=== PATIENT | female | born 1945 | race Caucasian/White ===

== ENCOUNTER 2016-10-26 16:50 | Emergency (ER) | payer OTHER, BC ==
--- NOTE | 2016-10-26 17:19 | PDOC ---
History of Present Illness - General History Source: Patient Exam Limitations: No Limitations - History of Present Illness Initial Comments: The patient is a 71 year old female with a significant past medical history of Alzheimer's dementia, chronic vasculitis, chronic rheumatoid arthritis, on steroids, DMARDs, pain medicine, and hypertension, who presents to the ED with intermittent abdominal pain, nausea, vomiting for the past 5 days. Patient has not been eating much for 5 days due to a loss of appetite. Patient states she has lost 40 pounds in the past year. Denies SOB, chest pain, fever, chills, headache, diarrhea, hematochezia. Patient denies dysuria, frequency, urinary Patient denies sick contacts, recent travels. Patient is a current smoker. PCP: Dr. Fajardo Restaurant Mgr: Dr. Vicente <Primo Blackwell - Last Filed: 10/26/16 20:10> - General History Source: Patient Exam Limitations: No Limitations <Cory Cabral - Last Filed: 10/27/16 07:28> - General Chief Complaint: Chronic pain Stated Complaint: CHRONIC ABDOMINAL PAIN Time Seen by Provider: 10/26/16 17:01 Past History <Primo Blackwell - Last Filed: 10/26/16 20:10> - Past Medical History Cardiac Disorders: Yes (ATRIAL FIBRILLATION) COPD: Yes Dementia: Yes (Memory loss) HTN: Yes Hypercholesterolemia: Yes Seizures: Yes - Surgical History Orthopedic Surgery: Yes (Left Toal Hip Replacement) - Immunization History Td Vaccination: Yes (6 YEARS AGO) Immunization Up to Date: Yes - Psycho/Social/Smoking Cessation Hx Anxiety: No Suicidal Ideation: No Smoking Status: Yes Smoking History: Current every day smoker Have you smoked in the past 12 months: No Number of Cigarettes Smoked Daily: 20 Hx Alcohol Use: No Drug/Substance Use Hx: No Substance Use Type: None <Cory Cabral - Last Filed: 10/27/16 07:28> - Past Medical History Allergies/Adverse Reactions: Allergies Allergy/AdvReac Type Severity Reaction Status Date / Time Sulfa (Sulfonamide Allergy Hives Verified 02/12/15 07:16 Antibiotics) dipyridamole AdvReac Mild headache Verified 02/12/15 07:17 [From Persantine] indomethacin [From Indocin] AdvReac Mild headache Verified 02/12/15 07:17 Home Medications: Ambulatory Orders Amlodipine Besylate [Norvasc -] 5 mg PO HS 10/26/16 Ascorbate Calcium [Vitamin C] 500 mg PO DAILY 10/26/16 Bupropion HCl [Bupropion HCl Sr] 150 mg PO DAILY 10/26/16 Cholecalciferol (Vitamin D3) [Vitamin D3 -] 2,000 unit PO DAILY 10/26/16 Clonidine HCl [Catapres] 0.3 mg PO DAILY 10/26/16 Donepezil HCl [Aricept -] 5 mg PO DAILY 10/26/16 Enalapril Maleate [Vasotec] 20 mg PO HS 10/26/16 Esomeprazole Magnesium [Nexium 24Hr] 40 mg PO DAILY 10/26/16 Folic Acid - 1 mg PO DAILY 10/26/16 Furosemide [Lasix -] 20 mg PO MOWEFR 10/26/16 Gabapentin [Neurontin] 600 mg PO DAILY 10/26/16 Hydralazine HCl [Apresoline -] 25 mg PO DAILY 10/26/16 Hydralazine HCl [Apresoline -] 50 mg PO HS 10/26/16 Immun Glob G(IgG)/Gly/Iga Ov50 [Gammagard Liquid 10% Vial] 40 ml IJ ASDIR Levothyroxine [Synthroid -] 25 mcg PO DAILY 10/26/16 Lutein 40 mg PO DAILY 10/26/16 Methotrexate [Mexate -] 20 mg PO Q7D 10/26/16 Metoprolol Tartrate [Lopressor -] 50 mg PO DAILY 10/26/16 Metoprolol Tartrate [Lopressor -] 75 mg PO HS 10/26/16 Mirtazapine 15 mg PO DAILY 10/26/16 Morphine *Sr* [Ms Contin -] 12 mg PO DAILY 10/26/16 Morphine *Sr* [Ms Contin -] 30 mg PO HS 10/26/16 Potassium Chloride [Klor-Con 10] 10 meq PO BID 10/26/16 Prednisone [Deltasone -] 5 mg PO DAILY 10/26/16 Simvastatin 40 mg PO DAILY 10/26/16 Vitamin E 800 unit PO DAILY 10/26/16 Review of Systems - Review of Systems Able to Perform ROS?: Yes Comments:: 10/26/16 17:55 GENERAL/CONSTITUTIONAL: No fever or chills. No weakness. Loss in appetite. HEAD, EYES, EARS, NOSE AND THROAT: No change in vision. No ear pain or discharge. No sore throat. CARDIOVASCULAR: No chest pain or shortness of breath. RESPIRATORY: No cough, wheezing, or hemoptysis. GASTROINTESTINAL: + nausea, vomiting, abdominal pain. No diarrhea or constipation. GENITOURINARY: No dysuria, frequency, or change in urination. MUSCULOSKELETAL: No joint or muscle swelling or pain. No neck or back pain. SKIN: No rash NEUROLOGIC: No headache, vertigo, loss of consciousness, or change in strength/ sensation. ENDOCRINE: No increased thirst. No abnormal weight change. HEMATOLOGIC/LYMPHATIC: No anemia, easy bleeding, or history of blood clots. ALLERGIC/IMMUNOLOGIC: No hives or skin allergy. <Primo Blackwell - Last Filed: 10/26/16 20:10> *Physical Exam - Vital Signs Last Vital Signs Temp Pulse Resp BP Pulse Ox 99.2 F 62 18 142/70 94 L 10/26/16 17:00 10/26/16 17:00 10/26/16 17:00 10/26/16 17:00 10/26/16 17:00 - Physical Exam Comments: 10/26/16 17:55 GENERAL: Awake, alert, and fully oriented, in no acute distress HEAD: No signs of trauma EYES: PERRLA, EOMI, sclera anicteric, conjunctiva clear ENT: Auricles normal inspection, hearing grossly normal, nares patent, oropharynx clear without exudates. Moist mucosa NECK: Normal ROM, supple, no lymphadenopathy, JVD, or masses LUNGS: Breath sounds equal, clear to auscultation bilaterally. No wheezes, and no crackles HEART: Regular rate and rhythm, normal S1 and S2, no murmurs, rubs or gallops ABDOMEN: Soft, nontender, normoactive bowel sounds. No guarding, no rebound. No masses EXTREMITIES: Normal range of motion, no edema. No clubbing or cyanosis. No cords, erythema, or tenderness NEUROLOGICAL: Cranial nerves II through XII grossly intact. Normal speech, normal gait SKIN: Warm, Dry, normal turgor, no rashes or lesions noted. <Primo Blackwell - Last Filed: 10/26/16 20:10> ED Treatment Course - LABORATORY CBC & Chemistry Diagram: 10/26/16 17:37 10/26/16 17:37 <Primo Blackwell - Last Filed: 10/26/16 20:10> - LABORATORY CBC & Chemistry Diagram: 10/26/16 17:37 10/26/16 17:37 - RADIOLOGY Radiology Studies Ordered: Category Date Time Status ABDOMEN & PELVIS CT WITH CONTR [CT] Stat CT Scan 10/26/16 17:[address] WITHOUT CONTRAST [CT] Stat CT Scan 10/26/16 17:12 Ordered CHEST X-RAY PORTABLE* [RAD] Stat Radiology 10/26/16 17:11 Ordered <MariannaCory - Last Filed: 10/27/16 07:28> Medical Decision Making - Medical Decision Making 10/26/16 20:[address] Wayne ( on-call for PCP Dr. Fajardo) at 20:10. <Primo Blackwell - Last Filed: 10/26/16 20:10> - Medical Decision Making 10/26/16 17:19 A portion of this note was documented by scribe services under my direction. I have reviewed the details of the note, within reason, and agree with the documentation with the following case summary and management plan written by me. Patient treated in the ED. Nursing notes are reviewed and incorporated into the medical decision-making. Vital signs reviewed. Peripheral IV access obtained by the nurse, laboratory studies are drawn and sent, reviewed and interpreted by myself. 71 year old female with past medical history of arthritis, dementia, high blood pressure, CHF, pulmonary embolism, hyperlipidemia, asthma/COPD, current smoker presents with failure to thrive. The patient over the course of the year has been having intermittent chronic abdominal pain. She has been may be having poor appetite and more recently since last 5 days. Patient reports every time she eats she feels nauseous. Denies any abdominal pain at this moment. Denies fevers or chills or sick contact. Denies diarrhea. The daughter had noted that the patient has lost 40 pounds over the course of the year but the patient maintains no appetite. Patient called her doctor who advised patient to come to the ER. The patient appears to be having failure to thrive. This may be secondary to poor appetite. However, we'll need to investigate for other causes such as occult infection, cardiac abnormalities, metabolic disarray, intra-abdominal or intracranial disarray, malignancy. However, the patient overall is non-toxic appearing. We'll obtain labs, CAT scan and reassess and touch base with the PMD. 10/26/16 19:12 CBC, BMP 10/26/16 17:37 10/26/16 17:37 CMP Sodium 131 mmol/L (136-145) L 10/26/16 17:37 Potassium 3.9 mmol/L (3.5-5.1) 10/26/16 17:37 Chloride 94 mmol/L (98-107) L 10/26/16 17:37 Carbon Dioxide 30 mmol/L (22-28) H 10/26/16 17:37 Anion Gap 7 (8-16) L 10/26/16 17:37 BUN 10 mg/dl (7-18) D 10/26/16 17:37 Creatinine 0.5 mg/dl (0.6-1.3) L D 10/26/16 17:37 Creat Clearance w eGFR > 60 (>60) 10/26/16 17:37 Random Glucose 101 mg/dl (74-106) 10/26/16 17:37 Calcium 9.0 mg/dl (8.4-10.2) 10/26/16 17:37 Phosphorus 3.4 mg/dl (2.5-4.6) 10/26/16 17:37 Magnesium 1.6 mg/dL (1.8-2.4) L 10/26/16 17:37 Total Bilirubin 0.5 mg/dl (0.2-1.0) 10/26/16 17:37 AST 27 U/L (10-42) 10/26/16 17:37 ALT < 9 U/L (10-40) L 10/26/16 17:37 Alkaline Phosphatase 72 U/L (32-92) 10/26/16 17:37 Creatine Kinase 18 IU/L (26-140) L 10/26/16 17:37 Troponin I < 0.03 ng/ml (0.03-0.50) L 10/26/16 17:37 Total Protein 6.9 g/dl (6.4-8.3) 10/26/16 17:37 Albumin 2.9 g/dl (3.5-5.0) L 10/26/16 17:37 Urine Test Results Urine Color Yellow 10/26/16 18:15 Urine Appearance Clear 10/26/16 18:15 Urine pH 7.0 (4.5-8) 10/26/16 18:15 [address] [place] 1.015 (1.005-1.025) 10/26/16 18:15 Urine Protein Trace (NEGATIVE) 10/26/16 18:15 Urine Glucose (UA) Negative (NEGATIVE) 10/26/16 18:15 Urine Ketones Trace (NEGATIVE) 10/26/16 18:15 Urine Blood 1+ (NEGATIVE) H 10/26/16 18:15 Urine Nitrite Negative (NEGATIVE) 10/26/16 18:15 Urine Bilirubin Negative (NEGATIVE) 10/26/16 18:15 Ur Leukocyte Esterase Trace (NEGATIVE) 10/26/16 18:15 CT head reviewed. No acute findings. Chest xray reviewed. [facility] Ruiz for further management and disposition. <Cory Cabral - Last Filed: 10/27/16 07:28> *DC/Admit/Observation/Transfer - Attestations Scribe Attestion: 10/26/16 17:56 Documentation prepared by Primo Blackwell, acting as biomedical engineering director for Cory Cabral MD, . <Primo Blackwell - Last Filed: 10/26/16 20:10> <Cory Cabral - Last Filed: 10/27/16 07:28> Diagnosis at time of Disposition: Failure to thrive, Abdominal pain - Discharge Dispostion Disposition: HOME Condition at time of disposition: Good - Referrals Referrals: Devin Fajardo MD [Primary Care Provider] - - Patient Instructions Additional Instructions: Is very call important that you call Dr. Fajardo in the morning and follow-up with Tana. Make sure you take copies of the blood work and CAT scan report to Dr. Fajardo when you follow-up with him. Return to the emergency department immediately with ANY new, persistent or worsening symptoms. Continue any medications as previously prescribed by your physician. You should follow up with your primary doctor as soon as possible regarding today's emergency department visit. . Please make sure your doctor reviews the results of your emergency evaluation. Thank you for coming to the Emergency Department today for your care. It was a pleasure to see you today. Please note that your evaluation is INCOMPLETE until you follow-up with your doctor.
[2016-10-26 17:45] LABS: BASOPHIL 1.1 % (0-2.0); EOSINOPHIL 1.6 % (0-4.5); MCH 30.5 pg (25.7-33.7); MCHC 33.3 g/dl (32.0-36.0); MEAN CELL VOLUME 91.8 fl (80-96); PLATELET COUNT 317 K/MM3 (134-434); WHITE BLOOD COUNT 6.7 K/mm3 (4.0-10.0)
[2016-10-26 17:46] VITALS: BP 142/70; PULSE 62; TEMP 99.2; BMI 22.3
[2016-10-26 18:02] LABS: ALBUMIN 2.9 g/dl (3.5-5.0); ALK PHOS 72 U/L (32-92); ANION GAP 7 (8-16); BILIRUBIN,TOTAL 0.5 mg/dl (0.2-1.0); CO2 30 mmol/L (22-28); CPK(DFH) 18 IU/L (26-140); CREATININE 0.5 mg/dl (0.6-1.3); GLUCOSE,RANDOM 101 mg/dl (74-106); MAGNESIUM 1.6 mg/dL (1.8-2.4); PHOSPHOROUS 3.4 mg/dl (2.5-4.6); SGOT/AST 27 U/L (10-42); TOT PROT 6.9 g/dl (6.4-8.3)
[2016-10-26] MEDS ORDERED: MAGNESIUM SULF 50% (8.12 MEQ/2 ML-1 GM VIAL) IVPB ONE (18:06)
[2016-10-26 18:13] LABS: INR 1.11 (0.82-1.09); PROTHROMBIN TIME (PATIENT) 12.4 SEC (10.2-13.0)
[2016-10-26 18:27] LABS: SGPT/ALT < 9 U/L (10-40)
[2016-10-26 18:42] LABS: TROPONIN I (DFP) < 0.03 ng/ml (0.03-0.50)
[2016-10-26 18:52] LABS: URINE APPEARANCE Clear; URINE BILIRUBIN Negative (NEGATIVE); URINE GLUCOSE (UA) Negative (NEGATIVE); URINE KETONE Trace (NEGATIVE); URINE LEUK ESTERASE Trace (NEGATIVE); URINE NITRITE Negative (NEGATIVE); URINE PROTEIN Trace (NEGATIVE); URINE UROBILINOGEN 4.0 E.U/dl (0.2-1.0)
[2016-10-26 18:58] LABS: URINE COLOR YELLOW
[2016-10-26] MEDS ORDERED: MAGNESIUM SULF 50% (8.12 MEQ/2 ML-1 GM VIAL) ONE (19:01)
[2016-10-26 19:21] LABS: URINE BLOOD 1+ (NEGATIVE)
[2016-10-26 20:31] LABS: THYROID STIMULATING HORMONE 0.75 uIU/ml (0.358-3.74)
--- NOTE | 2016-10-26 21:11 | PDOC ---
[id number] 94 L 10/26/16 17:00 10/26/16 17:00 10/26/16 17:00 10/26/16 17:00 10/26/16 17:00 ED Treatment Course - LABORATORY CBC & Chemistry Diagram: 10/26/16 17:37 10/26/16 17:37 - ADDITIONAL ORDERS Additional order review: Laboratory Results 10/26/16 10/26/16 10/26/16 18:15 17:37 17:37 INR PTT (Actin FS) Sodium 131 L Potassium 3.9 Chloride 94 L Carbon Dioxide 30 H Anion Gap 7 L BUN 10 D Creatinine 0.5 L D Creat Clearance w eGFR > 60 Random Glucose 101 Calcium 9.0 Phosphorus 3.4 Magnesium 1.6 L Total Bilirubin 0.5 AST 27 ALT < 9 L Alkaline Phosphatase 72 Creatine Kinase 18 L Troponin I < 0.03 L Total Protein 6.9 Albumin 2.9 L TSH 0.75 D Urine Color Yellow Urine Appearance Clear Urine pH 7.0 Ur Specific [place] 1.015 Urine Protein Trace Urine Glucose (UA) Negative Urine Ketones Trace Urine Blood 1+ H Urine Nitrite Negative Urine Bilirubin Negative Urine Urobilinogen 4.0 e.u/dl H Ur Leukocyte Esterase Trace 10/26/16 17:37 INR 1.11 PTT (Actin FS) 28.0 Sodium Potassium Chloride Carbon Dioxide Anion Gap BUN Creatinine Creat Clearance w eGFR Random Glucose Calcium Phosphorus Magnesium Total Bilirubin AST ALT Alkaline Phosphatase Creatine Kinase Troponin I Total Protein Albumin TSH Urine Color Urine Appearance Urine pH Ur Specific [place] Urine Protein Urine Glucose (UA) Urine Ketones Urine Blood Urine Nitrite Urine Bilirubin Urine Urobilinogen Ur Leukocyte Esterase 10/26/16 17:37 RBC 4.59 MCV 91.8 MCHC 33.3 RDW 16.0 H MPV 7.0 L Neutrophils % 69.0 Lymphocytes % 21.8 Monocytes % 6.5 Eosinophils % 1.6 Basophils % 1.1 - Medications Given in the ED: ED Medications Discontinued Medications Generic Name Dose Route Start Last Admin Trade Name Freq PRN Reason Stop Dose Admin Magnesium Sulfate 2 gm 10/26/16 18:06 10/26/16 19:00 Magnesium Sulfate IVPB 10/26/16 18:07 2 gm ONCE ONE Administration Progress Note - Progress Note Progress Note: Care of this patient was transferred to [place] from Dr. Cabral at 1900 hrs. Patient has a workup pending for weight loss and failure to thrive. Plan is that if patient's CAT scan is negative that I will talk with her primary care physician and make a decision as to whether or not she should be admitted or go home Patient's CAT scan was unremarkable for any new or acute pathology and essentially unchanged from prior CAT scans. Discussed results with patient's daughter who wanted patient to be admitted. Dr. Fajardo he was not information engineer the doctor covering for him was on-call and felt that patient did not need an inpatient workup but should be discharged and get her workup as an outpatient as it had been chronic ongoing for over a year. Patient discharged home with her daughter and will follow-up with her primary care doctor Dr. Fajardo *DC/Admit/Observation/Transfer Diagnosis at time of Disposition: Failure to thrive Qualifiers: Failure to thrive age range: in adult Qualified Code(s): R62.7 - Adult failure to thrive Abdominal pain Qualifiers: Abdominal location: generalized Qualified Code(s): R10.84 - Generalized abdominal pain - Discharge Dispostion Disposition: HOME Condition at time of disposition: Good Admit: No - Referrals Referrals: Devin Fajardo MD [Primary Care Provider] - - Patient Instructions Additional Instructions: Is very call important that you call Dr. Fajardo in the morning and follow-up with Tana. Make sure you take copies of the blood work and CAT scan report to Dr. Fajardo when you follow-up with him. Return to the emergency department immediately with ANY new, persistent or worsening symptoms. Continue any medications as previously prescribed by your physician. You should follow up with your primary doctor as soon as possible regarding today's emergency department visit. . Please make sure your doctor reviews the results of your emergency evaluation. Thank you for coming to the Emergency Department today for your care. It was a pleasure to see you today. Please note that your evaluation is INCOMPLETE until you follow-up with your doctor. - Post Discharge Activity
--- NOTE | 2016-10-27 13:41 | EKG ---
Test Reason : Blood Pressure : / mmHG Vent. Rate : 058 BPM Atrial Rate : 058 BPM P-R Int : 182 ms QRS Dur : 080 ms QT Int : 434 ms P-R-T Axes : 000 029 075 degrees QTc Int : 426 ms SINUS BRADYCARDIA OTHERWISE NORMAL ECG WHEN COMPARED WITH ECG OF 01-AUG-2014 17:59, NO SIGNIFICANT CHANGE WAS FOUND Confirmed by GLORIA CALVILLO MD ([id number]) on 10/27/2016 1:41:13 PM Referred By: BRANDIE Confirmed By:GLORIA CALVILLO MD
== END 2016-10-26 21:14 | disposition home or self-care (01) ==
LOC: FER 16:50
PROC: 3E033GC Introduction of Other Therapeutic Substance into Peripheral Vein, Percutaneous Approach (ICD-10-PCS; principal; 2016-10-26)
DX: R10.9 Unspecified abdominal pain (principal); R62.51 Failure to thrive (child); I48.91 Unspecified atrial fibrillation; F17.210 Nicotine dependence, cigarettes, uncomplicated; I10 Essential (primary) hypertension; E78.00 Pure hypercholesterolemia, unspecified; F03.90 Unspecified dementia, unspecified severity, without behavioral disturbance, psychotic disturbance, mood disturbance, and anxiety; J44.9 Chronic obstructive pulmonary disease, unspecified
CPT/HCPCS: 36415; 70450-TC; 71010-TC; 74177-TC; 80053; 81003; 82550; 83735; 84100; 84443; 84484; 85025; 85610; 85730; 87086; 93005; 96374; 99283-25

== ENCOUNTER 2017-04-13 09:52 | Inpatient (IN) | payer OTHER, BC ==
[2017-04-13] MEDS ORDERED: PANTOPRAZOLE SODIUM 40 MG in SODIUM CHLORIDE 100 ML IVPB ONE (10:42)
[2017-04-13] MEDS ORDERED: SODIUM CHLORIDE 1,000 ML IV STA (10:42)
[2017-04-13] MEDS ORDERED: ONDANSETRON 4 MG/2 ML VIAL IVPUSH ONE (10:42)
[2017-04-13] MEDS ORDERED: ONDANSETRON 4 MG/2 ML VIAL ONE (10:55)
[2017-04-13] MEDS ORDERED: PANTOPRAZOLE SODIUM 100 ML IVPB ONE (10:55)
--- NOTE | 2017-04-13 11:07 | PDOC ---
History of Present Illness - General Chief Complaint: Pain, Acute Stated Complaint: PAIN Time Seen by Provider: 04/13/17 10:14 History Source: Patient Exam Limitations: No Limitations - History of Present Illness Travel History: No Initial Comments: 04/13/17 10:54 71-year-old female presents to the emergency room with complaints of intermittent nausea for the past week associated with difficulty taking her medications and eating due to the nausea. Patient also describing cramping burning sensation to epigastric region that does not radiate to her chest or lower abdomen. Patient denies history of GI disorders but states history of rheumatoid arthritis, dementia, and hypertension. Timing/Duration: reports: intermittent Quality: reports: moderate, burning, cramping, sharpness Pain Radiation: reports: no radiation Activities at Onset: reports: none Aggravating Factors: improves with: None Alleviating Factors: improves with: None Past History - Travel Traveled outside of the country in the last 30 days: No Close contact w/someone who was outside of country & ill: No - Past Medical History Allergies/Adverse Reactions: Allergies Allergy/AdvReac Type Severity Reaction Status Date / Time Sulfa (Sulfonamide Allergy Hives Verified 04/13/17 09:56 Antibiotics) dipyridamole AdvReac Mild headache Verified 04/13/17 09:56 [From Persantine] indomethacin [From Indocin] AdvReac Mild headache Verified 04/13/17 09:56 Home Medications: Ambulatory Orders Amlodipine Besylate [Norvasc -] 5 mg PO HS 10/26/16 Ascorbate Calcium [Vitamin C] 500 mg PO DAILY 10/26/16 Bupropion HCl [Bupropion HCl Sr] 150 mg PO DAILY 10/26/16 Cholecalciferol (Vitamin D3) [Vitamin D3 -] 2,000 unit PO DAILY 10/26/16 Enalapril Maleate [Vasotec] 20 mg PO HS 10/26/16 Folic Acid - 1 mg PO DAILY 10/26/16 Furosemide [Lasix -] 20 mg PO MOWEFR 10/26/16 Gabapentin [Neurontin] 600 mg PO DAILY 10/26/16 Hydralazine HCl [Apresoline -] 25 mg PO DAILY 10/26/16 Hydralazine HCl [Apresoline -] 50 mg PO HS 10/26/16 Immun Glob G(IgG)/Gly/Iga Ov50 [Gammagard Liquid 10% Vial] 40 ml IJ ASDIR Levothyroxine [Synthroid -] 25 mcg PO DAILY 10/26/16 Lutein 40 mg PO DAILY 10/26/16 Methotrexate [Mexate -] 20 mg PO Q7D 10/26/16 Metoprolol Tartrate [Lopressor -] 50 mg PO DAILY 10/26/16 Metoprolol Tartrate [Lopressor -] 75 mg PO HS 10/26/16 Mirtazapine 15 mg PO DAILY 10/26/16 Potassium Chloride [Klor-Con 10] 10 meq PO BID 10/26/16 Prednisone [Deltasone -] 5 mg PO DAILY 10/26/16 Simvastatin 40 mg PO DAILY 10/26/16 Gemfibrozil 600 mg PO BID 04/13/17 Morphine *Sr* [Ms Contin -] 15 mg PO Q12H 04/13/17 Ranitidine [Zantac -] 300 mg PO DAILY 04/13/17 Cardiac Disorders: Yes (ATRIAL FIBRILLATION) COPD: Yes Dementia: Yes (Memory loss) GI Disorders: Yes (CHRONIC ABDOMINAL PAIN) HTN: Yes Hypercholesterolemia: Yes Seizures: No - Surgical History Orthopedic Surgery: Yes (Left Toal Hip Replacement) - Immunization History Td Vaccination: Yes (6 YEARS AGO) Immunization Up to Date: Yes - Suicide/Smoking/Psychosocial Hx Smoking Status: Yes Smoking History: Current every day smoker Have you smoked in the past 12 months: No Number of Cigarettes Smoked Daily: 20 Information on smoking cessation initiated: No 'Breaking Loose' booklet given: 10/26/16 Hx Alcohol Use: No Drug/Substance Use Hx: No Substance Use Type: None Patient Lives Alone: No Lives with/in: spouse/SO Review of Systems - Review of Systems Able to Perform ROS?: Yes Constitutional: Yes: Loss of Appetite. No: Fever HEENTM: No: Symptoms Reported Respiratory: No: Symptoms reported Cardiac (ROS): No: Symptoms Reported ABD/GI: Yes: Nausea, Poor Appetite, Poor Fluid Intake, Abdominal cramping. No: Constipated, Diarrhea : No: Symptoms Reported Musculoskeletal: No: Symptoms Reported Integumentary: No: Symptoms Reported Neurological: No: Symptoms reported Endocrine: No: Symptoms Reported Hematologic/Lymphatic: No: Symptoms Reported *Physical Exam - Vital Signs Last Vital Signs Temp Pulse Resp BP Pulse Ox 98.9 F 66 14 143/64 95 04/13/17 09:57 04/13/17 09:57 04/13/17 09:57 04/13/17 09:57 04/13/17 09:57 - Physical Exam General Appearance: Yes: Nourished, Appropriately Dressed. No: Apparent Distress HEENT: positive: EOMI, CANELO, Pharynx Normal. negative: Pale Conjunctivae Neck: positive: Supple Respiratory/Chest: positive: Lungs Clear, Normal Breath Sounds. negative: Respiratory Distress, Accessory Muscle Use Cardiovascular: positive: Regular Rhythm, Regular Rate. negative: Murmur Gastrointestinal/Abdominal: positive: Normal Bowel Sounds, Soft, Tenderness ( epigastric and right epigastric border). negative: Distended, Guarding, Rebound , Hernia, Mass Musculoskeletal: negative: Normal Inspection Extremity: positive: Normal Capillary Refill Integumentary: positive: Normal Color, Warm, Moist Neurologic: positive: Motor Strength 5/5 (ambulatory) Heart Score/ECG Review - ECG Intrepretation Rhythm: Regular Rhythm (sinus bradycardia at 58) ED Treatment Course - LABORATORY CBC & Chemistry Diagram: 04/13/17 11:08 04/13/17 11:08 - RADIOLOGY Radiology Studies Ordered: Category Date Time Status CHEST X-RAY PORTABLE* [RAD] Stat Radiology 04/13/17 10:42 Ordered Medical Decision Making - Medical Decision Making 04/13/17 11:09 Patient here with complaints of intermittent nausea along with epigastric pain for the past week unable to take her meds and properly secondary to the above. Patient has no other complaints at this time. Patient exam did have epigastric pain with no right upper quadrant tenderness. Patient concerning for gastritis versus GERD versus cholecystitis versus pancreatitis , UTI, and ACS. Patient ordered for chest x-ray, EKG, cardiac profile, CBC, comp, lipase, urinalysis IV fluids, Protonix and Zofran. D 04/13/17 12:57 Laboratory Tests 04/13/17 04/13/17 04/13/17 11:08 11:08 11:20 WBC 4.9 D Hgb 13.8 Hct 40.9 RDW 16.7 H Plt Count 244 D MPV 6.9 L Monocytes % 10.5 H Sodium 130 L Potassium 3.8 Chloride 95 L Carbon Dioxide 30 Anion Gap 5 L Creatinine 0.5 L Random Glucose 101 Magnesium 1.9 AST 38 H D ALT 15 D Total Protein 8.3 H Albumin 2.9 L Lipase 104 Urine Blood 2+ H Urine Nitrite Negative Urine Urobilinogen Negative Urine RBC 1 Urine WBC 1 We will reevaluate and contact Dr. Fajardo. 04/13/17 13:27 Case discussed with nurse practitioner Constantin for Dr. Fajardo and recommended to send patient home with PPI along with GI follow-up. Patient will be given a by mouth challenge along with an abdominal ultrasound. If normal then we'll continue with plan. 04/13/17 13:47 Received a phone call again from the nurse practitioner who spoke with Dr. Fajardo and wants patient to be admitted for observation for a scheduled inpatient endoscopy. I will contact Dr. Fajardo once ultrasound has resulted. 04/13/17 15:43 Ultrasound shows no acute findings except for cholelithiasis. Will discuss case again with Dr. Fajardo or PENSION ADMINISTRATOR. Plan to admit to observation. *DC/Admit/Observation/Transfer Diagnosis at time of Disposition: Generalized weakness, Epigastric pain, Decrease in appetite - Discharge Dispostion Admit: Yes
[2017-04-13 11:26] LABS: BASOPHIL 1.1 % (0-2.0); EOSINOPHIL 3.1 % (0-4.5); MCH 31.7 pg (25.7-33.7); MCHC 33.7 g/dl (32.0-36.0); MEAN CELL VOLUME 93.9 fl (80-96); MEAN PLT VOLUME 6.9 fl (7.5-11.1); NEUTROPHILS 60.1 % (42.8-82.8); PLATELET COUNT 244 K/MM3 (134-434); RDW 16.7 % (11.6-15.6); WHITE BLOOD COUNT 4.9 K/mm3 (4.0-10.0)
[2017-04-13 11:48] LABS: URINE APPEARANCE CLEAR; URINE BILIRUBIN NEGATIVE (NEGATIVE); URINE BLOOD 2+ (NEGATIVE); URINE COLOR YELLOW; URINE GLUCOSE (UA) NEGATIVE (NEGATIVE); URINE KETONE NEGATIVE (NEGATIVE); URINE LEUK ESTERASE TRACE (NEGATIVE); URINE NITRITE NEGATIVE (NEGATIVE); URINE PROTEIN NEGATIVE (NEGATIVE); URINE UROBILINOGEN NEGATIVE mg/dL (0.2-1.0)
[2017-04-13 12:08] LABS: URINE MUCUS RARE; URINE RBC 1 /hpf (0-3); URINE WBC 1 /hpf (3-5)
[2017-04-13 12:36] LABS: ALBUMIN 2.9 g/dl (3.4-5.0); ANION GAP 5 (8-16); CALCIUM 8.8 mg/dL (8.5-10.1); CO2 30 mmol/L (21-32); CREATININE 0.5 mg/dL (0.55-1.02); GLUCOSE,RANDOM 101 mg/dL (74-106); SGPT/ALT 15 U/L (12-78)
[2017-04-13 12:40] LABS: ALK PHOS 91 U/L (45-117); BILIRUBIN,TOTAL 0.4 mg/dL (0.2-1.0); CPK 91 IU/L (26-192); TOT PROT 8.3 g/dl (6.4-8.2); TROPONIN I 0.02 ng/ml (0.00-0.05)
--- NOTE | 2017-04-13 12:44 | EKG ---
Test Reason : Blood Pressure : / mmHG Vent. Rate : 058 BPM Atrial Rate : 058 BPM P-R Int : 208 ms QRS Dur : 086 ms QT Int : 436 ms P-R-T Axes : -01 008 063 degrees QTc Int : 428 ms SINUS BRADYCARDIA BASELINE ARTIFACTS OTHERWISE NORMAL ECG WHEN COMPARED WITH ECG OF 26-OCT-2016 18:36, NO SIGNIFICANT CHANGE WAS FOUND REPEAT EKG IF CLINICALLY INDICATED Confirmed by VAHID KIRBY MD ([id number]) on 04/13/2017 12:43:47 PM Referred By: Confirmed By:VAHID KIRBY MD
[2017-04-13 12:51] LABS: MAGNESIUM 1.9 mg/dL (1.8-2.4); SGOT/AST 38 U/L (15-37)
[2017-04-13 17:17] VITALS: BMI 21.9
[2017-04-13] MEDS ORDERED: SODIUM CHLORIDE 1,000 ML IV SCH (17:30)
[2017-04-13] MEDS: METHOTREXATE 2.5 MG TABLET PO SCH (20:29)
[2017-04-13] MEDS ORDERED: ENALAPRIL MALEATE 10 MG TABLET (FP) PO SCH (22:00)
[2017-04-13] MEDS ORDERED: METOPROLOL TARTRATE 25 MG TABLET (FP) PO SCH (22:00)
[2017-04-13] MEDS: morphine SO4 SUSTAINED ACTING 15 MG TABLET.SA PO SCH (22:57)
[2017-04-13] MEDS: POTASSIUM CHLORIDE TABS 10 MEQ TABLET.ER (FP) PO SCH (22:57)
[2017-04-13] MEDS: GEMFIBROZIL 600 MG TABLET (FP) PO SCH (23:37)
[2017-04-13] MEDS: hydrALAZINE HCL 50 MG TABLET (FP) PO SCH (23:38)
[2017-04-13] MEDS: amLODIPine BESYLATE 5 MG TABLET (FP) PO SCH (23:38)
[2017-04-13] MEDS: oxyCODONE HCL 5 MG TABLET PO PRN (23:40)
[2017-04-14] MEDS: ONDANSETRON 4 MG/2 ML VIAL IVPB PRN ×2 (05:18→20:40)
[2017-04-14] MEDS: oxyCODONE HCL 5 MG TABLET PO PRN ×3 (06:31→20:26)
[2017-04-14] MEDS: LEVOTHYROXINE NA 25 MCG TABLET (FP) PO SCH (06:31)
--- NOTE | 2017-04-14 08:39 | HP ---
Admitting History and Physical - Admission History of Present Illness: 71-year-old female presents to the emergency room with complaints of intermittent nausea for the past week associated with difficulty taking her medications and eating due to the nausea. Patient also describing cramping burning sensation to epigastric region that does not radiate to her chest or lower abdomen. 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 FEEDER: Yes: Dementia, Peripheral Neuropathy Cardiovascular: Yes: HTN (controlled w/ hydralazine) Pulmonary: Yes: COPD Musculoskeletal: Yes: Other (neuropathy LE) Rheumatology: Yes: Rheumatoid Arthritis, Vasculitis - Smoking History Smoking history: Current every day smoker Have you smoked in the past 12 months: No Aproximately how many cigarettes per day: 20 - Alcohol/Substance Use Hx Alcohol Use: No - Social History ADL: Family Assistance History of Recent Travel: No Home Medications - Allergies Allergies/Adverse Reactions: Allergies Allergy/AdvReac Type Severity Reaction Status Date / Time Sulfa (Sulfonamide Allergy Hives Verified 04/13/17 09:56 Antibiotics) dipyridamole AdvReac Mild headache Verified 04/13/17 09:56 [From Persantine] indomethacin [From Indocin] AdvReac Mild headache Verified 04/13/17 09:56 - Home Medications Home Medications: Ambulatory Orders Amlodipine Besylate [Norvasc -] 5 mg PO HS 10/26/16 Ascorbate Calcium [Vitamin C] 500 mg PO DAILY 10/26/16 Bupropion HCl [Bupropion HCl Sr] 150 mg PO DAILY 10/26/16 Cholecalciferol (Vitamin D3) [Vitamin D3 -] 2,000 unit PO DAILY 10/26/16 Enalapril Maleate [Vasotec] 20 mg PO HS 10/26/16 Folic Acid - 1 mg PO DAILY 10/26/16 Furosemide [Lasix -] 20 mg PO MOWEFR 10/26/16 Gabapentin [Neurontin] 600 mg PO DAILY 10/26/16 Hydralazine HCl [Apresoline -] 25 mg PO DAILY 10/26/16 Hydralazine HCl [Apresoline -] 50 mg PO HS 10/26/16 Immun Glob G(IgG)/Gly/Iga Ov50 [Gammagard Liquid 10% Vial] 40 ml IJ ASDIR Levothyroxine [Synthroid -] 25 mcg PO DAILY 04/10/17 Lutein 40 mg PO DAILY 10/26/16 Methotrexate [Mexate -] 20 mg PO Q7D 10/26/16 Metoprolol Tartrate [Lopressor -] 50 mg PO DAILY 10/26/16 Metoprolol Tartrate [Lopressor -] 75 mg PO HS 10/26/16 Mirtazapine 15 mg PO DAILY 10/26/16 Potassium Chloride [Klor-Con 10] 10 meq PO BID 10/26/16 Prednisone [Deltasone -] 5 mg PO DAILY 10/26/16 Simvastatin 40 mg PO DAILY 10/26/16 Gemfibrozil 600 mg PO BID 04/13/17 Morphine *Sr* [Ms Contin -] 15 mg PO Q12H 04/13/17 Ranitidine [Zantac -] 300 mg PO DAILY 04/13/17 Review of Systems - Review of Systems Cardiovascular: denies: Chest Pain, Palpitations Respiratory: reports: SOB on Exertion Gastrointestinal: reports: Abdominal Pain, Indigestion, Vomiting Genitourinary: reports: No Symptoms Physical Examination Vital Signs: Vital Signs Temperature 98 F 04/14/17 08:25 Pulse Rate 60 04/14/17 08:25 Respiratory Rate 18 04/14/17 08:25 Blood Pressure 110/46 04/14/17 08:25 O2 Sat by Pulse Oximetry (%) 95 04/14/17 01:16 Cardiovascular: Yes: Regular Rate and Rhythm Respiratory: Yes: Regular, CTA Bilaterally Gastrointestinal: Yes: Normal Bowel Sounds, Soft, Tenderness, Epigastrium Edema: No Problem List - Problems (1) Epigastric abdominal pain Assessment/Plan: Laboratory Tests 04/13/17 04/13/17 11:08 11:08 WBC 4.9 D Hgb 13.8 AST 38 H D ALT 15 D Lipase [address] SCAN Code(s): R10.13 - EPIGASTRIC PAIN (2) CAD (coronary artery disease) Assessment/Plan: SAME MEDS CARDIO Code(s): I25.10 - ATHSCL HEART DISEASE OF [place] CORONARY ARTERY W/O ANG PCTRS (3) Cholelithiases Assessment/Plan: CT SCAN Code(s): K80.20 - CALCULUS OF GALLBLADDER W/O CHOLECYSTITIS W/O OBSTRUCTION (4) Hyponatremia Assessment/Plan: MAYBE FROM VOMITING SERUM AND URINE OSMO FOLLOW LABS Code(s): E87.1 - HYPO-OSMOLALITY AND HYPONATREMIA
[2017-04-14 08:42] LABS: MCH 31.5 pg (25.7-33.7); MCHC 33.5 g/dl (32.0-36.0); MEAN CELL VOLUME 94.1 fl (80-96); MEAN PLT VOLUME 6.5 fl (7.5-11.1); PLATELET COUNT 210 K/MM3 (134-434); WHITE BLOOD COUNT 3.6 K/mm3 (4.0-10.0)
[2017-04-14 09:15] LABS: ALBUMIN 2.7 g/dl (3.4-5.0); ANION GAP 7 (8-16); CALCIUM 8.8 mg/dL (8.5-10.1); CO2 30 mmol/L (21-32); GLUCOSE,RANDOM 74 mg/dL (74-106)
[2017-04-14 09:21] LABS: ALK PHOS 81 U/L (45-117); BILIRUBIN,TOTAL 0.6 mg/dL (0.2-1.0); CREATININE 0.4 mg/dL (0.55-1.02); SGOT/AST 28 U/L (15-37); SGPT/ALT 13 U/L (12-78); TOT PROT 7.2 g/dl (6.4-8.2)
[2017-04-14] MEDS ORDERED: PANTOPRAZOLE SODIUM 40 MG in SODIUM CHLORIDE 100 ML IVPB SCH (10:00)
[2017-04-14] MEDS ORDERED: RANITIDINE HCL 150 MG TABLET (FP) PO SCH (10:00)
[2017-04-14] MEDS ORDERED: LUTEIN 40 MG PO SCH (10:00)
--- NOTE | 2017-04-14 10:45 | CON.CARD ---
Cardiology Consult (text) - Consultation Consultation Note: cc: epigastric pain, nausea hpi: 71 f hx copd, htn, hld, dementia, possible cad (+mibi) here with epigastric pain/nausea for 1 week. No cp, sob, palps, dizzy, loc, pnd, orthopnea, le edema, anginal sxs. US shows gallstones but no signs cholecystitis. pmh: per hpi psh: nc social: no tob fam: no premature cad/scd ros: per hpi; no fever, muscle pain, cough, nasal congestion, vision changes, troncoso , wt loss, gib, hematuria meds: Home Medications Medication Instructions Recorded Amlodipine Besylate [Norvasc -] 5 mg PO HS 10/26/16 Ascorbate Calcium [Vitamin C] 500 mg PO DAILY 10/26/16 Bupropion HCl [Bupropion HCl Sr] 150 mg PO DAILY 10/26/16 Cholecalciferol (Vitamin D3) 2,000 unit PO DAILY 10/26/16 [Vitamin D3 -] Enalapril Maleate [Vasotec] 20 mg PO HS 10/26/16 Folic Acid - 1 mg PO DAILY 10/26/16 Furosemide [Lasix -] 20 mg PO MOWEFR 10/26/16 Gabapentin [Neurontin] 600 mg PO DAILY 10/26/16 Hydralazine HCl [Apresoline -] 25 mg PO DAILY 10/26/16 Hydralazine HCl [Apresoline -] 50 mg PO HS 10/26/16 Immun Glob G(IgG)/Gly/Iga Ov50 40 ml IJ ASDIR 10/26/16 [Gammagard Liquid 10% Vial] Levothyroxine [Synthroid -] 25 mcg PO DAILY 10/26/16 Lutein 40 mg PO DAILY 10/26/16 Methotrexate [Mexate -] 20 mg PO Q7D 10/26/16 Metoprolol Tartrate [Lopressor -] 50 mg PO DAILY 10/26/16 Metoprolol Tartrate [Lopressor -] 75 mg PO HS 10/26/16 Mirtazapine 15 mg PO DAILY 10/26/16 Potassium Chloride [Klor-Con 10] 10 meq PO BID 10/26/16 Prednisone [Deltasone -] 5 mg PO DAILY 10/26/16 Simvastatin 40 mg PO DAILY 10/26/16 Gemfibrozil 600 mg PO BID 04/13/17 Morphine *Sr* [Ms Contin -] 15 mg PO Q12H 04/13/17 Ranitidine [Zantac -] 300 mg PO DAILY 04/13/17 pe: Vital Signs Period Temp Pulse Resp BP Sys/[place] Pulse Ox Last 24 Hr 98 F-98.5 F 58-66 16-20 110-159/46-68 93-96 nad no jvd rrr s1s2 no mrg cta bl nl eff aaox3 no le e/c/c abd mild epigastric tenderness, nd, pos bs no jaundice diaphoresis +dp pt, no carotid bruits Laboratory Last Values WBC 3.6 K/mm3 (4.0-10.0) L 04/14/17 07:10 RBC 4.03 M/mm3 (3.60-5.2) 04/14/17 07:10 Hgb 12.7 GM/dL (10.7-15.3) 04/14/17 07:10 Hct 37.9 % (32.4-45.2) 04/14/17 07:10 MCV 94.1 fl (80-96) 04/14/17 07:10 MCH 31.5 pg (25.7-33.7) 04/14/17 07:10 MCHC 33.5 g/dl (32.0-36.0) 04/14/17 07:10 RDW 17.0 % (11.6-15.6) H 04/14/17 07:10 Plt Count 210 K/MM3 (134-434) 04/14/17 07:10 MPV 6.5 fl (7.5-11.1) L 04/14/17 07:10 Neutrophils % 60.1 % (42.8-82.8) 04/13/17 11:08 Lymphocytes % 25.2 % (8-40) D 04/13/17 11:08 Monocytes % 10.5 % (3.8-10.2) H 04/13/17 11:08 Eosinophils % 3.1 % (0-4.5) D 04/13/17 11:08 Basophils % 1.1 % (0-2.0) 04/13/17 11:08 Sodium 133 mmol/L (136-145) L 04/14/17 07:10 Potassium 3.8 mmol/L (3.5-5.1) 04/14/17 07:10 Chloride 96 mmol/L (98-107) L 04/14/17 07:10 Carbon Dioxide 30 mmol/L (21-32) 04/14/17 07:10 Anion Gap 7 (8-16) L 04/14/17 07:10 BUN 8 mg/dL (7-18) D 04/14/17 07:10 Creatinine 0.4 mg/dL (0.55-1.02) L 04/14/17 07:10 Creat Clearance w eGFR > 60 (>60) 04/14/17 07:10 Random Glucose 74 mg/dL (74-106) D 04/14/17 07:10 Serum Osmolality Cancelled 04/14/17 07:10 Calcium 8.8 mg/dL (8.5-10.1) 04/14/17 07:10 Magnesium 1.9 mg/dL (1.8-2.4) 04/13/17 11:08 Total Bilirubin 0.6 mg/dL (0.2-1.0) D 04/14/17 07:10 AST 28 U/L (15-37) D 04/14/17 07:10 ALT 13 U/L (12-78) 04/14/17 07:10 Alkaline Phosphatase 81 U/L (45-117) 04/14/17 07:10 Creatine Kinase 91 IU/L (26-192) 04/13/17 11:08 Troponin I 0.02 ng/ml (0.00-0.05) 04/13/17 11:08 Total Protein 7.2 g/dl (6.4-8.2) 04/14/17 07:10 Albumin 2.7 g/dl (3.4-5.0) L 04/14/17 07:10 Lipase 104 U/L (73-393) 04/13/17 11:08 Urine Color Yellow 04/13/17 11:20 Urine Appearance Clear 04/13/17 11:20 Urine pH 6.0 (5.0-8.0) 04/13/17 11:20 Ur Specific [place] 1.010 (1.005-1.025) 04/13/17 11:20 Urine Protein Negative (NEGATIVE) 04/13/17 11:20 Urine Glucose (UA) Negative (NEGATIVE) 04/13/17 11:20 Urine Ketones Negative (NEGATIVE) 04/13/17 11:20 Urine Blood 2+ (NEGATIVE) H 04/13/17 11:20 Urine Nitrite Negative (NEGATIVE) 04/13/17 11:20 Urine Bilirubin Negative (NEGATIVE) 04/13/17 11:20 Urine Urobilinogen Negative mg/dL (0.2-1.0) 04/13/17 11:20 Urine RBC 1 /hpf (0-3) 04/13/17 11:20 Urine WBC 1 /hpf (3-5) 04/13/17 11:20 Ur Epithelial Cells Rare /hpf (FEW) 04/13/17 11:20 Urine Mucus Rare 04/13/17 11:20 ecg 04/13/17: sr, nl intervals, no ischemic changes cxr: clear lungs echo 04/2013: nl lv/rv, no sig valve path mibi 04/2013: mod septal ischemia per report a/p: 71 f hx copd, htn, hld, dementia, possible cad (+mibi) here with epigastric pain/nausea for 1 week. epigastric pain: -no suggestion of cardiac etiology -no signs acs -GI eval pending htn: -cont home meds hld: -cont statin possible cad: -prior mibi 2012 reported ischemia and has been managed medically -normal lvef, no anginal sxs -cont statin, bb, randall. consider asa 81.
[2017-04-14] MEDS: morphine SO4 SUSTAINED ACTING 15 MG TABLET.SA PO SCH ×2 (10:49→21:41)
[2017-04-14] MEDS: POTASSIUM CHLORIDE TABS 10 MEQ TABLET.ER (FP) PO SCH ×2 (10:49→21:41)
[2017-04-14] MEDS: FOLIC ACID 1 MG TABLET (FP) PO SCH (10:49)
[2017-04-14] MEDS: ASCORBIC ACID 500 MG TABLET (FP) PO SCH (10:49)
[2017-04-14] MEDS: predniSONE 5 MG TABLET (UD) PO SCH (10:49)
[2017-04-14] MEDS: GABAPENTIN 300 MG CAPSULE (FP) PO SCH (10:50)
[2017-04-14] MEDS: FUROSEMIDE 20 MG TABLET (FP) PO SCH (10:50)
[2017-04-14] MEDS: CHOLECALCIFEROL (VITAMIN D3) 1,000 UNIT TABLET (FP) PO SCH (10:50)
[2017-04-14] MEDS ORDERED: PT OWN MED DRAWER 7, Y5N ONE (11:23)
[2017-04-14 12:12] LABS: OSMOLALITY,SERUM 273 mosm/kg (278-305)
[2017-04-14 12:47] LABS: CPK 58 IU/L (26-192); TROPONIN I 0.02 ng/ml (0.00-0.05)
[2017-04-14] MEDS: hydrALAZINE HCL 25 MG TABLET (FP) PO SCH (13:04)
[2017-04-14] MEDS: GEMFIBROZIL 600 MG TABLET (FP) PO SCH ×2 (13:13→21:41)
[2017-04-14] MEDS: METOPROLOL TARTRATE 50 MG TABLET (FP) PO SCH (13:14)
--- NOTE | 2017-04-14 14:28 | CON.GI ---
Consult Consult Specialty:: GI For [facility] Referred by:: Dr. Fajardo Reason for Consultation:: Abdominal pain - History of Present Illness Chief Complaint: I had pain in my stomach and I was very nauseaous History of Present Illness: 71F admitted through [facility] ER for evaluation of abdominal pain and nausea. She states being in her usual state of health up until about a week ago when her symptoms began. She describes the pain as mid abdomen, occurring constantly throughout the day, not worsened by meals, non radiating and not associated with change in bowel habits including diarrhea or constipation. There has been no vomiting with the associated nausea and she denies dysphagia. Positional changes seem to worsen her abdominal pain. She has had 2 upper endoscopies in the past with Dr. Sage, the last being in [address] Sage's notes, that revealed a hiatal hernia. She also underwent colonoscopy with Dr. Sage in 2010 that revealed severe diverticulosis and led to the removal of hyperplastic polyps. She had an upper GI series 12/02 revealing a small hiatal hernia and CT scan of the abdomen 11/02 revealing diverticulosis, infrarenal AAA and cystic lesions in the spleen. Of note she had a cystic splenic lesions in the spleen from CT scan in 2009. Labs reveal her to be hyponatremic. She is on an extensive medication regimen. She denies any OTC meds and takes PO opiate analgesia regularly. 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 THR w/ revision) Additional Surgical History: d&c, laser surgery b/l eyes, - Alcohol/Substance Use Hx Alcohol Use: No - Smoking History Smoking history: Current every day smoker Have you smoked in the past 12 months: No Aproximately how many cigarettes per day: 20 - Social History ADL: Family Assistance Place of : [facility] History of Recent Travel: No Home Medications - Allergies Allergies/Adverse Reactions: Allergies Allergy/AdvReac Type Severity Reaction Status Date / Time Sulfa (Sulfonamide Allergy Hives Verified 04/13/17 09:56 Antibiotics) dipyridamole AdvReac Mild headache Verified 04/13/17 09:56 [From Persantine] indomethacin [From Indocin] AdvReac Mild headache Verified 04/13/17 09:56 - Home Medications Home Medications: Ambulatory Orders Amlodipine Besylate [Norvasc -] 5 mg PO HS 10/26/16 Ascorbate Calcium [Vitamin C] 500 mg PO DAILY 10/26/16 Bupropion HCl [Bupropion HCl Sr] 150 mg PO DAILY 10/26/16 Cholecalciferol (Vitamin D3) [Vitamin D3 -] 2,000 unit PO DAILY 10/26/16 Enalapril Maleate [Vasotec] 20 mg PO HS 10/26/16 Folic Acid - 1 mg PO DAILY 10/26/16 Furosemide [Lasix -] 20 mg PO MOWEFR 10/26/16 Gabapentin [Neurontin] 600 mg PO DAILY 10/26/16 Hydralazine HCl [Apresoline -] 25 mg PO DAILY 10/26/16 Hydralazine HCl [Apresoline -] 50 mg PO HS 10/26/16 Immun Glob G(IgG)/Gly/Iga Ov50 [Gammagard Liquid 10% Vial] 40 ml IJ ASDIR Levothyroxine [Synthroid -] 25 mcg PO DAILY 10/26/16 Lutein 40 mg PO DAILY 10/26/16 Methotrexate [Mexate -] 20 mg PO Q7D 10/26/16 Metoprolol Tartrate [Lopressor -] 50 mg PO DAILY 10/26/16 Metoprolol Tartrate [Lopressor -] 75 mg PO HS 10/26/16 Mirtazapine 15 mg PO DAILY 10/26/16 Potassium Chloride [Klor-Con 10] 10 meq PO BID 10/26/16 Prednisone [Deltasone -] 5 mg PO DAILY 10/26/16 Simvastatin 40 mg PO DAILY 10/26/16 Gemfibrozil 600 mg PO BID 04/13/17 Morphine *Sr* [Ms Contin -] 15 mg PO Q12H 04/13/17 Ranitidine [Zantac -] 300 mg PO DAILY 09/26/17 Family Disease History - Family Disease History Family Disease History: Other: Father (: lung cancer), Mother (: pna/dm) Other Family History: 3 siblings, 1 bro with gallstones, 1 lung ca, 1 nephew w/ colon ca, 3 children 1 w/ DM I, 1 w/ sle Review of Systems - Review of Systems Constitutional: reports: Loss of Appetite, Weakness. denies: Chills, Unintentional Wgt. Loss Cardiovascular: reports: Edema (b/l feet). denies: Chest Pain Respiratory: denies: Cough, SOB Gastrointestinal: reports: Abdominal Pain, Nausea. denies: Constipation, Diarrhea, Dysphagia, Rectal Bleeding, Vomiting, Vomiting Blood Genitourinary: denies: Dysuria Physical Exam-GI Vital Signs: Vital Signs Temperature 98 F 04/14/17 08:25 Pulse Rate 60 04/14/17 08:25 Respiratory Rate 18 04/14/17 08:25 Blood Pressure 110/46 04/14/17 08:25 O2 Sat by Pulse Oximetry (%) 93 L 04/14/17 09:00 Constitutional: Yes: Calm Eyes: No: Sclera Icterus Cardiovascular: Yes: Regular Rate and Rhythm. No: Murmur Respiratory: Yes: CTA Bilaterally Gastrointestinal Inspection: Yes: Scars (pelvic) ...Auscultate: Yes: Normoactive Bowel Sounds ...Palpate: Yes: Tenderness (Mild TTP mid abdomen just cephalad to umbilicus). No: Guarding, Hepatomegaly, Splenomegaly, Tenderness, Rebound ...Percussion: No: Tympanitic ...Rectal Exam: Yes: Guaiac Negative (No masses, no external lesions) Edema: Yes (trace pedal b/l) Neurological: Yes: Alert, Oriented Labs: CBC, BMP 04/14/17 07:10 04/14/17 07:10 Hepatic Panel Total Bilirubin 0.6 mg/dL (0.2-1.0) D 04/14/17 07:10 AST 28 U/L (15-37) D 04/14/17 07:10 ALT 13 U/L (12-78) 04/14/17 07:10 Alkaline Phosphatase 81 U/L (45-117) 04/14/17 07:10 Albumin 2.7 g/dl (3.4-5.0) L 04/14/17 07:10 Imaging - Results Cat Scan: Report Reviewed Ultrasound: Report Reviewed Problem List - Problems (1) Abdominal pain Assessment/Plan: Pain atypical of PUD / symptomatic gallstone disease given its constant nature, positional component and lack of pre-post prandial symptomatology For initial further evaluation advised the following: UGIS MRI/MRCP af abdomen to assess CT scan findings of prominent biliary tract Consider streamlining home medication regimen as feasible to see if any medications are contributing Evaluation / correction of hyponatremia per primary team PPI for now Will need continued GI outpatient evaluation with Dr. Sage Code(s): R10.9 - UNSPECIFIED ABDOMINAL PAIN Qualifiers: Abdominal location: upper abdomen, unspecified Qualified Code(s): R10.10 - Upper abdominal pain, unspecified
[2017-04-14] MEDS: hydrALAZINE HCL 50 MG TABLET (FP) PO SCH (21:41)
[2017-04-14] MEDS: amLODIPine BESYLATE 5 MG TABLET (FP) PO SCH (21:41)
[2017-04-14] MEDS: MIRTAZAPINE 15 MG TABLET (FP) PO SCH (21:41)
[2017-04-14] MEDS: ATORVASTATIN CA 20 MG TABLET (FP) PO SCH (21:41)
[2017-04-15] MEDS: LEVOTHYROXINE NA 25 MCG TABLET (FP) PO SCH (06:20)
[2017-04-15] MEDS: PANTOPRAZOLE 20 MG TABLET (FP) PO SCH (10:03)
[2017-04-15] MEDS: hydrALAZINE HCL 25 MG TABLET (FP) PO SCH (10:03)
[2017-04-15] MEDS: ASCORBIC ACID 500 MG TABLET (FP) PO SCH (10:03)
[2017-04-15] MEDS: GABAPENTIN 300 MG CAPSULE (FP) PO SCH (10:03)
[2017-04-15] MEDS: METOPROLOL TARTRATE 50 MG TABLET (FP) PO SCH (10:04)
[2017-04-15] MEDS: POTASSIUM CHLORIDE TABS 10 MEQ TABLET.ER (FP) PO SCH ×2 (10:04→22:29)
[2017-04-15] MEDS: FOLIC ACID 1 MG TABLET (FP) PO SCH (10:04)
[2017-04-15] MEDS: predniSONE 5 MG TABLET (UD) PO SCH (10:04)
[2017-04-15] MEDS: CHOLECALCIFEROL (VITAMIN D3) 1,000 UNIT TABLET (FP) PO SCH (10:04)
[2017-04-15] MEDS: morphine SO4 SUSTAINED ACTING 15 MG TABLET.SA PO SCH ×2 (10:09→22:31)
[2017-04-15] MEDS: GEMFIBROZIL 600 MG TABLET (FP) PO SCH ×2 (10:12→22:32)
--- NOTE | 2017-04-15 10:38 | PN ---
Progress Note, Physician Chief Complaint: in chair comfortable - Current Medication List Current Medications: Active Medications Amlodipine Besylate (Norvasc -) 5 mg PO HS [facility] Last Admin: 04/14/17 21:41 Dose: 5 mg Ascorbic Acid (Vitamin C -) 500 mg PO DAILY [facility] Last Admin: 04/15/17 10:03 Dose: 500 mg Atorvastatin Calcium (Lipitor -) 20 mg PO HS [facility] Last Admin: 04/14/17 21:41 Dose: 20 mg Bupropion HCl (Wellbutrin Xl -) 150 mg PO DAILY [facility] Last Admin: 04/15/17 10:03 Dose: 150 mg Cholecalciferol (Vitamin D3 -) 2,000 unit PO DAILY [facility] Last Admin: 04/15/17 10:04 Dose: 2,000 unit Diphenhydramine HCl (Benadryl Injection -) 25 mg IVPB Q6H PRN PRN Reason: FOR ITCHING Last Admin: 04/14/17 07:02 Dose: 25 mg Enalapril Maleate (Vasotec -) 20 mg PO [facility] Last Admin: 04/13/17 23:38 Dose: Not Given Folic Acid (Folic Acid -) 1 mg PO DAILY [facility] Last Admin: 04/15/17 10:04 Dose: 1 mg Furosemide (Lasix -) 20 mg PO MoWeFr@1000 [facility] Last Admin: 04/14/17 10:50 Dose: 20 mg Gabapentin (Neurontin -) 600 mg PO DAILY [facility] Last Admin: 04/15/17 10:03 Dose: 600 mg Gemfibrozil (Lopid -) 600 mg PO BID [facility] Last Admin: 04/15/17 10:12 Dose: 600 mg Hydralazine HCl (Apresoline -) 50 mg PO [facility] Last Admin: 04/14/17 21:41 Dose: 50 mg Hydralazine HCl (Apresoline -) 25 mg PO DAILY [facility] Last Admin: 04/15/17 10:03 Dose: 25 mg Levothyroxine Sodium (Synthroid -) 25 mcg PO ACBK [facility] Last Admin: 04/15/17 06:20 Dose: Not Given Lorazepam (Ativan -) 1 mg PO ONCE ONE Stop: 04/15/17 07:16 Methotrexate (Mexate -) 20 mg PO Tu@1000 [facility] Last Admin: 04/13/17 20:29 Dose: Not Given Metoprolol Tartrate (Lopressor -) 75 mg PO HS [facility] Last Admin: 04/13/17 23:38 Dose: Not Given Metoprolol Tartrate (Lopressor -) 50 mg PO DAILY [facility] Last Admin: 04/15/17 10:04 Dose: 50 mg Mirtazapine (Remeron -) 15 mg PO HS [facility] Last Admin: 04/14/17 21:41 Dose: 15 mg Morphine Sulfate (Ms Contin -) 15 mg PO BID [facility] Last Admin: 04/15/17 10:09 Dose: 15 mg Ondansetron HCl (Zofran Injection) 4 mg IVPB Q8H PRN PRN Reason: NAUSEA Last Admin: 04/14/17 20:40 Dose: 4 mg Oxycodone HCl (Roxicodone -) 5 mg PO Q6H PRN PRN Reason: PAIN Last Admin: 04/14/17 20:26 Dose: 5 mg Pantoprazole Sodium (Protonix -) 20 mg PO DAILY [facility] Last Admin: 04/15/17 10:03 Dose: 20 mg Potassium Chloride (K-Dur -) 10 meq PO BID [facility] Last Admin: 04/15/17 10:04 Dose: 10 meq Prednisone (Deltasone -) 5 mg PO DAILY [facility] Last Admin: 04/15/17 10:04 Dose: 5 mg - Objective Vital Signs: Vital Signs Temperature 97.3 F L 04/15/17 09:57 Pulse Rate 71 04/15/17 09:57 Respiratory Rate 18 04/15/17 09:57 Blood Pressure 134/95 04/15/17 09:57 O2 Sat by Pulse Oximetry (%) 94 L 04/14/17 21:00 Constitutional: Yes: Calm Neck: Yes: Trachea Midline Cardiovascular: Yes: Regular Rate and Rhythm, S1, S2 Respiratory: Yes: CTA Bilaterally Gastrointestinal: Yes: Normal Bowel Sounds, Soft Edema: No Neurological: Yes: Alert, Oriented Labs: CBC, BMP 04/14/17 07:10 04/14/17 07:10 Problem List - Problems (1) Epigastric abdominal pain Assessment/Plan: going down for UGIS and MRCP Code(s): R10.13 - EPIGASTRIC PAIN (2) CAD (coronary artery disease) Assessment/Plan: BB,asa, ACEI, hydralazine Code(s): I25.10 - ATHSCL HEART DISEASE OF [place] CORONARY ARTERY W/O ANG PCTRS (3) Hyperlipidemia Assessment/Plan: check lipid profile and continue statin and gemfibrozil for now Code(s): E78.5 - HYPERLIPIDEMIA, UNSPECIFIED (4) Decreased appetite Assessment/Plan: remeron, ensure Code(s): R63.0 - ANOREXIA (5) Hyponatremia Assessment/Plan: na is better today 133 Code(s): E87.1 - HYPO-OSMOLALITY AND HYPONATREMIA (6) Rheumatoid arthritis Assessment/Plan: mtx and prednisone Code(s): M06.9 - RHEUMATOID ARTHRITIS, UNSPECIFIED (7) Depression Assessment/Plan: wellbutrin Code(s): F32.9 - MAJOR DEPRESSIVE DISORDER, SINGLE EPISODE, UNSPECIFIED
--- NOTE | 2017-04-15 14:08 | PN ---
Progress Note (short form) - Note Progress Note: spoke to daughter in detail about patient [phone] patient went down for MRCP but was too claustrophobic despite sedative can only do open MRI based on daughter her mother the patient has been nausesous for last few months and family wants EGD to be done in hospital during this admission especially since she smokes placed a call to dr root awaiting call back to explain situation hyponatremia: renal eval Problem List - Problems (1) Epigastric abdominal pain Code(s): R10.13 - EPIGASTRIC PAIN (2) CAD (coronary artery disease) Code(s): I25.10 - ATHSCL HEART DISEASE OF [place] CORONARY ARTERY W/O ANG PCTRS (3) Hyperlipidemia Code(s): E78.5 - HYPERLIPIDEMIA, UNSPECIFIED (4) Decreased appetite Code(s): R63.0 - ANOREXIA (5) Hyponatremia Code(s): E87.1 - HYPO-OSMOLALITY AND HYPONATREMIA (6) Rheumatoid arthritis Code(s): M06.9 - RHEUMATOID ARTHRITIS, UNSPECIFIED (7) Depression Code(s): F32.9 - MAJOR DEPRESSIVE DISORDER, SINGLE EPISODE, UNSPECIFIED
[2017-04-15] MEDS: oxyCODONE HCL 5 MG TABLET PO PRN (14:18)
--- NOTE | 2017-04-15 15:18 | PN ---
GI Progress Note Subjective: Ms. Mccain states abdominal alex improved as is nausea She believes that she "ate about 1/3 of her food, mainly because it didn't taste very good" No vomiting reported and nausea is "a little better". She denies associated headache or change in vision She was unable to have MRCP performed due to severe claustrophobia despite Ms. Mccain being medicated UGIS was peformed but not yet read - Objective Vital Signs: Vital Signs Temperature 97.3 F L 04/15/17 09:57 Pulse Rate 71 04/15/17 09:57 Respiratory Rate 18 04/15/17 09:57 Blood Pressure 134/95 04/15/17 09:57 O2 Sat by Pulse Oximetry (%) 94 L 04/14/17 21:00 Constitutional: Calm Eyes: No: Sclera Icterus Cardiovascular: Yes: Regular Rate and Rhythm Respiratory: Yes: CTA Bilaterally ...Auscultate: Yes: Normoactive Bowel Sounds ...Palpate: Yes: Soft. No: Hepatomegaly, Splenomegaly, Tenderness Neurological: Yes: Alert Labs: CBC, BMP 04/14/17 07:10 04/14/17 07:10 Problem List - Problems (1) Abdominal pain Assessment/Plan: Seems improved as the nausea MRCP could not be performed given Ms. Mccain's severe claustrophobia. This was to evaluate the dilated common hepatic duct (seen on CT scan and not US) the need to be followed up when she sees Dr. Sage as an outpatient. Her liver chemistries are not reflective of an obstructive process. Await UGIS. Pending results possible EGD tomorrow Evaluation of hyponatremia per primary team. May be impacting her nausea as well Medication elimination as feasible by PMD to see if polypharmacy including opiate analgesia contributing to nausea. Code(s): R10.9 - UNSPECIFIED ABDOMINAL PAIN Qualifiers: Abdominal location: upper abdomen, unspecified Qualified Code(s): R10.10 - Upper abdominal pain, unspecified
[2017-04-15] MEDS ORDERED: PT OWN MED DRAWER 7, Y5N ONE ×2 (19:43→22:22)
[2017-04-15 21:18] LABS: ANION GAP 8 (8-16); CALCIUM 8.7 mg/dL (8.5-10.1); CO2 31 mmol/L (21-32); CREATININE 0.9 mg/dL (0.55-1.02); GLUCOSE,RANDOM 88 mg/dL (74-106)
[2017-04-15 21:27] LABS: URIC ACID 3.8 mg/dL (2.6-7.2)
[2017-04-15] MEDS: ATORVASTATIN CA 20 MG TABLET (FP) PO SCH (22:29)
[2017-04-15] MEDS: amLODIPine BESYLATE 5 MG TABLET (FP) PO SCH (22:30)
[2017-04-15] MEDS: hydrALAZINE HCL 50 MG TABLET (FP) PO SCH (22:30)
[2017-04-15] MEDS: MIRTAZAPINE 15 MG TABLET (FP) PO SCH (22:31)
[2017-04-15] MEDS: SODIUM CHLORIDE 1 GM TABLET PO SCH (22:32)
[2017-04-16] MEDS: LEVOTHYROXINE NA 25 MCG TABLET (FP) PO SCH (06:50)
[2017-04-16 08:16] LABS: BASOPHIL 1.3 % (0-2.0); EOSINOPHIL 3.3 % (0-4.5); MCH 31.5 pg (25.7-33.7); MCHC 33.4 g/dl (32.0-36.0); MEAN CELL VOLUME 94.2 fl (80-96); MEAN PLT VOLUME 7.2 fl (7.5-11.1); NEUTROPHILS 24.5 % (42.8-82.8); PLATELET COUNT 186 K/MM3 (134-434); RDW 17.2 % (11.6-15.6); WHITE BLOOD COUNT 3.6 K/mm3 (4.0-10.0)
[2017-04-16 08:52] LABS: ALBUMIN 2.6 g/dl (3.4-5.0); ANION GAP 5 (8-16); BILIRUBIN,TOTAL 0.4 mg/dL (0.2-1.0); CALCIUM 8.8 mg/dL (8.5-10.1); CHOLESTEROL 99 mg/dL (50-200); CO2 32 mmol/L (21-32); CREATININE 0.7 mg/dL (0.55-1.02); GLUCOSE,RANDOM 83 mg/dL (74-106); SGOT/AST 26 U/L (15-37); SGPT/ALT 10 U/L (12-78); TOT PROT 7.1 g/dl (6.4-8.2)
[2017-04-16 09:01] LABS: ALK PHOS 87 U/L (45-117); THYROID STIMULATING HORMONE 1.36 uIU/ml (0.358-3.74)
[2017-04-16] MEDS ORDERED: PT OWN MED DRAWER 7, Y5N ONE (09:47)
[2017-04-16] MEDS: ASCORBIC ACID 500 MG TABLET (FP) PO SCH (09:50)
[2017-04-16] MEDS: FOLIC ACID 1 MG TABLET (FP) PO SCH (09:50)
[2017-04-16] MEDS: predniSONE 5 MG TABLET (UD) PO SCH (09:50)
[2017-04-16] MEDS: METOPROLOL TARTRATE 50 MG TABLET (FP) PO SCH (09:50)
[2017-04-16] MEDS: GABAPENTIN 300 MG CAPSULE (FP) PO SCH (09:50)
[2017-04-16] MEDS: POTASSIUM CHLORIDE TABS 10 MEQ TABLET.ER (FP) PO SCH ×2 (09:50→21:14)
[2017-04-16] MEDS: PANTOPRAZOLE 20 MG TABLET (FP) PO SCH (09:50)
[2017-04-16] MEDS: FUROSEMIDE 20 MG TABLET (FP) PO SCH (09:50)
[2017-04-16] MEDS: CHOLECALCIFEROL (VITAMIN D3) 1,000 UNIT TABLET (FP) PO SCH (09:50)
[2017-04-16] MEDS: GEMFIBROZIL 600 MG TABLET (FP) PO SCH ×2 (09:51→21:14)
[2017-04-16] MEDS: hydrALAZINE HCL 25 MG TABLET (FP) PO SCH (09:51)
[2017-04-16] MEDS: morphine SO4 SUSTAINED ACTING 15 MG TABLET.SA PO SCH (09:51)
[2017-04-16] MEDS: SODIUM CHLORIDE 1 GM TABLET PO SCH ×2 (09:52→21:15)
--- NOTE | 2017-04-16 10:16 | PN ---
Progress Note, Physician Chief Complaint: currently NPO for possible EGD UGS report pending patient cannot do MRI/MRCP given severe claustrophobia History of Present Illness: says her nausaa better today still has mild abdominal pain - Current Medication List Current Medications: Active Medications Amlodipine Besylate (Norvasc -) 5 mg PO HS [facility] [place] Last Admin: 04/15/17 22:30 Dose: 5 mg Ascorbic Acid (Vitamin C -) 500 mg PO DAILY [facility] [place] Last Admin: 04/16/17 09:50 Dose: 500 mg Atorvastatin Calcium (Lipitor -) 20 mg PO HS [facility] [place] Last Admin: 04/15/17 22:29 Dose: 20 mg Bupropion HCl (Wellbutrin Xl -) 150 mg PO DAILY [facility] [place] Last Admin: 04/16/17 09:50 Dose: 150 mg Cholecalciferol (Vitamin D3 -) 2,000 unit PO DAILY [facility] [place] Last Admin: 04/16/17 09:50 Dose: 2,000 unit Diphenhydramine HCl (Benadryl Injection -) 25 mg IVPB Q6H PRN PRN Reason: FOR ITCHING Last Admin: 04/14/17 07:02 Dose: 25 mg Enalapril Maleate (Vasotec -) 20 mg PO HS [facility] [place] Last Admin: 04/13/17 23:38 Dose: Not Given Folic Acid (Folic Acid -) 1 mg PO DAILY [facility] [place] Last Admin: 04/16/17 09:50 Dose: 1 mg Furosemide (Lasix -) 20 mg PO MoWeFr@1000 [facility] [place] Last Admin: 04/16/17 09:50 Dose: 20 mg Gabapentin (Neurontin -) 600 mg PO DAILY [facility] [place] Last Admin: 04/16/17 09:50 Dose: 600 mg Gemfibrozil (Lopid -) 600 mg PO BID [facility] [place] Last Admin: 04/16/17 09:51 Dose: 600 mg Hydralazine HCl (Apresoline -) 50 mg PO HS [facility] [place] Last Admin: 04/15/17 22:30 Dose: 50 mg Hydralazine HCl (Apresoline -) 25 mg PO DAILY [facility] [place] Last Admin: 04/16/17 09:51 Dose: 25 mg Levothyroxine Sodium (Synthroid -) 25 mcg PO ACBK [facility] [place] Last Admin: 04/16/17 06:50 Dose: 25 mcg Lorazepam (Ativan -) 1 mg PO ONCE ONE Stop: 04/15/17 07:16 Methotrexate (Mexate -) 20 mg PO Tu@1000 [facility] [place] Last Admin: 04/13/17 20:29 Dose: Not Given Metoprolol Tartrate (Lopressor -) 75 mg PO HS [facility] [place] Last Admin: 04/13/17 23:38 Dose: Not Given Metoprolol Tartrate (Lopressor -) 50 mg PO DAILY [facility] [place] Last Admin: 04/16/17 09:50 Dose: 50 mg Mirtazapine (Remeron -) 15 mg PO [facility] Last Admin: 04/15/17 22:31 Dose: 15 mg Ondansetron HCl (Zofran Injection) 4 mg IVPB Q8H PRN PRN Reason: NAUSEA Last Admin: 04/14/17 20:40 Dose: 4 mg Oxycodone HCl (Roxicodone -) 5 mg PO Q6H PRN PRN Reason: PAIN Last Admin: 04/15/17 14:18 Dose: 5 mg Pantoprazole Sodium (Protonix -) 20 mg PO DAILY [facility] [place] Last Admin: 04/16/17 09:50 Dose: 20 mg Potassium Chloride (K-Dur -) 10 meq PO BID [facility] [place] Last Admin: 04/16/17 09:50 Dose: 10 meq Prednisone (Deltasone -) 5 mg PO DAILY [facility] [place] Last Admin: 04/16/17 09:50 Dose: 5 mg Sodium Chloride (Sodium Chloride Tablet -) 1 gm PO BID [facility] [place] Last Admin: 04/16/17 09:52 Dose: 1 gm - Objective Vital Signs: Vital Signs Temperature 98.2 F 04/16/17 06:00 Pulse Rate 68 04/16/17 06:00 Respiratory Rate 18 04/16/17 06:00 Blood Pressure 145/69 04/16/17 06:00 O2 Sat by Pulse Oximetry (%) 97 04/15/17 21:00 Constitutional: Yes: Calm Cardiovascular: Yes: Regular Rate and Rhythm, S1, S2 Respiratory: Yes: CTA Bilaterally Gastrointestinal: Yes: Normal Bowel Sounds, Soft Edema: No Neurological: Yes: Alert Labs: CBC, BMP 04/16/17 07:00 04/16/17 07:00 Problem List - Problems (1) Epigastric abdominal pain Assessment/Plan: NPO for EGD today patient has been on morphine for quite sometime at home Code(s): R10.13 - EPIGASTRIC PAIN (2) CAD (coronary artery disease) Assessment/Plan: BB,asa, ACEI, hydralazine Code(s): I25.10 - ATHSCL HEART DISEASE OF [place] CORONARY ARTERY W/O ANG PCTRS (3) Hyperlipidemia Assessment/Plan: lipid profile noted and continue statin and gemfibrozil for now Code(s): E78.5 - HYPERLIPIDEMIA, UNSPECIFIED (4) Decreased appetite Assessment/Plan: remeron, ensure Code(s): R63.0 - ANOREXIA (5) Hyponatremia Assessment/Plan: na is better today 133 now 134 Code(s): E87.1 - HYPO-OSMOLALITY AND HYPONATREMIA (6) Rheumatoid arthritis Assessment/Plan: mtx and prednisone Code(s): M06.9 - RHEUMATOID ARTHRITIS, UNSPECIFIED (7) Depression Assessment/Plan: wellbutrin Code(s): F32.9 - MAJOR DEPRESSIVE DISORDER, SINGLE EPISODE, UNSPECIFIED Assessment/Plan need outpatient MRCP and FU with dr akanksha goodrich results of UGI series possible EGD today currently NPO
--- NOTE | 2017-04-16 12:17 | CON.NEP ---
Consult Consult Specialty:: Nephrology Referred by:: Dr. Fajardo Reason for Consultation:: Hyponatremia - History of Present Illness Chief Complaint: Epigastric Pain History of Present Illness: This is a 71 year old woman with PMhx of Hypertension, Asthma, COPD, Peripheral Neuropathy, TIA, RA, Cutaneous Vasculitis who presented from home with complaints of epigastric pain and N/V and found to have hyponatremia. Pt denies any history of hyponatremia. Her symptoms have been on going for 2 weeks. Denies excessive water/fluid intake. No diuretics being used at home. No diarrhea. Reports being able to tolerate oral diet. No confusion, lethargy, weakness, seizures. 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 THR w/ revision) Additional Surgical History: d&c, laser surgery b/l eyes, - Alcohol/Substance Use Hx Alcohol Use: No - Smoking History Smoking history: Current every day smoker Have you smoked in the past 12 months: No Aproximately how many cigarettes per day: 20 - Social History ADL: Family Assistance History of Recent Travel: No Home Medications - Allergies Allergies/Adverse Reactions: Allergies Allergy/AdvReac Type Severity Reaction Status Date / Time Sulfa (Sulfonamide Allergy Hives Verified 04/13/17 09:56 Antibiotics) dipyridamole AdvReac Mild headache Verified 04/13/17 09:56 [From Persantine] indomethacin [From Indocin] AdvReac Mild headache Verified 04/13/17 09:56 - Home Medications Home Medications: Ambulatory Orders Amlodipine Besylate [Norvasc -] 5 mg PO HS 10/26/16 Ascorbate Calcium [Vitamin C] 500 mg PO DAILY 10/26/16 Bupropion HCl [Bupropion HCl Sr] 150 mg PO DAILY 10/26/16 Cholecalciferol (Vitamin D3) [Vitamin D3 -] 2,000 unit PO DAILY 10/26/16 Enalapril Maleate [Vasotec] 20 mg PO HS 10/26/16 Folic Acid - 1 mg PO DAILY 10/26/16 Furosemide [Lasix -] 20 mg PO MOWEFR 10/26/16 Gabapentin [Neurontin] 600 mg PO DAILY 10/26/16 Hydralazine HCl [Apresoline -] 25 mg PO DAILY 10/26/16 Hydralazine HCl [Apresoline -] 50 mg PO HS 10/26/16 Immun Glob G(IgG)/Gly/Iga Ov50 [Gammagard Liquid 10% Vial] 40 ml IJ ASDIR Levothyroxine [Synthroid -] 25 mcg PO DAILY 10/26/16 Lutein 40 mg PO DAILY 10/26/16 Methotrexate [Mexate -] 20 mg PO Q7D 10/26/16 Metoprolol Tartrate [Lopressor -] 50 mg PO DAILY 10/26/16 Metoprolol Tartrate [Lopressor -] 75 mg PO HS 10/26/16 Mirtazapine 15 mg PO DAILY 10/26/16 Potassium Chloride [Klor-Con 10] 10 meq PO BID 10/26/16 Prednisone [Deltasone -] 5 mg PO DAILY 10/26/16 Simvastatin 40 mg PO DAILY 10/26/16 Gemfibrozil 600 mg PO BID 04/13/17 Morphine *Sr* [Ms Contin -] 15 mg PO Q12H 04/13/17 Ranitidine [Zantac -] 300 mg PO DAILY 04/13/17 Family Disease History - Family Disease History Family Disease History: Other: Father (: lung cancer), Mother (: pna/dm) Other Family History: 3 siblings, 1 bro with gallstones, 1 lung ca, 1 nephew w/ colon ca, 3 children 1 w/ DM I, 1 w/ sle Review of Systems - Review of Systems Constitutional: reports: No Symptoms Neck: reports: No Symptoms Cardiovascular: reports: No Symptoms Respiratory: reports: No Symptoms Gastrointestinal: reports: Abdominal Pain, Nausea, Vomiting. denies: Diarrhea, Vomiting Blood Genitourinary: reports: No Symptoms Integumentary: reports: No Symptoms Neurological: reports: No Symptoms Nephrology Consult - Height Height: 5 ft 6 in - Weight Weight: 136 lb - BMI Body Mass Index (BMI): 21.9 - Lab Results CBC,BMP: CBC, BMP 04/16/17 07:00 04/16/17 07:00 Anion Gap: Anion Gap Anion Gap 5 (8-16) L 04/16/17 07:00 - Imaging Chest X-ray: Report Reviewed - Physical Examination Vital Signs: Vital Signs Temperature 98.2 F 04/16/17 06:00 Pulse Rate 68 04/16/17 06:00 Respiratory Rate 18 04/16/17 06:00 Blood Pressure 145/69 04/16/17 06:00 O2 Sat by Pulse Oximetry (%) 97 04/15/17 21:00 Constitutional: Yes: No Distress, Calm Eyes: Yes: Conjunctiva Clear HENT: Yes: Atraumatic, Normocephalic Neck: Yes: Supple Cardiovascular: Yes: Regular Rate and Rhythm Respiratory: Yes: Regular, CTA Bilaterally Gastrointestinal: Yes: Normal Bowel Sounds, Soft Edema: No Neurological: Yes: Alert, Oriented Problem List - Problems (1) Epigastric abdominal pain Code(s): R10.13 - EPIGASTRIC PAIN (2) Hyponatremia Code(s): E87.1 - HYPO-OSMOLALITY AND HYPONATREMIA (3) Hypertension Code(s): I10 - ESSENTIAL (PRIMARY) HYPERTENSION Assessment/Plan 71 year old woman with PMhx of Hypertension, Asthma, COPD, Peripheral Neuropathy, TIA, RA, Cutaneous Vasculitis who presented from home with complaints of epigastric pain and N/V and found to have hyponatremia. #Hyponatremia with evidence of excessive ADH Urine studies show a high urine Na, High Urine OSM, Normal serum uric acid, low serum osmolarity Studies are indicative of excessive ADH release in the setting of hypoosmolar hyponatremia likely related to N/V triggering ADH release but cannot r/o SAIDH Serum na improved with salt tabs continue NaCl 1g BID for now free water restriction of 1L daily if Na continues to be low despite resolution of N/V will need to r/o lung pathology as cause of SIADH with a CT b/c of smoking history Trend Na daily #Epigastric Pain wit N/V GI following possible EGD #Hypertension Bp is at [facility] presently continue Norvasc and Metoprolol D/c Lasix Thank you Will follow Kye Church Do
[2017-04-16] MEDS ORDERED: PROPOFOL 20 ML ONE ×2 (15:12)
--- NOTE | 2017-04-16 16:05 | CONSULT ---
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 THR w/ revision) Additional Surgical History: d&c, laser surgery b/l eyes, - Alcohol/Substance Use Hx Alcohol Use: No - Smoking History Smoking history: Current every day smoker Have you smoked in the past 12 months: No Aproximately how many cigarettes per day: 20 - Social History ADL: Family Assistance History of Recent Travel: No Home Medications - Allergies Allergies/Adverse Reactions: Allergies Allergy/AdvReac Type Severity Reaction Status Date / Time Sulfa (Sulfonamide Allergy Hives Verified 04/13/17 09:56 Antibiotics) dipyridamole AdvReac Mild headache Verified 04/13/17 09:56 [From Persantine] indomethacin [From Indocin] AdvReac Mild headache Verified 04/13/17 09:56 - Home Medications Home Medications: Ambulatory Orders Amlodipine Besylate [Norvasc -] 5 mg PO HS 10/26/16 Ascorbate Calcium [Vitamin C] 500 mg PO DAILY 10/26/16 Bupropion HCl [Bupropion HCl Sr] 150 mg PO DAILY 10/26/16 Cholecalciferol (Vitamin D3) [Vitamin D3 -] 2,000 unit PO DAILY 10/26/16 Enalapril Maleate [Vasotec] 20 mg PO HS 10/26/16 Folic Acid - 1 mg PO DAILY 10/26/16 Furosemide [Lasix -] 20 mg PO MOWEFR 10/26/16 Gabapentin [Neurontin] 600 mg PO DAILY 10/26/16 Hydralazine HCl [Apresoline -] 25 mg PO DAILY 10/26/16 Hydralazine HCl [Apresoline -] 50 mg PO HS 10/26/16 Immun Glob G(IgG)/Gly/Iga Ov50 [Gammagard Liquid 10% Vial] 40 ml IJ ASDIR Levothyroxine [Synthroid -] 25 mcg PO DAILY 10/26/16 Lutein 40 mg PO DAILY 10/26/16 Methotrexate [Mexate -] 20 mg PO Q7D 10/26/16 Metoprolol Tartrate [Lopressor -] 50 mg PO DAILY 10/26/16 Metoprolol Tartrate [Lopressor -] 75 mg PO HS 10/26/16 Mirtazapine 15 mg PO DAILY 10/26/16 Potassium Chloride [Klor-Con 10] 10 meq PO BID 10/26/16 Prednisone [Deltasone -] 5 mg PO DAILY 10/26/16 Simvastatin 40 mg PO DAILY 10/26/16 Gemfibrozil 600 mg PO BID 04/13/17 Morphine *Sr* [Ms Contin -] 15 mg PO Q12H 04/13/17 Ranitidine [Zantac -] 300 mg PO DAILY 04/13/17 Family Disease History - Family Disease History Family Disease History: Other: Father (: lung cancer), Mother (: pna/dm) Other Family History: 3 siblings, 1 bro with gallstones, 1 lung ca, 1 nephew w/ colon ca, 3 children 1 w/ DM I, 1 w/ sle Review of Systems - Review of Systems Constitutional: denies: Chills, Fever Neck: reports: No Symptoms Cardiovascular: denies: Chest Pain Respiratory: denies: Cough Gastrointestinal: reports: Abdominal Pain, Nausea Neurological: denies: Change in LOC Pain Intensity: 3 Physical Exam Vital Signs: Vital Signs Temperature 98.0 F 04/16/17 15:33 Pulse Rate 57 L 04/16/17 15:43 Respiratory Rate 17 04/16/17 15:43 Blood Pressure 95/51 04/16/17 15:43 O2 Sat by Pulse Oximetry (%) 96 04/16/17 15:43 Constitutional: Yes: Calm HENT: Yes: WNL Cardiovascular: Yes: WNL Respiratory: Yes: Regular Gastrointestinal: Yes: Soft, Tenderness (Mild epigastric tenderness). No: Distention, Tenderness, Rebound Neurological: Yes: Alert, Oriented Labs: CBC, BMP 04/16/17 07:00 04/16/17 07:00 Imaging - Results Cat Scan: Report Reviewed, Image Reviewed Ultrasound: Report Reviewed, Image Reviewed Problem List - Problems (1) Cholelithiases Code(s): K80.20 - CALCULUS OF GALLBLADDER W/O CHOLECYSTITIS W/O OBSTRUCTION Qualifiers: Cholelithiasis location: gallbladder Cholecystitis presence: without cholecystitis Biliary obstruction: without biliary obstruction Qualified Code(s): K80.20 - Calculus of gallbladder without cholecystitis without obstruction (2) Epigastric abdominal pain Code(s): R10.13 - EPIGASTRIC PAIN Assessment/Plan 71 female with epigastric abdominal pain GI performing EGD HIDA to further evaluate gallbladder
[2017-04-16] MEDS ORDERED: MAG HYDROX/AL HYDROX/SIMETH 30 ML UNIT-DOSE CUP PO PRN (16:08)
--- NOTE | 2017-04-16 16:08 | PN ---
Progress Note (short form) - Note Progress Note: GI Procedure NOte: Please see EGD report. Gastric body and antrum erosions found likely related to NSAIDs.Will give pantoprazole and antacid. Discussed situation with the patient and Dr Lim.
--- NOTE | 2017-04-16 16:27 | PN ---
Progress Note (short form) - Note Progress Note: d/w dr vale start ppi and pepsid and then dc home in am Problem List - Problems (1) Epigastric abdominal pain Code(s): R10.13 - EPIGASTRIC PAIN (2) CAD (coronary artery disease) Code(s): I25.10 - ATHSCL HEART DISEASE OF [place] CORONARY ARTERY W/O ANG PCTRS (3) Hyperlipidemia Code(s): E78.5 - HYPERLIPIDEMIA, UNSPECIFIED (4) Decreased appetite Code(s): R63.0 - ANOREXIA (5) Hyponatremia Code(s): E87.1 - HYPO-OSMOLALITY AND HYPONATREMIA (6) Rheumatoid arthritis Code(s): M06.9 - RHEUMATOID ARTHRITIS, UNSPECIFIED (7) Depression Code(s): F32.9 - MAJOR DEPRESSIVE DISORDER, SINGLE EPISODE, UNSPECIFIED
--- NOTE | 2017-04-16 16:42 | DS ---
Physical Examination Vital Signs: Vital Signs Temperature 98.0 F 04/16/17 15:33 Pulse Rate 53 L 04/16/17 16:15 Respiratory Rate 20 04/16/17 16:15 Blood Pressure 129/46 04/16/17 16:15 O2 Sat by Pulse Oximetry (%) 97 04/16/17 16:15 Constitutional: Yes: Calm Neck: Yes: Trachea Midline Cardiovascular: Yes: Regular Rate and Rhythm, S1, S2 Respiratory: Yes: CTA Bilaterally Gastrointestinal: Yes: Normal Bowel Sounds, Soft Edema: No Neurological: Yes: Alert, Oriented Labs: CBC, BMP 04/16/17 07:00 04/16/17 07:00 Discharge Summary Reason For Visit: EPIGASTRIC PAIN,DECREASE IN APPETITE Current Active Problems CAD (coronary artery disease) (Acute) Cholelithiases (Acute) Decreased appetite (Acute) Depression (Acute) Epigastric abdominal pain (Acute) Generalized weakness (Acute) Hyperlipidemia (Acute) Hypertension (Acute) Hyponatremia (Acute) Rheumatoid arthritis (Acute) Hospital Course: History of Present Illness: 71-year-old female presents to the emergency room with complaints of intermittent nausea for the past week associated with difficulty taking her medications and eating due to the nausea. Patient also describing cramping burning sensation to epigastric region that does not radiate to her chest or lower abdomen. 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, Peripheral Neuropathy Cardiovascular: Yes: HTN (controlled w/ hydralazine) Pulmonary: Yes: COPD Musculoskeletal: Yes: Other (neuropathy LE) Rheumatology: Yes: Rheumatoid Arthritis, Vasculitis - Smoking History Smoking history: Current every day smoker Have you smoked in the past 12 months: No Aproximately how many cigarettes per day: [address] scan showed cholelithasis splenic cysts and AAA 3.2cm had egd show antral and gastric erosions start pantoprazole and pepcid RA prednisone continue PPI hyponatremia started nacl 1gm bid Condition: Improved - Instructions Referrals: Julian Sage MD [Staff Physician] - Devin Fajardo MD [Primary Care Provider] - 1 Week (to check bmp) Disposition: HOME - Home Medications Comprehensive Discharge Medication List: Ambulatory Orders Amlodipine Besylate [Norvasc -] 5 mg PO HS 10/26/16 Ascorbate Calcium [Vitamin C] 500 mg PO DAILY 10/26/16 Bupropion HCl [Bupropion HCl Sr] 150 mg PO DAILY 10/26/16 Cholecalciferol (Vitamin D3) [Vitamin D3 -] 2,000 unit PO DAILY 10/26/16 Enalapril Maleate [Vasotec] 20 mg PO HS 10/26/16 Folic Acid - 1 mg PO DAILY 10/26/16 Furosemide [Lasix -] 20 mg PO MOWEFR 10/26/16 Gabapentin [Neurontin] 600 mg PO DAILY 10/26/16 Hydralazine HCl [Apresoline -] 25 mg PO DAILY 10/26/16 Hydralazine HCl [Apresoline -] 50 mg PO HS 10/26/16 Immun Glob G(IgG)/Gly/Iga Ov50 [Gammagard Liquid 10% Vial] 40 ml IJ ASDIR Levothyroxine [Synthroid -] 25 mcg PO DAILY 10/26/16 Lutein 40 mg PO DAILY 10/26/16 Methotrexate [Mexate -] 20 mg PO Q7D 10/26/16 Metoprolol Tartrate [Lopressor -] 50 mg PO DAILY 10/26/16 Metoprolol Tartrate [Lopressor -] 75 mg PO HS 10/26/16 Mirtazapine 15 mg PO DAILY 10/26/16 Potassium Chloride [Klor-Con 10] 10 meq PO BID 10/26/16 Prednisone [Deltasone -] 5 mg PO DAILY 10/26/16 Simvastatin 40 mg PO DAILY 10/26/16 Gemfibrozil 600 mg PO BID 04/13/17 Morphine *Sr* [Ms Contin -] 15 mg PO Q12H 04/13/17 Ranitidine [Zantac -] 300 mg PO DAILY 04/13/17
[2017-04-16] MEDS ORDERED: LORazepam 1 MG TABLET PO ONE (18:45)
[2017-04-16] MEDS: oxyCODONE HCL 5 MG TABLET PO PRN (20:26)
[2017-04-16] MEDS: MIRTAZAPINE 15 MG TABLET (FP) PO SCH (21:14)
[2017-04-16] MEDS: hydrALAZINE HCL 50 MG TABLET (FP) PO SCH (21:14)
[2017-04-16] MEDS: amLODIPine BESYLATE 5 MG TABLET (FP) PO SCH (21:15)
[2017-04-16] MEDS: ATORVASTATIN CA 20 MG TABLET (FP) PO SCH (21:15)
[2017-04-17] MEDS: LEVOTHYROXINE NA 25 MCG TABLET (FP) PO SCH ×2 (06:11→08:15)
--- NOTE | 2017-04-17 07:16 | PN ---
Progress Note (short form) - Note Progress Note: Renal follow up for hyponatremia Pt seen and examined at the bedside awake and alert no overnight events s/p EGD yesterday Vital Signs Temperature 98.3 F 04/17/17 04:00 Pulse Rate 69 04/17/17 04:00 Respiratory Rate 18 04/17/17 04:00 Blood Pressure 153/70 04/17/17 04:00 O2 Sat by Pulse Oximetry (%) 94 L 04/16/17 21:00 Intake & Output 04/14/17 04/15/17 04/16/17 04/17/17 23:59 23:59 23:59 23:59 Intake Total 1350 450 540 Balance 1350 450 540 Weight 136 lb NAD, awake and alert RRR CTA soft NT/ND no edema CBC, BMP 04/16/17 07:00 04/16/17 07:00 Current Medications Al Hydroxide/Mg Hydroxide (Mylanta Oral Suspension -) 30 ml PO Q6H PRN PRN Reason: DYSPEPSIA Last Admin: 04/16/17 22:23 Dose: 30 ml Amlodipine Besylate (Norvasc -) 5 mg PO HS [facility] Last Admin: 04/16/17 21:15 Dose: 5 mg Ascorbic Acid (Vitamin C -) 500 mg PO DAILY [facility] Last Admin: 04/16/17 09:50 Dose: 500 mg Atorvastatin Calcium (Lipitor -) 20 mg PO HS [facility] Last Admin: 04/16/17 21:15 Dose: 20 mg Bupropion HCl (Wellbutrin Xl -) 150 mg PO DAILY [facility] Last Admin: 04/16/17 09:50 Dose: 150 mg Cholecalciferol (Vitamin D3 -) 2,000 unit PO DAILY [facility] Last Admin: 04/16/17 09:50 Dose: 2,000 unit Diphenhydramine HCl (Benadryl Injection -) 25 mg IVPB Q6H PRN PRN Reason: FOR ITCHING Last Admin: 04/14/17 07:02 Dose: 25 mg Enalapril Maleate (Vasotec -) 20 mg PO HS [facility] Last Admin: 04/13/17 23:38 Dose: Not Given Folic Acid (Folic Acid -) 1 mg PO DAILY [facility] Last Admin: 04/16/17 09:50 Dose: 1 mg Gabapentin (Neurontin -) 600 mg PO DAILY [facility] Last Admin: 04/16/17 09:50 Dose: 600 mg Gemfibrozil (Lopid -) 600 mg PO BID [facility] Last Admin: 04/16/17 21:14 Dose: 600 mg Hydralazine HCl (Apresoline -) 50 mg PO HS [facility] Last Admin: 04/16/17 21:14 Dose: 50 mg Hydralazine HCl (Apresoline -) 25 mg PO DAILY [facility] Last Admin: 04/16/17 09:51 Dose: 25 mg Levothyroxine Sodium (Synthroid -) 25 mcg PO ACBK [facility] Last Admin: 04/17/17 06:11 Dose: Not Given Methotrexate (Mexate -) 20 mg PO Tu@1000 [facility] Last Admin: 04/13/17 20:29 Dose: Not Given Metoprolol Tartrate (Lopressor -) 75 mg PO HS [facility] Last Admin: 04/13/17 23:38 Dose: Not Given Metoprolol Tartrate (Lopressor -) 50 mg PO DAILY [facility] Last Admin: 04/16/17 09:50 Dose: 50 mg Mirtazapine (Remeron -) 15 mg PO HS [facility] Last Admin: 04/16/17 21:14 Dose: 15 mg Ondansetron HCl (Zofran Injection) 4 mg IVPB Q8H PRN PRN Reason: NAUSEA Last Admin: 04/14/17 20:40 Dose: 4 mg Oxycodone HCl (Roxicodone -) 5 mg PO Q6H PRN PRN Reason: PAIN Last Admin: 04/16/17 20:26 Dose: 5 mg Pantoprazole Sodium (Protonix -) 20 mg PO DAILY [facility] Last Admin: 04/16/17 09:50 Dose: 20 mg Potassium Chloride (K-Dur -) 10 meq PO BID [facility] Last Admin: 04/16/17 21:14 Dose: 10 meq Prednisone (Deltasone -) 5 mg PO DAILY [facility] Last Admin: 04/16/17 09:50 Dose: 5 mg Sodium Chloride (Sodium Chloride Tablet -) 1 gm PO BID [facility] Last Admin: 04/16/17 21:15 Dose: 1 gm 71 year old woman with PMhx of Hypertension, Asthma, COPD, Peripheral Neuropathy, TIA, RA, Cutaneous Vasculitis who presented from home with complaints of epigastric pain and N/V and found to have hyponatremia. #Hyponatremia with evidence of excessive ADH Urine studies show a high urine Na, High Urine OSM, Normal serum uric acid, low serum osmolarity Studies are indicative of excessive ADH release in the setting of hypoosmolar hyponatremia Todays labs pending continue Na salts for now if Na > 140 can d/c salt tabs continue fluid restriction for now if discharged will need outpatient follow up for hyponatremia (if persists will need Head and lung imaging) #Epigastric Pain wit N/V EGD showed erosions likely due to nsaids #Hypertension Bp is at [facility] presently continue Norvasc and Metoprolol D/c Lasix Thank you Will follow Kye Church Do Problem List - Problems (1) Epigastric abdominal pain Code(s): R10.13 - EPIGASTRIC PAIN (2) Hyponatremia Code(s): E87.1 - HYPO-OSMOLALITY AND HYPONATREMIA (3) Hypertension Code(s): I10 - ESSENTIAL (PRIMARY) HYPERTENSION
[2017-04-17 09:00] LABS: ANION GAP 9 (8-16); CALCIUM 8.6 mg/dL (8.5-10.1); CO2 31 mmol/L (21-32); CREATININE 0.5 mg/dL (0.55-1.02); GLUCOSE,RANDOM 82 mg/dL (74-106); MAGNESIUM 1.8 mg/dL (1.8-2.4); PHOSPHOROUS 2.5 mg/dL (2.5-4.9)
[2017-04-17] MEDS ORDERED: PT OWN MED DRAWER 7, Y5N ONE ×2 (09:09→21:05)
[2017-04-17] MEDS: METOPROLOL TARTRATE 50 MG TABLET (FP) PO SCH (09:10)
[2017-04-17] MEDS: GABAPENTIN 300 MG CAPSULE (FP) PO SCH (09:10)
[2017-04-17] MEDS: GEMFIBROZIL 600 MG TABLET (FP) PO SCH ×2 (09:11→22:13)
[2017-04-17] MEDS: SODIUM CHLORIDE 1 GM TABLET PO SCH ×2 (09:11→22:12)
[2017-04-17] MEDS: FOLIC ACID 1 MG TABLET (FP) PO SCH (09:11)
[2017-04-17] MEDS: ASCORBIC ACID 500 MG TABLET (FP) PO SCH (09:11)
[2017-04-17] MEDS: CHOLECALCIFEROL (VITAMIN D3) 1,000 UNIT TABLET (FP) PO SCH (09:11)
[2017-04-17] MEDS: PANTOPRAZOLE 20 MG TABLET (FP) PO SCH (09:11)
[2017-04-17] MEDS: POTASSIUM CHLORIDE TABS 10 MEQ TABLET.ER (FP) PO SCH ×2 (09:11→22:13)
[2017-04-17] MEDS: predniSONE 5 MG TABLET (UD) PO SCH (09:11)
[2017-04-17] MEDS: hydrALAZINE HCL 25 MG TABLET (FP) PO SCH (09:11)
[2017-04-17] MEDS: oxyCODONE HCL 5 MG TABLET PO PRN (12:38)
--- NOTE | 2017-04-17 17:21 | PN ---
Progress Note, Physician Chief Complaint: abdominal pain, nausea had EGD yesterday- showed erosions secondary to NSAIDs - Current Medication List Current Medications: Active Medications Al Hydroxide/Mg Hydroxide (Mylanta Oral Suspension -) 30 ml PO Q6H PRN PRN Reason: DYSPEPSIA Last Admin: 04/16/17 22:23 Dose: 30 ml Amlodipine Besylate (Norvasc -) 5 mg PO HS [facility] Last Admin: 04/16/17 21:15 Dose: 5 mg Ascorbic Acid (Vitamin C -) 500 mg PO DAILY [facility] Last Admin: 04/17/17 09:11 Dose: 500 mg Atorvastatin Calcium (Lipitor -) 20 mg PO HS [facility] Last Admin: 04/16/17 21:15 Dose: 20 mg Bupropion HCl (Wellbutrin Xl -) 150 mg PO DAILY [facility] Last Admin: 04/17/17 09:10 Dose: 150 mg Cholecalciferol (Vitamin D3 -) 2,000 unit PO DAILY [facility] Last Admin: 04/17/17 09:11 Dose: 2,000 unit Diphenhydramine HCl (Benadryl Injection -) 25 mg IVPB Q6H PRN PRN Reason: FOR ITCHING Last Admin: 04/14/17 07:02 Dose: 25 mg Enalapril Maleate (Vasotec -) 20 mg PO HS [facility] Last Admin: 04/13/17 23:38 Dose: Not Given Folic Acid (Folic Acid -) 1 mg PO DAILY [facility] Last Admin: 04/17/17 09:11 Dose: 1 mg Gabapentin (Neurontin -) 600 mg PO DAILY [facility] Last Admin: 04/17/17 09:10 Dose: 600 mg Gemfibrozil (Lopid -) 600 mg PO BID [facility] Last Admin: 04/17/17 09:11 Dose: 600 mg Hydralazine HCl (Apresoline -) 50 mg PO HS [facility] Last Admin: 04/16/17 21:14 Dose: 50 mg Hydralazine HCl (Apresoline -) 25 mg PO DAILY [facility] Last Admin: 04/17/17 09:11 Dose: 25 mg Levothyroxine Sodium (Synthroid -) 25 mcg PO ACBK [facility] Last Admin: 04/17/17 08:15 Dose: 25 mcg Methotrexate (Mexate -) 20 mg PO Tu@1000 [facility] Last Admin: 04/13/17 20:29 Dose: Not Given Metoprolol Tartrate (Lopressor -) 75 mg PO HS [facility] Last Admin: 04/13/17 23:38 Dose: Not Given Metoprolol Tartrate (Lopressor -) 50 mg PO DAILY [facility] Last Admin: 04/17/17 09:10 Dose: 50 mg Mirtazapine (Remeron -) 15 mg PO HS [facility] Last Admin: 04/16/17 21:14 Dose: 15 mg Ondansetron HCl (Zofran Injection) 4 mg IVPB Q8H PRN PRN Reason: NAUSEA Last Admin: 04/14/17 20:40 Dose: 4 mg Oxycodone HCl (Roxicodone -) 5 mg PO Q6H PRN PRN Reason: PAIN Last Admin: 04/17/17 12:38 Dose: 5 mg Pantoprazole Sodium (Protonix -) 20 mg PO DAILY [facility] Last Admin: 04/17/17 09:11 Dose: 20 mg Potassium Chloride (K-Dur -) 10 meq PO BID [facility] Last Admin: 04/17/17 09:11 Dose: 10 meq Prednisone (Deltasone -) 5 mg PO DAILY [facility] Last Admin: 04/17/17 09:11 Dose: 5 mg Sodium Chloride (Sodium Chloride Tablet -) 1 gm PO BID [facility] Last Admin: 04/17/17 09:11 Dose: 1 gm - Objective Vital Signs: Vital Signs Temperature 98.6 F 04/17/17 14:29 Pulse Rate 60 04/17/17 14:29 Respiratory Rate 22 04/17/17 14:29 Blood Pressure 128/60 04/17/17 14:29 O2 Sat by Pulse Oximetry (%) 93 L 04/17/17 09:00 Constitutional: Yes: Well Nourished, No Distress, Calm Cardiovascular: Yes: Regular Rate and Rhythm Respiratory: Yes: Regular Gastrointestinal: Yes: Normal Bowel Sounds Edema: No Peripheral Pulses WNL: Yes Labs: CBC, BMP 04/16/17 07:00 04/17/17 07:00 Problem List - Problems (1) CAD (coronary artery disease) Code(s): I25.10 - ATHSCL HEART DISEASE OF [place] CORONARY ARTERY W/O ANG PCTRS (2) Epigastric abdominal pain Assessment/Plan: -secondary to gastric erosion vs cholelithiasis -HYDA scan on wednesday, not done on the weekends -Although improved, still has epigastric pain -PPI Code(s): R10.13 - EPIGASTRIC PAIN (3) Cholelithiases Assessment/Plan: -HYDA scan on Wednesday -seen by GI surgery Code(s): K80.20 - CALCULUS OF GALLBLADDER W/O CHOLECYSTITIS W/O OBSTRUCTION Qualifiers: Cholelithiasis location: gallbladder Cholecystitis presence: without cholecystitis Biliary obstruction: without biliary obstruction Qualified Code(s): K80.20 - Calculus of gallbladder without cholecystitis without obstruction (4) Decreased appetite Assessment/Plan: -improved Code(s): R63.0 - ANOREXIA (5) Nausea Assessment/Plan: intermittent, but better Code(s): R11.0 - NAUSEA (6) Gastric erosion determined by endoscopy Assessment/Plan: -Has RA, has been taking anti-inflammatory for years for pain management -recommend tramadol, said she has tried her husbands Tramadol which helped. Code(s): K25.9 - GASTRIC ULCER, UNSP ACUTE OR CHRONIC, W/O HEMOR OR PERF (7) Hyponatremia Assessment/Plan: -improved -on NACL tabs -nephrology on board Code(s): E87.1 - HYPO-OSMOLALITY AND HYPONATREMIA (8) Leukocytopenia Assessment/Plan: -repeat labs in AM Code(s): D72.819 - DECREASED WHITE BLOOD CELL COUNT, UNSPECIFIED Assessment/Plan see problem list
[2017-04-17] MEDS ORDERED: DOCUSATE SODIUM 100 MG CAPSULE (FP) PO PRN (17:46)
[2017-04-17] MEDS: ATORVASTATIN CA 20 MG TABLET (FP) PO SCH (22:12)
[2017-04-17] MEDS: hydrALAZINE HCL 50 MG TABLET (FP) PO SCH (22:13)
[2017-04-17] MEDS: MIRTAZAPINE 15 MG TABLET (FP) PO SCH (22:13)
[2017-04-17] MEDS: amLODIPine BESYLATE 5 MG TABLET (FP) PO SCH (22:13)
[2017-04-18] MEDS: LEVOTHYROXINE NA 25 MCG TABLET (FP) PO SCH (06:07)
[2017-04-18 08:08] LABS: BASOPHIL 1.2 % (0-2.0); EOSINOPHIL 2.3 % (0-4.5); MCH 31.7 pg (25.7-33.7); MCHC 33.6 g/dl (32.0-36.0); MEAN CELL VOLUME 94.2 fl (80-96); MEAN PLT VOLUME 7.3 fl (7.5-11.1); PLATELET COUNT 198 K/MM3 (134-434); RDW 17.5 % (11.6-15.6); WHITE BLOOD COUNT 4.1 K/mm3 (4.0-10.0)
[2017-04-18] MEDS: traMADol HCL 50 MG TABLET PO PRN ×2 (08:25→20:16)
[2017-04-18 08:45] LABS: ALBUMIN 2.8 g/dl (3.4-5.0); ANION GAP 7 (8-16); CO2 33 mmol/L (21-32); GLUCOSE,RANDOM 81 mg/dL (74-106)
[2017-04-18 08:49] LABS: ALK PHOS 88 U/L (45-117); BILIRUBIN,TOTAL 0.5 mg/dL (0.2-1.0); CREATININE 0.5 mg/dL (0.55-1.02); SGOT/AST 21 U/L (15-37); SGPT/ALT 9 U/L (12-78); TOT PROT 7.1 g/dl (6.4-8.2)
[2017-04-18] MEDS ORDERED: PT OWN MED DRAWER 7, Y5N ONE (10:20)
[2017-04-18] MEDS: POTASSIUM CHLORIDE TABS 10 MEQ TABLET.ER (FP) PO SCH ×2 (10:22→21:33)
[2017-04-18] MEDS: METOPROLOL TARTRATE 50 MG TABLET (FP) PO SCH (10:22)
[2017-04-18] MEDS: GABAPENTIN 300 MG CAPSULE (FP) PO SCH (10:22)
[2017-04-18] MEDS: CHOLECALCIFEROL (VITAMIN D3) 1,000 UNIT TABLET (FP) PO SCH (10:22)
[2017-04-18] MEDS: PANTOPRAZOLE 20 MG TABLET (FP) PO SCH (10:23)
[2017-04-18] MEDS: predniSONE 5 MG TABLET (UD) PO SCH (10:23)
[2017-04-18] MEDS: FOLIC ACID 1 MG TABLET (FP) PO SCH (10:23)
[2017-04-18] MEDS: ASCORBIC ACID 500 MG TABLET (FP) PO SCH (10:23)
[2017-04-18] MEDS: hydrALAZINE HCL 25 MG TABLET (FP) PO SCH (10:23)
[2017-04-18] MEDS: GEMFIBROZIL 600 MG TABLET (FP) PO SCH ×2 (10:24→21:37)
[2017-04-18] MEDS: SODIUM CHLORIDE 1 GM TABLET PO SCH ×2 (10:24→21:34)
--- NOTE | 2017-04-18 12:43 | PN ---
Progress Note, Physician Chief Complaint: abdominal pain, nausea had EGD yesterday- showed erosions secondary to NSAIDs History of Present Illness: NAD, in bed, self ambulatory - Current Medication List Current Medications: Active Medications Al Hydroxide/Mg Hydroxide (Mylanta Oral Suspension -) 30 ml PO Q6H PRN PRN Reason: DYSPEPSIA Last Admin: 04/16/17 22:23 Dose: 30 ml Amlodipine Besylate (Norvasc -) 5 mg PO HS [facility] Last Admin: 04/17/17 22:13 Dose: 5 mg Ascorbic Acid (Vitamin C -) 500 mg PO DAILY [facility] Last Admin: 04/18/17 10:23 Dose: 500 mg Atorvastatin Calcium (Lipitor -) 20 mg PO HS [facility] Last Admin: 04/17/17 22:12 Dose: 20 mg Bupropion HCl (Wellbutrin Xl -) 150 mg PO DAILY [facility] Last Admin: 04/18/17 10:22 Dose: 150 mg Cholecalciferol (Vitamin D3 -) 2,000 unit PO DAILY [facility] Last Admin: 04/18/17 10:22 Dose: 2,000 unit Diphenhydramine HCl (Benadryl Injection -) 25 mg IVPB Q6H PRN PRN Reason: FOR ITCHING Last Admin: 04/14/17 07:02 Dose: 25 mg Docusate Sodium (Colace -) 100 mg PO BID PRN PRN Reason: CONSTIPATION Enalapril Maleate (Vasotec -) 20 mg PO HS [facility] Last Admin: 04/13/17 23:38 Dose: Not Given Folic Acid (Folic Acid -) 1 mg PO DAILY [facility] Last Admin: 04/18/17 10:23 Dose: 1 mg Gabapentin (Neurontin -) 600 mg PO DAILY [facility] Last Admin: 04/18/17 10:22 Dose: 600 mg Gemfibrozil (Lopid -) 600 mg PO BID [facility] Last Admin: 04/18/17 10:24 Dose: 600 mg Hydralazine HCl (Apresoline -) 50 mg PO HS [facility] Last Admin: 04/17/17 22:13 Dose: 50 mg Hydralazine HCl (Apresoline -) 25 mg PO DAILY [facility] Last Admin: 04/18/17 10:23 Dose: 25 mg Levothyroxine Sodium (Synthroid -) 25 mcg PO ACBK [facility] Last Admin: 04/18/17 06:07 Dose: 25 mcg Methotrexate (Mexate -) 20 mg PO Tu@1000 [facility] Last Admin: 04/13/17 20:29 Dose: Not Given Metoprolol Tartrate (Lopressor -) 75 mg PO HS [facility] Last Admin: 04/13/17 23:38 Dose: Not Given Metoprolol Tartrate (Lopressor -) 50 mg PO DAILY [facility] Last Admin: 04/18/17 10:22 Dose: 50 mg Mirtazapine (Remeron -) 15 mg PO HS [facility] Last Admin: 04/17/17 22:13 Dose: 15 mg Ondansetron HCl (Zofran Injection) 4 mg IVPB Q8H PRN PRN Reason: NAUSEA Last Admin: 04/14/17 20:40 Dose: 4 mg Pantoprazole Sodium (Protonix -) 20 mg PO DAILY [facility] Last Admin: 04/18/17 10:23 Dose: 20 mg Potassium Chloride (K-Dur -) 10 meq PO BID [facility] Last Admin: 04/18/17 10:22 Dose: 10 meq Prednisone (Deltasone -) 5 mg PO DAILY [facility] Last Admin: 04/18/17 10:23 Dose: 5 mg Sodium Chloride (Sodium Chloride Tablet -) 1 gm PO BID [facility] Last Admin: 04/18/17 10:24 Dose: 1 gm Tramadol HCl (Ultram -) 50 mg PO Q8H PRN PRN Reason: PAIN Last Admin: 04/18/17 08:25 Dose: 50 mg - Objective Vital Signs: Vital Signs Temperature 97.7 F 04/18/17 08:53 Pulse Rate 78 04/18/17 08:53 Respiratory Rate 16 04/18/17 08:53 Blood Pressure 153/68 04/18/17 08:53 O2 Sat by Pulse Oximetry (%) 95 04/17/17 21:00 Constitutional: Yes: Well Nourished, No Distress, Calm Cardiovascular: Yes: Regular Rate and Rhythm Respiratory: Yes: Regular Musculoskeletal: Yes: WNL Edema: Yes Edema: LLE: 1+, RLE: 1+ Neurological: Yes: Alert, Oriented Psychiatric: Yes: Alert, Oriented Labs: CBC, BMP 04/18/17 07:30 04/18/17 07:30 Problem List - Problems (1) CAD (coronary artery disease) Code(s): I25.10 - ATHSCL HEART DISEASE OF [place] CORONARY ARTERY W/O ANG PCTRS (2) Epigastric abdominal pain Assessment/Plan: -secondary to gastric erosion vs cholelithiasis -HYDA scan on wednesday, not done on the weekends -Although improved, still has epigastric pain -PPI Code(s): R10.13 - EPIGASTRIC PAIN (3) Cholelithiases Assessment/Plan: -HYDA scan on Wednesday -seen by GI surgery Code(s): K80.20 - CALCULUS OF GALLBLADDER W/O CHOLECYSTITIS W/O OBSTRUCTION Qualifiers: Cholelithiasis location: gallbladder Cholecystitis presence: without cholecystitis Biliary obstruction: without biliary obstruction Qualified Code(s): K80.20 - Calculus of gallbladder without cholecystitis without obstruction; K80.20 - Calculus of gallbladder without cholecystitis without obstruction (4) Decreased appetite Assessment/Plan: -improved Code(s): R63.0 - ANOREXIA (5) Nausea Assessment/Plan: intermittent, but better Code(s): R11.0 - NAUSEA (6) Gastric erosion determined by endoscopy Assessment/Plan: -Has RA, has been taking anti-inflammatory for years for pain management -recommend tramadol, said she has tried her husbands Tramadol which helped. Code(s): K25.9 - GASTRIC ULCER, UNSP ACUTE OR CHRONIC, W/O HEMOR OR PERF (7) Hyponatremia Assessment/Plan: -improved -on NACL tabs -nephrology on board Code(s): E87.1 - HYPO-OSMOLALITY AND HYPONATREMIA (8) Leukocytopenia Assessment/Plan: -repeat labs in AM Code(s): D72.819 - DECREASED WHITE BLOOD CELL COUNT, UNSPECIFIED Assessment/Plan see problem list
[2017-04-18] MEDS: hydrALAZINE HCL 50 MG TABLET (FP) PO SCH (21:33)
[2017-04-18] MEDS: amLODIPine BESYLATE 5 MG TABLET (FP) PO SCH (21:33)
[2017-04-18] MEDS: ATORVASTATIN CA 20 MG TABLET (FP) PO SCH (21:33)
[2017-04-18] MEDS: MIRTAZAPINE 15 MG TABLET (FP) PO SCH (21:34)
[2017-04-19] MEDS: LEVOTHYROXINE NA 25 MCG TABLET (FP) PO SCH (06:07)
[2017-04-19] MEDS: traMADol HCL 50 MG TABLET PO PRN ×2 (06:07→22:40)
[2017-04-19] MEDS ORDERED: PT OWN MED DRAWER 7, Y5N ONE (10:08)
--- NOTE | 2017-04-19 11:58 | PN ---
Progress Note, Physician Chief Complaint: abd pain History of Present Illness: still has abd pain, not sure if better or not denies cp, sob, palpitations - Current Medication List Current Medications: Active Medications Al Hydroxide/Mg Hydroxide (Mylanta Oral Suspension -) 30 ml PO Q6H PRN PRN Reason: DYSPEPSIA Last Admin: 04/16/17 22:23 Dose: 30 ml Amlodipine Besylate (Norvasc -) 5 mg PO HS [facility] Last Admin: 04/18/17 21:33 Dose: 5 mg Ascorbic Acid (Vitamin C -) 500 mg PO DAILY [facility] Last Admin: 04/18/17 10:23 Dose: 500 mg Atorvastatin Calcium (Lipitor -) 20 mg PO HS [facility] Last Admin: 04/18/17 21:33 Dose: 20 mg Bupropion HCl (Wellbutrin Xl -) 150 mg PO DAILY [facility] Last Admin: 04/18/17 10:22 Dose: 150 mg Cholecalciferol (Vitamin D3 -) 2,000 unit PO DAILY [facility] Last Admin: 04/18/17 10:22 Dose: 2,000 unit Diphenhydramine HCl (Benadryl Injection -) 25 mg IVPB Q6H PRN PRN Reason: FOR ITCHING Last Admin: 04/14/17 07:02 Dose: 25 mg Docusate Sodium (Colace -) 100 mg PO BID PRN PRN Reason: CONSTIPATION Enalapril Maleate (Vasotec -) 20 mg PO HS [facility] Last Admin: 04/13/17 23:38 Dose: Not Given Folic Acid (Folic Acid -) 1 mg PO DAILY [facility] Last Admin: 04/18/17 10:23 Dose: 1 mg Gabapentin (Neurontin -) 600 mg PO DAILY [facility] Last Admin: 04/18/17 10:22 Dose: 600 mg Gemfibrozil (Lopid -) 600 mg PO BID [facility] Last Admin: 04/18/17 21:37 Dose: 600 mg Hydralazine HCl (Apresoline -) 50 mg PO HS [facility] Last Admin: 04/18/17 21:33 Dose: 50 mg Hydralazine HCl (Apresoline -) 25 mg PO DAILY [facility] Last Admin: 04/18/17 10:23 Dose: 25 mg Levothyroxine Sodium (Synthroid -) 25 mcg PO ACBK [facility] Last Admin: 04/19/17 06:07 Dose: 25 mcg Methotrexate (Mexate -) 20 mg PO Tu@1000 [facility] Last Admin: 04/13/17 20:29 Dose: Not Given Metoprolol Tartrate (Lopressor -) 75 mg PO HS [facility] Last Admin: 04/13/17 23:38 Dose: Not Given Metoprolol Tartrate (Lopressor -) 50 mg PO DAILY [facility] Last Admin: 04/18/17 10:22 Dose: 50 mg Mirtazapine (Remeron -) 15 mg PO HS [facility] Last Admin: 04/18/17 21:34 Dose: 15 mg Ondansetron HCl (Zofran Injection) 4 mg IVPB Q8H PRN PRN Reason: NAUSEA Last Admin: 04/14/17 20:40 Dose: 4 mg Pantoprazole Sodium (Protonix -) 20 mg PO DAILY [facility] Last Admin: 04/18/17 10:23 Dose: 20 mg Potassium Chloride (K-Dur -) 10 meq PO BID [facility] Last Admin: 04/18/17 21:33 Dose: 10 meq Prednisone (Deltasone -) 5 mg PO DAILY [facility] Last Admin: 04/18/17 10:23 Dose: 5 mg Sodium Chloride (Sodium Chloride Tablet -) 1 gm PO BID [facility] Last Admin: 04/18/17 21:34 Dose: 1 gm Tramadol HCl (Ultram -) 50 mg PO Q8H PRN PRN Reason: PAIN Last Admin: 04/19/17 06:07 Dose: 50 mg - Objective Vital Signs: Vital Signs Temperature 98.3 F 04/19/17 10:00 Pulse Rate 79 04/19/17 10:00 Respiratory Rate 18 04/19/17 10:00 Blood Pressure 139/69 04/19/17 10:00 O2 Sat by Pulse Oximetry (%) 98 04/19/17 08:27 Constitutional: Yes: Well Nourished, No Distress, Calm Cardiovascular: Yes: Regular Rate and Rhythm, S1, S2. No: Gallop, Murmur Respiratory: Yes: Regular, CTA Bilaterally (decr sounds diffusely). No: Accessory Muscle Use, Rales, Wheezes Extremities: No: Cold Edema: No Neurological: Yes: Alert. No: Seizure Psychiatric: No: Agitated Labs: CBC, BMP 04/18/17 07:30 04/18/17 07:30 Assessment/Plan echo 04/2013: nl lv/rv, no sig valve path mibi 04/2013: mod septal ischemia per report a/p: 71 f hx copd, htn, hld, dementia, possible cad (+mibi) here with epigastric pain/nausea for 1 week. epigastric pain: -gastric erosions noted on egd, likely sec to nsaids--cont GI meds per their recs -for hida scan htn: -bp control complicated by h/o labile bp's, med non-adherence/confusion at times , and h/o marked orthosatic hypotension with syncope in past -has had no syncope/positional LH sx's in long time, off fludrocortisone since 2016 due to spikes in BPs at that time -cont home meds, observe BP trend and dizzy sx's hld: -cont statin possible cad: -prior mibi 2012 reported low-risk area of (septal) ischemia and has been managed medically with no angina sx's -pt with extensive atherosclerotic aorta vascular disease -normal lvef -no angina suspected here -cont statin, bb, randall. -defer ASA for now given NSAID-related PUD on EGD, consider adding back later once supplemental NSAID analgesics are curtailed at home, and abd sx's resolve on PPI copd with hypoxia, pulm HTN: -recently with marked PA dilation noted on CTA chest -she has known copd -6 minute walk test with + desaturation to 80s% -pt and family declined home O2 due to concerns about risks of canister explosion with her ongoing cig smoking thoracic and abdominal aorta aneurysms: -known ascending aorta aneurysm 4.8cm, and descending aorta aneurysm 4.0cm, both unchanged on 01/02 study -small infrarenal AAA 3.2cm, increased vs 2.7 cm in 2016--to be reimaged at 6 mo (07/04), via office f/u with dr newsome -bp control as doing, complicated as described + cigs: -repeatedly counselled cessation benefits and available modalities as outpt--pt has declined autoimmune peripheral neuropathy: -on IVIG per dr leslie
[2017-04-19] MEDS: POTASSIUM CHLORIDE TABS 10 MEQ TABLET.ER (FP) PO SCH ×2 (12:08→22:38)
[2017-04-19] MEDS: ASCORBIC ACID 500 MG TABLET (FP) PO SCH (12:09)
[2017-04-19] MEDS: FOLIC ACID 1 MG TABLET (FP) PO SCH (12:09)
[2017-04-19] MEDS: METOPROLOL TARTRATE 50 MG TABLET (FP) PO SCH (12:10)
[2017-04-19] MEDS: GABAPENTIN 300 MG CAPSULE (FP) PO SCH (12:10)
[2017-04-19] MEDS: PANTOPRAZOLE 20 MG TABLET (FP) PO SCH (12:11)
[2017-04-19] MEDS: hydrALAZINE HCL 25 MG TABLET (FP) PO SCH (12:11)
[2017-04-19] MEDS: CHOLECALCIFEROL (VITAMIN D3) 1,000 UNIT TABLET (FP) PO SCH (12:12)
[2017-04-19] MEDS: SODIUM CHLORIDE 1 GM TABLET PO SCH ×2 (12:13→23:03)
[2017-04-19] MEDS: GEMFIBROZIL 600 MG TABLET (FP) PO SCH ×2 (12:14→23:02)
[2017-04-19] MEDS: predniSONE 5 MG TABLET (UD) PO SCH (12:20)
[2017-04-19 13:50] LABS: ANION GAP 10 (8-16); CALCIUM 9.3 mg/dL (8.5-10.1); CO2 28 mmol/L (21-32); CREATININE 0.6 mg/dL (0.55-1.02); GLUCOSE,RANDOM 165 mg/dL (74-106)
[2017-04-19] MEDS ORDERED: FLU VACCINE QUAD 60 MCG/0.5 ML (MDV 17-18) IM ONE (14:30)
--- NOTE | 2017-04-19 14:52 | PN ---
Progress Note, Physician Chief Complaint: came back from hida scan has abdominal pain - Current Medication List Current Medications: Active Medications Al Hydroxide/Mg Hydroxide (Mylanta Oral Suspension -) 30 ml PO Q6H PRN PRN Reason: DYSPEPSIA Last Admin: 04/16/17 22:23 Dose: 30 ml Amlodipine Besylate (Norvasc -) 5 mg PO HS [facility] Last Admin: 04/18/17 21:33 Dose: 5 mg Ascorbic Acid (Vitamin C -) 500 mg PO DAILY [facility] Last Admin: 04/19/17 12:09 Dose: 500 mg Atorvastatin Calcium (Lipitor -) 20 mg PO HS [facility] Last Admin: 04/18/17 21:33 Dose: 20 mg Bupropion HCl (Wellbutrin Xl -) 150 mg PO DAILY [facility] Last Admin: 04/19/17 12:12 Dose: 150 mg Cholecalciferol (Vitamin D3 -) 2,000 unit PO DAILY [facility] Last Admin: 04/19/17 12:12 Dose: 2,000 unit Diphenhydramine HCl (Benadryl Injection -) 25 mg IVPB Q6H PRN PRN Reason: FOR ITCHING Last Admin: 04/14/17 07:02 Dose: 25 mg Docusate Sodium (Colace -) 100 mg PO BID PRN PRN Reason: CONSTIPATION Enalapril Maleate (Vasotec -) 20 mg PO HS [facility] Last Admin: 04/13/17 23:38 Dose: Not Given Folic Acid (Folic Acid -) 1 mg PO DAILY [facility] Last Admin: 04/19/17 12:09 Dose: 1 mg Gabapentin (Neurontin -) 600 mg PO DAILY [facility] Last Admin: 04/19/17 12:10 Dose: 600 mg Gemfibrozil (Lopid -) 600 mg PO BID [facility] Last Admin: 04/19/17 12:14 Dose: 600 mg Hydralazine HCl (Apresoline -) 50 mg PO HS [facility] Last Admin: 04/18/17 21:33 Dose: 50 mg Hydralazine HCl (Apresoline -) 25 mg PO DAILY [facility] Last Admin: 04/19/17 12:11 Dose: 25 mg Levothyroxine Sodium (Synthroid -) 25 mcg PO ACBK [facility] Last Admin: 04/19/17 06:07 Dose: 25 mcg Methotrexate (Mexate -) 20 mg PO Tu@1000 [facility] Last Admin: 04/13/17 20:29 Dose: Not Given Metoprolol Tartrate (Lopressor -) 75 mg PO HS [facility] Last Admin: 04/13/17 23:38 Dose: Not Given Metoprolol Tartrate (Lopressor -) 50 mg PO DAILY [facility] Last Admin: 04/19/17 12:10 Dose: 50 mg Mirtazapine (Remeron -) 15 mg PO HS [facility] Last Admin: 04/18/17 21:34 Dose: 15 mg Ondansetron HCl (Zofran Injection) 4 mg IVPB Q8H PRN PRN Reason: NAUSEA Last Admin: 04/14/17 20:40 Dose: 4 mg Pantoprazole Sodium (Protonix -) 20 mg PO DAILY [facility] Last Admin: 04/19/17 12:11 Dose: 20 mg Potassium Chloride (K-Dur -) 10 meq PO BID [facility] Last Admin: 04/19/17 12:08 Dose: 10 meq Prednisone (Deltasone -) 5 mg PO DAILY [facility] Last Admin: 04/19/17 12:20 Dose: 5 mg Sodium Chloride (Sodium Chloride Tablet -) 1 gm PO BID [facility] Last Admin: 04/19/17 12:13 Dose: 1 gm Tramadol HCl (Ultram -) 50 mg PO Q8H PRN PRN Reason: PAIN Last Admin: 04/19/17 06:07 Dose: 50 mg - Objective Vital Signs: Vital Signs Temperature 98.5 F 04/19/17 13:51 Pulse Rate 61 04/19/17 13:51 Respiratory Rate 18 04/19/17 10:00 Blood Pressure 124/50 04/19/17 13:51 O2 Sat by Pulse Oximetry (%) 98 04/19/17 08:27 Constitutional: Yes: Calm Cardiovascular: Yes: Regular Rate and Rhythm, S1, S2 Respiratory: Yes: CTA Bilaterally Gastrointestinal: Yes: Normal Bowel Sounds, Soft, Tenderness, Epigastrium Edema: No Neurological: Yes: Alert, Oriented (to name) Labs: CBC, BMP 04/18/17 07:30 04/19/17 13:15 Problem List - Problems (1) Epigastric abdominal pain Assessment/Plan: s/p EGD shows gastric erosion secondary to NSAId HIDA scan done awaiting report surgery FU as well Code(s): R10.13 - EPIGASTRIC PAIN (2) CAD (coronary artery disease) Assessment/Plan: BB, ACEI, hydralazine no aspirin til gastric erosion are healed patient is on ppi Code(s): I25.10 - ATHSCL HEART DISEASE OF [place] CORONARY ARTERY W/O ANG PCTRS (3) Hyperlipidemia Assessment/Plan: lipid profile noted and continue statin and gemfibrozil for now Code(s): E78.5 - HYPERLIPIDEMIA, UNSPECIFIED (4) Decreased appetite Assessment/Plan: remeron, ensure Code(s): R63.0 - ANOREXIA (5) Hyponatremia Assessment/Plan: na is better today 133 Code(s): E87.1 - HYPO-OSMOLALITY AND HYPONATREMIA (6) Rheumatoid arthritis Assessment/Plan: mtx and prednisone no nsaid and asa bc of gastric erosions Code(s): M06.9 - RHEUMATOID ARTHRITIS, UNSPECIFIED (7) Depression Code(s): F32.9 - MAJOR DEPRESSIVE DISORDER, SINGLE EPISODE, UNSPECIFIED
--- NOTE | 2017-04-19 19:37 | PN ---
Progress Note (short form) - Note Progress Note: No new events reported Had HIDA done Vital Signs Period Temp Pulse Resp BP Sys/[place] Pulse Ox Last 24 Hr 97.9 F-98.7 F 61-79 16-20 122-153/50-74 98-98 CBC,CMP WBC 4.1 K/mm3 (4.0-10.0) 04/18/17 07:30 RBC 4.21 M/mm3 (3.60-5.2) 04/18/17 07:30 Hgb 13.3 GM/dL (10.7-15.3) 04/18/17 07:30 Hct 39.6 % (32.4-45.2) 04/18/17 07:30 MCV 94.2 fl (80-96) 04/18/17 07:30 MCH 31.7 pg (25.7-33.7) 04/18/17 07:30 MCHC 33.6 g/dl (32.0-36.0) 04/18/17 07:30 RDW 17.5 % (11.6-15.6) H 04/18/17 07:30 Plt Count 198 K/MM3 (134-434) 04/18/17 07:30 MPV 7.3 fl (7.5-11.1) L 04/18/17 07:30 Neutrophils % 32.0 % (42.8-82.8) L D 04/18/17 07:30 Lymphocytes % 52.2 % (8-40) H 04/18/17 07:30 Monocytes % 12.3 % (3.8-10.2) H 04/18/17 07:30 Eosinophils % 2.3 % (0-4.5) 04/18/17 07:30 Basophils % 1.2 % (0-2.0) 04/18/17 07:30 Sodium 133 mmol/L (136-145) L 04/19/17 13:15 Potassium 3.8 mmol/L (3.5-5.1) 04/19/17 13:15 Chloride 95 mmol/L (98-107) L 04/19/17 13:15 Carbon Dioxide 28 mmol/L (21-32) 04/19/17 13:15 Anion Gap 10 (8-16) 04/19/17 13:15 BUN 9 mg/dL (7-18) 04/19/17 13:15 Creatinine 0.6 mg/dL (0.55-1.02) 04/19/17 13:15 Creat Clearance w eGFR > 60 (>60) 04/18/17 07:30 Random Glucose 165 mg/dL (74-106) H D 04/19/17 13:15 Serum Osmolality 275 mosm/kg (278-305) L 04/15/17 20:00 Uric Acid 3.8 mg/dL (2.6-7.2) 04/15/17 20:00 Calcium 9.3 mg/dL (8.5-10.1) 04/19/17 13:15 Phosphorus 2.5 mg/dL (2.5-4.9) 04/17/17 07:00 Magnesium 1.8 mg/dL (1.8-2.4) 04/17/17 07:00 Total Bilirubin 0.5 mg/dL (0.2-1.0) D 04/18/17 07:30 AST 21 U/L (15-37) 04/18/17 07:30 ALT 9 U/L (12-78) L 04/18/17 07:30 Alkaline Phosphatase 88 U/L (45-117) 04/18/17 07:30 Creatine Kinase 58 IU/L (26-192) 04/14/17 07:10 Troponin I 0.02 ng/ml (0.00-0.05) 04/14/17 07:10 Total Protein 7.1 g/dl (6.4-8.2) 04/18/17 07:30 Albumin 2.8 g/dl (3.4-5.0) L 04/18/17 07:30 Triglycerides 54 mg/dL (35-160) D 04/16/17 07:00 Cholesterol 99 mg/dL (50-200) 04/16/17 07:00 Total LDL Cholesterol 43 mg/dL (5-100) 04/16/17 07:00 HDL Cholesterol 52 mg/dL (40-60) D 04/16/17 07:00 Lipase 104 U/L (73-393) 04/13/17 11:08 TSH 1.36 uIU/ml (0.358-3.74) D 04/16/17 07:00 Cortisol AM Sample 1.8 ug/dL (.) 04/16/17 07:00 Awaiting HIDA scan report Problem List - Problems (1) Cholelithiases Code(s): K80.20 - CALCULUS OF GALLBLADDER W/O CHOLECYSTITIS W/O OBSTRUCTION Qualifiers: Cholelithiasis location: gallbladder Cholecystitis presence: without cholecystitis Biliary obstruction: without biliary obstruction Qualified Code(s): K80.20 - Calculus of gallbladder without cholecystitis without obstruction; K80.20 - Calculus of gallbladder without cholecystitis without obstruction (2) Epigastric abdominal pain Code(s): R10.13 - EPIGASTRIC PAIN
[2017-04-19] MEDS: hydrALAZINE HCL 50 MG TABLET (FP) PO SCH (22:38)
[2017-04-19] MEDS: ATORVASTATIN CA 20 MG TABLET (FP) PO SCH (22:38)
[2017-04-19] MEDS: amLODIPine BESYLATE 5 MG TABLET (FP) PO SCH (22:39)
[2017-04-19] MEDS: MIRTAZAPINE 15 MG TABLET (FP) PO SCH (22:39)
[2017-04-20] MEDS: LEVOTHYROXINE NA 25 MCG TABLET (FP) PO SCH (06:38)
[2017-04-20] MEDS: traMADol HCL 50 MG TABLET PO PRN ×3 (08:01→21:53)
--- NOTE | 2017-04-20 09:37 | PN ---
Progress Note, Physician Chief Complaint: patient awake alert no distress - Current Medication List Current Medications: Active Medications Al Hydroxide/Mg Hydroxide (Mylanta Oral Suspension -) 30 ml PO Q6H PRN PRN Reason: DYSPEPSIA Last Admin: 04/16/17 22:23 Dose: 30 ml Amlodipine Besylate (Norvasc -) 5 mg PO HS [facility] Last Admin: 04/19/17 22:39 Dose: 5 mg Ascorbic Acid (Vitamin C -) 500 mg PO DAILY [facility] Last Admin: 04/19/17 12:09 Dose: 500 mg Atorvastatin Calcium (Lipitor -) 20 mg PO HS [facility] Last Admin: 04/19/17 22:38 Dose: 20 mg Bupropion HCl (Wellbutrin Xl -) 150 mg PO DAILY [facility] Last Admin: 04/19/17 12:12 Dose: 150 mg Cholecalciferol (Vitamin D3 -) 2,000 unit PO DAILY [facility] Last Admin: 04/19/17 12:12 Dose: 2,000 unit Diphenhydramine HCl (Benadryl Injection -) 25 mg IVPB Q6H PRN PRN Reason: FOR ITCHING Last Admin: 04/14/17 07:02 Dose: 25 mg Docusate Sodium (Colace -) 100 mg PO BID PRN PRN Reason: CONSTIPATION Enalapril Maleate (Vasotec -) 20 mg PO [facility] Last Admin: 04/13/17 23:38 Dose: Not Given Folic Acid (Folic Acid -) 1 mg PO DAILY [facility] Last Admin: 04/19/17 12:09 Dose: 1 mg Gabapentin (Neurontin -) 600 mg PO DAILY [facility] Last Admin: 04/19/17 12:10 Dose: 600 mg Gemfibrozil (Lopid -) 600 mg PO BID [facility] Last Admin: 04/19/17 23:02 Dose: 600 mg Hydralazine HCl (Apresoline -) 50 mg PO HS [facility] Last Admin: 04/19/17 22:38 Dose: 50 mg Hydralazine HCl (Apresoline -) 25 mg PO DAILY [facility] Last Admin: 04/19/17 12:11 Dose: 25 mg Levothyroxine Sodium (Synthroid -) 25 mcg PO ACBK [facility] Last Admin: 04/20/17 06:38 Dose: 25 mcg Methotrexate (Mexate -) 20 mg PO Tu@1000 [facility] Last Admin: 04/13/17 20:29 Dose: Not Given Metoprolol Tartrate (Lopressor -) 75 mg PO HS [facility] Last Admin: 04/13/17 23:38 Dose: Not Given Metoprolol Tartrate (Lopressor -) 50 mg PO DAILY [facility] Last Admin: 04/19/17 12:10 Dose: 50 mg Mirtazapine (Remeron -) 15 mg PO HS [facility] Last Admin: 04/19/17 22:39 Dose: 15 mg Ondansetron HCl (Zofran Injection) 4 mg IVPB Q8H PRN PRN Reason: NAUSEA Last Admin: 04/14/17 20:40 Dose: 4 mg Pantoprazole Sodium (Protonix -) 20 mg PO DAILY [facility] Last Admin: 04/19/17 12:11 Dose: 20 mg Potassium Chloride (K-Dur -) 10 meq PO BID [facility] Last Admin: 04/19/17 22:38 Dose: 10 meq Prednisone (Deltasone -) 5 mg PO DAILY [facility] Last Admin: 04/19/17 12:20 Dose: 5 mg Sodium Chloride (Sodium Chloride Tablet -) 1 gm PO BID [facility] Last Admin: 04/19/17 23:03 Dose: 1 gm Tramadol HCl (Ultram -) 50 mg PO Q8H PRN PRN Reason: PAIN Last Admin: 04/20/17 08:01 Dose: 50 mg - Objective Vital Signs: Vital Signs Temperature 97.8 F 04/20/17 06:00 Pulse Rate 69 04/20/17 06:00 Respiratory Rate 18 04/20/17 06:00 Blood Pressure 124/72 04/20/17 06:00 O2 Sat by Pulse Oximetry (%) 94 L 04/19/17 21:00 Constitutional: Yes: Calm Cardiovascular: Yes: Regular Rate and Rhythm, S1, S2 Respiratory: Yes: CTA Bilaterally Gastrointestinal: Yes: Normal Bowel Sounds, Tenderness, Epigastrium Edema: No Neurological: Yes: Alert Labs: CBC, BMP 04/18/17 07:30 04/19/17 13:15 Problem List - Problems (1) Epigastric abdominal pain Assessment/Plan: s/p EGD shows gastric erosion secondary to NSAId HIDA scan done awaiting report- surgery FU noted awaiting report to decide Code(s): R10.13 - EPIGASTRIC PAIN (2) CAD (coronary artery disease) Assessment/Plan: BB, ACEI, hydralazine no aspirin til gastric erosion are healed patient is on ppi Code(s): I25.10 - ATHSCL HEART DISEASE OF [place] CORONARY ARTERY W/O ANG PCTRS (3) Hyperlipidemia Assessment/Plan: lipid profile noted and continue statin and gemfibrozil for now Code(s): E78.5 - HYPERLIPIDEMIA, UNSPECIFIED (4) Decreased appetite Assessment/Plan: remeron, ensure Code(s): R63.0 - ANOREXIA (5) Hyponatremia Assessment/Plan: na is better today 133 Code(s): E87.1 - HYPO-OSMOLALITY AND HYPONATREMIA (6) Rheumatoid arthritis Assessment/Plan: mtx and prednisone no nsaid and asa bc of gastric erosions Code(s): M06.9 - RHEUMATOID ARTHRITIS, UNSPECIFIED (7) Depression Assessment/Plan: wellbutrin Code(s): F32.9 - MAJOR DEPRESSIVE DISORDER, SINGLE EPISODE, UNSPECIFIED
[2017-04-20] MEDS ORDERED: PT OWN MED DRAWER 7, Y5N ONE ×3 (10:28→21:36)
[2017-04-20] MEDS: GABAPENTIN 300 MG CAPSULE (FP) PO SCH (10:32)
[2017-04-20] MEDS: POTASSIUM CHLORIDE TABS 10 MEQ TABLET.ER (FP) PO SCH ×2 (10:32→21:51)
[2017-04-20] MEDS: predniSONE 5 MG TABLET (UD) PO SCH (10:32)
[2017-04-20] MEDS: ASCORBIC ACID 500 MG TABLET (FP) PO SCH (10:32)
[2017-04-20] MEDS: FOLIC ACID 1 MG TABLET (FP) PO SCH (10:32)
[2017-04-20] MEDS: PANTOPRAZOLE 20 MG TABLET (FP) PO SCH (10:32)
[2017-04-20] MEDS: METOPROLOL TARTRATE 50 MG TABLET (FP) PO SCH (10:32)
[2017-04-20] MEDS: hydrALAZINE HCL 25 MG TABLET (FP) PO SCH (10:32)
[2017-04-20] MEDS: SODIUM CHLORIDE 1 GM TABLET PO SCH (10:33)
[2017-04-20] MEDS: CHOLECALCIFEROL (VITAMIN D3) 1,000 UNIT TABLET (FP) PO SCH (10:33)
[2017-04-20] MEDS: METHOTREXATE 2.5 MG TABLET PO SCH (10:34)
[2017-04-20] MEDS: GEMFIBROZIL 600 MG TABLET (FP) PO SCH ×2 (10:35→21:52)
--- NOTE | 2017-04-20 12:19 | PN ---
Progress Note (short form) - Note Progress Note: Renal follow up for hyponatremia Pt seen and examined at the bedside awake and alert no acute complaints s/p HIDA scan no N/V, confusion, lethargy, weakness Vital Signs Temperature 98.2 F 04/20/17 09:38 Pulse Rate 79 04/20/17 09:38 Respiratory Rate 16 04/20/17 09:38 Blood Pressure 141/70 04/20/17 09:38 O2 Sat by Pulse Oximetry (%) 94 L 04/19/17 21:00 Intake & Output 04/17/17 04/18/17 04/19/17 04/20/17 23:59 23:59 23:59 23:59 Intake Total 900 1070 695 520 Output Total 2 Balance 900 1070 695 518 NAD, awake and alert RRR CTA soft NT/ND no edema CBC, BMP 04/18/17 07:30 04/19/17 13:15 Current Medications Al Hydroxide/Mg Hydroxide (Mylanta Oral Suspension -) 30 ml PO Q6H PRN PRN Reason: DYSPEPSIA Last Admin: 04/16/17 22:23 Dose: 30 ml Amlodipine Besylate (Norvasc -) 5 mg PO HS [facility] Last Admin: 04/19/17 22:39 Dose: 5 mg Ascorbic Acid (Vitamin C -) 500 mg PO DAILY [facility] Last Admin: 04/20/17 10:32 Dose: 500 mg Atorvastatin Calcium (Lipitor -) 20 mg PO HS [facility] Last Admin: 04/19/17 22:38 Dose: 20 mg Bupropion HCl (Wellbutrin Xl -) 150 mg PO DAILY [facility] Last Admin: 04/20/17 10:32 Dose: 150 mg Cholecalciferol (Vitamin D3 -) 2,000 unit PO DAILY [facility] Last Admin: 04/20/17 10:33 Dose: 2,000 unit Diphenhydramine HCl (Benadryl Injection -) 25 mg IVPB Q6H PRN PRN Reason: FOR ITCHING Last Admin: 04/14/17 07:02 Dose: 25 mg Docusate Sodium (Colace -) 100 mg PO BID PRN PRN Reason: CONSTIPATION Enalapril Maleate (Vasotec -) 20 mg PO HS [facility] Last Admin: 04/13/17 23:38 Dose: Not Given Folic Acid (Folic Acid -) 1 mg PO DAILY [facility] Last Admin: 04/20/17 10:32 Dose: 1 mg Gabapentin (Neurontin -) 600 mg PO DAILY [facility] Last Admin: 04/20/17 10:32 Dose: 600 mg Gemfibrozil (Lopid -) 600 mg PO BID [facility] Last Admin: 04/20/17 10:35 Dose: 600 mg Hydralazine HCl (Apresoline -) 50 mg PO HS [facility] Last Admin: 04/19/17 22:38 Dose: 50 mg Hydralazine HCl (Apresoline -) 25 mg PO DAILY [facility] Last Admin: 04/20/17 10:32 Dose: 25 mg Levothyroxine Sodium (Synthroid -) 25 mcg PO ACBK [facility] Last Admin: 04/20/17 06:38 Dose: 25 mcg Methotrexate (Mexate -) 20 mg PO Tu@1000 [facility] Last Admin: 04/20/17 10:34 Dose: 20 mg Metoprolol Tartrate (Lopressor -) 75 mg PO HS [facility] Last Admin: 04/13/17 23:38 Dose: Not Given Metoprolol Tartrate (Lopressor -) 50 mg PO DAILY [facility] Last Admin: 04/20/17 10:32 Dose: 50 mg Mirtazapine (Remeron -) 15 mg PO HS [facility] Last Admin: 04/19/17 22:39 Dose: 15 mg Ondansetron HCl (Zofran Injection) 4 mg IVPB Q8H PRN PRN Reason: NAUSEA Last Admin: 04/14/17 20:40 Dose: 4 mg Pantoprazole Sodium (Protonix -) 20 mg PO DAILY [facility] Last Admin: 04/20/17 10:32 Dose: 20 mg Potassium Chloride (K-Dur -) 10 meq PO BID [facility] Last Admin: 04/20/17 10:32 Dose: 10 meq Prednisone (Deltasone -) 5 mg PO DAILY [facility] Last Admin: 04/20/17 10:32 Dose: 5 mg Sodium Chloride (Sodium Chloride Tablet -) 1 gm PO BID [facility] Last Admin: 04/20/17 10:33 Dose: 1 gm Tramadol HCl (Ultram -) 50 mg PO Q8H PRN PRN Reason: PAIN Last Admin: 04/20/17 08:01 Dose: 50 mg 71 year old woman with PMhx of Hypertension, Asthma, COPD, Peripheral Neuropathy, TIA, RA, Cutaneous Vasculitis who presented from home with complaints of epigastric pain and N/V and found to have hyponatremia. #Hyponatremia with evidence of excessive ADH Urine studies show a high urine Na, High Urine OSM, Normal serum uric acid, low serum osmolarity Studies are indicative of excessive ADH release in the setting of hypoosmolar hyponatremia Serum Na improved to 137 and now 133 (drop related to NPO status?) hold salt tabs and trend serum na levels #Epigastric Pain wit N/V HIDA showed chronic cholecystitis #Hypertension Bp is at [place] presently continue Norvasc and Metoprolol D/c Lasix Thank you Will follow [facility] Problem List - Problems (1) Epigastric abdominal pain Code(s): R10.13 - EPIGASTRIC PAIN (2) Hyponatremia Code(s): E87.1 - HYPO-OSMOLALITY AND HYPONATREMIA (3) Hypertension Code(s): I10 - ESSENTIAL (PRIMARY) HYPERTENSION
--- NOTE | 2017-04-20 14:48 | PN ---
Progress Note (short form) - Note Progress Note: spoke to dr fernandez to do surgery to remove gall bladder on wednesday midnight NPO cardio clearance ordered spoke to daughter ifrah in detail Problem List - Problems (1) Epigastric abdominal pain Code(s): R10.13 - EPIGASTRIC PAIN (2) CAD (coronary artery disease) Code(s): I25.10 - ATHSCL HEART DISEASE OF [place] CORONARY ARTERY W/O ANG PCTRS (3) Hyperlipidemia Code(s): E78.5 - HYPERLIPIDEMIA, UNSPECIFIED (4) Decreased appetite Code(s): R63.0 - ANOREXIA (5) Hyponatremia Code(s): E87.1 - HYPO-OSMOLALITY AND HYPONATREMIA (6) Rheumatoid arthritis Code(s): M06.9 - RHEUMATOID ARTHRITIS, UNSPECIFIED (7) Depression Code(s): F32.9 - MAJOR DEPRESSIVE DISORDER, SINGLE EPISODE, UNSPECIFIED
--- NOTE | 2017-04-20 15:09 | PN ---
Progress Note (short form) - Note Progress Note: patient is still with abdominal pain will change the pantoprazole to iv protonix plan is for surgery and cardio to reassess patient Problem List - Problems (1) Epigastric abdominal pain Code(s): R10.13 - EPIGASTRIC PAIN (2) CAD (coronary artery disease) Code(s): I25.10 - ATHSCL HEART DISEASE OF [place] CORONARY ARTERY W/O ANG PCTRS (3) Hyperlipidemia Code(s): E78.5 - HYPERLIPIDEMIA, UNSPECIFIED (4) Decreased appetite Code(s): R63.0 - ANOREXIA (5) Hyponatremia Code(s): E87.1 - HYPO-OSMOLALITY AND HYPONATREMIA (6) Rheumatoid arthritis Code(s): M06.9 - RHEUMATOID ARTHRITIS, UNSPECIFIED (7) Depression Code(s): F32.9 - MAJOR DEPRESSIVE DISORDER, SINGLE EPISODE, UNSPECIFIED
--- NOTE | 2017-04-20 16:27 | PN ---
Progress Note (short form) - Note Progress Note: No new events HIDA- chronic cholecystitis Family concerned about having surgery at a later date Would like surgery on this admission if possible Vital Signs Period Temp Pulse Resp BP Sys/[place] Pulse Ox Last 24 Hr 97.8 F-98.7 F 61-79 16-20 116-143/55-72 94 CBC,CMP WBC 4.1 K/mm3 (4.0-10.0) 04/18/17 07:30 RBC 4.21 M/mm3 (3.60-5.2) 04/18/17 07:30 Hgb 13.3 GM/dL (10.7-15.3) 04/18/17 07:30 Hct 39.6 % (32.4-45.2) 04/18/17 07:30 MCV 94.2 fl (80-96) 04/18/17 07:30 MCH 31.7 pg (25.7-33.7) 04/18/17 07:30 MCHC 33.6 g/dl (32.0-36.0) 04/18/17 07:30 RDW 17.5 % (11.6-15.6) H 04/18/17 07:30 Plt Count 198 K/MM3 (134-434) 04/18/17 07:30 MPV 7.3 fl (7.5-11.1) L 04/18/17 07:30 Neutrophils % 32.0 % (42.8-82.8) L D 04/18/17 07:30 Lymphocytes % 52.2 % (8-40) H 04/18/17 07:30 Monocytes % 12.3 % (3.8-10.2) H 04/18/17 07:30 Eosinophils % 2.3 % (0-4.5) 04/18/17 07:30 Basophils % 1.2 % (0-2.0) 04/18/17 07:30 Sodium 133 mmol/L (136-145) L 04/19/17 13:15 Potassium 3.8 mmol/L (3.5-5.1) 04/19/17 13:15 Chloride 95 mmol/L (98-107) L 04/19/17 13:15 Carbon Dioxide 28 mmol/L (21-32) 04/19/17 13:15 Anion Gap 10 (8-16) 04/19/17 13:15 BUN 9 mg/dL (7-18) 04/19/17 13:15 Creatinine 0.6 mg/dL (0.55-1.02) 04/19/17 13:15 Creat Clearance w eGFR > 60 (>60) 04/18/17 07:30 Random Glucose 165 mg/dL (74-106) H D 04/19/17 13:15 Serum Osmolality 275 mosm/kg (278-305) L 04/15/17 20:00 Uric Acid 3.8 mg/dL (2.6-7.2) 04/15/17 20:00 Calcium 9.3 mg/dL (8.5-10.1) 04/19/17 13:15 Phosphorus 2.5 mg/dL (2.5-4.9) 04/17/17 07:00 Magnesium 1.8 mg/dL (1.8-2.4) 04/17/17 07:00 Total Bilirubin 0.5 mg/dL (0.2-1.0) D 04/18/17 07:30 AST 21 U/L (15-37) 04/18/17 07:30 ALT 9 U/L (12-78) L 04/18/17 07:30 Alkaline Phosphatase 88 U/L (45-117) 04/18/17 07:30 Creatine Kinase 58 IU/L (26-192) 04/14/17 07:10 Troponin I 0.02 ng/ml (0.00-0.05) 04/14/17 07:10 Total Protein 7.1 g/dl (6.4-8.2) 04/18/17 07:30 Albumin 2.8 g/dl (3.4-5.0) L 04/18/17 07:30 Triglycerides 54 mg/dL (35-160) D 04/16/17 07:00 Cholesterol 99 mg/dL (50-200) 04/16/17 07:00 Total LDL Cholesterol 43 mg/dL (5-100) 04/16/17 07:00 HDL Cholesterol 52 mg/dL (40-60) D 04/16/17 07:00 Lipase 104 U/L (73-393) 04/13/17 11:08 TSH 1.36 uIU/ml (0.358-3.74) D 04/16/17 07:00 Cortisol AM Sample 1.8 ug/dL (.) 04/16/17 07:00 Cardiac/medical clearance Cholecystectomy once cleared if desired by family Problem List - Problems (1) Cholelithiases Code(s): K80.20 - CALCULUS OF GALLBLADDER W/O CHOLECYSTITIS W/O OBSTRUCTION Qualifiers: Cholelithiasis location: gallbladder Cholecystitis presence: without cholecystitis Biliary obstruction: without biliary obstruction Qualified Code(s): K80.20 - Calculus of gallbladder without cholecystitis without obstruction; K80.20 - Calculus of gallbladder without cholecystitis without obstruction (2) Epigastric abdominal pain Code(s): R10.13 - EPIGASTRIC PAIN
--- NOTE | 2017-04-20 16:50 | PN ---
Progress Note (short form) - Note Progress Note: Chief Complaint: abd pain History of Present Illness: S: minimal abdominal discomfort. Feels well. Is unaware of plan for surgery. no cp, palps, sob, dizziness. States she is active at home and can walk up flight of stairs without sx's or limitations. Current Medications Al Hydroxide/Mg Hydroxide (Mylanta Oral Suspension -) 30 ml PO Q6H PRN PRN Reason: DYSPEPSIA Last Admin: 04/16/17 22:23 Dose: 30 ml Amlodipine Besylate (Norvasc -) 5 mg PO HS [facility] Last Admin: 04/19/17 22:39 Dose: 5 mg Ascorbic Acid (Vitamin C -) 500 mg PO DAILY [facility] Last Admin: 04/20/17 10:32 Dose: 500 mg Atorvastatin Calcium (Lipitor -) 20 mg PO HS [facility] Last Admin: 04/19/17 22:38 Dose: 20 mg Bupropion HCl (Wellbutrin Xl -) 150 mg PO DAILY [facility] Last Admin: 04/20/17 10:32 Dose: 150 mg Cholecalciferol (Vitamin D3 -) 2,000 unit PO DAILY [facility] Last Admin: 04/20/17 10:33 Dose: 2,000 unit Diphenhydramine HCl (Benadryl Injection -) 25 mg IVPB Q6H PRN PRN Reason: FOR ITCHING Last Admin: 04/14/17 07:02 Dose: 25 mg Docusate Sodium (Colace -) 100 mg PO BID PRN PRN Reason: CONSTIPATION Enalapril Maleate (Vasotec -) 20 mg PO HS [facility] Last Admin: 04/13/17 23:38 Dose: Not Given Folic Acid (Folic Acid -) 1 mg PO DAILY [facility] Last Admin: 04/20/17 10:32 Dose: 1 mg Gabapentin (Neurontin -) 600 mg PO DAILY [facility] Last Admin: 04/20/17 10:32 Dose: 600 mg Gemfibrozil (Lopid -) 600 mg PO BID [facility] Last Admin: 04/20/17 10:35 Dose: 600 mg Hydralazine HCl (Apresoline -) 50 mg PO HS [facility] Last Admin: 04/19/17 22:38 Dose: 50 mg Hydralazine HCl (Apresoline -) 25 mg PO DAILY [facility] Last Admin: 04/20/17 10:32 Dose: 25 mg Pantoprazole Sodium 40 mg/ (Sodium Chloride) 100 mls @ 200 mls/hr IVPB DAILY [facility] Levothyroxine Sodium (Synthroid -) 25 mcg PO ACBK [facility] Last Admin: 04/20/17 06:38 Dose: 25 mcg Methotrexate (Mexate -) 20 mg PO Tu@1000 [facility] Last Admin: 04/20/17 10:34 Dose: 20 mg Metoprolol Tartrate (Lopressor -) 75 mg PO HS [facility] Last Admin: 04/13/17 23:38 Dose: Not Given Metoprolol Tartrate (Lopressor -) 50 mg PO DAILY [facility] Last Admin: 04/20/17 10:32 Dose: 50 mg Mirtazapine (Remeron -) 15 mg PO HS [facility] Last Admin: 04/19/17 22:39 Dose: 15 mg Ondansetron HCl (Zofran Injection) 4 mg IVPB Q8H PRN PRN Reason: NAUSEA Last Admin: 04/14/17 20:40 Dose: 4 mg Pantoprazole Sodium (Protonix -) 20 mg PO DAILY [facility] Last Admin: 04/20/17 10:32 Dose: 20 mg Potassium Chloride (K-Dur -) 10 meq PO BID [facility] Last Admin: 04/20/17 10:32 Dose: 10 meq Prednisone (Deltasone -) 5 mg PO DAILY [facility] Last Admin: 04/20/17 10:32 Dose: 5 mg Tramadol HCl (Ultram -) 50 mg PO Q6H PRN PRN Reason: PAIN Last Admin: 04/20/17 15:05 Dose: 50 mg Vital Signs - 24 hr 04/19/17 04/19/17 04/19/17 17:00 18:10 21:00 Temperature 98.7 F 98.6 F Pulse Rate 72 61 Respiratory 20 18 18 Rate Blood Pressure 133/56 143/61 O2 Sat by Pulse 94 L Oximetry (%) 04/19/17 04/20/17 04/20/17 22:00 06:00 09:38 Temperature 98.3 F 97.8 F 98.2 F Pulse Rate 70 69 79 Respiratory 18 18 16 Rate Blood Pressure 135/70 124/72 141/70 O2 Sat by Pulse Oximetry (%) 04/20/17 14:31 Temperature 98.7 F Pulse Rate 62 Respiratory Rate Blood Pressure 116/55 O2 Sat by Pulse Oximetry (%) Intake & Output 04/18/17 04/19/17 04/20/17 04/21/17 07:59 07:59 07:59 07:59 Intake Total 950 1220 615 825 Output Total 2 Balance 950 1220 613 825 Constitutional: Yes: Well Nourished, No Distress, Calm Cardiovascular: Yes: Regular Rate and Rhythm, S1, S2. No: Gallop, Murmur Respiratory: Yes: Regular, CTA Bilaterally (decr sounds diffusely). No: Accessory Muscle Use, Rales, Wheezes Extremities: No: Cold Edema: No Neurological: Yes: Alert. No: Seizure Psychiatric: No: Agitated Labs: CBC, BMP 04/18/17 07:30 04/19/17 13:15 04/20 EKG reviewed: no sig change from admit. ecg 04/13/17: sr, nl intervals, no ischemic changes Assessment/Plan echo 04/2013: nl lv/rv, no sig valve path mibi 04/2013: mod septal ischemia per report a/p: 71 f hx copd, htn, hld, dementia, possible cad (+mibi) here with epigastric pain/nausea for 1 week. pre-op clearance - has possible plan for cholecystectomy. Currently patient states she does not want intervention, would clarify. - Stable from CV perspective, no further testing needed prior to intervention. - RCRI 1-2 depending on type of surgery. Estimated CV risk is low- intermediate. Pt counseled on risk. - will reduce hydralazine dosing to avoid hypotension. will change am metoprolol dose to bid dosing. - + tobacco with desaturation on 6 min walk test. pulm consult at discretion of surgery/anesthesia/pmd. epigastric pain: -gastric erosions noted on egd, likely sec to nsaids--cont GI meds per their recs -+ gallstones, possible surgical plan as above. htn: -bp control complicated by h/o labile bp's, med non-adherence/confusion at times , and h/o marked orthosatic hypotension with syncope in past -has had no syncope/positional LH sx's in long time, off fludrocortisone since 2015 due to spikes in BPs at that time -currently enalapril and evening metoprolol on hold. 04/20 decreasing hydralazine dose to avoid daytime decreases in bp. con't to monitor. hld: -cont statin possible cad: -prior mibi 2012 reported low-risk area of (septal) ischemia and has been managed medically with no angina sx's -pt with extensive atherosclerotic aorta vascular disease -normal lvef -no angina suspected here -cont statin, bb. randall on hold as above. -defer ASA for now given NSAID-related PUD on EGD, consider adding back later once supplemental NSAID analgesics are curtailed at home, and abd sx's resolve on PPI copd with hypoxia, pulm HTN: -recently with marked PA dilation noted on CTA chest -she has known copd -6 minute walk test with + desaturation to 80s% -pt and family declined home O2 due to concerns about risks of canister explosion with her ongoing cig smoking thoracic and abdominal aorta aneurysms: -known ascending aorta aneurysm 4.8cm, and descending aorta aneurysm 4.0cm, both unchanged on 01/02 study -small infrarenal AAA 3.2cm, increased vs 2.7 cm in 2016--to be reimaged at 6 mo (07/04), via office f/u with dr newsome -bp control as doing, complicated as described + cigs: -repeatedly counselled cessation benefits and available modalities as outpt--pt has declined autoimmune peripheral neuropathy: -on IVIG per dr leslie
--- NOTE | 2017-04-20 19:38 | EKG ---
Test Reason : Blood Pressure : / mmHG Vent. Rate : 062 BPM Atrial Rate : 062 BPM P-R Int : 206 ms QRS Dur : 090 ms QT Int : 404 ms P-R-T Axes : -09 003 070 degrees QTc Int : 410 ms NORMAL SINUS RHYTHM ATRIAL ABNORMALITY NONSPECIFIC ST-T ABNORMALITIES ABNORMAL ECG WHEN COMPARED WITH ECG OF 13-APR-2017 11:27, NONSPECIFIC ST AND T WAVE ABNORMALITY IN aVL Confirmed by SHEIKH FREEDOM, VAHID ([id number] on 04/20/2017 7:38:18 PM Referred By: [facility] Confirmed By:VAHID KIRBY MD
[2017-04-20] MEDS: hydrALAZINE HCL 50 MG TABLET (FP) PO SCH (21:51)
[2017-04-20] MEDS: ATORVASTATIN CA 20 MG TABLET (FP) PO SCH (21:52)
[2017-04-20] MEDS: amLODIPine BESYLATE 5 MG TABLET (FP) PO SCH (21:52)
[2017-04-20] MEDS: MIRTAZAPINE 15 MG TABLET (FP) PO SCH (21:53)
[2017-04-21] MEDS: traMADol HCL 50 MG TABLET PO PRN ×4 (04:22→22:30)
[2017-04-21] MEDS: LEVOTHYROXINE NA 25 MCG TABLET (FP) PO SCH (06:46)
[2017-04-21 08:09] LABS: BASOPHIL 1.2 % (0-2.0); EOSINOPHIL 2.4 % (0-4.5); MCH 31.6 pg (25.7-33.7); MCHC 33.1 g/dl (32.0-36.0); MEAN CELL VOLUME 95.4 fl (80-96); MEAN PLT VOLUME 7.2 fl (7.5-11.1); NEUTROPHILS 36.3 % (42.8-82.8); PLATELET COUNT 253 K/MM3 (134-434)
[2017-04-21 08:44] LABS: ANION GAP 6 (8-16); CALCIUM 9.1 mg/dL (8.5-10.1); CO2 30 mmol/L (21-32); CREATININE 0.7 mg/dL (0.55-1.02); GLUCOSE,RANDOM 90 mg/dL (74-106); INR 1.03 (0.82-1.09); PROTHROMBIN TIME (PATIENT) 11.3 SEC (9.98-11.88)
[2017-04-21] MEDS: FOLIC ACID 1 MG TABLET (FP) PO SCH (09:30)
[2017-04-21] MEDS: POTASSIUM CHLORIDE TABS 10 MEQ TABLET.ER (FP) PO SCH ×2 (09:31→20:59)
[2017-04-21] MEDS: ASCORBIC ACID 500 MG TABLET (FP) PO SCH (09:31)
[2017-04-21] MEDS: predniSONE 5 MG TABLET (UD) PO SCH (09:32)
[2017-04-21] MEDS: hydrALAZINE HCL 10 MG TABLET PO SCH ×3 (09:32→20:59)
[2017-04-21] MEDS: GABAPENTIN 300 MG CAPSULE (FP) PO SCH (09:32)
[2017-04-21] MEDS: CHOLECALCIFEROL (VITAMIN D3) 1,000 UNIT TABLET (FP) PO SCH (09:32)
[2017-04-21] MEDS: METOPROLOL TARTRATE 25 MG TABLET (FP) PO SCH ×3 (09:33→21:00)
--- NOTE | 2017-04-21 11:51 | SPA.PREOP ---
- PRE-OP NOTE Dx: Chronic Cholecystitis Planned Procedure: Laprascopic cholecystectomy Surgeon: Manisha Consent: To be obtained by surgeon at bedside Last Vital Signs Temp Pulse Resp BP Pulse Ox 97.9 F 84 20 108/69 95 04/21/17 09:29 04/21/17 09:29 04/21/17 09:29 04/21/17 09:29 04/20/17 21:00 Lab Results WBC 5.0 K/mm3 (4.0-10.0) 04/21/17 06:45 RBC 4.33 M/mm3 (3.60-5.2) 04/21/17 06:45 Hgb 13.7 GM/dL (10.7-15.3) 04/21/17 06:45 Hct 41.3 % (32.4-45.2) 04/21/17 06:45 MCV 95.4 fl (80-96) 04/21/17 06:45 MCHC 33.1 g/dl (32.0-36.0) 04/21/17 06:45 RDW 18.0 % (11.6-15.6) H 04/21/17 06:45 Plt Count 253 K/MM3 (134-434) D 04/21/17 06:45 Sodium 133 mmol/L (136-145) L 04/21/17 06:45 Potassium 4.1 mmol/L (3.5-5.1) 04/21/17 06:45 Chloride 97 mmol/L (98-107) L 04/21/17 06:45 Carbon Dioxide 30 mmol/L (21-32) 04/21/17 06:45 Anion Gap 6 (8-16) L 04/21/17 06:45 BUN 10 mg/dL (7-18) 04/21/17 06:45 Creatinine 0.7 mg/dL (0.55-1.02) 04/21/17 06:45 Random Glucose 90 mg/dL (74-106) D 04/21/17 06:45 Calcium 9.1 mg/dL (8.5-10.1) 04/21/17 06:45 Blood Type O POSITIVE 04/21/17 08:27 Antibody Screen Negative 04/21/17 07:50 INR 1.03 (0.82-1.09) 04/21/17 06:45 Laboratory Tests 04/21/17 08:27 Blood Type O POSITIVE - IMAGING EKG: Report Reviewed (NSR at 62 BBM) Other: Report Reviewed (Hida scan showed delayed filling of small bowel.) - ASSESSMENT/PLAN 1. Make NPO after midnight except po meds 2. GI/DVT PPX 3. Cardiac clearance in chart see cardiology note on 04/20/17 Visit type - Case Type Case Type: ED Admission - Emergency Emergency Visit: Yes ED Registration Date: 04/20/17 Care time: The patient presented to the Emergency Department on the above date and was hospitalized for further evaluation of their emergent condition. - New patient This patient is new to me today: Yes Date on this admission: 04/21/17
[2017-04-21] MEDS ORDERED: PT OWN MED DRAWER 7, Y5N ONE ×2 (12:30→20:46)
[2017-04-21] MEDS: GEMFIBROZIL 600 MG TABLET (FP) PO SCH ×2 (12:33→20:59)
--- NOTE | 2017-04-21 13:14 | PN ---
Progress Note (short form) - Note Progress Note: Renal follow up for hyponatremia Pt seen and examined at the bedside awake and alert no acute complaints Vital Signs Temperature 97.9 F 04/21/17 09:29 Pulse Rate 84 04/21/17 09:29 Respiratory Rate 20 04/21/17 09:29 Blood Pressure 108/69 04/21/17 09:29 O2 Sat by Pulse Oximetry (%) 95 04/20/17 21:00 Intake & Output 04/18/17 04/19/17 04/20/17 04/21/17 23:59 23:59 23:59 23:59 Intake Total 3555 204 3464 520 Output Total 2 Balance 6377 208 8136 520 NAD, awake and alert RRR CTA soft NT/ND no edema CBC, BMP 04/21/17 06:45 04/21/17 06:45 Current Medications Al Hydroxide/Mg Hydroxide (Mylanta Oral Suspension -) 30 ml PO Q6H PRN PRN Reason: DYSPEPSIA Last Admin: 04/16/17 22:23 Dose: 30 ml Amlodipine Besylate (Norvasc -) 5 mg PO HS [facility] Last Admin: 04/20/17 21:52 Dose: 5 mg Ascorbic Acid (Vitamin C -) 500 mg PO DAILY [facility] Last Admin: 04/21/17 09:31 Dose: 500 mg Atorvastatin Calcium (Lipitor -) 20 mg PO HS [facility] Last Admin: 04/20/17 21:52 Dose: 20 mg Bupropion HCl (Wellbutrin Xl -) 150 mg PO DAILY [facility] Last Admin: 04/21/17 09:31 Dose: 150 mg Cholecalciferol (Vitamin D3 -) 2,000 unit PO DAILY [facility] Last Admin: 04/21/17 09:32 Dose: 2,000 unit Diphenhydramine HCl (Benadryl Injection -) 25 mg IVPB Q6H PRN PRN Reason: FOR ITCHING Last Admin: 04/14/17 07:02 Dose: 25 mg Docusate Sodium (Colace -) 100 mg PO BID PRN PRN Reason: CONSTIPATION Enalapril Maleate (Vasotec -) 20 mg PO HS [facility] Last Admin: 04/13/17 23:38 Dose: Not Given Folic Acid (Folic Acid -) 1 mg PO DAILY [facility] Last Admin: 04/21/17 09:30 Dose: 1 mg Gabapentin (Neurontin -) 600 mg PO DAILY [facility] Last Admin: 04/21/17 09:32 Dose: 600 mg Gemfibrozil (Lopid -) 600 mg PO BID [facility] Last Admin: 04/21/17 12:33 Dose: 600 mg Hydralazine HCl (Apresoline -) 20 mg PO BID [facility] Last Admin: 04/21/17 09:32 Dose: Not Given Pantoprazole Sodium 40 mg/ (Sodium Chloride) 100 mls @ 200 mls/hr IVPB DAILY [facility] Levothyroxine Sodium (Synthroid -) 25 mcg PO ACBK [facility] Last Admin: 04/21/17 06:46 Dose: 25 mcg Methotrexate (Mexate -) 20 mg PO Tu@1000 [facility] Last Admin: 04/20/17 10:34 Dose: 20 mg Metoprolol Tartrate (Lopressor -) 25 mg PO BID [facility] Last Admin: 04/21/17 09:33 Dose: Not Given Mirtazapine (Remeron -) 15 mg PO HS [facility] Last Admin: 04/20/17 21:53 Dose: 15 mg Ondansetron HCl (Zofran Injection) 4 mg IVPB Q8H PRN PRN Reason: NAUSEA Last Admin: 04/14/17 20:40 Dose: 4 mg Potassium Chloride (K-Dur -) 10 meq PO BID [facility] Last Admin: 04/21/17 09:31 Dose: 10 meq Prednisone (Deltasone -) 5 mg PO DAILY [facility] Last Admin: 04/21/17 09:32 Dose: 5 mg Tramadol HCl (Ultram -) 50 mg PO Q6H PRN PRN Reason: PAIN Last Admin: 04/21/17 09:30 Dose: 50 mg 71 year old woman with PMhx of Hypertension, Asthma, COPD, Peripheral Neuropathy, TIA, RA, Cutaneous Vasculitis who presented from home with complaints of epigastric pain and N/V and found to have hyponatremia. #Hyponatremia with evidence of excessive ADH Urine studies show a high urine Na, High Urine OSM, Normal serum uric acid, low serum osmolarity Studies are indicative of excessive ADH release in the setting of hypoosmolar hyponatremia Serum Na is stable at 133 continue to trend off Na tabs if pt gets IVF it should be normal saline and Na levels should be monitored closely #Epigastric Pain wit N/V HIDA showed chronic cholecystitis for OR tomorrow #Hypertension Bp is at [facility] presently continue Norvasc and Metoprolol D/c Lasix Thank you Will follow [facility] Problem List - Problems (1) Epigastric abdominal pain Code(s): R10.13 - EPIGASTRIC PAIN (2) Hyponatremia Code(s): E87.1 - HYPO-OSMOLALITY AND HYPONATREMIA (3) Hypertension Code(s): I10 - ESSENTIAL (PRIMARY) HYPERTENSION
[2017-04-21] MEDS: PANTOPRAZOLE SODIUM 40 MG in SODIUM CHLORIDE 100 ML IVPB SCH (13:17)
--- NOTE | 2017-04-21 17:37 | PN ---
Progress Note, Physician Chief Complaint: abdominal pain, nausea had EGD yesterday- showed erosions secondary to NSAIDs History of Present Illness: NAD, in bed, self ambulatory, fall risk, forgetfull knows month, day, and that she is going for gallbladder surgery in AM - Current Medication List Current Medications: Active Medications Al Hydroxide/Mg Hydroxide (Mylanta Oral Suspension -) 30 ml PO Q6H PRN PRN Reason: DYSPEPSIA Last Admin: 04/16/17 22:23 Dose: 30 ml Amlodipine Besylate (Norvasc -) 5 mg PO HS [facility] Last Admin: 04/20/17 21:52 Dose: 5 mg Ascorbic Acid (Vitamin C -) 500 mg PO DAILY [facility] Last Admin: 04/21/17 09:31 Dose: 500 mg Atorvastatin Calcium (Lipitor -) 20 mg PO HS [facility] Last Admin: 04/20/17 21:52 Dose: 20 mg Bupropion HCl (Wellbutrin Xl -) 150 mg PO DAILY [facility] Last Admin: 04/21/17 09:31 Dose: 150 mg Cholecalciferol (Vitamin D3 -) 2,000 unit PO DAILY [facility] Last Admin: 04/21/17 09:32 Dose: 2,000 unit Diphenhydramine HCl (Benadryl Injection -) 25 mg IVPB Q6H PRN PRN Reason: FOR ITCHING Last Admin: 04/14/17 07:02 Dose: 25 mg Docusate Sodium (Colace -) 100 mg PO BID PRN PRN Reason: CONSTIPATION Enalapril Maleate (Vasotec -) 20 mg PO [facility] Last Admin: 04/13/17 23:38 Dose: Not Given Folic Acid (Folic Acid -) 1 mg PO DAILY [facility] Last Admin: 04/21/17 09:30 Dose: 1 mg Gabapentin (Neurontin -) 600 mg PO DAILY [facility] Last Admin: 04/21/17 09:32 Dose: 600 mg Gemfibrozil (Lopid -) 600 mg PO BID [facility] Last Admin: 04/21/17 12:33 Dose: 600 mg Hydralazine HCl (Apresoline -) 20 mg PO BID [facility] Last Admin: 04/21/17 13:19 Dose: 20 mg Pantoprazole Sodium 40 mg/ (Sodium Chloride) 100 mls @ 200 mls/hr IVPB DAILY [facility] Last Admin: 04/21/17 13:17 Dose: 200 mls/hr Levothyroxine Sodium (Synthroid -) 25 mcg PO ACBK [facility] Last Admin: 04/21/17 06:46 Dose: 25 mcg Methotrexate (Mexate -) 20 mg PO Tu@1000 [facility] Last Admin: 04/20/17 10:34 Dose: 20 mg Metoprolol Tartrate (Lopressor -) 25 mg PO BID [facility] Last Admin: 04/21/17 13:17 Dose: 25 mg Mirtazapine (Remeron -) 15 mg PO HS [facility] Last Admin: 04/20/17 21:53 Dose: 15 mg Ondansetron HCl (Zofran Injection) 4 mg IVPB Q8H PRN PRN Reason: NAUSEA Last Admin: 04/14/17 20:40 Dose: 4 mg Potassium Chloride (K-Dur -) 10 meq PO BID [facility] Last Admin: 04/21/17 09:31 Dose: 10 meq Prednisone (Deltasone -) 5 mg PO DAILY [facility] Last Admin: 04/21/17 09:32 Dose: 5 mg Tramadol HCl (Ultram -) 50 mg PO Q6H PRN PRN Reason: PAIN Last Admin: 04/21/17 17:03 Dose: 50 mg - Objective Vital Signs: Vital Signs Temperature 98.1 F 04/21/17 13:12 Pulse Rate 99 H 04/21/17 13:12 Respiratory Rate 20 04/21/17 13:12 Blood Pressure 141/72 04/21/17 13:12 O2 Sat by Pulse Oximetry (%) 95 04/21/17 11:00 Constitutional: Yes: Well Nourished, No Distress, Calm Cardiovascular: Yes: Regular Rate and Rhythm Respiratory: Yes: Regular Gastrointestinal: Yes: Normal Bowel Sounds Edema: Yes Edema: LLE: Trace, RLE: Trace Peripheral Pulses WNL: Yes Neurological: Yes: Alert Psychiatric: Yes: Alert Labs: CBC, BMP 04/21/17 06:45 04/21/17 06:45 INR, PTT INR 1.03 (0.82-1.09) 04/21/17 06:45 Problem List - Problems (1) CAD (coronary artery disease) Assessment/Plan: BB, ACEI, hydralazine no aspirin til gastric erosion are healed patient is on ppi Code(s): I25.10 - ATHSCL HEART DISEASE OF [place] CORONARY ARTERY W/O ANG PCTRS (2) Epigastric abdominal pain Assessment/Plan: -secondary to gastric erosion vs cholelithiasis -seen by GI -PPI Code(s): R10.13 - EPIGASTRIC PAIN (3) Cholelithiases Assessment/Plan: -seen by GI surgery -scheduled for cholecystectomy in AM -NPO past midnight -patient able to give consent -Cleared from Cardiology perspective Code(s): K80.20 - CALCULUS OF GALLBLADDER W/O CHOLECYSTITIS W/O OBSTRUCTION Qualifiers: Cholelithiasis location: gallbladder Cholecystitis presence: without cholecystitis Biliary obstruction: without biliary obstruction Qualified Code(s): K80.20 - Calculus of gallbladder without cholecystitis without obstruction; K80.20 - Calculus of gallbladder without cholecystitis without obstruction (4) Decreased appetite Assessment/Plan: -improved Code(s): R63.0 - ANOREXIA (5) Nausea Assessment/Plan: resolved Code(s): R11.0 - NAUSEA (6) Gastric erosion determined by endoscopy Assessment/Plan: -Has RA, has been taking anti-inflammatory for years for pain management -recommend tramadol, said she has tried her husbands Tramadol which helped. Code(s): K25.9 - GASTRIC ULCER, UNSP ACUTE OR CHRONIC, W/O HEMOR OR PERF (7) Hyponatremia Assessment/Plan: -improved -on NACL tabs -nephrology on board Code(s): E87.1 - HYPO-OSMOLALITY AND HYPONATREMIA (8) Leukocytopenia Assessment/Plan: resolved Code(s): D72.819 - DECREASED WHITE BLOOD CELL COUNT, UNSPECIFIED Assessment/Plan see problem list
[2017-04-21] MEDS: MIRTAZAPINE 15 MG TABLET (FP) PO SCH (20:59)
[2017-04-21] MEDS: amLODIPine BESYLATE 5 MG TABLET (FP) PO SCH (20:59)
[2017-04-21] MEDS: ATORVASTATIN CA 20 MG TABLET (FP) PO SCH (20:59)
[2017-04-22] MEDS: LEVOTHYROXINE NA 25 MCG TABLET (FP) PO SCH (06:43)
[2017-04-22 07:34] LABS: EOSINOPHIL 1.6 % (0-4.5); MCH 31.4 pg (25.7-33.7); MCHC 33.2 g/dl (32.0-36.0); MEAN CELL VOLUME 94.7 fl (80-96); MEAN PLT VOLUME 7.4 fl (7.5-11.1); NEUTROPHILS 56.4 % (42.8-82.8); PLATELET COUNT 261 K/MM3 (134-434); RDW 17.2 % (11.6-15.6); WHITE BLOOD COUNT 6.1 K/mm3 (4.0-10.0)
[2017-04-22 08:00] LABS: ANION GAP 11 (8-16); CALCIUM 9.6 mg/dL (8.5-10.1); CO2 28 mmol/L (21-32); GLUCOSE,RANDOM 83 mg/dL (74-106)
[2017-04-22 08:02] LABS: CREATININE 0.6 mg/dL (0.55-1.02); PHOSPHOROUS 3.6 mg/dL (2.5-4.9)
[2017-04-22] MEDS ORDERED: PT OWN MED DRAWER 7, Y5N ONE (09:52)
[2017-04-22] MEDS: POTASSIUM CHLORIDE TABS 10 MEQ TABLET.ER (FP) PO SCH ×2 (10:00→21:27)
[2017-04-22] MEDS: ASCORBIC ACID 500 MG TABLET (FP) PO SCH (10:00)
[2017-04-22] MEDS: CHOLECALCIFEROL (VITAMIN D3) 1,000 UNIT TABLET (FP) PO SCH (10:00)
[2017-04-22] MEDS: FOLIC ACID 1 MG TABLET (FP) PO SCH (10:00)
[2017-04-22] MEDS: predniSONE 5 MG TABLET (UD) PO SCH (10:00)
[2017-04-22] MEDS: GABAPENTIN 300 MG CAPSULE (FP) PO SCH (10:00)
[2017-04-22] MEDS: GEMFIBROZIL 600 MG TABLET (FP) PO SCH (10:00)
[2017-04-22] MEDS: PANTOPRAZOLE SODIUM 40 MG in SODIUM CHLORIDE 100 ML IVPB SCH (10:01)
--- NOTE | 2017-04-22 10:38 | PN ---
Progress Note, Physician Chief Complaint: abdominal pain, nausea had EGD yesterday- showed erosions secondary to NSAIDs History of Present Illness: NAD, in bed, self ambulatory, fall risk, forgetfull knows month, day, and that she is going for gallbladder surgery - Current Medication List Current Medications: Active Medications Al Hydroxide/Mg Hydroxide (Mylanta Oral Suspension -) 30 ml PO Q6H PRN PRN Reason: DYSPEPSIA Last Admin: 04/16/17 22:23 Dose: 30 ml Amlodipine Besylate (Norvasc -) 5 mg PO HS [facility] Last Admin: 04/21/17 20:59 Dose: 5 mg Ascorbic Acid (Vitamin C -) 500 mg PO DAILY [facility] Last Admin: 04/22/17 10:00 Dose: Not Given Atorvastatin Calcium (Lipitor -) 20 mg PO [facility] Last Admin: 04/21/17 20:59 Dose: 20 mg Bupropion HCl (Wellbutrin Xl -) 150 mg PO DAILY [facility] Last Admin: 04/22/17 10:01 Dose: Not Given Cholecalciferol (Vitamin D3 -) 2,000 unit PO DAILY [facility] Last Admin: 04/22/17 10:00 Dose: Not Given Diphenhydramine HCl (Benadryl Injection -) 25 mg IVPB Q6H PRN PRN Reason: FOR ITCHING Last Admin: 04/14/17 07:02 Dose: 25 mg Docusate Sodium (Colace -) 100 mg PO BID PRN PRN Reason: CONSTIPATION Enalapril Maleate (Vasotec -) 20 mg PO [facility] Last Admin: 04/13/17 23:38 Dose: Not Given Folic Acid (Folic Acid -) 1 mg PO DAILY [facility] Last Admin: 04/22/17 10:00 Dose: Not Given Gabapentin (Neurontin -) 600 mg PO DAILY [facility] Last Admin: 04/22/17 10:00 Dose: Not Given Gemfibrozil (Lopid -) 600 mg PO BID [facility] Last Admin: 04/22/17 10:00 Dose: Not Given Hydralazine HCl (Apresoline -) 20 mg PO BID [facility] Last Admin: 04/21/17 20:59 Dose: 20 mg Pantoprazole Sodium 40 mg/ (Sodium Chloride) 100 mls @ 200 mls/hr IVPB DAILY [facility] Last Admin: 04/22/17 10:01 Dose: 200 mls/hr Levothyroxine Sodium (Synthroid -) 25 mcg PO ACBK [facility] Last Admin: 04/22/17 06:43 Dose: 25 mcg Methotrexate (Mexate -) 20 mg PO Tu@1000 [facility] Last Admin: 04/20/17 10:34 Dose: 20 mg Metoprolol Tartrate (Lopressor -) 25 mg PO BID [facility] Last Admin: 04/21/17 21:00 Dose: 25 mg Mirtazapine (Remeron -) 15 mg PO HS [facility] Last Admin: 04/21/17 20:59 Dose: 15 mg Ondansetron HCl (Zofran Injection) 4 mg IVPB Q8H PRN PRN Reason: NAUSEA Last Admin: 04/14/17 20:40 Dose: 4 mg Potassium Chloride (K-Dur -) 10 meq PO BID [facility] Last Admin: 04/22/17 10:00 Dose: Not Given Prednisone (Deltasone -) 5 mg PO DAILY [facility] Last Admin: 04/22/17 10:00 Dose: Not Given Tramadol HCl (Ultram -) 50 mg PO Q6H PRN PRN Reason: PAIN Last Admin: 04/21/17 22:30 Dose: 50 mg - Objective Vital Signs: Vital Signs Temperature 98.5 F 04/22/17 06:00 Pulse Rate 68 04/22/17 06:00 Respiratory Rate 18 04/22/17 06:00 Blood Pressure 122/55 04/22/17 06:00 O2 Sat by Pulse Oximetry (%) 95 04/21/17 21:00 Constitutional: Yes: Well Nourished, No Distress, Calm Cardiovascular: Yes: Regular Rate and Rhythm Respiratory: Yes: Regular Edema: Yes Edema: LLE: Trace, RLE: Trace Peripheral Pulses WNL: Yes Neurological: Yes: Alert, Pre-Existing Deficit Psychiatric: Yes: Alert Labs: CBC, BMP 04/22/17 06:05 04/22/17 06:05 INR, PTT INR 1.03 (0.82-1.09) 04/21/17 06:45 Problem List - Problems (1) CAD (coronary artery disease) Assessment/Plan: BB, ACEI, hydralazine no aspirin til gastric erosion are healed patient is on ppi Code(s): I25.10 - ATHSCL HEART DISEASE OF [place] CORONARY ARTERY W/O ANG PCTRS (2) Epigastric abdominal pain Assessment/Plan: -secondary to gastric erosion vs cholelithiasis -seen by GI -PPI Code(s): R10.13 - EPIGASTRIC PAIN (3) Cholelithiases Assessment/Plan: -seen by GI surgery -scheduled for cholecystectomy in AM -NPO past midnight -patient able to give consent -Cleared from Cardiology perspective Code(s): K80.20 - CALCULUS OF GALLBLADDER W/O CHOLECYSTITIS W/O OBSTRUCTION Qualifiers: Cholelithiasis location: gallbladder Cholecystitis presence: without cholecystitis Biliary obstruction: without biliary obstruction Qualified Code(s): K80.20 - Calculus of gallbladder without cholecystitis without obstruction; K80.20 - Calculus of gallbladder without cholecystitis without obstruction (4) Decreased appetite Assessment/Plan: -improved Code(s): R63.0 - ANOREXIA (5) Nausea Assessment/Plan: resolved Code(s): R11.0 - NAUSEA (6) Gastric erosion determined by endoscopy Assessment/Plan: -Has RA, has been taking anti-inflammatory for years for pain management -recommend tramadol, said she has tried her husbands Tramadol which helped. Code(s): K25.9 - GASTRIC ULCER, UNSP ACUTE OR CHRONIC, W/O HEMOR OR PERF (7) Hyponatremia Assessment/Plan: -improved -on NACL tabs -nephrology on board Code(s): E87.1 - HYPO-OSMOLALITY AND HYPONATREMIA (8) Leukocytopenia Assessment/Plan: resolved Code(s): D72.819 - DECREASED WHITE BLOOD CELL COUNT, UNSPECIFIED
[2017-04-22] MEDS: METOPROLOL TARTRATE 25 MG TABLET (FP) PO SCH ×2 (11:35→21:27)
[2017-04-22] MEDS: hydrALAZINE HCL 10 MG TABLET PO SCH ×2 (11:35→21:28)
--- NOTE | 2017-04-22 15:09 | PN ---
Progress Note (short form) - Note Progress Note: Renal follow up for hyponatremia Pt seen and examined at the bedside no acute complaints for OR today no lethargy, weakness, N/V Vital Signs Temperature 97.4 F L 04/22/17 14:38 Pulse Rate 68 04/22/17 14:38 Respiratory Rate 18 04/22/17 10:00 Blood Pressure 132/65 04/22/17 14:38 O2 Sat by Pulse Oximetry (%) 95 04/21/17 21:00 Intake & Output 04/19/17 04/20/17 04/21/17 04/22/17 23:59 23:59 23:59 23:59 Intake Total 695 1745 1760 0 Output Total 2 Balance 695 1743 1760 0 NAD, awake and alert RRR CTA soft NT/ND no edema CBC, BMP 04/22/17 06:05 04/22/17 06:05 Current Medications Al Hydroxide/Mg Hydroxide (Mylanta Oral Suspension -) 30 ml PO Q6H PRN PRN Reason: DYSPEPSIA Last Admin: 04/16/17 22:23 Dose: 30 ml Amlodipine Besylate (Norvasc -) 5 mg PO [facility] Last Admin: 04/21/17 20:59 Dose: 5 mg Ascorbic Acid (Vitamin C -) 500 mg PO DAILY [facility] Last Admin: 04/22/17 10:00 Dose: Not Given Atorvastatin Calcium (Lipitor -) 20 mg PO HS [facility] Last Admin: 04/21/17 20:59 Dose: 20 mg Bupropion HCl (Wellbutrin Xl -) 150 mg PO DAILY [facility] Last Admin: 04/22/17 10:01 Dose: Not Given Cholecalciferol (Vitamin D3 -) 2,000 unit PO DAILY [facility] Last Admin: 04/22/17 10:00 Dose: Not Given Diphenhydramine HCl (Benadryl Injection -) 25 mg IVPB Q6H PRN PRN Reason: FOR ITCHING Last Admin: 04/14/17 07:02 Dose: 25 mg Docusate Sodium (Colace -) 100 mg PO BID PRN PRN Reason: CONSTIPATION Enalapril Maleate (Vasotec -) 20 mg PO HS [facility] Last Admin: 04/13/17 23:38 Dose: Not Given Folic Acid (Folic Acid -) 1 mg PO DAILY [facility] Last Admin: 04/22/17 10:00 Dose: Not Given Gabapentin (Neurontin -) 600 mg PO DAILY [facility] Last Admin: 04/22/17 10:00 Dose: Not Given Gemfibrozil (Lopid -) 600 mg PO BID [facility] Last Admin: 04/22/17 10:00 Dose: Not Given Hydralazine HCl (Apresoline -) 20 mg PO BID [facility] Last Admin: 04/22/17 11:35 Dose: 20 mg Pantoprazole Sodium 40 mg/ (Sodium Chloride) 100 mls @ 200 mls/hr IVPB DAILY [facility] Last Admin: 04/22/17 10:01 Dose: 200 mls/hr Levothyroxine Sodium (Synthroid -) 25 mcg PO ACBK [facility] Last Admin: 04/22/17 06:43 Dose: 25 mcg Methotrexate (Mexate -) 20 mg PO Tu@1000 [facility] Last Admin: 04/20/17 10:34 Dose: 20 mg Metoprolol Tartrate (Lopressor -) 25 mg PO BID [facility] Last Admin: 04/22/17 11:35 Dose: 25 mg Mirtazapine (Remeron -) 15 mg PO HS [facility] Last Admin: 04/21/17 20:59 Dose: 15 mg Ondansetron HCl (Zofran Injection) 4 mg IVPB Q8H PRN PRN Reason: NAUSEA Last Admin: 04/14/17 20:40 Dose: 4 mg Potassium Chloride (K-Dur -) 10 meq PO BID [facility] Last Admin: 04/22/17 10:00 Dose: Not Given Prednisone (Deltasone -) 5 mg PO DAILY [facility] Last Admin: 04/22/17 10:00 Dose: Not Given Tramadol HCl (Ultram -) 50 mg PO Q6H PRN PRN Reason: PAIN Last Admin: 04/21/17 22:30 Dose: 50 mg 71 year old woman with PMhx of Hypertension, Asthma, COPD, Peripheral Neuropathy, TIA, RA, Cutaneous Vasculitis who presented from home with complaints of epigastric pain and N/V and found to have hyponatremia. #Hyponatremia with evidence of excessive ADH Urine studies show a high urine Na, High Urine OSM, Normal serum uric acid, low serum osmolarity Studies are indicative of excessive ADH release in the setting of hypoosmolar hyponatremia sodium stable at this time continue fluid restriction trend na daily if IVF needed please use NS #Epigastric Pain wit N/V HIDA showed chronic cholecystitis for OR today #Hypertension Bp is at [facility] presently continue Norvasc and Metoprolol D/c Lasix Thank you Will follow [facility] Problem List - Problems (1) Epigastric abdominal pain Code(s): R10.13 - EPIGASTRIC PAIN (2) Hyponatremia Code(s): E87.1 - HYPO-OSMOLALITY AND HYPONATREMIA (3) Hypertension Code(s): I10 - ESSENTIAL (PRIMARY) HYPERTENSION
[2017-04-22] MEDS ORDERED: BUPIVACAINE HCL/PF 0.5% (5MG/ML) 10 ML VIAL ONE (16:12)
--- NOTE | 2017-04-22 16:22 | PN ---
Progress Note (short form) - Note Progress Note: No acute events Pain controlled Vital Signs Period Temp Pulse Resp BP Sys/[place]illas Pulse Ox Last 24 Hr 97.4 F-98.9 F 60-79 18-18 115-143/55-72 95 Abd soft, ND CBC, BMP 04/22/17 06:05 04/22/17 06:05 For laparoscopic cholecystectomy possible open Risks and benefits discussed with patient and Understand and agree and would like to proceed with surgery Problem List - Problems (1) Cholelithiases Code(s): K80.20 - CALCULUS OF GALLBLADDER W/O CHOLECYSTITIS W/O OBSTRUCTION Qualifiers: Cholelithiasis location: gallbladder Cholecystitis presence: without cholecystitis Biliary obstruction: without biliary obstruction Qualified Code(s): K80.20 - Calculus of gallbladder without cholecystitis without obstruction; K80.20 - Calculus of gallbladder without cholecystitis without obstruction (2) Epigastric abdominal pain Code(s): R10.13 - EPIGASTRIC PAIN
[2017-04-22] MEDS ORDERED: LIDOCAINE HCL/PF 2% SDV 5ML VIAL ONE (16:38)
[2017-04-22] MEDS ORDERED: ROCURONIUM BROMIDE 50 MG/5 ML VIAL ONE (16:39)
[2017-04-22] MEDS ORDERED: MIDAZOLAM HCL 2 MG/2 ML SINGLE DOSE VIAL ONE (16:39)
[2017-04-22] MEDS ORDERED: ceFAZolin SODIUM 1 GM VIAL IVPB ONE (16:59)
[2017-04-22] MEDS ORDERED: DEXAMETHASONE SOD PHOSPHATE 4 MG/1 ML VIAL ONE (17:01)
[2017-04-22] MEDS ORDERED: ceFAZolin SODIUM 1 GM VIAL ONE (17:01)
[2017-04-22] MEDS ORDERED: ONDANSETRON 4 MG/2 ML VIAL ONE ×3 (17:01→18:26)
[2017-04-22] MEDS ORDERED: NEOSTIGMINE METHYLSULFATE 0.5 MG/ML - 10 ML MDV ONE (17:57)
[2017-04-22] MEDS ORDERED: BUPIVACAINE HCL/PF 0.5% (5MG/ML) 10 ML VIAL IJ ONE ×2 (17:58)
--- NOTE | 2017-04-22 18:02 | OP ---
Operative Note - Note: Operative Date: 04/22/17 Pre-Operative Diagnosis: Acute on chronic cholecystitis Operation: Laparoscopic cholecystectomy. Umbilical hernia repair Post-Operative Diagnosis: Other (Acute on chronic cholecystitis, umbilical hernia) Surgeon: Issa Dyer Crop Quantitative Geneticist: Adan Geronimo Anesthesia: General Specimens Removed: Gallbladder Estimated Blood Loss (mls): 30 Operative Report Dictated: Yes
[2017-04-22] MEDS ORDERED: ESMOLOL HCL 10 ML ONE (18:04)
[2017-04-22] MEDS ORDERED: ONDANSETRON 4 MG/2 ML VIAL IVPUSH PRN (18:27)
[2017-04-22] MEDS ORDERED: LACTATED RINGERS SOLUTION 1,000 ML IV SCH (18:30)
[2017-04-22] MEDS ORDERED: DOCUSATE SODIUM 100 MG CAPSULE (FP) PO PRN (18:47)
[2017-04-22] MEDS ORDERED: ONDANSETRON 4 MG/2 ML VIAL IVPB PRN (18:47)
[2017-04-22] MEDS ORDERED: MAG HYDROX/AL HYDROX/SIMETH 30 ML UNIT-DOSE CUP PO PRN (18:47)
--- NOTE | 2017-04-22 19:05 | SPEC ---
DATE OF OPERATION: 04/22/2017 SURGEON: Issa Dyer M.D. DIRECTOR OF ENTERPRISE ARCHITECTURE: Adan Geronimo M.D. PREOPERATIVE DIAGNOSIS: Acute and chronic cholecystitis. POSTOPERATIVE DIAGNOSIS: Acute and chronic cholecystitis and umbilical hernia. PROCEDURE: Laparoscopic cholecystectomy and umbilical hernia repair. ESTIMATED BLOOD LOSS: 30 mL. DRAINS: None. ANESTHESIA: GT. REASON FOR THE PROCEDURE: This is a 71-year-old female who presents to the hospital for abdominal pain. She had workup including endoscopy, ultrasound, and HIDA scan. HIDA scan demonstrated chronic cholecystitis which was deemed the likely cause of part of her abdominal pain. The family decided they would like the gallbladder removed because of the chronic cholecystitis. She was then consented for a laparoscopic, possible open cholecystectomy. RISKS AND BENEFITS: The risks and benefits of a laparoscopic, possible open cholecystectomy were explained. These included bleeding, infection, hernia, IL, DVT, PE, injury to surrounding structures including the liver, colon, bowel, bile ducts, vessel injury, nerve injury, bile leak, and retained stones as some of the possible complications. The patient understood and signed informed consents. DESCRIPTION OF PROCEDURE: The patient was placed supine on the operating room table. The patient underwent general endotracheal intubation. The abdomen was prepped and draped in the usual sterile fashion. A timeout was performed. A periumbilical incision was made, and a 5-mm optical trocar was inserted under direct visualization with the laparoscope. Pneumoperitoneum was then established. Subsequently, a 5-mm trocar was placed in the subxiphoid area and two 5-mm trocars were placed in the right upper quadrant. The 5-mm trocar at the periumbilical region was removed and a 10-mm trocar was inserted. The patient was placed in reverse Trendelenburg, right side up position. The gallbladder was noted and was retracted cephalad and laterally. Any overlying omental adhesions were carefully dissected. The peritoneum was dissected using electrocautery. The cystic duct followed by the cystic artery were circumferentially dissected, clipped and transected. The gallbladder was removed off the liver bed using electrocautery. Hemostasis of the liver bed and surrounding area was attained using electrocautery. The gallbladder was placed in an EndoCatch bag. Copious irrigation and suction were performed until clear. The gallbladder was removed from the abdominal cavity. The fascia at the 10-mm trocar site was closed using a 0-Vicryl suture. All incision sites were irrigated and Marcaine was injected. Hemostasis of all incision sites was noted. All incision sites were closed using 4-0 Biosyn. Sterile dressings were applied. The patient tolerated the procedure well and was transferred to the recovery room in stable condition. Please note, at the beginning of the case, it was noted the patient had an umbilical hernia. This was used to gain access for the initial trocar. At the end of the case, the umbilical hernia was repaired with a Sidney Katie device laparoscopically with a 0 Vicryl suture. The umbilical hernia was noted to be fully repaired at the end of the case and the fascia fully secured. The patient tolerated the procedure well and was transferred to recovery room in stable condition. Jensen KENNEY/[id number]
[2017-04-22] MEDS: HYDROmorphone HCL CARPU-JECT 1 MG/1 ML DISP.SYRIN IVPB PRN (20:51)
[2017-04-22] MEDS ORDERED: ATORVASTATIN CA 20 MG TABLET (FP) PO SCH (22:00)
[2017-04-22] MEDS ORDERED: MIRTAZAPINE 15 MG TABLET (FP) PO SCH (22:00)
[2017-04-22] MEDS: traMADol HCL 50 MG TABLET PO PRN (22:53)
[2017-04-23] MEDS: HYDROmorphone HCL CARPU-JECT 1 MG/1 ML DISP.SYRIN IVPB PRN (04:22)
[2017-04-23] MEDS ORDERED: GEMFIBROZIL 600 MG TABLET (FP) PO SCH (07:00)
[2017-04-23] MEDS ORDERED: LEVOTHYROXINE NA 25 MCG TABLET (FP) PO SCH (07:00)
[2017-04-23 07:31] LABS: BASOPHIL 0.7 % (0-2.0); EOSINOPHIL 0.1 % (0-4.5); MCH 31.4 pg (25.7-33.7); MCHC 33.1 g/dl (32.0-36.0); MEAN CELL VOLUME 94.9 fl (80-96); MEAN PLT VOLUME 7.4 fl (7.5-11.1); NEUTROPHILS 81.5 % (42.8-82.8); PLATELET COUNT 251 K/MM3 (134-434); RDW 17.5 % (11.6-15.6); WHITE BLOOD COUNT 9.5 K/mm3 (4.0-10.0)
[2017-04-23 08:01] LABS: ANION GAP 12 (8-16); CALCIUM 8.9 mg/dL (8.5-10.1); CO2 25 mmol/L (21-32); CREATININE 0.5 mg/dL (0.55-1.02); GLUCOSE,RANDOM 86 mg/dL (74-106); MAGNESIUM 1.8 mg/dL (1.8-2.4); PHOSPHOROUS 2.9 mg/dL (2.5-4.9)
--- NOTE | 2017-04-23 08:21 | PN ---
Progress Note (short form) - Note Progress Note: Post op day#1.S/P Laproscopic cholecystectomy under [place] uneventful.Patient stable.No any anesthesia related problem.Patient DC from the anesthesia care.
[2017-04-23] MEDS ORDERED: PANTOPRAZOLE SODIUM 40 MG in SODIUM CHLORIDE 100 ML IVPB SCH (10:00)
[2017-04-23] MEDS ORDERED: CHOLECALCIFEROL (VITAMIN D3) 1,000 UNIT TABLET (FP) PO SCH (10:00)
[2017-04-23] MEDS ORDERED: predniSONE 5 MG TABLET (UD) PO SCH (10:00)
[2017-04-23] MEDS ORDERED: FOLIC ACID 1 MG TABLET (FP) PO SCH (10:00)
[2017-04-23] MEDS ORDERED: GABAPENTIN 300 MG CAPSULE (FP) PO SCH (10:00)
[2017-04-23] MEDS ORDERED: ENALAPRIL MALEATE 10 MG TABLET (FP) PO SCH (10:00)
[2017-04-23] MEDS ORDERED: amLODIPine BESYLATE 5 MG TABLET (FP) PO SCH (10:00)
[2017-04-23] MEDS ORDERED: ASCORBIC ACID 500 MG TABLET (FP) PO SCH (10:00)
[2017-04-23] MEDS: hydrALAZINE HCL 10 MG TABLET PO SCH (10:12)
[2017-04-23] MEDS: METOPROLOL TARTRATE 25 MG TABLET (FP) PO SCH (10:12)
[2017-04-23] MEDS: POTASSIUM CHLORIDE TABS 10 MEQ TABLET.ER (FP) PO SCH (10:12)
[2017-04-23] MEDS: traMADol HCL 50 MG TABLET PO PRN (10:14)
--- NOTE | 2017-04-23 10:45 | PN ---
Progress Note (short form) - Note Progress Note: POD 1 Pain controlled On diet Vital Signs Period Temp Pulse Resp BP Sys/Barillas Pulse Ox Last 24 Hr 97.4 F-99.8 F 68-102 16-24 123-183/65-90 95-98 Abd soft, dressing dry, intact CBC,CMP WBC 9.5 K/mm3 (4.0-10.0) D 04/23/17 06:20 RBC 4.41 M/mm3 (3.60-5.2) 04/23/17 06:20 Hgb 13.8 GM/dL (10.7-15.3) 04/23/17 06:20 Hct 41.8 % (32.4-45.2) 04/23/17 06:20 MCV 94.9 fl (80-96) 04/23/17 06:20 MCH 31.4 pg (25.7-33.7) 04/23/17 06:20 MCHC 33.1 g/dl (32.0-36.0) 04/23/17 06:20 RDW 17.5 % (11.6-15.6) H 04/23/17 06:20 Plt Count 251 K/MM3 (134-434) 04/23/17 06:20 MPV 7.4 fl (7.5-11.1) L 04/23/17 06:20 Neutrophils % 81.5 % (42.8-82.8) D 04/23/17 06:20 Lymphocytes % 12.8 % (8-40) D 04/23/17 06:20 Monocytes % 4.9 % (3.8-10.2) 04/23/17 06:20 Eosinophils % 0.1 % (0-4.5) D 04/23/17 06:20 Basophils % 0.7 % (0-2.0) 04/23/17 06:20 Sodium 131 mmol/L (136-145) L 04/23/17 06:20 Potassium 4.3 mmol/L (3.5-5.1) 04/23/17 06:20 Chloride 94 mmol/L (98-107) L 04/23/17 06:20 Carbon Dioxide 25 mmol/L (21-32) 04/23/17 06:20 Anion Gap 12 (8-16) 04/23/17 06:20 BUN 11 mg/dL (7-18) 04/23/17 06:20 Creatinine 0.5 mg/dL (0.55-1.02) L 04/23/17 06:20 Creat Clearance w eGFR > 60 (>60) 04/18/17 07:30 Random Glucose 86 mg/dL (74-106) 04/23/17 06:20 Serum Osmolality 275 mosm/kg (278-305) L 04/15/17 20:00 Uric Acid 3.8 mg/dL (2.6-7.2) 04/15/17 20:00 Calcium 8.9 mg/dL (8.5-10.1) 04/23/17 06:20 Phosphorus 2.9 mg/dL (2.5-4.9) 04/23/17 06:20 Magnesium 1.8 mg/dL (1.8-2.4) 04/23/17 06:20 Total Bilirubin 0.5 mg/dL (0.2-1.0) D 04/18/17 07:30 AST 21 U/L (15-37) 04/18/17 07:30 ALT 9 U/L (12-78) L 04/18/17 07:30 Alkaline Phosphatase 88 U/L (45-117) 04/18/17 07:30 Creatine Kinase 58 IU/L (26-192) 04/14/17 07:10 Troponin I 0.02 ng/ml (0.00-0.05) 04/14/17 07:10 Total Protein 7.1 g/dl (6.4-8.2) 04/18/17 07:30 Albumin 2.8 g/dl (3.4-5.0) L 04/18/17 07:30 Triglycerides 54 mg/dL (35-160) D 04/16/17 07:00 Cholesterol 99 mg/dL (50-200) 04/16/17 07:00 Total LDL Cholesterol 43 mg/dL (5-100) 04/16/17 07:00 HDL Cholesterol 52 mg/dL (40-60) D 04/16/17 07:00 Lipase 104 U/L (73-393) 04/13/17 11:08 TSH 1.36 uIU/ml (0.358-3.74) D 04/16/17 07:00 Cortisol AM Sample 1.8 ug/dL (.) 04/16/17 07:00 Low fat diet OOB Can discharge home from surgical standpoint Problem List - Problems (1) Cholelithiases Code(s): K80.20 - CALCULUS OF GALLBLADDER W/O CHOLECYSTITIS W/O OBSTRUCTION Qualifiers: Cholelithiasis location: gallbladder Cholecystitis presence: without cholecystitis Biliary obstruction: without biliary obstruction Qualified Code(s): K80.20 - Calculus of gallbladder without cholecystitis without obstruction; K80.20 - Calculus of gallbladder without cholecystitis without obstruction (2) Epigastric abdominal pain Code(s): R10.13 - EPIGASTRIC PAIN
--- NOTE | 2017-04-23 13:13 | PN ---
Progress Note, Physician Chief Complaint: abdominal pain, nausea had EGD yesterday- showed erosions secondary to NSAIDs History of Present Illness: NAD, in bed, self ambulatory, fall risk, forgetful at times -tolerating solid foods well. Cleared by Surgery to be d/c'd home - Current Medication List Current Medications: Active Medications Al Hydroxide/Mg Hydroxide (Mylanta Oral Suspension -) 30 ml PO Q6H PRN PRN Reason: DYSPEPSIA Amlodipine Besylate (Norvasc -) 5 mg PO DAILY [facility] Last Admin: 04/23/17 10:12 Dose: 5 mg Ascorbic Acid (Vitamin C -) 500 mg PO DAILY [facility] Last Admin: 04/23/17 10:13 Dose: 500 mg Atorvastatin Calcium (Lipitor -) 20 mg PO HS [facility] Last Admin: 04/22/17 21:28 Dose: 20 mg Bupropion HCl (Wellbutrin Xl -) 150 mg PO DAILY [facility] Last Admin: 04/23/17 10:14 Dose: 150 mg Cholecalciferol (Vitamin D3 -) 2,000 unit PO DAILY [facility] Last Admin: 04/23/17 10:09 Dose: 2,000 unit Diphenhydramine HCl (Benadryl Injection -) 25 mg IVPB Q6H PRN PRN Reason: FOR ITCHING Last Admin: 04/22/17 19:00 Dose: 25 mg Docusate Sodium (Colace -) 100 mg PO BID PRN PRN Reason: CONSTIPATION Enalapril Maleate (Vasotec -) 20 mg PO DAILY [facility] Last Admin: 04/23/17 10:12 Dose: 20 mg Fentanyl (Sublimaze Injection -) 50 mcg IVPUSH [id number] PRN PRN Reason: PAIN Stop: 04/25/17 18:28 Last Admin: 04/22/17 19:55 Dose: 50 mcg Folic Acid (Folic Acid -) 1 mg PO DAILY [facility] Last Admin: 04/23/17 10:13 Dose: 1 mg Gabapentin (Neurontin -) 600 mg PO DAILY [facility] Last Admin: 04/23/17 10:11 Dose: 600 mg Gemfibrozil (Lopid -) 600 mg PO BID@0700,1630 [facility] Last Admin: 04/23/17 06:08 Dose: 600 mg Hydralazine HCl (Apresoline -) 20 mg PO BID [facility] Last Admin: 04/23/17 10:12 Dose: 20 mg Hydromorphone HCl (Dilaudid Injection -) 1 mg IVPB Q4H PRN PRN Reason: PAIN Last Admin: 04/23/17 04:22 Dose: 1 mg Lactated Ringer's (Lactated Ringers Solution) 1,000 mls @ 125 mls/hr IV ASDIR [facility] Last Admin: 04/22/17 20:56 Dose: 0 mls Pantoprazole Sodium 40 mg/ (Sodium Chloride) 100 mls @ 200 mls/hr IVPB DAILY [facility] Last Admin: 04/23/17 10:14 Dose: Not Given Levothyroxine Sodium (Synthroid -) 25 mcg PO ACBK [facility] Last Admin: 04/23/17 06:08 Dose: 25 mcg Methotrexate (Mexate -) 20 mg PO Tu@1000 MAUREEN Metoprolol Tartrate (Lopressor -) 25 mg PO BID [facility] Last Admin: 04/23/17 10:12 Dose: 25 mg Mirtazapine (Remeron -) 15 mg PO HS [facility] Last Admin: 04/22/17 21:28 Dose: 15 mg Ondansetron HCl (Zofran Injection) 4 mg IVPB Q8H PRN PRN Reason: NAUSEA Potassium Chloride (K-Dur -) 10 meq PO BID [facility] Last Admin: 04/23/17 10:12 Dose: 10 meq Prednisone (Deltasone -) 5 mg PO DAILY [facility] Last Admin: 04/23/17 10:14 Dose: 5 mg Tramadol HCl (Ultram -) 50 mg PO Q6H PRN PRN Reason: PAIN Last Admin: 04/23/17 10:14 Dose: 50 mg - Objective Vital Signs: Vital Signs Temperature 98.5 F 04/23/17 10:00 Pulse Rate 82 04/23/17 10:00 Respiratory Rate 18 04/23/17 10:00 Blood Pressure 137/59 04/23/17 10:00 O2 Sat by Pulse Oximetry (%) 96 04/22/17 21:00 Constitutional: Yes: Well Nourished, No Distress, Calm Cardiovascular: Yes: Regular Rate and Rhythm Respiratory: Yes: Regular Gastrointestinal: Yes: Normal Bowel Sounds Extremities: Yes: WNL Edema: Yes Edema: LLE: Trace, RLE: Trace Peripheral Pulses WNL: Yes Neurological: Yes: Alert, Pre-Existing Deficit Psychiatric: Yes: Alert Labs: CBC, BMP 04/23/17 06:20 04/23/17 06:20 INR, PTT INR 1.03 (0.82-1.09) 04/21/17 06:45 Problem List - Problems (1) CAD (coronary artery disease) Assessment/Plan: BB, ACEI, hydralazine no aspirin til gastric erosion are healed patient is on ppi Code(s): I25.10 - ATHSCL HEART DISEASE OF [place] CORONARY ARTERY W/O ANG PCTRS (2) Epigastric abdominal pain Assessment/Plan: -resolved -PPI Code(s): R10.13 - EPIGASTRIC PAIN (3) Cholelithiases Assessment/Plan: -seen by GI surgery -S/P cholecystectomy -tolerating solid foods Code(s): K80.20 - CALCULUS OF GALLBLADDER W/O CHOLECYSTITIS W/O OBSTRUCTION Qualifiers: Cholelithiasis location: gallbladder Cholecystitis presence: without cholecystitis Biliary obstruction: without biliary obstruction Qualified Code(s): K80.20 - Calculus of gallbladder without cholecystitis without obstruction; K80.20 - Calculus of gallbladder without cholecystitis without obstruction (4) Gastric erosion determined by endoscopy Assessment/Plan: -Has RA, has been taking anti-inflammatory for years for pain management -recommend tramadol, said she has tried her husbands Tramadol which helped. Code(s): K25.9 - GASTRIC ULCER, UNSP ACUTE OR CHRONIC, W/O HEMOR OR PERF (5) Hyponatremia Assessment/Plan: -improved -nephrology on board Code(s): E87.1 - HYPO-OSMOLALITY AND HYPONATREMIA (6) Leukocytopenia Assessment/Plan: resolved Code(s): D72.819 - DECREASED WHITE BLOOD CELL COUNT, UNSPECIFIED Assessment/Plan see problem list
[2017-04-23] MEDS ORDERED: SODIUM CHLORIDE 1 GM TABLET PO SCH (14:00)
--- NOTE | 2017-04-23 14:14 | PN ---
Progress Note (short form) - Note Progress Note: Renal follow up for hyponatremia Pt seen and examined at the bedside awake and alert s/p Laparoscopic cholecystectomy yesterday has mild abd pain was on IVF overnight no N/V, confusion or lethargy Vital Signs Temperature 98.5 F 04/23/17 10:00 Pulse Rate 82 04/23/17 10:00 Respiratory Rate 18 04/23/17 10:00 Blood Pressure 137/59 04/23/17 10:00 O2 Sat by Pulse Oximetry (%) 96 04/22/17 21:00 Intake & Output 04/20/17 04/21/17 04/22/17 04/23/17 23:59 23:59 23:59 23:59 Intake Total 1745 1760 1800 1725 Output Total 2 520 Balance 1743 1760 1280 1725 NAD, awake and alert RRR CTA soft NT/ND no edema CBC, BMP 04/23/17 06:20 04/23/17 06:20 Current Medications Al Hydroxide/Mg Hydroxide (Mylanta Oral Suspension -) 30 ml PO Q6H PRN PRN Reason: DYSPEPSIA Amlodipine Besylate (Norvasc -) 5 mg PO DAILY [facility] Last Admin: 04/23/17 10:12 Dose: 5 mg Ascorbic Acid (Vitamin C -) 500 mg PO DAILY [facility] Last Admin: 04/23/17 10:13 Dose: 500 mg Atorvastatin Calcium (Lipitor -) 20 mg PO HS [facility] Last Admin: 04/22/17 21:28 Dose: 20 mg Bupropion HCl (Wellbutrin Xl -) 150 mg PO DAILY [facility] Last Admin: 04/23/17 10:14 Dose: 150 mg Cholecalciferol (Vitamin D3 -) 2,000 unit PO DAILY [facility] Last Admin: 04/23/17 10:09 Dose: 2,000 unit Diphenhydramine HCl (Benadryl Injection -) 25 mg IVPB Q6H PRN PRN Reason: FOR ITCHING Last Admin: 04/22/17 19:00 Dose: 25 mg Docusate Sodium (Colace -) 100 mg PO BID PRN PRN Reason: CONSTIPATION Enalapril Maleate (Vasotec -) 20 mg PO DAILY [facility] Last Admin: 04/23/17 10:12 Dose: 20 mg Fentanyl (Sublimaze Injection -) 50 mcg IVPUSH [id number] PRN PRN Reason: PAIN Stop: 04/25/17 18:28 Last Admin: 04/22/17 19:55 Dose: 50 mcg Folic Acid (Folic Acid -) 1 mg PO DAILY [facility] Last Admin: 04/23/17 10:13 Dose: 1 mg Gabapentin (Neurontin -) 600 mg PO DAILY [facility] Last Admin: 04/23/17 10:11 Dose: 600 mg Gemfibrozil (Lopid -) 600 mg PO BID@0700,1630 [facility] Last Admin: 04/23/17 06:08 Dose: 600 mg Hydralazine HCl (Apresoline -) 20 mg PO BID [facility] Last Admin: 04/23/17 10:12 Dose: 20 mg Hydromorphone HCl (Dilaudid Injection -) 1 mg IVPB Q4H PRN PRN Reason: PAIN Last Admin: 04/23/17 04:22 Dose: 1 mg Lactated Ringer's (Lactated Ringers Solution) 1,000 mls @ 125 mls/hr IV ASDIR [facility] Last Admin: 04/22/17 20:56 Dose: 0 mls Pantoprazole Sodium 40 mg/ (Sodium Chloride) 100 mls @ 200 mls/hr IVPB DAILY [facility] Last Admin: 04/23/17 10:14 Dose: Not Given Levothyroxine Sodium (Synthroid -) 25 mcg PO ACBK [facility] Last Admin: 04/23/17 06:08 Dose: 25 mcg Methotrexate (Mexate -) 20 mg PO Tu@1000 [facility] Metoprolol Tartrate (Lopressor -) 25 mg PO BID [facility] Last Admin: 04/23/17 10:12 Dose: 25 mg Mirtazapine (Remeron -) 15 mg PO HS [facility] Last Admin: 04/22/17 21:28 Dose: 15 mg Ondansetron HCl (Zofran Injection) 4 mg IVPB Q8H PRN PRN Reason: NAUSEA Potassium Chloride (K-Dur -) 10 meq PO BID [facility] Last Admin: 04/23/17 10:12 Dose: 10 meq Prednisone (Deltasone -) 5 mg PO DAILY [facility] Last Admin: 04/23/17 10:14 Dose: 5 mg Sodium Chloride (Sodium Chloride Tablet -) 1 gm PO DAILY [facility] Tramadol HCl (Ultram -) 50 mg PO Q6H PRN PRN Reason: PAIN Last Admin: 04/23/17 10:14 Dose: 50 mg 71 year old woman with PMhx of Hypertension, Asthma, COPD, Peripheral Neuropathy, TIA, RA, Cutaneous Vasculitis who presented from home with complaints of epigastric pain and N/V and found to have hyponatremia. #Hyponatremia with evidence of excessive ADH Urine studies show a high urine Na, High Urine OSM, Normal serum uric acid, low serum osmolarity Studies are indicative of excessive ADH release in the setting of hypoosmolar hyponatremia Na downtrende today, likely as a result of the IVF she recieved will start Salt tabs 1g Daily fluid restriction of 1L daily both salt tabs and restriction to be continued as a outpatient, to follow up in the office on discharge for further management #Epigastric Pain wit N/V s/p Laparoscopic cholecystectomy #Hypertension Bp is at [facility] presently continue Norvasc and Metoprolol Thank you Will follow [facility] Problem List - Problems (1) Epigastric abdominal pain Code(s): R10.13 - EPIGASTRIC PAIN (2) Hyponatremia Code(s): E87.1 - HYPO-OSMOLALITY AND HYPONATREMIA (3) Hypertension Code(s): I10 - ESSENTIAL (PRIMARY) HYPERTENSION
[2017-04-23 14:32] VITALS: BP 124/59; PULSE 70; TEMP 99.6
--- NOTE | 2017-04-26 09:56 | PATH ---
Surgical Pathology Report Patient Name: ZAYRA CORTEZ [facility]. Rec. #: [id number] /Age/Gender: 1945 (Age: 71) / F Account: [id number] Location: [address] [place] [address]/[facility] Taken: 04/22/2017 Received: 04/23/2017 Reported: 04/26/2017 Physicians: Jensen Calle M.D. Specimen(s) Received GALLBLADDER Clinical History Chronic cholecystitis Final Diagnosis GALLBLADDER, CHOLECYSTECTOMY: CHRONIC CHOLECYSTITIS AND CHOLELITHIASIS. BENIGN PERICYSTIC LYMPH NODE PRESENT. Electronically Signed Reynaldo Escalante M.D. Gross Description Received in formalin, labeled "gallbladder," is a 7.0 x 2.5 x 2.3 cm. gallbladder with a 0.2 cm. in length portion of cystic duct attached. There is a 0.7 cm greatest dimension nguyen periductal lymph node present. The outer surface is nguyen-tracy and varies from smooth to shaggy. The lumen contains green, tenacious bile as well as abundant black, irregular to fragmented choleliths ranging from 0.1-1.2 cm in greatest dimension. The gallbladder fundus displays a thickened wall with submucosal cystic spaces. The mucosa is nguyen-green with focal erosions. The wall of the gallbladder averages 0.1 cm. in thickness. Dye Machine Tender sections are submitted in 2 cassettes as follows: 1-cystic duct margin, periductal lymph node and asset protection representative gallbladder; 2-fundus. /04/23/2017 saudi/04/23/2017
[2017-04-27] MEDS ORDERED: METHOTREXATE 2.5 MG TABLET PO SCH (10:00)
== END 2017-04-23 15:28 | disposition home or self-care (01) | DRG 418 ==
LOC: JER 09:52 → JERBED 15:48 → J5S 18:40 → OBSVTOIN 04-20 16:00
PROVIDERS: ADMIT Family Medicine; ATTEND Family Medicine
PROC: 0DD98ZX Extraction of Duodenum, Via Natural or Artificial Opening Endoscopic, Diagnostic (ICD-10-PCS; 2017-04-20)
PROC: 0DD68ZX Extraction of Stomach, Via Natural or Artificial Opening Endoscopic, Diagnostic (ICD-10-PCS; 2017-04-20)
PROC: 0WQF0ZZ Repair Abdominal Wall, Open Approach (ICD-10-PCS; 2017-04-22)
PROC: 0FT44ZZ Resection of Gallbladder, Percutaneous Endoscopic Approach (ICD-10-PCS; principal; 2017-04-22 14:00)
DX: K80.80 Other cholelithiasis without obstruction (principal); E87.1 Hypo-osmolality and hyponatremia; K80.12 Calculus of gallbladder with acute and chronic cholecystitis without obstruction; K29.00 Acute gastritis without bleeding; K31.89 Other diseases of stomach and duodenum; I71.4 Abdominal aortic aneurysm, without rupture; D73.4 Cyst of spleen; K42.9 Umbilical hernia without obstruction or gangrene; R10.13 Epigastric pain; I48.91 Unspecified atrial fibrillation; J44.9 Chronic obstructive pulmonary disease, unspecified; E78.00 Pure hypercholesterolemia, unspecified; F17.210 Nicotine dependence, cigarettes, uncomplicated; R63.0 Anorexia; Z68.22 Body mass index [BMI] 22.0-22.9, adult; G62.9 Polyneuropathy, unspecified; M06.9 Rheumatoid arthritis, unspecified; I10 Essential (primary) hypertension; F03.90 Unspecified dementia, unspecified severity, without behavioral disturbance, psychotic disturbance, mood disturbance, and anxiety; K57.30 Diverticulosis of large intestine without perforation or abscess without bleeding; Z90.710 Acquired absence of both cervix and uterus; F40.240 Claustrophobia; I25.10 Atherosclerotic heart disease of native coronary artery without angina pectoris
CPT/HCPCS: 36415; 71010-TC; 74160-TC; 74240-TC; 76705-TC; 78226-TC; 80048; 80053; 80061; 81003; 81015; 82533; 83690; 83721; 83735; 83930; 83935; 84100; 84300; 84443; 84484; 84550; 85025; 85027; 85610; 86850; 86900; 86901; 88304-TC; 90688; 93005; 93010; 94760; 99283-25; A9537; G0378; J8610

== ENCOUNTER 2017-12-05 11:27 | Observation (INO) | payer OTHER, BC ==
--- NOTE | 2017-12-05 12:39 | PDOC ---
History of Present Illness - General Chief Complaint: Diarrhea Stated Complaint: DIARRHEA, LOSS OF APPETITE Time Seen by Provider: 12/05/17 12:02 History Source: Patient Exam Limitations: No Limitations - History of Present Illness Initial Comments: CHIEF COMPLAINT: 72 y/o afebrile female with PMH Dementia, HTN, HLD, hypothyroidism, RA, chronic pain BIB and daughter for nausea, vomiting, diarrhea and abdominal pain x 4 days. HISTORY OF PRESENT ILLNESS: The patient's states symptoms started 4 days ago and all she's kept down was a piece of an egg 2 days ago. The diarrhea has stopped because he gave her immodium. She states her whole body hurts. They deny fever, cough, CP, SOB, back pain, hematuria, dysuria. PCP is Dr. Fajardo Vital signs on arrival are notable for pulse of 144. REVIEW OF SYSTEMS: GENERAL/CONSTITUTIONAL: No fever/chills. No weakness. No weight change. HEAD, EYES, EARS, NOSE AND THROAT: No change in vision. No ear pain or discharge. No sore throat. CARDIOVASCULAR: No chest pain or shortness of breath. RESPIRATORY: No cough, wheezing, or hemoptysis. GASTROINTESTINAL: +abd pain, nausea, vomiting, diarrhea. GENITOURINARY: No dysuria, frequency, or change in urination. MUSCULOSKELETAL: No joint or muscle swelling or pain. No neck or back pain. SKIN: No rash or easy bruising. NEUROLOGIC: No headache, vertigo, loss of consciousness, or loss of sensation. PHYSICAL EXAM: GENERAL: The patient is awake, alert, and fully oriented, in no acute distress. HEAD: Normal with no signs of trauma. ENT: Pupils equal, round and reactive to light, extraocular movements intact, sclera anicteric, conjunctiva clear. Neck supple. LUNGS: Clear to auscultation bilaterally. Normal excursion. No respiratory distress or use of accessory muscles. CV: Rapid rate/regular rhythm, S1/S2, no MRG. Cap refill < 2 sec. ABDOMEN: Soft, non-distended, diffusely tender without focal abnormalities, no hepatomegaly or splenomegaly, no masses. Negative lofton's sign. No rebound, guarding or rigidity. Normal BS x 4. EXTREMITIES: Normal range of motion, no edema. NEUROLOGICAL: Normal speech, normal gait. CN II-XII grossly intact. SKIN: Decreased skin turgor \ Past History - Past Medical History Allergies/Adverse Reactions: Allergies Allergy/AdvReac Type Severity Reaction Status Date / Time Sulfa (Sulfonamide Allergy Hives Verified 12/05/17 11:37 Antibiotics) dipyridamole AdvReac Mild headache Verified 12/05/17 11:37 [From Persantine] indomethacin [From Indocin] AdvReac Mild headache Verified 12/05/17 11:37 Home Medications: Ambulatory Orders Amlodipine Besylate [Norvasc -] 5 mg PO HS 10/26/16 Ascorbate Calcium [Vitamin C] 500 mg PO DAILY 10/26/16 Enalapril Maleate [Vasotec] 20 mg PO HS 10/26/16 Gabapentin [Neurontin] 600 mg PO DAILY 10/26/16 Immun Glob G(IgG)/Gly/Iga Ov50 [Gammagard Liquid 10% Vial] 40 ml IJ ASDIR Levothyroxine [Synthroid -] 25 mcg PO DAILY 10/26/16 Methotrexate [Mexate -] 20 mg PO Q7D 10/26/16 Metoprolol Tartrate [Lopressor -] 50 mg PO DAILY 10/26/16 Metoprolol Tartrate [Lopressor -] 75 mg PO HS 10/26/16 Mirtazapine 15 mg PO DAILY 10/26/16 Potassium Chloride [Klor-Con 10] 10 meq PO BID 10/26/16 hydrALAZINE HCL [Apresoline -] 25 mg PO DAILY PRN 10/26/16 predniSONE [Deltasone -] 5 mg PO DAILY 10/26/16 Atorvastatin Ca [Lipitor] 40 mg PO HS 12/06/17 B12/Levomefolate Calcium/B-6 [Folbic Rf Tablet] 2 each PO BID 12/06/17 Ferrous Sulfate 325 mg PO DAILY 12/06/17 Furosemide 20 mg PO DAILY PRN 12/06/17 Morphine *Immediate Release* [Msir -] 15 mg PO BID 12/06/17 Pantoprazole Sodium [Protonix -] 40 mg PO BID tablet.ec 12/08/17 Cardiac Disorders: Yes (ATRIAL FIBRILLATION) COPD: Yes Dementia: Yes (Memory loss) GI Disorders: Yes (CHRONIC ABDOMINAL PAIN) HTN: Yes Hypercholesterolemia: Yes Seizures: No - Surgical History Orthopedic Surgery: Yes (Left Toal Hip Replacement) - Immunization History Td Vaccination: Yes (6 YEARS AGO) Immunization Up to Date: Yes - Suicide/Smoking/Psychosocial Hx Smoking Status: Yes Smoking History: Current every day smoker Have you smoked in the past 12 months: No Number of Cigarettes Smoked Daily: 20 Information on smoking cessation initiated: No 'Breaking Loose' booklet given: 04/13/17 Hx Alcohol Use: No Drug/Substance Use Hx: No Substance Use Type: None *Physical Exam - Vital Signs Last Vital Signs Temp Pulse Resp BP Pulse Ox 98 F 144 H 20 140/88 100 12/05/17 11:34 12/05/17 11:34 12/05/17 11:34 12/05/17 11:34 12/05/17 11:34 Heart Score/ECG Review - ECG Intrepretation Comment:: Twelve-lead EKG was performed and reviewed by Dr. Muhammad. There is sinus tachycardia with PACs. The axis is normal. The intervals are normal. Non specific T wave abnormality. Impression: Abnormal twelve-lead EKG ED Treatment Course - LABORATORY CBC & Chemistry Diagram: 12/07/17 11:45 12/08/17 06:30 Medical Decision Making - Medical Decision Making A/P: 72 y/o afebrile female c/o nausea, vomiting, diarrhea and abdominal pain x 4 days. Plan is as follows: 1. Labs 2. UA/culture 3. IV fluids x 2 4. IV zofran 5. EKG Patient will be admitted as she still feels nauseous and is vomiting. Admitted to Dr. Fajardo *DC/Admit/Observation/Transfer Diagnosis at time of Disposition: Abdominal pain, Decreased appetite, Nausea, UTI (urinary tract infection) - Discharge Dispostion Disposition: HOME Condition at time of disposition: Stable - Referrals - Patient Instructions - Post Discharge Activity
[2017-12-05] MEDS ORDERED: ONDANSETRON 4 MG/2 ML VIAL IVPUSH ONE ×3 (12:40→20:39)
[2017-12-05] MEDS ORDERED: SODIUM CHLORIDE 2,000 ML IV STA (12:40)
[2017-12-05] MEDS ORDERED: ONDANSETRON 4 MG/2 ML VIAL ONE ×3 (12:49→20:50)
[2017-12-05 13:12] LABS: BASO % 1.3 % (0-2.0); EOS % 0.7 % (0-4.5); HEMATOCRIT 37.9 % (32.4-45.2); HEMOGLOBIN 12.9 GM/dL (10.7-15.3); LYMPH % 18.2 % (8-40); MEAN CELL VOLUME 85.1 fl (80-96); MEAN PLT VOLUME 6.6 fl (7.5-11.1); MONO % 8.5 % (3.8-10.2); NEUT % 71.3 % (42.8-82.8); PLATELET COUNT 267 K/MM3 (134-434); RBC 4.46 M/mm3 (3.60-5.2); RDW 21.1 % (11.6-15.6); WHITE BLOOD COUNT 7.1 K/mm3 (4.0-10.0)
[2017-12-05 13:34] LABS: ALBUMIN 2.5 g/dl (3.4-5.0); ALK PHOS 93 U/L (45-117); ANION GAP 8 (8-16); BILIRUBIN,TOTAL 0.7 mg/dL (0.2-1.0); BLOOD UREA NITROGEN 19 mg/dL (7-18); CALCIUM 8.8 mg/dL (8.5-10.1); CHLORIDE 91 mmol/L (98-107); CO2 30 mmol/L (21-32); CREATININE 0.5 mg/dL (0.55-1.02); GLUCOSE,RANDOM 127 mg/dL (74-106); POTASSIUM 3.2 mmol/L (3.5-5.1); SGOT/AST 31 U/L (15-37); SGPT/ALT 13 U/L (12-78); SODIUM 129 mmol/L (136-145)
[2017-12-05] MEDS ORDERED: METOCLOPRAMIDE HCL INJECTION 10 MG/2 ML VIAL IVPUSH ONE ×2 (13:43→23:13)
[2017-12-05] MEDS ORDERED: METOCLOPRAMIDE HCL INJECTION 10 MG/2 ML VIAL ONE (13:46)
[2017-12-05] MEDS ORDERED: KCL 10 MEQ IVPB 10 MEQ/100 ML INFUS.BAG IVPB ONE (14:38)
[2017-12-05] MEDS ORDERED: KCL 10 MEQ IVPB 10 MEQ/100 ML INFUS.BAG IVPB SCH (14:45)
[2017-12-05 14:52] LABS: URINE APPEARANCE SLCLOUDY; URINE BILIRUBIN NEGATIVE (<2.0 mg/dL); URINE BLOOD 2+ (NEGATIVE); URINE COLOR AMBER; URINE GLUCOSE (UA) NEGATIVE (NEGATIVE); URINE KETONE TRACE (NEGATIVE); URINE NITRITE NEGATIVE (NEGATIVE); URINE UROBILINOGEN 4.0 E.U/dl mg/dL (0.2-1.0)
[2017-12-05 14:57] LABS: URINE LEUK ESTERASE 2+ (NEGATIVE); URINE PROTEIN 2+ (NEGATIVE)
[2017-12-05 15:10] LABS: EPI CELLS RARE /HPF (FEW); URINE HYALINE CAST 11 /lpf; URINE MUCUS MANY
[2017-12-05] MEDS ORDERED: POTASSIUM CHLORIDE TABS 20 MEQ TABLET.ER (FP) PO ONE ×2 (19:39→19:51)
[2017-12-05] MEDS ORDERED: NITROFURANTOIN MACROCRYSTAL 50 MG CAPSULE (FP) PO SCH (19:45)
[2017-12-05] MEDS ORDERED: SODIUM CHLORIDE 1,000 ML IV SCH (19:45)
[2017-12-05] MEDS ORDERED: NITROFURANTOIN MACROCRYSTAL 50 MG CAPSULE (FP) PO ONE (19:45)
[2017-12-05] MEDS ORDERED: NITROFURANTOIN MACROCRYSTAL 50 MG CAPSULE (FP) ONE (19:51)
[2017-12-05] MEDS ORDERED: MORPHINE SULFATE 10 MG/5 ML CUP PO ONE (21:02)
--- NOTE | 2017-12-05 21:04 | PDOC ---
*Physical Exam - Vital Signs Last Vital Signs Temp Pulse Resp BP Pulse Ox 98.1 F 103 H 20 143/70 94 L 12/05/17 19:46 12/05/17 19:46 12/05/17 19:46 12/05/17 19:46 12/05/17 19:46 - Physical Exam General Appearance: Yes: Nourished Gastrointestinal/Abdominal: positive: Normal Bowel Sounds, Soft. negative: Tender ED Treatment Course - LABORATORY CBC & Chemistry Diagram: 12/05/17 13:00 12/05/17 20:50 - ADDITIONAL ORDERS Additional order review: Laboratory Results 12/05/17 12/05/17 12/05/17 14:41 13:00 13:00 Sodium 129 L Potassium 3.2 L Chloride 91 L Carbon Dioxide 30 Anion Gap 8 BUN 19 H Creatinine 0.5 L Creat Clearance w eGFR > 60 Random Glucose 127 H Lactic Acid 1.6 Calcium 8.8 Total Bilirubin 0.7 D AST 31 ALT 13 Alkaline Phosphatase 93 Total Protein 8.0 Albumin 2.5 L Urine Color Nidhi Urine Appearance Slcloudy Urine pH 5.0 Ur Specific Amanda 1.024 Urine Protein 2+ H Urine Glucose (UA) Negative Urine Ketones Trace H Urine Blood 2+ H Urine Nitrite Negative Urine Bilirubin Negative Urine Urobilinogen 4.0 e.u/dl H Ur Leukocyte Esterase 2+ H Urine WBC (Auto) 48 Urine RBC (Auto) 56 Ur Epithelial Cells Rare Hyaline Casts 11 Urine Mucus Many 12/05/17 13:00 RBC 4.46 MCV 85.1 MCHC 34.0 RDW 21.1 H D MPV 6.6 L D Neutrophils % 71.3 Lymphocytes % 18.2 D Monocytes % 8.5 Eosinophils % 0.7 D Basophils % 1.3 - Medications Given in the ED: ED Medications Discontinued Medications Generic Name Dose Route Start Last Admin Trade Name Freq PRN Reason Stop Dose Admin Diphenhydramine HCl 25 mg 12/05/17 13:43 12/05/17 13:45 Benadryl Injection - IVPUSH 12/05/17 13:44 25 mg ONCE ONE Administration Sodium Chloride 2,000 mls @ 1,000 mls/hr 12/05/17 12:40 12/05/17 13:10 Normal Saline - IV 12/05/17 14:39 1,000 mls/hr ASDIR STA Administration Potassium Chloride 10 meq in 100 mls @ 100 mls/hr 12/05/17 14:45 12/05/17 14: 41 Potassium Chloride 10 Meq Premix Ivpb - IVPB 12/05/17 15:44 100 mls/hr Q60M MAUREEN Administration Metoclopramide HCl 10 mg 12/05/17 13:43 12/05/17 13:46 Reglan Injection - IVPUSH 12/05/17 13:44 10 mg ONCE ONE Administration Ondansetron HCl 4 mg 12/05/17 12:40 12/05/17 13:10 Zofran Injection IVPUSH 12/05/17 12:41 4 mg ONCE ONE Administration Ondansetron HCl 4 mg 12/05/17 19:37 12/05/17 19:38 Zofran Injection IVPUSH 12/05/17 19:38 4 mg ONCE ONE Administration Ondansetron HCl 4 mg 12/05/17 20:39 12/05/17 20:48 Zofran Injection IVPUSH 12/05/17 20:40 4 mg ONCE ONE Administration Potassium Chloride 40 meq 12/05/17 19:39 12/05/17 19:48 K-Dur - PO 12/05/17 19:40 40 meq ONCE ONE Administration Medical Decision Making - Medical Decision Making lipase added, hyponatremina noted and 0.9% NS givem 200ml/hr. Home morphone dose checked on iStop. 15 mg's given PO. Awaiting Lipase and CMP. 12/05/17 21:03 l 12/05/17 21:47 hospitalist called for admission *DC/Admit/Observation/Transfer Diagnosis at time of Disposition: Abdominal pain, Decreased appetite, Nausea, UTI (urinary tract infection) - Discharge Dispostion Condition at time of disposition: Stable Decision to Admit order: Yes - Referrals Referrals: Devin Fajardo MD [Primary Care Provider] - - Patient Instructions - Post Discharge Activity
[2017-12-05 21:33] LABS: ALBUMIN 1.8 g/dl (3.4-5.0); ANION GAP 9 (8-16); BILIRUBIN,TOTAL 0.6 mg/dL (0.2-1.0); BLOOD UREA NITROGEN 12 mg/dL (7-18); CHLORIDE 104 mmol/L (98-107); CO2 23 mmol/L (21-32); CREATININE 0.3 mg/dL (0.55-1.02); GLUCOSE,RANDOM 73 mg/dL (74-106); SGOT/AST 21 U/L (15-37); SGPT/ALT 8 U/L (12-78); SODIUM 136 mmol/L (136-145); TOT PROT 5.8 g/dl (6.4-8.2)
[2017-12-05 21:34] LABS: ALK PHOS 68 U/L (45-117)
[2017-12-05] MEDS ORDERED: morphine SO4 SUSTAINED ACTING 15 MG TABLET.SA ONE (21:34)
[2017-12-05 21:35] LABS: CALCIUM 6.9 mg/dL (8.5-10.1); POTASSIUM 2.8 mmol/L (3.5-5.1)
[2017-12-05] MEDS ORDERED: POTASSIUM CHLORIDE 20 MEQ PREMIX IVPB 100 ML IVPB ONE (21:38)
[2017-12-05] MEDS ORDERED: KCL 10 MEQ IVPB 20 MEQ/200 ML INFUS.BAG IVPB ONE (21:56)
[2017-12-05] MEDS ORDERED: MAGNESIUM SULF 50% (8.12 MEQ/2 ML-1 GM VIAL) IVPB ONE (22:44)
[2017-12-05] MEDS ORDERED: MAGNESIUM SULF 50% (8.12 MEQ/2 ML-1 GM VIAL) ONE (23:05)
--- NOTE | 2017-12-05 23:28 | HP ---
CHIEF COMPLAINT: N/V/D abdominal pain PCP: Tana HISTORY OF PRESENT ILLNESS: This is a 72 year old female with a past medical history of dementia, HTN, chronic pain who presented to the ED with a 4 day history of N/V/D and abdominal pain. No further vomiting or diarrhea since arrival to ED. Pt is a poor historian. ER course was notable for: (1) sodium 129, 136 (2) Potassium 3.2, 2.8 Recent Travel: pt denies PAST MEDICAL HISTORY: dementia, HTN, HLD, afib, hypothyroid, chronic abd pain PAST SURGICAL HISTORY: L THR Social History: Smokin ppd Alcohol: pt denies Drugs: pt denies Family History: unclear Allergies Sulfa (Sulfonamide Antibiotics) Allergy (Verified 12/05/17 11:37) Hives dipyridamole [From Persantine] Adverse Reaction (Mild, Verified 12/05/17 11:37) headache indomethacin [From Indocin] Adverse Reaction (Mild, Verified 12/05/17 11:37) headache HOME MEDICATIONS: 3 Medication Instructions Recorded Amlodipine Besylate [Norvasc -] 5 mg PO HS 10/26/16 Ascorbate Calcium [Vitamin C] 500 mg PO DAILY 10/26/16 Enalapril Maleate [Vasotec] 20 mg PO HS 10/26/16 Gabapentin [Neurontin] 600 mg PO DAILY 10/26/16 Immun Glob G(IgG)/Gly/Iga Ov50 40 ml IJ ASDIR 10/26/16 [Gammagard Liquid 10% Vial] Levothyroxine [Synthroid -] 25 mcg PO DAILY 10/26/16 Methotrexate [Mexate -] 20 mg PO Q7D 10/26/16 Metoprolol Tartrate [Lopressor -] 50 mg PO DAILY 10/26/16 Metoprolol Tartrate [Lopressor -] 75 mg PO HS 10/26/16 Mirtazapine 15 mg PO DAILY 10/26/16 Potassium Chloride [Klor-Con 10] 10 meq PO BID 10/26/16 hydrALAZINE HCL [Apresoline -] 25 mg PO DAILY PRN 10/26/16 predniSONE [Deltasone -] 5 mg PO DAILY 10/26/16 Pantoprazole Sodium [Protonix] 40 mg PO DAILY #30 tablet.dr 04/23/17 Atorvastatin Ca [Lipitor] 40 mg PO HS 12/06/17 B12/Levomefolate Calcium/B-6 2 each PO BID 12/06/17 [Folbic Rf Tablet] Ferrous Sulfate 325 mg PO DAILY 12/06/17 Furosemide 20 mg PO DAILY PRN 12/06/17 Morphine *Immediate Release* [Msir 15 mg PO BID 12/06/17 -] REVIEW OF SYSTEMS CONSTITUTIONAL: Absent: fever, chills, diaphoresis, generalized weakness, malaise, loss of appetite, weight change HEENT: Absent: rhinorrhea, nasal congestion, throat pain, throat swelling, difficulty swallowing, mouth swelling, ear pain, eye pain, visual changes CARDIOVASCULAR: Absent: chest pain, syncope, palpitations, irregular heart rate, lightheadedness , peripheral edema RESPIRATORY: Absent: cough, shortness of breath, dyspnea with exertion, orthopnea, wheezing, stridor, hemoptysis GASTROINTESTINAL: Present: abdominal pain, nausea, vomiting, diarrhea Absent: abdominal distension, constipation, melena, hematochezia GENITOURINARY: Absent: dysuria, frequency, urgency, hesitancy, hematuria, flank pain, genital pain MUSCULOSKELETAL: Absent: myalgia, arthralgia, joint swelling, back pain, neck pain SKIN: Absent: rash, itching, pallor HEMATOLOGIC/IMMUNOLOGIC: Absent: easy bleeding, easy bruising, lymphadenopathy, frequent infections ENDOCRINE: Absent: unexplained weight gain, unexplained weight loss, heat intolerance, cold intolerance NEUROLOGIC: Absent: headache, focal weakness or paresthesias, dizziness, unsteady gait, seizure, mental status changes, bladder or bowel incontinence PSYCHIATRIC: Absent: anxiety, depression, suicidal or homicidal ideation, hallucinations. PHYSICAL EXAMINATION Vital Signs - 24 hr 3 12/05/17 12/05/17 12/05/17 11:34 15:15 19:46 Temperature 98 F 98.1 F Pulse Rate 144 H Pulse Rate [ 124 H 103 H Apical] Respiratory 20 20 20 Rate Blood Pressure 140/88 Blood Pressure 137/74 143/70 [Right Arm] O2 Sat by Pulse 100 95 94 L Oximetry (%) GENERAL: Awake, alert, and oriented to person only, in no acute distress. HEAD: Normal with no signs of trauma. EYES: Pupils equal, round and reactive to light, extraocular movements intact, sclera anicteric, conjunctiva clear. No lid lag. EARS, NOSE, THROAT: Ears normal, nares patent, oropharynx clear without exudates. Moist mucous membranes. NECK: Normal range of motion, supple without lymphadenopathy, JVD, or masses. LUNGS: Breath sounds equal, clear to auscultation bilaterally. No wheezes, and no crackles. No accessory muscle use. HEART: Regular rate and rhythm, normal S1 and S2 without murmur, rub or gallop. ABDOMEN: Soft, tender LUQ, not distended, normoactive bowel sounds, no guarding , no rebound, no masses. No hepatomegaly or splenomegaly. MUSCULOSKELETAL: Normal range of motion at all joints. No bony deformities or tenderness. No CVA tenderness. UPPER EXTREMITIES: 2+ pulses, warm, well-perfused. No cyanosis. No clubbing. No peripheral edema. LOWER EXTREMITIES: 2+ pulses, warm, well-perfused. No calf tenderness. No peripheral edema. NEUROLOGICAL: Cranial nerves II-XII intact. Normal speech. PSYCHIATRIC: Cooperative. Good eye contact. Appropriate mood and affect. SKIN: Warm, dry, normal turgor, no rashes or lesions noted, normal capillary refill. Laboratory Results - last 24 hr 3 12/05/17 12/05/17 12/05/17 13:00 13:00 13:00 WBC 7.1 RBC 4.46 Hgb 12.9 Hct 37.9 MCV 85.1 MCH 29.0 MCHC 34.0 RDW 21.1 H D Plt Count 267 MPV 6.6 L D Neutrophils % 71.3 Lymphocytes % 18.2 D Monocytes % 8.5 Eosinophils % 0.7 D Basophils % 1.3 Sodium 129 L Potassium 3.2 L Chloride 91 L Carbon Dioxide 30 Anion Gap 8 BUN 19 H Creatinine 0.5 L Creat Clearance w eGFR > 60 Random Glucose 127 H Lactic Acid 1.6 Calcium 8.8 Magnesium Total Bilirubin 0.7 D AST 31 ALT 13 Alkaline Phosphatase 93 Total Protein 8.0 Albumin 2.5 L Lipase Urine Color Urine Appearance Urine pH Ur Specific [place] Urine Protein Urine Glucose (UA) Urine Ketones Urine Blood Urine Nitrite Urine Bilirubin Urine Urobilinogen Ur Leukocyte Esterase Urine WBC (Auto) Urine RBC (Auto) Ur Epithelial Cells Hyaline Casts Urine Mucus 3 12/05/17 12/05/17 12/05/17 12/05/17 14:41 20:50 20:50 22:01 WBC RBC Hgb Hct MCV MCH MCHC RDW Plt Count MPV Neutrophils % Lymphocytes % Monocytes % Eosinophils % Basophils % Sodium 136 Potassium 2.8 L* Chloride 104 Carbon Dioxide 23 Anion Gap 9 BUN 12 Creatinine 0.3 L Creat Clearance w eGFR > 60 Random Glucose 73 L Lactic Acid Calcium 6.9 L* Magnesium 1.3 L Total Bilirubin 0.6 AST 21 ALT 8 L Alkaline Phosphatase 68 Total Protein 5.8 L Albumin 1.8 L Lipase 118 Urine Color N[place]hi Urine Appearance Slcloudy Urine pH 5.0 Ur Specific [place] 1.024 Urine Protein 2+ H Urine Glucose (UA) Negative Urine Ketones Trace H Urine Blood 2+ H Urine Nitrite Negative Urine Bilirubin Negative Urine Urobilinogen 4.0 e.u/dl H Ur Leukocyte Esterase 2+ H Urine WBC (Auto) 48 Urine RBC (Auto) 56 Ur Epithelial Cells Rare Hyaline Casts 11 Urine Mucus Many ECG sinus tachycardia Vent rate 106, QTC 464 flattened T waves Radiology Reports CT abd / pelvis without contrast THIS IS A PRELIMINARY REPORT FROM [facility] Findings: Atelectasis and scarring in lung bases. 4 mm indeterminate left lower lobe nodule. No pleural effusions. Splenic cysts. Cholecystectomy. Hepatic granulomas. Pancreas and adrenal glands are unremarkable. 3.9 cm x 3.6 cm fusiform infrarenal abdominal aortic aneurysm. Small renal cysts. No renal or urinary calculi. Much of the colon is decompressed. No evidence for diverticulitis, appendicitis , small bowel obstruction, free pelvic fluid, or free air. Hysterectomy. THIS DOCUMENT HAS BEEN ELECTRONICALLY SIGNED Monty Mariscal MD 12/05/2017 19:16 EST ASSESSMENT/PLAN: 72yF with PMH dementia, HTN, HLD, afib, hypothyroid, chronic abd pain presented to the ED with a 4 day history of poor po intake, N/V/D, abd pain. hyponatremia - improved s/p IVF - urine lytes/osmo, serum osmo ordered Hypokalemia/hypomagnesia - repleted, repeat in am abdominal discomfort, nausea - chronic h/o same - CT without acute findings on prelim read - consider GI consult - reglan PRN HTN/HLD/afib - cont home meds: enalapril, norvasc, metoprolol, atorvastatin - was on hydralazine at home PRN SBP >180, will hold for now RA - cont home meds: prednisone daily, methotrexate on keith - IGG hold til DC hypothyroid - tsh ordered DVT PPX - deferred, expected LOS less than 48h, reassess if stay exceeds 48h FEN - received 2L NS in ed, will hold on further IVF until am labs - bmp in am - low sodium diet as tolerated Dispo: Pt currently requires further observation for management of her emergent condition. Visit type - Emergency Visit Emergency Visit: Yes ED Registration Date: 12/05/17 Care time: The patient presented to the Emergency Department on the above date and was hospitalized for further evaluation of their emergent condition. - New Patient This patient is new to me today: Yes Date on this admission: 12/05/17 - Critical Care Critical Care patient: No Hospitalist Screening - Colonoscopy Questionnaire Colonoscopy Questionnaire: Colonoscopy Questionnaire - Patient: 50 - 75 years old and never had a screening colonoscopy: Unknown History of colon or rectal polyps, or CA: Unknown History of IBD, Crohn's disease or UC: Unknown History of abdominal radiation therapy as a child: Unknown - Relative: 1 with colon or rectal CA, or polyps at age 60 or younger: Unknown Colon or rectal CA diagnosed at age 45 or younger: Unknown Multiple relatives with colon or rectal CA: Unknown - Outcome: Screening Result: Negative Screen
[2017-12-06] MEDS ORDERED: METOCLOPRAMIDE HCL INJECTION 10 MG/2 ML VIAL ONE (00:04)
[2017-12-06] MEDS ORDERED: METOCLOPRAMIDE HCL INJECTION 10 MG/2 ML VIAL IVPUSH PRN (00:56)
[2017-12-06] MEDS ORDERED: NITROFURANTOIN MACROCRYSTAL 50 MG CAPSULE (FP) ONE (01:12)
[2017-12-06 02:11] LABS: ANION GAP 6 (8-16); BLOOD UREA NITROGEN 10 mg/dL (7-18); CHLORIDE 99 mmol/L (98-107); CO2 28 mmol/L (21-32); CREATININE 0.5 mg/dL (0.55-1.02); GLUCOSE,RANDOM 83 mg/dL (74-106); POTASSIUM 3.8 mmol/L (3.5-5.1); SODIUM 133 mmol/L (136-145)
[2017-12-06 06:35] LABS: BASO % 1.1 % (0-2.0); EOS % 1.9 % (0-4.5); HEMATOCRIT 34.2 % (32.4-45.2); HEMOGLOBIN 11.5 GM/dL (10.7-15.3); LYMPH % 18.1 % (8-40); MCH 29.1 pg (25.7-33.7); MCHC 33.6 g/dl (32.0-36.0); MEAN CELL VOLUME 86.6 fl (80-96); MEAN PLT VOLUME 6.6 fl (7.5-11.1); MONO % 9.3 % (3.8-10.2); NEUT % 69.6 % (42.8-82.8); PLATELET COUNT 229 K/MM3 (134-434); RBC 3.95 M/mm3 (3.60-5.2); WHITE BLOOD COUNT 5.6 K/mm3 (4.0-10.0)
[2017-12-06 06:58] LABS: ANION GAP 6 (8-16); BLOOD UREA NITROGEN 9 mg/dL (7-18); CALCIUM 8.2 mg/dL (8.5-10.1); CHLORIDE 100 mmol/L (98-107); CO2 28 mmol/L (21-32); GLUCOSE,RANDOM 77 mg/dL (74-106); MAGNESIUM 2.2 mg/dL (1.8-2.4); PHOSPHOROUS 2.6 mg/dL (2.5-4.9); POTASSIUM 4.2 mmol/L (3.5-5.1); SODIUM 134 mmol/L (136-145)
[2017-12-06 07:09] LABS: CREATININE 0.4 mg/dL (0.55-1.02)
[2017-12-06] MEDS: LEVOTHYROXINE NA 25 MCG TABLET (FP) PO SCH (09:17)
[2017-12-06] MEDS: POTASSIUM CHLORIDE TABS 10 MEQ TABLET.ER (FP) PO SCH ×2 (09:18→21:13)
[2017-12-06] MEDS: predniSONE 5 MG TABLET (UD) PO SCH (09:18)
[2017-12-06] MEDS: METOPROLOL TARTRATE 50 MG TABLET (FP) PO SCH (09:18)
[2017-12-06] MEDS: GABAPENTIN 300 MG CAPSULE (FP) PO SCH (09:18)
[2017-12-06] MEDS ORDERED: morphine SULFATE IMMEDIATE RELEASE 30 MG TAB PO SCH (10:00)
[2017-12-06] MEDS ORDERED: FERROUS SO4 325 MG TABLET (FP) PO SCH (10:00)
[2017-12-06] MEDS ORDERED: ASCORBIC ACID 500 MG TABLET (FP) PO SCH (10:00)
[2017-12-06] MEDS ORDERED: PANTOPRAZOLE 40 MG TABLET (FP) PO SCH (10:00)
[2017-12-06] MEDS ORDERED: METHOTREXATE 2.5 MG TABLET PO SCH (10:00)
[2017-12-06] MEDS ORDERED: MORPHINE SULFATE 10 MG/5 ML CUP PO PRN (10:01)
--- NOTE | 2017-12-06 10:11 | PN ---
Progress Note, Physician History of Present Illness: 72yF with PMH dementia, HTN, HLD, afib, hypothyroid, chronic abd pain presented to the ED with a 4 day history of poor po intake, N/V/D, abd pain. - Current Medication List Current Medications: Active Medications Amlodipine Besylate (Norvasc -) 5 mg PO HS [facility] Atorvastatin Calcium (Lipitor -) 40 mg PO HS [facility] Enalapril Maleate (Vasotec -) 20 mg PO HS [facility] Gabapentin (Neurontin -) 600 mg PO DAILY [facility] Last Admin: 12/06/17 09:18 Dose: 600 mg Levothyroxine Sodium (Synthroid -) 25 mcg PO DAILY@0700 [facility] Last Admin: 12/06/17 09:17 Dose: 25 mcg Methotrexate (Mexate -) 20 mg PO Mo@1000 [facility] Last Admin: 12/06/17 09:18 Dose: 20 mg Metoclopramide HCl (Reglan Injection -) 10 mg IVPUSH Q6H PRN PRN Reason: NAUSEA AND/OR VOMITING Metoprolol Tartrate (Lopressor -) 50 mg PO DAILY [facility] Last Admin: 12/06/17 09:18 Dose: 50 mg Metoprolol Tartrate (Lopressor -) 75 mg PO HS [facility] Mirtazapine (Remeron -) 15 mg PO HS [facility] Morphine Sulfate (Morphine Sulfate Oral Cups) 5 mg PO Q6H PRN PRN Reason: PAIN LEVEL 6-10 Pantoprazole Sodium (Protonix Iv) 40 mg IVPUSH BID [facility] Potassium Chloride (K-Dur -) 10 meq PO BID [facility] Last Admin: 12/06/17 09:18 Dose: 10 meq Prednisone (Deltasone -) 5 mg PO DAILY [facility] Last Admin: 12/06/17 09:18 Dose: 5 mg - Objective Vital Signs: Vital Signs Temperature 98.2 F 12/06/17 07:21 Pulse Rate 103 H 12/06/17 07:21 Respiratory Rate 18 12/06/17 07:21 Blood Pressure 110/53 12/06/17 07:21 O2 Sat by Pulse Oximetry (%) 97 12/06/17 07:21 Cardiovascular: Yes: Regular Rate and Rhythm Respiratory: Yes: Regular, CTA Bilaterally Gastrointestinal: Yes: Normal Bowel Sounds, Soft, Tenderness, Epigastrium Edema: No Labs: CBC, BMP 12/06/17 06:08 12/06/17 06:08 Problem List - Problems (1) Abdominal pain Assessment/Plan: 12/05/2017 19:16 EST abdominal discomfort, nausea - chronic h/o same - GI consult - reglan PRN - received 2L NS in ed, will hold on further IVF until am labs - low sodium diet as tolerated - CT without acute findings on prelim read Findings: Atelectasis and scarring in lung bases. 4 mm indeterminate left lower lobe nodule. No pleural effusions. Splenic cysts. Cholecystectomy. Hepatic granulomas. Pancreas and adrenal glands are unremarkable. 3.9 cm x 3.6 cm fusiform infrarenal abdominal aortic aneurysm. Small renal cysts. No renal or urinary calculi. Much of the colon is decompressed. No evidence for diverticulitis, appendicitis , small bowel obstruction, free pelvic fluid, or free air. Hysterectomy. THIS DOCUMENT HAS BEEN ELECTRONICALLY SIGNED Monty Mariscal MD Code(s): R10.9 - UNSPECIFIED ABDOMINAL PAIN Qualifiers: (2) Decreased appetite Assessment/Plan: as above Code(s): R63.0 - ANOREXIA (3) Nausea Assessment/Plan: -as above Code(s): R11.0 - NAUSEA (4) CAD (coronary artery disease) Assessment/Plan: - and HTN/HLD/afib - cont home meds: enalapril, norvasc, metoprolol, atorvastatin - was on hydralazine at home PRN SBP >180, will hold for now -cardio Code(s): I25.10 - ATHSCL HEART DISEASE OF [place] CORONARY ARTERY W/O ANG PCTRS (5) Rheumatoid arthritis Assessment/Plan: - cont home meds: prednisone daily, methotrexate on wednesday - IGG hold til DC Code(s): M06.9 - RHEUMATOID ARTHRITIS, UNSPECIFIED (6) Electrolyte abnormality Assessment/Plan: -hyponatremia,Hypokalemia/hypomagnesia - improved s/p IVF - urine lytes/osmo, serum osmo ordered - repleted, repeat Code(s): E87.8 - OTH DISORDERS OF ELECTROLYTE AND FLUID BALANCE, NEC
[2017-12-06] MEDS: PANTOPRAZOLE SODIUM 40 MG VIAL IVPUSH SCH ×2 (10:37→21:13)
--- NOTE | 2017-12-06 11:35 | CON.GI ---
Consult Consult Specialty:: Gastroenterology Referred by:: Dr. Fajardo Reason for Consultation:: N/V/ abdominal pain and diarrhea - History of Present Illness Chief Complaint: nausea and abdominal pain History of Present Illness: 72F with dementia was brought to ER by and daughter for 4 days h/o N/V, abdominal pain, diarrhea and poor oral intake. Diarrhea resolved with imodium. Eri has minimal pain at present and has nausea but no vomiting. No diarrhea has been noted. She has had a colonoscopy with ks on 01/09/11 when hyperplastic polyps were removed from the sigmoid colon. She has a tortuous colon with extensive diverticulosis. Similar colon findings are described by Dr. Shipman who did an EGD and colonoscopy in 2004. EGD revealed a small hiatal hernia. 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: Dementia, Peripheral Neuropathy, TIA Cardio/Vascular: Yes: Aneurysm (3.8cm AAA), HTN (controlled w/ hydralazine), Hyperlipdemia Pulmonary: Yes: Asthma, COPD Gastrointestinal: Yes: Diverticulosis, Hiatal Hernia, Other (hyperplastic sigmoid polyps removed 12/27) Hepatobiliary: Yes: Cholelithiasis, Other (fatty liver) Musculoskeletal: Yes: Other (neuropathy LE) Rheumatology: Yes: Rheumatoid Arthritis, Vasculitis (of the skin) - Past Surgical History Past Surgical History: Yes: Breast Biopsy (b/l, negative), Cholecystectomy (lap choly 05/04), Colonoscopy, Hernia Repair (umbilical hernia repair 05/04), Hysterectomy (noel/bso), Joint Replacement (Lt. THR w/ revision), Upper Endoscopy - Alcohol/Substance Use Hx Alcohol Use: No - Smoking History Smoking history: Current every day smoker Have you smoked in the past 12 months: No Aproximately how many cigarettes per day: 20 - Social History Usual Living Arrangement: With Spouse ADL: Family Assistance Place of : [facility] History of Recent Travel: No Home Medications - Allergies Allergies/Adverse Reactions: Allergies Allergy/AdvReac Type Severity Reaction Status Date / Time Sulfa (Sulfonamide Allergy Hives Verified 12/05/17 11:37 Antibiotics) dipyridamole AdvReac Mild headache Verified 12/05/17 11:37 [From Persantine] indomethacin [From Indocin] AdvReac Mild headache Verified 12/05/17 11:37 - Home Medications Home Medications: Ambulatory Orders Amlodipine Besylate [Norvasc -] 5 mg PO HS 10/26/16 Ascorbate Calcium [Vitamin C] 500 mg PO DAILY 10/26/16 Enalapril Maleate [Vasotec] 20 mg PO HS 10/26/16 Gabapentin [Neurontin] 600 mg PO DAILY 10/26/16 Immun Glob G(IgG)/Gly/Iga Ov50 [Gammagard Liquid 10% Vial] 40 ml IJ ASDIR Levothyroxine [Synthroid -] 25 mcg PO DAILY 10/26/16 Methotrexate [Mexate -] 20 mg PO Q7D 10/26/16 Metoprolol Tartrate [Lopressor -] 50 mg PO DAILY 10/26/16 Metoprolol Tartrate [Lopressor -] 75 mg PO HS 10/26/16 Mirtazapine 15 mg PO DAILY 10/26/16 Potassium Chloride [Klor-Con 10] 10 meq PO BID 10/26/16 hydrALAZINE HCL [Apresoline -] 25 mg PO DAILY PRN 10/26/16 predniSONE [Deltasone -] 5 mg PO DAILY 10/26/16 Pantoprazole Sodium [Protonix] 40 mg PO DAILY #30 tablet. 04/23/17 Atorvastatin Ca [Lipitor] 40 mg PO HS 12/06/17 B12/Levomefolate Calcium/B-6 [Folbic Rf Tablet] 2 each PO BID 12/06/17 Ferrous Sulfate 325 mg PO DAILY 12/06/17 Furosemide 20 mg PO DAILY PRN 12/06/17 Morphine *Immediate Release* [Msir -] 15 mg PO BID 12/06/17 Family Disease History - Family Disease History Family Disease History: Diabetes: Mother (: pna/dm), Son, Other: Father ( : lung cancer), Mother, Brother (lung cancer), Daughter (SLE) Other Family History: nephew had colon cancer Review of Systems - Review of Systems Constitutional: reports: Loss of Appetite, Weakness HENT: reports: No Symptoms Neck: reports: No Symptoms Cardiovascular: reports: No Symptoms Respiratory: reports: Exercise Intolerance, Wheezing Gastrointestinal: reports: Abdominal Pain, Diarrhea, Nausea, Vomiting Genitourinary: reports: No Symptoms Musculoskeletal: reports: No Symptoms Physical Exam-GI Vital Signs: Vital Signs Temperature 98.2 F 12/06/17 07:21 Pulse Rate 103 H 12/06/17 07:21 Respiratory Rate 18 12/06/17 07:21 Blood Pressure 110/53 12/06/17 07:21 O2 Sat by Pulse Oximetry (%) 97 12/06/17 07:21 CBC,CMP WBC 5.6 K/mm3 (4.0-10.0) 12/06/17 06:08 RBC 3.95 M/mm3 (3.60-5.2) 12/06/17 06:08 Hgb 11.5 GM/dL (10.7-15.3) D 12/06/17 06:08 Hct 34.2 % (32.4-45.2) 12/06/17 06:08 MCV 86.6 fl (80-96) 12/06/17 06:08 MCH 29.1 pg (25.7-33.7) 12/06/17 06:08 MCHC 33.6 g/dl (32.0-36.0) 12/06/17 06:08 RDW 21.0 % (11.6-15.6) H 12/06/17 06:08 Plt Count 229 K/MM3 (134-434) 12/06/17 06:08 MPV 6.6 fl (7.5-11.1) L 12/06/17 06:08 Neutrophils % 69.6 % (42.8-82.8) 12/06/17 06:08 Lymphocytes % 18.1 % (8-40) 12/06/17 06:08 Monocytes % 9.3 % (3.8-10.2) 12/06/17 06:08 Eosinophils % 1.9 % (0-4.5) D 12/06/17 06:08 Basophils % 1.1 % (0-2.0) 12/06/17 06:08 Sodium 134 mmol/L (136-145) L 12/06/17 06:08 Potassium 4.2 mmol/L (3.5-5.1) 12/06/17 06:08 Chloride 100 mmol/L (98-107) 12/06/17 06:08 Carbon Dioxide 28 mmol/L (21-32) 12/06/17 06:08 Anion Gap 6 (8-16) L 12/06/17 06:08 BUN 9 mg/dL (7-18) 12/06/17 06:08 Creatinine 0.4 mg/dL (0.55-1.02) L 12/06/17 06:08 Creat Clearance w eGFR > 60 (>60) 12/05/17 20:50 Random Glucose 77 mg/dL (74-106) 12/06/17 06:08 Lactic Acid 1.6 mmol/L (0.0-2.0) 12/05/17 13:00 Calcium 8.2 mg/dL (8.5-10.1) L 12/06/17 06:08 Phosphorus 2.6 mg/dL (2.5-4.9) 12/06/17 06:08 Magnesium 2.2 mg/dL (1.8-2.4) 12/06/17 06:08 Total Bilirubin 0.6 mg/dL (0.2-1.0) 12/05/17 20:50 AST 21 U/L (15-37) 12/05/17 20:50 ALT 8 U/L (12-78) L 12/05/17 20:50 Alkaline Phosphatase 68 U/L (45-117) 12/05/17 20:50 Total Protein 5.8 g/dl (6.4-8.2) L 12/05/17 20:50 Albumin 1.8 g/dl (3.4-5.0) L 12/05/17 20:50 Lipase 118 U/L (73-393) 12/05/17 20:50 TSH 0.52 uIU/ml (0.358-3.74) 12/06/17 06:08 Current Medications Generic Name Dose Route Start Last Admin Trade Name Freq PRN Reason Stop Dose Admin Amlodipine Besylate 5 mg 12/06/17 22:00 Norvasc - PO HS [facility] Atorvastatin Calcium 40 mg 12/06/17 22:00 Lipitor - PO HS [facility] Enalapril Maleate 20 mg 12/06/17 22:00 Vasotec - PO HS [facility] Gabapentin 600 mg 12/06/17 10:00 12/06/17 09:18 Neurontin - PO 600 mg DAILY [facility] Administration Levothyroxine Sodium 25 mcg 12/06/17 07:00 12/06/17 09:17 Synthroid - PO 25 mcg DAILY@0700 [facility] Administration Methotrexate 20 mg 12/06/17 10:00 12/06/17 09:18 Mexate - PO 20 mg Mo@1000 [facility] Administration Metoclopramide HCl 10 mg 12/06/17 00:56 Reglan Injection - IVPUSH Q6H PRN NAUSEA AND/OR VOMITING Metoprolol Tartrate 50 mg 12/06/17 10:00 12/06/17 09:18 Lopressor - PO 50 mg DAILY [facility] Administration Metoprolol Tartrate 75 mg 12/06/17 22:00 Lopressor - PO HS [facility] Mirtazapine 15 mg 12/06/17 22:00 Remeron - PO HS [facility] Morphine Sulfate 5 mg 12/06/17 10:01 Morphine Sulfate Oral Cups PO Q6H PRN PAIN LEVEL 6-10 Pantoprazole Sodium 40 mg 12/06/17 10:15 12/06/17 10:37 Protonix Iv IVPUSH Not Given BID [facility] Potassium Chloride 10 meq 12/06/17 10:00 12/06/17 09:18 K-Dur - PO 10 meq BID [facility] Administration Prednisone 5 mg 12/06/17 10:00 12/06/17 09:18 Deltasone - PO 5 mg DAILY [facility] Administration Constitutional: Yes: No Distress Eyes: Yes: Conjunctiva Clear HENT: Yes: Normocephalic, Other (dry tongue) Neck: Yes: Supple Cardiovascular: Yes: Regular Rate and Rhythm Respiratory: Yes: CTA Bilaterally Gastrointestinal Inspection: Yes: Scars (healed laparoscopic incisions) ...Auscultate: Yes: Normoactive Bowel Sounds ...Palpate: Yes: Soft, Other (nontender) ...Percussion: Yes: Tympanitic ...Rectal Exam: Yes: Guaiac Negative, Sphincter Tone Normal (no rectal masses, brown guaiac negative stool) Edema: No Neurological: Yes: Alert, Confusion (mild) Labs: CBC, BMP 12/06/17 06:08 12/06/17 06:08 Laboratory Tests 12/05/17 12/05/17 12/06/17 20:50 20:50 06:08 WBC 5.6 Hgb 11.5 D Sodium 136 Potassium 2.8 L* Albumin 1.8 L Lipase 118 Imaging - Results Cat Scan: Image Reviewed (fatty liver, splenic cyst, no obstruction) Problem List - Problems (1) Abdominal pain Assessment/Plan: Given the seemingly rapid resolution and lack of WBC elevation I suspect that Eri has a viral gastroenteritis. Would advance diet as tolerated. Given only hyperplastic polyps and no first degree relatives with colon cancer and with no occult bleeding Eri does not meet Medicare criteria for a repeat colonoscopy at his point. If pain persists an EGD will need to be considered to exclude an ulcer or UGI neoplasm. Code(s): R10.9 - UNSPECIFIED ABDOMINAL PAIN Qualifiers: (2) Diverticula of colon Code(s): K57.30 - DVRTCLOS OF LG INT W/O PERFORATION OR ABSCESS W/O BLEEDING (3) Hyperplastic colonic polyp Code(s): K63.5 - POLYP OF COLON (4) Fatty (change of) liver, not elsewhere classified Code(s): K76.0 - FATTY (CHANGE OF) LIVER, NOT ELSEWHERE CLASSIFIED (5) S/P cholecystectomy Code(s): Z90.49 - ACQUIRED ABSENCE OF OTHER SPECIFIED PARTS OF DIGESTIVE TRACT (6) Nausea Code(s): R11.0 - NAUSEA
--- NOTE | 2017-12-06 13:57 | CON.CARD ---
Cardiology Consult (text) - Consultation Consultation Note: CC: n/v 72 yo with htn, hld, possible cad (+mibi), Aneurysm (3.8cm AAA), copd, autoimmune peripheral neuropathy, mild dementia, tia, Diverticulosis, Hiatal Hernia, fatty liver, cholelithiasis, RA, who p/w nausea. sx's x 2 weeks. + diarrhea. + poor po intake. No cp, sob, palps, dizzy, loc, pnd, orthopnea, le edema, anginal sxs. pmh: per hpi psh: Breast Biopsy (b/l, negative), Cholecystectomy (lap choly 05/04), Colonoscopy, Hernia Repair (umbilical hernia repair 05/04), Hysterectomy (noel/ bso), Joint Replacement (Lt. THR w/ revision), Upper Endoscopy social: + tobacco fam: no premature cad/scd ros: per hpi; no f/c/s, vomiting, cough, nasal congestion, vision changes, troncoso, rash. Ambulatory Orders Amlodipine Besylate [Norvasc -] 5 mg PO HS 10/26/16 Ascorbate Calcium [Vitamin C] 500 mg PO DAILY 10/26/16 Enalapril Maleate [Vasotec] 20 mg PO HS 10/26/16 Gabapentin [Neurontin] 600 mg PO DAILY 10/26/16 Immun Glob G(IgG)/Gly/Iga Ov50 [Gammagard Liquid 10% Vial] 40 ml IJ ASDIR Levothyroxine [Synthroid -] 25 mcg PO DAILY 10/26/16 Methotrexate [Mexate -] 20 mg PO Q7D 10/26/16 Metoprolol Tartrate [Lopressor -] 50 mg PO DAILY 10/26/16 Metoprolol Tartrate [Lopressor -] 75 mg PO HS 10/26/16 Mirtazapine 15 mg PO DAILY 10/26/16 Potassium Chloride [Klor-Con 10] 10 meq PO BID 10/26/16 hydrALAZINE HCL [Apresoline -] 25 mg PO DAILY PRN 10/26/16 predniSONE [Deltasone -] 5 mg PO DAILY 10/26/16 Pantoprazole Sodium [Protonix] 40 mg PO DAILY #30 tablet. 04/23/17 Atorvastatin Ca [Lipitor] 40 mg PO HS 12/06/17 B12/Levomefolate Calcium/B-6 [Folbic Rf Tablet] 2 each PO BID 12/06/17 Ferrous Sulfate 325 mg PO DAILY 12/06/17 Furosemide 20 mg PO DAILY PRN 12/06/17 Morphine *Immediate Release* [Msir -] 15 mg PO BID 12/06/17 Current Medications Amlodipine Besylate (Norvasc -) 5 mg PO HS [facility] Atorvastatin Calcium (Lipitor -) 40 mg PO HS [facility] Enalapril Maleate (Vasotec -) 20 mg PO HS [facility] Gabapentin (Neurontin -) 600 mg PO DAILY [facility] Last Admin: 12/06/17 09:18 Dose: 600 mg Levothyroxine Sodium (Synthroid -) 25 mcg PO DAILY@0700 [facility] Last Admin: 12/06/17 09:17 Dose: 25 mcg Methotrexate (Mexate -) 20 mg PO Mo@1000 [facility] Last Admin: 12/06/17 09:18 Dose: 20 mg Metoclopramide HCl (Reglan Injection -) 10 mg IVPUSH Q6H PRN PRN Reason: NAUSEA AND/OR VOMITING Last Admin: 12/06/17 12:41 Dose: 10 mg Metoprolol Tartrate (Lopressor -) 50 mg PO DAILY [facility] Last Admin: 12/06/17 09:18 Dose: 50 mg Metoprolol Tartrate (Lopressor -) 75 mg PO HS [facility] Mirtazapine (Remeron -) 15 mg PO HS [facility] Morphine Sulfate (Morphine Sulfate Oral Cups) 5 mg PO Q6H PRN PRN Reason: PAIN LEVEL 6-10 Last Admin: 12/06/17 12:41 Dose: 5 mg Pantoprazole Sodium (Protonix Iv) 40 mg IVPUSH BID [facility] Last Admin: 12/06/17 10:37 Dose: Not Given Potassium Chloride (K-Dur -) 10 meq PO BID [facility] Last Admin: 12/06/17 09:18 Dose: 10 meq Prednisone (Deltasone -) 5 mg PO DAILY [facility] Last Admin: 12/06/17 09:18 Dose: 5 mg Vital Signs - 24 hr 12/05/17 12/05/17 12/06/17 15:15 19:46 01:29 Temperature 98.1 F Pulse Rate Pulse Rate [ 124 H 103 H 94 H Apical] Respiratory 20 20 18 Rate Blood Pressure Blood Pressure 137/74 143/70 128/68 [Right Arm] O2 Sat by Pulse 95 94 L 95 Oximetry (%) 12/06/17 12/06/17 07:21 11:00 Temperature 98.2 F 98.1 F Pulse Rate 98 H Pulse Rate [ 103 H Apical] Respiratory 18 20 Rate Blood Pressure 132/67 Blood Pressure 110/53 [Right Arm] O2 Sat by Pulse 97 Oximetry (%) Intake & Output 12/04/17 12/05/17 12/06/17 12/07/17 07:59 07:59 07:59 07:59 Intake Total 2100 Balance 2100 Weight 125 lb nad no jvd rrr s1s2 no mrg cta bl nl eff aaox3 no le e/c/c abd mild epigastric tenderness, nd, pos bs no jaundice diaphoresis +dp pt, no carotid bruits CBC, BMP 12/06/17 06:08 12/06/17 06:08 Laboratory Tests 12/05/17 12/05/17 12/06/17 20:50 22:01 06:08 Magnesium 1.3 L 2.2 Albumin 1.8 L ekg: sr with pac's no acute ischemic changes. abd ct: images and report reviewed. 72 yo with htn, hld, possible cad (+mibi), Aneurysm (3.8cm AAA), copd, autoimmune peripheral neuropathy, mild dementia, tia, Diverticulosis, Hiatal Hernia, fatty liver, cholelithiasis, RA, who p/w nausea. htn: -bp control complicated by h/o labile bp's, med non-adherence/confusion at times , and h/o marked orthosatic hypotension with syncope in past. has had no syncope/positional LH sx's in long time, off fludrocortisone since 2015 due to spikes in BPs at that time - controlled on current regimen, con't. hld: -cont statin possible cad: -prior mibi 2012 reported low-risk area of (septal) ischemia and has been managed medically with no angina sx's. pt with extensive atherosclerotic aorta vascular disease. normal lvef -no angina suspected here -cont home statin, bb, acei. Has been off ASA due to GI conditions. copd with hypoxia, pulm HTN: - stable sx's. mgm't per pmd. thoracic and abdominal aorta aneurysms: -known ascending, descending aorta aneurysm and AAA. ongoing outpatient surveillance with outpatient cardiology. -bp control as doing, + tob - cessation counseling.
[2017-12-06 14:46] LABS: OSMOLALITY,SERUM 270 mosm/kg (278-305)
[2017-12-06] MEDS ORDERED: PT OWN MED DRAWER 7, Y5N ONE (18:55)
[2017-12-06] MEDS: METOPROLOL TARTRATE 25 MG TABLET (FP) PO SCH (21:13)
[2017-12-06] MEDS: ATORVASTATIN CA 40 MG TABLET (FP) PO SCH (21:13)
[2017-12-06] MEDS: ENALAPRIL MALEATE 10 MG TABLET (FP) PO SCH (21:14)
[2017-12-06] MEDS: MIRTAZAPINE 15 MG TABLET (FP) PO SCH (21:14)
[2017-12-06] MEDS: amLODIPine BESYLATE 5 MG TABLET (FP) PO SCH (21:14)
--- NOTE | 2017-12-06 23:44 | EKG ---
Test Reason : Blood Pressure : / mmHG Vent. Rate : 093 BPM Atrial Rate : 093 BPM P-R Int : 182 ms QRS Dur : 076 ms QT Int : 368 ms P-R-T Axes : 042 019 045 degrees QTc Int : 457 ms SINUS RHYTHM WITH MARKED SINUS ARRHYTHMIA OTHERWISE NORMAL ECG WHEN COMPARED WITH ECG OF 05-DEC-2017 13:59, T WAVE VARIATION Confirmed by JERILYN JONES MD ([id number]) on 12/06/2017 11:43:54 PM Referred By: Confirmed By:JERILYN JONES MD
--- NOTE | 2017-12-06 23:57 | EKG ---
Test Reason : Blood Pressure : / mmHG Vent. Rate : 106 BPM Atrial Rate : 106 BPM P-R Int : 180 ms QRS Dur : 076 ms QT Int : 350 ms P-R-T Axes : 024 -05 027 degrees QTc Int : 464 ms SINUS TACHYCARDIA WITH PREMATURE ATRIAL COMPLEXES NONSPECIFIC T WAVE ABNORMALITY ABNORMAL ECG WHEN COMPARED WITH ECG OF 20-APR-2017 15:15, PREMATURE ATRIAL COMPLEXES ARE NOW PRESENT VENT. RATE HAS INCREASED BY 44 BPM T WAVE VARIATION Confirmed by JERILYN JONES MD ([id number]) on 12/06/2017 11:56:59 PM Referred By: Confirmed By:JERILYN JONES MD
[2017-12-07] MEDS: LEVOTHYROXINE NA 25 MCG TABLET (FP) PO SCH (06:18)
--- NOTE | 2017-12-07 08:20 | PN ---
Progress Note, Physician History of Present Illness: 72yF with PMH dementia, HTN, HLD, afib, hypothyroid, chronic abd pain presented to the ED with a 4 day history of poor po intake, N/V/D, abd pain. - Current Medication List Current Medications: Active Medications Amlodipine Besylate (Norvasc -) 5 mg PO HS [facility] Last Admin: 12/06/17 21:14 Dose: Not Given Atorvastatin Calcium (Lipitor -) 40 mg PO [facility] Last Admin: 12/06/17 21:13 Dose: 40 mg Enalapril Maleate (Vasotec -) 20 mg PO HS [facility] Last Admin: 12/06/17 21:14 Dose: 20 mg Gabapentin (Neurontin -) 600 mg PO DAILY [facility] Last Admin: 12/06/17 09:18 Dose: 600 mg Levothyroxine Sodium (Synthroid -) 25 mcg PO DAILY@0700 [facility] Last Admin: 12/07/17 06:18 Dose: 25 mcg Methotrexate (Mexate -) 20 mg PO Mo@1000 [facility] Last Admin: 12/06/17 09:18 Dose: 20 mg Metoclopramide HCl (Reglan Injection -) 10 mg IVPUSH Q6H PRN PRN Reason: NAUSEA AND/OR VOMITING Last Admin: 12/06/17 12:41 Dose: 10 mg Metoprolol Tartrate (Lopressor -) 50 mg PO DAILY [facility] Last Admin: 12/06/17 09:18 Dose: 50 mg Metoprolol Tartrate (Lopressor -) 75 mg PO [facility] Last Admin: 12/06/17 21:13 Dose: 75 mg Mirtazapine (Remeron -) 15 mg PO [facility] Last Admin: 12/06/17 21:14 Dose: 15 mg Morphine Sulfate (Morphine 10 Mg/5 Ml Liquid) 5 mg PO Q6H PRN PRN Reason: PAIN LEVEL 6-10 Pantoprazole Sodium (Protonix Iv) 40 mg IVPUSH BID [facility] Last Admin: 12/06/17 21:13 Dose: 40 mg Potassium Chloride (K-Dur -) 10 meq PO BID [facility] Last Admin: 12/06/17 21:13 Dose: 10 meq Prednisone (Deltasone -) 5 mg PO DAILY [facility] Last Admin: 12/06/17 09:18 Dose: 5 mg - Objective Vital Signs: Vital Signs Temperature 98.5 F 12/07/17 07:00 Pulse Rate 88 12/07/17 07:00 Respiratory Rate 20 12/07/17 07:00 Blood Pressure 138/70 12/07/17 07:00 O2 Sat by Pulse Oximetry (%) 98 12/06/17 21:00 Cardiovascular: Yes: S1, S2 Respiratory: Yes: Regular, CTA Bilaterally Gastrointestinal: Yes: Normal Bowel Sounds, Soft. No: Tenderness Labs: CBC, BMP 12/06/17 06:08 12/06/17 06:08 Problem List - Problems (1) Abdominal pain Assessment/Plan: 12/05/2017 19:16 EST abdominal discomfort, nausea - chronic h/o same - GI consult - reglan PRN - received 2L NS in ed, will hold on further IVF until am labs - low sodium diet as tolerated - CT without acute findings on prelim read Findings: Atelectasis and scarring in lung bases. 4 mm indeterminate left lower lobe nodule. No pleural effusions. Splenic cysts. Cholecystectomy. Hepatic granulomas. Pancreas and adrenal glands are unremarkable. 3.9 cm x 3.6 cm fusiform infrarenal abdominal aortic aneurysm. Small renal cysts. No renal or urinary calculi. Much of the colon is decompressed. No evidence for diverticulitis, appendicitis , small bowel obstruction, free pelvic fluid, or free air. Hysterectomy. THIS DOCUMENT HAS BEEN ELECTRONICALLY SIGNED Monty Mariscal MD ugi series Code(s): R10.9 - UNSPECIFIED ABDOMINAL PAIN Qualifiers: (2) Decreased appetite Assessment/Plan: as above Code(s): R63.0 - ANOREXIA (3) Nausea Assessment/Plan: -as above Code(s): R11.0 - NAUSEA (4) CAD (coronary artery disease) Assessment/Plan: - and HTN/HLD/afib - cont home meds: enalapril, norvasc, metoprolol, atorvastatin - was on hydralazine at home PRN SBP >180, will hold for now -cardio Code(s): I25.10 - ATHSCL HEART DISEASE OF [place] CORONARY ARTERY W/O ANG PCTRS (5) Rheumatoid arthritis Assessment/Plan: - cont home meds: prednisone daily, methotrexate on wednesday - IGG hold til DC Code(s): M06.9 - RHEUMATOID ARTHRITIS, UNSPECIFIED (6) Electrolyte abnormality Assessment/Plan: -hyponatremia,Hypokalemia/hypomagnesia - improved s/p IVF - urine lytes/osmo, serum osmo ordered - repleted, repeat Code(s): E87.8 - OTH DISORDERS OF ELECTROLYTE AND FLUID BALANCE, NEC
[2017-12-07] MEDS: METOPROLOL TARTRATE 50 MG TABLET (FP) PO SCH (09:39)
[2017-12-07] MEDS: GABAPENTIN 300 MG CAPSULE (FP) PO SCH (09:39)
[2017-12-07] MEDS: predniSONE 5 MG TABLET (UD) PO SCH (09:39)
[2017-12-07] MEDS: PANTOPRAZOLE SODIUM 40 MG VIAL IVPUSH SCH (09:40)
[2017-12-07] MEDS: POTASSIUM CHLORIDE TABS 10 MEQ TABLET.ER (FP) PO SCH ×2 (09:40→22:53)
[2017-12-07] MEDS: morphine SULFATE 10 MG/5 ML UNIT-DOSE CUP PO PRN (09:57)
[2017-12-07 11:58] LABS: BASO % 1.3 % (0-2.0); HEMATOCRIT 35.2 % (32.4-45.2); HEMOGLOBIN 11.8 GM/dL (10.7-15.3); MCH 28.9 pg (25.7-33.7); MCHC 33.5 g/dl (32.0-36.0); MEAN CELL VOLUME 86.2 fl (80-96); MEAN PLT VOLUME 6.4 fl (7.5-11.1); MONO % 7.2 % (3.8-10.2); NEUT % 75.5 % (42.8-82.8); PLATELET COUNT 225 K/MM3 (134-434); RBC 4.08 M/mm3 (3.60-5.2); RDW 20.4 % (11.6-15.6); WHITE BLOOD COUNT 5.9 K/mm3 (4.0-10.0)
[2017-12-07 12:46] LABS: ALBUMIN 2.1 g/dl (3.4-5.0); ANION GAP 7 (8-16); BLOOD UREA NITROGEN 4 mg/dL (7-18); CALCIUM 7.8 mg/dL (8.5-10.1); CHLORIDE 95 mmol/L (98-107); CO2 29 mmol/L (21-32); GLUCOSE,RANDOM 92 mg/dL (74-106); POTASSIUM 3.6 mmol/L (3.5-5.1); SODIUM 131 mmol/L (136-145)
[2017-12-07 12:50] LABS: ALK PHOS 76 U/L (45-117); BILIRUBIN,TOTAL 0.9 mg/dL (0.2-1.0); CREATININE 0.3 mg/dL (0.55-1.02); SGOT/AST 18 U/L (15-37); SGPT/ALT 9 U/L (12-78); TOT PROT 6.4 g/dl (6.4-8.2)
--- NOTE | 2017-12-07 14:45 | PN ---
Progress Note (short form) - Note Progress Note: CC: n/v S: n/v improving. no cp, palps, dizziness, sob. Current Medications Amlodipine Besylate (Norvasc -) 5 mg PO [facility] Last Admin: 12/06/17 21:14 Dose: Not Given Atorvastatin Calcium (Lipitor -) 40 mg PO [facility] Last Admin: 12/06/17 21:13 Dose: 40 mg Enalapril Maleate (Vasotec -) 20 mg PO [facility] Last Admin: 12/06/17 21:14 Dose: 20 mg Gabapentin (Neurontin -) 600 mg PO DAILY [facility] Last Admin: 12/07/17 09:39 Dose: 600 mg Levothyroxine Sodium (Synthroid -) 25 mcg PO DAILY@0700 [facility] Last Admin: 12/07/17 06:18 Dose: 25 mcg Methotrexate (Mexate -) 20 mg PO Mo@1000 [facility] Last Admin: 12/06/17 09:18 Dose: 20 mg Metoclopramide HCl (Reglan Injection -) 10 mg IVPUSH Q6H PRN PRN Reason: NAUSEA AND/OR VOMITING Last Admin: 12/06/17 12:41 Dose: 10 mg Metoprolol Tartrate (Lopressor -) 50 mg PO DAILY [facility] Last Admin: 12/07/17 09:39 Dose: 50 mg Metoprolol Tartrate (Lopressor -) 75 mg PO [facility] Last Admin: 12/06/17 21:13 Dose: 75 mg Mirtazapine (Remeron -) 15 mg PO [facility] Last Admin: 12/06/17 21:14 Dose: 15 mg Morphine Sulfate (Morphine 10 Mg/5 Ml Liquid) 5 mg PO Q6H PRN PRN Reason: PAIN LEVEL 6-10 Last Admin: 12/07/17 09:57 Dose: 5 mg Pantoprazole Sodium (Protonix Iv) 40 mg IVPUSH BID [facility] Last Admin: 12/07/17 09:40 Dose: 40 mg Potassium Chloride (K-Dur -) 10 meq PO BID [facility] Last Admin: 12/07/17 09:40 Dose: 10 meq Prednisone (Deltasone -) 5 mg PO DAILY [facility] Last Admin: 12/07/17 09:39 Dose: 5 mg Vital Signs - 24 hr 12/06/17 12/06/17 12/06/17 17:06 18:00 19:12 Temperature 97.6 F 98.2 F Pulse Rate 94 H 89 Respiratory 20 20 Rate Blood Pressure 141/76 129/76 O2 Sat by Pulse 95 Oximetry (%) 12/06/17 12/07/17 12/07/17 21:00 02:00 02:31 Temperature 97.4 F L 98.8 F Pulse Rate 98 H 81 Respiratory 20 20 20 Rate Blood Pressure 145/78 136/55 O2 Sat by Pulse 98 Oximetry (%) 12/07/17 12/07/17 07:00 09:20 Temperature 98.5 F 98 F Pulse Rate 88 89 Respiratory 20 20 Rate Blood Pressure 138/70 133/60 O2 Sat by Pulse Oximetry (%) Intake & Output 12/05/17 12/06/17 12/07/17 12/08/17 07:59 07:59 07:59 07:59 Intake Total 2100 600 Balance 2100 600 Weight 125 lb 124 lb 2 oz nad no jvd rrr s1s2 no mrg cta bl nl eff aaox3 no le e/c/c abd mild epigastric tenderness, nd, pos bs no jaundice diaphoresis +dp pt, no carotid bruits CBC, BMP 12/07/17 11:45 12/07/17 11:45 ekg: sr with pac's no acute ischemic changes. abd ct: images and report reviewed. 72 yo with htn, hld, possible cad (+mibi), Aneurysm (3.8cm AAA), copd, autoimmune peripheral neuropathy, mild dementia, tia, Diverticulosis, Hiatal Hernia, fatty liver, cholelithiasis, RA, who p/w nausea. htn: -bp control complicated by h/o labile bp's, med non-adherence/confusion at times , and h/o marked orthosatic hypotension with syncope in past. has had no syncope/positional LH sx's in long time, off fludrocortisone since 2016 due to spikes in BPs at that time - controlled on current regimen, con't. hld: -cont statin possible cad: -prior mibi 2012 reported low-risk area of (septal) ischemia and has been managed medically with no angina sx's. pt with extensive atherosclerotic aorta vascular disease. normal lvef -no angina suspected here -cont home statin, bb, acei. Has been off ASA due to GI conditions. copd with hypoxia, pulm HTN: - stable sx's. mgm't per pmd. thoracic and abdominal aorta aneurysms: -known ascending, descending aorta aneurysm and AAA. ongoing outpatient surveillance with outpatient cardiology. -bp control as doing, + tob - cessation counseling.
--- NOTE | 2017-12-07 17:48 | PN ---
Progress Note (short form) - Note Progress Note: Vascular Surgery Pt seen and examined. Bl lower ext swelling. Good dopplerable pulses in both feet. Some redness in toes secondary to low flow state. Will order compression for swelling in legs. Leg elevation. No need for any intervention. medical management. Wilfredo Garcia DO
--- NOTE | 2017-12-07 17:50 | PN ---
GI Progress Note Subjective: GI Note: NO fever. WBC stable. Hypokalemia corrected. Complaining that she is hungry and wants more to eat. Denies abdominal pain, nause and diarrhea - Objective Vital Signs: Vital Signs Temperature 98.2 F 12/07/17 14:36 Pulse Rate 80 12/07/17 14:36 Respiratory Rate 20 12/07/17 14:36 Blood Pressure 129/60 12/07/17 14:36 O2 Sat by Pulse Oximetry (%) 95 12/07/17 10:55 Laboratory Tests 12/05/17 12/06/17 12/07/17 13:00 06:08 11:45 WBC 7.1 5.9 Hgb 11.5 D 11.8 Potassium 12/07/17 11:45 WBC Hgb Potassium 3.6 Constitutional: No Distress ...Auscultate: Yes: Normoactive Bowel Sounds ...Palpate: Yes: Soft, Other (nontender) Labs: CBC, BMP 12/07/17 11:45 12/07/17 11:45 Problem List - Problems (1) Abdominal pain Assessment/Plan: Resolved viral gastroenteritis. Will advance diet. If tolerated can discharge. Code(s): R10.9 - UNSPECIFIED ABDOMINAL PAIN Qualifiers: (2) Diverticula of colon Code(s): K57.30 - DVRTCLOS OF LG INT W/O PERFORATION OR ABSCESS W/O BLEEDING (3) Hyperplastic colonic polyp Code(s): K63.5 - POLYP OF COLON (4) Fatty (change of) liver, not elsewhere classified Code(s): K76.0 - FATTY (CHANGE OF) LIVER, NOT ELSEWHERE CLASSIFIED (5) S/P cholecystectomy Code(s): Z90.49 - ACQUIRED ABSENCE OF OTHER SPECIFIED PARTS OF DIGESTIVE TRACT (6) Nausea Code(s): R11.0 - NAUSEA
[2017-12-07 18:18] LABS: URINE APPEARANCE SLCLOUDY; URINE BILIRUBIN NEGATIVE (<2.0 mg/dL); URINE BLOOD 2+ (NEGATIVE); URINE COLOR LTYELLOW; URINE GLUCOSE (UA) NEGATIVE (NEGATIVE); URINE KETONE NEGATIVE (NEGATIVE); URINE NITRITE NEGATIVE (NEGATIVE); URINE PROTEIN NEGATIVE (NEGATIVE)
[2017-12-07 18:32] LABS: URINE LEUK ESTERASE 2+ (NEGATIVE)
[2017-12-07 18:39] LABS: EPI CELLS MODERATE /HPF (FEW); URINE BACTERIA MODERATE /hpf (NONE SEEN)
[2017-12-07] MEDS: ENALAPRIL MALEATE 10 MG TABLET (FP) PO SCH (22:52)
[2017-12-07] MEDS: MIRTAZAPINE 15 MG TABLET (FP) PO SCH (22:52)
[2017-12-07] MEDS: amLODIPine BESYLATE 5 MG TABLET (FP) PO SCH (22:53)
[2017-12-07] MEDS: ATORVASTATIN CA 40 MG TABLET (FP) PO SCH (22:53)
[2017-12-07] MEDS: METOPROLOL TARTRATE 25 MG TABLET (FP) PO SCH (22:53)
[2017-12-07] MEDS: PANTOPRAZOLE 40 MG TABLET (FP) PO SCH (22:53)
[2017-12-08 08:03] LABS: ANION GAP 5 (8-16); BLOOD UREA NITROGEN 4 mg/dL (7-18); CALCIUM 8.2 mg/dL (8.5-10.1); CHLORIDE 96 mmol/L (98-107); CO2 33 mmol/L (21-32); CREATININE 0.3 mg/dL (0.55-1.02); GLUCOSE,RANDOM 77 mg/dL (74-106); MAGNESIUM 1.7 mg/dL (1.8-2.4); POTASSIUM 3.4 mmol/L (3.5-5.1); SODIUM 134 mmol/L (136-145)
[2017-12-08] MEDS: LEVOTHYROXINE NA 25 MCG TABLET (FP) PO SCH ×2 (08:09→09:59)
[2017-12-08] MEDS: PANTOPRAZOLE 40 MG TABLET (FP) PO SCH (09:59)
[2017-12-08] MEDS: GABAPENTIN 300 MG CAPSULE (FP) PO SCH (09:59)
[2017-12-08] MEDS: POTASSIUM CHLORIDE TABS 10 MEQ TABLET.ER (FP) PO SCH (09:59)
[2017-12-08] MEDS: predniSONE 5 MG TABLET (UD) PO SCH (09:59)
[2017-12-08] MEDS: METOPROLOL TARTRATE 50 MG TABLET (FP) PO SCH (09:59)
[2017-12-08] MEDS: morphine SULFATE 10 MG/5 ML UNIT-DOSE CUP PO PRN (10:15)
--- NOTE | 2017-12-08 10:37 | DS ---
Physical Examination Vital Signs: Vital Signs Temperature 98.4 F 12/08/17 06:00 Pulse Rate 99 H 12/08/17 06:00 Respiratory Rate 20 12/08/17 06:00 Blood Pressure 154/75 12/08/17 06:00 O2 Sat by Pulse Oximetry (%) 95 12/08/17 02:00 Findings/Remarks: NOTES REVIEWED NO DISTRESS DENIES PAIN EATING WELL Constitutional: Yes: No Distress Eyes: Yes: WNL HENT: Yes: WNL Neck: Yes: WNL Cardiovascular: Yes: WNL Respiratory: Yes: WNL Gastrointestinal: Yes: WNL Musculoskeletal: Yes: WNL Extremities: Yes: WNL Edema: Yes Edema: LLE: 1+, RLE: 1+ Peripheral Pulses WNL: Yes Integumentary: Yes: WNL Wound/Incision: Yes: Clean/Dry Neurological: Yes: WNL, Pre-Existing Deficit ...Motor Strength: WNL Psychiatric: Yes: WNL Labs: CBC, BMP 12/07/17 11:45 12/08/17 06:30 Discharge Summary Reason For Visit: URINARY TRACT INFECTION Current Active Problems Abdominal pain (Acute) Decreased appetite (Acute) Diverticula of colon (Acute) Electrolyte abnormality (Acute) Fatty (change of) liver, not elsewhere classified (Acute) Hyperplastic colonic polyp (Acute) Nausea (Acute) S/P cholecystectomy (Acute) UTI (urinary tract infection) (Acute) Procedures: Principal: BARIUM GI STUDY Hospital Course: OBSERVATION STATUS FOR ABD CHRISTOFER, GASTROENTERITIS, TREEATED WITH PAIN MEDS AND IV FLUIDS GI WORKUP CONTINUE OUTPATIENT Condition: Stable - Instructions Diet, Activity, Other Instructions: LOW SODIUM SEE DR CAMPOS AND EMILY IN 1 2-DAYS Referrals: Devin Fajardo MD [Primary Care Provider] - Disposition: VNS/HOME HEALTH CARE - Home Medications Comprehensive Discharge Medication List: Ambulatory Orders Amlodipine Besylate [Norvasc -] 5 mg PO HS 10/26/16 Ascorbate Calcium [Vitamin C] 500 mg PO DAILY 10/26/16 Enalapril Maleate [Vasotec] 20 mg PO HS 10/26/16 Gabapentin [Neurontin] 600 mg PO DAILY 10/26/16 Immun Glob G(IgG)/Gly/Iga Ov50 [Gammagard Liquid 10% Vial] 40 ml IJ ASDIR Levothyroxine [Synthroid -] 25 mcg PO DAILY 10/26/16 Methotrexate [Mexate -] 20 mg PO Q7D 10/26/16 Metoprolol Tartrate [Lopressor -] 50 mg PO DAILY 10/26/16 Metoprolol Tartrate [Lopressor -] 75 mg PO HS 10/26/16 Mirtazapine 15 mg PO DAILY 10/26/16 Potassium Chloride [Klor-Con 10] 10 meq PO BID 10/26/16 hydrALAZINE HCL [Apresoline -] 25 mg PO DAILY PRN 10/26/16 predniSONE [Deltasone -] 5 mg PO DAILY 10/26/16 Atorvastatin Ca [Lipitor] 40 mg PO HS 12/06/17 B12/Levomefolate Calcium/B-6 [Folbic Rf Tablet] 2 each PO BID 12/06/17 Ferrous Sulfate 325 mg PO DAILY 12/06/17 Furosemide 20 mg PO DAILY PRN 12/06/17 Morphine *Immediate Release* [Msir -] 15 mg PO BID 12/06/17 Pantoprazole Sodium [Protonix -] 40 mg PO BID tablet.ec 12/08/17
--- NOTE | 2017-12-08 11:40 | PN ---
Progress Note (short form) - Note Progress Note: CC: n/v S: n/v resolved; no cp, palps, dizziness, sob. Current Medications Generic Name Dose Route Start Last Admin Trade Name Freq PRN Reason Stop Dose Admin Amlodipine Besylate 5 mg 12/06/17 22:00 12/07/17 22:53 Norvasc - PO 5 mg HS MAUREEN Administration Atorvastatin Calcium 40 mg 12/06/17 22:00 12/07/17 22:53 Lipitor - PO 40 mg HS [facility] Administration Enalapril Maleate 20 mg 12/06/17 22:00 12/07/17 22:52 Vasotec - PO 20 mg HS [facility] Administration Gabapentin 600 mg 12/06/17 10:00 12/08/17 09:59 Neurontin - PO 600 mg DAILY [facility] Administration Levothyroxine Sodium 25 mcg 12/06/17 07:00 12/08/17 09:59 Synthroid - PO 25 mcg DAILY@0700 [facility] Administration Methotrexate 20 mg 12/06/17 10:00 12/06/17 09:18 Mexate - PO 20 mg Mo@1000 [facility]UREEN Administration Metoprolol Tartrate 50 mg 12/06/17 10:00 12/08/17 09:59 Lopressor - PO 50 mg DAILY [facility] Administration Metoprolol Tartrate 75 mg 12/06/17 22:00 12/07/17 22:53 Lopressor - PO 75 mg HS [facility] Administration Mirtazapine 15 mg 12/06/17 22:00 12/07/17 22:52 Remeron - PO 15 mg HS [facility] Administration Morphine Sulfate 5 mg 12/07/17 04:15 12/08/17 10:15 Morphine 10 Mg/5 Ml Liquid PO 5 mg Q6H PRN Administration PAIN LEVEL 6-10 Pantoprazole Sodium 40 mg 12/07/17 22:00 12/08/17 09:59 Protonix - PO 40 mg BID [facility] Administration Potassium Chloride 10 meq 12/06/17 10:00 12/08/17 09:59 K-Dur - PO 10 meq BID [facility]EN Administration Prednisone 5 mg 12/06/17 10:00 12/08/17 09:59 Deltasone - PO 5 mg DAILY [facility] Administration Vital Signs Period Temp Pulse Resp BP Sys/[place] Pulse Ox Last 24 Hr 98.2 F-98.6 F 80-99 17-20 129-154/54-75 95 nad no jvd rrr s1s2 no mrg cta bl nl eff aaox3 no le e/c/c abd nt, nd, pos bs no jaundice diaphoresis CBC, BMP 12/07/17 11:45 12/08/17 06:30 ekg: sr with pac's no acute ischemic changes. abd ct: images and report reviewed. a/p: 72 yo with htn, hld, possible cad (+mibi), Aneurysm (3.8cm AAA), copd, autoimmune peripheral neuropathy, mild dementia, tia, Diverticulosis, Hiatal Hernia, fatty liver, cholelithiasis, RA, who p/w nausea. htn: -bp control complicated by h/o labile bp's, med non-adherence/confusion at times , and h/o marked orthosatic hypotension with syncope in past. has had no syncope/positional LH sx's in long time, off fludrocortisone since 2015 due to spikes in BPs at that time - controlled on current regimen, con't. hld: -cont statin possible cad: -prior mibi 2012 reported low-risk area of (septal) ischemia and has been managed medically with no angina sx's. pt with extensive atherosclerotic aorta vascular disease. normal lvef -no angina suspected here -cont home statin, bb, acei. Has been off ASA due to GI conditions. copd with hypoxia, pulm HTN: - stable sx's. mgm't per pmd. thoracic and abdominal aorta aneurysms: -known ascending, descending aorta aneurysm and AAA. ongoing outpatient surveillance with outpatient cardiology. -bp control as doing, + tob - cessation counseling. cardiac soria stable for dc
[2017-12-08 13:22] VITALS: BP 145/83; PULSE 88; TEMP 99
== END 2017-12-08 14:47 | disposition home health service (06) ==
LOC: JER 11:27 → JERBED 22:46 → J5S 12-06 17:45
PROVIDERS: ADMIT Internal Medicine; ATTEND Family Medicine
PROC: 3E033GC Introduction of Other Therapeutic Substance into Peripheral Vein, Percutaneous Approach (ICD-10-PCS; principal; 2017-12-05)
PROC: 3E033GC Introduction of Other Therapeutic Substance into Peripheral Vein, Percutaneous Approach (ICD-10-PCS; 2017-12-05)
DX: N39.0 Urinary tract infection, site not specified (principal); R10.9 Unspecified abdominal pain; R63.0 Anorexia; R11.0 Nausea; E87.1 Hypo-osmolality and hyponatremia; E87.6 Hypokalemia; E83.42 Hypomagnesemia; I10 Essential (primary) hypertension; E78.5 Hyperlipidemia, unspecified; I48.91 Unspecified atrial fibrillation; M06.9 Rheumatoid arthritis, unspecified; E03.9 Hypothyroidism, unspecified; G89.29 Other chronic pain; Z88.2 Allergy status to sulfonamides; Z88.8 Allergy status to other drugs, medicaments and biological substances; Z96.642 Presence of left artificial hip joint; K57.30 Diverticulosis of large intestine without perforation or abscess without bleeding; F17.200 Nicotine dependence, unspecified, uncomplicated; K63.5 Polyp of colon; K76.0 Fatty (change of) liver, not elsewhere classified; Z90.49 Acquired absence of other specified parts of digestive tract; E85.89 Other amyloidosis; F03.90 Unspecified dementia, unspecified severity, without behavioral disturbance, psychotic disturbance, mood disturbance, and anxiety; J44.9 Chronic obstructive pulmonary disease, unspecified; Z86.73 Personal history of transient ischemic attack (TIA), and cerebral infarction without residual deficits; K44.9 Diaphragmatic hernia without obstruction or gangrene; I71.2 Thoracic aortic aneurysm, without rupture; E87.8 Other disorders of electrolyte and fluid balance, not elsewhere classified; R22.43 Localized swelling, mass and lump, lower limb, bilateral
CPT/HCPCS: 36415; 74177-TC; 74220-TC-FY; 74240-TC-FY; 80048; 80053; 81003; 81015; 82436; 83605; 83690; 83735; 83930; 83935; 84100; 84133; 84300; 84443; 85025; 87086; 93005; 93010; 96374; 96375; 96376; 97116-GP; 97161-GP; 99284-25; G0378; J7030; J8610

== ENCOUNTER 2018-03-09 17:37 | Inpatient (IN) | payer OTHER, BC ==
--- NOTE | 2018-03-09 18:04 | PDOC ---
History of Present Illness - General History Source: Patient, Spouse Exam Limitations: Dementia - History of Present Illness Initial Comments: 03/09/18 18:11 The patient is a 72 year old female, febrile, with a significant past medical history for Dementia, COPD (not on home O2, everyday tobacco smoker), HTN, HLD, hypothyroidism, RA, chronic pain BIB for 5 days of productive cough and increased confusion yesterday. The at bedside reports the patient's cough is productive of clear sputum. The also states the patient has been complaining of lower extremity pain and was "unable to get her out of bed" yesterday. He also reports yesterday the patient was more confused than usual yesterday. 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 PCP is Dr. Fajardo Allergies: Sulfa, dipyridamole, indomethacin <Stefani Chowdhury - Last Filed: 03/09/18 18:11> <Lorraine Adan - Last Filed: 03/09/18 21:07> - General Chief Complaint: Weakness Stated Complaint: FAILURE TO THRIVE Time Seen by Provider: 03/09/18 18:03 Past History <Stefani Chowdhury - Last Filed: 03/09/18 18:11> - Past Medical History Cardiac Disorders: Yes (ATRIAL FIBRILLATION) COPD: Yes Dementia: Yes (Memory loss) GI Disorders: Yes (CHRONIC ABDOMINAL PAIN) HTN: Yes Hypercholesterolemia: Yes Seizures: No - Surgical History Orthopedic Surgery: Yes (Left Toal Hip Replacement) - Immunization History Td Vaccination: Yes (6 YEARS AGO) Immunization Up to Date: Yes - Suicide/Smoking/Psychosocial Hx Smoking Status: Yes Smoking History: Unknown if ever smoked Have you smoked in the past 12 months: No Number of Cigarettes Smoked Daily: 20 Information on smoking cessation initiated: No 'Breaking Loose' booklet given: 04/13/17 Hx Alcohol Use: No Drug/Substance Use Hx: No Substance Use Type: None <Lorraine Adan - Last Filed: 03/09/18 21:07> - Past Medical History Allergies/Adverse Reactions: Allergies Allergy/AdvReac Type Severity Reaction Status Date / Time Sulfa (Sulfonamide Allergy Hives Verified 03/09/18 18:06 Antibiotics) dipyridamole AdvReac Mild headache Verified 03/09/18 18:06 [From Persantine] indomethacin [From Indocin] AdvReac Mild headache Verified 03/09/18 18:06 Home Medications: Ambulatory Orders Amlodipine Besylate [Norvasc -] 5 mg PO HS 10/26/16 Enalapril Maleate [Vasotec] 20 mg PO HS 10/26/16 Gabapentin [Neurontin] 600 mg PO DAILY 10/26/16 Levothyroxine [Synthroid -] 25 mcg PO DAILY 10/26/16 Methotrexate [Mexate -] 20 mg PO Q7D 10/26/16 Metoprolol Tartrate [Lopressor -] 50 mg PO DAILY 10/26/16 hydrALAZINE HCL [Apresoline -] 25 mg PO DAILY PRN 10/26/16 predniSONE [Deltasone -] 5 mg PO DAILY 10/26/16 Furosemide 20 mg PO DAILY PRN 12/06/17 Morphine *Immediate Release* [Msir -] 15 mg PO BID 12/06/17 Pantoprazole Sodium [Protonix -] 40 mg PO BID tablet.ec 12/08/17 Ascorbic Acid [Vitamin C] 500 mg PO DAILY 03/09/18 Atorvastatin Ca [Lipitor] 40 mg PO HS 03/09/18 Metoprolol Tartrate 75 mg PO HS 03/09/18 Mirtazapine 15 mg PO HS 03/09/18 Multivitamins [Tab-A-Vit -] 1 tab PO DAILY 03/09/18 Potassium 99 mg PO DAILY 03/09/18 Review of Systems - Review of Systems Able to Perform ROS?: No (dementia) <Stefani Chowdhury - Last Filed: 03/09/18 18:11> *Physical Exam - Vital Signs Last Vital Signs Temp Pulse Resp BP Pulse Ox 101.9 F H 118 H 24 135/65 90 L 03/09/18 17:44 03/09/18 17:44 03/09/18 17:44 03/09/18 17:44 03/09/18 17:44 - Physical Exam Comments: 03/09/18 18:16 Constitutional: (+) Awake, alert, and confused. Febrile 101.4F. No acute distress. Head: Normocephalic. Atraumatic Eyes: PERRL. EOMI. Conjunctivae are not pale. ENT: (+) dry cracked Mucous membranes. Posterior pharynx without exudates or erythema. Uvula midline. Neck: Supple. Full ROM. No lymphadenopathy. Cardiovascular: (+) tachycardic. Regular rhythm. S1, S2 regular. Distal pulses are 2+ and symmetric. Pulmonary/Chest: (+) Coarse rhonchorous BS. No wheezing. Abdominal: (+) mildly diffusely tender. Soft and non-distended. No rebound, guarding or rigidity. No organomegaly. No palpable masses. Good bowel sounds. Back: No CVA tenderness. Musculoskeletal: No edema. No cyanosis. No clubbing. Full range of motion in all extremities. Nocalf tenderness. Radial/pedal pulses are intact and 2+ bilaterally Skin: (+) skin tenting. Skin is hot to touch with dried stool on LE. No petechiae. No purpura. Neurological: (+) Alert and Confused. Cranial nerves II-XII are grossly intact. Normal speech. Strength is grossly symmetric. No sensory deficits. Psychiatric: Good eye contact. Normal interaction, affect and behavior. <Stefani Chowdhury - Last Filed: 03/09/18 18:11> - Vital Signs Last Vital Signs Temp Pulse Resp BP Pulse Ox 101.9 F H 118 H 24 135/65 90 L 03/09/18 17:44 03/09/18 17:44 03/09/18 17:44 03/09/18 17:44 03/09/18 17:44 <Lorraine Adan - Last Filed: 03/09/18 21:07> Heart Score/ECG Review - ECG Intrepretation Comment:: 03/09/18 18:36 sinus tach 141, nl axis, q waves septally that are age indeterminate, no acute st/t wave findings <Lorraine Adan - Last Filed: 03/09/18 21:07> ED Treatment Course - LABORATORY CBC & Chemistry Diagram: 03/09/18 18:45 03/09/18 18:12 <Lorraine Adan - Last Filed: 03/09/18 21:07> Medical Decision Making - Critical Care Time Total Critical Care Time (minutes): 60 Critical Care Statement: The care of this patient involved high complexity decision making to prevent further life threatening deterioration of the patient 's condition and/or to evaluate & treat vital organ system(s) failure or risk of failure. - Medical Decision Making 03/09/18 18:36 a/p: 72yo female with 3 days of cough/fevers/today with altered MS -concern for sepsis and PNA vs UTI -pt is demented, hx of copd and still smokes -will send labs, cultures, ekg, cxr, straight cath for urine -will start broad spectrum abx along with ivf hydration -pt with diffuse wheezing and coarse bs b/l -hypoxic upon arrival -pt tachy, tachypnic, altered, hot to touch -will need admission for SIRS -discussed plan with the patient and her 03/09/18 19:21 pt agitated, ripping off nebs, trying to remove IV will medicate with ativan to calm the patient. 03/09/18 20:24 pt with fever hyponatremia no acute findings on cxr pending ua will need admission for hyponatremia, altered ms and further eval of SIRS 03/09/18 20:25 call placed to [facility] for admission 03/09/18 21:05 case discussed with Lilly from [facility] who accepts pt to service <Lorraine Adan - Last Filed: 03/09/18 21:07> *DC/Admit/Observation/Transfer - Attestations Scribe Attestion: 03/09/18 18:20 Documentation prepared by Stefani Chowdhury, acting as biomedical engineer for Lorraine Adan DO <Stefani Chowdhury - Last Filed: 03/09/18 18:11> - Discharge Dispostion Decision to Admit order: Yes - Attestations Physician Attestion: 03/09/18 21:06 I, Dr. Lorraine Adan DO, attest that this document has been prepared under my direction and personally reviewed by me in its entirety. I further attest, that it accurately reflects all work, treatment, procedures and medical decision -making performed by me. <Lorraine Adan - Last Filed: 03/09/18 21:07> Diagnosis at time of Disposition: Hyponatremia, Electrolyte abnormality, Cough, COPD exacerbation, SIRS ( systemic inflammatory response syndrome) - Discharge Dispostion Condition at time of disposition: Guarded - Referrals Referrals: Devin Fajardo MD [Primary Care Provider] - - Patient Instructions - Post Discharge Activity
[2018-03-09] MEDS ORDERED: ACETAMINOPHEN 1000 MG/100 ML VIAL (NON FORMULARY) IVPB ONE (18:10)
[2018-03-09] MEDS ORDERED: methylPREDNISolone NA SUCC 125 MG/2 ML VIAL IVPB ONE (18:10)
[2018-03-09] MEDS ORDERED: SODIUM CHLORIDE 0.9% 1000 ML INFUS.BAG IV ONE ×2 (18:10→18:11)
[2018-03-09] MEDS ORDERED: ALBUTEROL SO4 2.5/IPRATROPIUM 0.5 INH SOL 3 ML VIAL.NEB. NEB ONE ×4 (18:10→18:38)
[2018-03-09] MEDS ORDERED: PIPERACILLIN/TAZOB 4.5 GM 4.5 GM in DEXTROSE 5%-WATER 100 ML IVPB ONE (18:12)
[2018-03-09] MEDS ORDERED: VANCOMYCIN 1,000 MG in DEXTROSE 5%-WATER - 250 ML IVPB ONE (18:12)
[2018-03-09] MEDS ORDERED: ACETAMINOPHEN INJECTION 100 ML IVPB ONE (18:38)
[2018-03-09] MEDS ORDERED: methylPREDNISolone NA SUCC 125 MG/2 ML VIAL ONE (18:39)
[2018-03-09 18:54] LABS: BASO % 0.6 % (0-2.0); EOS % 0.2 % (0-4.5); HEMATOCRIT 39.2 % (32.4-45.2); HEMOGLOBIN 13.4 GM/dL (10.7-15.3); LYMPH % 8.2 % (8-40); MCH 29.7 pg (25.7-33.7); MCHC 34.1 g/dl (32.0-36.0); MEAN PLT VOLUME 7.4 fl (7.5-11.1); MONO % 4.9 % (3.8-10.2); NEUT % 86.1 % (42.8-82.8); PLATELET COUNT 257 K/MM3 (134-434); RDW 19.7 % (11.6-15.6); WHITE BLOOD COUNT 6.6 K/mm3 (4.0-10.0)
[2018-03-09 18:57] LABS: VENOUS PC02 39.6 mmHg (38-52); VENOUS PH 7.49 (7.32-7.42); VENOUS PO2 79.4 mmHg (28-48)
[2018-03-09] MEDS ORDERED: VANCOMYCIN 1 GRAM (PRE-DOCKED) 1,000 MG/250 ML BAG IVPB ONE ×2 (19:01)
[2018-03-09] MEDS ORDERED: PIPERACILLIN/TAZOB 4.5 GM 4.5 GM/100 ML BAG IVPB ONE (19:01)
[2018-03-09 19:08] LABS: INR 1.11 (0.83-1.09); PROTHROMBIN TIME (PATIENT) 12.5 SEC (9.7-13.0)
[2018-03-09] MEDS ORDERED: LORazepam 2 MG/ML SDV VIAL ONE (19:26)
[2018-03-09 19:42] LABS: ALBUMIN 2.5 g/dl (3.4-5.0); ANION GAP 12 MMOL/L (8-16); BLOOD UREA NITROGEN 8 mg/dL (7-18); CALCIUM 8.5 mg/dL (8.5-10.1); CHLORIDE 83 mmol/L (98-107); CO2 28 mmol/L (21-32); GLUCOSE,RANDOM 89 mg/dL (74-106); LIPASE 47 U/L (73-393); MAGNESIUM 1.3 mg/dL (1.8-2.4); POTASSIUM 3.4 mmol/L (3.5-5.1)
[2018-03-09 19:48] LABS: ALK PHOS 85 U/L (45-117); BILIRUBIN,TOTAL 0.7 mg/dL (0.2-1.0); CREATININE 0.3 mg/dL (0.55-1.02); SGOT/AST 62 U/L (15-37); SGPT/ALT 15 U/L (12-78); TOT PROT 7.1 g/dl (6.4-8.2)
[2018-03-09 19:53] LABS: SODIUM 123 mmol/L (136-145)
--- NOTE | 2018-03-09 22:07 | HP ---
Admitting History and Physical - Primary Care Physician PCP: Devin Fajardo - Admission Chief Complaint: AMS, Cough History of Present Illness: This is a 72 y/o woman with a PMH of: Dementia, COPD, Current Smoker, CHF, HTN, HLD, Hypothyroid, RA, Chronic Pain. Who presented to the ED with family who reports increased AMS and a cough x 5 days. Patient has Dementia and is unable to provide HPI. 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: Dementia, Peripheral Neuropathy, TIA Cardiovascular: Yes: Aneurysm (3.8cm AAA), HTN (controlled w/ hydralazine), Hyperlipdemia Pulmonary: Yes: Asthma, COPD Gastrointestinal: Yes: Diverticulosis, Hiatal Hernia, Other (hyperplastic sigmoid polyps removed 12/27) Hepatobiliary: Yes: Cholelithiasis, Other (fatty liver) Musculoskeletal: Yes: Other (neuropathy LE) Rheumatology: Yes: Rheumatoid Arthritis, Vasculitis (of the skin) - Past Surgical History Past Surgical History: Yes: Breast Biopsy (b/l, negative), Cholecystectomy (lap choly 05/04), Colonoscopy, Hernia Repair (umbilical hernia repair 05/04), Hysterectomy (noel/bso), Joint Replacement (Lt. THR w/ revision), Upper Endoscopy - Smoking History Smoking history: Unknown if ever smoked Have you smoked in the past 12 months: No Aproximately how many cigarettes per day: 20 - Alcohol/Substance Use Hx Alcohol Use: No - Social History ADL: Family Assistance History of Recent Travel: No Home Medications - Allergies Allergies/Adverse Reactions: Allergies Allergy/AdvReac Type Severity Reaction Status Date / Time Sulfa (Sulfonamide Allergy Hives Verified 03/09/18 18:06 Antibiotics) dipyridamole AdvReac Mild headache Verified 03/09/18 18:06 [From Persantine] indomethacin [From Indocin] AdvReac Mild headache Verified 03/09/18 18:06 - Home Medications Home Medications: Ambulatory Orders Amlodipine Besylate [Norvasc -] 5 mg PO HS 10/26/16 Enalapril Maleate [Vasotec] 20 mg PO HS 10/26/16 Gabapentin [Neurontin] 600 mg PO DAILY 10/26/16 Levothyroxine [Synthroid -] 25 mcg PO DAILY 04/10/17 Methotrexate [Mexate -] 20 mg PO Q7D 10/26/16 Metoprolol Tartrate [Lopressor -] 50 mg PO DAILY 10/26/16 hydrALAZINE HCL [Apresoline -] 25 mg PO DAILY PRN 10/26/16 predniSONE [Deltasone -] 5 mg PO DAILY 10/26/16 Furosemide 20 mg PO DAILY PRN 12/06/17 Morphine *Immediate Release* [Msir -] 15 mg PO BID 12/06/17 Pantoprazole Sodium [Protonix -] 40 mg PO BID tablet.ec 12/08/17 Ascorbic Acid [Vitamin C] 500 mg PO DAILY 03/09/18 Atorvastatin Ca [Lipitor] 40 mg PO HS 03/09/18 Metoprolol Tartrate 75 mg PO HS 03/09/18 Mirtazapine 15 mg PO HS 03/09/18 Multivitamins [Tab-A-Vit -] 1 tab PO DAILY 03/09/18 Potassium 99 mg PO DAILY 03/09/18 Family Disease History - Family Disease History Family Disease History: Diabetes: Mother (: pna/dm), Son, Other: Father ( : lung cancer), Mother, Brother (lung cancer), Daughter (SLE) Review of Systems Unable to obtain ROS, reason: Dementia Physical Examination Vital Signs: Vital Signs Temperature 101.9 F H 03/09/18 17:44 Pulse Rate 118 H 03/09/18 17:44 Respiratory Rate 24 03/09/18 17:44 Blood Pressure 135/65 03/09/18 17:44 O2 Sat by Pulse Oximetry (%) 90 L 03/09/18 17:44 Constitutional: Yes: No Distress, Calm Eyes: Yes: Conjunctiva Clear, EOM Intact HENT: Yes: WNL, Atraumatic, Normocephalic Neck: Yes: WNL, Supple, Trachea Midline Cardiovascular: Yes: Pulse Irregular, S1, S2 Respiratory: Yes: Rhonchi Gastrointestinal: Yes: WNL, Normal Bowel Sounds, Soft, Abdomen, Obese Renal/: Yes: Incontinence Breast(s): Yes: WNL Musculoskeletal: Yes: WNL Extremities: Yes: WNL Edema: No Peripheral Pulses WNL: Yes Neurological: Yes: Lethargy Labs: CBC, BMP 03/09/18 18:45 03/09/18 18:12 Imaging - Results Chest X-ray: Report Reviewed, Image Reviewed Cat Scan: Report Reviewed, Image Reviewed Problem List - Problems (1) Hyponatremia Code(s): E87.1 - HYPO-OSMOLALITY AND HYPONATREMIA (2) SIRS (systemic inflammatory response syndrome) Code(s): R65.10 - SIRS OF NON-INFECTIOUS ORIGIN W/O ACUTE ORGAN DYSFUNCTION (3) COPD exacerbation Code(s): J44.1 - CHRONIC OBSTRUCTIVE PULMONARY DISEASE W (ACUTE) EXACERBATION (4) Hypokalemia Code(s): E87.6 - HYPOKALEMIA (5) CAD (coronary artery disease) Assessment/Plan: - stable - Continue home meds Code(s): I25.10 - ATHSCL HEART DISEASE OF [place] CORONARY ARTERY W/O ANG PCTRS Assessment/Plan 72 y/o woman admitted for Acute Hyponatremia, AMS, SIRS for further evaluation of their emergent condition. Plan: 1. Hyponatremia Likely secondary to Dehydration Admit to Telemetry Continue cardiac monitoring NS given in ED Na correction goal 6-8meq/24hr 2. Metabolic Encephalopathy, AMS likely secondary to electrolyte imbalance vs UTI CT Head- neg ICH Replete lytes and continue to monitor fall precautions 3. SIRS likely secondary to COPD exacerbation Criteria MET Blood cultures pending urine culture pending Vancomycin and Zosyn given in ED Appreciate ID consult 4. Hypertension Monitor BP Continue home meds, when patient is arousable Monitor renal function 5. Acute on Chronic COPD Exacerbation Chest xray-reviewed pt was hypoxia on arrival slight improvement with O2, Duonebs Continue home meds Monitor vitals Appreciate Pulm consult FEN- gentle IVF, replete lytes prn, NPO DVT ppx, SCDs, Heparin SQ dispo: Requires Inpatient Care Visit type - Emergency Visit Emergency Visit: Yes ED Registration Date: 03/09/18 Care time: The patient presented to the Emergency Department on the above date and was hospitalized for further evaluation of their emergent condition. - New Patient This patient is new to me today: Yes Date on this admission: 03/09/18 - Critical Care Critical Care patient: No Hospitalist Screening - Colonoscopy Questionnaire Colonoscopy Questionnaire: Colonoscopy Questionnaire - Patient: 50 - 75 years old and never had a screening colonoscopy: Unknown History of colon or rectal polyps, or CA: Unknown History of IBD, Crohn's disease or UC: Unknown History of abdominal radiation therapy as a child: Unknown - Relative: 1 with colon or rectal CA, or polyps at age 60 or younger: Unknown Colon or rectal CA diagnosed at age 45 or younger: Unknown Multiple relatives with colon or rectal CA: Unknown - Outcome: Screening Result: Negative Screen
[2018-03-09] MEDS ORDERED: ACETAMINOPHEN 1000 MG/100 ML VIAL (NON FORMULARY) IVPB PRN (22:21)
[2018-03-09 22:22] LABS: URINE APPEARANCE CLEAR; URINE BILIRUBIN NEGATIVE (<2.0 mg/dL); URINE COLOR COLORLESS; URINE GLUCOSE (UA) NEGATIVE (NEGATIVE); URINE KETONE NEGATIVE (NEGATIVE); URINE LEUK ESTERASE NEGATIVE (NEGATIVE); URINE NITRITE NEGATIVE (NEGATIVE); URINE PROTEIN NEGATIVE (NEGATIVE); URINE UROBILINOGEN NEGATIVE mg/dL (0.2-1.0)
[2018-03-09] MEDS ORDERED: ALBUTEROL SO4 2.5/IPRATROPIUM 0.5 INH SOL 3 ML VIAL.NEB. NEB PRN (22:26)
[2018-03-10] MEDS: methylPREDNISolone NA SUCC 40 MG/1 ML VIAL IVPUSH SCH ×3 (01:58→17:58)
[2018-03-10 02:32] LABS: ANION GAP 8 MMOL/L (8-16); BLOOD UREA NITROGEN 5 mg/dL (7-18); CHLORIDE 93 mmol/L (98-107); CO2 29 mmol/L (21-32); CREATININE 0.4 mg/dL (0.55-1.02); GLUCOSE,RANDOM 170 mg/dL (74-106); SODIUM 130 mmol/L (136-145)
[2018-03-10 02:39] LABS: POTASSIUM 2.9 mmol/L (3.5-5.1)
[2018-03-10] MEDS: KCL 10 MEQ IVPB 10 MEQ/100 ML INFUS.BAG IVPB SCH ×3 (03:53→05:47)
[2018-03-10 07:16] LABS: BASO % 0.2 % (0-2.0); HEMATOCRIT 39.6 % (32.4-45.2); HEMOGLOBIN 13.3 GM/dL (10.7-15.3); MCH 29.7 pg (25.7-33.7); MCHC 33.7 g/dl (32.0-36.0); MEAN CELL VOLUME 88.1 fl (80-96); MEAN PLT VOLUME 7.2 fl (7.5-11.1); MONO % 2.8 % (3.8-10.2); PLATELET COUNT 220 K/MM3 (134-434); RBC 4.49 M/mm3 (3.60-5.2); RDW 19.8 % (11.6-15.6)
[2018-03-10 07:38] LABS: ANION GAP 8 MMOL/L (8-16); BLOOD UREA NITROGEN 5 mg/dL (7-18); CALCIUM 8.5 mg/dL (8.5-10.1); CHLORIDE 91 mmol/L (98-107); CO2 31 mmol/L (21-32); CREATININE 0.6 mg/dL (0.55-1.02); GLUCOSE,RANDOM 150 mg/dL (74-106); MAGNESIUM 1.5 mg/dL (1.8-2.4); PHOSPHOROUS 2.5 mg/dL (2.5-4.9); POTASSIUM 3.6 mmol/L (3.5-5.1); SODIUM 130 mmol/L (136-145)
--- NOTE | 2018-03-10 08:12 | PN ---
Progress Note, Physician - Current Medication List Current Medications: Active Medications Acetaminophen (Ofirmev Injection -) 1,000 mg IVPB Q6H PRN PRN Reason: FEVER Albuterol/Ipratropium (Duoneb -) 1 amp NEB Q6H PRN PRN Reason: SHORTNESS OF BREATH Methylprednisolone Sodium Succinate (Solu-Medrol -) 40 mg IVPUSH Q8H-IV MAUREEN Last Admin: 03/10/18 01:58 Dose: 40 mg - Objective Vital Signs: Vital Signs Temperature 98.7 F 03/10/18 06:00 Pulse Rate 106 H 03/10/18 06:00 Respiratory Rate 18 03/10/18 06:00 Blood Pressure 124/74 03/10/18 06:00 O2 Sat by Pulse Oximetry (%) 95 03/10/18 01:20 Labs: CBC, BMP 03/10/18 06:45 03/10/18 06:45 INR, PTT INR 1.11 (0.83-1.09) H 03/09/18 18:12 Problem List - Problems (1) Hyponatremia Assessment/Plan: Likely secondary to Dehydration Admit to Telemetry Continue cardiac monitoring NS given in ED Na correction goal 6-8meq/24hr renal Consult Code(s): E87.1 - HYPO-OSMOLALITY AND HYPONATREMIA (2) SIRS (systemic inflammatory response syndrome) Assessment/Plan: Blood cultures pending urine culture pending Vancomycin and Zosyn given in ED Appreciate ID consult Code(s): R65.10 - SIRS OF NON-INFECTIOUS ORIGIN W/O ACUTE ORGAN DYSFUNCTION (3) Decreased appetite Assessment/Plan: -Gi consult -monitor Code(s): R63.0 - ANOREXIA (4) Metabolic encephalopathy Assessment/Plan: 2. Metabolic Encephalopathy, AMS likely secondary to electrolyte imbalance vs UTI CT Head- neg ICH Replete lytes and continue to monitor fall precautions Code(s): G93.41 - METABOLIC ENCEPHALOPATHY (5) COPD exacerbation Assessment/Plan: Chest xray-reviewed pt was hypoxia on arrival slight improvement with O2, Duonebs Continue home meds Monitor vitals Appreciate Pulm consult Code(s): J44.1 - CHRONIC OBSTRUCTIVE PULMONARY DISEASE W (ACUTE) EXACERBATION
[2018-03-10 09:26] LABS: ANISOCYTOSIS 1+; PLATELET ESTIMATE NORMAL
[2018-03-10 09:40] LABS: OVALOCYTE 1+
--- NOTE | 2018-03-10 10:56 | PN ---
Progress Note (short form) - Note Progress Note: PULMONARY CONSULTATION DICTATED 03/10/18 IMP COPD EXACERBATION LIKELY URI SIRS AMS HYPONATREMIA HTN HLD DEMENTIA RA HYPOTHYROID PLAN IV STEROIDS ABX INHALED BRONCHODILATORS SUPPLEMENTAL O2 RATE CONTROL CULTURES IVF MONITOR LYTES,NA URINE LYTES CHEST CT DR LOVELACE Problem List - Problems (1) Tachycardia Code(s): R00.0 - TACHYCARDIA, UNSPECIFIED (2) COPD exacerbation Code(s): J44.1 - CHRONIC OBSTRUCTIVE PULMONARY DISEASE W (ACUTE) EXACERBATION (3) Cough Code(s): R05 - COUGH (4) Electrolyte abnormality Code(s): E87.8 - OTH DISORDERS OF ELECTROLYTE AND FLUID BALANCE, NEC (5) Hyponatremia Code(s): E87.1 - HYPO-OSMOLALITY AND HYPONATREMIA (6) Metabolic encephalopathy Code(s): G93.41 - METABOLIC ENCEPHALOPATHY (7) SIRS (systemic inflammatory response syndrome) Code(s): R65.10 - SIRS OF NON-INFECTIOUS ORIGIN W/O ACUTE ORGAN DYSFUNCTION (8) Generalized weakness Code(s): R53.1 - WEAKNESS (9) Hyperlipidemia Code(s): E78.5 - HYPERLIPIDEMIA, UNSPECIFIED (10) Rheumatoid arthritis Code(s): M06.9 - RHEUMATOID ARTHRITIS, UNSPECIFIED
[2018-03-10] MEDS ORDERED: METOPROLOL TARTRATE 25 MG TABLET (FP) PO SCH (11:15)
--- NOTE | 2018-03-10 12:12 | CONS ---
DATE OF CONSULTATION: 03/10/2018 REFERRING PHYSICIAN: Devin Fajardo MD HISTORY OF PRESENT ILLNESS: The patient is a 72-year-old white female with a past medical history of dementia, COPD, longstanding history of tobacco use (currently still smoking a pack a day), congestive heart failure, hypertension, hyperlipidemia, hypothyroidism, rheumatoid, chronic pain, history of peripheral neuropathy, TIA, history of aortic aneurysm 3.8 cm, admitted to [facility] with complaint of altered mental status and cough for 5 days duration. Patient noted on admission to be markedly hyponatremic with serum sodium of 123. She started on IV fluids with some improvement. She was also felt to be very warm. She was also noted to have a temperature of 101.9. She was placed on broad spectrum antibiotics and transferred to the medical telemetry unit for further monitoring. Of note, on the telemetry unit, she has been very tachycardic with a heart rate of 138. Patient denies any chest pain. She states she does not feel well, but she is unsure what is bothering her. She denies any hemoptysis, denies any chest pain, nausea, vomiting, or diaphoresis. PAST MEDICAL HISTORY: Again includes dementia, COPD, hypertension, hyperlipidemia, hypothyroidism, congestive heart failure, rheumatoid, chronic pain. REVIEW OF SYSTEMS: Unobtainable from patient. MEDICATIONS PRIOR TO ADMISSION: Include Norvasc, Vasotec, Neurontin, Synthroid, methotrexate, Lopressor, Apresoline, prednisone, Lasix, Protonix, vitamin C, Lipitor, metoprolol, multivitamin, and potassium. CURRENT MEDICATIONS: Include Duo-Neb, Tylenol, , acetaminophen, Solu-Medrol. PHYSICAL EXAMINATION: General: The patient is an elderly white female, thin, well-developed, awake, alert, mildly confused, but in no acute distress. Vital signs: She is afebrile. Blood pressure is 128/62, respiratory rate is 20, O2 saturation is 96% on 3 L, heart rate is 138. HEENT: Head is normocephalic atraumatic. Neck: Supple. Heart: Tachycardic, S1, S2. Chest: A few scattered bilateral rales and rhonchi. Abdomen: Soft. Bowel sounds positive. Extremities: No cyanosis or edema. LABORATORIES: Initial serum sodium is 123, currently it is 130, BUN 5, creatinine 0.6, magnesium is 1.5. WBC is 8.6, hemoglobin 13.3, hematocrit 39.6, platelet count of 220,000. INR is 1.11. Venous blood gas with pH of 7.49, pCO2 of 39, pO2 of 79, and a bicarbonate of 29, that was on unknown quantity oxygen. Chest x-ray reveals no acute infiltrates and/or effusions. Head CT no interval change, no acute intracranial pathology IMPRESSION: 1. Altered mental status, likely infectious process, possible pulmonary, possible viral versus possible pneumonia, although not present or evident on chest x-ray. 2. Chronic obstructive pulmonary disease with exacerbation. 3. Severe hyponatremia. Tachycardia. 4. History of congestive heart failure. 5. History of hypertension. 6. History of rheumatoid arthritis. PLAN: IV inhaled bronchodilators, rate control, steroids, antibiotics, CT scan of the chest, monitor serum sodium, IV fluids, urine electrolytes, supplemental O2, obtain cultures. Jensen [id number]
--- NOTE | 2018-03-10 13:00 | CON.CARD ---
Consult Consult Specialty:: cardio - History of Present Illness Chief Complaint: altered MS History of Present Illness: 72 F here with cough x several days, altered MS on DOA has dementia (moderately severe) at baseline. known copd. being treated for a.e. copd here by dr levine noted to be low Na in ER. on tele floor, was having frequent tachycardia (SVTs) to 120s-140s earlier, without any sx's per staff forester currently: denies sob/wheezing denies palpitations, cp, leg swelling PMH: aorta aneurysm labile HTN dementia periph neuropathy HPL copd with hypoxia-->pulm HTN - Past Medical History LOOM CHANGER: Yes: Dementia, Peripheral Neuropathy, TIA Cardio/Vascular: Yes: Aneurysm (3.8cm AAA), HTN (controlled w/ hydralazine), Hyperlipdemia Pulmonary: Yes: Asthma, COPD Gastrointestinal: Yes: Diverticulosis, Hiatal Hernia, Other (hyperplastic sigmoid polyps removed 12/27) Hepatobiliary: Yes: Cholelithiasis, Other (fatty liver) ...: No Musculoskeletal: Yes: Other (neuropathy LE) Rheumatology: Yes: Rheumatoid Arthritis, Vasculitis (of the skin) - Past Surgical History Past Surgical History: Yes: Breast Biopsy (b/l, negative), Cholecystectomy (lap choly 05/04), Colonoscopy, Hernia Repair (umbilical hernia repair 05/04), Hysterectomy (noel/bso), Joint Replacement (Lt. THR w/ revision), Upper Endoscopy - Alcohol/Substance Use Hx Alcohol Use: No - Smoking History Smoking history: Unknown if ever smoked Have you smoked in the past 12 months: No Aproximately how many cigarettes per day: 20 - Social History Usual Living Arrangement: With Spouse ADL: Family Assistance History of Recent Travel: No Home Medications - Allergies Allergies/Adverse Reactions: Allergies Allergy/AdvReac Type Severity Reaction Status Date / Time Sulfa (Sulfonamide Allergy Hives Verified 03/09/18 18:06 Antibiotics) dipyridamole AdvReac Mild headache Verified 03/09/18 18:06 [From Persantine] indomethacin [From Indocin] AdvReac Mild headache Verified 03/09/18 18:06 - Home Medications Home Medications: Ambulatory Orders Amlodipine Besylate [Norvasc -] 5 mg PO HS 10/26/16 Enalapril Maleate [Vasotec] 20 mg PO HS 10/26/16 Gabapentin [Neurontin] 600 mg PO DAILY 10/26/16 Levothyroxine [Synthroid -] 25 mcg PO DAILY 10/26/16 Methotrexate [Mexate -] 20 mg PO Q7D 10/26/16 Metoprolol Tartrate [Lopressor -] 50 mg PO DAILY 10/26/16 hydrALAZINE HCL [Apresoline -] 25 mg PO DAILY PRN 10/26/16 predniSONE [Deltasone -] 5 mg PO DAILY 10/26/16 Furosemide 20 mg PO DAILY PRN 12/06/17 Morphine *Immediate Release* [Msir -] 15 mg PO BID 12/06/17 Pantoprazole Sodium [Protonix -] 40 mg PO BID tablet.ec 12/08/17 Ascorbic Acid [Vitamin C] 500 mg PO DAILY 03/09/18 Atorvastatin Ca [Lipitor] 40 mg PO HS 03/09/18 Metoprolol Tartrate 75 mg PO HS 03/09/18 Mirtazapine 15 mg PO HS 03/09/18 Multivitamins [Tab-A-Vit -] 1 tab PO DAILY 03/09/18 Potassium 99 mg PO DAILY 03/09/18 Family Disease History - Family Disease History Family Disease History: Diabetes: Mother (: pna/dm), Son, Other: Father ( : lung cancer), Mother, Brother (lung cancer), Daughter (SLE) Review of Systems - Review of Systems Constitutional: denies: Chills, Fever Eyes: denies: Eye Pain HENT: denies: Nasal Congestion Neck: denies: Stiffness Cardiovascular: denies: Palpitations Respiratory: denies: Orthopnea, PND Gastrointestinal: denies: Diarrhea, Rectal Bleeding Genitourinary: denies: Burning, Hematuria Musculoskeletal: denies: Muscle Pain Integumentary: denies: Rash Neurological: denies: Numbness, Seizure, Syncope Endocrine: denies: Excessive Sweating Hematology/Lymphatic: denies: Excessive Bleeding Vital Signs: Vital Signs Temperature 98.2 F 03/10/18 09:00 Pulse Rate 138 H 03/10/18 09:00 Respiratory Rate 20 03/10/18 09:00 Blood Pressure 128/62 03/10/18 09:00 O2 Sat by Pulse Oximetry (%) 96 03/10/18 09:00 Constitutional: Yes: Well Nourished, No Distress Eyes: No: Sclera Icterus HENT: No: Nasal Congestion Neck: No: Decreased ROM Respiratory: Yes: CTA Bilaterally. No: Accessory Muscle Use, Rales, Tachypnea, Wheezes Gastrointestinal: Yes: Normal Bowel Sounds. No: Distention, Hepatomegaly, Palpable Mass, Tenderness Cardiovascular: Yes: Regular Rate and Rhythm JVD: No Carotid Bruit: No PMI: Non-Displaced Heart Sounds: Yes: S1, S2. No: Gallop Murmur: No: Systolic Murmur, Diastolic Murmur Musculoskeletal: Yes: Other (No kyphosis) Extremities: No: Cold Edema: No Peripheral Pulses: 2+ Left Carotid, 2+ Right Carotid, 2+ Left Doralis Pedis, 2+ Right Dorsalis Pedis Integumentary: No: Jaundice Neurological: Yes: Alert. No: Seizure Psychiatric: No: Agitated - Other Data Labs, Other Data: CBC, BMP 03/10/18 06:45 03/10/18 06:45 INR, PTT INR 1.11 (0.83-1.09) H 03/09/18 18:12 Troponin, BNP 03/09/18 18:12 Troponin I 0.03 Troponin, BNP 03/09/18 18:12 Troponin I 0.03 Laboratory Tests 03/09/18 03/09/18 03/09/18 18:12 18:16 18:45 WBC Hgb Plt Count Sodium Potassium Carbon Dioxide BUN Creatinine Lactic Acid 1.3 AST 62 H ALT 15 Troponin I 0.03 TSH 0.76 03/10/18 03/10/18 06:45 06:45 WBC 8.0 Hgb 13.3 Plt Count 220 Sodium 130 L Potassium 3.6 Carbon Dioxide 31 BUN 5 L Creatinine 0.6 Lactic Acid AST ALT Troponin I TSH Assessment/Plan echo 09/04: nl LV/EF, no RWMA. nl RV. nl LA. mild AI. no RVSP. 4 cm ao root, 4.1 cm ascending. mibi 04/2013: mod septal ischemia per report tele: NSR with frequent runs of MAT with HRs 120s-140s altered MS: -acute on chronic (baseline dementia) -? due to Na 123 -Na improving--cont care per dr amie kerr COPD: -treatment per dr levine multifocal atrial tach (MAT): -sec to severe COPD -very rapid when occurs, without sx's--i.e. hi risk for recurrences at home with tachy-CMP -cont metoprolol high dose as she has tolerated this long time at home for bp control -add digoxin (tends to work best for this rhythm)--start 0.125mg qd dose, monitor level -defer diltiazem for now htn: -bp control complicated by h/o labile bp's, med non-adherence/confusion at times , and h/o marked orthosatic hypotension with syncope in past -has had no syncope/positional LH sx's in long time, off fludrocortisone since 2016 due to spikes in BPs at that time -bp control much better of late, since med adherence improved -stable readings here, cont home meds hld: -cont home statin possible cad: -prior mibi 2012 reported low-risk area of (septal) ischemia and has been managed medically with no angina sx's -pt with extensive atherosclerotic aorta vascular disease -normal lvef -cont home statin, bb, randall. -ASA held in recent past when developed NSAID-related PUD (dx'd on EGD) WHO 2 pulm HTN: -marked PA dilation noted on prior CTA chest -signif desats to 80s% on 6MWT--declined O2 due to refusal to stop smoking thoracic and abdominal aorta aneurysms: -known ascending aorta aneurysm 4.8 cm, and descending aorta aneurysm 4.0 cm, both unchanged on 01/02 study -small infrarenal AAA 3.2cm, increased vs 2.7 cm in 2016--pt has refused (any) f /u MD office visits or imaging since then--will repeat surveillance imaging while she is here -would be high risk (maybe not prohibitive) for open repair in any case ( ascending aorta not amenable to endovascular approach) + cigs: -repeatedly counselled cessation benefits and available modalities as outpt--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
--- NOTE | 2018-03-10 15:07 | CONSULT ---
Consult - text type - Consultation Consultation Note: Renal Consult for Hyponatremia This is a 72 year old woman with hx of hyponatremia, Dementia, COPD, Current smoker, CHF, Hypertension, Hypothyroidism, who presented with AMS and cough and found to have Na of 123. Pt seen at the bedside, has no acute complaints today. Cannot recall the events that brought her to the hospital. Reports drinking about 8 glasses of water daily. Denies any diuretic use (listed as being on Lasix at home). Denies any N/V, Abd pain, SOB or cough at the present time. No fevers or chills. PMHx: as above Allergies: NDKA Family Hx: NC Social Hx: no T/A/D ROS: as per HPI Home Medications Medication Instructions Recorded Amlodipine Besylate [Norvasc -] 5 mg PO HS 10/26/16 Enalapril Maleate [Vasotec] 20 mg PO HS 10/26/16 Gabapentin [Neurontin] 600 mg PO DAILY 10/26/16 Levothyroxine [Synthroid -] 25 mcg PO DAILY 10/26/16 Methotrexate [Mexate -] 20 mg PO Q7D 10/26/16 Metoprolol Tartrate [Lopressor -] 50 mg PO DAILY 10/26/16 hydrALAZINE HCL [Apresoline -] 25 mg PO DAILY PRN 10/26/16 predniSONE [Deltasone -] 5 mg PO DAILY 10/26/16 Furosemide 20 mg PO DAILY PRN 12/06/17 Morphine *Immediate Release* [Msir 15 mg PO BID 12/06/17 -] Pantoprazole Sodium [Protonix -] 40 mg PO BID tablet.ec 12/08/17 Ascorbic Acid [Vitamin C] 500 mg PO DAILY 03/09/18 Atorvastatin Ca [Lipitor] 40 mg PO HS 03/09/18 Metoprolol Tartrate 75 mg PO HS 03/09/18 Mirtazapine 15 mg PO HS 03/09/18 Multivitamins [Tab-A-Vit -] 1 tab PO DAILY 03/09/18 Potassium 99 mg PO DAILY 03/09/18 Vital Signs Temperature 98.2 F 03/10/18 09:00 Pulse Rate 138 H 03/10/18 09:00 Respiratory Rate 20 03/10/18 09:00 Blood Pressure 128/62 03/10/18 09:00 O2 Sat by Pulse Oximetry (%) 96 03/10/18 09:00 Intake & Output 03/07/18 03/08/18 03/09/18 03/10/18 23:59 23:59 23:59 23:59 Intake Total 450 Balance 450 Weight 72.575 kg 72.575 kg NAD awake and alert MMM, No JVD Neck supple RRR, No M/R CTA, no rales or wheeze soft NT/ND no LE edema, clubbing or cyanosis CBC, BMP 03/10/18 06:45 03/10/18 06:45 Current Medications Acetaminophen (Ofirmev Injection -) 1,000 mg IVPB Q6H PRN PRN Reason: FEVER Albuterol/Ipratropium (Duoneb -) 1 amp NEB Q6H PRN PRN Reason: SHORTNESS OF BREATH Amlodipine Besylate (Norvasc -) 5 mg PO HS [facility] Atorvastatin Calcium (Lipitor -) 40 mg PO HS [facility] Digoxin (Lanoxin -) 0.125 mg PO DAILY [facility] Levothyroxine Sodium (Synthroid -) 25 mcg PO 0700 [facility] Methylprednisolone Sodium Succinate (Solu-Medrol -) 40 mg IVPUSH Q8H-IV [facility] Last Admin: 03/10/18 09:17 Dose: 40 mg Metoprolol Tartrate (Lopressor -) 75 mg PO HS [facility] Metoprolol Tartrate (Lopressor -) 50 mg PO DAILY [facility] Last Admin: 03/10/18 11:12 Dose: 50 mg Mirtazapine (Remeron -) 15 mg PO HS [facility] Pantoprazole Sodium (Protonix -) 40 mg PO BID [facility] 72 year old woman with hx of hyponatremia, Dementia, COPD, Current smoker, CHF, Hypertension, Hypothyroidism, who presented with AMS and cough and found to have Na of 123. #Hypo-osmolar Hyponatremia #Hyokalemia #AMS #COPD Exacerbation Clinical picture consistent with diuretic induced hypovolemic hyponatremia ( Lasix use at home, improvement in serum Na with IVF) Urine na is elevated but that may be due to diuretic effect. Currently MS is improved and assumed to base at baseline and thus no indication for 3% saline would continue to hold diuretics at this time free water restriction of 1L daily Unsure exactly how much fluid she received in the ER will give NS for an additional 12 hours repeat serum Na this evening Continue steroids as per Pulmonary if serum Na does not continue to improve may warrant further imaging such as Chest CT r/o causative lesion for SIADH Thank you Will follow Kye Church DO
--- NOTE | 2018-03-10 15:31 | PN ---
Progress Note (short form) - Note Progress Note: ID consult dictated imp/reccd restiing comfortably admitted with fever hyponatremia history of cough at home she is unable to recall events at home or in ED na was 123 now 130 she is alert cause of fever unclear cxray is clear, ua negative ?bronchitis f/u cultures rocephin for now will f/u needs podiatry evaluation Problem List - Problems (1) Fever Code(s): R50.9 - FEVER, UNSPECIFIED (2) Bronchitis Code(s): J40 - BRONCHITIS, NOT SPECIFIED ACUTE OR CHRONIC (3) Hyponatremia Code(s): E87.1 - HYPO-OSMOLALITY AND HYPONATREMIA
--- NOTE | 2018-03-10 15:52 | EKG ---
Test Reason : Blood Pressure : / mmHG Vent. Rate : 141 BPM Atrial Rate : 141 BPM P-R Int : 122 ms QRS Dur : 074 ms QT Int : 296 ms P-R-T Axes : 000 044 057 degrees QTc Int : 453 ms POOR DATA QUALITY, INTERPRETATION MAY BE ADVERSELY AFFECTED SINUS TACHYCARDIA WITH PREMATURE SUPRAVENTRICULAR COMPLEXES SEPTAL INFARCT , AGE UNDETERMINED ABNORMAL ECG WHEN COMPARED WITH ECG OF 05-DEC-2017 22:59, PREMATURE SUPRAVENTRICULAR COMPLEXES ARE NOW PRESENT VENT. RATE HAS INCREASED BY 48 BPM NONSPECIFIC T WAVE ABNORMALITY NOW EVIDENT IN LATERAL LEADS Confirmed by Connie Coles ([id number]) on 03/10/2018 3:52:03 PM Referred By: Confirmed By:Connie Coles
[2018-03-10] MEDS: DIGOXIN 0.125 MG TABLET (FP) PO SCH (15:59)
[2018-03-10] MEDS ORDERED: SODIUM CHLORIDE 1,000 ML IV SCH (16:15)
[2018-03-10] MEDS ORDERED: cefTRIAXone SODIUM 1 GM VIAL ONE (17:08)
[2018-03-10] MEDS ORDERED: DEXTROSE 5%-WATER - 50 ML IVPB ONE (17:08)
[2018-03-10] MEDS: CEFTRIAXONE 1 GM in DEXTROSE 5%-WATER - 50 ML IVPB SCH (17:58)
--- NOTE | 2018-03-10 19:24 | CONS ---
DATE OF CONSULTATION: DATE OF DICTATION: 03/10/2018 REQUESTED BY: Devin Fajardo MD HISTORY OF PRESENT ILLNESS: The patient is a 72-year-old female who came to the emergency room on March 09. She was brought by her with confusion and a cough for 5 days. Her reports that she has been progressively weaker and more confused than usual. The patient is currently awake and alert in bed. She has no recollection of the events at home, being in the ER or what led to her to being in the hospital. In the emergency room, she was noted to have a fever of 101.9. She was also hyponatremic with a sodium of 123. Otherwise, she has no complaints whatsoever. She has a moist cough. She denies any chest pain, abdominal pain, nausea, vomiting, diarrhea or dysuria. ALLERGIES: SULFA, DIPYRIDAMOLE AND INDOMETHACIN. PAST MEDICAL HISTORY: Notable for atrial fibrillation, COPD, dementia, hypertension, hypercholesterolemia and a left total hip replacement. She reports that she does not use oxygen at home. HOME MEDICATIONS: Amlodipine, enalapril, gabapentin, levothyroxine, methotrexate, metoprolol, hydralazine, prednisone, furosemide, morphine, pantoprazole, vitamin C, atorvastatin, mirtazapine, multivitamins and potassium. REVIEW OF SYSTEMS: Negative. PHYSICAL EXAMINATION: General: She is awake and alert. She is able to recall her name, where she is now. She can give me details of her allergy history but she has no recollection of coming to the hospital. Vital Signs: Temperature 97.8, pulse is 89, blood pressure 141/70, respiratory rate 20, saturating 96% on 3 liters. HEENT: Normocephalic. Her eyes are anicteric. She has no teeth. She has no thrush. Neck: Supple. Lungs: She has scattered rhonchi. Heart: Regular rate and rhythm. Abdomen: Soft, nontender. Extremities: The bottoms of both feet are very dirty and her toes are mildly red. The toenails are unkempt. LABORATORY DATA: Her white count is 8000, hemoglobin is 13.3, platelets are 220, INR is 1. Her sodium has gone from 123 to 130. Her potassium was 3.4 on admission. Today, it is 3.6. Her liver function tests are notable for an AST of 62. and 0.9. Urinalysis shows 2+ blood. A chest x-ray shows no acute lung disease. A head CT shows acute intracranial pathology. In summary, this is a 72-year-old woman admitted with fever, confusion and hyponatremia who is now quite alert. The cause of her fever is unclear. The confusion may certainly have been related to her hyponatremia. Her chest x-ray is clear. A urinalysis was negative. She does have a cough but she is a chronic smoker. She may have bronchitis. We will follow up cultures and treat her with ceftriaxone for now. We will consider a podiatry evaluation as well while she is in the hospital. Further recommendations to follow. HUMBERTO DUPREE M.D. [id number]
--- NOTE | 2018-03-10 21:16 | CON.GI ---
Consult Consult Specialty:: Gastroenterology Referred by:: Dr Fajardo Reason for Consultation:: Abd pain, poor intake - History of Present Illness Chief Complaint: Can't recall History of Present Illness: 72F is admitted for altered mental status. She is conversant at present. She admits to decreased oral intake due to a diminished appetite. She denies dysphagia, early satiety, nausea or abdominal pain. She had an EGD on 04/16/19 which revealed a normal esophagus and erosive gastritis. She last had a colonoscopy with me in 2010 when hyperplastic sigmoid polyps were removed. A nephew had colon cancer. - History Source History Provided By: Patient, Medical Record Limitations to Obtaining History: Dementia - Past Medical History HOG COOLER: Yes: Dementia, Peripheral Neuropathy, TIA Cardio/Vascular: Yes: Aneurysm (3.8cm AAA), HTN (controlled w/ hydralazine), Hyperlipdemia Pulmonary: Yes: Asthma, COPD Gastrointestinal: Yes: Diverticulosis, Gastritis, Hiatal Hernia, Other ( hyperplastic sigmoid polyps removed 12/27) Hepatobiliary: Yes: Cholelithiasis (s/p lap choly), Other (fatty liver) ...: No Musculoskeletal: Yes: Other (neuropathy LE) Rheumatology: Yes: Rheumatoid Arthritis, Vasculitis (of the skin) - Past Surgical History Past Surgical History: Yes: Breast Biopsy (b/l, negative), Cholecystectomy (lap choly 05/04), Colonoscopy, Hernia Repair (umbilical hernia repair 05/04), Hysterectomy (noel/bso), Joint Replacement (Lt. 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 Place of : [facility] History of Recent Travel: No Home Medications - Allergies Allergies/Adverse Reactions: Allergies Allergy/AdvReac Type Severity Reaction Status Date / Time Sulfa (Sulfonamide Allergy Hives Verified 03/09/18 18:06 Antibiotics) dipyridamole AdvReac Mild headache Verified 03/09/18 18:06 [From Persantine] indomethacin [From Indocin] AdvReac Mild headache Verified 03/09/18 18:06 - Home Medications Home Medications: Ambulatory Orders Amlodipine Besylate [Norvasc -] 5 mg PO HS 10/26/16 Enalapril Maleate [Vasotec] 20 mg PO HS 10/26/16 Gabapentin [Neurontin] 600 mg PO DAILY 10/26/16 Levothyroxine [Synthroid -] 25 mcg PO DAILY 10/26/16 Methotrexate [Mexate -] 20 mg PO Q7D 10/26/16 Metoprolol Tartrate [Lopressor -] 50 mg PO DAILY 10/26/16 hydrALAZINE HCL [Apresoline -] 25 mg PO DAILY PRN 10/26/16 predniSONE [Deltasone -] 5 mg PO DAILY 10/26/16 Furosemide 20 mg PO DAILY PRN 12/06/17 Morphine *Immediate Release* [Msir -] 15 mg PO BID 12/06/17 Pantoprazole Sodium [Protonix -] 40 mg PO BID tablet.ec 12/08/17 Ascorbic Acid [Vitamin C] 500 mg PO DAILY 03/09/18 Atorvastatin Ca [Lipitor] 40 mg PO HS 03/09/18 Metoprolol Tartrate 75 mg PO HS 03/09/18 Mirtazapine 15 mg PO HS 03/09/18 Multivitamins [Tab-A-Vit -] 1 tab PO DAILY 03/09/18 Potassium 99 mg PO DAILY 03/09/18 Family Disease History - Family Disease History Family History: Unable to Obtain (had colon cancer) Family Disease History: Diabetes: Mother (: pna/dm), Son, Other: Father ( : lung cancer), Mother, Brother (lung cancer), Daughter (SLE) Review of Systems Unable to obtain ROS, reason: not reliable Physical Exam-GI Vital Signs: Vital Signs Temperature 97.8 F 03/10/18 14:00 Pulse Rate 98 H 03/10/18 15:59 Respiratory Rate 20 03/10/18 09:00 Blood Pressure 141/70 03/10/18 14:00 O2 Sat by Pulse Oximetry (%) 96 03/10/18 09:00 CBC,CMP WBC 8.0 K/mm3 (4.0-10.0) 03/10/18 06:45 RBC 4.49 M/mm3 (3.60-5.2) 03/10/18 06:45 Hgb 13.3 GM/dL (10.7-15.3) 03/10/18 06:45 Hct 39.6 % (32.4-45.2) 03/10/18 06:45 MCV 88.1 fl (80-96) 03/10/18 06:45 MCH 29.7 pg (25.7-33.7) 03/10/18 06:45 MCHC 33.7 g/dl (32.0-36.0) 03/10/18 06:45 RDW 19.8 % (11.6-15.6) H 03/10/18 06:45 Plt Count 220 K/MM3 (134-434) 03/10/18 06:45 MPV 7.2 fl (7.5-11.1) L 03/10/18 06:45 Absolute Neuts (auto) 7.5 K/mm3 (1.5-8.0) 03/10/18 06:45 Neutrophils % 94.0 % (42.8-82.8) H 03/10/18 06:45 Neutrophils % (Manual) 92.1 % (42.8-82.8) H 03/10/18 06:45 Band Neutrophils % 0.0 % 03/10/18 06:45 Lymphocytes % 3.0 % (8-40) L D 03/10/18 06:45 Lymphocytes % (Manual) 3.9 % (8-40) L 03/10/18 06:45 Monocytes % 2.8 % (3.8-10.2) L 03/10/18 06:45 Monocytes % (Manual) 4 % (3.8-10.2) 03/10/18 06:45 Eosinophils % 0.0 % (0-4.5) D 03/10/18 06:45 Eosinophils % (Manual) 0.0 % (0-4.5) 03/10/18 06:45 Basophils % 0.2 % (0-2.0) 03/10/18 06:45 Basophils % (Manual) 0.0 % (0-2.0) 03/10/18 06:45 Myelocytes % (Man) 0 % (0-2) 03/10/18 06:45 Promyelocytes % (Man) 0 % (0-2) 03/10/18 06:45 Blast Cells % (Manual) 0 % (0-0) 03/10/18 06:45 Nucleated RBC % 0 % (0-0) 03/10/18 06:45 Metamyelocytes 0 % (0-2) 03/10/18 06:45 Platelet Estimate Normal 03/10/18 06:45 Anisocytosis 1+ 03/10/18 06:45 Ovalocytes 1+ 03/10/18 06:45 Sodium 130 mmol/L (136-145) L 03/10/18 06:45 Potassium 3.6 mmol/L (3.5-5.1) 03/10/18 06:45 Chloride 91 mmol/L (98-107) L 03/10/18 06:45 Carbon Dioxide 31 mmol/L (21-32) 03/10/18 06:45 Anion Gap 8 MMOL/L (8-16) 03/10/18 06:45 BUN 5 mg/dL (7-18) L 03/10/18 06:45 Creatinine 0.6 mg/dL (0.55-1.02) 03/10/18 06:45 Creat Clearance w eGFR > 60 (>60) 03/10/18 06:45 Random Glucose 150 mg/dL (74-106) H 03/10/18 06:45 Serum Osmolality 269 mosm/kg (278-305) L 03/10/18 12:38 Lactic Acid 1.3 mmol/L (0.0-2.0) 03/09/18 18:45 Calcium 8.5 mg/dL (8.5-10.1) 03/10/18 06:45 Phosphorus 2.5 mg/dL (2.5-4.9) 03/10/18 06:45 Magnesium 1.5 mg/dL (1.8-2.4) L 03/10/18 06:45 Total Bilirubin 0.7 mg/dL (0.2-1.0) 03/09/18 18:12 AST 62 U/L (15-37) H 03/09/18 18:12 ALT 15 U/L (12-78) 03/09/18 18:12 Alkaline Phosphatase 85 U/L (45-117) 03/09/18 18:12 Creatine Kinase 85 IU/L (26-192) 03/09/18 18:12 Troponin I 0.03 ng/ml (0.00-0.05) 03/09/18 18:12 Total Protein 7.1 g/dl (6.4-8.2) 03/09/18 18:12 Albumin 2.5 g/dl (3.4-5.0) L 03/09/18 18:12 Lipase 47 U/L (73-393) L 03/09/18 18:12 TSH 0.76 uIU/ml (0.358-3.74) 03/09/18 18:16 Current Medications Generic Name Dose Route Start Last Admin Trade Name Freq PRN Reason Stop Dose Admin Acetaminophen 650 mg 03/10/18 19:38 Tylenol - PO Q6H PRN FEVER Albuterol/Ipratropium 1 amp 03/09/18 22:26 Duoneb - NEB Q6H PRN SHORTNESS OF BREATH Amlodipine Besylate 5 mg 03/10/18 22:00 Norvasc - PO HS [facility]EN Atorvastatin Calcium 40 mg 03/10/18 22:00 Lipitor - PO HS [facility] Digoxin 0.125 mg 03/10/18 14:45 03/10/18 15:59 Lanoxin - PO 0.125 mg DAILY [facility]EN Administration Ceftriaxone Sodium 1 gm/ 50 mls @ 100 mls/hr 03/10/18 16:15 03/10/18 17:58 Dextrose IVPB 100 mls/hr DAILY [facility]EN Administration Protocol Sodium Chloride 1,000 mls @ 75 mls/hr 03/10/18 16:15 03/10/18 17:59 Normal Saline - IV 03/11/18 16:14 75 mls/hr ASDIR MAUREEN Administration Levothyroxine Sodium 25 mcg 03/11/18 07:00 Synthroid - PO 0700 [facility] Methylprednisolone Sodium Succinate 40 mg 03/10/18 02:00 03/10/18 17:58 Solu-Medrol - IVPUSH 40 mg Q8H-IV [facility] Administration Metoprolol Tartrate 75 mg 03/10/18 22:00 Lopressor - PO HS [facility] Metoprolol Tartrate 50 mg 03/10/18 11:15 03/10/18 11:12 Lopressor - PO 50 mg DAILY [facility] Administration Mirtazapine 15 mg 03/10/18 22:00 Remeron - PO HS [facility] Pantoprazole Sodium 40 mg 03/10/18 22:00 Protonix - PO BID [facility] Constitutional: Yes: Calm Eyes: Yes: Conjunctiva Clear HENT: Yes: Atraumatic Neck: Yes: Supple Cardiovascular: Yes: Regular Rate and Rhythm Respiratory: Yes: CTA Bilaterally Gastrointestinal Inspection: Yes: Scars (healed laparoscopic and pfannensteil incisions) ...Auscultate: Yes: Normoactive Bowel Sounds ...Palpate: Yes: Soft, Other (nontender) ...Rectal Exam: Yes: Guaiac Negative (brown soft and guaiac negative stool, no masses) Edema: No Neurological: Yes: Alert, Confusion Labs: CBC, BMP 03/10/18 06:45 03/10/18 06:45 INR, PTT INR 1.11 (0.83-1.09) H 03/09/18 18:12 Problem List - Problems (1) Decreased appetite Assessment/Plan: I suspect that Eri's decreased oral intake reflects progressive dementia. I will institute a calorie count. I await the CT to exclude mesenteric ischemia causing intestinal angina and exclude an occult neoplasm. Dr Campbell will be covering for the next week. She has no occult bleeding to mandate panendoscopy at this time but CT findings may give rise to such indications. Code(s): R63.0 - ANOREXIA (2) Hyponatremia Code(s): E87.1 - HYPO-OSMOLALITY AND HYPONATREMIA (3) Gastric erosion determined by endoscopy Code(s): K25.9 - GASTRIC ULCER, UNSP ACUTE OR CHRONIC, W/O HEMOR OR PERF (4) Hyperplastic colonic polyp Code(s): K63.5 - POLYP OF COLON
[2018-03-10] MEDS ORDERED: PATIENT'S OWN MEDICATION (NON-FORMULARY) (Enalapril Maleate [Vasotec] 20 MG) PO SCH (22:00)
[2018-03-10] MEDS: amLODIPine BESYLATE 5 MG TABLET (FP) PO SCH (22:40)
[2018-03-10] MEDS: METOPROLOL TARTRATE 50 MG TABLET (FP) PO SCH (22:40)
[2018-03-10] MEDS: ATORVASTATIN CA 40 MG TABLET (FP) PO SCH (22:40)
[2018-03-10] MEDS: MIRTAZAPINE 15 MG TABLET (FP) PO SCH (22:41)
[2018-03-10] MEDS: PANTOPRAZOLE 40 MG TABLET (FP) PO SCH (22:41)
[2018-03-11] MEDS: methylPREDNISolone NA SUCC 40 MG/1 ML VIAL IVPUSH SCH ×3 (03:00→21:55)
[2018-03-11] MEDS ORDERED: LEVOTHYROXINE NA 25 MCG TABLET (FP) PO SCH (07:00)
--- NOTE | 2018-03-11 09:30 | PN ---
Progress Note, Physician - Current Medication List Current Medications: Active Medications Acetaminophen (Tylenol -) 650 mg PO Q6H PRN PRN Reason: FEVER Amlodipine Besylate (Norvasc -) 5 mg PO [facility] Last Admin: 03/10/18 22:40 Dose: 5 mg Atorvastatin Calcium (Lipitor -) 40 mg PO HS [facility] Last Admin: 03/10/18 22:40 Dose: 40 mg Digoxin (Lanoxin -) 0.125 mg PO DAILY [facility] Last Admin: 03/10/18 15:59 Dose: 0.125 mg Ceftriaxone Sodium 1 gm/ (Dextrose) 50 mls @ 100 mls/hr IVPB DAILY [facility]; Protocol Last Admin: 03/10/18 17:58 Dose: 100 mls/hr Sodium Chloride (Normal Saline -) 1,000 mls @ 75 mls/hr IV [facility] Stop: 03/11/18 16:14 Last Admin: 03/10/18 17:59 Dose: 75 mls/hr Metoprolol Tartrate (Lopressor -) 75 mg PO [facility] Last Admin: 03/10/18 22:40 Dose: 75 mg Mirtazapine (Remeron -) 15 mg PO [facility] Last Admin: 03/10/18 22:41 Dose: 15 mg Pantoprazole Sodium (Protonix -) 40 mg PO BID [facility] Last Admin: 03/10/18 22:41 Dose: 40 mg - Objective Vital Signs: Vital Signs Temperature 97.6 F 03/11/18 01:40 Pulse Rate 80 03/11/18 06:00 Respiratory Rate 20 03/11/18 06:00 Blood Pressure 142/63 03/11/18 06:00 O2 Sat by Pulse Oximetry (%) 94 L 03/10/18 21:00 Cardiovascular: Yes: Tachycardia, S1, S2 Respiratory: Yes: Regular, CTA Bilaterally Gastrointestinal: Yes: Normal Bowel Sounds, Soft Labs: CBC, BMP 03/10/18 06:45 03/10/18 06:45 INR, PTT INR 1.11 (0.83-1.09) H 03/09/18 18:12 Problem List - Problems (1) Hyponatremia Assessment/Plan: Improved Likely secondary to Dehydration Admit to Telemetry Continue cardiac monitoring NS given in ED Na correction goal 6-8meq/24hr renal Consult Code(s): E87.1 - HYPO-OSMOLALITY AND HYPONATREMIA (2) SIRS (systemic inflammatory response syndrome) Assessment/Plan: Blood cultures pending urine culture pending Vancomycin and Zosyn given in ED Appreciate ID consult--Rocephin Code(s): R65.10 - SIRS OF NON-INFECTIOUS ORIGIN W/O ACUTE ORGAN DYSFUNCTION (3) Decreased appetite Assessment/Plan: -Gi consult noted--for ct scan -monitor Code(s): R63.0 - ANOREXIA (4) Metabolic encephalopathy Assessment/Plan: dementia and infection-hyponatremia likely secondary to electrolyte imbalance vs UTI CT Head- neg ICH Replete lytes and continue to monitor fall precautions Code(s): G93.41 - METABOLIC ENCEPHALOPATHY (5) COPD exacerbation Assessment/Plan: Chest xray-reviewed pt was hypoxia on arrival slight improvement with O2, Duonebs Continue home meds Monitor vitals Appreciate Pulm consult Code(s): J44.1 - CHRONIC OBSTRUCTIVE PULMONARY DISEASE W (ACUTE) EXACERBATION (6) Tachycardia Assessment/Plan: -cardio noted -follow rate Code(s): R00.0 - TACHYCARDIA, UNSPECIFIED
[2018-03-11] MEDS ORDERED: METOPROLOL TARTRATE 25 MG TABLET (FP) PO SCH (10:00)
[2018-03-11] MEDS ORDERED: predniSONE 2.5 MG TABLET PO SCH (10:00)
--- NOTE | 2018-03-11 10:02 | PN ---
Progress Note (short form) - Note Progress Note: cc: alt ms s: no sob, palps, edema, chest pain Current Medications Acetaminophen (Tylenol -) 650 mg PO Q6H PRN PRN Reason: FEVER Albuterol/Ipratropium (Duoneb -) 1 amp NEB RQID [facility] Amlodipine Besylate (Norvasc -) 5 mg PO [facility] Last Admin: 03/10/18 22:40 Dose: 5 mg Atorvastatin Calcium (Lipitor -) 40 mg PO HS [facility] Last Admin: 03/10/18 22:40 Dose: 40 mg Digoxin (Lanoxin -) 0.125 mg PO DAILY [facility] Last Admin: 03/10/18 15:59 Dose: 0.125 mg Ceftriaxone Sodium 1 gm/ (Dextrose) 50 mls @ 100 mls/hr IVPB DAILY [facility]; Protocol Last Admin: 03/10/18 17:58 Dose: 100 mls/hr Sodium Chloride (Normal Saline -) 1,000 mls @ 75 mls/hr IV [facility] Stop: 03/11/18 16:14 Last Admin: 03/10/18 17:59 Dose: 75 mls/hr Methylprednisolone Sodium Succinate (Solu-Medrol -) 40 mg IVPUSH BID [facility] Metoprolol Tartrate (Lopressor -) 75 mg PO HS [facility] Last Admin: 03/10/18 22:40 Dose: 75 mg Metoprolol Tartrate (Lopressor -) 75 mg PO DAILY [facility] Mirtazapine (Remeron -) 15 mg PO HS [facility] Last Admin: 03/10/18 22:41 Dose: 15 mg Pantoprazole Sodium (Protonix -) 40 mg PO BID [facility] Last Admin: 03/10/18 22:41 Dose: 40 mg Vital Signs Vital Signs Period Temp Pulse Resp BP Sys/Barillas Pulse Ox Last 24 Hr 97.6 F-98.1 F 79-105 20-22 141-156/63-79 94 Constitutional: Yes: Well Nourished, No Distress Eyes: No: Sclera Icterus HENT: No: Nasal Congestion Neck: No: Decreased ROM Respiratory: Yes: CTA Bilaterally. No: Accessory Muscle Use, Rales, Tachypnea, Wheezes Gastrointestinal: Yes: Normal Bowel Sounds. No: Distention, Hepatomegaly, Palpable Mass, Tenderness Cardiovascular: Yes: Regular Rate and Rhythm JVD: No Carotid Bruit: No PMI: Non-Displaced Heart Sounds: Yes: S1, S2. No: Gallop Murmur: No: Systolic Murmur, Diastolic Murmur Musculoskeletal: Yes: Other (No kyphosis) Extremities: No: Cold Edema: No Peripheral Pulses: 2+ Left Carotid, 2+ Right Carotid, 2+ Left Doralis Pedis, 2+ Right Dorsalis Pedis Integumentary: No: Jaundice Neurological: Yes: Alert. No: Seizure Psychiatric: No: Agitated Assessment/Plan echo 09/04: nl LV/EF, no RWMA. nl RV. nl LA. mild AI. no RVSP. 4 cm ao root, 4.1 cm ascending. mibi 04/2013: mod septal ischemia per report tele: NSR with PVCs, rate ok altered MS: -acute on chronic (baseline dementia) - may be in setting of hyponatremia, manage per primary team - improving COPD: -treatment per dr levine multifocal atrial tach (MAT): -sec to severe COPD, had several episodes - rates improved with adding digoxin - continue digoxin and metoprolol htn: -bp control complicated by h/o labile bp's, med non-adherence/confusion at times , and h/o marked orthosatic hypotension with syncope in past -has had no syncope/positional LH sx's in long time, off fludrocortisone since 2016 due to spikes in BPs at that time -bp control much better of late, since med adherence improved -stable readings here, cont home meds hld: -cont home statin possible cad: -prior mibi 2012 reported low-risk area of (septal) ischemia and has been managed medically with no angina sx's -pt with extensive atherosclerotic aorta vascular disease -normal lvef -cont home statin, bb, randall. -ASA held in recent past when developed NSAID-related PUD (dx'd on EGD) WHO 2 pulm HTN: -marked PA dilation noted on prior CTA chest -signif desats to 80s% on 6MWT--declined O2 due to refusal to stop smoking thoracic and abdominal aorta aneurysms: -known ascending aorta aneurysm 4.8 cm, and descending aorta aneurysm 4.0 cm, both unchanged on 01/02 study -small infrarenal AAA 3.2cm, increased vs 2.7 cm in 2016--pt has refused (any) f /u MD office visits or imaging since then--will repeat surveillance imaging while she is here -would be high risk (maybe not prohibitive) for open repair in any case ( ascending aorta not amenable to endovascular approach) + cigs: -repeatedly counselled cessation benefits and available modalities as outpt--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
[2018-03-11] MEDS ORDERED: DEXTROSE 5%-WATER - 50 ML IVPB ONE (10:12)
[2018-03-11] MEDS ORDERED: cefTRIAXone SODIUM 1 GM VIAL ONE (10:12)
[2018-03-11] MEDS: DIGOXIN 0.125 MG TABLET (FP) PO SCH (10:15)
[2018-03-11] MEDS: CEFTRIAXONE 1 GM in DEXTROSE 5%-WATER - 50 ML IVPB SCH (10:15)
[2018-03-11] MEDS: METOPROLOL TARTRATE 50 MG TABLET (FP) PO SCH ×2 (10:15→21:46)
[2018-03-11] MEDS: PANTOPRAZOLE 40 MG TABLET (FP) PO SCH ×2 (10:16→21:45)
--- NOTE | 2018-03-11 10:19 | CON.NEURO ---
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: Dementia, Peripheral Neuropathy, TIA Cardio/Vascular: Yes: Aneurysm (3.8cm AAA), HTN (controlled w/ hydralazine), Hyperlipdemia Pulmonary: Yes: Asthma, COPD Gastrointestinal: Yes: Diverticulosis, Gastritis, Hiatal Hernia, Other ( hyperplastic sigmoid polyps removed 12/27) Hepatobiliary: Yes: Cholelithiasis (s/p lap choly), Other (fatty liver) ...: No Musculoskeletal: Yes: Other (neuropathy LE) Rheumatology: Yes: Rheumatoid Arthritis, Vasculitis (of the skin) - Past Surgical History Past Surgical History: Yes: Breast Biopsy (b/l, negative), Cholecystectomy (lap choly 05/04), Colonoscopy, Hernia Repair (umbilical hernia repair 05/04), Hysterectomy (noel/bso), Joint Replacement (Lt. 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 History of Recent Travel: No Home Medications - Allergies Allergies/Adverse Reactions: Allergies Allergy/AdvReac Type Severity Reaction Status Date / Time Sulfa (Sulfonamide Allergy Hives Verified 03/09/18 18:06 Antibiotics) dipyridamole AdvReac Mild headache Verified 03/09/18 18:06 [From Persantine] indomethacin [From Indocin] AdvReac Mild headache Verified 03/09/18 18:06 - Home Medications Home Medications: Ambulatory Orders Amlodipine Besylate [Norvasc -] 5 mg PO HS 10/26/16 Enalapril Maleate [Vasotec] 20 mg PO HS 10/26/16 Gabapentin [Neurontin] 600 mg PO DAILY 10/26/16 Levothyroxine [Synthroid -] 25 mcg PO DAILY 10/26/16 Methotrexate [Mexate -] 20 mg PO Q7D 10/26/16 Metoprolol Tartrate [Lopressor -] 50 mg PO DAILY 10/26/16 hydrALAZINE HCL [Apresoline -] 25 mg PO DAILY PRN 10/26/16 predniSONE [Deltasone -] 5 mg PO DAILY 10/26/16 Furosemide 20 mg PO DAILY PRN 12/06/17 Morphine *Immediate Release* [Msir -] 15 mg PO BID 12/06/17 Pantoprazole Sodium [Protonix -] 40 mg PO BID tablet.ec 12/08/17 Ascorbic Acid [Vitamin C] 500 mg PO DAILY 03/09/18 Atorvastatin Ca [Lipitor] 40 mg PO HS 03/09/18 Metoprolol Tartrate 75 mg PO HS 03/09/18 Mirtazapine 15 mg PO HS 03/09/18 Multivitamins [Tab-A-Vit -] 1 tab PO DAILY 03/09/18 Potassium 99 mg PO DAILY 03/09/18 Family Disease History - Family Disease History Family Disease History: Diabetes: Mother (: pna/dm), Son, Other: Father ( : lung cancer), Mother, Brother (lung cancer), Daughter (SLE) Physical Exam-Neuro Vital Signs: Vital Signs Temperature 97.6 F 03/11/18 01:40 Pulse Rate 80 03/11/18 06:00 Respiratory Rate 20 03/11/18 06:00 Blood Pressure 142/63 03/11/18 06:00 O2 Sat by Pulse Oximetry (%) 94 L 03/10/18 21:00 Labs: CBC, BMP 03/10/18 06:45 03/10/18 06:45 INR, PTT INR 1.11 (0.83-1.09) H 03/09/18 18:12 Assessment/Plan Thank for consult , I am covering for Dr Blackwood. cc worsening of confusion HPI 72 year old female , she came with worsening of mental status. She has history of Dementia, COPD, HTN,HLD , Hypothyroidism, RA. She came with worsening of mental status. There no facial droopiness, headache, hemiparesis or seizure like activity. Patient was given abx and improving clinically. Spoke to nursing , she still remains confused and has improved . He is sitting comfortably in bed , and no acute distress. PMH as above. PSH- Left total hip replacement Allergies/Adverse Reactions: Allergies Allergy/AdvReac Type Severity Reaction Status Date / Time Sulfa (Sulfonamide Allergy Hives Verified 03/09/18 18:06 Antibiotics) dipyridamole AdvReac Mild headache Verified 03/09/18 18:06 [From Persantine] indomethacin [From Indocin] AdvReac Mild headache Verified 08/22/18 18:06 Home Medications: Amlodipine Besylate [Norvasc -] 5 mg PO HS 10/26/16 Enalapril Maleate [Vasotec] 20 mg PO HS 10/26/16 Gabapentin [Neurontin] 600 mg PO DAILY 10/26/16 Levothyroxine [Synthroid -] 25 mcg PO DAILY 10/26/16 Methotrexate [Mexate -] 20 mg PO Q7D 10/26/16 Metoprolol Tartrate [Lopressor -] 50 mg PO DAILY 10/26/16 hydrALAZINE HCL [Apresoline -] 25 mg PO DAILY PRN 10/26/16 predniSONE [Deltasone -] 5 mg PO DAILY 10/26/16 Furosemide 20 mg PO DAILY PRN 12/06/17 Morphine *Immediate Release* [Msir -] 15 mg PO BID 12/06/17 Pantoprazole Sodium [Protonix -] 40 mg PO BID tablet.ec 12/08/17 Ascorbic Acid [Vitamin C] 500 mg PO DAILY 03/09/18 Atorvastatin Ca [Lipitor] 40 mg PO HS 03/09/18 Metoprolol Tartrate 75 mg PO HS 03/09/18 Mirtazapine 15 mg PO HS 03/09/18 Multivitamins [Tab-A-Vit -] 1 tab PO DAILY 03/09/18 Potassium 99 mg PO DAILY 03/09/18 RYANNE,CRYSTAL reviewed in chart Neurological Examination Alert orietned x 2, not able to tell me date she knows that she is in [facility], [place] no neck stiffness eomi, pupils is reactive , no face asymmetry moving all extremity 5/5 all ext sensation is normal febrile and vital is noraml CT head unremarkable Assessment- Worsening of mental status seems to be metabolic encpehalopathy ( infection) in setting of Dementia, Clinically patient is improving and there is no evidence of status peilepticus, stroke or menignitis Plan- continue current supportive care and intercurrent illness - Follow up outpatient , consider aricept and namenda outpatient -Thanking you so much Ezra Shearer
--- NOTE | 2018-03-11 11:02 | PN ---
Progress Note, Physician History of Present Illness: PULMONARY ALERT,FEELING BETTER,-RESP DISTRESS - Current Medication List Current Medications: Active Medications Acetaminophen (Tylenol -) 650 mg PO Q6H PRN PRN Reason: FEVER Albuterol/Ipratropium (Duoneb -) 1 amp NEB RQID [facility] Amlodipine Besylate (Norvasc -) 5 mg PO [facility] Last Admin: 03/10/18 22:40 Dose: 5 mg Atorvastatin Calcium (Lipitor -) 40 mg PO [facility] Last Admin: 03/10/18 22:40 Dose: 40 mg Digoxin (Lanoxin -) 0.125 mg PO DAILY [facility] Last Admin: 03/11/18 10:15 Dose: 0.125 mg Ceftriaxone Sodium 1 gm/ (Dextrose) 50 mls @ 100 mls/hr IVPB DAILY [facility]; Protocol Last Admin: 03/11/18 10:15 Dose: 100 mls/hr Methylprednisolone Sodium Succinate (Solu-Medrol -) 40 mg IVPUSH BID [facility] Last Admin: 03/11/18 10:16 Dose: 40 mg Metoprolol Tartrate (Lopressor -) 75 mg PO [facility] Last Admin: 03/10/18 22:40 Dose: 75 mg Metoprolol Tartrate (Lopressor -) 75 mg PO DAILY [facility] Last Admin: 03/11/18 10:15 Dose: 75 mg Mirtazapine (Remeron -) 15 mg PO [facility] Last Admin: 03/10/18 22:41 Dose: 15 mg Pantoprazole Sodium (Protonix -) 40 mg PO BID [facility] Last Admin: 03/11/18 10:16 Dose: 40 mg - Objective Vital Signs: Vital Signs Temperature 97.6 F 03/11/18 01:40 Pulse Rate 78 03/11/18 10:15 Respiratory Rate 20 03/11/18 06:00 Blood Pressure 142/63 03/11/18 06:00 O2 Sat by Pulse Oximetry (%) 94 L 03/10/18 21:00 Constitutional: Yes: Well Nourished, Calm Eyes: Yes: WNL HENT: Yes: WNL Neck: Yes: WNL Cardiovascular: Yes: Regular Rate and Rhythm, S1, S2 Respiratory: Yes: Wheezes (FEW SCATTERED WHEEZES) Gastrointestinal: Yes: Normal Bowel Sounds, Soft Extremities: Yes: WNL Edema: No Labs: CBC, BMP 03/10/18 06:45 03/10/18 06:45 INR, PTT INR 1.11 (0.83-1.09) H 03/09/18 18:12 Problem List - Problems (1) Tachycardia Code(s): R00.0 - TACHYCARDIA, UNSPECIFIED (2) COPD exacerbation Code(s): J44.1 - CHRONIC OBSTRUCTIVE PULMONARY DISEASE W (ACUTE) EXACERBATION (3) Cough Code(s): R05 - COUGH (4) Electrolyte abnormality Code(s): E87.8 - OTH DISORDERS OF ELECTROLYTE AND FLUID BALANCE, NEC (5) Hyponatremia Code(s): E87.1 - HYPO-OSMOLALITY AND HYPONATREMIA (6) Metabolic encephalopathy Code(s): G93.41 - METABOLIC ENCEPHALOPATHY (7) SIRS (systemic inflammatory response syndrome) Code(s): R65.10 - SIRS OF NON-INFECTIOUS ORIGIN W/O ACUTE ORGAN DYSFUNCTION (8) Generalized weakness Code(s): R53.1 - WEAKNESS (9) Hyperlipidemia Code(s): E78.5 - HYPERLIPIDEMIA, UNSPECIFIED (10) Rheumatoid arthritis Code(s): M06.9 - RHEUMATOID ARTHRITIS, UNSPECIFIED Assessment/Plan IMP COPD EXACERBATION LIKELY URI SIRS AMS HYPONATREMIA IMPROVING HTN HLD DEMENTIA RA HYPOTHYROID PLAN STEROID TAPER ABX INHALED BRONCHODILATORS SUPPLEMENTAL O2 RATE CONTROL IVF MONITOR CITLALY DO DR Problem List - Problems (1) Tachycardia Code(s): R00.0 - TACHYCARDIA, UNSPECIFIED (2) COPD exacerbation Code(s): J44.1 - CHRONIC OBSTRUCTIVE PULMONARY DISEASE W (ACUTE) EXACERBATION (3) Cough Code(s): R05 - COUGH (4) Electrolyte abnormality Code(s): E87.8 - OTH DISORDERS OF ELECTROLYTE AND FLUID BALANCE, NEC (5) Hyponatremia Code(s): E87.1 - HYPO-OSMOLALITY AND HYPONATREMIA (6) Metabolic encephalopathy Code(s): G93.41 - METABOLIC ENCEPHALOPATHY (7) SIRS (systemic inflammatory response syndrome) Code(s): R65.10 - SIRS OF NON-INFECTIOUS ORIGIN W/O ACUTE ORGAN DYSFUNCTION (8) Generalized weakness Code(s): R53.1 - WEAKNESS (9) Hyperlipidemia Code(s): E78.5 - HYPERLIPIDEMIA, UNSPECIFIED (10) Rheumatoid arthritis Code(s): M06.9 - RHEUMATOID ARTHRITIS, UNSPECIFIED
[2018-03-11] MEDS: ALBUTEROL SO4 2.5/IPRATROPIUM 0.5 INH SOL 3 ML VIAL.NEB. NEB SCH ×3 (11:57→20:58)
[2018-03-11 12:15] LABS: ANION GAP 9 MMOL/L (8-16); BLOOD UREA NITROGEN 6 mg/dL (7-18); CALCIUM 8.7 mg/dL (8.5-10.1); CHLORIDE 99 mmol/L (98-107); CO2 28 mmol/L (21-32); CREATININE 0.2 mg/dL (0.55-1.02); GLUCOSE,RANDOM 116 mg/dL (74-106); POTASSIUM 3.4 mmol/L (3.5-5.1); SODIUM 136 mmol/L (136-145)
[2018-03-11] MEDS ORDERED: POTASSIUM CHLORIDE TABS 20 MEQ TABLET.ER (FP) PO ONE (14:30)
[2018-03-11 15:32] VITALS: BMI 18.8
--- NOTE | 2018-03-11 15:51 | PN ---
Progress Note (short form) - Note Progress Note: renal follow up for hyponatremia pt seen and examined at the bedside no acute complaints at the bedside, reports pt back to baseline tolerating oral diet Vital Signs Temperature 98 F 03/11/18 10:00 Pulse Rate 78 03/11/18 10:15 Respiratory Rate 18 03/11/18 10:00 Blood Pressure 142/60 03/11/18 10:00 O2 Sat by Pulse Oximetry (%) 94 L 03/11/18 09:00 Intake & Output 03/08/18 03/09/18 03/10/18 03/11/18 23:59 23:59 23:59 23:59 Intake Total 460 900 Balance 460 900 Weight 72.575 kg 72.575 kg 53.07 kg NAD awake and alert MMM RRR CTA no LE edema CBC, BMP 03/10/18 06:45 03/11/18 05:30 72 year old woman with hx of hyponatremia, Dementia, COPD, Current smoker, CHF, Hypertension, Hypothyroidism, who presented with AMS and cough and found to have Na of 123. #Hypo-osmolar Hyponatremia secondary to diuretic induced hypovolemic hyponatremia (Lasix use at home, improvement in serum Na with IVF) #Hyokalemia #AMS #COPD Exacerbation Serum Na is now improved to normal limits will D/c NS Trend serum na with oral diet alone continue 1L free water restriction Kye Church DO
[2018-03-11] MEDS: KCL 10 MEQ IVPB 10 MEQ/100 ML INFUS.BAG IVPB SCH ×2 (15:59→18:32)
--- NOTE | 2018-03-11 17:53 | PN ---
Progress Note (short form) - Note Progress Note: alert no complaints decreased cough Vital Signs Period Temp Pulse Resp BP Sys/Barillas Pulse Ox Last 24 Hr 97.6 F-98.1 F 78-105 18-22 142-156/60-79 94-94 cor-rrr lungs clear ab dosft, nt ext no edema CBC, BMP 03/10/18 06:45 03/11/18 05:30 Microbiology 03/09/18 22:10 Urine - Urine Clean Catch Urine Culture - Final NO GROWTH OBTAINED 03/09/18 18:18 Blood - Peripheral Venous Blood Culture - Preliminary NO GROWTH OBTAINED AFTER 24 HOURS, INCUBATION TO CONTINUE FOR 4 DAYS. 03/09/18 18:18 Blood - Peripheral Venous Blood Culture - Preliminary NO GROWTH OBTAINED AFTER 24 HOURS, INCUBATION TO CONTINUE FOR 4 DAYS. Current Medications Acetaminophen (Tylenol -) 650 mg PO Q6H PRN PRN Reason: FEVER Albuterol/Ipratropium (Duoneb -) 1 amp NEB RQID [facility] Last Admin: 03/11/18 16:46 Dose: 1 amp Amlodipine Besylate (Norvasc -) 5 mg PO [facility] Last Admin: 03/10/18 22:40 Dose: 5 mg Atorvastatin Calcium (Lipitor -) 40 mg PO HS [facility] Last Admin: 03/10/18 22:40 Dose: 40 mg Digoxin (Lanoxin -) 0.125 mg PO DAILY [facility] Last Admin: 03/11/18 10:15 Dose: 0.125 mg Ceftriaxone Sodium 1 gm/ (Dextrose) 50 mls @ 100 mls/hr IVPB DAILY [facility]; Protocol Last Admin: 03/11/18 10:15 Dose: 100 mls/hr Methylprednisolone Sodium Succinate (Solu-Medrol -) 40 mg IVPUSH BID [facility] Last Admin: 03/11/18 10:16 Dose: 40 mg Metoprolol Tartrate (Lopressor -) 75 mg PO HS [facility] Last Admin: 03/10/18 22:40 Dose: 75 mg Metoprolol Tartrate (Lopressor -) 75 mg PO DAILY [facility] Last Admin: 03/11/18 10:15 Dose: 75 mg Mirtazapine (Remeron -) 15 mg PO HS [facility] Last Admin: 03/10/18 22:41 Dose: 15 mg Pantoprazole Sodium (Protonix -) 40 mg PO BID [facility] Last Admin: 03/11/18 10:16 Dose: 40 mg a/p hyponatremia resolved fever bronchitis- improved- day #2 ceftriaxone, can switch to ceftin po in am copd exacerbation please call back if needed Problem List - Problems (1) Fever Code(s): R50.9 - FEVER, UNSPECIFIED (2) Bronchitis Code(s): J40 - BRONCHITIS, NOT SPECIFIED ACUTE OR CHRONIC (3) Hyponatremia Code(s): E87.1 - HYPO-OSMOLALITY AND HYPONATREMIA
[2018-03-11] MEDS: MIRTAZAPINE 15 MG TABLET (FP) PO SCH (21:45)
[2018-03-11] MEDS: ACETAMINOPHEN 325 MG TABLET (FP) PO PRN (21:45)
[2018-03-11] MEDS: amLODIPine BESYLATE 5 MG TABLET (FP) PO SCH (21:45)
[2018-03-11] MEDS: ATORVASTATIN CA 40 MG TABLET (FP) PO SCH (21:46)
[2018-03-12 06:51] LABS: BASO % 0.1 % (0-2.0); HEMATOCRIT 36.3 % (32.4-45.2); HEMOGLOBIN 12.1 GM/dL (10.7-15.3); LYMPH % 6.4 % (8-40); MCH 29.4 pg (25.7-33.7); MCHC 33.4 g/dl (32.0-36.0); MEAN CELL VOLUME 87.9 fl (80-96); MEAN PLT VOLUME 7.4 fl (7.5-11.1); MONO % 3.9 % (3.8-10.2); NEUT % 89.6 % (42.8-82.8); PLATELET COUNT 225 K/MM3 (134-434); RBC 4.13 M/mm3 (3.60-5.2); RDW 19.5 % (11.6-15.6); WHITE BLOOD COUNT 8.4 K/mm3 (4.0-10.0)
[2018-03-12 07:24] LABS: CHLORIDE 97 mmol/L (98-107); POTASSIUM 3.8 mmol/L (3.5-5.1); SODIUM 136 mmol/L (136-145)
[2018-03-12 07:42] LABS: ALBUMIN 2.1 g/dl (3.4-5.0); ALK PHOS 67 U/L (45-117); ANION GAP 9 MMOL/L (8-16); BILIRUBIN,TOTAL 0.3 mg/dL (0.2-1.0); BLOOD UREA NITROGEN 8 mg/dL (7-18); CALCIUM 8.7 mg/dL (8.5-10.1); CO2 30 mmol/L (21-32); CREATININE 0.3 mg/dL (0.55-1.02); GLUCOSE,RANDOM 120 mg/dL (74-106); SGOT/AST 21 U/L (15-37); SGPT/ALT 9 U/L (12-78); TOT PROT 5.9 g/dl (6.4-8.2)
--- NOTE | 2018-03-12 08:07 | PN ---
Progress Note (short form) - Note Progress Note: HPI 72 year old female , she came with worsening of mental status. She has history of Dementia, COPD, HTN,HLD , Hypothyroidism, RA. She came with worsening of mental status. There no facial droopiness, headache, hemiparesis or seizure like activity. Patient was given abx and improving clinically. Spoke to nursing , she still remains confused and has improved . He is sitting comfortably in bed , and no acute distress. she has been improving clinically. There is no headhace, or any new focal neurological symptoms. P Neurological Examination Alert orietned x 2, not able to tell me date she knows that she is in [facility] [place], [place] no neck stiffness eomi, pupils is reactive , no face asymmetry moving all extremity 5/5 all ext sensation is normal febrile and vital is noraml CT head unremarkable Assessment- Worsening of mental status seems to be metabolic encpehalopathy ( infection) in setting of Dementia, Clinically patient is improving and there is no evidence of status peilepticus, stroke or menignitis. Plan- continue current supportive care and intercurrent illness -ID note appreciated, - Follow up outpatient , consider aricept and namenda outpatient - I will see her as needed basis -Thanking you so much Ezra Shearer
[2018-03-12] MEDS: ALBUTEROL SO4 2.5/IPRATROPIUM 0.5 INH SOL 3 ML VIAL.NEB. NEB SCH ×4 (08:40→19:20)
--- NOTE | 2018-03-12 09:03 | PN ---
Progress Note, Physician History of Present Illness: PULMONARY ALERT,FEELING BETTER,LESS DYSPNEIC - Current Medication List Current Medications: Active Medications Acetaminophen (Tylenol -) 650 mg PO Q6H PRN PRN Reason: FEVER Last Admin: 03/11/18 21:45 Dose: 650 mg Albuterol/Ipratropium (Duoneb -) 1 amp NEB RQID [facility] Last Admin: 03/12/18 08:40 Dose: 1 amp Amlodipine Besylate (Norvasc -) 5 mg PO [facility] Last Admin: 03/11/18 21:45 Dose: 5 mg Atorvastatin Calcium (Lipitor -) 40 mg PO HS [facility] Last Admin: 03/11/18 21:46 Dose: 40 mg Digoxin (Lanoxin -) 0.125 mg PO DAILY [facility] Last Admin: 03/11/18 10:15 Dose: 0.125 mg Ceftriaxone Sodium 1 gm/ (Dextrose) 50 mls @ 100 mls/hr IVPB DAILY [facility]; Protocol Last Admin: 03/11/18 10:15 Dose: 100 mls/hr Methylprednisolone Sodium Succinate (Solu-Medrol -) 40 mg IVPUSH BID [facility] Last Admin: 03/11/18 21:55 Dose: 40 mg Metoprolol Tartrate (Lopressor -) 75 mg PO HS [facility] Last Admin: 03/11/18 21:46 Dose: 75 mg Metoprolol Tartrate (Lopressor -) 75 mg PO DAILY [facility] Last Admin: 03/11/18 10:15 Dose: 75 mg Mirtazapine (Remeron -) 15 mg PO HS [facility] Last Admin: 03/11/18 21:45 Dose: 15 mg Pantoprazole Sodium (Protonix -) 40 mg PO BID [facility] Last Admin: 03/11/18 21:45 Dose: 40 mg - Objective Vital Signs: Vital Signs Temperature 97.6 F 03/12/18 01:41 Pulse Rate 104 H 03/12/18 07:00 Respiratory Rate 20 03/12/18 07:00 Blood Pressure 136/66 03/12/18 07:00 O2 Sat by Pulse Oximetry (%) 98 03/11/18 20:23 Constitutional: Yes: Well Nourished, Calm Eyes: Yes: WNL HENT: Yes: WNL Neck: Yes: WNL Cardiovascular: Yes: Regular Rate and Rhythm, S1, S2 Respiratory: Yes: Wheezes (FEW WHEEZES) Gastrointestinal: Yes: Normal Bowel Sounds, Soft Extremities: Yes: WNL Edema: No Labs: CBC, BMP 03/12/18 05:30 03/12/18 05:30 INR, PTT INR 1.11 (0.83-1.09) H 03/09/18 18:12 Problem List - Problems (1) Tachycardia Code(s): R00.0 - TACHYCARDIA, UNSPECIFIED (2) COPD exacerbation Code(s): J44.1 - CHRONIC OBSTRUCTIVE PULMONARY DISEASE W (ACUTE) EXACERBATION (3) Cough Code(s): R05 - COUGH (4) Electrolyte abnormality Code(s): E87.8 - OTH DISORDERS OF ELECTROLYTE AND FLUID BALANCE, NEC (5) Hyponatremia Code(s): E87.1 - HYPO-OSMOLALITY AND HYPONATREMIA (6) Metabolic encephalopathy Code(s): G93.41 - METABOLIC ENCEPHALOPATHY (7) SIRS (systemic inflammatory response syndrome) Code(s): R65.10 - SIRS OF NON-INFECTIOUS ORIGIN W/O ACUTE ORGAN DYSFUNCTION (8) Generalized weakness Code(s): R53.1 - WEAKNESS (9) Hyperlipidemia Code(s): E78.5 - HYPERLIPIDEMIA, UNSPECIFIED (10) Rheumatoid arthritis Code(s): M06.9 - RHEUMATOID ARTHRITIS, UNSPECIFIED Assessment/Plan IMP COPD EXACERBATION IMPROVING SIRS AMS HYPONATREMIA IMPROVING HTN HLD DEMENTIA RA HYPOTHYROID PLAN STEROID TAPER ABX INHALED BRONCHODILATORS SUPPLEMENTAL O2 RATE CONTROL IVF MONITOR LYTES,NA DR LOVELACE Problem List - Problems (1) Tachycardia Code(s): R00.0 - TACHYCARDIA, UNSPECIFIED (2) COPD exacerbation Code(s): J44.1 - CHRONIC OBSTRUCTIVE PULMONARY DISEASE W (ACUTE) EXACERBATION (3) Cough Code(s): R05 - COUGH (4) Electrolyte abnormality Code(s): E87.8 - OTH DISORDERS OF ELECTROLYTE AND FLUID BALANCE, NEC (5) Hyponatremia Code(s): E87.1 - HYPO-OSMOLALITY AND HYPONATREMIA (6) Metabolic encephalopathy Code(s): G93.41 - METABOLIC ENCEPHALOPATHY (7) SIRS (systemic inflammatory response syndrome) Code(s): R65.10 - SIRS OF NON-INFECTIOUS ORIGIN W/O ACUTE ORGAN DYSFUNCTION (8) Generalized weakness Code(s): R53.1 - WEAKNESS (9) Hyperlipidemia Code(s): E78.5 - HYPERLIPIDEMIA, UNSPECIFIED (10) Rheumatoid arthritis Code(s): M06.9 - RHEUMATOID ARTHRITIS, UNSPECIFIED
[2018-03-12] MEDS ORDERED: cefTRIAXone SODIUM 1 GM VIAL ONE (10:09)
[2018-03-12] MEDS ORDERED: DEXTROSE 5%-WATER - 50 ML IVPB ONE (10:10)
[2018-03-12] MEDS: methylPREDNISolone NA SUCC 40 MG/1 ML VIAL IVPUSH SCH ×2 (10:21→22:56)
[2018-03-12] MEDS: ACETAMINOPHEN 325 MG TABLET (FP) PO PRN (10:26)
[2018-03-12] MEDS: PANTOPRAZOLE 40 MG TABLET (FP) PO SCH ×2 (10:28→22:56)
[2018-03-12] MEDS: CEFTRIAXONE 1 GM in DEXTROSE 5%-WATER - 50 ML IVPB SCH (10:28)
[2018-03-12] MEDS: DIGOXIN 0.125 MG TABLET (FP) PO SCH (10:28)
[2018-03-12] MEDS: METOPROLOL TARTRATE 50 MG TABLET (FP) PO SCH (10:46)
--- NOTE | 2018-03-12 11:08 | PN ---
Progress Note (short form) - Note Progress Note: cc: alt ms s: no sob, palps, edema, chest pain tele: sinus, PVCs Current Medications Acetaminophen (Tylenol -) 650 mg PO Q6H PRN PRN Reason: FEVER Last Admin: 03/12/18 10:26 Dose: 650 mg Albuterol/Ipratropium (Duoneb -) 1 amp NEB RQID [facility] Last Admin: 03/12/18 08:40 Dose: 1 amp Amlodipine Besylate (Norvasc -) 5 mg PO HS [facility] Last Admin: 03/11/18 21:45 Dose: 5 mg Atorvastatin Calcium (Lipitor -) 40 mg PO HS [facility] Last Admin: 03/11/18 21:46 Dose: 40 mg Digoxin (Lanoxin -) 0.125 mg PO DAILY [facility] Last Admin: 03/12/18 10:28 Dose: 0.125 mg Ceftriaxone Sodium 1 gm/ (Dextrose) 50 mls @ 100 mls/hr IVPB DAILY [facility]; Protocol Last Admin: 03/12/18 10:28 Dose: 100 mls/hr Methylprednisolone Sodium Succinate (Solu-Medrol -) 30 mg IVPUSH BID [facility] Last Admin: 03/12/18 10:21 Dose: 30 mg Metoprolol Tartrate (Lopressor -) 75 mg PO HS [facility] Last Admin: 03/11/18 21:46 Dose: 75 mg Metoprolol Tartrate (Lopressor -) 75 mg PO DAILY [facility] Last Admin: 03/12/18 10:46 Dose: 75 mg Mirtazapine (Remeron -) 15 mg PO HS [facility] Last Admin: 03/11/18 21:45 Dose: 15 mg Pantoprazole Sodium (Protonix -) 40 mg PO BID [facility] Last Admin: 03/12/18 10:28 Dose: 40 mg Vital Signs Vital Signs Period Temp Pulse Resp BP Sys/Barillas Pulse Ox Last 24 Hr 97.6 F-98.1 F 63-113 20-22 136-161/66-92 98 Constitutional: Yes: Well Nourished, No Distress Eyes: No: Sclera Icterus HENT: No: Nasal Congestion Neck: No: Decreased ROM Respiratory: Yes: CTA Bilaterally. No: Accessory Muscle Use, Rales, Tachypnea, Wheezes Gastrointestinal: Yes: Normal Bowel Sounds. No: Distention, Hepatomegaly, Palpable Mass, Tenderness Cardiovascular: Yes: Regular Rate and Rhythm JVD: No Carotid Bruit: No PMI: Non-Displaced Heart Sounds: Yes: S1, S2. No: Gallop Murmur: No: Systolic Murmur, Diastolic Murmur Musculoskeletal: Yes: Other (No kyphosis) Extremities: No: Cold Edema: No Peripheral Pulses: 2+ Left Carotid, 2+ Right Carotid, 2+ Left Doralis Pedis, 2+ Right Dorsalis Pedis Integumentary: No: Jaundice Neurological: Yes: Alert. No: Seizure Psychiatric: No: Agitated Assessment/Plan echo 09/04: nl LV/EF, no RWMA. nl RV. nl LA. mild AI. no RVSP. 4 cm ao root, 4.1 cm ascending. mibi 04/2013: mod septal ischemia per report altered MS: -acute on chronic (baseline dementia) - mental status improving COPD: -treatment per dr levine multifocal atrial tach (MAT): -sec to severe COPD, had several episodes initially, now resolved - continue digoxin and metoprolol, rate controlled htn: -bp control complicated by h/o labile bp's, med non-adherence/confusion at times , and h/o marked orthosatic hypotension with syncope in past -has had no syncope/positional LH sx's in long time, off fludrocortisone since 2016 due to spikes in BPs at that time -bp control much better of late, since med adherence improved -stable readings here, cont home meds hld: -cont home statin possible cad: -prior mibi 2012 reported low-risk area of (septal) ischemia and has been managed medically with no angina sx's -pt with extensive atherosclerotic aorta vascular disease -normal lvef -cont home statin, bb, randall. -ASA held in recent past when developed NSAID-related PUD (dx'd on EGD) WHO 2 pulm HTN: -marked PA dilation noted on prior CTA chest -signif desats to 80s% on 6MWT--declined O2 due to refusal to stop smoking thoracic and abdominal aorta aneurysms: -known ascending aorta aneurysm 4.8 cm, and descending aorta aneurysm 4.0 cm, both unchanged on 01/02 study -small infrarenal AAA 3.2cm, increased vs 2.7 cm in 2016--pt has refused (any) f /u MD office visits or imaging since then--will repeat surveillance imaging while she is here -would be high risk (maybe not prohibitive) for open repair in any case ( ascending aorta not amenable to endovascular approach) + cigs: -repeatedly counselled cessation benefits and available modalities as outpt--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
--- NOTE | 2018-03-12 12:32 | PN ---
Progress Note, Physician - Current Medication List Current Medications: Active Medications Acetaminophen (Tylenol -) 650 mg PO Q6H PRN PRN Reason: FEVER Last Admin: 03/12/18 10:26 Dose: 650 mg Albuterol/Ipratropium (Duoneb -) 1 amp NEB RQID [facility] Last Admin: 03/12/18 11:38 Dose: 1 amp Amlodipine Besylate (Norvasc -) 5 mg PO HS [facility] Last Admin: 03/11/18 21:45 Dose: 5 mg Atorvastatin Calcium (Lipitor -) 40 mg PO HS [facility] Last Admin: 03/11/18 21:46 Dose: 40 mg Digoxin (Lanoxin -) 0.125 mg PO DAILY [facility] Last Admin: 03/12/18 10:28 Dose: 0.125 mg Ceftriaxone Sodium 1 gm/ (Dextrose) 50 mls @ 100 mls/hr IVPB DAILY [facility]; Protocol Last Admin: 03/12/18 10:28 Dose: 100 mls/hr Methylprednisolone Sodium Succinate (Solu-Medrol -) 30 mg IVPUSH BID [facility] Last Admin: 03/12/18 10:21 Dose: 30 mg Metoprolol Tartrate (Lopressor -) 75 mg PO HS [facility] Last Admin: 03/11/18 21:46 Dose: 75 mg Metoprolol Tartrate (Lopressor -) 75 mg PO DAILY [facility] Last Admin: 03/12/18 10:46 Dose: 75 mg Mirtazapine (Remeron -) 15 mg PO HS [facility] Last Admin: 03/11/18 21:45 Dose: 15 mg Pantoprazole Sodium (Protonix -) 40 mg PO BID [facility] Last Admin: 03/12/18 10:28 Dose: 40 mg - Objective Vital Signs: Vital Signs Temperature 98.1 F 03/12/18 09:13 Pulse Rate 91 H 03/12/18 10:28 Respiratory Rate 20 03/12/18 09:13 Blood Pressure 144/84 03/12/18 09:13 O2 Sat by Pulse Oximetry (%) 98 03/11/18 20:23 Labs: CBC, BMP 03/12/18 05:30 03/12/18 05:30 INR, PTT INR 1.11 (0.83-1.09) H 03/09/18 18:12
--- NOTE | 2018-03-12 14:48 | PN ---
Progress Note (short form) - Note Progress Note: s/p hyponatremia na 136 stable may be diuretic induced Current Medications Acetaminophen (Tylenol -) 650 mg PO Q6H PRN PRN Reason: FEVER Last Admin: 03/12/18 10:26 Dose: 650 mg Albuterol/Ipratropium (Duoneb -) 1 amp NEB RQID [facility] Last Admin: 03/12/18 11:38 Dose: 1 amp Amlodipine Besylate (Norvasc -) 5 mg PO HS [facility] Last Admin: 03/11/18 21:45 Dose: 5 mg Atorvastatin Calcium (Lipitor -) 40 mg PO HS [facility] Last Admin: 03/11/18 21:46 Dose: 40 mg Digoxin (Lanoxin -) 0.125 mg PO DAILY [facility] Last Admin: 03/12/18 10:28 Dose: 0.125 mg Ceftriaxone Sodium 1 gm/ (Dextrose) 50 mls @ 100 mls/hr IVPB DAILY [facility]; Protocol Last Admin: 03/12/18 10:28 Dose: 100 mls/hr Methylprednisolone Sodium Succinate (Solu-Medrol -) 30 mg IVPUSH BID [facility] Last Admin: 03/12/18 10:21 Dose: 30 mg Metoprolol Tartrate (Lopressor -) 75 mg PO HS [facility] Last Admin: 03/11/18 21:46 Dose: 75 mg Metoprolol Tartrate (Lopressor -) 75 mg PO DAILY [facility] Last Admin: 03/12/18 10:46 Dose: 75 mg Mirtazapine (Remeron -) 15 mg PO HS [facility] Last Admin: 03/11/18 21:45 Dose: 15 mg Pantoprazole Sodium (Protonix -) 40 mg PO BID [facility] Last Admin: 03/12/18 10:28 Dose: 40 mg Last Vital Signs Temp Pulse Resp BP Pulse Ox 98.1 F 91 H 20 144/84 95 03/12/18 09:13 03/12/18 10:28 03/12/18 09:13 03/12/18 09:13 03/12/18 09:00 CBC, BMP 03/12/18 05:30 03/12/18 05:30
--- NOTE | 2018-03-12 18:00 | PN ---
Progress Note, Physician Chief Complaint: NOTES AND EVENTS REVIEWED PATIENT AWAKE BEDSIDE DENIES SOB ON 02NC - Current Medication List Current Medications: Active Medications Acetaminophen (Tylenol -) 650 mg PO Q6H PRN PRN Reason: FEVER Last Admin: 03/12/18 10:26 Dose: 650 mg Albuterol/Ipratropium (Duoneb -) 1 amp NEB RQID [facility] Last Admin: 03/12/18 16:06 Dose: 1 amp Amlodipine Besylate (Norvasc -) 5 mg PO [facility] Last Admin: 03/11/18 21:45 Dose: 5 mg Atorvastatin Calcium (Lipitor -) 40 mg PO HS [facility] Last Admin: 03/11/18 21:46 Dose: 40 mg Digoxin (Lanoxin -) 0.125 mg PO DAILY [facility] Last Admin: 03/12/18 10:28 Dose: 0.125 mg Ceftriaxone Sodium 1 gm/ (Dextrose) 50 mls @ 100 mls/hr IVPB DAILY [facility]; Protocol Last Admin: 03/12/18 10:28 Dose: 100 mls/hr Methylprednisolone Sodium Succinate (Solu-Medrol -) 30 mg IVPUSH BID [facility] Last Admin: 03/12/18 10:21 Dose: 30 mg Metoprolol Tartrate (Lopressor -) 75 mg PO DAILY [facility] Last Admin: 03/12/18 10:46 Dose: 75 mg Mirtazapine (Remeron -) 15 mg PO [facility] Last Admin: 03/11/18 21:45 Dose: 15 mg Pantoprazole Sodium (Protonix -) 40 mg PO BID [facility] Last Admin: 03/12/18 10:28 Dose: 40 mg - Objective Vital Signs: Vital Signs Temperature 99.0 F 03/12/18 14:56 Pulse Rate 89 03/12/18 14:56 Respiratory Rate 20 03/12/18 09:13 Blood Pressure 150/81 03/12/18 14:56 O2 Sat by Pulse Oximetry (%) 95 03/12/18 09:00 Constitutional: Yes: Mild Distress Eyes: Yes: WNL HENT: Yes: WNL Neck: Yes: WNL Cardiovascular: Yes: Pulse Irregular Respiratory: Yes: Diminished, On Nasal O2, SOB Gastrointestinal: Yes: WNL Genitourinary: Yes: WNL Musculoskeletal: Yes: Muscle Weakness Extremities: Yes: WNL Edema: No Integumentary: Yes: WNL Wound/Incision: Yes: Clean/Dry Neurological: Yes: Pre-Existing Deficit ...Motor Strength: LLE, RLE Psychiatric: Yes: Other Labs: CBC, BMP 03/12/18 05:30 03/12/18 05:30 INR, PTT INR 1.11 (0.83-1.09) H 03/09/18 18:12 Problem List - Problems (1) Bronchitis Code(s): J40 - BRONCHITIS, NOT SPECIFIED ACUTE OR CHRONIC (2) COPD exacerbation Code(s): J44.1 - CHRONIC OBSTRUCTIVE PULMONARY DISEASE W (ACUTE) EXACERBATION (3) Cough Code(s): R05 - COUGH (4) Hyponatremia Code(s): E87.1 - HYPO-OSMOLALITY AND HYPONATREMIA (5) Metabolic encephalopathy Code(s): G93.41 - METABOLIC ENCEPHALOPATHY (6) SIRS (systemic inflammatory response syndrome) Code(s): R65.10 - SIRS OF NON-INFECTIOUS ORIGIN W/O ACUTE ORGAN DYSFUNCTION Assessment/Plan 02 SUPPORT ON NC PT EVAL NEPHROLOGY FOLLOW UP APPRECIATED TACHYCARDIA CONTROLLED, CARDIOLOGY FOLLOW UP IV ABX/STEROIDS TAPER
[2018-03-12] MEDS: amLODIPine BESYLATE 5 MG TABLET (FP) PO SCH (22:56)
[2018-03-12] MEDS: MIRTAZAPINE 15 MG TABLET (FP) PO SCH (22:56)
[2018-03-12] MEDS: ATORVASTATIN CA 40 MG TABLET (FP) PO SCH (22:56)
[2018-03-13] MEDS: ACETAMINOPHEN 325 MG TABLET (FP) PO PRN (03:19)
[2018-03-13] MEDS: ALBUTEROL SO4 2.5/IPRATROPIUM 0.5 INH SOL 3 ML VIAL.NEB. NEB SCH ×4 (08:20→19:14)
--- NOTE | 2018-03-13 08:49 | PN ---
Progress Note, Physician History of Present Illness: pulmonary alert,sitting up in bed,no distress,-sob - Current Medication List Current Medications: Active Medications Acetaminophen (Tylenol -) 650 mg PO Q6H PRN PRN Reason: FEVER Last Admin: 03/13/18 03:19 Dose: 650 mg Albuterol/Ipratropium (Duoneb -) 1 amp NEB RQID [facility] Last Admin: 03/13/18 08:20 Dose: 1 amp Amlodipine Besylate (Norvasc -) [address] [facility] Last Admin: 03/12/18 22:56 Dose: 5 mg Atorvastatin Calcium (Lipitor -) 40 mg PO HS [facility] Last Admin: 03/12/18 22:56 Dose: 40 mg Digoxin (Lanoxin -) 0.125 mg PO DAILY [facility] Last Admin: 03/12/18 10:28 Dose: 0.125 mg Ceftriaxone Sodium 1 gm/ (Dextrose) 50 mls @ 100 mls/hr IVPB DAILY [facility] [place]; Protocol Last Admin: 03/12/18 10:28 Dose: 100 mls/hr Methylprednisolone Sodium Succinate (Solu-Medrol -) 30 mg IVPUSH BID [facility] [place] Last Admin: 03/12/18 22:56 Dose: 30 mg Metoprolol Tartrate (Lopressor -) 75 mg PO DAILY [facility] [place] Last Admin: 03/12/18 10:46 Dose: 75 mg Mirtazapine (Remeron -) [address] [facility] Last Admin: 03/12/18 22:56 Dose: 15 mg Pantoprazole Sodium (Protonix -) 40 mg PO BID [facility] [place] Last Admin: 03/12/18 22:56 Dose: 40 mg - Objective Vital Signs: Vital Signs Temperature 98.2 F 03/13/18 06:00 Pulse Rate 74 03/13/18 06:00 Respiratory Rate 18 03/13/18 06:00 Blood Pressure 132/57 03/13/18 06:00 O2 Sat by Pulse Oximetry (%) 97 03/12/18 21:00 Constitutional: Yes: Calm, Thin Eyes: Yes: WNL HENT: Yes: WNL Neck: Yes: WNL Cardiovascular: Yes: Regular Rate and Rhythm, S1, S2 Respiratory: Yes: Diminished, Wheezes (few wheezes) Gastrointestinal: Yes: Normal Bowel Sounds, Soft Extremities: Yes: WNL Edema: No Labs: CBC, BMP 03/12/18 05:30 Problem List - Problems (1) Tachycardia Code(s): R00.0 - TACHYCARDIA, UNSPECIFIED (2) COPD exacerbation Code(s): J44.1 - CHRONIC OBSTRUCTIVE PULMONARY DISEASE W (ACUTE) EXACERBATION (3) Cough Code(s): R05 - COUGH (4) Electrolyte abnormality Code(s): E87.8 - OTH DISORDERS OF ELECTROLYTE AND FLUID BALANCE, NEC (5) Hyponatremia Code(s): E87.1 - HYPO-OSMOLALITY AND HYPONATREMIA (6) Metabolic encephalopathy Code(s): G93.41 - METABOLIC ENCEPHALOPATHY (7) SIRS (systemic inflammatory response syndrome) Code(s): R65.10 - SIRS OF NON-INFECTIOUS ORIGIN W/O ACUTE ORGAN DYSFUNCTION (8) Generalized weakness Code(s): R53.1 - WEAKNESS (9) Hyperlipidemia Code(s): E78.5 - HYPERLIPIDEMIA, UNSPECIFIED (10) Rheumatoid arthritis Code(s): M06.9 - RHEUMATOID ARTHRITIS, UNSPECIFIED Assessment/Plan IMP COPD EXACERBATION IMPROVING SIRS improved AMS improved HYPONATREMIA IMPROVED HTN HLD DEMENTIA RA HYPOTHYROID PLAN CONTINUE STEROID TAPER ABX INHALED BRONCHODILATORS SUPPLEMENTAL O2 RATE CONTROL IVF MONITOR LYTES,NA DR LOVELACE Problem List - Problems (1) Tachycardia Code(s): R00.0 - TACHYCARDIA, UNSPECIFIED (2) COPD exacerbation Code(s): J44.1 - CHRONIC OBSTRUCTIVE PULMONARY DISEASE W (ACUTE) EXACERBATION (3) Cough Code(s): R05 - COUGH (4) Electrolyte abnormality Code(s): E87.8 - OTH DISORDERS OF ELECTROLYTE AND FLUID BALANCE, NEC (5) Hyponatremia Code(s): E87.1 - HYPO-OSMOLALITY AND HYPONATREMIA (6) Metabolic encephalopathy Code(s): G93.41 - METABOLIC ENCEPHALOPATHY (7) SIRS (systemic inflammatory response syndrome) Code(s): R65.10 - SIRS OF NON-INFECTIOUS ORIGIN W/O ACUTE ORGAN DYSFUNCTION (8) Generalized weakness Code(s): R53.1 - WEAKNESS (9) Hyperlipidemia Code(s): E78.5 - HYPERLIPIDEMIA, UNSPECIFIED (10) Rheumatoid arthritis Code(s): M06.9 - RHEUMATOID ARTHRITIS, UNSPECIFIED
[2018-03-13] MEDS ORDERED: cefTRIAXone SODIUM 1 GM VIAL ONE (08:55)
[2018-03-13] MEDS ORDERED: DEXTROSE 5%-WATER - 50 ML IVPB ONE (08:55)
[2018-03-13] MEDS: DIGOXIN 0.125 MG TABLET (FP) PO SCH (09:21)
[2018-03-13] MEDS: PANTOPRAZOLE 40 MG TABLET (FP) PO SCH ×2 (09:22→21:57)
[2018-03-13] MEDS: METOPROLOL TARTRATE 50 MG TABLET (FP) PO SCH (09:22)
[2018-03-13] MEDS: CEFTRIAXONE 1 GM in DEXTROSE 5%-WATER - 50 ML IVPB SCH (09:22)
[2018-03-13] MEDS: methylPREDNISolone NA SUCC 40 MG/1 ML VIAL IVPUSH SCH ×2 (09:23→21:57)
--- NOTE | 2018-03-13 10:55 | PN ---
Progress Note (short form) - Note Progress Note: cc: alt ms s: no sob, palps, edema, chest pain. tele: sinus, PVCs. had episode this morning 8:30 of HR 120s-150s while seated, otherwise 50s-70s after receiving digoxin and metoprolol Current Medications Acetaminophen (Tylenol -) 650 mg PO Q6H PRN PRN Reason: FEVER Last Admin: 03/13/18 03:19 Dose: 650 mg Albuterol/Ipratropium (Duoneb -) 1 amp NEB RQID [facility] Last Admin: 03/13/18 08:20 Dose: 1 amp Amlodipine Besylate (Norvasc -) 5 mg PO HS [facility] Last Admin: 03/12/18 22:56 Dose: 5 mg Atorvastatin Calcium (Lipitor -) 40 mg PO HS [facility] Last Admin: 03/12/18 22:56 Dose: 40 mg Digoxin (Lanoxin -) 0.125 mg PO DAILY [facility] Last Admin: 03/13/18 09:21 Dose: 0.125 mg Ceftriaxone Sodium 1 gm/ (Dextrose) 50 mls @ 100 mls/hr IVPB DAILY [facility]; Protocol Last Admin: 03/13/18 09:22 Dose: 100 mls/hr Methylprednisolone Sodium Succinate (Solu-Medrol -) 30 mg IVPUSH BID [facility] Last Admin: 03/13/18 09:23 Dose: 30 mg Metoprolol Tartrate (Lopressor -) 75 mg PO DAILY [facility] Last Admin: 03/13/18 09:22 Dose: 75 mg Mirtazapine (Remeron -) 15 mg PO HS [facility] Last Admin: 03/12/18 22:56 Dose: 15 mg Pantoprazole Sodium (Protonix -) 40 mg PO BID [facility] Last Admin: 03/13/18 09:22 Dose: 40 mg Vital Signs Vital Signs Period Temp Pulse Resp BP Sys/Barillas Pulse Ox Last 24 Hr 97.6 F-99.0 F 62-102 18-18 125-169/57-81 96-97 Constitutional: Yes: Well Nourished, No Distress Eyes: No: Sclera Icterus HENT: No: Nasal Congestion Neck: No: Decreased ROM Respiratory: Yes: CTA Bilaterally. No: Accessory Muscle Use, Rales, Tachypnea, Wheezes Gastrointestinal: Yes: Normal Bowel Sounds. No: Distention, Hepatomegaly, Palpable Mass, Tenderness Cardiovascular: Yes: Regular Rate and Rhythm JVD: No Carotid Bruit: No PMI: Non-Displaced Heart Sounds: Yes: S1, S2. No: Gallop Murmur: No: Systolic Murmur, Diastolic Murmur Musculoskeletal: Yes: Other (No kyphosis) Extremities: No: Cold Edema: No Peripheral Pulses: 2+ Left Carotid, 2+ Right Carotid, 2+ Left Doralis Pedis, 2+ Right Dorsalis Pedis Integumentary: No: Jaundice Neurological: Yes: Alert. No: Seizure Psychiatric: No: Agitated Assessment/Plan echo 09/04: nl LV/EF, no RWMA. nl RV. nl LA. mild AI. no RVSP. 4 cm ao root, 4.1 cm ascending. mibi 04/2013: mod septal ischemia per report altered MS: -acute on chronic (baseline dementia) - mental status improving COPD: -treatment per dr levine multifocal atrial tach (MAT): -sec to severe COPD, had several episodes initially - brief episode this morning prior to receiving meds noted, resolved, was asymptomatic - would continue current doses given occasional bradycardia, if continues to have high rate episodes will increase metoprolol - continue digoxin and metoprolol, rate controlled htn: -bp control complicated by h/o labile bp's, med non-adherence/confusion at times , and h/o marked orthosatic hypotension with syncope in past -has had no syncope/positional LH sx's in long time, off fludrocortisone since 2016 due to spikes in BPs at that time -bp control much better of late, since med adherence improved -stable readings here, cont home meds hld: -cont home statin possible cad: -prior mibi 2012 reported low-risk area of (septal) ischemia and has been managed medically with no angina sx's -pt with extensive atherosclerotic aorta vascular disease -normal lvef -cont home statin, bb, randall. -ASA held in recent past when developed NSAID-related PUD (dx'd on EGD) WHO 2 pulm HTN: -marked PA dilation noted on prior CTA chest -signif desats to 80s% on 6MWT--declined O2 due to refusal to stop smoking thoracic and abdominal aorta aneurysms: -known ascending aorta aneurysm 4.8 cm, and descending aorta aneurysm 4.0 cm, both unchanged on 6/17 study -small infrarenal AAA 3.2cm, increased vs 2.7 cm in 2016--pt has refused (any) f /u MD office visits or imaging since then--will repeat surveillance imaging while she is here -would be high risk (maybe not prohibitive) for open repair in any case ( ascending aorta not amenable to endovascular approach) + cigs: -repeatedly counselled cessation benefits and available modalities as outpt--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
--- NOTE | 2018-03-13 11:18 | PN ---
Progress Note, Physician Chief Complaint: AWAKE NAD TOLERATING MEALS - Current Medication List Current Medications: Active Medications Acetaminophen (Tylenol -) 650 mg PO Q6H PRN PRN Reason: FEVER Last Admin: 03/13/18 03:19 Dose: 650 mg Albuterol/Ipratropium (Duoneb -) 1 amp NEB RQID [facility], [facility] Last Admin: 03/13/18 08:20 Dose: 1 amp Amlodipine Besylate (Norvasc -) 5 mg PO [facility] Last Admin: 03/12/18 22:56 Dose: 5 mg Atorvastatin Calcium (Lipitor -) 40 mg PO HS [facility], [facility] Last Admin: 03/12/18 22:56 Dose: 40 mg Digoxin (Lanoxin -) 0.125 mg PO DAILY [facility] Last Admin: 03/13/18 09:21 Dose: 0.125 mg Ceftriaxone Sodium 1 gm/ (Dextrose) 50 mls @ 100 mls/hr IVPB DAILY [facility], [facility]; Protocol Last Admin: 03/13/18 09:22 Dose: 100 mls/hr Methylprednisolone Sodium Succinate (Solu-Medrol -) 30 mg IVPUSH BID [facility], [facility] Last Admin: 03/13/18 09:23 Dose: 30 mg Metoprolol Tartrate (Lopressor -) 75 mg PO DAILY [facility] Last Admin: 03/13/18 09:22 Dose: 75 mg Mirtazapine (Remeron -) 15 mg PO [facility] Last Admin: 03/12/18 22:56 Dose: 15 mg Pantoprazole Sodium (Protonix -) 40 mg PO BID [facility] Last Admin: 03/13/18 09:22 Dose: 40 mg - Objective Vital Signs: Vital Signs Temperature 98 F 03/13/18 10:00 Pulse Rate 85 03/13/18 10:00 Respiratory Rate 18 03/13/18 10:00 Blood Pressure 153/80 03/13/18 10:00 O2 Sat by Pulse Oximetry (%) 96 03/13/18 09:00 Constitutional: Yes: Mild Distress Eyes: Yes: WNL HENT: Yes: WNL Neck: Yes: WNL Cardiovascular: Yes: Pulse Irregular Respiratory: Yes: Diminished, On Nasal O2 Gastrointestinal: Yes: WNL Genitourinary: Yes: Incontinence Musculoskeletal: Yes: Muscle Weakness Extremities: Yes: WNL Edema: No Peripheral Pulses WNL: Yes Integumentary: Yes: Other Wound/Incision: Yes: Dressing Dry and Intact Neurological: Yes: Pre-Existing Deficit ...Motor Strength: LLE, RLE Psychiatric: Yes: Other Labs: CBC, BMP 03/12/18 05:30 03/12/18 05:30 INR, PTT INR 1.11 (0.83-1.09) H 03/09/18 18:12 Problem List - Problems (1) Bronchitis Code(s): J40 - BRONCHITIS, NOT SPECIFIED ACUTE OR CHRONIC (2) COPD exacerbation Code(s): J44.1 - CHRONIC OBSTRUCTIVE PULMONARY DISEASE W (ACUTE) EXACERBATION (3) Cough Code(s): R05 - COUGH (4) Hyponatremia Code(s): E87.1 - HYPO-OSMOLALITY AND HYPONATREMIA (5) Metabolic encephalopathy Code(s): G93.41 - METABOLIC ENCEPHALOPATHY (6) SIRS (systemic inflammatory response syndrome) Code(s): R65.10 - SIRS OF NON-INFECTIOUS ORIGIN W/O ACUTE ORGAN DYSFUNCTION Assessment/Plan 02 SUPPORT ON NC PT EVAL NEPHROLOGY FOLLOW UP APPRECIATED TACHYCARDIA CONTROLLED, CARDIOLOGY FOLLOW UP IV ABX/STEROIDS TAPER SNF PLACEMENT
[2018-03-13] MEDS ORDERED: ONDANSETRON *ODT* 4 MG TABLET SL PRN (12:23)
--- NOTE | 2018-03-13 20:16 | PN ---
Progress Note (short form) - Note Progress Note: problems s/p hyponatremia na 136 stable may be diuretic induced Current Medications Acetaminophen (Tylenol -) 650 mg PO Q6H PRN PRN Reason: FEVER Last Admin: 03/13/18 03:19 Dose: 650 mg Albuterol/Ipratropium (Duoneb -) 1 amp NEB RQID ON LICENSE OF [facility] Last Admin: 03/13/18 19:14 Dose: 1 amp Amlodipine Besylate (Norvasc -) 5 mg PO HS ON LICENSE OF [facility] Last Admin: 03/12/18 22:56 Dose: 5 mg Atorvastatin Calcium (Lipitor -) 40 mg PO HS ON LICENSE OF [facility] Last Admin: 03/12/18 22:56 Dose: 40 mg Digoxin (Lanoxin -) 0.125 mg PO DAILY ON LICENSE OF [facility] Last Admin: 03/13/18 09:21 Dose: 0.125 mg Ceftriaxone Sodium 1 gm/ (Dextrose) 50 mls @ 100 mls/hr IVPB DAILY ON LICENSE OF [facility]; Protocol Last Admin: 03/13/18 09:22 Dose: 100 mls/hr Methylprednisolone Sodium Succinate (Solu-Medrol -) 30 mg IVPUSH BID ON LICENSE OF [facility] Last Admin: 03/13/18 09:23 Dose: 30 mg Metoprolol Tartrate (Lopressor -) 75 mg PO DAILY ON LICENSE OF [facility] Last Admin: 03/13/18 09:22 Dose: 75 mg Mirtazapine (Remeron -) 15 mg PO [facility] Last Admin: 03/12/18 22:56 Dose: 15 mg Ondansetron HCl (Zofran Odt -) 4 mg SL Q6H PRN PRN Reason: NAUSEA AND/OR VOMITING Pantoprazole Sodium (Protonix -) 40 mg PO BID ON LICENSE OF [facility] Last Admin: 03/13/18 09:22 Dose: 40 mg Last Vital Signs Temp Pulse Resp BP Pulse Ox 98.2 F 76 18 135/74 96 03/13/18 17:00 03/13/18 17:00 03/13/18 17:00 03/13/18 17:00 03/13/18 09:00 lungs clear heart reg abd soft ext no edema CBC, BMP 03/12/18 05:30 03/12/18 05:30 IMP- s/p severe hyponatremia, diuretic induced Plan- monitor serum sodium while in hosp
[2018-03-13] MEDS: MIRTAZAPINE 15 MG TABLET (FP) PO SCH (21:57)
[2018-03-13] MEDS: ATORVASTATIN CA 40 MG TABLET (FP) PO SCH (21:57)
[2018-03-13] MEDS: amLODIPine BESYLATE 5 MG TABLET (FP) PO SCH (21:57)
[2018-03-14] MEDS: ALBUTEROL SO4 2.5/IPRATROPIUM 0.5 INH SOL 3 ML VIAL.NEB. NEB SCH ×2 (07:46→11:04)
[2018-03-14 08:09] LABS: ANION GAP 9 MMOL/L (8-16); BLOOD UREA NITROGEN 13 mg/dL (7-18); CALCIUM 8.5 mg/dL (8.5-10.1); CHLORIDE 93 mmol/L (98-107); CO2 34 mmol/L (21-32); CREATININE 0.3 mg/dL (0.55-1.02); GLUCOSE,RANDOM 112 mg/dL (74-106); POTASSIUM 3.5 mmol/L (3.5-5.1); SODIUM 136 mmol/L (136-145)
[2018-03-14] MEDS ORDERED: DEXTROSE 5%-WATER - 50 ML IVPB ONE (08:26)
[2018-03-14] MEDS ORDERED: cefTRIAXone SODIUM 1 GM VIAL ONE (08:26)
[2018-03-14] MEDS: CEFTRIAXONE 1 GM in DEXTROSE 5%-WATER - 50 ML IVPB SCH (09:01)
[2018-03-14] MEDS: DIGOXIN 0.125 MG TABLET (FP) PO SCH (09:01)
[2018-03-14] MEDS: PANTOPRAZOLE 40 MG TABLET (FP) PO SCH (09:01)
[2018-03-14] MEDS: METOPROLOL TARTRATE 50 MG TABLET (FP) PO SCH (09:01)
[2018-03-14] MEDS: methylPREDNISolone NA SUCC 40 MG/1 ML VIAL IVPUSH SCH (09:01)
[2018-03-14 09:02] VITALS: PULSE 80
--- NOTE | 2018-03-14 09:46 | PN ---
Progress Note, Physician History of Present Illness: PULMONARY ALERT,NO DISTRESS,-SOB,MIN COUGH - Current Medication List Current Medications: Active Medications Acetaminophen (Tylenol -) 650 mg PO Q6H PRN PRN Reason: FEVER Last Admin: 03/13/18 03:19 Dose: 650 mg Albuterol/Ipratropium (Duoneb -) 1 amp NEB RQID [facility] Last Admin: 03/14/18 07:46 Dose: Not Given Amlodipine Besylate (Norvasc -) 5 mg PO [facility] Last Admin: 03/13/18 21:57 Dose: 5 mg Atorvastatin Calcium (Lipitor -) 40 mg PO HS [facility] Last Admin: 03/13/18 21:57 Dose: 40 mg Digoxin (Lanoxin -) 0.125 mg PO DAILY [facility] Last Admin: 03/14/18 09:01 Dose: 0.125 mg Ceftriaxone Sodium 1 gm/ (Dextrose) 50 mls @ 100 mls/hr IVPB DAILY [facility]; Protocol Last Admin: 03/14/18 09:01 Dose: 100 mls/hr Methylprednisolone Sodium Succinate (Solu-Medrol -) 30 mg IVPUSH BID [facility] Last Admin: 03/14/18 09:01 Dose: 30 mg Metoprolol Tartrate (Lopressor -) 75 mg PO DAILY [facility] Last Admin: 03/14/18 09:01 Dose: 75 mg Mirtazapine (Remeron -) 15 mg PO [facility] Last Admin: 03/13/18 21:57 Dose: 15 mg Ondansetron HCl (Zofran Odt -) 4 mg SL Q6H PRN PRN Reason: NAUSEA AND/OR VOMITING Pantoprazole Sodium (Protonix -) 40 mg PO BID [facility] Last Admin: 03/14/18 09:01 Dose: 40 mg - Objective Vital Signs: Vital Signs Temperature 97.7 F 03/14/18 05:00 Pulse Rate 80 03/14/18 09:01 Respiratory Rate 18 03/14/18 05:00 Blood Pressure 119/69 03/14/18 05:00 O2 Sat by Pulse Oximetry (%) 96 03/13/18 21:00 Constitutional: Yes: Calm, Thin Eyes: Yes: WNL HENT: Yes: WNL Neck: Yes: WNL Cardiovascular: Yes: Regular Rate and Rhythm, S1, S2 Respiratory: Yes: Diminished, Rhonchi (FEW RHONCHI) Gastrointestinal: Yes: Normal Bowel Sounds, Soft Extremities: Yes: WNL Edema: No Labs: CBC, BMP 03/14/18 06:00 INR, PTT INR 1.11 (0.83-1.09) H 03/09/18 18:12 Problem List - Problems (1) Tachycardia Code(s): R00.0 - TACHYCARDIA, UNSPECIFIED (2) COPD exacerbation Code(s): J44.1 - CHRONIC OBSTRUCTIVE PULMONARY DISEASE W (ACUTE) EXACERBATION (3) Cough Code(s): R05 - COUGH (4) Electrolyte abnormality Code(s): E87.8 - OTH DISORDERS OF ELECTROLYTE AND FLUID BALANCE, NEC (5) Hyponatremia Code(s): E87.1 - HYPO-OSMOLALITY AND HYPONATREMIA (6) Metabolic encephalopathy Code(s): G93.41 - METABOLIC ENCEPHALOPATHY (7) SIRS (systemic inflammatory response syndrome) Code(s): R65.10 - SIRS OF NON-INFECTIOUS ORIGIN W/O ACUTE ORGAN DYSFUNCTION (8) Generalized weakness Code(s): R53.1 - WEAKNESS (9) Hyperlipidemia Code(s): E78.5 - HYPERLIPIDEMIA, UNSPECIFIED (10) Rheumatoid arthritis Code(s): M06.9 - RHEUMATOID ARTHRITIS, UNSPECIFIED Assessment/Plan IMP COPD EXACERBATION IMPROVED SIRS improved AMS improved HYPONATREMIA IMPROVED HTN HLD DEMENTIA RA HYPOTHYROID PLAN PREDNISONE ABX INHALED BRONCHODILATORS SUPPLEMENTAL O2 IVF MONITOR CITLALY DO DR Problem List - Problems (1) Tachycardia Code(s): R00.0 - TACHYCARDIA, UNSPECIFIED (2) COPD exacerbation Code(s): J44.1 - CHRONIC OBSTRUCTIVE PULMONARY DISEASE W (ACUTE) EXACERBATION (3) Cough Code(s): R05 - COUGH (4) Electrolyte abnormality Code(s): E87.8 - OTH DISORDERS OF ELECTROLYTE AND FLUID BALANCE, NEC (5) Hyponatremia Code(s): E87.1 - HYPO-OSMOLALITY AND HYPONATREMIA (6) Metabolic encephalopathy Code(s): G93.41 - METABOLIC ENCEPHALOPATHY (7) SIRS (systemic inflammatory response syndrome) Code(s): R65.10 - SIRS OF NON-INFECTIOUS ORIGIN W/O ACUTE ORGAN DYSFUNCTION (8) Generalized weakness Code(s): R53.1 - WEAKNESS (9) Hyperlipidemia Code(s): E78.5 - HYPERLIPIDEMIA, UNSPECIFIED (10) Rheumatoid arthritis Code(s): M06.9 - RHEUMATOID ARTHRITIS, UNSPECIFIED
--- NOTE | 2018-03-14 09:54 | DS ---
Physical Examination Vital Signs: Vital Signs Temperature 97.7 F 03/14/18 05:00 Pulse Rate 80 03/14/18 09:01 Respiratory Rate 18 03/14/18 05:00 Blood Pressure 119/69 03/14/18 05:00 O2 Sat by Pulse Oximetry (%) 96 03/13/18 21:00 Cardiovascular: Yes: Tachycardia, S1, S2 Respiratory: Yes: Regular, CTA Bilaterally Gastrointestinal: Yes: Normal Bowel Sounds, Soft Labs: CBC, BMP 03/12/18 05:30 03/14/18 06:00 Discharge Summary Reason For Visit: COUGH,HYPONATREMIA Current Active Problems Bronchitis (Acute) COPD exacerbation (Acute) Cough (Acute) Electrolyte abnormality (Acute) Fever (Acute) Hypokalemia (Acute) Hyponatremia (Acute) Hyponatremia (Acute) Metabolic encephalopathy (Acute) SIRS (systemic inflammatory response syndrome) (Acute) Tachycardia (Acute) Tachycardia (Acute) Hospital Course: - Problems (1) Hyponatremia Assessment/Plan: Improved Likely secondary to Dehydration Admit to Telemetry Continue cardiac monitoring NS given in ED Na correction goal 6-8meq/24hr renal Consult Code(s): E87.1 - HYPO-OSMOLALITY AND HYPONATREMIA (2) SIRS (systemic inflammatory response syndrome) Assessment/Plan: Blood cultures pending urine culture pending Vancomycin and Zosyn given in ED Appreciate ID consult--Rocephin Code(s): R65.10 - SIRS OF NON-INFECTIOUS ORIGIN W/O ACUTE ORGAN DYSFUNCTION (3) Decreased appetite Assessment/Plan: -Gi consult noted--for ct scan -monitor Code(s): R63.0 - ANOREXIA (4) Metabolic encephalopathy Assessment/Plan: dementia and infection-hyponatremia likely secondary to electrolyte imbalance vs UTI CT Head- neg ICH Replete lytes and continue to monitor fall precautions Code(s): G93.41 - METABOLIC ENCEPHALOPATHY (5) COPD exacerbation Assessment/Plan: Chest xray-reviewed pt was hypoxia on arrival slight improvement with O2, Duonebs Continue home meds Monitor vitals Appreciate Pulm consult Code(s): J44.1 - CHRONIC OBSTRUCTIVE PULMONARY DISEASE W (ACUTE) EXACERBATION (6) Tachycardia Assessment/Plan: -cardio noted -follow rate Code(s): R00.0 - TACHYCARDIA, UNSPECIFIED Condition: Guarded - Instructions Referrals: Devin Fajardo MD [Primary Care Provider] - - Home Medications Comprehensive Discharge Medication List: Ambulatory Orders Amlodipine Besylate [Norvasc -] 5 mg PO HS 10/26/16 Enalapril Maleate [Vasotec] 20 mg PO HS 10/26/16 Gabapentin [Neurontin] 600 mg PO DAILY 10/26/16 Levothyroxine [Synthroid -] 25 mcg PO DAILY 10/26/16 Methotrexate [Mexate -] 20 mg PO Q7D 10/26/16 Metoprolol Tartrate [Lopressor -] 50 mg PO DAILY 10/26/16 hydrALAZINE HCL [Apresoline -] 25 mg PO DAILY PRN 10/26/16 predniSONE [Deltasone -] 5 mg PO DAILY 10/26/16 Furosemide 20 mg PO DAILY PRN 12/06/17 Morphine *Immediate Release* [Msir -] 15 mg PO BID 12/06/17 Pantoprazole Sodium [Protonix -] 40 mg PO BID tablet.ec 12/08/17 Ascorbic Acid [Vitamin C] 500 mg PO DAILY 03/09/18 Atorvastatin Ca [Lipitor] 40 mg PO HS 03/09/18 Metoprolol Tartrate 75 mg PO HS 03/09/18 Mirtazapine 15 mg PO HS 03/09/18 Multivitamins [Tab-A-Vit -] 1 tab PO DAILY 03/09/18 Potassium 99 mg PO DAILY 03/09/18
[2018-03-14] MEDS ORDERED: predniSONE 20 MG TABLET (UD) PO SCH (10:00)
[2018-03-14 10:43] VITALS: BP 145/66; TEMP 98
--- NOTE | 2018-03-14 11:00 | PN ---
Progress Note (short form) - Note Progress Note: cc: alt ms s: no sob, palps, edema, chest pain. tele: sinus, brief MAT Current Medications Generic Name Dose Route Start Last Admin Trade Name Freq PRN Reason Stop Dose Admin Acetaminophen 650 mg 03/10/18 19:38 03/13/18 03:19 Tylenol - PO 650 mg Q6H PRN Administration FEVER Albuterol/Ipratropium 1 amp 03/11/18 12:00 03/14/18 07:46 Duoneb - NEB Not Given RQID MAUREEN Amlodipine Besylate 5 mg 03/10/18 22:00 03/13/18 21:57 Norvasc - PO 5 mg HS MAUREEN Administration Atorvastatin Calcium 40 mg 03/10/18 22:00 03/13/18 21:57 Lipitor - PO 40 mg HS MAUREEN Administration Digoxin 0.125 mg 03/10/18 14:45 03/14/18 09:01 Lanoxin - PO 0.125 mg DAILY MAUREEN Administration Ceftriaxone Sodium 1 gm/ 50 mls @ 100 mls/hr 03/10/18 16:15 03/14/18 09:01 Dextrose IVPB 100 mls/hr DAILY MAUREEN Administration Protocol Metoprolol Succinate 100 mg 03/14/18 10:00 03/14/18 10:49 Toprol Xl - PO Not Given BID MAUREEN Mirtazapine 15 mg 03/10/18 22:00 03/13/18 21:57 Remeron - PO 15 mg HS MAUREEN Administration Ondansetron HCl 4 mg 03/13/18 12:23 Zofran Odt - SL Q6H PRN NAUSEA AND/OR VOMITING Pantoprazole Sodium 40 mg 03/10/18 22:00 03/14/18 09:01 Protonix - PO 40 mg BID MAUREEN Administration Prednisone 40 mg 03/14/18 10:00 03/14/18 10:49 Deltasone - PO Not Given DAILY MAUREEN Vital Signs Period Temp Pulse Resp BP Sys/[place]illas Pulse Ox Last 24 Hr 97.7 F-98.5 F 72-99 18-18 119-149/54-74 96-97 Constitutional: Yes: Well Nourished, No Distress Eyes: No: Sclera Icterus Respiratory: Yes: CTA Bilaterally. No: Accessory Muscle Use, Rales, Tachypnea, Wheezes Gastrointestinal: Yes: Normal Bowel Sounds. No: Distention, Hepatomegaly, Palpable Mass, Tenderness Cardiovascular: Yes: Regular Rate and Rhythm JVD: No Heart Sounds: Yes: S1, S2. No: Gallop Murmur: No: Systolic Murmur, Diastolic Murmu Extremities: No: Cold Edema: No Integumentary: No: Jaundice Neurological: Yes: Alert. No: Seizure Psychiatric: No: Agitated CBC, BMP 03/12/18 05:30 03/14/18 06:00 Assessment/Plan echo 09/04: nl LV/EF, no RWMA. nl RV. nl LA. mild AI. no RVSP. 4 cm ao root, 4.1 cm ascending. mibi 04/2013: mod septal ischemia per report altered MS: -acute on chronic (baseline dementia) -mental status improving COPD: -treatment per pulm multifocal atrial tach (MAT): -sec to severe COPD, had several episodes initially, asymptomatic -would continue current doses given occasional bradycardia, if continues to have high rate episodes will increase metoprolol -continue digoxin and metoprolol htn: -bp control complicated by h/o labile bp's, med non-adherence/confusion at times , and h/o marked orthosatic hypotension with syncope in past -has had no syncope/positional LH sx's in long time, off fludrocortisone since 2016 due to spikes in BPs at that time -bp control much better of late, since med adherence improved -stable readings here, cont home meds hld: -cont home statin possible cad: -prior mibi 2012 reported low-risk area of (septal) ischemia and has been managed medically with no angina sx's -pt with extensive atherosclerotic aorta vascular disease -normal lvef -cont home statin, bb, randall. -ASA held in recent past when developed NSAID-related PUD (dx'd on EGD) WHO 2 pulm HTN: -marked PA dilation noted on prior CTA chest -signif desats to 80s% on 6MWT--declined O2 due to refusal to stop smoking thoracic and abdominal aorta aneurysms: -known ascending aorta aneurysm 4.8 cm, and descending aorta aneurysm 4.0 cm, both unchanged on 01/02 study -small infrarenal AAA 3.2cm, increased vs 2.7 cm in 2016--pt has refused (any) f /u MD office visits or imaging since then--will repeat surveillance imaging while she is here -would be high risk (maybe not prohibitive) for open repair in any case ( ascending aorta not amenable to endovascular approach) + cigs: -repeatedly counselled cessation benefits and available modalities as outpt--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
== END 2018-03-14 14:28 | disposition home health service (06) | DRG 190 ==
LOC: JER 17:37 → JERBED 18:27 → J4W 03-10 00:54
PROVIDERS: ADMIT Internal Medicine; ATTEND Family Medicine
DX: J44.1 Chronic obstructive pulmonary disease with (acute) exacerbation (principal); G93.41 Metabolic encephalopathy; E87.1 Hypo-osmolality and hyponatremia; R65.10 Systemic inflammatory response syndrome (SIRS) of non-infectious origin without acute organ dysfunction; I47.1 Supraventricular tachycardia; Z68.1 Body mass index [BMI] 19.9 or less, adult; E78.5 Hyperlipidemia, unspecified; E03.9 Hypothyroidism, unspecified; F03.90 Unspecified dementia, unspecified severity, without behavioral disturbance, psychotic disturbance, mood disturbance, and anxiety; G89.29 Other chronic pain; F17.210 Nicotine dependence, cigarettes, uncomplicated; E87.6 Hypokalemia; I25.10 Atherosclerotic heart disease of native coronary artery without angina pectoris; E86.0 Dehydration; I11.0 Hypertensive heart disease with heart failure; I50.9 Heart failure, unspecified; M06.9 Rheumatoid arthritis, unspecified; E87.8 Other disorders of electrolyte and fluid balance, not elsewhere classified; I27.20 Pulmonary hypertension, unspecified; I71.6 Thoracoabdominal aortic aneurysm, without rupture; G90.9 Disorder of the autonomic nervous system, unspecified; I48.91 Unspecified atrial fibrillation; K63.5 Polyp of colon; J06.9 Acute upper respiratory infection, unspecified; R63.0 Anorexia
CPT/HCPCS: 36415; 70450-TC; 71045-TC-FY; 71275-TC; 74175-TC; 80048; 80053; 80162; 81003; 81015; 82533; 82550; 82803; 83605; 83690; 83735; 83930; 83935; 84100; 84300; 84443; 84484; 85025; 85610; 85730; 86850; 86900; 86901; 87040; 87086; 93005; 93010; 94640; 97116-GP; 97161-GP; 99283-25; J0131; J7030; J7620; Q0162

== ENCOUNTER 2019-03-07 17:10 | Inpatient (IN) | payer OTHER, BC ==
[2019-03-07] MEDS ORDERED: methylPREDNISolone NA SUCC 125 MG/2 ML VIAL IVPUSH ONE (18:16)
[2019-03-07] MEDS ORDERED: SODIUM CHLORIDE 1,000 ML IV STA (18:16)
[2019-03-07] MEDS ORDERED: ALBUTEROL SO4 2.5/IPRATROPIUM 0.5 INH SOL 3 ML VIAL.NEB. NEB ONE ×2 (18:16→19:05)
[2019-03-07] MEDS ORDERED: ACETAMINOPHEN 1000 MG/100 ML VIAL (NON FORMULARY) IVPB ONE (18:16)
[2019-03-07] MEDS ORDERED: CEFTRIAXONE 1 GM in DEXTROSE 5%-WATER - 100 ML IVPB ONE (18:16)
[2019-03-07] MEDS ORDERED: AZITHROMYCIN IVPB 500 MG in DEXTROSE 5%-WATER - 250 ML IVPB ONE (18:17)
--- NOTE | 2019-03-07 18:27 | PDOC ---
History of Present Illness - General History Source: Patient Exam Limitations: No Limitations, Dementia - History of Present Illness Initial Comments: 03/07/19 18:27 73yo F with PMH of COPD, CHF?, AAA, Thoracic Aneurysm, HTN, HLD, Dementia, Hypothyroidism, RA, Chronic Pain, presenting to ED with complaints of SOB. Patient states that for the last 2-3 days she has been short of breath especially with exertion. She says she does not have any breathing treatments or inhalers at home. She says that her breathing is fine when she is at rest. She endorses pain with inspiration. Denies chest pain, cough, fevers, chills, abdominal pain, n/v/d, sick contacts, recent travel, leg swelling, calf pain, recent surgeries, orthopnea, lightheadedness, weakness, numbness/tingling. PMD: Tana PMH: see hpi PSH: none Meds: see med rec Allergies: sulfa Social: quit smoking 1y ago. <Ana Rapp - Last Filed: 03/07/19 22:14> <Rukhsana Ferrari - Last Filed: 03/08/19 07:15> - General Chief Complaint: Shortness of Breath Stated Complaint: SHORTNESS OF BREATH Time Seen by Provider: 03/07/19 17:47 Past History - Past Medical History Anemia: No Asthma: Yes Cancer: No Cardiac Disorders: Yes (ATRIAL FIBRILLATION) CVA: Yes (TIA'S) COPD: Yes CHF: No Dementia: Yes (Memory loss) Diabetes: No GI Disorders: Yes (CHRONIC ABD PAIN; DIVERTICULOSIS;HIATAL HERNIA) Disorders: No HTN: Yes Hypercholesterolemia: Yes Liver Disease: No Seizures: No Thyroid Disease: Yes (HYPOTHYROID) - Surgical History Abdominal Surgery: Yes (LAP SHARI 05/04) Cardiac Surgery: No Cholecystectomy: Yes Lung Surgery: No Neurologic Surgery: No Orthopedic Surgery: Yes (Left Toal Hip Replacement) - Immunization History Td Vaccination: Yes (6 YEARS AGO) Immunization Up to Date: Yes - Suicide/Smoking/Psychosocial Hx Smoking Status: Yes Smoking History: Unknown if ever smoked Have you smoked in the past 12 months: No Number of Cigarettes Smoked Daily: 20 'Breaking Loose' booklet given: 04/13/17 Hx Alcohol Use: No Drug/Substance Use Hx: No Substance Use Type: None Hx Substance Use Treatment: No <Ana Rapp - Last Filed: 03/07/19 22:14> <Rukhsana Ferrari - Last Filed: 03/08/19 07:15> - Past Medical History Allergies/Adverse Reactions: Allergies Allergy/AdvReac Type Severity Reaction Status Date / Time Sulfa (Sulfonamide Allergy Hives Verified 03/09/18 18:06 Antibiotics) dipyridamole AdvReac Mild headache Verified 03/09/18 18:06 [From Persantine] indomethacin [From Indocin] AdvReac Mild headache Verified 03/09/18 18:06 Home Medications: Ambulatory Orders Amlodipine Besylate 5 mg PO DAILY 03/07/19 Digoxin [Lanoxin -] 0.125 mg PO DAILY 03/07/19 Furosemide [Lasix] 20 mg PO DAILY 03/07/19 Levothyroxine [Synthroid -] 0 mcg PO DAILY 03/07/19 Methotrexate Sodium [Methotrexate] 2.5 mg PO ASDIR 03/07/19 Ondansetron [Zofran -] 4 mg PO PRN 03/07/19 Pantoprazole Sodium 40 mg PO DAILY 03/07/19 Prednisone 10 mg PO DAILY 03/07/19 Review of Systems - Review of Systems Constitutional: No: Symptoms Reported HEENTM: No: Symptoms Reported Respiratory: Yes: See HPI Cardiac (ROS): Yes: See HPI ABD/GI: No: Symptoms Reported : No: Symptoms Reported Musculoskeletal: No: Symptoms Reported Integumentary: No: Symptoms Reported <Ana Rapp - Last Filed: 03/07/19 22:14> *Physical Exam - Vital Signs Last Vital Signs Temp Pulse Resp BP Pulse Ox 99.0 F 127 H 22 H 143/65 98 03/07/19 17:32 03/07/19 17:32 03/07/19 17:32 03/07/19 17:32 03/07/19 17:32 - Physical Exam General Appearance: Yes: Nourished, Appropriately Dressed. No: Apparent Distress HEENT: positive: EOMI, CANELO Neck: positive: Trachea midline, Supple. negative: Lymphadenopathy (R), Lymphadenopathy (L) Respiratory/Chest: positive: Decreased Breath Sounds. negative: Crackles, Rales , Rhonchi, Wheezing Cardiovascular: positive: Regular Rhythm, Tachycardia. negative: Edema, JVD, Murmur Gastrointestinal/Abdominal: positive: Normal Bowel Sounds, Soft. negative: Tender Musculoskeletal: negative: CVA Tenderness Extremity: positive: Normal Capillary Refill, Pelvis Stable, Swelling (non pitting bilateral ankles). negative: Calf Tenderness Integumentary: positive: Normal Color, Dry, Warm. negative: Swelling Neurologic: positive: hand worker II-XII NML intact, Fully Oriented, Alert, Normal Mood/ Affect, Normal Response, Motor Strength 5/5 <Ana Rapp - Last Filed: 03/07/19 22:14> - Vital Signs Last Vital Signs Temp Pulse Resp BP Pulse Ox 96.8 F L 105 H 17 133/75 94 L 03/08/19 04:25 03/08/19 07:04 03/08/19 07:04 03/08/19 07:04 03/08/19 07:04 <Rukhsana Ferrari - Last Filed: 03/08/19 07:15> ED Treatment Course - LABORATORY CBC & Chemistry Diagram: 03/07/19 18:50 03/07/19 18:50 - RADIOLOGY Radiology Studies Ordered: Category Date Time Status CHEST PA & LAT [RAD] Stat Radiology 03/07/19 17:53 Ordered <TamelaAna - Last Filed: 03/07/19 22:14> - LABORATORY CBC & Chemistry Diagram: 03/07/19 18:50 03/07/19 18:50 - ADDITIONAL ORDERS Additional order review: Laboratory Results 03/07/19 03/07/19 03/07/19 19:55 18:50 18:50 PT with INR INR PTT (Actin FS) VBG pH 7.44 H POC VBG pCO2 43.1 POC VBG pO2 < 49 H VBG HCO3 28.7 VBG O2 Sat (Nichole) 51.6 L VBG Base Excess 4.4 H Sodium Potassium Chloride Carbon Dioxide Anion Gap BUN Creatinine Est GFR (CKD-EPI)AfAm Est GFR (CKD-EPI)NonAf Random Glucose Lactic Acid 1.6 Calcium Magnesium Total Bilirubin AST ALT Alkaline Phosphatase Troponin I B-Natriuretic Peptide Total Protein Albumin Urine Color Dk yellow Urine Appearance Clear Urine pH 6.5 Ur Specific Morton 1.022 Urine Protein 2+ H Urine Glucose (UA) Negative Urine Ketones Trace H Urine Blood 2+ H Urine Nitrite Positive H Urine Bilirubin 2+ H Urine Urobilinogen 4.0 e.u/dl H Ur Leukocyte Esterase Trace Urine WBC (Auto) 1 Urine Casts (Auto) 17 U Epithel Cells (Auto) 1.8 Urine Bacteria (Auto) 0.2 Digoxin 03/07/19 03/07/19 03/07/19 18:50 18:50 18:50 PT with INR 14.10 H INR 1.19 H PTT (Actin FS) 34.0 VBG pH POC VBG pCO2 POC VBG pO2 VBG HCO3 VBG O2 Sat (Nichole) VBG Base Excess Sodium Potassium Chloride Carbon Dioxide Anion Gap BUN Creatinine Est GFR (CKD-EPI)AfAm Est GFR (CKD-EPI)NonAf Random Glucose Lactic Acid Calcium Magnesium 1.6 L Total Bilirubin AST ALT Alkaline Phosphatase Troponin I B-Natriuretic Peptide Total Protein Albumin Urine Color Urine Appearance Urine pH Ur Specific Morton Urine Protein Urine Glucose (UA) Urine Ketones Urine Blood Urine Nitrite Urine Bilirubin Urine Urobilinogen Ur Leukocyte Esterase Urine WBC (Auto) Urine Casts (Auto) U Epithel Cells (Auto) Urine Bacteria (Auto) Digoxin 03/07/19 18:50 PT with INR INR PTT (Actin FS) VBG pH POC VBG pCO2 POC VBG pO2 VBG HCO3 VBG O2 Sat (Nichole) VBG Base Excess Sodium 127 L Potassium 3.8 Chloride 89 L Carbon Dioxide 30 Anion Gap 8 BUN 5.7 L Creatinine 0.5 L Est GFR (CKD-EPI)AfAm 112.07 Est GFR (CKD-EPI)NonAf 96.69 Random Glucose 103 Lactic Acid Calcium 9.3 Magnesium Total Bilirubin 1.2 H AST 127 H ALT 42 Alkaline Phosphatase 209 H Troponin I < 0.02 B-Natriuretic Peptide 1913.0 H Total Protein 7.2 Albumin 2.8 L Urine Color Urine Appearance Urine pH Ur Specific Morton Urine Protein Urine Glucose (UA) Urine Ketones Urine Blood Urine Nitrite Urine Bilirubin Urine Urobilinogen Ur Leukocyte Esterase Urine WBC (Auto) Urine Casts (Auto) U Epithel Cells (Auto) Urine Bacteria (Auto) Digoxin 0.08 L 03/07/19 18:50 RBC 4.91 MCV 85.5 MCHC 34.0 RDW 15.7 H D MPV 7.1 L Neutrophils % 73.9 Lymphocytes % 16.5 D Monocytes % 7.9 D Eosinophils % 0.8 D Basophils % 0.9 D - Medications Given in the ED: ED Medications Discontinued Medications Generic Name Dose Route Start Last Admin Trade Name Roni PRN Reason Stop Dose Admin Acetaminophen 1,000 mg 03/07/19 18:16 03/07/19 19:18 Ofirmev Injection - IVPB 03/07/19 18:17 1,000 mg ONCE ONE Administration Albuterol/Ipratropium 2 amp 03/07/19 18:16 03/07/19 19:17 Duoneb - NEB 03/07/19 18:17 2 amp ONCE ONE Administration Ceftriaxone Sodium 1 gm/ 100 mls @ 200 mls/hr 03/07/19 18:16 03/07/19 19:30 Dextrose IVPB 03/07/19 18:45 200 mls/hr ONCE ONE Administration Protocol Sodium Chloride 1,000 mls @ 1,000 mls/hr 03/07/19 18:16 03/07/19 19:17 Normal Saline - IV 03/07/19 19:15 1,000 mls/hr ASDIR STA Administration Azithromycin 500 mg/ Dextrose 250 mls @ 250 mls/hr 03/07/19 18:17 03/07/19 19 :56 IVPB 03/07/19 19:16 250 mls/hr ONCE ONE Administration Magnesium Sulfate 2 gm 03/07/19 21:29 03/07/19 22:43 Magnesium Sulfate IVPB 03/07/19 21:30 2 gm ONCE ONE Administration Methylprednisolone Sodium Succinate 125 mg 03/07/19 18:16 03/07/19 19:18 Solu-Medrol - IVPUSH 03/07/19 18:17 125 mg ONCE ONE Administration <Rukhsana Ferrari - Last Filed: 03/08/19 07:15> Medical Decision Making - Medical Decision Making 03/07/19 18:33 73yo F with PMH of COPD, CHF?, AAA, Thoracic Aneurysm, HTN, HLD, Dementia, Hypothyroidism, RA, Chronic Pain, presenting to ED with complaints of SOB. Patient states that for the last 2-3 days she has been short of breath especially with exertion. She says she does not have any breathing treatments or inhalers at home. She says that her breathing is fine when she is at rest. She endorses pain with inspiration. Denies chest pain, cough, fevers, chills, abdominal pain, n/v/d, sick contacts, recent travel, leg swelling, calf pain, recent surgeries, orthopnea, lightheadedness, weakness, numbness/tingling. Vitals: febrile, tachycardic, normotensive PE: decreased breath sounds bilaterally ddx includes but not limted to pna, uti, chf, copd exacerbation, pe, acs, endocarditis pt is febrile and having difficulty breathing, could be due to pna/copd exacerbation. less likely two independent processes. pt had CT scan 1y ago showing stable aorta size and incrase to 3.2cm of infrarenal abdominal aorta. 09/04 echo showed normal lvef. ordering sepsis w/u labs including bnp. fluids, ofirmev, duonebs, solumedrol, rocephin, azithromycin. 03/07/19 22:13 labs show bnp 1900. trop normal, no leukocytosis. otherwise wnl. cxr does not show any infiltratse or consolidations. ekg: sinus tachycardia at 129 bpm, GA prolongation, narrow QRS, ST and T wave segments and morphology normal. Nonspecific T wave abnormalities UA shows positive nitrites and blood (which patient has had). no wbc or bacteria. will admit for fever and sob. accepted by hospitalist. <Ana Rapp - Last Filed: 03/07/19 22:14> *DC/Admit/Observation/Transfer - Discharge Dispostion Decision to Admit order: Yes <Ana Rapp - Last Filed: 03/07/19 22:14> - Discharge Dispostion Decision to Admit order: Yes <Rukhsana Ferrari - Last Filed: 03/08/19 07:15> Diagnosis at time of Disposition: SOB (shortness of breath), UTI (urinary tract infection) Fever Qualifiers: Fever type: unspecified Qualified Code(s): R50.9 - Fever, unspecified - Discharge Dispostion Condition at time of disposition: Stable
--- NOTE | 2019-03-07 18:28 | PDOC ---
Attending Attestation - Resident Resident Name: TamelaSaAna - ED Attending Attestation I have performed the following: I have examined & evaluated the patient, The case was reviewed & discussed with the resident, I agree w/resident's findings & plan - HPI HPI: 03/08/19 07:16 73yo F with PMH of COPD, CHF?, AAA, Thoracic Aneurysm, HTN, HLD, Dementia, Hypothyroidism, RA, Chronic Pain, presenting to ED with complaints of SOB x 2-3 days, worse with exertional and taking deep inspiration denies f/c, cp, ap, n/v/d. PMD Dr Fajardo - Physicial Exam PE: 03/07/19 18:23 Agree with the resident's HPI and PE as documented in the electronic medical record. NAD, well appearing, pleasantly demented, EOMI, PERRL, nl conjunctiva, anicteric ; neck supple. no respiratory distress, diminished breath sounds bilaterally, no wheezes or rhonchi, poor inspiratory effort, no murmur, +tachycardic, abdomen soft nontender. Back nontender. REYES x4, no focal neuro deficits. BLE peripheral edema. normal color for ethnicity, WWP. no calf tenderness. - Medical Decision Making 03/07/19 18:26 See HPI for details. Prior notes reviewed, including admissions, discharges and consultations. Vital signs reviewed, tachycardic, +rectal temperature 101.3 Vital Signs Temp Pulse Resp BP Pulse Ox 99.0 F 127 H 22 H 143/65 98 03/07/19 17:32 03/07/19 17:32 03/07/19 17:32 03/07/19 17:32 03/07/19 17:32 DDx SOB: ACS, PE, PTX, CHF, COPD exac, pulmonary edema, pleurisy, pneumonia, viral syndrome. effusion. anemia, electrolyte/metabolic derangements. laboratory results and imaging reviewed, basic labs and lytes no wbc ct however , elevated hyponatremia, on diuretics or could be prerenal/volume depletion. cautious fluids. UA_pos for nitrites, yelena with urine culture and infection, will treat with abx CXR_no focal infiltrate Cardiac panel_neg trop, but elevated bnp could go with CHF history EKG sinus tachycardia at 129 bpm, FL prolongation, narrow QRS, ST and T wave segments and morphology normal. Nonspecific T wave abnormalities rate related ED course -interventions: IV abx, ceftriaxone/azithromycin, IVF and tylenol for fever duonebs and solumedrol for COPD exac. sepsis workup, blood and urine cultures pending. Admit for SOB/fever, possible PNA vs UTI concommitantly.. Discussed results and management plan with pt at bedside, agree with impression, treatment indications, recommendations and plan. s/o to hospitalist regarding admission 03/07/19 18:28 03/07/19 18:28 03/08/19 07:16 03/08/19 07:18 Heart Score/ECG Review #1 ECG reviewed & interpreted by me at: 18:15 General ECG Interpretation: Sinus Rhythm Compared to previous ECG there are: Changes noted 03/07/19 18:28 EKG sinus tachycardia at 129 bpm, FL prolongation, narrow QRS, ST and T wave segments and morphology normal. Nonspecific T wave abnormalities rate related
[2019-03-07] MEDS ORDERED: ACETAMINOPHEN INJECTION 100 ML IVPB ONE (19:05)
[2019-03-07] MEDS ORDERED: CEFTRIAXONE 1 GM/50 ML BAG ONE (19:06)
[2019-03-07] MEDS ORDERED: methylPREDNISolone NA SUCC 125 MG/2 ML VIAL ONE (19:06)
[2019-03-07 19:33] LABS: BASO % 0.9 % (0-2.0); EOS % 0.8 % (0-4.5); HEMOGLOBIN 14.3 GM/dL (10.7-15.3); LYMPH % 16.5 % (8-40); MCH 29.1 pg (25.7-33.7); MEAN CELL VOLUME 85.5 fl (80-96); MEAN PLT VOLUME 7.1 fl (7.5-11.1); MONO % 7.9 % (3.8-10.2); NEUT % 73.9 % (42.8-82.8); PLATELET COUNT 338 K/MM3 (134-434); RBC 4.91 M/mm3 (3.60-5.2); RDW 15.7 % (11.6-15.6); WHITE BLOOD COUNT 9.4 K/mm3 (4.0-10.0)
[2019-03-07 19:34] LABS: VENOUS PC02 43.1 mmHg (38-52); VENOUS PH 7.44 (7.31-7.41)
[2019-03-07] MEDS ORDERED: AZITHROMYCIN IVPB 500 MG/250 ML BAG IVPB ONE (19:43)
[2019-03-07 19:48] LABS: VENOUS PO2 < 49 mmHg (28-48)
[2019-03-07 19:55] LABS: INR 1.19 (0.83-1.09); PROTHROMBIN TIME (PATIENT) 14.1 SEC (9.7-13.0)
[2019-03-07 19:57] LABS: ALBUMIN 2.8 g/dl (3.4-5.0); ALK PHOS 209 U/L (45-117); ANION GAP 8 MMOL/L (8-16); BILIRUBIN,TOTAL 1.2 mg/dL (0.2-1); BLOOD UREA NITROGEN 5.7 mg/dL (7-18); CALCIUM 9.3 mg/dL (8.5-10.1); CHLORIDE 89 mmol/L (98-107); CO2 30 mmol/L (21-32); CREATININE 0.5 mg/dL (0.55-1.3); GLUCOSE,RANDOM 103 mg/dL (74-106); POTASSIUM 3.8 mmol/L (3.5-5.1); SGOT/AST 127 U/L (15-37); SGPT/ALT 42 U/L (13-61); SODIUM 127 mmol/L (136-145); TOT PROT 7.2 g/dl (6.4-8.2)
[2019-03-07 20:23] LABS: EPI CELLS 1.8 /HPF (0-5/HPF); HYALINE CASTS 17 /lpf (0-8); PH,URINE 6.5 (5.0-8.0); URINE APPEARANCE CLEAR; URINE BACTERIA 0.2 /hpf (NEGATIVE); URINE BILIRUBIN 2+ (NEGATIVE); URINE COLOR DK YELLOW; URINE GLUCOSE (UA) NEGATIVE (NEGATIVE); URINE KETONE TRACE (NEGATIVE); URINE LEUK ESTERASE TRACE (NEGATIVE); URINE NITRITE POSITIVE (NEGATIVE); URINE PROTEIN 2+ (NEGATIVE); URINE UROBILINOGEN 4.0 E.U/dl mg/dL (0.2-1.0); URINE WBC 1 /hpf (0-5)
[2019-03-07] MEDS ORDERED: MAGNESIUM SULF 50% (8.12 MEQ/2 ML-1 GM VIAL) IVPB ONE (21:29)
[2019-03-07] MEDS ORDERED: ALBUTEROL SO4 2.5/IPRATROPIUM 0.5 INH SOL 3 ML VIAL.NEB. NEB PRN (21:45)
--- NOTE | 2019-03-07 21:47 | HP ---
Admitting History and Physical - Primary Care Physician PCP: Devin Fajardo - Admission Chief Complaint: SOB History of Present Illness: This is a 73 y/o woman with a PMHx of COPD, ?CHF, AAA, Thoracic Aneurysm, HTN, HLD, Dementia, Hypothyroidism, RA, Chronic Pain. Who presents to the ED with her for SOB. Patient states that for the last 2-3 days she has been short of breath increased with exertion and orthopnea. Patient denies SOB while at rest. She reports pain with inspiration. Patient denies fever, cough, chills , dizziness, CUELLAR, CP, palpitations, AP, N/V/D, constipation, dysuria. 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: Dementia, Peripheral Neuropathy, TIA Cardiovascular: Yes: Aneurysm (3.8cm AAA), HTN (controlled w/ hydralazine), Hyperlipdemia Pulmonary: Yes: Asthma, COPD Gastrointestinal: Yes: Diverticulosis, Gastritis, Hiatal Hernia, Other ( hyperplastic sigmoid polyps removed 12/27) Hepatobiliary: Yes: Cholelithiasis (s/p lap choly), Other (fatty liver) Musculoskeletal: Yes: Other (neuropathy LE) Rheumatology: Yes: Rheumatoid Arthritis, Vasculitis (of the skin) - Past Surgical History Past Surgical History: Yes: Breast Biopsy (b/l, negative), Cholecystectomy (lap choly 05/04), Colonoscopy, Hernia Repair (umbilical hernia repair 05/04), Hysterectomy (noel/bso), Joint Replacement (Lt. 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 History of Recent Travel: No Home Medications - Allergies Allergies/Adverse Reactions: Allergies Allergy/AdvReac Type Severity Reaction Status Date / Time Sulfa (Sulfonamide Allergy Hives Verified 03/09/18 18:06 Antibiotics) dipyridamole AdvReac Mild headache Verified 03/09/18 18:06 [From Persantine] indomethacin [From Indocin] AdvReac Mild headache Verified 03/09/18 18:06 - Home Medications Home Medications: Ambulatory Orders Amlodipine Besylate 5 mg PO DAILY 03/07/19 Digoxin [Lanoxin -] 0.125 mg PO DAILY 03/07/19 Furosemide [Lasix] 20 mg PO DAILY 03/07/19 Levothyroxine [Synthroid -] 0 mcg PO DAILY 03/07/19 Methotrexate Sodium [Methotrexate] 2.5 mg PO ASDIR 03/07/19 Ondansetron [Zofran -] 4 mg PO PRN 03/07/19 Pantoprazole Sodium 40 mg PO DAILY 03/07/19 Prednisone 10 mg PO DAILY 03/07/19 Family Disease History - Family Disease History Family Disease History: Diabetes: Mother (: pna/dm), Son, Other: Father ( : lung cancer), Mother, Brother (lung cancer), Daughter (SLE) Review of Systems - Review of Systems Constitutional: reports: No Symptoms Eyes: reports: No Symptoms HENT: reports: No Symptoms Neck: reports: No Symptoms Cardiovascular: reports: Edema, Shortness of Breath Respiratory: reports: Exercise Intolerance, Orthopnea, SOB, SOB on Exertion Gastrointestinal: reports: No Symptoms Genitourinary: reports: No Symptoms Breasts: reports: No Symptoms Reported Musculoskeletal: reports: No Symptoms Integumentary: reports: No Symptoms Neurological: reports: Confusion Endocrine: reports: No Symptoms Hematology/Lymphatic: reports: No Symptoms Psychiatric: reports: No Symptoms Pain Intensity: 0 Physical Examination Vital Signs: Vital Signs Temperature 98.8 F 03/07/19 21:10 Pulse Rate 116 H 03/07/19 21:10 Respiratory Rate 20 03/07/19 21:10 Blood Pressure 128/56 L 03/07/19 21:10 O2 Sat by Pulse Oximetry (%) 95 03/07/19 21:10 Constitutional: Yes: No Distress, Calm Eyes: Yes: WNL, Conjunctiva Clear, EOM Intact, PERRL HENT: Yes: WNL, Atraumatic, Normocephalic Neck: Yes: WNL, Supple, Trachea Midline Cardiovascular: Yes: Tachycardia, S1, S2 Respiratory: Yes: Diminished, On Nasal O2, SOB on Exertion Gastrointestinal: Yes: Normal Bowel Sounds, Soft ...Rectal Exam: Yes: Deferred Renal/: Yes: WNL Breast(s): Yes: WNL Musculoskeletal: Yes: WNL Extremities: Yes: WNL Edema: Yes Edema: LLE: 1+, RLE: 2+ Peripheral Pulses WNL: Yes Neurological: Yes: Alert, Oriented ( to name, place with forgetfulness), Cran Nerves II-XII Intact ...Motor Strength: WNL Psychiatric: Yes: WNL Labs: CBC, BMP 03/07/19 18:50 03/07/19 18:50 Laboratory Results - last 24 hr 03/07/19 03/07/19 03/07/19 18:50 18:50 18:50 WBC 9.4 RBC 4.91 Hgb 14.3 Hct 42.0 D MCV 85.5 MCH 29.1 MCHC 34.0 RDW 15.7 H D Plt Count 338 D MPV 7.1 L Absolute Neuts (auto) 6.9 Neutrophils % 73.9 Lymphocytes % 16.5 D Monocytes % 7.9 D Eosinophils % 0.8 D Basophils % 0.9 D Nucleated RBC % 0 PT with INR INR PTT (Actin FS) VBG pH POC VBG pCO2 POC VBG pO2 VBG HCO3 VBG O2 Sat (Nichole) VBG Base Excess Sodium 127 L Potassium 3.8 Chloride 89 L Carbon Dioxide 30 Anion Gap 8 BUN 5.7 L Creatinine 0.5 L Est GFR (CKD-EPI)AfAm 112.07 Est GFR (CKD-EPI)NonAf 96.69 Random Glucose 103 Lactic Acid Calcium 9.3 Magnesium 1.6 L Total Bilirubin 1.2 H AST 127 H ALT 42 Alkaline Phosphatase 209 H Troponin I < 0.02 B-Natriuretic Peptide 1913.0 H Total Protein 7.2 Albumin 2.8 L Urine Color Urine Appearance Urine pH Ur Specific [place] Urine Protein Urine Glucose (UA) Urine Ketones Urine Blood Urine Nitrite Urine Bilirubin Urine Urobilinogen Ur Leukocyte Esterase Urine WBC (Auto) Urine Casts (Auto) U Epithel Cells (Auto) Urine Bacteria (Auto) Digoxin 0.08 L 03/07/19 03/07/19 03/07/19 18:50 18:50 18:50 WBC RBC Hgb Hct MCV MCH MCHC RDW Plt Count MPV Absolute Neuts (auto) Neutrophils % Lymphocytes % Monocytes % Eosinophils % Basophils % Nucleated RBC % PT with INR 14.10 H INR 1.19 H PTT (Actin FS) 34.0 VBG pH POC VBG pCO2 POC VBG pO2 VBG HCO3 VBG O2 Sat (Nichole) VBG Base Excess Sodium Potassium Chloride Carbon Dioxide Anion Gap BUN Creatinine Est GFR (CKD-EPI)AfAm Est GFR (CKD-EPI)NonAf Random Glucose Lactic Acid 1.6 Calcium Magnesium Total Bilirubin AST ALT Alkaline Phosphatase Troponin I B-Natriuretic Peptide Total Protein Albumin Urine Color Urine Appearance Urine pH Ur Specific [place] Urine Protein Urine Glucose (UA) Urine Ketones Urine Blood Urine Nitrite Urine Bilirubin Urine Urobilinogen Ur Leukocyte Esterase Urine WBC (Auto) Urine Casts (Auto) U Epithel Cells (Auto) Urine Bacteria (Auto) Digoxin 03/07/19 03/07/19 18:50 19:55 WBC RBC Hgb Hct MCV MCH MCHC RDW Plt Count MPV Absolute Neuts (auto) Neutrophils % Lymphocytes % Monocytes % Eosinophils % Basophils % Nucleated RBC % PT with INR INR PTT (Actin FS) VBG pH 7.44 H POC VBG pCO2 43.1 POC VBG pO2 < 49 H VBG HCO3 28.7 VBG O2 Sat (Nichole) 51.6 L VBG Base Excess 4.4 H Sodium Potassium Chloride Carbon Dioxide Anion Gap BUN Creatinine Est GFR (CKD-EPI)AfAm Est GFR (CKD-EPI)NonAf Random Glucose Lactic Acid Calcium Magnesium Total Bilirubin AST ALT Alkaline Phosphatase Troponin I B-Natriuretic Peptide Total Protein Albumin Urine Color Dk yellow Urine Appearance Clear Urine pH 6.5 Ur Specific [place] 1.022 Urine Protein 2+ H Urine Glucose (UA) Negative Urine Ketones Trace H Urine Blood 2+ H Urine Nitrite Positive H Urine Bilirubin 2+ H Urine Urobilinogen 4.0 e.u/dl H Ur Leukocyte Esterase Trace Urine WBC (Auto) 1 Urine Casts (Auto) 17 U Epithel Cells (Auto) 1.8 Urine Bacteria (Auto) 0.2 Digoxin Intake & Output 03/05/19 03/06/19 03/07/19 03/08/19 23:59 23:59 23:59 23:59 Weight 72.575 kg Current Medications Generic Name Dose Route Start Last Admin Trade Name Freq PRN Reason Stop Dose Admin Albuterol/Ipratropium 1 amp 03/07/19 21:45 Duoneb - NEB Q6H PRN SHORTNESS OF BREATH Amlodipine Besylate 5 mg 03/08/19 10:00 Norvasc - PO DAILY [facility] Digoxin 0.125 mg 03/08/19 10:00 Lanoxin - PO DAILY [facility] Furosemide 20 mg 03/08/19 10:00 Lasix - PO DAILY [facility] Heparin Sodium (Porcine) 5,000 unit 03/07/19 22:00 03/07/19 22:43 Heparin - SQ 5,000 unit BID [facility] Administration Azithromycin 500 mg/ Dextrose 250 mls @ 250 mls/hr 03/08/19 10:00 IVPB DAILY [facility] Ceftriaxone Sodium 1 gm/ 100 mls @ 200 mls/hr 03/08/19 10:00 Dextrose IVPB DAILY [facility] Protocol Levothyroxine Sodium 25 mcg 03/08/19 07:00 Synthroid - PO DAILY@0700 [facility] Methylprednisolone Sodium Succinate 40 mg 03/08/19 03:00 03/08/19 04:23 Solu-Medrol - IVPUSH 40 mg Q8H-IV [facility] Administration Pantoprazole Sodium 40 mg 03/08/19 10:00 Protonix - PO DAILY [facility] Home Medications Medication Instructions Recorded Amlodipine Besylate 5 mg PO DAILY 03/07/19 Digoxin [Lanoxin -] 0.125 mg PO DAILY 03/07/19 Furosemide [Lasix] 20 mg PO DAILY 03/07/19 Levothyroxine [Synthroid -] 0 mcg PO DAILY 03/07/19 Methotrexate Sodium [Methotrexate] 2.5 mg PO ASDIR 03/07/19 Ondansetron [Zofran -] 4 mg PO PRN 03/07/19 Pantoprazole Sodium 40 mg PO DAILY 03/07/19 Prednisone 10 mg PO DAILY 03/07/19 Imaging - Results Chest X-ray: Image Reviewed EKG: Image Reviewed Problem List - Problems (1) COPD exacerbation Code(s): J44.1 - CHRONIC OBSTRUCTIVE PULMONARY DISEASE W (ACUTE) EXACERBATION (2) CHF exacerbation Code(s): I50.9 - HEART FAILURE, UNSPECIFIED (3) Sepsis Code(s): A41.9 - SEPSIS, UNSPECIFIED ORGANISM (4) Tachycardia Code(s): R00.0 - TACHYCARDIA, UNSPECIFIED (5) UTI (urinary tract infection) Code(s): N39.0 - URINARY TRACT INFECTION, SITE NOT SPECIFIED (6) Fever Code(s): R50.9 - FEVER, UNSPECIFIED Qualifiers: Fever type: unspecified Qualified Code(s): R50.9 - Fever, unspecified (7) Dementia Code(s): F03.90 - UNSPECIFIED DEMENTIA WITHOUT BEHAVIORAL DISTURBANCE (8) Hyperlipidemia Code(s): E78.5 - HYPERLIPIDEMIA, UNSPECIFIED (9) Hypertension Code(s): I10 - ESSENTIAL (PRIMARY) HYPERTENSION (10) Rheumatoid arthritis Code(s): M06.9 - RHEUMATOID ARTHRITIS, UNSPECIFIED Assessment/Plan This is a 73 y/o woman with a PMHx of COPD, ?CHF, AAA, Thoracic Aneurysm, HTN, HLD, Dementia, Hypothyroidism, RA, Chronic Pain. Admitted to Telemetry for COPD Exacerbation, CHF Exacerbation, Sepsis, UTI, Hyponatremia for further evaluation of their emergent condition. Plan: Admit Cardiac monitoring Serial Enzymes neg x1, will trend Appreciate Cardiology consult Echo r/o abnormal wall motion Continue Lasix Strict INOs Daily weights Blood Cultures-pending Urine Culture-pending Sepsis Criteria Met: T Max 101.3, P 122, R 22, Spo2 94% UA- +nitrates, +2 blood, trace leukocyte esterase ABX- Ceftriaxone, Azithromycin, will continue, awaiting cultures Chest Xray- image reviewed increased markings, vascular congestion, awaiting official report Continue Duonebs O2 Monitor CBC, BMP Appreciate Pulm consult Continue Solumederol w/taper Continue home meds verified with the spouse (via telephone) Appreciate Radio Station Engineer 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 - New Patient This patient is new to me today: Yes Date on this admission: 03/07/19 - Critical Care Critical Care patient: No
[2019-03-07] MEDS ORDERED: HEPARIN NA (PORCINE) 5,000 UNITS/ML 1ML VIAL ONE (22:21)
[2019-03-07] MEDS ORDERED: MAGNESIUM 1GM/D5W - 2 GM/200 ML IVPB IVPB ONE (22:21)
[2019-03-07] MEDS: HEPARIN NA (PORCINE) 5,000 UNITS/ML 1ML VIAL SQ SCH (22:43)
[2019-03-08] MEDS ORDERED: methylPREDNISolone NA SUCC 40 MG/1 ML VIAL ONE (03:37)
[2019-03-08] MEDS: methylPREDNISolone NA SUCC 40 MG/1 ML VIAL IVPUSH SCH ×3 (04:23→21:33)
[2019-03-08] MEDS ORDERED: METHOTREXATE 2.5 MG TABLET PO SCH (06:30)
[2019-03-08] MEDS ORDERED: LEVOTHYROXINE NA 25 MCG TABLET (FP) ONE (06:46)
[2019-03-08] MEDS: LEVOTHYROXINE NA 25 MCG TABLET (FP) PO SCH (07:05)
[2019-03-08 08:50] LABS: BASO % 0.4 % (0-2.0); HEMATOCRIT 42.5 % (32.4-45.2); HEMOGLOBIN 14.3 GM/dL (10.7-15.3); LYMPH % 10.2 % (8-40); MCH 28.7 pg (25.7-33.7); MCHC 33.7 g/dl (32.0-36.0); MEAN CELL VOLUME 84.9 fl (80-96); MONO % 2.7 % (3.8-10.2); NEUT % 86.7 % (42.8-82.8); PLATELET COUNT 352 K/MM3 (134-434); RDW 15.8 % (11.6-15.6)
[2019-03-08 09:33] LABS: ANION GAP 9 MMOL/L (8-16); BLOOD UREA NITROGEN 6.5 mg/dL (7-18); CALCIUM 9.5 mg/dL (8.5-10.1); CHLORIDE 97 mmol/L (98-107); CO2 31 mmol/L (21-32); CREATININE 0.5 mg/dL (0.55-1.3); GLUCOSE,RANDOM 147 mg/dL (74-106); MAGNESIUM 2.3 mg/dL (1.8-2.4); POTASSIUM 4.1 mmol/L (3.5-5.1); SODIUM 137 mmol/L (136-145)
[2019-03-08] MEDS ORDERED: AZITHROMYCIN IVPB 500 MG/250 ML BAG IVPB SCH (10:00)
[2019-03-08] MEDS: HEPARIN NA (PORCINE) 5,000 UNITS/ML 1ML VIAL SQ SCH ×2 (10:00→21:33)
[2019-03-08] MEDS ORDERED: CEFTRIAXONE 1 GM in DEXTROSE 5%-WATER - 50 ML IVPB SCH (10:00)
[2019-03-08] MEDS: FUROSEMIDE 20 MG TABLET (FP) PO SCH (10:00)
[2019-03-08] MEDS ORDERED: AZITHROMYCIN IVPB 500 MG in DEXTROSE 5%-WATER - 250 ML IVPB SCH (10:00)
[2019-03-08] MEDS: DIGOXIN 0.125 MG TABLET (FP) PO SCH (10:00)
[2019-03-08] MEDS: PANTOPRAZOLE 40 MG TABLET (FP) PO SCH (10:00)
[2019-03-08] MEDS: CEFTRIAXONE 1 GM in DEXTROSE 5%-WATER - 50 ML IVPB SCH (10:00)
[2019-03-08] MEDS ORDERED: AZITHROMYCIN IVPB 500 MG/250 ML BAG IVPB ONE (10:04)
[2019-03-08] MEDS ORDERED: CEFTRIAXONE 1 GM/50 ML BAG ONE ×2 (10:05)
--- NOTE | 2019-03-08 10:16 | EKG ---
Test Reason : Blood Pressure : / mmHG Vent. Rate : 129 BPM Atrial Rate : 129 BPM P-R Int : 216 ms QRS Dur : 078 ms QT Int : 308 ms P-R-T Axes : 000 -10 054 degrees QTc Int : 451 ms SINUS TACHYCARDIA WITH 1ST DEGREE A-V BLOCK WITH PREMATURE ATRIAL COMPLEXES OTHERWISE NORMAL ECG WHEN COMPARED WITH ECG OF 09-MAR-2018 17:52, MS INTERVAL HAS INCREASED CRITERIA FOR SEPTAL INFARCT ARE NO LONGER PRESENT NONSPECIFIC T WAVE ABNORMALITY, IMPROVED IN LATERAL LEADS Confirmed by LILIANE LOJA, CANDIDO ([id number]) on 03/08/2019 10:16:11 AM Referred By: Confirmed By:CANDIDO MOMIN MD
[2019-03-08] MEDS: amLODIPine BESYLATE 5 MG TABLET (FP) PO SCH (10:40)
--- NOTE | 2019-03-08 10:49 | CON.CARD ---
Cardiology Consult (text) - Consultation Consultation Note: Consult Specialty:: cardio - History of Present Illness Chief Complaint: shortness of breath History of Present Illness: 73F h/o dementia, HTN, COPD, pulm HTN, AAA, HTN, HLD p/w short of breath for the last 2-3 days. worse with exertion and deep breaths. No chest pain, palps, dizziness, dyspnea. Febrile in ED, UA c/w UTI started on abx. sees Dr. Vicente for cardio. 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: Dementia, Peripheral Neuropathy, TIA Cardio/Vascular: Yes: Aneurysm (3.8cm AAA), HTN (controlled w/ hydralazine), Hyperlipdemia Pulmonary: Yes: Asthma, COPD Gastrointestinal: Yes: Diverticulosis, Hiatal Hernia, Other (hyperplastic sigmoid polyps removed 12/27) Hepatobiliary: Yes: Cholelithiasis, Other (fatty liver) ...: No Musculoskeletal: Yes: Other (neuropathy LE) Rheumatology: Yes: Rheumatoid Arthritis, Vasculitis (of the skin) - Past Surgical History Past Surgical History: Yes: Breast Biopsy (b/l, negative), Cholecystectomy (lap choly 05/04), Colonoscopy, Hernia Repair (umbilical hernia repair 05/04), Hysterectomy (noel/bso), Joint Replacement (Lt. THR w/ revision), Upper Endoscopy - Alcohol/Substance Use Hx Alcohol Use: No - Smoking History Smoking history: Unknown if ever smoked Have you smoked in the past 12 months: No Aproximately how many cigarettes per day: 20 - Social History Usual Living Arrangement: With Spouse ADL: Family Assistance History of Recent Travel: No Home Medications - Allergies Allergies/Adverse Reactions: Allergies Allergy/AdvReac Type Severity Reaction Status Date / Time Sulfa (Sulfonamide Allergy Hives Verified 03/09/18 18:06 Antibiotics) dipyridamole AdvReac Mild headache Verified 03/09/18 18:06 [From Persantine] indomethacin [From Indocin] AdvReac Mild headache Verified 03/09/18 18:06 Ambulatory Orders Amlodipine Besylate 5 mg PO DAILY 03/07/19 Digoxin [Lanoxin -] 0.125 mg PO DAILY 03/07/19 Furosemide [Lasix] 20 mg PO DAILY 03/07/19 Levothyroxine [Synthroid -] 0 mcg PO DAILY 03/07/19 Methotrexate Sodium [Methotrexate] 2.5 mg PO ASDIR 03/07/19 Ondansetron [Zofran -] 4 mg PO PRN 03/07/19 Pantoprazole Sodium 40 mg PO DAILY 03/07/19 Prednisone 10 mg PO DAILY 03/07/19 Family Disease History - Family Disease History Family Disease History: Diabetes: Mother (: pna/dm), Son, Other: Father ( : lung cancer), Mother, Brother (lung cancer), Daughter (SLE) Review of Systems - Review of Systems Constitutional: denies: Chills, Fever Eyes: denies: Eye Pain HENT: denies: Nasal Congestion Neck: denies: Stiffness Cardiovascular: denies: Palpitations Respiratory: denies: Orthopnea, PND Gastrointestinal: denies: Diarrhea, Rectal Bleeding Genitourinary: denies: Burning, Hematuria Musculoskeletal: denies: Muscle Pain Integumentary: denies: Rash Neurological: denies: Numbness, Seizure, Syncope Endocrine: denies: Excessive Sweating Hematology/Lymphatic: denies: Excessive Bleeding Vital Signs Period Temp Pulse Resp BP Sys/Barillas Pulse Ox Last 24 Hr 96.8 F-101.3 F 105-127 16-22 128-143/56-86 92-100 Constitutional: Yes: Well Nourished, No Distress Eyes: No: Sclera Icterus HENT: No: Nasal Congestion Neck: No: Decreased ROM Respiratory: Yes: CTA Bilaterally. No: Accessory Muscle Use, Rales, Tachypnea, Wheezes Gastrointestinal: Yes: Normal Bowel Sounds. No: Distention, Hepatomegaly, Palpable Mass, Tenderness Cardiovascular: Yes: Regular Rate and Rhythm JVD: No Carotid Bruit: No PMI: Non-Displaced Heart Sounds: Yes: S1, S2. No: Gallop Murmur: No: Systolic Murmur, Diastolic Murmur Musculoskeletal: Yes: Other (No kyphosis) Extremities: No: Cold Edema: No Peripheral Pulses: 2+ Left Carotid, 2+ Right Carotid, 2+ Left Doralis Pedis, 2+ Right Dorsalis Pedis Integumentary: No: Jaundice Neurological: Yes: Alert. No: Seizure Psychiatric: No: Agitated Laboratory Last Values WBC 8.0 K/mm3 (4.0-10.0) 03/08/19 08:26 RBC 5.00 M/mm3 (3.60-5.2) 03/08/19 08:26 Hgb 14.3 GM/dL (10.7-15.3) 03/08/19 08:26 Hct 42.5 % (32.4-45.2) 03/08/19 08:26 MCV 84.9 fl (80-96) 03/08/19 08:26 MCH 28.7 pg (25.7-33.7) 03/08/19 08: MCHC 33.7 g/dl (32.0-36.0) 03/08/19 08:26 RDW 15.8 % (11.6-15.6) H 03/08/19 08:26 Plt Count 352 K/MM3 (134-434) 03/08/19 08:26 MPV 7.0 fl (7.5-11.1) L 03/08/19 08:26 Absolute Neuts (auto) 6.9 K/mm3 (1.5-8.0) 03/08/19 08:26 Neutrophils % 86.7 % (42.8-82.8) H 03/08/19 08:26 Lymphocytes % 10.2 % (8-40) D 03/08/19 08:26 Monocytes % 2.7 % (3.8-10.2) L 03/08/19 08:26 Eosinophils % 0.0 % (0-4.5) D 03/08/19 08:26 Basophils % 0.4 % (0-2.0) 03/08/19 08: Nucleated RBC % 0 % (0-0) 03/08/19 08:26 PT with INR 14.10 SEC (9.7-13.0) H 03/07/19 18:50 INR 1.19 (0.83-1.09) H 03/07/19 18:50 PTT (Actin FS) 34.0 SECONDS (25.2-36.5) 03/07/19 18:50 VBG pH 7.44 (7.31-7.41) H 03/07/19 18:50 POC VBG pCO2 43.1 mmHg (38-52) 03/07/19 18:50 POC VBG pO2 < 49 mmHg (28-48) H 03/07/19 18:50 VBG HCO3 28.7 mmol/L (23-29) 03/07/19 18:50 VBG O2 Sat (Nichole) 51.6 % (70-80) L 03/07/19 18:50 VBG Base Excess 4.4 meq/l (-2-2) H 03/07/19 18:50 Sodium 137 mmol/L (136-145) 03/08/19 08:26 Potassium 4.1 mmol/L (3.5-5.1) 03/08/19 08:26 Chloride 97 mmol/L (98-107) L 03/08/19 08:26 Carbon Dioxide 31 mmol/L (21-32) 03/08/19 08:26 Anion Gap 9 MMOL/L (8-16) 03/08/19 08:26 BUN 6.5 mg/dL (7-18) L 03/08/19 08:26 Creatinine 0.5 mg/dL (0.55-1.3) L 03/08/19 08:26 Est GFR (CKD-EPI)AfAm 112.07 03/08/19 08:26 Est GFR (CKD-EPI)NonAf 96.69 03/08/19 08:26 Random Glucose 147 mg/dL (74-106) H 03/08/19 08:26 Lactic Acid 1.6 mmol/L (0.4-2.0) 03/07/19 18:50 Calcium 9.5 mg/dL (8.5-10.1) 03/08/19 08:26 Magnesium 2.3 mg/dL (1.8-2.4) 03/08/19 08:26 Total Bilirubin 1.2 mg/dL (0.2-1) H 03/07/19 18:50 AST 127 U/L (15-37) H 03/07/19 18:50 ALT 42 U/L (13-61) 03/07/19 18:50 Alkaline Phosphatase 209 U/L (45-117) H 03/07/19 18:50 Troponin I < 0.02 ng/ml (0.00-0.05) 03/08/19 08:26 B-Natriuretic Peptide 1913.0 pg/ml (5-125) H 03/07/19 18:50 Total Protein 7.2 g/dl (6.4-8.2) 03/07/19 18:50 Albumin 2.8 g/dl (3.4-5.0) L 03/07/19 18:50 TSH 0.54 uIU/ml (0.358-3.74) 03/08/19 08:26 Urine Color Dk yellow 03/07/19 19:55 Urine Appearance Clear 03/07/19 19:55 Urine pH 6.5 (5.0-8.0) 03/07/19 19:55 Ur Specific [place] 1.022 (1.010-1.035) 03/07/19 19:55 Urine Protein 2+ (NEGATIVE) H 03/07/19 19:55 Urine Glucose (UA) Negative (NEGATIVE) 03/07/19 19:55 Urine Ketones Trace (NEGATIVE) H 03/07/19 19:55 Urine Blood 2+ (NEGATIVE) H 03/07/19 19:55 Urine Nitrite Positive (NEGATIVE) H 03/07/19 19:55 Urine Bilirubin 2+ (NEGATIVE) H 03/07/19 19:55 Urine Urobilinogen 4.0 e.u/dl mg/dL (0.2-1.0) H 03/07/19 19:55 Ur Leukocyte Esterase Trace (NEGATIVE) 03/07/19 19:55 Urine WBC (Auto) 1 /hpf (0-5) 03/07/19 19:55 Urine Casts (Auto) 17 /lpf (0-8) 03/07/19 19:55 U Epithel Cells (Auto) 1.8 /HPF (0-5/HPF) 03/07/19 19:55 Urine Bacteria (Auto) 0.2 /hpf (NEGATIVE) 03/07/19 19:55 Digoxin 0.08 ng/ml (0.8-2.0) L 03/07/19 18:50 Assessment/Plan echo 09/04: nl LV/EF, no RWMA. nl RV. nl LA. mild AI. no RVSP. 4 cm ao root, 4.1 cm ascending. mibi 04/2013: mod septal ischemia per report tele: NSR with frequent runs of MAT with HRs 120s-140s CXR: emphysematous changes, no congestion shortness of breath, COPD - pulm consulted, treating for COPD exacerbation - BNP elevated however CXR no congestion, appears euvolemic - cont home PO lasix - trop neg x 2, EKG no ischemic changes - unlikely ACS fever, UTI - manage per primary multifocal atrial tach (MAT): -sec to severe COPD - cont digoxin - monitor on tele htn: - cont home meds hld: -cont home statin possible cad: -prior mibi 2013 reported low-risk area of (septal) ischemia and has been managed medically with no angina sx's -pt with extensive atherosclerotic aorta vascular disease -normal lvef -cont home statin, bb, randall. -ASA held in recent past when developed NSAID-related PUD (dx'd on EGD) WHO 2 pulm HTN: -marked PA dilation noted on prior CTA chest -signif desats to 80s% on 6MWT--declined O2 due to refusal to stop smoking thoracic and abdominal aorta aneurysms: -known ascending aorta aneurysm 4.8 cm, and descending aorta aneurysm 4.0 cm, both unchanged on 01/02 study -small infrarenal AAA 3.2cm, increased vs 2.7 cm in 2016--pt has refused (any) f /u MD office visits or imaging since then--will repeat surveillance imaging while she is here -would be high risk (maybe not prohibitive) for open repair in any case ( ascending aorta not amenable to endovascular approach) + cigs: -repeatedly counselled cessation benefits and available modalities as outpt--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
--- NOTE | 2019-03-08 11:09 | PN ---
Progress Note, Physician Chief Complaint: SOB Acute on chronic CHF COPD exacerbation - Current Medication List Current Medications: Active Medications Albuterol/Ipratropium (Duoneb -) 1 amp NEB Q6H PRN PRN Reason: SHORTNESS OF BREATH Amlodipine Besylate (Norvasc -) 5 mg PO DAILY [facility] Last Admin: 03/08/19 10:40 Dose: 5 mg Digoxin (Lanoxin -) 0.125 mg PO DAILY [facility] Last Admin: 03/08/19 10:00 Dose: 0.125 mg Furosemide (Lasix -) 20 mg PO DAILY [facility] Last Admin: 03/08/19 10:00 Dose: 20 mg Heparin Sodium (Porcine) (Heparin -) 5,000 unit SQ BID [facility] Last Admin: 03/08/19 10:00 Dose: 5,000 unit Azithromycin 500 mg/ Dextrose 250 mls @ 250 mls/hr IVPB DAILY [facility] Last Admin: 03/08/19 10:00 Dose: 250 mls/hr Ceftriaxone Sodium 1 gm/ (Dextrose) 50 mls @ 100 mls/hr IVPB DAILY [facility]; Protocol Last Admin: 03/08/19 10:00 Dose: 100 mls/hr Levothyroxine Sodium (Synthroid -) 25 mcg PO DAILY@0700 [facility] Last Admin: 03/08/19 07:05 Dose: 25 mcg Methotrexate (Mexate -) 20 mg PO Mo@1000 [facility] Methylprednisolone Sodium Succinate (Solu-Medrol -) 40 mg IVPUSH Q8H-IV [facility] Last Admin: 03/08/19 10:00 Dose: 40 mg Pantoprazole Sodium (Protonix -) 40 mg PO DAILY [facility] Last Admin: 03/08/19 10:00 Dose: 40 mg - Objective Vital Signs: Vital Signs Temperature 96.8 F L 03/08/19 04:25 Pulse Rate 105 H 03/08/19 07:04 Respiratory Rate 17 03/08/19 07:04 Blood Pressure 133/75 03/08/19 07:04 O2 Sat by Pulse Oximetry (%) 94 L 03/08/19 07:04 Constitutional: Yes: Well Nourished, No Distress, Calm Cardiovascular: Yes: Regular Rate and Rhythm Respiratory: Yes: Regular Gastrointestinal: Yes: WNL Genitourinary: Yes: WNL Musculoskeletal: Yes: Muscle Weakness Extremities: Yes: WNL Edema: Yes Edema: LLE: 2+, RLE: 2+ Peripheral Pulses WNL: Yes Neurological: Yes: Alert, Pre-Existing Deficit Psychiatric: Yes: Alert Labs: CBC, BMP 03/08/19 08:26 03/08/19 08:26 INR, PTT INR 1.19 (0.83-1.09) H 03/07/19 18:50 Problem List - Problems (1) CHF exacerbation Assessment/Plan: -Seen by cardiology -Euvolemic -Continue home lasix -Low sodium diet -echo 09/04: nl LV/EF, no RWMA. nl RV. nl LA. mild AI. no RVSP. 4 cm ao root, 4.1 cm ascending. -Repeat Echo -CXR reviewed Code(s): I50.9 - HEART FAILURE, UNSPECIFIED (2) Dementia Code(s): F03.90 - UNSPECIFIED DEMENTIA WITHOUT BEHAVIORAL DISTURBANCE (3) SOB (shortness of breath) Assessment/Plan: -Cardiology consult -Pulmonary consult -Nasal O2 -Bronchodilators -CXR emphysema -medrol tapering dose Code(s): R06.02 - SHORTNESS OF BREATH (4) COPD exacerbation Assessment/Plan: -Pulmonary consult -Nasal O2 -Bronchodilators -CXR emphysema -medrol tapering dose Code(s): J44.1 - CHRONIC OBSTRUCTIVE PULMONARY DISEASE W (ACUTE) EXACERBATION (5) Rheumatoid arthritis Assessment/Plan: -resume methotrexate Code(s): M06.9 - RHEUMATOID ARTHRITIS, UNSPECIFIED (6) UTI (urinary tract infection) Assessment/Plan: -UA+ nitrites -UC pending -Started on IV abx -ID consult -febrile upon admission, afebrile now Code(s): N39.0 - URINARY TRACT INFECTION, SITE NOT SPECIFIED (7) Sepsis Code(s): A41.9 - SEPSIS, UNSPECIFIED ORGANISM
--- NOTE | 2019-03-08 12:38 | ECHO ---
Name: ZAYRA CORTEZ Exam:Adult Echocardiogram Study Date: 03/08/2019 09:22 AM Age: 73 yrs Reason For Study: CHF Height: 66 in Weight: 160 lb BSA: 1.8 m2 MMode/2D Measurements & Calculations IVSd: 1.1 cm Ao root diam: 3.1 cm LVIDd: 3.9 cm LA dimension: 2.7 cm LVIDs: 3.3 cm LVPWd: 1.3 cm LVPWs: 1.8 cm EDV(Teich): 65.2 ml ESV(Teich): 44.7 ml LVOT diam: 2.3 cm LVLd ap4: 7.1 cm EDV(MOD-sp4): 70.0 ml LVLs ap4: 6.0 cm ESV(MOD-sp4): 34.0 ml SV(MOD-sp4): 36.0 ml Doppler Measurements & Calculations MV E max adrien: 6.7 cm/sec Ao V2 max: 128.2 cm/sec Ao max P.6 mmHg Ao V2 mean: 82.2 cm/sec Ao mean P.4 mmHg Ao V2 VTI: 21.5 cm JESS(I,D): 3.1 cm2 AI P1/2t: 192.0 msec JESS(V,D): 2.9 cm2 AI max adrien: 416.3 cm/sec LV V1 max P.1 mmHg AI max P.5 mmHg LV V1 mean P.6 mmHg AI dec slope: 635.2 cm/sec2 LV V1 max: 87.6 cm/sec LV V1 mean: 56.4 cm/sec LV V1 VTI: 15.4 cm SV(LVOT): 66.0 ml PA V2 max: 72.1 cm/sec PA max P.1 mmHg Med Peak E' Adrien: 3.2 cm/sec Med E/e': 2.1 Lat Peak E' Adrien: 4.5 cm/sec Lat E/e': 1.5 Procedure A two-dimensional transthoracic echocardiogram with color flow and Doppler was performed. The study w as technically difficult with many images being suboptimal in quality. Left Ventricle The left ventricle is grossly normal size. The left ventricle is not well visualized. Left ventricula r systolic function is severely reduced. There is severe global hypokinesis of the left ventricle. Right Ventricle The right ventricle is not well visualized. Atria Normal left and right atrial size and function. Mitral Valve The mitral valve is not well visualized. There is no mitral valve stenosis. There is mild mitral regurgitation. Tricuspid Valve The tricuspid valve is not well visualized. There is no tricuspid stenosis. There was insufficient TR detected to calculate RV systolic pressure. Aortic Valve The aortic valve is not well visualized. There is mild to moderate aortic valve thickening. There is mild to moderate aortic sclerosis.;. No hemodynamically significant valvular aortic stenosis. Moderate aortic regurgitation. Pulmonic Valve The pulmonic valve is not well visualized. There is no pulmonic valvular stenosis. Mild pulmonic valv ular regurgitation. Great Vessels The aortic root is normal size. Pericardium/Pleura There is no pericardial effusion. Interpretation Summary The left ventricle is grossly normal size. Left ventricular systolic function is severely reduced. There is severe global hypokinesis of the left ventricle. The left ventricle is not well visualized. The study was technically difficult with many images being suboptimal in quality. There is mild to moderate aortic sclerosis.; There is mild to moderate aortic valve thickening. The aortic valve is not well visualized. The right ventricle is not well visualized. There is mild mitral regurgitation. There was insufficient TR detected to calculate RV systolic pressure. Moderate aortic regurgitation. MD Edvin Greer 03/08/2019 12:38 PM
--- NOTE | 2019-03-08 15:09 | PN ---
Progress Note (short form) - Note Progress Note: PULMONARY CONSULTATION DICTATED 03/08/19 IMP DYSPNEA COPD EXACERBATION CHF SEVERE LV SYSTOLIC DYSFUNCTION PULMONARY HTN THORACIC AORTIC ANEURYSM AAA DEMENTIA HLD HTN RA PLAN INHALED BRONCHODILATORS O2 MEDROL LASIX F/U CHEST X-RAYS DAILY WT DR LOVELACE Problem List - Problems (1) Dementia Code(s): F03.90 - UNSPECIFIED DEMENTIA WITHOUT BEHAVIORAL DISTURBANCE (2) SOB (shortness of breath) Code(s): R06.02 - SHORTNESS OF BREATH (3) CAD (coronary artery disease) Code(s): I25.10 - ATHSCL HEART DISEASE OF [place] CORONARY ARTERY W/O ANG PCTRS (4) COPD exacerbation Code(s): J44.1 - CHRONIC OBSTRUCTIVE PULMONARY DISEASE W (ACUTE) EXACERBATION (5) Cough Code(s): R05 - COUGH (6) Electrolyte abnormality Code(s): E87.8 - OTH DISORDERS OF ELECTROLYTE AND FLUID BALANCE, NEC (7) Hyperlipidemia Code(s): E78.5 - HYPERLIPIDEMIA, UNSPECIFIED (8) Hypertension Code(s): I10 - ESSENTIAL (PRIMARY) HYPERTENSION (9) Rheumatoid arthritis Code(s): M06.9 - RHEUMATOID ARTHRITIS, UNSPECIFIED
[2019-03-08 17:07] VITALS: BMI 21.9
--- NOTE | 2019-03-08 17:41 | CONS ---
DATE OF CONSULTATION: 03/08/2019 REFERRING PHYSICIAN: Devin Fajardo MD HISTORY: Patient is a 73-year-old white female with past medical history of dementia, hypertension, hyperlipidemia, thoracic aortic aneurysm, abdominal aortic aneurysm, congestive heart failure, COPD, hypothyroidism, rheumatoid arthritis, chronic pain, longstanding history of tobacco use quit approximately 1 year ago. Admitted to [facility] with complaint of a 2- to 3-day history of increasing shortness of breath, dyspnea on exertion, and orthopnea. Patient apparently denied any fevers, chills. Had an occasional cough nonproductive. Denies any chest pains or palpitations. She also complains of some chest pain with inspiration. There was no fever, cough, hemoptysis. On admission, she was evaluated by Cardiology and felt to have possible COPD exacerbation. She underwent an echocardiogram, which revealed severe LV systolic dysfunction. She was started on inhaled bronchodilators and steroids and started on p.o. Lasix. PAST MEDICAL HISTORY: Again includes COPD, CHF, AAA, thoracic aortic aneurysm, hypertension, hyperlipidemia, dementia, hypothyroidism, rheumatoid, chronic pain, peripheral neuropathy, TIA, hiatal hernia, vasculitis. REVIEW OF SYSTEMS: Positive orthopnea, positive dyspnea. Positive chest pain. No fever, no chills, no hemoptysis, no abdominal pain. Positive lower extremity edema. CURRENT MEDICATIONS: Include Solu-Medrol 40 every 8, Zithromax, ceftriaxone, heparin, methotrexate, DuoNeb, Norvasc, Lasix, Protonix, and Synthroid. PHYSICAL EXAMINATION: General: Patient is an elderly white female well developed, awake, alert in no acute distress. Vital Signs: She is afebrile. Heart rate is 102, respiratory rate is 18, O2 saturation is 96% on room air, and her blood pressure is 132/74. HEENT: Normocephalic, atraumatic. Neck: Supple. Heart: Regular S1, S2. Chest: Diffuse scattered bilateral wheezes. Abdomen: Soft. Bowel sounds are positive. Extremities: Bilateral lower extremity edema. LABORATORIES: WBC is 8, hemoglobin 14.3, hematocrit 42.5 with a platelet count of 352,000. Venous blood gas 7.44, PCO2 of 43, PO2 of less than 49, bicarbonate of 28, and a saturation of 51. BUN 6, creatinine 0.5. BNP is 1913. Chest x-ray, no infiltrates and no effusions. IMPRESSION: 1. Dyspnea likely secondary to chronic obstructive pulmonary disease exacerbation. 2. Congestive heart failure. 3. Severe left ventricular systolic dysfunction. 4. Pulmonary hypertension. 5. Thoracic aortic aneurysm. 6. Abdominal aortic aneurysm. 7. Dementia. 8. Hyperlipidemia. 9. Hypertension. 10. Rheumatoid arthritis. PLAN: Inhaled bronchodilators. Supplemental O2. Medrol, Lasix. Follow up chest x-rays. Daily weights. CYNTHIA LOVELACE M.D. [id number]
[2019-03-08] MEDS ORDERED: VANCOMYCIN 1 GRAM (PRE-DOCKED) 1,000 MG/250 ML BAG IVPB ONE (18:32)
[2019-03-08] MEDS: ALBUTEROL SO4 2.5/IPRATROPIUM 0.5 INH SOL 3 ML VIAL.NEB. NEB SCH (20:54)
[2019-03-08] MEDS: MIRTAZAPINE 15 MG TABLET (FP) PO SCH (21:33)
[2019-03-09] MEDS: methylPREDNISolone NA SUCC 40 MG/1 ML VIAL IVPUSH SCH ×4 (03:45→21:48)
[2019-03-09] MEDS: LEVOTHYROXINE NA 25 MCG TABLET (FP) PO SCH (06:06)
[2019-03-09] MEDS: ALBUTEROL SO4 2.5/IPRATROPIUM 0.5 INH SOL 3 ML VIAL.NEB. NEB SCH ×4 (07:30→19:52)
[2019-03-09 07:32] LABS: BASO % 0.2 % (0-2.0); HEMOGLOBIN 13.2 GM/dL (10.7-15.3); LYMPH % 7.3 % (8-40); MCH 28.8 pg (25.7-33.7); MCHC 33.7 g/dl (32.0-36.0); MEAN CELL VOLUME 85.4 fl (80-96); MEAN PLT VOLUME 7.3 fl (7.5-11.1); MONO % 3.2 % (3.8-10.2); NEUT % 89.3 % (42.8-82.8); PLATELET COUNT 401 K/MM3 (134-434); RBC 4.57 M/mm3 (3.60-5.2); RDW 15.7 % (11.6-15.6)
[2019-03-09 07:35] LABS: ALBUMIN 2.4 g/dl (3.4-5.0); BILIRUBIN,TOTAL 0.3 mg/dL (0.2-1); BLOOD UREA NITROGEN 13.4 mg/dL (7-18); CALCIUM 9.4 mg/dL (8.5-10.1); CREATININE 0.6 mg/dL (0.55-1.3); POTASSIUM 3.6 mmol/L (3.5-5.1); TOT PROT 6.4 g/dl (6.4-8.2)
[2019-03-09] MEDS ORDERED: DEXTROSE 5%-WATER - 50 ML IVPB ONE (09:05)
[2019-03-09] MEDS ORDERED: cefTRIAXone SODIUM 1 GM VIAL ONE (09:05)
[2019-03-09] MEDS: ENALAPRIL MALEATE 10 MG TABLET (FP) PO SCH (09:26)
[2019-03-09] MEDS: FUROSEMIDE 20 MG TABLET (FP) PO SCH (09:27)
[2019-03-09] MEDS: amLODIPine BESYLATE 5 MG TABLET (FP) PO SCH (09:27)
[2019-03-09] MEDS: CEFTRIAXONE 1 GM in DEXTROSE 5%-WATER - 50 ML IVPB SCH (09:27)
[2019-03-09] MEDS: PANTOPRAZOLE 40 MG TABLET (FP) PO SCH (09:27)
[2019-03-09] MEDS: DIGOXIN 0.125 MG TABLET (FP) PO SCH (09:27)
[2019-03-09] MEDS: AZITHROMYCIN IVPB 500 MG/250 ML BAG IVPB SCH (09:28)
[2019-03-09] MEDS: HEPARIN NA (PORCINE) 5,000 UNITS/ML 1ML VIAL SQ SCH ×2 (09:28→21:48)
--- NOTE | 2019-03-09 11:48 | PN ---
Progress Note (short form) - Note Progress Note: ID CONSULT DICTATED ACUTE EXACERBATION COPD FEVER R/O PEUMONIA +BC ? SIGNIFICANCE AWAIT C/S CONTINUE ZITHROMAX/ CEFTRIAXONE VANCOMYCIN X 1 DOSE
[2019-03-09] MEDS ORDERED: VANCOMYCIN 1 GRAM (PRE-DOCKED) 1,000 MG/250 ML BAG IVPB ONE (12:15)
--- NOTE | 2019-03-09 13:11 | CONS ---
INFECTIOUS DISEASE CONSULTATION DATE OF CONSULTATION: DATE OF DICTATION: 03/09/2019 The patient is a 73-year-old female, history of COPD, evaluated for positive blood culture. The patient was admitted to the hospital on March 07, 2019, with a 2-3 day history of worsening shortness of breath. She was diagnosed with acute exacerbation of COPD and possible decompensated congestive heart failure. Her hospital course was complicated by fever to 101.3. She was empirically treated with Zithromax and ceftriaxone for possible pneumonia. Chest x-ray was negative for acute infiltrate. At the present time, she is awake and alert and has no focal complaint. Blood cultures are now positive for gram-positive cocci in clusters in 1 bottle. She denies any chest pain. No complaints of shortness of breath. She appears comfortable on room air. She denies any cough or sputum production. No complaints of dysuria or hematuria. No infected skin lesions. PAST MEDICAL HISTORY: Positive for dementia, COPD, hypothyroidism, rheumatoid arthritis on methotrexate. No history of anti-TNF agents. ALLERGIES: SULFA, INDOMETHACIN, and DIPYRIDAMOLE. SOCIAL HISTORY: Positive for active tobacco use. Lives at home. Last hospitalization 1 year ago. SYSTEMS REVIEW: Neurologic: No loss of consciousness, seizure activity, focal weakness. Cardiac: Negative chest pain or palpitations. Respiratory: As per HPI. Gastrointestinal: Negative vomiting or diarrhea. Genitourinary: Negative for urinary tract infection. LABORATORY DATA: White count 13.0, hematocrit 39.0, platelet count 401. Creatinine 0.6. Urinalysis: White cells 1. Blood culture is gram-positive cocci in clusters in 1 bottle. Chest x-ray negative for acute infiltrate. PHYSICAL EXAMINATION: General: She is awake and alert. She is not acutely toxic appearing. Vital Signs: T-max 101.3; blood pressure 132/67; pulse 90, regular; respirations 20 per minute. HEENT: Sclerae anicteric. Heart: Sounds S1, S2. No murmur. Lungs: Clear. No rhonchi, rales, or wheezing. Abdomen: Soft and nontender. Extremities: Negative for edema. No foot ulcers noted. IMPRESSION: 1. Acute exacerbation of chronic obstructive pulmonary disease. 2. Fever, rule out sepsis. 3. Positive blood culture, unclear significance. Repeat blood cultures have been obtained. Await identification of blood isolate. Echocardiogram negative for vegetations. Continue ceftriaxone and Zithromax for possible pulmonary infection, vancomycin 1 g for coverage of blood isolate pending culture. Will follow. Thank you for the kind referral. GERARDO GRANADOS M.D. [id number]
--- NOTE | 2019-03-09 15:06 | PN ---
Progress Note, Physician Chief Complaint: patient seen and examined - Current Medication List Current Medications: Active Medications Albuterol/Ipratropium (Duoneb -) 1 amp NEB Q6H PRN PRN Reason: SHORTNESS OF BREATH Albuterol/Ipratropium (Duoneb -) 1 amp NEB RQID [facility] Last Admin: 03/09/19 11:50 Dose: 1 amp Amlodipine Besylate (Norvasc -) 5 mg PO DAILY [facility] Last Admin: 03/09/19 09:27 Dose: 5 mg Digoxin (Lanoxin -) 0.125 mg PO DAILY [facility] Last Admin: 03/09/19 09:27 Dose: 0.125 mg Enalapril Maleate (Vasotec -) 20 mg PO DAILY [facility] Last Admin: 03/09/19 09:26 Dose: 20 mg Furosemide (Lasix -) 20 mg PO DAILY [facility] Last Admin: 03/09/19 09:27 Dose: 20 mg Heparin Sodium (Porcine) (Heparin -) 5,000 unit SQ BID [facility] Last Admin: 03/09/19 09:28 Dose: 5,000 unit Ceftriaxone Sodium 1 gm/ (Dextrose) 50 mls @ 100 mls/hr IVPB DAILY [facility]; Protocol Last Admin: 03/09/19 09:27 Dose: 100 mls/hr Azithromycin (Zithromax 500mg Ivpb (Pre-Docked)) 500 mg in 250 mls @ 250 mls/ hr IVPB DAILY [facility] Last Admin: 03/09/19 09:28 Dose: 250 mls/hr Levothyroxine Sodium (Synthroid -) 25 mcg PO DAILY@0700 [facility] Last Admin: 03/09/19 06:06 Dose: 25 mcg Methotrexate (Mexate -) 20 mg PO Mo@1000 [facility] Methylprednisolone Sodium Succinate (Solu-Medrol -) 40 mg IVPUSH Q6H-IV [facility] Last Admin: 03/09/19 14:34 Dose: 40 mg Metoprolol Succinate (Toprol Xl -) 50 mg PO DAILY [facility] Last Admin: 03/09/19 09:27 Dose: 50 mg Mirtazapine (Remeron -) 15 mg PO HS [facility] Last Admin: 03/08/19 21:33 Dose: 15 mg Pantoprazole Sodium (Protonix -) 40 mg PO DAILY [facility] Last Admin: 03/09/19 09:27 Dose: 40 mg - Objective Vital Signs: Vital Signs Temperature 97.6 F 03/09/19 14:44 Pulse Rate 73 03/09/19 14:44 Respiratory Rate 20 03/09/19 14:44 Blood Pressure 139/75 03/09/19 14:44 O2 Sat by Pulse Oximetry (%) 97 03/09/19 09:00 Constitutional: Yes: Calm, Thin Cardiovascular: Yes: Regular Rate and Rhythm, S1, S2 Respiratory: Yes: Diminished Gastrointestinal: Yes: Normal Bowel Sounds, Soft Neurological: Yes: Alert Labs: CBC, BMP 03/09/19 06:15 03/09/19 06:15 INR, PTT INR 1.19 (0.83-1.09) H 03/07/19 18:50 Problem List - Problems (1) Fever Assessment/Plan: iv abx blood cultures pending Code(s): R50.9 - FEVER, UNSPECIFIED Qualifiers: Fever type: unspecified Qualified Code(s): R50.9 - Fever, unspecified (2) SOB (shortness of breath) Assessment/Plan: iv medrol inhalers Code(s): R06.02 - SHORTNESS OF BREATH (3) Hypothyroid Assessment/Plan: synthroid tsh normal Code(s): E03.9 - HYPOTHYROIDISM, UNSPECIFIED
--- NOTE | 2019-03-09 15:31 | PN ---
Progress Note (short form) - Note Progress Note: no chest pain, palps, dizziness. dyspnea improving. patient seen with her today, has not been taking most of her meds every day, he thinks maybe 2 -3 times a week he took some meds +cigs Current Medications Albuterol/Ipratropium (Duoneb -) 1 amp NEB Q6H PRN PRN Reason: SHORTNESS OF BREATH Albuterol/Ipratropium (Duoneb -) 1 amp NEB RQID [facility] Last Admin: 03/09/19 11:50 Dose: 1 amp Amlodipine Besylate (Norvasc -) 5 mg PO DAILY [facility] Last Admin: 03/09/19 09:27 Dose: 5 mg Digoxin (Lanoxin -) 0.125 mg PO DAILY [facility] Last Admin: 03/09/19 09:27 Dose: 0.125 mg Enalapril Maleate (Vasotec -) 20 mg PO DAILY [facility] Last Admin: 03/09/19 09:26 Dose: 20 mg Furosemide (Lasix -) 20 mg PO DAILY [facility] Last Admin: 03/09/19 09:27 Dose: 20 mg Heparin Sodium (Porcine) (Heparin -) 5,000 unit SQ BID [facility] Last Admin: 03/09/19 09:28 Dose: 5,000 unit Ceftriaxone Sodium 1 gm/ (Dextrose) 50 mls @ 100 mls/hr IVPB DAILY [facility]; Protocol Last Admin: 03/09/19 09:27 Dose: 100 mls/hr Azithromycin (Zithromax 500mg Ivpb (Pre-Docked)) 500 mg in 250 mls @ 250 mls/ hr IVPB DAILY [facility] Last Admin: 03/09/19 09:28 Dose: 250 mls/hr Levothyroxine Sodium (Synthroid -) 25 mcg PO DAILY@0700 [facility] Last Admin: 03/09/19 06:06 Dose: 25 mcg Methotrexate (Mexate -) 20 mg PO Mo@1000 [facility] Methylprednisolone Sodium Succinate (Solu-Medrol -) 40 mg IVPUSH Q6H-IV [facility] Last Admin: 03/09/19 14:34 Dose: 40 mg Metoprolol Succinate (Toprol Xl -) 50 mg PO DAILY [facility] Last Admin: 03/09/19 09:27 Dose: 50 mg Mirtazapine (Remeron -) 15 mg PO HS [facility] Last Admin: 03/08/19 21:33 Dose: 15 mg Pantoprazole Sodium (Protonix -) 40 mg PO DAILY [facility] Last Admin: 03/09/19 09:27 Dose: 40 mg Vital Signs Period Temp Pulse Resp BP Sys/Barillas Pulse Ox Last 24 Hr 97.6 F-98.6 F 73-122 18-20 120-146/65-75 95-97 Constitutional: Yes: Well Nourished, No Distress Eyes: No: Sclera Icterus HENT: No: Nasal Congestion Neck: No: Decreased ROM Respiratory: Yes: CTA Bilaterally. No: Accessory Muscle Use, Rales, Tachypnea, Wheezes Gastrointestinal: Yes: Normal Bowel Sounds. No: Distention, Hepatomegaly, Palpable Mass, Tenderness Cardiovascular: Yes: Regular Rate and Rhythm JVD: No Carotid Bruit: No PMI: Non-Displaced Heart Sounds: Yes: S1, S2. No: Gallop Murmur: No: Systolic Murmur, Diastolic Murmur Musculoskeletal: Yes: Other (No kyphosis) Extremities: No: Cold Edema: No Peripheral Pulses: 2+ Left Carotid, 2+ Right Carotid, 2+ Left Doralis Pedis, 2+ Right Dorsalis Pedis Integumentary: No: Jaundice Neurological: Yes: Alert. No: Seizure Psychiatric: No: Agitated Assessment/Plan echo 09/04: nl LV/EF, no RWMA. nl RV. nl LA. mild AI. no RVSP. 4 cm ao root, 4.1 cm ascending. echo 02/2019 tds, LV function severely reduced, severe global hypokinesis of LV, RV not well visualized, mild MR, mod AR mibi 04/2013: mod septal ischemia per report CXR: emphysematous changes, no congestion shortness of breath, COPD - pulm consulted, treating for COPD exacerbation - BNP elevated however CXR no congestion, appears euvolemic - cont home PO lasix - trop neg x 2, EKG no ischemic changes - unlikely ACS fever, UTI - manage per primary chronic systolic HF - appears euvolemic now, per has episodes of edema at home when not taking lasix - may be in setting of tachycardia - on admission HR 120s, was not taking digoxin or bb consistently at home - discussed with patient and importance of med compliance - repeat study as outpatient with improved HR control - BNP elevated, however no congestion on CXR, appears euvolemic - continue PO lasix - cont bb, ACEI multifocal atrial tach (MAT): -sec to severe COPD - cont digoxin, bb - HR control improved htn: - cont home meds hld: -cont home statin possible cad: -prior mibi 2012 reported low-risk area of (septal) ischemia and has been managed medically with no angina sx's -pt with extensive atherosclerotic aorta vascular disease -normal lvef -cont home statin, bb, randall. -ASA held in recent past when developed NSAID-related PUD (dx'd on EGD) WHO 2 pulm HTN: -marked PA dilation noted on prior CTA chest -signif desats to 80s% on 6MWT--declined O2 due to refusal to stop smoking thoracic and abdominal aorta aneurysms: -known ascending aorta aneurysm 4.8 cm, and descending aorta aneurysm 4.0 cm, both unchanged on 01/02 study -small infrarenal AAA 3.2cm, increased vs 2.7 cm in 2016--pt has refused (any) f /u MD office visits or imaging since then--will repeat surveillance imaging while she is here -would be high risk (maybe not prohibitive) for open repair in any case ( ascending aorta not amenable to endovascular approach) + cigs: -repeatedly counselled cessation benefits and available modalities as outpt--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
--- NOTE | 2019-03-09 15:54 | PN ---
Progress Note (short form) - Note Progress Note: PULMONARY States breathing about the same. +nonproductive cough. No fevers. Vital Signs Period Temp Pulse Resp BP Sys/Barillas Pulse Ox Last 24 Hr 97.6 F-98.6 F 73-122 18-20 120-146/65-75 95-97 Gen: NAD at rest Heart: RRR Lung: distant breath sounds Abd: soft, nontender Ext: trace distal edema CBC, BMP 03/09/19 06:15 03/09/19 06:15 Active Medications Albuterol/Ipratropium (Duoneb -) 1 amp NEB Q6H PRN PRN Reason: SHORTNESS OF BREATH Albuterol/Ipratropium (Duoneb -) 1 amp NEB RQID [facility] Last Admin: 03/09/19 11:50 Dose: 1 amp Amlodipine Besylate (Norvasc -) 5 mg PO DAILY [facility] Last Admin: 03/09/19 09:27 Dose: 5 mg Digoxin (Lanoxin -) 0.125 mg PO DAILY [facility] Last Admin: 03/09/19 09:27 Dose: 0.125 mg Enalapril Maleate (Vasotec -) 20 mg PO DAILY [facility] Last Admin: 03/09/19 09:26 Dose: 20 mg Furosemide (Lasix -) 20 mg PO DAILY [facility] Last Admin: 03/09/19 09:27 Dose: 20 mg Heparin Sodium (Porcine) (Heparin -) 5,000 unit SQ BID [facility] Last Admin: 03/09/19 09:28 Dose: 5,000 unit Ceftriaxone Sodium 1 gm/ (Dextrose) 50 mls @ 100 mls/hr IVPB DAILY [facility]; Protocol Last Admin: 03/09/19 09:27 Dose: 100 mls/hr Azithromycin (Zithromax 500mg Ivpb (Pre-Docked)) 500 mg in 250 mls @ 250 mls/ hr IVPB DAILY [facility] Last Admin: 03/09/19 09:28 Dose: 250 mls/hr Levothyroxine Sodium (Synthroid -) 25 mcg PO DAILY@0700 [facility] Last Admin: 03/09/19 06:06 Dose: 25 mcg Methotrexate (Mexate -) 20 mg PO Mo@1000 [facility] Methylprednisolone Sodium Succinate (Solu-Medrol -) 40 mg IVPUSH Q6H-IV [facility] Last Admin: 03/09/19 14:34 Dose: 40 mg Metoprolol Succinate (Toprol Xl -) 50 mg PO DAILY [facility] Last Admin: 03/09/19 09:27 Dose: 50 mg Mirtazapine (Remeron -) 15 mg PO HS [facility] Last Admin: 03/08/19 21:33 Dose: 15 mg Pantoprazole Sodium (Protonix -) 40 mg PO DAILY [facility] Last Admin: 03/09/19 09:27 Dose: 40 mg A/P Acute COPD Exacerbation Severe LV Systolic Dysfunction Pulmonary HTN HTN Rheumatoid Arthritis MAT Aortic Aneurysms Hypothyroidism Smoker - continue medrol at current dose - inhaled bronchodilators - O2 to keep SpO2 >90% - on empiric antibiotics - smoking cessation - DVT prophylaxis
[2019-03-09] MEDS: MIRTAZAPINE 15 MG TABLET (FP) PO SCH (21:48)
[2019-03-10] MEDS: methylPREDNISolone NA SUCC 40 MG/1 ML VIAL IVPUSH SCH ×4 (02:49→21:46)
[2019-03-10] MEDS: LEVOTHYROXINE NA 25 MCG TABLET (FP) PO SCH (06:18)
[2019-03-10] MEDS: ALBUTEROL SO4 2.5/IPRATROPIUM 0.5 INH SOL 3 ML VIAL.NEB. NEB SCH ×4 (07:30→20:58)
[2019-03-10 07:46] LABS: BASO % 0.3 % (0-2.0); HEMATOCRIT 36.8 % (32.4-45.2); HEMOGLOBIN 12.5 GM/dL (10.7-15.3); LYMPH % 6.2 % (8-40); MCH 28.9 pg (25.7-33.7); MCHC 33.9 g/dl (32.0-36.0); MEAN CELL VOLUME 85.4 fl (80-96); MEAN PLT VOLUME 7.2 fl (7.5-11.1); MONO % 2.4 % (3.8-10.2); NEUT % 91.1 % (42.8-82.8); PLATELET COUNT 388 K/MM3 (134-434); RBC 4.31 M/mm3 (3.60-5.2); RDW 16.2 % (11.6-15.6); WHITE BLOOD COUNT 13.5 K/mm3 (4.0-10.0)
[2019-03-10 08:06] LABS: ALBUMIN 2.3 g/dl (3.4-5.0); BILIRUBIN,TOTAL 0.2 mg/dL (0.2-1); BLOOD UREA NITROGEN 18.4 mg/dL (7-18); CALCIUM 9.4 mg/dL (8.5-10.1); CREATININE 0.6 mg/dL (0.55-1.3); MAGNESIUM 2.1 mg/dL (1.8-2.4); POTASSIUM 4.5 mmol/L (3.5-5.1); TOT PROT 5.9 g/dl (6.4-8.2)
[2019-03-10] MEDS ORDERED: cefTRIAXone SODIUM 1 GM VIAL ONE (08:42)
[2019-03-10] MEDS ORDERED: DEXTROSE 5%-WATER - 50 ML IVPB ONE (08:42)
[2019-03-10] MEDS: CEFTRIAXONE 1 GM in DEXTROSE 5%-WATER - 50 ML IVPB SCH (09:32)
[2019-03-10] MEDS: AZITHROMYCIN IVPB 500 MG/250 ML BAG IVPB SCH (09:33)
[2019-03-10] MEDS: DIGOXIN 0.125 MG TABLET (FP) PO SCH (09:33)
[2019-03-10] MEDS: PANTOPRAZOLE 40 MG TABLET (FP) PO SCH (09:33)
[2019-03-10] MEDS: FUROSEMIDE 20 MG TABLET (FP) PO SCH (09:33)
[2019-03-10] MEDS: ENALAPRIL MALEATE 10 MG TABLET (FP) PO SCH (09:33)
[2019-03-10] MEDS: amLODIPine BESYLATE 5 MG TABLET (FP) PO SCH (09:34)
[2019-03-10] MEDS: HEPARIN NA (PORCINE) 5,000 UNITS/ML 1ML VIAL SQ SCH ×2 (09:34→21:46)
[2019-03-10 11:10] LABS: ANISOCYTOSIS 2+; MACROCYTOSIS 0; OVALOCYTE 1+; PLATELET ESTIMATE NORMAL
--- NOTE | 2019-03-10 12:55 | PN ---
Progress Note, Physician Chief Complaint: awake alert feeling better distant breath sounds - Current Medication List Current Medications: Active Medications Albuterol/Ipratropium (Duoneb -) 1 amp NEB Q6H PRN PRN Reason: SHORTNESS OF BREATH Albuterol/Ipratropium (Duoneb -) 1 amp NEB RQID [facility] Last Admin: 03/10/19 11:49 Dose: Not Given Amlodipine Besylate (Norvasc -) 5 mg PO DAILY [facility] Last Admin: 03/10/19 09:34 Dose: 5 mg Digoxin (Lanoxin -) 0.125 mg PO DAILY [facility] Last Admin: 03/10/19 09:33 Dose: 0.125 mg Enalapril Maleate (Vasotec -) 20 mg PO DAILY [facility] Last Admin: 03/10/19 09:33 Dose: 20 mg Furosemide (Lasix -) 20 mg PO DAILY [facility] Last Admin: 03/10/19 09:33 Dose: 20 mg Heparin Sodium (Porcine) (Heparin -) 5,000 unit SQ BID [facility] Last Admin: 03/10/19 09:34 Dose: 5,000 unit Ceftriaxone Sodium 1 gm/ (Dextrose) 50 mls @ 100 mls/hr IVPB DAILY [facility]; Protocol Last Admin: 03/10/19 09:32 Dose: 100 mls/hr Azithromycin (Zithromax 500mg Ivpb (Pre-Docked)) 500 mg in 250 mls @ 250 mls/ hr IVPB DAILY [facility] Last Admin: 03/10/19 09:33 Dose: 250 mls/hr Levothyroxine Sodium (Synthroid -) 25 mcg PO DAILY@0700 [facility] Last Admin: 03/10/19 06:18 Dose: 25 mcg Methotrexate (Mexate -) 20 mg PO Mo@1000 [facility] Methylprednisolone Sodium Succinate (Solu-Medrol -) 40 mg IVPUSH Q6H-IV [facility] Last Admin: 03/10/19 09:34 Dose: 40 mg Metoprolol Succinate (Toprol Xl -) 50 mg PO DAILY [facility] Last Admin: 03/10/19 09:33 Dose: 50 mg Mirtazapine (Remeron -) 15 mg PO HS [facility] Last Admin: 03/09/19 21:48 Dose: 15 mg Pantoprazole Sodium (Protonix -) 40 mg PO DAILY [facility] Last Admin: 03/10/19 09:33 Dose: 40 mg - Objective Vital Signs: Vital Signs Temperature 97.2 F L 03/10/19 09:00 Pulse Rate 71 03/10/19 09:33 Respiratory Rate 18 03/10/19 09:00 Blood Pressure 132/52 L 03/10/19 09:00 O2 Sat by Pulse Oximetry (%) 96 03/10/19 09:00 Constitutional: Yes: Calm, Thin Cardiovascular: Yes: Regular Rate and Rhythm, S1, S2 Respiratory: Yes: Other (distant breath sounds) Gastrointestinal: Yes: Normal Bowel Sounds, Soft Edema: Yes Neurological: Yes: Alert, Oriented Labs: CBC, BMP 03/10/19 06:45 03/10/19 06:45 INR, PTT INR 1.19 (0.83-1.09) H 03/07/19 18:50 Problem List - Problems (1) Fever Assessment/Plan: iv abx rocephin zithromax possible pna Microbiology 03/08/19 19:25 Blood - Peripheral Venous Blood Culture - Preliminary NO GROWTH OBTAINED AFTER 24 HOURS, INCUBATION TO CONTINUE FOR 4 DAYS. 03/08/19 19:25 Blood - Peripheral Venous Blood Culture - Preliminary NO GROWTH OBTAINED AFTER 24 HOURS, INCUBATION TO CONTINUE FOR 4 DAYS. Microbiology 03/07/19 18:50 Blood - Peripheral Venous Blood Culture - Preliminary Staphylococcus Coagulase Neg got vancomcycin one dose for above culture repeat culture was negative Code(s): R50.9 - FEVER, UNSPECIFIED Qualifiers: Fever type: unspecified Qualified Code(s): R50.9 - Fever, unspecified (2) SOB (shortness of breath) Assessment/Plan: iv medrol q 6hrs inhalers leukocytosis secondary to steroids Code(s): R06.02 - SHORTNESS OF BREATH (3) Hypothyroid Assessment/Plan: synthroid tsh normal Code(s): E03.9 - HYPOTHYROIDISM, UNSPECIFIED
--- NOTE | 2019-03-10 12:58 | PN ---
Progress Note, Physician History of Present Illness: OOB IN CHAIR NO COMPLAINTS DENIES DYSPNEA/ COUGH NO C/O F/C BC SCN - Current Medication List Current Medications: Active Medications Albuterol/Ipratropium (Duoneb -) 1 amp NEB Q6H PRN PRN Reason: SHORTNESS OF BREATH Albuterol/Ipratropium (Duoneb -) 1 amp NEB RQID [facility] Last Admin: 03/10/19 11:49 Dose: Not Given Amlodipine Besylate (Norvasc -) 5 mg PO DAILY [facility] Last Admin: 03/10/19 09:34 Dose: 5 mg Digoxin (Lanoxin -) 0.125 mg PO DAILY [facility] Last Admin: 03/10/19 09:33 Dose: 0.125 mg Enalapril Maleate (Vasotec -) 20 mg PO DAILY [facility] Last Admin: 03/10/19 09:33 Dose: 20 mg Furosemide (Lasix -) 20 mg PO DAILY [facility] Last Admin: 03/10/19 09:33 Dose: 20 mg Heparin Sodium (Porcine) (Heparin -) 5,000 unit SQ BID [facility] Last Admin: 03/10/19 09:34 Dose: 5,000 unit Ceftriaxone Sodium 1 gm/ (Dextrose) 50 mls @ 100 mls/hr IVPB DAILY [facility]; Protocol Last Admin: 03/10/19 09:32 Dose: 100 mls/hr Azithromycin (Zithromax 500mg Ivpb (Pre-Docked)) 500 mg in 250 mls @ 250 mls/ hr IVPB DAILY [facility] Last Admin: 03/10/19 09:33 Dose: 250 mls/hr Levothyroxine Sodium (Synthroid -) 25 mcg PO DAILY@0700 [facility] Last Admin: 03/10/19 06:18 Dose: 25 mcg Methotrexate (Mexate -) 20 mg PO Mo@1000 [facility] Methylprednisolone Sodium Succinate (Solu-Medrol -) 40 mg IVPUSH Q6H-IV [facility] Last Admin: 03/10/19 09:34 Dose: 40 mg Metoprolol Succinate (Toprol Xl -) 50 mg PO DAILY [facility] Last Admin: 03/10/19 09:33 Dose: 50 mg Mirtazapine (Remeron -) 15 mg PO HS [facility] Last Admin: 03/09/19 21:48 Dose: 15 mg Pantoprazole Sodium (Protonix -) 40 mg PO DAILY [facility] Last Admin: 03/10/19 09:33 Dose: 40 mg - Objective Vital Signs: Vital Signs Temperature 97.2 F L 03/10/19 09:00 Pulse Rate 71 03/10/19 09:33 Respiratory Rate 18 03/10/19 09:00 Blood Pressure 132/52 L 03/10/19 09:00 O2 Sat by Pulse Oximetry (%) 96 03/10/19 09:00 Constitutional: Yes: No Distress Cardiovascular: Yes: Regular Rate and Rhythm, S1, S2 Respiratory: Yes: Diminished Gastrointestinal: Yes: Normal Bowel Sounds, Soft. No: Tenderness Edema: Yes Edema: LLE: 1+, RLE: 1+ Labs: CBC, BMP 03/10/19 06:45 03/10/19 06:45 INR, PTT INR 1.19 (0.83-1.09) H 03/07/19 18:50 Assessment/Plan ACUTE EXACERBATION COPD FEVER RESOLVED + BC SCN= [facility] PO ZITHROMAX NO TX FOR + BC
--- NOTE | 2019-03-10 14:49 | PN ---
Progress Note, Physician History of Present Illness: pulmonary feeling better,less dyspneic,-cp - Current Medication List Current Medications: Active Medications Albuterol/Ipratropium (Duoneb -) 1 amp NEB Q6H PRN PRN Reason: SHORTNESS OF BREATH Albuterol/Ipratropium (Duoneb -) 1 amp NEB RQID [facility] Last Admin: 03/10/19 11:49 Dose: Not Given Amlodipine Besylate (Norvasc -) 5 mg PO DAILY [facility] Last Admin: 03/10/19 09:34 Dose: 5 mg Azithromycin (Zithromax -) 250 mg PO DAILY [facility] Digoxin (Lanoxin -) 0.125 mg PO DAILY [facility] Last Admin: 03/10/19 09:33 Dose: 0.125 mg Enalapril Maleate (Vasotec -) 20 mg PO DAILY [facility] Last Admin: 03/10/19 09:33 Dose: 20 mg Furosemide (Lasix -) 20 mg PO DAILY [facility] Last Admin: 03/10/19 09:33 Dose: 20 mg Heparin Sodium (Porcine) (Heparin -) 5,000 unit SQ BID [facility] Last Admin: 03/10/19 09:34 Dose: 5,000 unit Levothyroxine Sodium (Synthroid -) 25 mcg PO DAILY@0700 [facility] Last Admin: 03/10/19 06:18 Dose: 25 mcg Methotrexate (Mexate -) 20 mg PO Mo@1000 [facility] Methylprednisolone Sodium Succinate (Solu-Medrol -) 40 mg IVPUSH Q6H-IV [facility] Last Admin: 03/10/19 09:34 Dose: 40 mg Metoprolol Succinate (Toprol Xl -) 50 mg PO DAILY [facility] Last Admin: 03/10/19 09:33 Dose: 50 mg Mirtazapine (Remeron -) 15 mg PO HS [facility] Last Admin: 03/09/19 21:48 Dose: 15 mg Pantoprazole Sodium (Protonix -) 40 mg PO DAILY [facility] Last Admin: 03/10/19 09:33 Dose: 40 mg - Objective Vital Signs: Vital Signs Temperature 98.6 F 03/10/19 13:56 Pulse Rate 108 H 03/10/19 13:56 Respiratory Rate 18 03/10/19 13:56 Blood Pressure 138/77 03/10/19 13:56 O2 Sat by Pulse Oximetry (%) 96 03/10/19 09:00 Constitutional: Yes: Well Nourished, Calm Eyes: Yes: WNL HENT: Yes: WNL Neck: Yes: WNL Cardiovascular: Yes: Regular Rate and Rhythm, S1, S2 Respiratory: Yes: Diminished, Wheezes (few wheezes) Gastrointestinal: Yes: Normal Bowel Sounds, Soft Extremities: Yes: WNL Edema: Yes Labs: CBC, BMP 03/10/19 06:45 03/10/19 06:45 INR, PTT INR 1.19 (0.83-1.09) H 03/07/19 18:50 Problem List - Problems (1) Dementia Code(s): F03.90 - UNSPECIFIED DEMENTIA WITHOUT BEHAVIORAL DISTURBANCE (2) SOB (shortness of breath) Code(s): R06.02 - SHORTNESS OF BREATH (3) CAD (coronary artery disease) Code(s): I25.10 - ATHSCL HEART DISEASE OF [place] CORONARY ARTERY W/O ANG PCTRS (4) COPD exacerbation Code(s): J44.1 - CHRONIC OBSTRUCTIVE PULMONARY DISEASE W (ACUTE) EXACERBATION (5) Cough Code(s): R05 - COUGH (6) Electrolyte abnormality Code(s): E87.8 - OTH DISORDERS OF ELECTROLYTE AND FLUID BALANCE, NEC (7) Hyperlipidemia Code(s): E78.5 - HYPERLIPIDEMIA, UNSPECIFIED (8) Hypertension Code(s): I10 - ESSENTIAL (PRIMARY) HYPERTENSION (9) Rheumatoid arthritis Code(s): M06.9 - RHEUMATOID ARTHRITIS, UNSPECIFIED Assessment/Plan IMP DYSPNEA COPD EXACERBATION CHF SEVERE LV SYSTOLIC DYSFUNCTION PULMONARY HTN THORACIC AORTIC ANEURYSM AAA DEMENTIA HLD HTN RA PLAN INHALED BRONCHODILATORS O2 MEDROL taper LASIX F/U CHEST X-RAYS DAILY WT DR LOVELACE Problem List - Problems (1) Dementia Code(s): F03.90 - UNSPECIFIED DEMENTIA WITHOUT BEHAVIORAL DISTURBANCE (2) SOB (shortness of breath) Code(s): R06.02 - SHORTNESS OF BREATH (3) CAD (coronary artery disease) Code(s): I25.10 - ATHSCL HEART DISEASE OF [place] CORONARY ARTERY W/O ANG PCTRS (4) COPD exacerbation Code(s): J44.1 - CHRONIC OBSTRUCTIVE PULMONARY DISEASE W (ACUTE) EXACERBATION (5) Cough Code(s): R05 - COUGH (6) Electrolyte abnormality Code(s): E87.8 - OTH DISORDERS OF ELECTROLYTE AND FLUID BALANCE, NEC (7) Hyperlipidemia Code(s): E78.5 - HYPERLIPIDEMIA, UNSPECIFIED (8) Hypertension Code(s): I10 - ESSENTIAL (PRIMARY) HYPERTENSION (9) Rheumatoid arthritis Code(s): M06.9 - RHEUMATOID ARTHRITIS, UNSPECIFIED
--- NOTE | 2019-03-10 15:42 | EKG ---
Test Reason : Blood Pressure : / mmHG Vent. Rate : 087 BPM Atrial Rate : 087 BPM P-R Int : 182 ms QRS Dur : 084 ms QT Int : 364 ms P-R-T Axes : -06 -01 026 degrees QTc Int : 438 ms SINUS RHYTHM WITH PREMATURE SUPRAVENTRICULAR COMPLEXES POSSIBLE ANTERIOR INFARCT , AGE UNDETERMINED ABNORMAL ECG WHEN COMPARED WITH ECG OF 07-MAR-2019 18:13, CA INTERVAL HAS DECREASED NONSPECIFIC T WAVE ABNORMALITY NOW EVIDENT IN ANTERIOR LEADS Confirmed by CHERYL MEEHAN MD ([id number]) on 03/10/2019 3:41:40 PM Referred By: Confirmed By:CHERYL MEEHAN MD
--- NOTE | 2019-03-10 15:46 | PN ---
Progress Note (short form) - Note Progress Note: no chest pain, palps, dizziness, dyspnea Current Medications Albuterol/Ipratropium (Duoneb -) 1 amp NEB Q6H PRN PRN Reason: SHORTNESS OF BREATH Albuterol/Ipratropium (Duoneb -) 1 amp NEB RQID [facility] Last Admin: 03/10/19 11:49 Dose: Not Given Amlodipine Besylate (Norvasc -) 5 mg PO DAILY [facility] Last Admin: 03/10/19 09:34 Dose: 5 mg Azithromycin (Zithromax -) 250 mg PO DAILY [facility] Digoxin (Lanoxin -) 0.125 mg PO DAILY [facility] Last Admin: 03/10/19 09:33 Dose: 0.125 mg Enalapril Maleate (Vasotec -) 20 mg PO DAILY [facility] Last Admin: 03/10/19 09:33 Dose: 20 mg Furosemide (Lasix -) 20 mg PO DAILY [facility] Last Admin: 03/10/19 09:33 Dose: 20 mg Heparin Sodium (Porcine) (Heparin -) 5,000 unit SQ BID [facility] Last Admin: 03/10/19 09:34 Dose: 5,000 unit Levothyroxine Sodium (Synthroid -) 25 mcg PO DAILY@0700 [facility] Last Admin: 03/10/19 06:18 Dose: 25 mcg Methotrexate (Mexate -) 20 mg PO Mo@1000 [facility] Methylprednisolone Sodium Succinate (Solu-Medrol -) 40 mg IVPUSH Q6H-IV [facility] Last Admin: 03/10/19 15:21 Dose: 40 mg Metoprolol Succinate (Toprol Xl -) 50 mg PO DAILY [facility] Last Admin: 03/10/19 09:33 Dose: 50 mg Mirtazapine (Remeron -) 15 mg PO HS [facility] Last Admin: 03/09/19 21:48 Dose: 15 mg Pantoprazole Sodium (Protonix -) 40 mg PO DAILY [facility] Last Admin: 03/10/19 09:33 Dose: 40 mg Vital Signs Period Temp Pulse Resp BP Sys/[place] Pulse Ox Last 24 Hr 97.2 F-98.8 F 66-114 18-20 118-140/52-89 96-97 Constitutional: Yes: Well Nourished, No Distress Eyes: No: Sclera Icterus HENT: No: Nasal Congestion Neck: No: Decreased ROM Respiratory: Yes: CTA Bilaterally. No: Accessory Muscle Use, Rales, Tachypnea, Wheezes Gastrointestinal: Yes: Normal Bowel Sounds. No: Distention, Hepatomegaly, Palpable Mass, Tenderness Cardiovascular: Yes: Regular Rate and Rhythm JVD: No Carotid Bruit: No PMI: Non-Displaced Heart Sounds: Yes: S1, S2. No: Gallop Murmur: No: Systolic Murmur, Diastolic Murmur Musculoskeletal: Yes: Other (No kyphosis) Extremities: No: Cold Edema: No Peripheral Pulses: 2+ Left Carotid, 2+ Right Carotid, 2+ Left Doralis Pedis, 2+ Right Dorsalis Pedis Integumentary: No: Jaundice Neurological: Yes: Alert. No: Seizure Psychiatric: No: Agitated Assessment/Plan echo 09/04: nl LV/EF, no RWMA. nl RV. nl LA. mild AI. no RVSP. 4 cm ao root, 4.1 cm ascending. echo 02/2019 tds, LV function severely reduced, severe global hypokinesis of LV, RV not well visualized, mild MR, mod AR mibi 04/2013: mod septal ischemia per report CXR: emphysematous changes, no congestion shortness of breath, COPD - pulm consulted, treating for COPD exacerbation - BNP elevated however CXR no congestion, appears euvolemic - cont home PO lasix - trop neg x 2, EKG no ischemic changes - unlikely ACS fever, UTI - manage per primary chronic systolic HF - appears euvolemic, per has episodes of edema at home when not taking lasix - may be in setting of tachycardia - on admission HR 120s, was not taking digoxin or bb consistently at home - discussed with patient and importance of med compliance - repeat study as outpatient with improved HR control - BNP elevated, however no congestion on CXR, appears euvolemic - continue PO lasix - cont bb, ACEI multifocal atrial tach (MAT): -sec to severe COPD - cont digoxin, bb - HR control improved htn: - cont home meds hld: -cont home statin possible cad: -prior mibi 2012 reported low-risk area of (septal) ischemia and has been managed medically with no angina sx's -pt with extensive atherosclerotic aorta vascular disease -normal lvef -cont home statin, bb, randall. -ASA held in recent past when developed NSAID-related PUD (dx'd on EGD) WHO 2 pulm HTN: -marked PA dilation noted on prior CTA chest -signif desats to 80s% on 6MWT--declined O2 due to refusal to stop smoking thoracic and abdominal aorta aneurysms: -known ascending aorta aneurysm 4.8 cm, and descending aorta aneurysm 4.0 cm, both unchanged on 01/02 study -small infrarenal AAA 3.2cm, increased vs 2.7 cm in 2016--pt has refused (any) f /u MD office visits or imaging since then--will repeat surveillance imaging while she is here -would be high risk (maybe not prohibitive) for open repair in any case ( ascending aorta not amenable to endovascular approach) + cigs: -repeatedly counselled cessation benefits and available modalities as outpt--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
[2019-03-10] MEDS: MIRTAZAPINE 15 MG TABLET (FP) PO SCH (21:47)
[2019-03-11] MEDS: methylPREDNISolone NA SUCC 40 MG/1 ML VIAL IVPUSH SCH ×3 (02:28→17:03)
[2019-03-11] MEDS: LEVOTHYROXINE NA 25 MCG TABLET (FP) PO SCH (06:12)
[2019-03-11] MEDS: ALBUTEROL SO4 2.5/IPRATROPIUM 0.5 INH SOL 3 ML VIAL.NEB. NEB SCH ×4 (07:39→20:25)
[2019-03-11 07:53] LABS: BASO % 0.2 % (0-2.0); HEMATOCRIT 38.6 % (32.4-45.2); HEMOGLOBIN 13.2 GM/dL (10.7-15.3); MCH 29.1 pg (25.7-33.7); MCHC 34.2 g/dl (32.0-36.0); MEAN CELL VOLUME 85.2 fl (80-96); MEAN PLT VOLUME 7.3 fl (7.5-11.1); MONO % 3.6 % (3.8-10.2); NEUT % 88.2 % (42.8-82.8); PLATELET COUNT 393 K/MM3 (134-434); RBC 4.53 M/mm3 (3.60-5.2); RDW 15.8 % (11.6-15.6); WHITE BLOOD COUNT 10.4 K/mm3 (4.0-10.0)
[2019-03-11 08:25] LABS: ALBUMIN 2.4 g/dl (3.4-5.0); BILIRUBIN,TOTAL 0.3 mg/dL (0.2-1); BLOOD UREA NITROGEN 17.2 mg/dL (7-18); CALCIUM 9.1 mg/dL (8.5-10.1); CREATININE 0.6 mg/dL (0.55-1.3); TOT PROT 6.1 g/dl (6.4-8.2)
[2019-03-11] MEDS: DIGOXIN 0.125 MG TABLET (FP) PO SCH (10:04)
[2019-03-11] MEDS: ENALAPRIL MALEATE 10 MG TABLET (FP) PO SCH (10:04)
[2019-03-11] MEDS: HEPARIN NA (PORCINE) 5,000 UNITS/ML 1ML VIAL SQ SCH ×2 (10:05→22:04)
[2019-03-11] MEDS: PANTOPRAZOLE 40 MG TABLET (FP) PO SCH (10:06)
[2019-03-11] MEDS: AZITHROMYCIN 250 MG TABLET PO SCH (10:07)
[2019-03-11] MEDS: amLODIPine BESYLATE 5 MG TABLET (FP) PO SCH (10:07)
[2019-03-11] MEDS: FUROSEMIDE 20 MG TABLET (FP) PO SCH (10:07)
--- NOTE | 2019-03-11 10:21 | PN ---
Progress Note, Physician - Current Medication List Current Medications: Active Medications Albuterol/Ipratropium (Duoneb -) 1 amp NEB Q6H PRN PRN Reason: SHORTNESS OF BREATH Albuterol/Ipratropium (Duoneb -) 1 amp NEB RQID [facility] Last Admin: 03/11/19 07:39 Dose: 1 amp Amlodipine Besylate (Norvasc -) 5 mg PO DAILY [facility] Last Admin: 03/11/19 10:07 Dose: 5 mg Azithromycin (Zithromax -) 250 mg PO DAILY [facility] Last Admin: 03/11/19 10:07 Dose: 250 mg Digoxin (Lanoxin -) 0.125 mg PO DAILY [facility] Last Admin: 03/11/19 10:04 Dose: 0.125 mg Enalapril Maleate (Vasotec -) 20 mg PO DAILY [facility] Last Admin: 03/11/19 10:04 Dose: 20 mg Furosemide (Lasix -) 20 mg PO DAILY [facility] Last Admin: 03/11/19 10:07 Dose: 20 mg Heparin Sodium (Porcine) (Heparin -) 5,000 unit SQ BID [facility] Last Admin: 03/11/19 10:05 Dose: 5,000 unit Levothyroxine Sodium (Synthroid -) 25 mcg PO DAILY@0700 [facility] Last Admin: 03/11/19 06:12 Dose: 25 mcg Methotrexate (Mexate -) 20 mg PO Mo@1000 [facility] Methylprednisolone Sodium Succinate (Solu-Medrol -) 40 mg IVPUSH Q6H-IV [facility] Last Admin: 03/11/19 10:01 Dose: 40 mg Metoprolol Succinate (Toprol Xl -) 50 mg PO DAILY [facility] Last Admin: 03/11/19 10:06 Dose: 50 mg Mirtazapine (Remeron -) 15 mg PO HS [facility] Last Admin: 03/10/19 21:47 Dose: 15 mg Pantoprazole Sodium (Protonix -) 40 mg PO DAILY [facility] Last Admin: 03/11/19 10:06 Dose: 40 mg - Objective Vital Signs: Vital Signs Temperature 97.8 F 03/11/19 05:00 Pulse Rate 109 H 03/11/19 10:04 Respiratory Rate 18 03/11/19 05:00 Blood Pressure 139/60 03/11/19 05:00 O2 Sat by Pulse Oximetry (%) 96 03/10/19 21:00 Cardiovascular: Yes: S1, S2 Respiratory: Yes: Rhonchi Gastrointestinal: Yes: Normal Bowel Sounds, Soft Labs: CBC, BMP 03/11/19 06:10 03/11/19 06:10 INR, PTT INR 1.19 (0.83-1.09) H 03/07/19 18:50 Assessment/Plan - Problems (1) Fever Assessment/Plan: iv abx rocephin zithromax possible pna Microbiology 03/08/19 19:25 Blood - Peripheral Venous Blood Culture - Preliminary NO GROWTH OBTAINED AFTER 24 HOURS, INCUBATION TO CONTINUE FOR 4 DAYS. 03/08/19 19:25 Blood - Peripheral Venous Blood Culture - Preliminary NO GROWTH OBTAINED AFTER 24 HOURS, INCUBATION TO CONTINUE FOR 4 DAYS. Microbiology 03/07/19 18:50 Blood - Peripheral Venous Blood Culture - Preliminary Staphylococcus Coagulase Neg got vancomcycin one dose for above culture repeat culture was negative Code(s): R50.9 - FEVER, UNSPECIFIED Qualifiers: Fever type: unspecified Qualified Code(s): R50.9 - Fever, unspecified (2) SOB (shortness of breath) Assessment/Plan: iv medrol q 6hrs inhalers leukocytosis secondary to steroids Code(s): R06.02 - SHORTNESS OF BREATH (3) Hypothyroid Assessment/Plan: synthroid tsh normal Code(s): E03.9 - HYPOTHYROIDISM, UNSPECIFIED
[2019-03-11 10:45] LABS: ANISOCYTOSIS 0; MACROCYTOSIS 0; PLATELET ESTIMATE NORMAL
--- NOTE | 2019-03-11 11:53 | PN ---
Progress Note, Physician History of Present Illness: pulmonary alert,feeling better,dyspnea improving - Current Medication List Current Medications: Active Medications Albuterol/Ipratropium (Duoneb -) 1 amp NEB Q6H PRN PRN Reason: SHORTNESS OF BREATH Albuterol/Ipratropium (Duoneb -) 1 amp NEB RQID [facility] Last Admin: 03/11/19 11:15 Dose: 1 amp Amlodipine Besylate (Norvasc -) 5 mg PO DAILY [facility] Last Admin: 03/11/19 10:07 Dose: 5 mg Azithromycin (Zithromax -) 250 mg PO DAILY [facility] Last Admin: 03/11/19 10:07 Dose: 250 mg Digoxin (Lanoxin -) 0.125 mg PO DAILY [facility] Last Admin: 03/11/19 10:04 Dose: 0.125 mg Enalapril Maleate (Vasotec -) 20 mg PO DAILY [facility] Last Admin: 03/11/19 10:04 Dose: 20 mg Furosemide (Lasix -) 20 mg PO DAILY [facility] Last Admin: 03/11/19 10:07 Dose: 20 mg Heparin Sodium (Porcine) (Heparin -) 5,000 unit SQ BID [facility] Last Admin: 03/11/19 10:05 Dose: 5,000 unit Levothyroxine Sodium (Synthroid -) 25 mcg PO DAILY@0700 [facility] Last Admin: 03/11/19 06:12 Dose: 25 mcg Methotrexate (Mexate -) 20 mg PO Mo@1000 [facility] Methylprednisolone Sodium Succinate (Solu-Medrol -) 40 mg IVPUSH Q6H-IV [facility] Last Admin: 03/11/19 10:01 Dose: 40 mg Metoprolol Succinate (Toprol Xl -) 50 mg PO DAILY [facility] Last Admin: 03/11/19 10:06 Dose: 50 mg Mirtazapine (Remeron -) 15 mg PO HS [facility] Last Admin: 03/10/19 21:47 Dose: 15 mg Pantoprazole Sodium (Protonix -) 40 mg PO DAILY [facility] Last Admin: 03/11/19 10:06 Dose: 40 mg - Objective Vital Signs: Vital Signs Temperature 97.8 F 03/11/19 05:00 Pulse Rate 109 H 03/11/19 10:04 Respiratory Rate 18 03/11/19 05:00 Blood Pressure 139/60 03/11/19 05:00 O2 Sat by Pulse Oximetry (%) 96 03/10/19 21:00 Constitutional: Yes: Well Nourished, Calm Eyes: Yes: WNL HENT: Yes: WNL Neck: Yes: WNL Cardiovascular: Yes: Regular Rate and Rhythm, S1, S2 Respiratory: Yes: Wheezes (few wheezes) Gastrointestinal: Yes: Normal Bowel Sounds, Soft Extremities: Yes: WNL Edema: Yes Labs: CBC, BMP 03/11/19 06:10 03/11/19 06:10 INR, PTT INR 1.19 (0.83-1.09) H 03/07/19 18:50 Problem List - Problems (1) Dementia Code(s): F03.90 - UNSPECIFIED DEMENTIA WITHOUT BEHAVIORAL DISTURBANCE (2) SOB (shortness of breath) Code(s): R06.02 - SHORTNESS OF BREATH (3) CAD (coronary artery disease) Code(s): I25.10 - ATHSCL HEART DISEASE OF [place] CORONARY ARTERY W/O ANG PCTRS (4) COPD exacerbation Code(s): J44.1 - CHRONIC OBSTRUCTIVE PULMONARY DISEASE W (ACUTE) EXACERBATION (5) Cough Code(s): R05 - COUGH (6) Electrolyte abnormality Code(s): E87.8 - OTH DISORDERS OF ELECTROLYTE AND FLUID BALANCE, NEC (7) Hyperlipidemia Code(s): E78.5 - HYPERLIPIDEMIA, UNSPECIFIED (8) Hypertension Code(s): I10 - ESSENTIAL (PRIMARY) HYPERTENSION (9) Rheumatoid arthritis Code(s): M06.9 - RHEUMATOID ARTHRITIS, UNSPECIFIED Assessment/Plan IMP DYSPNEA COPD EXACERBATION CHF SEVERE LV SYSTOLIC DYSFUNCTION PULMONARY HTN THORACIC AORTIC ANEURYSM AAA DEMENTIA HLD HTN RA PLAN INHALED BRONCHODILATORS O2 TAPER MEDROL LASIX F/U CHEST X-RAYS DAILY WT DR LOVELACE Problem List - Problems (1) Dementia Code(s): F03.90 - UNSPECIFIED DEMENTIA WITHOUT BEHAVIORAL DISTURBANCE (2) SOB (shortness of breath) Code(s): R06.02 - SHORTNESS OF BREATH (3) CAD (coronary artery disease) Code(s): I25.10 - ATHSCL HEART DISEASE OF [place] CORONARY ARTERY W/O ANG PCTRS (4) COPD exacerbation Code(s): J44.1 - CHRONIC OBSTRUCTIVE PULMONARY DISEASE W (ACUTE) EXACERBATION (5) Cough Code(s): R05 - COUGH (6) Electrolyte abnormality Code(s): E87.8 - OTH DISORDERS OF ELECTROLYTE AND FLUID BALANCE, NEC (7) Hyperlipidemia Code(s): E78.5 - HYPERLIPIDEMIA, UNSPECIFIED (8) Hypertension Code(s): I10 - ESSENTIAL (PRIMARY) HYPERTENSION (9) Rheumatoid arthritis Code(s): M06.9 - RHEUMATOID ARTHRITIS, UNSPECIFIED
[2019-03-11] MEDS: MIRTAZAPINE 15 MG TABLET (FP) PO SCH (22:04)
[2019-03-12] MEDS: methylPREDNISolone NA SUCC 40 MG/1 ML VIAL IVPUSH SCH ×3 (02:12→21:28)
[2019-03-12] MEDS: LEVOTHYROXINE NA 25 MCG TABLET (FP) PO SCH (06:17)
[2019-03-12] MEDS: ALBUTEROL SO4 2.5/IPRATROPIUM 0.5 INH SOL 3 ML VIAL.NEB. NEB SCH ×4 (07:48→21:15)
[2019-03-12] MEDS: HEPARIN NA (PORCINE) 5,000 UNITS/ML 1ML VIAL SQ SCH ×2 (10:34→21:28)
[2019-03-12] MEDS: PANTOPRAZOLE 40 MG TABLET (FP) PO SCH (10:35)
[2019-03-12] MEDS: amLODIPine BESYLATE 5 MG TABLET (FP) PO SCH (10:35)
[2019-03-12] MEDS: FUROSEMIDE 20 MG TABLET (FP) PO SCH (10:35)
[2019-03-12] MEDS: DIGOXIN 0.125 MG TABLET (FP) PO SCH (10:35)
[2019-03-12] MEDS: ENALAPRIL MALEATE 10 MG TABLET (FP) PO SCH (10:36)
[2019-03-12] MEDS: AZITHROMYCIN 250 MG TABLET PO SCH (10:36)
--- NOTE | 2019-03-12 11:47 | PN ---
Progress Note, Physician History of Present Illness: pulmonary alert,comfortable,sob improving - Current Medication List Current Medications: Active Medications Albuterol/Ipratropium (Duoneb -) 1 amp NEB Q6H PRN PRN Reason: SHORTNESS OF BREATH Albuterol/Ipratropium (Duoneb -) 1 amp NEB RQID [facility] Last Admin: 03/12/19 07:48 Dose: Not Given Amlodipine Besylate (Norvasc -) 5 mg PO DAILY [facility] Last Admin: 03/12/19 10:35 Dose: 5 mg Azithromycin (Zithromax -) 250 mg PO DAILY [facility] Last Admin: 03/12/19 10:36 Dose: 250 mg Digoxin (Lanoxin -) 0.125 mg PO DAILY [facility] Last Admin: 03/12/19 10:35 Dose: 0.125 mg Enalapril Maleate (Vasotec -) 20 mg PO DAILY [facility] Last Admin: 03/12/19 10:36 Dose: 20 mg Furosemide (Lasix -) 20 mg PO DAILY [facility] Last Admin: 03/12/19 10:35 Dose: 20 mg Heparin Sodium (Porcine) (Heparin -) 5,000 unit SQ BID [facility] Last Admin: 03/12/19 10:34 Dose: 5,000 unit Levothyroxine Sodium (Synthroid -) 25 mcg PO DAILY@0700 [facility] Last Admin: 03/12/19 06:17 Dose: 25 mcg Methotrexate (Mexate -) 20 mg PO Mo@1000 [facility] Methylprednisolone Sodium Succinate (Solu-Medrol -) 40 mg IVPUSH Q8H-IV [facility] Last Admin: 03/12/19 10:34 Dose: 40 mg Metoprolol Succinate (Toprol Xl -) 50 mg PO DAILY [facility] Last Admin: 03/12/19 10:36 Dose: 50 mg Mirtazapine (Remeron -) 15 mg PO HS [facility] Last Admin: 03/11/19 22:04 Dose: 15 mg Pantoprazole Sodium (Protonix -) 40 mg PO DAILY [facility] Last Admin: 03/12/19 10:35 Dose: 40 mg - Objective Vital Signs: Vital Signs Temperature 97.7 F 03/12/19 06:00 Pulse Rate 85 03/12/19 10:35 Respiratory Rate 18 03/12/19 06:00 Blood Pressure 153/58 L 03/12/19 06:00 O2 Sat by Pulse Oximetry (%) 96 03/11/19 21:00 Constitutional: Yes: Well Nourished, Calm Eyes: Yes: WNL HENT: Yes: WNL Neck: Yes: WNL Cardiovascular: Yes: Regular Rate and Rhythm, S1, S2 Respiratory: Yes: Rales (bibasilar crackles) Gastrointestinal: Yes: Normal Bowel Sounds, Soft Extremities: Yes: WNL Edema: Yes Labs: CBC, BMP Problem List - Problems (1) Dementia Code(s): F03.90 - UNSPECIFIED DEMENTIA WITHOUT BEHAVIORAL DISTURBANCE (2) SOB (shortness of breath) Code(s): R06.02 - SHORTNESS OF BREATH (3) CAD (coronary artery disease) Code(s): I25.10 - ATHSCL HEART DISEASE OF [place] CORONARY ARTERY W/O ANG PCTRS (4) COPD exacerbation Code(s): J44.1 - CHRONIC OBSTRUCTIVE PULMONARY DISEASE W (ACUTE) EXACERBATION (5) Cough Code(s): R05 - COUGH (6) Electrolyte abnormality Code(s): E87.8 - OTH DISORDERS OF ELECTROLYTE AND FLUID BALANCE, NEC (7) Hyperlipidemia Code(s): E78.5 - HYPERLIPIDEMIA, UNSPECIFIED (8) Hypertension Code(s): I10 - ESSENTIAL (PRIMARY) HYPERTENSION (9) Rheumatoid arthritis Code(s): M06.9 - RHEUMATOID ARTHRITIS, UNSPECIFIED Assessment/Plan IMP DYSPNEA IMPROVING COPD EXACERBATION IMPROVING CHF SEVERE LV SYSTOLIC DYSFUNCTION PULMONARY HTN THORACIC AORTIC ANEURYSM AAA DEMENTIA HLD HTN RA PLAN INHALED BRONCHODILATORS O2 TAPER MEDROL LASIX F/U CHEST X-RAYS DAILY WT DR LOVELACE Problem List - Problems (1) Dementia Code(s): F03.90 - UNSPECIFIED DEMENTIA WITHOUT BEHAVIORAL DISTURBANCE (2) SOB (shortness of breath) Code(s): R06.02 - SHORTNESS OF BREATH (3) CAD (coronary artery disease) Code(s): I25.10 - ATHSCL HEART DISEASE OF [place] CORONARY ARTERY W/O ANG PCTRS (4) COPD exacerbation Code(s): J44.1 - CHRONIC OBSTRUCTIVE PULMONARY DISEASE W (ACUTE) EXACERBATION (5) Cough Code(s): R05 - COUGH (6) Electrolyte abnormality Code(s): E87.8 - OTH DISORDERS OF ELECTROLYTE AND FLUID BALANCE, NEC (7) Hyperlipidemia Code(s): E78.5 - HYPERLIPIDEMIA, UNSPECIFIED (8) Hypertension Code(s): I10 - ESSENTIAL (PRIMARY) HYPERTENSION (9) Rheumatoid arthritis Code(s): M06.9 - RHEUMATOID ARTHRITIS, UNSPECIFIED
[2019-03-12] MEDS ORDERED: methylPREDNISolone NA SUCC 40 MG/1 ML VIAL IVPUSH SCH (12:00)
--- NOTE | 2019-03-12 15:54 | PN ---
Progress Note, Physician Chief Complaint: COPD Exacerbation CHF History of Present Illness: Previous notes and events reviewed awake and alert NAD sts breathing improving denies chest pain or SOB - Current Medication List Current Medications: Active Medications Albuterol/Ipratropium (Duoneb -) 1 amp NEB Q6H PRN PRN Reason: SHORTNESS OF BREATH Albuterol/Ipratropium (Duoneb -) 1 amp NEB RQID [facility] Last Admin: 03/12/19 12:05 Dose: Not Given Amlodipine Besylate (Norvasc -) 5 mg PO DAILY [facility] Last Admin: 03/12/19 10:35 Dose: 5 mg Azithromycin (Zithromax -) 250 mg PO DAILY [facility] Last Admin: 03/12/19 10:36 Dose: 250 mg Digoxin (Lanoxin -) 0.125 mg PO DAILY [facility] Last Admin: 03/12/19 10:35 Dose: 0.125 mg Enalapril Maleate (Vasotec -) 20 mg PO DAILY [facility] Last Admin: 03/12/19 10:36 Dose: 20 mg Furosemide (Lasix -) 20 mg PO DAILY [facility] Last Admin: 03/12/19 10:35 Dose: 20 mg Heparin Sodium (Porcine) (Heparin -) 5,000 unit SQ BID [facility] Last Admin: 03/12/19 10:34 Dose: 5,000 unit Levothyroxine Sodium (Synthroid -) 25 mcg PO DAILY@0700 [facility] Last Admin: 03/12/19 06:17 Dose: 25 mcg Methotrexate (Mexate -) 20 mg PO Mo@1000 [facility] Methylprednisolone Sodium Succinate (Solu-Medrol -) 40 mg IVPUSH BID [facility] Metoprolol Succinate (Toprol Xl -) 50 mg PO DAILY [facility] Last Admin: 03/12/19 10:36 Dose: 50 mg Mirtazapine (Remeron -) 15 mg PO HS [facility] Last Admin: 03/11/19 22:04 Dose: 15 mg Pantoprazole Sodium (Protonix -) 40 mg PO DAILY [facility] Last Admin: 03/12/19 10:35 Dose: 40 mg - Objective Vital Signs: Vital Signs Temperature 98.3 F 03/12/19 15:10 Pulse Rate 93 H 03/12/19 15:10 Respiratory Rate 20 03/12/19 15:10 Blood Pressure 133/63 03/12/19 15:10 O2 Sat by Pulse Oximetry (%) 96 03/11/19 21:00 Constitutional: Yes: No Distress, Calm Eyes: Yes: Conjunctiva Clear HENT: Yes: Atraumatic Cardiovascular: Yes: Regular Rate and Rhythm Respiratory: Yes: Regular, Diminished Gastrointestinal: Yes: Normal Bowel Sounds, Soft Musculoskeletal: Yes: WNL Extremities: Yes: WNL Edema: No Neurological: Yes: Alert, Oriented Psychiatric: Yes: Alert, Oriented Labs: CBC, BMP 03/11/19 06:10 03/11/19 06:10 INR, PTT INR 1.19 (0.83-1.09) H 03/07/19 18:50 Microbiology 03/08/19 19:25 Blood - Peripheral Venous Blood Culture - Preliminary NO GROWTH OBTAINED AFTER 72 HOURS, INCUBATION TO CONTINUE FOR 2 DAYS. 03/08/19 19:25 Blood - Peripheral Venous Blood Culture - Preliminary NO GROWTH OBTAINED AFTER 72 HOURS, INCUBATION TO CONTINUE FOR 2 DAYS. 03/07/19 18:50 Blood - Peripheral Venous Blood Culture - Preliminary NO GROWTH OBTAINED AFTER 96 HOURS, INCUBATION TO CONTINUE FOR 1 DAYS. 03/07/19 18:50 Blood - Peripheral Venous Blood Culture - Final Staph Hominis Sub Sp Hominis 03/07/19 19:55 Urine - Urine - Catheterized Urine Culture - Final NO GROWTH OBTAINED Problem List - Problems (1) CHF exacerbation Assessment/Plan: -Cardiology on board -Furosemide -daily weights -1L fluid restriction -strict I&Os -Digoxin Code(s): I50.9 - HEART FAILURE, UNSPECIFIED (2) Dementia Code(s): F03.90 - UNSPECIFIED DEMENTIA WITHOUT BEHAVIORAL DISTURBANCE (3) Fever Assessment/Plan: -tylenol prn for temp >100F -afebrile -monitor temp -BC and UC neg -ID on board Code(s): R50.9 - FEVER, UNSPECIFIED Qualifiers: Fever type: unspecified Qualified Code(s): R50.9 - Fever, unspecified (4) Hypothyroid Assessment/Plan: -Levothyroxine Code(s): E03.9 - HYPOTHYROIDISM, UNSPECIFIED (5) SOB (shortness of breath) Assessment/Plan: -Pulm on board -keep SpO2 >90% -O2 via NC -CXR on admission shows emphysematous changes, repeat CXR from 03/10 shows no acute chest pathology -bronchodilators -IV medrol Code(s): R06.02 - SHORTNESS OF BREATH (6) COPD exacerbation Assessment/Plan: -Pulm on board -keep SpO2 >90% -O2 via NC -CXR on admission shows emphysematous changes, repeat CXR from 03/10 shows no acute chest pathology -bronchodilators -IV medrol Code(s): J44.1 - CHRONIC OBSTRUCTIVE PULMONARY DISEASE W (ACUTE) EXACERBATION (7) Hypertension Assessment/Plan: -Norvasc, Metoprolol, VAsotec -low Na diet Code(s): I10 - ESSENTIAL (PRIMARY) HYPERTENSION Assessment/Plan see problem list dvt ppx
[2019-03-12] MEDS: MIRTAZAPINE 15 MG TABLET (FP) PO SCH (21:28)
[2019-03-13] MEDS: LEVOTHYROXINE NA 25 MCG TABLET (FP) PO SCH (06:22)
[2019-03-13] MEDS: ALBUTEROL SO4 2.5/IPRATROPIUM 0.5 INH SOL 3 ML VIAL.NEB. NEB SCH ×2 (07:25→11:57)
[2019-03-13 07:36] LABS: HEMATOCRIT 39.3 % (32.4-45.2); HEMOGLOBIN 13.2 GM/dL (10.7-15.3); MCH 28.9 pg (25.7-33.7); MCHC 33.6 g/dl (32.0-36.0); MEAN CELL VOLUME 86.1 fl (80-96); MEAN PLT VOLUME 7.2 fl (7.5-11.1); PLATELET COUNT 368 K/MM3 (134-434); RBC 4.56 M/mm3 (3.60-5.2); RDW 15.9 % (11.6-15.6)
[2019-03-13 07:58] LABS: ALBUMIN 2.3 g/dl (3.4-5.0); BILIRUBIN,TOTAL 0.4 mg/dL (0.2-1); BLOOD UREA NITROGEN 24.3 mg/dL (7-18); CALCIUM 8.7 mg/dL (8.5-10.1); CREATININE 0.7 mg/dL (0.55-1.3); POTASSIUM 3.8 mmol/L (3.5-5.1); TOT PROT 5.6 g/dl (6.4-8.2)
[2019-03-13] MEDS ORDERED: PT OWN MED DRAWER 7, Y5N ONE (09:29)
[2019-03-13] MEDS ORDERED: METHOTREXATE 2.5 MG TABLET PO SCH (10:00)
[2019-03-13] MEDS: PANTOPRAZOLE 40 MG TABLET (FP) PO SCH (10:19)
[2019-03-13] MEDS: ENALAPRIL MALEATE 10 MG TABLET (FP) PO SCH (10:19)
[2019-03-13] MEDS: AZITHROMYCIN 250 MG TABLET PO SCH (10:19)
[2019-03-13] MEDS: FUROSEMIDE 20 MG TABLET (FP) PO SCH (10:19)
[2019-03-13] MEDS: amLODIPine BESYLATE 5 MG TABLET (FP) PO SCH (10:19)
[2019-03-13] MEDS: methylPREDNISolone NA SUCC 40 MG/1 ML VIAL IVPUSH SCH (10:20)
[2019-03-13] MEDS: HEPARIN NA (PORCINE) 5,000 UNITS/ML 1ML VIAL SQ SCH ×2 (10:20→22:04)
[2019-03-13] MEDS: DIGOXIN 0.125 MG TABLET (FP) PO SCH (10:20)
--- NOTE | 2019-03-13 11:32 | PN ---
Progress Note, Physician Chief Complaint: seen and examined Denies CP or SOB today. History of Present Illness: BP trend reviewed, WNL Being treated for AE COPD and chronic systolic CHF/ PHTN - Current Medication List Current Medications: Active Medications Albuterol/Ipratropium (Duoneb -) 1 amp NEB RQID [facility] Last Admin: 03/13/19 07:25 Dose: Not Given Amlodipine Besylate (Norvasc -) 5 mg PO DAILY [facility] Last Admin: 03/13/19 10:19 Dose: 5 mg Azithromycin (Zithromax -) 250 mg PO DAILY [facility] Last Admin: 03/13/19 10:19 Dose: 250 mg Digoxin (Lanoxin -) 0.125 mg PO DAILY [facility] Last Admin: 03/13/19 10:20 Dose: 0.125 mg Enalapril Maleate (Vasotec -) 20 mg PO DAILY [facility] Last Admin: 03/13/19 10:19 Dose: 20 mg Furosemide (Lasix -) 20 mg PO DAILY [facility] Last Admin: 03/13/19 10:19 Dose: 20 mg Heparin Sodium (Porcine) (Heparin -) 5,000 unit SQ BID [facility] Last Admin: 03/13/19 10:20 Dose: 5,000 unit Levothyroxine Sodium (Synthroid -) 25 mcg PO DAILY@0700 [facility] Last Admin: 03/13/19 06:22 Dose: 25 mcg Methotrexate (Mexate -) 20 mg PO Mo@1000 [facility] Last Admin: 03/13/19 10:20 Dose: 20 mg Methylprednisolone Sodium Succinate (Solu-Medrol -) 40 mg IVPUSH BID [facility] Last Admin: 03/13/19 10:20 Dose: 40 mg Metoprolol Succinate (Toprol Xl -) 50 mg PO DAILY [facility] Last Admin: 03/13/19 10:19 Dose: 50 mg Mirtazapine (Remeron -) 15 mg PO HS [facility] Last Admin: 03/12/19 21:28 Dose: 15 mg Pantoprazole Sodium (Protonix -) 40 mg PO DAILY [facility] Last Admin: 03/13/19 10:19 Dose: 40 mg - Objective Vital Signs: Vital Signs Temperature 98.3 F 03/13/19 10:00 Pulse Rate 88 03/13/19 10:20 Respiratory Rate 20 03/13/19 10:00 Blood Pressure 139/63 03/13/19 10:00 O2 Sat by Pulse Oximetry (%) 96 03/11/19 21:00 Constitutional: Yes: No Distress, Calm Cardiovascular: Yes: Regular Rate and Rhythm Respiratory: Yes: Other (decreased breath sounds b/l, no rales, no active wheezing) Gastrointestinal: Yes: Soft Edema: Yes Edema: LLE: 1+, RLE: 1+ Peripheral Pulses WNL: Yes Neurological: Yes: Alert, Oriented ...Motor Strength: WNL Labs: CBC, BMP 03/13/19 06:45 03/13/19 06:45 INR, PTT INR 1.19 (0.83-1.09) H 03/07/19 18:50 Assessment/Plan DATA: echo 09/04: nl LV/EF, no RWMA. nl RV. nl LA. mild AI. no RVSP. 4 cm ao root, 4.1 cm ascending. echo 02/2019 tds, LV function severely reduced, severe global hypokinesis of LV, RV not well visualized, mild MR, mod AR mibi 04/2013: mod septal ischemia per report CXR: emphysematous changes, no congestion IMP/ PLAN: 1. Shortness of breath, COPD - pulm consulted, treating for COPD exacerbation - BNP elevated however CXR no congestion, appears euvolemic - cont home PO lasix - trop neg x 2, EKG no ischemic changes - unlikely ACS 2. fever, UTI: - manage per primary 3. Chronic systolic HF: EF severely reduced - appears euvolemic, per has episodes of edema at home when not taking lasix - may be in setting of tachycardia - on admission HR 120s, was not taking digoxin or bb consistently at home - discussed with patient and importance of med compliance - repeat study as outpatient with improved HR control - BNP elevated, however no congestion on CXR, appears euvolemic - continue PO lasix - cont bb, ACEI, dig -EF severely reduced, may be due to poor compliance with PO meds. Agree with repeating study as outpatient after period of compliance and consideration to repeat ischemic evaluation. 4. Multifocal atrial tach (MAT): at times uncontrolled, may be cause of LV dysfx (see above) -sec to severe COPD - cont digoxin, bb - HR control improved 5. HTN: - cont home meds 6. HLD: -cont home statin 7. Possible CAD: -prior mibi 2012 reported low-risk area of (septal) ischemia and has been managed medically with no angina sx's -pt with extensive atherosclerotic aorta vascular disease -now with severe LV dysfx, which may be rate related. However, would strongly consider repeating ischemic w/u when acute COPD exacerbation resolved -cont home statin, bb, randall. -ASA held in recent past when developed NSAID-related PUD (dx'd on EGD) 8. WHO 2 pulm HTN: -marked PA dilation noted on prior CTA chest -signif desats to 80s% on 6MWT--declined O2 due to refusal to stop smoking 9. Thoracic and abdominal aorta aneurysms: -known ascending aorta aneurysm 4.8 cm, and descending aorta aneurysm 4.0 cm, both unchanged on 01/02 study -small infrarenal AAA 3.2cm, increased vs 2.7 cm in 2016--pt has refused (any) f /u MD office visits or imaging since then--would repeat surveillance imaging while she is here if she allows -would be high risk (maybe not prohibitive) for open repair in any case ( ascending aorta not amenable to endovascular approach) 10. Smoking: -repeatedly counselled cessation benefits and available modalities as outpt--pt has declined 11. 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
--- NOTE | 2019-03-13 12:40 | PN ---
Progress Note, Physician History of Present Illness: pulmonary alert,comfortable,-sob,-cp,-cough - Current Medication List Current Medications: Active Medications Albuterol/Ipratropium (Duoneb -) 1 amp NEB RQID [facility] Last Admin: 03/13/19 11:57 Dose: Not Given Amlodipine Besylate (Norvasc -) 5 mg PO DAILY [facility] Last Admin: 03/13/19 10:19 Dose: 5 mg Azithromycin (Zithromax -) 250 mg PO DAILY [facility] Last Admin: 03/13/19 10:19 Dose: 250 mg Digoxin (Lanoxin -) 0.125 mg PO DAILY [facility] Last Admin: 03/13/19 10:20 Dose: 0.125 mg Enalapril Maleate (Vasotec -) 20 mg PO DAILY [facility] Last Admin: 03/13/19 10:19 Dose: 20 mg Furosemide (Lasix -) 20 mg PO DAILY [facility] Last Admin: 03/13/19 10:19 Dose: 20 mg Heparin Sodium (Porcine) (Heparin -) 5,000 unit SQ BID [facility] Last Admin: 03/13/19 10:20 Dose: 5,000 unit Levothyroxine Sodium (Synthroid -) 25 mcg PO DAILY@0700 [facility] Last Admin: 03/13/19 06:22 Dose: 25 mcg Methotrexate (Mexate -) 20 mg PO Mo@1000 [facility] Last Admin: 03/13/19 10:20 Dose: 20 mg Methylprednisolone Sodium Succinate (Solu-Medrol -) 40 mg IVPUSH BID [facility] Last Admin: 03/13/19 10:20 Dose: 40 mg Metoprolol Succinate (Toprol Xl -) 50 mg PO DAILY [facility] Last Admin: 03/13/19 10:19 Dose: 50 mg Mirtazapine (Remeron -) 15 mg PO HS [facility] Last Admin: 03/12/19 21:28 Dose: 15 mg Pantoprazole Sodium (Protonix -) 40 mg PO DAILY [facility] Last Admin: 03/13/19 10:19 Dose: 40 mg - Objective Vital Signs: Vital Signs Temperature 98.3 F 03/13/19 10:00 Pulse Rate 88 03/13/19 10:20 Respiratory Rate 20 03/13/19 10:00 Blood Pressure 139/63 03/13/19 10:00 O2 Sat by Pulse Oximetry (%) 96 03/11/19 21:00 Constitutional: Yes: Well Nourished, Calm Eyes: Yes: WNL HENT: Yes: WNL Neck: Yes: WNL Cardiovascular: Yes: Regular Rate and Rhythm, S1, S2 Respiratory: Yes: CTA Bilaterally Gastrointestinal: Yes: Normal Bowel Sounds, Soft Extremities: Yes: WNL Edema: Yes Labs: CBC, BMP 03/13/19 06:45 03/13/19 06:45 INR, PTT INR 1.19 (0.83-1.09) H 03/07/19 18:50 Problem List - Problems (1) Dementia Code(s): F03.90 - UNSPECIFIED DEMENTIA WITHOUT BEHAVIORAL DISTURBANCE (2) SOB (shortness of breath) Code(s): R06.02 - SHORTNESS OF BREATH (3) CAD (coronary artery disease) Code(s): I25.10 - ATHSCL HEART DISEASE OF [place] CORONARY ARTERY W/O ANG PCTRS (4) COPD exacerbation Code(s): J44.1 - CHRONIC OBSTRUCTIVE PULMONARY DISEASE W (ACUTE) EXACERBATION (5) Cough Code(s): R05 - COUGH (6) Electrolyte abnormality Code(s): E87.8 - OTH DISORDERS OF ELECTROLYTE AND FLUID BALANCE, NEC (7) Hyperlipidemia Code(s): E78.5 - HYPERLIPIDEMIA, UNSPECIFIED (8) Hypertension Code(s): I10 - ESSENTIAL (PRIMARY) HYPERTENSION (9) Rheumatoid arthritis Code(s): M06.9 - RHEUMATOID ARTHRITIS, UNSPECIFIED Assessment/Plan IMP DYSPNEA IMPROVING COPD EXACERBATION IMPROVING CHF SEVERE LV SYSTOLIC DYSFUNCTION PULMONARY HTN THORACIC AORTIC ANEURYSM AAA DEMENTIA HLD HTN RA PLAN INHALED BRONCHODILATORS O2 PREDNISONE 40MG DAILY IN AM LASIX F/U CHEST X-RAYS DAILY WT DR LOVELACE Problem List - Problems (1) Dementia Code(s): F03.90 - UNSPECIFIED DEMENTIA WITHOUT BEHAVIORAL DISTURBANCE (2) SOB (shortness of breath) Code(s): R06.02 - SHORTNESS OF BREATH (3) CAD (coronary artery disease) Code(s): I25.10 - ATHSCL HEART DISEASE OF [place] CORONARY ARTERY W/O ANG PCTRS (4) COPD exacerbation Code(s): J44.1 - CHRONIC OBSTRUCTIVE PULMONARY DISEASE W (ACUTE) EXACERBATION (5) Cough Code(s): R05 - COUGH (6) Electrolyte abnormality Code(s): E87.8 - OTH DISORDERS OF ELECTROLYTE AND FLUID BALANCE, NEC (7) Hyperlipidemia Code(s): E78.5 - HYPERLIPIDEMIA, UNSPECIFIED (8) Hypertension Code(s): I10 - ESSENTIAL (PRIMARY) HYPERTENSION (9) Rheumatoid arthritis Code(s): M06.9 - RHEUMATOID ARTHRITIS, UNSPECIFIED
--- NOTE | 2019-03-13 13:06 | PN ---
Progress Note, Physician Chief Complaint: patient seen and examined breathing is better - Current Medication List Current Medications: Active Medications Albuterol/Ipratropium (Duoneb -) 1 amp NEB RQID [facility] Last Admin: 03/13/19 11:57 Dose: Not Given Amlodipine Besylate (Norvasc -) 5 mg PO DAILY [facility] Last Admin: 03/13/19 10:19 Dose: 5 mg Azithromycin (Zithromax -) 250 mg PO DAILY [facility] Last Admin: 03/13/19 10:19 Dose: 250 mg Digoxin (Lanoxin -) 0.125 mg PO DAILY [facility] Last Admin: 03/13/19 10:20 Dose: 0.125 mg Enalapril Maleate (Vasotec -) 20 mg PO DAILY [facility] Last Admin: 03/13/19 10:19 Dose: 20 mg Furosemide (Lasix -) 20 mg PO DAILY [facility] Last Admin: 03/13/19 10:19 Dose: 20 mg Heparin Sodium (Porcine) (Heparin -) 5,000 unit SQ BID [facility] Last Admin: 03/13/19 10:20 Dose: 5,000 unit Levothyroxine Sodium (Synthroid -) 25 mcg PO DAILY@0700 [facility] Last Admin: 03/13/19 06:22 Dose: 25 mcg Methotrexate (Mexate -) 20 mg PO Mo@1000 [facility] Last Admin: 03/13/19 10:20 Dose: 20 mg Methylprednisolone Sodium Succinate (Solu-Medrol -) 40 mg IVPUSH DAILY [facility] Metoprolol Succinate (Toprol Xl -) 50 mg PO DAILY [facility] Last Admin: 03/13/19 10:19 Dose: 50 mg Mirtazapine (Remeron -) 15 mg PO HS [facility] Last Admin: 03/12/19 21:28 Dose: 15 mg Pantoprazole Sodium (Protonix -) 40 mg PO DAILY [facility] Last Admin: 03/13/19 10:19 Dose: 40 mg - Objective Vital Signs: Vital Signs Temperature 98.3 F 03/13/19 10:00 Pulse Rate 88 03/13/19 10:20 Respiratory Rate 20 03/13/19 10:00 Blood Pressure 139/63 03/13/19 10:00 O2 Sat by Pulse Oximetry (%) 96 03/11/19 21:00 Constitutional: Yes: Calm Cardiovascular: Yes: Regular Rate and Rhythm, S1, S2 Respiratory: Yes: CTA Bilaterally Gastrointestinal: Yes: Normal Bowel Sounds, Soft Edema: No Neurological: Yes: Alert, Oriented Labs: CBC, BMP 03/13/19 06:45 03/13/19 06:45 INR, PTT INR 1.19 (0.83-1.09) H 03/07/19 18:50 Problem List - Problems (1) Fever Assessment/Plan: iv abx rocephin stopped on zithromax Microbiology 03/08/19 19:25 Blood - Peripheral Venous Blood Culture - Preliminary NO GROWTH OBTAINED AFTER 24 HOURS, INCUBATION TO CONTINUE FOR 4 DAYS. 03/08/19 19:25 Blood - Peripheral Venous Blood Culture - Preliminary NO GROWTH OBTAINED AFTER 24 HOURS, INCUBATION TO CONTINUE FOR 4 DAYS. Microbiology 03/07/19 18:50 Blood - Peripheral Venous Blood Culture - Preliminary Staphylococcus Coagulase Neg got vancomcycin one dose for above culture repeat culture was negative Code(s): R50.9 - FEVER, UNSPECIFIED Qualifiers: Fever type: unspecified Qualified Code(s): R50.9 - Fever, unspecified (2) SOB (shortness of breath) Assessment/Plan: iv medrol daily today inhalers leukocytosis secondary to steroids Code(s): R06.02 - SHORTNESS OF BREATH (3) Hypothyroid Assessment/Plan: synthroid tsh normal Code(s): E03.9 - HYPOTHYROIDISM, UNSPECIFIED
[2019-03-13] MEDS: MIRTAZAPINE 15 MG TABLET (FP) PO SCH (22:02)
[2019-03-14] MEDS: LEVOTHYROXINE NA 25 MCG TABLET (FP) PO SCH (06:39)
--- NOTE | 2019-03-14 08:27 | DS ---
Physical Examination Vital Signs: Vital Signs Temperature 97.7 F 03/14/19 06:00 Pulse Rate 101 H 03/14/19 06:00 Respiratory Rate 18 03/14/19 06:00 Blood Pressure 135/66 03/14/19 06:00 O2 Sat by Pulse Oximetry (%) 97 03/13/19 21:00 Cardiovascular: Yes: S1, S2 Respiratory: Yes: Regular, CTA Bilaterally Gastrointestinal: Yes: Normal Bowel Sounds, Soft Labs: CBC, BMP 03/13/19 06:45 03/13/19 06:45 Discharge Summary Reason For Visit: SHORTNESS OF BREATH,SEPSIS Current Active Problems CHF exacerbation (Acute) Dementia (Acute) Fever (Acute) Hypothyroid (Acute) SOB (shortness of breath) (Acute) Sepsis (Acute) UTI (urinary tract infection) (Acute) Hospital Course: - Problems (1) Fever Assessment/Plan: iv abx rocephin stopped on zithromax Microbiology 03/08/19 19:25 Blood - Peripheral Venous Blood Culture - Preliminary NO GROWTH OBTAINED AFTER 24 HOURS, INCUBATION TO CONTINUE FOR 4 DAYS. 03/08/19 19:25 Blood - Peripheral Venous Blood Culture - Preliminary NO GROWTH OBTAINED AFTER 24 HOURS, INCUBATION TO CONTINUE FOR 4 DAYS. Microbiology 03/07/19 18:50 Blood - Peripheral Venous Blood Culture - Preliminary Staphylococcus Coagulase Neg got vancomcycin one dose for above culture repeat culture was negative Code(s): R50.9 - FEVER, UNSPECIFIED Qualifiers: Fever type: unspecified Qualified Code(s): R50.9 - Fever, unspecified (2) SOB (shortness of breath) Assessment/Plan: iv medrol daily to po prednisone inhalers leukocytosis secondary to steroids Code(s): R06.02 - SHORTNESS OF BREATH (3) Hypothyroid Assessment/Plan: synthroid tsh normal Code(s): E03.9 - HYPOTHYROIDISM, UNSPECIFIED Condition: Stable - Instructions Referrals: Devin Fajardo MD [Primary Care Provider] - Disposition: [facility]/HOME HEALTH CARE - Home Medications Comprehensive Discharge Medication List: Ambulatory Orders Amlodipine Besylate 5 mg PO DAILY 03/07/19 Digoxin [Lanoxin -] 0.125 mg PO DAILY 03/07/19 Furosemide [Lasix] 20 mg PO DAILY 03/07/19 Levothyroxine [Synthroid -] 0 mcg PO DAILY 03/07/19 Ondansetron [Zofran -] 4 mg PO PRN 03/07/19 Pantoprazole Sodium 40 mg PO DAILY 03/07/19 Albuterol 2.5/Ipratropium 0.5 [Duoneb -] 1 amp NEB RQID amp 03/14/19 Azithromycin [Zithromax 250mg Tablets -] 250 mg PO DAILY #5 tablet 03/14/19 Enalapril Maleate [Vasotec -] 20 mg PO DAILY #60 tablet 03/14/19 Methotrexate [Mexate -] 20 mg PO Mo@1000 tablet 03/14/19 Metoprolol Succinate [Toprol XL -] 50 mg PO DAILY #30 tab.sr.24h 03/14/19 Mirtazapine [Remeron -] 15 mg PO HS #30 tablet 03/14/19 predniSONE [Deltasone -] 10 mg PO DAILY #100 tablet 03/14/19
[2019-03-14] MEDS ORDERED: PT OWN MED DRAWER 7, Y5N ONE (08:42)
[2019-03-14] MEDS: FUROSEMIDE 20 MG TABLET (FP) PO SCH (09:00)
[2019-03-14] MEDS: PANTOPRAZOLE 40 MG TABLET (FP) PO SCH (09:00)
[2019-03-14] MEDS: AZITHROMYCIN 250 MG TABLET PO SCH (09:00)
[2019-03-14] MEDS: amLODIPine BESYLATE 5 MG TABLET (FP) PO SCH (09:00)
[2019-03-14] MEDS: DIGOXIN 0.125 MG TABLET (FP) PO SCH (09:00)
[2019-03-14] MEDS: ENALAPRIL MALEATE 10 MG TABLET (FP) PO SCH (09:00)
[2019-03-14] MEDS: HEPARIN NA (PORCINE) 5,000 UNITS/ML 1ML VIAL SQ SCH (09:01)
[2019-03-14] MEDS ORDERED: predniSONE 20 MG TABLET (UD) PO SCH ×2 (10:00)
[2019-03-14] MEDS ORDERED: methylPREDNISolone NA SUCC 40 MG/1 ML VIAL IVPUSH SCH (10:00)
--- NOTE | 2019-03-14 13:01 | PN ---
Progress Note (short form) - Note Progress Note: PULMONARY Denies shortness of breath, cough or wheezing. Vital Signs Period Temp Pulse Resp BP Sys/[place] Pulse Ox Last 24 Hr 97.7 F-98.6 F 81-101 18-19 115-147/51-80 95-97 Gen: NAD at rest Heart: RRR Lung: distant breath sounds Abd: soft, nontender Ext: trace distal edema CBC, BMP 03/13/19 06:45 03/13/19 06:45 Active Medications Amlodipine Besylate (Norvasc -) 5 mg PO DAILY [facility] Last Admin: 03/14/19 09:00 Dose: 5 mg Azithromycin (Zithromax -) 250 mg PO DAILY [facility] Last Admin: 03/14/19 09:00 Dose: 250 mg Digoxin (Lanoxin -) 0.125 mg PO DAILY [facility] Last Admin: 03/14/19 09:00 Dose: 0.125 mg Enalapril Maleate (Vasotec -) 20 mg PO DAILY [facility] Last Admin: 03/14/19 09:00 Dose: 20 mg Furosemide (Lasix -) 20 mg PO DAILY [facility] Last Admin: 03/14/19 09:00 Dose: 20 mg Heparin Sodium (Porcine) (Heparin -) 5,000 unit SQ BID [facility] Last Admin: 03/14/19 09:01 Dose: 5,000 unit Levothyroxine Sodium (Synthroid -) 25 mcg PO DAILY@0700 [facility] Last Admin: 03/14/19 06:39 Dose: 25 mcg Methotrexate (Mexate -) 20 mg PO Mo@1000 [facility] Last Admin: 03/13/19 10:20 Dose: 20 mg Metoprolol Succinate (Toprol Xl -) 50 mg PO DAILY [facility] Last Admin: 03/14/19 09:00 Dose: 50 mg Mirtazapine (Remeron -) 15 mg PO HS [facility] Last Admin: 03/13/19 22:02 Dose: 15 mg Pantoprazole Sodium (Protonix -) 40 mg PO DAILY [facility] Last Admin: 03/14/19 09:00 Dose: 40 mg Prednisone (Deltasone -) 40 mg PO DAILY [facility] Last Admin: 03/14/19 09:00 Dose: 40 mg A/P Acute COPD Exacerbation Severe LV Systolic Dysfunction Pulmonary HTN HTN Rheumatoid Arthritis MAT Aortic Aneurysms Hypothyroidism Smoker - prednisone taper - inhaled bronchodilators - O2 to keep SpO2 >90% - on empiric antibiotics - smoking cessation - DVT prophylaxis - d/c planning
--- NOTE | 2019-03-14 13:07 | PN ---
Progress Note (short form) - Note Progress Note: no cp, palps, dizziness, dyspnea Current Medications Amlodipine Besylate (Norvasc -) 5 mg PO DAILY [facility] Last Admin: 03/14/19 09:00 Dose: 5 mg Azithromycin (Zithromax -) 250 mg PO DAILY [facility] Last Admin: 03/14/19 09:00 Dose: 250 mg Digoxin (Lanoxin -) 0.125 mg PO DAILY [facility] Last Admin: 03/14/19 09:00 Dose: 0.125 mg Enalapril Maleate (Vasotec -) 20 mg PO DAILY [facility] Last Admin: 03/14/19 09:00 Dose: 20 mg Furosemide (Lasix -) 20 mg PO DAILY [facility] Last Admin: 03/14/19 09:00 Dose: 20 mg Heparin Sodium (Porcine) (Heparin -) 5,000 unit SQ BID [facility] Last Admin: 03/14/19 09:01 Dose: 5,000 unit Levothyroxine Sodium (Synthroid -) 25 mcg PO DAILY@0700 [facility] Last Admin: 03/14/19 06:39 Dose: 25 mcg Methotrexate (Mexate -) 20 mg PO Mo@1000 [facility] Last Admin: 03/13/19 10:20 Dose: 20 mg Metoprolol Succinate (Toprol Xl -) 50 mg PO DAILY [facility] Last Admin: 03/14/19 09:00 Dose: 50 mg Mirtazapine (Remeron -) 15 mg PO HS [facility] Last Admin: 03/13/19 22:02 Dose: 15 mg Pantoprazole Sodium (Protonix -) 40 mg PO DAILY [facility] Last Admin: 03/14/19 09:00 Dose: 40 mg Prednisone (Deltasone -) 40 mg PO DAILY [facility] Last Admin: 03/14/19 09:00 Dose: 40 mg Vital Signs Period Temp Pulse Resp BP Sys/[place] Pulse Ox Last 24 Hr 97.7 F-98.6 F 81-101 18-19 115-147/51-80 95-97 Constitutional: Yes: No Distress, Calm Cardiovascular: Yes: Regular Rate and Rhythm Respiratory: Yes: Other (decreased breath sounds b/l, no rales, no active wheezing) Gastrointestinal: Yes: Soft Edema: Yes Edema: LLE: 1+, RLE: 1+ Peripheral Pulses WNL: Yes Neurological: Yes: Alert, Oriented no jaundice, diaphoresis not agitated Assessment/Plan DATA: echo 09/04: nl LV/EF, no RWMA. nl RV. nl LA. mild AI. no RVSP. 4 cm ao root, 4.1 cm ascending. echo 02/2019 tds, LV function severely reduced, severe global hypokinesis of LV, RV not well visualized, mild MR, mod AR mibi 04/2013: mod septal ischemia per report CXR: emphysematous changes, no congestion IMP/ PLAN: 1. Shortness of breath, COPD - pulm consulted, treating for COPD exacerbation - BNP elevated however CXR no congestion, appears euvolemic - cont home PO lasix - trop neg x 2, EKG no ischemic changes - unlikely ACS 2. fever, UTI: - manage per primary 3. Chronic systolic HF: EF severely reduced - appears euvolemic, per has episodes of edema at home when not taking lasix - may be in setting of tachycardia - on admission HR 120s, was not taking digoxin or bb consistently at home - discussed with patient and importance of med compliance - repeat study as outpatient with improved HR control - BNP elevated, however no congestion on CXR, appears euvolemic - continue PO lasix - cont bb, ACEI, dig -EF severely reduced, may be due to poor compliance with PO meds. repeat study as outpatient and consider repeating ischemic evaluation as outpatient 4. Multifocal atrial tach (MAT): at times uncontrolled, may be cause of LV dysfx (see above) -sec to severe COPD - cont digoxin, bb - HR control improved 5. HTN: - cont home meds 6. HLD: -cont home statin 7. Possible CAD: -prior mibi 2012 reported low-risk area of (septal) ischemia and has been managed medically with no angina sx's -pt with extensive atherosclerotic aorta vascular disease -now with severe LV dysfx, which may be rate related. However, would strongly consider repeating ischemic w/u when acute COPD exacerbation resolved -cont home statin, bb, randall -ASA held in recent past when developed NSAID-related PUD (dx'd on EGD) 8. WHO 2 pulm HTN: -marked PA dilation noted on prior CTA chest -signif desats to 80s% on 6MWT--declined O2 due to refusal to stop smoking 9. Thoracic and abdominal aorta aneurysms: -known ascending aorta aneurysm 4.8 cm, and descending aorta aneurysm 4.0 cm, both unchanged on 6/17 study -small infrarenal AAA 3.2cm, increased vs 2.7 cm in 2016--pt has refused (any) f /u MD office visits or imaging since then -would be high risk (maybe not prohibitive) for open repair in any case ( ascending aorta not amenable to endovascular approach) 10. Smoking: -repeatedly counselled cessation benefits and available modalities as outpt--pt has declined 11. 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
[2019-03-14 14:30] VITALS: BP 121/71; PULSE 96; TEMP 98.7
== END 2019-03-14 15:29 | disposition home health service (06) | DRG 191 ==
LOC: JER 17:10 → JERBED 20:28 → J7W 03-08 15:52
PROVIDERS: ADMIT Family Medicine; ATTEND Family Medicine
DX: J44.1 Chronic obstructive pulmonary disease with (acute) exacerbation (principal); I47.1 Supraventricular tachycardia; N39.0 Urinary tract infection, site not specified; I50.22 Chronic systolic (congestive) heart failure; E87.1 Hypo-osmolality and hyponatremia; I27.20 Pulmonary hypertension, unspecified; I71.4 Abdominal aortic aneurysm, without rupture; E78.5 Hyperlipidemia, unspecified; J45.909 Unspecified asthma, uncomplicated; F03.90 Unspecified dementia, unspecified severity, without behavioral disturbance, psychotic disturbance, mood disturbance, and anxiety; K76.0 Fatty (change of) liver, not elsewhere classified; I25.10 Atherosclerotic heart disease of native coronary artery without angina pectoris; I71.2 Thoracic aortic aneurysm, without rupture; R50.9 Fever, unspecified; E03.9 Hypothyroidism, unspecified; D72.829 Elevated white blood cell count, unspecified; I11.0 Hypertensive heart disease with heart failure; G90.9 Disorder of the autonomic nervous system, unspecified; M06.9 Rheumatoid arthritis, unspecified
CPT/HCPCS: 36415; 71046-TC-FY; 80048; 80053; 80162; 81003; 82550; 82803; 83605; 83735; 83880; 84443; 84484; 85025; 85027; 85610; 85730; 87040; 87086; 87186; 93005; 93010; 93306-TC; 94640; 97116-GP; 97161-GP; 99285-25; J0131; J1644; J7030; J8610

== ENCOUNTER 2019-05-12 07:47 | Inpatient (IN) | payer OTHER, BC ==
[2019-05-12] MEDS ORDERED: ACETAMINOPHEN 1000 MG/100 ML VIAL (NON FORMULARY) IVPB ONE (08:17)
[2019-05-12] MEDS ORDERED: SODIUM CHLORIDE 2,204 ML IV ONE (08:17)
--- NOTE | 2019-05-12 08:17 | PDOC ---
History of Present Illness - General Stated Complaint: FALL - History of Present Illness Initial Comments: 05/12/19 08:06 74yo F with PMH of COPD, CHF?, AAA, Thoracic Aneurysm, HTN, HLD, Dementia, Hypothyroidism, RA, Chronic Pain, who presents with altered mental status after being found down at home by her . The patient cannot provide further history 2/2 ams. ROS - limited 2/2 AMS PE GENERAL: Awake, alert HEAD: No signs of trauma, normocephalic, atraumatic EYES: EOMI, sclera anicteric, conjunctiva clear ENT: oropharynx clear without exudates. Moist mucosa NECK: Normal ROM, supple, LUNGS: No distress, speaks full sentences, coarse breath sounds throughout HEART: Regular rate and rhythm, normal S1 and S2, no murmurs, rubs or gallops, peripheral pulses normal and equal bilaterally. ABDOMEN: Soft, + mild lower abdominal tenderness. No guarding, no rebound. No masses EXTREMITIES : Normal inspection, Normal range of motion, + 2+ pitting edema to dorsum of the feet bilat. No clubbing or cyanosis. NEUROLOGICAL: Cranial nerves II through XII grossly intact. Normal speech, no focal sensorimotor deficits SKIN: Warm, Dry, normal turgor, no rashes or lesions noted MDM DDX including but not limited to: sepsis 2/2 urine, lung, abd infection W/U: - sepsis set ordered ED Course: patient septic, tachycadic, febrile EKG with SVT rythm to 170s after fluids, patient broke out of SVT labs signific for leukocytosis, lactic of 3.4 vanc and zosyn dosed patient paroxysmal svt cardizem 30 dosed patient complaining of shortness of breath bipap placed reepat cxr with signs of fluid overload fluids stopped lasix dosed admitted team informed of updates Patient signed out to overnight team Kary Alas, PGY2 Emergency Medicine Past History - Past Medical History Allergies/Adverse Reactions: Allergies Allergy/AdvReac Type Severity Reaction Status Date / Time Sulfa (Sulfonamide Allergy Hives Verified 03/09/18 18:06 Antibiotics) dipyridamole AdvReac Mild headache Verified 03/09/18 18:06 [From Persantine] indomethacin [From Indocin] AdvReac Mild headache Verified 03/09/18 18:06 Home Medications: Ambulatory Orders Amlodipine Besylate 5 mg PO DAILY 03/07/19 Digoxin [Lanoxin -] 0.125 mg PO DAILY 03/07/19 Furosemide [Lasix] 20 mg PO DAILY 03/07/19 Levothyroxine [Synthroid -] 0 mcg PO DAILY 03/07/19 Ondansetron [Zofran -] 4 mg PO PRN 03/07/19 Pantoprazole Sodium 40 mg PO DAILY 03/07/19 Albuterol 2.5/Ipratropium 0.5 [Duoneb -] 1 amp NEB RQID amp 03/14/19 Azithromycin [Zithromax 250mg Tablets -] 250 mg PO DAILY #5 tablet 03/14/19 Enalapril Maleate [Vasotec -] 20 mg PO DAILY #60 tablet 03/14/19 Methotrexate [Mexate -] 20 mg PO Mo@1000 tablet 03/14/19 Metoprolol Succinate [Toprol XL -] 50 mg PO DAILY #30 tab.sr.24h 03/14/19 Mirtazapine [Remeron -] 15 mg PO HS #30 tablet 03/14/19 predniSONE [Deltasone -] 10 mg PO DAILY #100 tablet 03/14/19 Anemia: No Asthma: Yes Cancer: No Cardiac Disorders: Yes (ATRIAL FIBRILLATION) CVA: No COPD: Yes CHF: Yes Dementia: Yes (Memory loss) Diabetes: No GI Disorders: No Disorders: No HTN: Yes Hypercholesterolemia: Yes Liver Disease: No Seizures: No Thyroid Disease: No - Surgical History Abdominal Surgery: Yes (LAP SHARI 05/04) Cardiac Surgery: No Cholecystectomy: No Lung Surgery: No Neurologic Surgery: No Orthopedic Surgery: No - Immunization History Td Vaccination: Yes (6 YEARS AGO) Immunization Up to Date: Yes - Psycho Social/Smoking Cessation Hx Smoking Status: Yes Smoking History: Former smoker Have you smoked in the past 12 months: No Number of Cigarettes Smoked Daily: 20 'Breaking Loose' booklet given: 04/13/17 Hx Alcohol Use: No Drug/Substance Use Hx: No Substance Use Type: None Hx Substance Use Treatment: No ED Treatment Course - LABORATORY CBC & Chemistry Diagram: 05/13/19 07:00 05/13/19 07:00 Discharge - Discharge Information Problems reviewed: Yes Clinical Impression/Diagnosis: Sepsis - Admission Yes - Follow up/Referral - Patient Discharge Instructions - Post Discharge Activity
[2019-05-12] MEDS ORDERED: SODIUM CHLORIDE 1,000 ML IV SCH ×3 (08:45→13:45)
[2019-05-12 09:09] LABS: VENOUS PC02 44.3 mmHg (38-52); VENOUS PH 7.44 (7.31-7.41)
[2019-05-12 09:11] LABS: BASO % 0.6 % (0-2.0); EOS % 0.1 % (0-4.5); HEMATOCRIT 35.3 % (32.4-45.2); HEMOGLOBIN 11.6 GM/dL (10.7-15.3); LYMPH % 5.8 % (8-40); MCH 29.6 pg (25.7-33.7); MEAN CELL VOLUME 89.6 fl (80-96); MEAN PLT VOLUME 7.7 fl (7.5-11.1); MONO % 7.1 % (3.8-10.2); NEUT % 86.4 % (42.8-82.8); PLATELET COUNT 311 K/MM3 (134-434); RBC 3.93 M/mm3 (3.60-5.2); RDW 20.2 % (11.6-15.6)
[2019-05-12] MEDS ORDERED: ADENOSINE 6 MG/2 ML VIAL IVPUSH ONE ×2 (09:14→09:38)
[2019-05-12] MEDS ORDERED: ACETAMINOPHEN INJECTION 100 ML IVPB ONE (09:17)
[2019-05-12 09:19] LABS: VENOUS PO2 < 49 mmHg (28-48)
[2019-05-12] MEDS ORDERED: HALOPERIDOL LACTATE 5 MG/ML IM ONE (09:25)
[2019-05-12] MEDS ORDERED: HALOPERIDOL LACTATE 5 MG/ML ONE (09:27)
[2019-05-12 09:45] LABS: ALBUMIN 2.6 g/dl (3.4-5.0); BLOOD UREA NITROGEN 18.7 mg/dL (7-18); CALCIUM 9.2 mg/dL (8.5-10.1); CREATININE 0.7 mg/dL (0.55-1.3); POTASSIUM 4.7 mmol/L (3.5-5.1); TOT PROT 6.5 g/dl (6.4-8.2)
[2019-05-12] MEDS ORDERED: VANCOMYCIN 1 GM in D5W (PRE-DOCKED) 1,000 MG/250 ML IVPB ONE (09:46)
[2019-05-12] MEDS ORDERED: PIPERACILLIN/TAZOB 3.375 GM 3.375 GM in DEXTROSE 5%-WATER - 50 ML IVPB ONE (09:49)
[2019-05-12 09:52] LABS: ACTIVATED PTT 24.2 SECONDS (25.2-36.5)
[2019-05-12 10:03] LABS: INR 1.31 (0.83-1.09); PROTHROMBIN TIME (PATIENT) 15.5 SEC (9.7-13.0)
--- NOTE | 2019-05-12 10:40 | PDOC ---
Attending Attestation - Resident Resident Name: Kary Alas - ED Attending Attestation I have performed the following: I have examined & evaluated the patient, The case was reviewed & discussed with the resident, I agree w/resident's findings & plan, Exceptions are as noted - HPI HPI: 05/12/19 10:40 74 years old with past medical history significant for COPD CHF AAA hyperlipidemia hypertension dementia hypothyroidism rheumatoid arthritis chronic pain presents to the emergency department with altered mental status found to be febrile history limited by dementia and altered mental status. ROS: A complete review of 10 out of 10 review of systems is taken and is negative apart from what is previously mentioned below and in the HPI. You can - Physicial Exam PE: 05/12/19 10:45 Vitals: Triage Vital signs reviewed General Appearance: Elderly woman mildly agitated Head: Atraumatic, Neck: Supple; no Nucal rigidity Chest Wall: Nontender Cardiac: Tachycardic lungs: Clear to auscultation bilateral, good air movement bilaterally, Abdomen: Soft, non distended, normal bowel sounds, non tender to palpation Extremities: Full range of motion to all extremities, no cyanosis, clubbing, or edema Skin: Warm and dry, no rashes or lesions, no rash, no petechiae Neuro moving all extremities - Critical Care Time Total Critical Care Time: 45 Critical Care Statement: The care of this patient involved high complexity decision making to prevent further life threatening deterioration of the patient 's condition and/or to evaluate & treat vital organ system(s) failure or risk of failure. - Medical Decision Making 05/12/19 15:48 Patient presents with severe sepsis Elevated lactic elevated white count likely secondary to urine sepsis order set initiated broad-spectrum antibiotics started patient's heart rate has normalized her blood pressure is stable her CT is unremarkable Her second lactic has improved We will admit to medicine for further management. Heart Score/ECG Review - ECG Impressions Comment:: 05/12/19 15:49 EKG performed at 833 demonstrates sinus tachycardia at [address] depressions Interpreted by me.
[2019-05-12] MEDS ORDERED: PIPERACILLIN/TAZOB 3.375 GM 3.375 GM/50 ML BAG IVPB ONE (10:58)
[2019-05-12 11:26] LABS: EPI CELLS 4.3 /HPF (0-5/HPF); HYALINE CASTS 16 /lpf (0-8); PH,URINE 5.5 (5.0-8.0); URINE APPEARANCE CLEAR; URINE BACTERIA 12.2 /hpf (NEGATIVE); URINE BILIRUBIN 1+ (NEGATIVE); URINE COLOR DK YELLOW; URINE GLUCOSE (UA) NEGATIVE (NEGATIVE); URINE KETONE TRACE (NEGATIVE); URINE LEUK ESTERASE TRACE (NEGATIVE); URINE NITRITE POSITIVE (NEGATIVE); URINE PROTEIN 1+ (NEGATIVE); URINE WBC 9 /hpf (0-5)
[2019-05-12 11:31] LABS: URINE RBC 9.1 /hpf (0-4)
[2019-05-12] MEDS ORDERED: VANCOMYCIN 1 GRAM (PRE-DOCKED) 0 MG/0 ML BAG IVPB ONE (12:11)
[2019-05-12 12:22] LABS: ANISOCYTOSIS 2+; MACROCYTOSIS 0; OVALOCYTE 1+; PLATELET ESTIMATE NORMAL
[2019-05-12] MEDS ORDERED: VANCOMYCIN 1 GRAM (PRE-DOCKED) 1,000 MG/250 ML BAG IVPB ONE (12:54)
--- NOTE | 2019-05-12 13:23 | EKG ---
Test Reason : Blood Pressure : / mmHG Vent. Rate : 173 BPM Atrial Rate : 156 BPM P-R Int : 000 ms QRS Dur : 074 ms QT Int : 250 ms P-R-T Axes : 000 036 170 degrees QTc Int : 424 ms POOR DATA QUALITY, INTERPRETATION MAY BE ADVERSELY AFFECTED SUPRAVENTRICULAR TACHYCARDIA SEPTAL INFARCT (CITED ON OR BEFORE 09-MAR-2018) MARKED ST ABNORMALITY, POSSIBLE INFEROLATERAL SUBENDOCARDIAL INJURY ABNORMAL ECG WHEN COMPARED WITH ECG OF 10-MAR-2019 14:01, SIGNIFICANT CHANGES HAVE OCCURRED Confirmed by GERARDO SWANSON MD ([id number]) on 05/12/2019 1:23:02 PM Referred By: Confirmed By:GERARDO SWANSON MD
--- NOTE | 2019-05-12 14:25 | HP ---
Admitting History and Physical - Primary Care Physician PCP: Devin Fajardo - Admission Chief Complaint: came in for change in mental status History of Present Illness: 74yo F with PMH of COPD, CHF?, AAA, Thoracic Aneurysm, HTN, HLD, Dementia, Hypothyroidism, RA, Chronic Pain, who presents with altered mental status after being found down at home by her . The patient cannot provide further history as she doesnot know why she is in the hospital in rhe ER she found to have . 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, TIA Cardiovascular: Yes: Aneurysm (3.8cm AAA), HTN (controlled w/ hydralazine), Hyperlipdemia Pulmonary: Yes: Asthma, COPD Gastrointestinal: Yes: Diverticulosis, Gastritis, Hiatal Hernia, Other ( hyperplastic sigmoid polyps removed 12/27) Hepatobiliary: Yes: Cholelithiasis (s/p lap choly), Other (fatty liver) Musculoskeletal: Yes: Other (neuropathy LE) Rheumatology: Yes: Rheumatoid Arthritis, Vasculitis (of the skin) - Past Surgical History Past Surgical History: Yes: Breast Biopsy (b/l, negative), Cholecystectomy (lap choly 05/04), Colonoscopy, Hernia Repair (umbilical hernia repair 05/04), Hysterectomy (noel/bso), Joint Replacement (Lt. 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[employer] History of Recent Travel: No Home Medications - Allergies Allergies/Adverse Reactions: Allergies Allergy/AdvReac Type Severity Reaction Status Date / Time Sulfa (Sulfonamide Allergy Hives Verified 03/09/18 18:06 Antibiotics) dipyridamole AdvReac Mild headache Verified 03/09/18 18:06 [From Persantine] indomethacin [From Indocin] AdvReac Mild headache Verified 03/09/18 18:06 - Home Medications Home Medications: Ambulatory Orders Amlodipine Besylate 5 mg PO DAILY 03/07/19 Digoxin [Lanoxin -] 0.125 mg PO DAILY 03/07/19 Furosemide [Lasix] 20 mg PO DAILY 03/07/19 Levothyroxine [Synthroid -] 0 mcg PO DAILY 03/07/19 Ondansetron [Zofran -] 4 mg PO PRN 03/07/19 Pantoprazole Sodium 40 mg PO DAILY 03/07/19 Albuterol 2.5/Ipratropium 0.5 [Duoneb -] 1 amp NEB RQID amp 03/14/19 Azithromycin [Zithromax 250mg Tablets -] 250 mg PO DAILY #5 tablet 03/14/19 Enalapril Maleate [Vasotec -] 20 mg PO DAILY #60 tablet 03/14/19 Methotrexate [Mexate -] 20 mg PO Mo@1000 tablet 03/14/19 Metoprolol Succinate [Toprol XL -] 50 mg PO DAILY #30 tab.sr.24h 03/14/19 Mirtazapine [Remeron -] 15 mg PO HS #30 tablet 03/14/19 predniSONE [Deltasone -] 10 mg PO DAILY #100 tablet 03/14/19 Review of Systems - Review of Systems Neck: reports: No Symptoms Cardiovascular: reports: No Symptoms Respiratory: reports: No Symptoms Physical Examination Vital Signs: Vital Signs Temperature 98.3 F 05/12/19 13:28 Pulse Rate 72 05/12/19 13:28 Respiratory Rate 18 05/12/19 13:28 Blood Pressure 111/42 L 05/12/19 13:28 O2 Sat by Pulse Oximetry (%) 100 05/12/19 13:28 Constitutional: Yes: Calm Cardiovascular: Yes: Regular Rate and Rhythm, S1, S2 Respiratory: Yes: Diminished Gastrointestinal: Yes: Normal Bowel Sounds, Soft Neurological: Yes: Alert, Oriented (to name and place) Labs: CBC, BMP 05/12/19 08:40 05/12/19 08:40 Imaging - Results Cat Scan: Report Reviewed (multiple hypodense masses within the spleen seen) Problem List - Problems (1) Change in mental status Assessment/Plan: toxic metabolic encephalopathy possible urosepssis inc wbc fever and borderline BP and inc bun and elevated lactic acid ivf hydration blood and urine cultures trend lactic acid ID consult broad spectrum abx vancomyin and zposyn given in ER dvt ppx Code(s): R41.82 - ALTERED MENTAL STATUS, UNSPECIFIED (2) Lesion of spleen Assessment/Plan: abdominal MRi gi eval and heme eval Code(s): D73.9 - DISEASE OF SPLEEN, UNSPECIFIED (3) Hypothyroid Assessment/Plan: tsh synthroid Code(s): E03.9 - HYPOTHYROIDISM, UNSPECIFIED (4) CAD (coronary artery disease) Assessment/Plan: given low BP will hold [place] and enalapril for now and check digoxin level as well cardiology eval Code(s): I25.10 - ATHSCL HEART DISEASE OF [place] CORONARY ARTERY W/O ANG PCTRS
[2019-05-12] MEDS ORDERED: PANTOPRAZOLE 40 MG TABLET (FP) PO ONE (14:57)
[2019-05-12] MEDS ORDERED: PANTOPRAZOLE 40 MG TABLET (FP) ONE (15:34)
--- NOTE | 2019-05-12 15:48 | CON.CARD ---
Cardiology Consult (text) - Consultation Consultation Note: Chief Complaint: syncope History of Present Illness: 74F h/o dementia, HTN, COPD, pulm HTN, AAA, HTN, HLD p/w syncope. Pt does not recall events. She remembers being in kitchen at home and next she remembers being in ER. Per charts found her confused on floor at home and brought her to ER. Pt denies cp sob palps dizzy pnd orthopnea le edema. In ER febrile, pna, on abx now. Also with svt in ER, broke after ivfs, nsr now. Sees Dr. Vicente for cardio. 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, Peripheral Neuropathy, TIA Cardio/Vascular: Yes: Aneurysm (AAA), HTN (controlled w/ hydralazine), Hyperlipdemia Pulmonary: Yes: Asthma, COPD Gastrointestinal: Yes: Diverticulosis, Hiatal Hernia, Other (hyperplastic sigmoid polyps removed 12/27) Hepatobiliary: Yes: Cholelithiasis, Other (fatty liver) ...: No Musculoskeletal: Yes: Other (neuropathy LE) Rheumatology: Yes: Rheumatoid Arthritis, Vasculitis (of the skin) - Past Surgical History Past Surgical History: Yes: Breast Biopsy (b/l, negative), Cholecystectomy (lap choly 05/04), Colonoscopy, Hernia Repair (umbilical hernia repair 05/04), Hysterectomy (noel/bso), Joint Replacement (Lt. THR w/ revision), Upper Endoscopy - Alcohol/Substance Use Hx Alcohol Use: No - Smoking History Smoking history: Unknown if ever smoked Have you smoked in the past 12 months: No Aproximately how many cigarettes per day: 20 - Social History Usual Living Arrangement: With Spouse ADL: Family Assistance History of Recent Travel: No Home Medications - Allergies Allergies/Adverse Reactions: Allergies Allergy/AdvReac Type Severity Reaction Status Date / Time Sulfa (Sulfonamide Allergy Hives Verified 03/09/18 18:06 Antibiotics) dipyridamole AdvReac Mild headache Verified 03/09/18 18:06 [From Persantine] indomethacin [From Indocin] AdvReac Mild headache Verified 03/09/18 18:06 Home Medications Medication Instructions Recorded Amlodipine Besylate 5 mg PO DAILY 03/07/19 Digoxin [Lanoxin -] 0.125 mg PO DAILY 03/07/19 Furosemide [Lasix] 20 mg PO DAILY 03/07/19 Levothyroxine [Synthroid -] 0 mcg PO DAILY 03/07/19 Ondansetron [Zofran -] 4 mg PO PRN 03/07/19 Pantoprazole Sodium 40 mg PO DAILY 03/07/19 Albuterol 2.5/Ipratropium 0.5 1 amp NEB RQID amp 03/14/19 [Duoneb -] Azithromycin [Zithromax 250mg 250 mg PO DAILY #5 tablet 03/14/19 Tablets -] Enalapril Maleate [Vasotec -] 20 mg PO DAILY #60 tablet 03/14/19 Methotrexate [Mexate -] 20 mg PO Mo@1000 tablet 03/14/19 Metoprolol Succinate [Toprol XL -] 50 mg PO DAILY #30 tab.sr.24h 03/14/19 Mirtazapine [Remeron -] 15 mg PO HS #30 tablet 03/14/19 predniSONE [Deltasone -] 10 mg PO DAILY #100 tablet 03/14/19 Family Disease History - Family Disease History Family Disease History: Diabetes: Mother (: pna/dm), Son, Other: Father ( : lung cancer), Mother, Brother (lung cancer), Daughter (SLE) Review of Systems - Review of Systems Constitutional: denies: Chills, Fever Eyes: denies: Eye Pain HENT: denies: Nasal Congestion Neck: denies: Stiffness Cardiovascular: denies: Palpitations Respiratory: denies: Orthopnea, PND Gastrointestinal: denies: Diarrhea, Rectal Bleeding Genitourinary: denies: Burning, Hematuria Musculoskeletal: denies: Muscle Pain Integumentary: denies: Rash Neurological: denies: Numbness, Seizure, Syncope Endocrine: denies: Excessive Sweating Hematology/Lymphatic: denies: Excessive Bleeding Vital Signs Period Temp Pulse Resp BP Sys/[place] Pulse Ox Last 24 Hr 98.3 F-101.7 F 72-125 18-30 104-120/31-93 93-100 Constitutional: Yes: Well Nourished, No Distress Eyes: No: Sclera Icterus HENT: No: Nasal Congestion Neck: No: Decreased ROM Respiratory: Yes: CTA Bilaterally. No: Accessory Muscle Use, Rales, Tachypnea, Wheezes Gastrointestinal: Yes: Normal Bowel Sounds. No: Distention, Hepatomegaly, Palpable Mass, Tenderness Cardiovascular: Yes: Regular Rate and Rhythm JVD: No Carotid Bruit: No PMI: Non-Displaced Heart Sounds: Yes: S1, S2. No: Gallop Murmur: No: Systolic Murmur, Diastolic Murmur Extremities: No: Cold Edema: No Peripheral Pulses: 2+ Left Carotid, 2+ Right Carotid, 2+ Left Doralis Pedis, 2+ Right Dorsalis Pedis Integumentary: No: Jaundice diaphoresis Neurological: Yes: Alert. No: Seizure Psychiatric: No: Agitated Laboratory Last Values WBC 20.0 K/mm3 (4.0-10.0) H 05/12/19 08:40 RBC 3.93 M/mm3 (3.60-5.2) 05/12/19 08:40 Hgb 11.6 GM/dL (10.7-15.3) 05/12/19 08:40 Hct 35.3 % (32.4-45.2) 05/12/19 08:40 MCV 89.6 fl (80-96) 05/12/19 08:40 MCH 29.6 pg (25.7-33.7) 05/12/19 08:40 MCHC 33.0 g/dl (32.0-36.0) 05/12/19 08:40 RDW 20.2 % (11.6-15.6) H 05/12/19 08:40 Plt Count 311 K/MM3 (134-434) 05/12/19 08:40 MPV 7.7 fl (7.5-11.1) 05/12/19 08:40 Absolute Neuts (auto) 17.3 K/mm3 (1.5-8.0) H 05/12/19 08:40 Neutrophils % 86.4 % (42.8-82.8) H 05/12/19 08:40 Neutrophils % (Manual) 76.0 % (42.8-82.8) 05/12/19 08:40 Band Neutrophils % 2.0 % 05/12/19 08:40 Lymphocytes % 5.8 % (8-40) L D 05/12/19 08:40 Lymphocytes % (Manual) 5.0 % (8-40) L 05/12/19 08:40 Monocytes % 7.1 % (3.8-10.2) D 05/12/19 08:40 Monocytes % (Manual) 11 % (3.8-10.2) H D 05/12/19 08:40 Eosinophils % 0.1 % (0-4.5) D 05/12/19 08:40 Eosinophils % (Manual) 0.0 % (0-4.5) 05/12/19 08:40 Basophils % 0.6 % (0-2.0) 05/12/19 08:40 Basophils % (Manual) 1.0 % (0-2.0) D 05/12/19 08:40 Myelocytes % (Man) 0 % (0-2) 05/12/19 08:40 Promyelocytes % (Man) 0 % (0-2) 05/12/19 08:40 Blast Cells % (Manual) 0 % (0-0) 05/12/19 08:40 Nucleated RBC % 0 % (0-0) 05/12/19 08:40 Metamyelocytes 1 % (0-2) D 05/12/19 08:40 Hypochromia 0 05/12/19 08:40 Platelet Estimate Normal 05/12/19 08:40 Platelet Comment Present 05/12/19 08:40 Polychromasia 2+ 05/12/19 08:40 Poikilocytosis 1+ 05/12/19 08:40 Anisocytosis 2+ 05/12/19 08:40 Microcytosis 1+ 05/12/19 08:40 Macrocytosis 0 05/12/19 08:40 Spherocytes 1+ 05/12/19 08:40 Ovalocytes 1+ 05/12/19 08:40 PT with INR 15.50 SEC (9.7-13.0) H 05/12/19 08:40 INR 1.31 (0.83-1.09) H 05/12/19 08:40 PTT (Actin FS) 24.2 SECONDS (25.2-36.5) L 05/12/19 08:40 VBG pH 7.44 (7.31-7.41) H 05/12/19 08:40 POC VBG pCO2 44.3 mmHg (38-52) 05/12/19 08:40 POC VBG pO2 < 49 mmHg (28-48) H 05/12/19 08:40 VBG HCO3 29.2 mmol/L (23-29) H 05/12/19 08:40 VBG O2 Sat (Nichole) 59.5 % (70-80) L 05/12/19 08:40 VBG Base Excess 4.9 meq/l (-2-2) H 05/12/19 08:40 Sodium 132 mmol/L (136-145) L 05/12/19 08:40 Potassium 4.7 mmol/L (3.5-5.1) 05/12/19 08:40 Chloride 94 mmol/L (98-107) L 05/12/19 08:40 Carbon Dioxide 28 mmol/L (21-32) 05/12/19 08:40 Anion Gap 10 MMOL/L (8-16) 05/12/19 08:40 BUN 18.7 mg/dL (7-18) H 05/12/19 08:40 Creatinine 0.7 mg/dL (0.55-1.3) 05/12/19 08:40 Est GFR (CKD-EPI)AfAm 99.62 05/12/19 08:40 Est GFR (CKD-EPI)NonAf 85.95 05/12/19 08:40 Random Glucose 135 mg/dL (74-106) H 05/12/19 08:40 Lactic Acid 1.6 mmol/L (0.4-2.0) 05/12/19 12:30 Calcium 9.2 mg/dL (8.5-10.1) 05/12/19 08:40 Total Bilirubin 2.0 mg/dL (0.2-1) H 05/12/19 08:40 AST 22 U/L (15-37) 05/12/19 08:40 ALT 11 U/L (13-61) L 05/12/19 08:40 Alkaline Phosphatase 82 U/L (45-117) 05/12/19 08:40 Troponin I 0.06 ng/ml (0.00-0.05) H 05/12/19 08:40 B-Natriuretic Peptide 1737.7 pg/ml (5-125) H 05/12/19 08:40 Total Protein 6.5 g/dl (6.4-8.2) 05/12/19 08:40 Albumin 2.6 g/dl (3.4-5.0) L 05/12/19 08:40 Urine Color Dk yellow 05/12/19 10:20 Urine Appearance Clear 05/12/19 10:20 Urine pH 5.5 (5.0-8.0) 05/12/19 10:20 Ur Specific [place] 1.021 (1.010-1.035) 05/12/19 10:20 Urine Protein 1+ (NEGATIVE) H 05/12/19 10:20 Urine Glucose (UA) Negative (NEGATIVE) 05/12/19 10:20 Urine Ketones Trace (NEGATIVE) H 05/12/19 10:20 Urine Blood 2+ (NEGATIVE) H 05/12/19 10:20 Urine Nitrite Positive (NEGATIVE) H 05/12/19 10:20 Urine Bilirubin 1+ (NEGATIVE) H 05/12/19 10:20 Urine Urobilinogen 2.0 mg/dL (0.2-1.0) H 05/12/19 10:20 Ur Leukocyte Esterase Trace (NEGATIVE) 05/12/19 10:20 Urine WBC (Auto) 9 /hpf (0-5) 05/12/19 10:20 Urine RBC (Auto) 9.1 /hpf (0-4) 05/12/19 10:20 Urine Casts (Auto) 16 /lpf (0-8) 05/12/19 10:20 U Epithel Cells (Auto) 4.3 /HPF (0-5/HPF) 05/12/19 10:20 Urine Bacteria (Auto) 12.2 /hpf (NEGATIVE) 05/12/19 10:20 echo 09/04: nl LV/EF, no RWMA. nl RV. nl LA. mild AI. no RVSP. 4 cm ao root, 4.1 cm ascending. echo 02/2019 tds, LV function severely reduced, severe global hypokinesis of LV, RV not well visualized, mild MR, mod AR mibi 04/2013: mod septal ischemia per report CXR: pna, no chf ecg: svt 170s, inferolat st/t changes IMP/ PLAN: fall, possible syncope: -pt does not recall event, found on floor at home -no signs acs or chf -was in svt in er and also septic so this may have led to syncope/fall -cont tx of sepsis, in sr now, monitor on tele -check updated echo sepsis, pna: -abx per ID Chronic systolic HF: -lvef sev reduced 02/2019, thought to possibly TIC from uncontrolled svt/MAT -check echo to see lvef - appears euvolemic currently, holding lasix due to low bp, sepsis currently. close monitoring of vol status. - home meds include bb, ACEI, holding now due to sepsis Multifocal atrial tach (MAT): -was in svt here on presentation, now back in sr after ivfs, abx -cont home digoxin (check level). holding bb due to sepsis, low bp -monitor on tele HTN: -holding home meds due to sepsis/low bp HLD: -cont home statin Possible CAD: -prior mibi 2012 reported low-risk area of (septal) ischemia and has been managed medically with no angina sx's -pt with extensive atherosclerotic aorta vascular disease -cont home bb, randall when bp stable. cont statin -ASA held in recent past when developed NSAID-related PUD -intermediate trop elevation, possibly demand from sepsis/svt. does not appear to be acs. trend ce's on tele for now. echo pending. Thoracic and abdominal aorta aneurysms: -known ascending aorta aneurysm, descending aorta aneurysm, stable on recent ct 03/2019 -known AAA, cont bp control. -would be high risk (maybe not prohibitive) for open repair in any case ( ascending aorta not amenable to endovascular approach)
--- NOTE | 2019-05-12 16:00 | ECHO ---
Name: ZAYRA CORTEZ Exam:Adult Echocardiogram Study Date: 05/12/2019 03:10 PM Age: 74 yrs Reason For Study: LOOK LVEF Height: 64 in Weight: 162 lb BSA: 1.8 m2 MMode/2D Measurements & Calculations IVSd: 0.96 cm Ao root diam: 3.0 cm LVIDd: 5.0 cm LVIDs: 3.3 cm LVPWd: 0.86 cm EDV(Teich): 117.2 ml LVOT diam: 2.3 cm ESV(Teich): 42.7 ml Doppler Measurements & Calculations MV E max adrien: 69.6 cm/sec Ao V2 max: 157.5 cm/sec MV A max adrien: 102.2 cm/sec Ao max P.9 mmHg MV E/A: 0.68 AI P1/2t: 420.6 msec MV dec time: 0.29 sec JESS(V,D): 3.4 cm2 AI max adrien: 286.9 cm/sec LV V1 max P.2 mmHg AI max P.6 mmHg LV V1 max: 124.8 cm/sec AI dec slope: 199.8 cm/sec2 Med Peak E' Adrien: 5.7 cm/sec Med E/e': 12.3 Lat Peak E' Adrien: 8.2 cm/sec Lat E/e': 8.5 Left Ventricle There is mild concentric left ventricular hypertrophy. Left ventricular systolic function is grossly normal. Ejection Fraction = 50%. Right Ventricle The right ventricle is grossly normal size. The right ventricular systolic function is grossly normal . Atria Normal left and right atrial size and function. Mitral Valve The mitral valve is normal in structure and function. There is no mitral valve stenosis. There is tra ce to mild mitral regurgitation. Tricuspid Valve The tricuspid valve is not well visualized, but is grossly normal. There is mild tricuspid regurgitat ion. Aortic Valve There is mild aortic sclerosis.;. No hemodynamically significant valvular aortic stenosis. Mild to mo derate aortic regurgitation. Pulmonic Valve The pulmonic valve is not well seen, but is grossly normal. There is no pulmonic valvular stenosis. Great Vessels The aortic root is normal size. Pericardium/Pleura There is no pericardial effusion. Interpretation Summary There is mild concentric left ventricular hypertrophy. Left ventricular systolic function is grossly normal. Ejection Fraction = 50%. There is trace to mild mitral regurgitation. There is mild tricuspid regurgitation. There is mild aortic sclerosis.; Mild to moderate aortic regurgitation. There is no pericardial effusion. MD Rodríguez *Haylie 05/12/2019 03:59 PM
[2019-05-12] MEDS: SODIUM CHLORIDE 1,000 ML IV SCH (16:35)
[2019-05-12 17:13] LABS: ALBUMIN 2.2 g/dl (3.4-5.0); BILIRUBIN,TOTAL 1.2 mg/dL (0.2-1); BLOOD UREA NITROGEN 14.8 mg/dL (7-18); CREATININE 0.6 mg/dL (0.55-1.3); POTASSIUM 4.1 mmol/L (3.5-5.1); TOT PROT 5.5 g/dl (6.4-8.2)
[2019-05-12] MEDS ORDERED: dilTIAZem HCL 30 MG TABLET (FP) PO ONE (17:24)
[2019-05-12] MEDS ORDERED: PIPERACILLIN/TAZOB 3.375 GM 3.375 GM in DEXTROSE 5%-WATER - 50 ML IVPB SCH (18:00)
[2019-05-12] MEDS ORDERED: IPRATROPIUM BR 0.02% 0.5 MG/2.5 ML VIAL.NEB. NEB ONE ×2 (18:01→18:17)
[2019-05-12] MEDS ORDERED: dilTIAZem HCL 30 MG TABLET (FP) ONE (18:18)
[2019-05-12] MEDS ORDERED: FUROSEMIDE 40 MG/4 ML INJECTABLE VIAL IVPUSH ONE ×2 (18:21→18:27)
[2019-05-12 18:30] LABS: ARTERIAL BLD GAS O2 SATURATION 97.2 % (95-98); ARTERIAL BLOOD GAS BASE EXCESS 0 meq/l (-2-2); ARTERIAL BLOOD GAS PCO2 43.5 mmHg (35-45); ARTERIAL BLOOD GAS PO2 98.9 mmHg (80-100); ARTERIAL BLOOD GAS pH 7.37 (7.35-7.45)
[2019-05-12 18:31] LABS: ALLENS TEST POSITIVE
[2019-05-12] MEDS ORDERED: FUROSEMIDE 40 MG/4 ML INJECTABLE VIAL ONE (18:56)
--- NOTE | 2019-05-12 19:21 | PN ---
Progress Note (short form) - Note Progress Note: ID CONSULT DICTATED
--- NOTE | 2019-05-12 20:07 | CONS ---
DATE OF CONSULTATION: 05/12/2019 HISTORY OF PRESENT ILLNESS: The patient is a 74-year-old female who is being evaluated for fever and leukocytosis. History was obtained from the chart, as she does not give a reliable history. She was admitted to the hospital today, May 12, 2019, after being found on the floor at her residence. She was evaluated in the emergency room. She was febrile and tachycardic. Heart monitor revealed SVT with a rate in the 170s. She was also noted to have a markedly elevated white blood cell count and had lactic acidosis. A CAT scan of the head was negative for acute infarct or bleed. She was empirically treated with vancomycin and Zosyn. A chest x-ray shows new infiltrates present in the right upper lobe and possibly in the left lower lobe. The patient is awake and responsive. She denies any focal complaints. She denies any pain. There are no complaints of chest pain, shortness of breath, cough or sputum production. She denies vomiting, diarrhea or dysuria. The patient was hospitalized in February 2019 with an acute exacerbation of COPD. PAST MEDICAL HISTORY: Positive for COPD, congestive heart failure, abdominal aneurysm, hypertension, hyperlipidemia, hypothyroidism, rheumatoid arthritis, dementia. PAST SURGICAL HISTORY: Status post laparoscopic cholecystectomy and left total hip replacement. ALLERGIES: SULFA, DIPYRIDAMOLE and INDOMETHACIN. HOME MEDICATIONS: Amlodipine, digoxin, Lasix, Synthroid, Zofran, Protonix, enalapril, methotrexate, metoprolol, Remeron, prednisone. SOCIAL HISTORY: She resides at home in the community. She is a former smoker. REVIEW OF SYSTEMS: Neurologic: Positive for altered mental status. Cardiac: Negative for chest pain or palpitations. Respiratory: As per HPI. Gastrointestinal: Negative for vomiting or diarrhea. Genitourinary: Negative for urinary tract infection. LABORATORY DATA: White count 20.0 with a left shift. Hematocrit 35.3, platelets 311, creatinine 0.7, lactic acid 3.4. Urinalysis showed 9 white cells. Total bilirubin 2.0, alkaline phosphatase 82, AST 22, ALT 11. A chest x-ray is as described. PHYSICAL EXAMINATION: General: She is awake. She is not acutely toxic appearing. She appears mildly confused. Vital Signs: Temperature 101.7, pulse 72 and regular, blood pressure 111/42 respiratory rate 18 per minute. HEENT:: Sclerae anicteric. Heart: Heart sounds S1, S2. Lungs: A few rhonchi bilaterally. No rales or wheezing. Abdomen: Obese, soft, nontender. Extremities: Positive for edema. IMPRESSION: 1. Right upper lobe pneumonia; community acquired vs. atypical. 2. Rule out sepsis secondary to pneumonia. 3. Toxic metabolic encephalopathy. 4. Leukocytosis. 5. Lactic acidosis. 6. History of rheumatoid arthritis on methotrexate. PLAN: 1. Await sepsis workup. 2. Empiric antibiotic coverage with Zithromax and Zosyn. 3. Obtain sputum culture, urine Legionella and pneumococcal antigens. 4. Further recommendations pending cultures. 5. Will follow. Thank you for the kind referral. GERARDO GRANADOS M.D. [id number]
[2019-05-12] MEDS ORDERED: ACETAMINOPHEN 650 MG SUPP.RECT PR ONE (20:47)
[2019-05-12] MEDS: AZITHROMYCIN IVPB 500 MG/250 ML BAG IVPB SCH (20:50)
[2019-05-13] MEDS ORDERED: DEXTROSE 5%-WATER - 50 ML IVPB ONE ×3 (00:23→15:31)
[2019-05-13] MEDS ORDERED: PIPERACILLIN/TAZOBACTAM 3.375 GM VIAL IVPB ONE ×3 (00:23→15:31)
[2019-05-13] MEDS: PIPERACILLIN/TAZOB 3.375 GM 3.375 GM in DEXTROSE 5%-WATER - 50 ML IVPB SCH ×3 (01:10→17:21)
[2019-05-13] MEDS ORDERED: ACETAMINOPHEN 650 MG SUPP.RECT PR PRN (03:00)
[2019-05-13] MEDS: LEVOTHYROXINE NA 25 MCG TABLET (FP) PO SCH (06:08)
[2019-05-13] MEDS: SODIUM CHLORIDE 1,000 ML IV SCH (06:13)
[2019-05-13 06:42] LABS: ARTERIAL BLD GAS O2 SATURATION 96.5 % (95-98); ARTERIAL BLOOD GAS BASE EXCESS 5.3 meq/l (-2-2); ARTERIAL BLOOD GAS PCO2 44.6 mmHg (35-45); ARTERIAL BLOOD GAS PO2 87.2 mmHg (80-100); ARTERIAL BLOOD GAS pH 7.44 (7.35-7.45)
[2019-05-13 06:45] LABS: ALLENS TEST POSITIVE
[2019-05-13 07:50] LABS: HEMATOCRIT 32.7 % (32.4-45.2); HEMOGLOBIN 10.8 GM/dL (10.7-15.3); MCH 29.6 pg (25.7-33.7); MCHC 33.1 g/dl (32.0-36.0); MEAN CELL VOLUME 89.4 fl (80-96); MEAN PLT VOLUME 7.1 fl (7.5-11.1); PLATELET COUNT 252 K/MM3 (134-434); RBC 3.65 M/mm3 (3.60-5.2); RDW 20.7 % (11.6-15.6); WHITE BLOOD COUNT 16.1 K/mm3 (4.0-10.0)
--- NOTE | 2019-05-13 08:02 | HOSP ---
Subjective - Review of Symptoms Events since last encounter: Hospitalist Encounter Was asked to assess patient who was reported by the RN to be in Respiratory Distress earlier this evening Patient is at bedside on Bipap, alert to name only- baseline. Patient denies SOB , CP or palpitations PE performed see EMR Assessment: This is a 74 y/o woman with a PMHx of COPD, CHF?, AAA, Thoracic Aneurysm, HTN, HLD, Dementia, Hypothyroidism, RA, Chronic Pain. Admitted to Telemetry for Acute Metabolic Encephalopathy, Pneumonia. Plan: Continue Bipap Lasix Strict INOs Daily Weight Continue with current regimen Physical Examination Vital Signs: Vital Signs Temperature 99.5 F 05/13/19 06:00 Pulse Rate 109 H 05/13/19 06:00 Respiratory Rate 22 H 05/13/19 06:00 Blood Pressure 155/52 L 05/13/19 06:00 O2 Sat by Pulse Oximetry (%) 97 05/13/19 01:30 Constitutional: Yes: No Distress, Calm Eyes: Yes: Conjunctiva Clear, PERRL HENT: Yes: WNL, Atraumatic, Normocephalic Neck: Yes: WNL, Supple, Trachea Midline Cardiovascular: Yes: Pulse Irregular, S1, S2 Respiratory: Yes: Diminished (RUL), On BiPap, Rhonchi Gastrointestinal: Yes: WNL, Normal Bowel Sounds, Soft Neurological: Yes: Alert, Confusion, Cran Nerves II-XII Intact ...Motor Strength: WNL Psychiatric: Yes: Alert Labs: Laboratory Results - last 24 hr 05/12/19 05/12/19 05/12/19 08:40 08:40 08:40 WBC 20.0 H RBC 3.93 Hgb 11.6 Hct 35.3 MCV 89.6 MCH 29.6 MCHC 33.0 RDW 20.2 H Plt Count 311 MPV 7.7 Absolute Neuts (auto) 17.3 H Neutrophils % 86.4 H Neutrophils % (Manual) 76.0 Band Neutrophils % 2.0 Lymphocytes % 5.8 L D Lymphocytes % (Manual) 5.0 L Monocytes % 7.1 D Monocytes % (Manual) 11 H D Eosinophils % 0.1 D Eosinophils % (Manual) 0.0 Basophils % 0.6 Basophils % (Manual) 1.0 D Myelocytes % (Man) 0 Promyelocytes % (Man) 0 Blast Cells % (Manual) 0 Nucleated RBC % 0 Metamyelocytes 1 D Hypochromia 0 Platelet Estimate Normal Platelet Comment Present Polychromasia 2+ Poikilocytosis 1+ Anisocytosis 2+ Microcytosis 1+ Macrocytosis 0 Spherocytes 1+ Ovalocytes 1+ PT with INR 15.50 H INR 1.31 H PTT (Actin FS) 24.2 L Anticoagulation Therapy Puncture Site ABG pH ABG pCO2 at Pt Temp ABG pO2 at Pt Temp ABG HCO3 ABG O2 Sat (Measured) ABG O2 Content ABG Base Excess Caleb Test VBG pH POC VBG pCO2 POC VBG pO2 VBG HCO3 VBG O2 Sat (Nichole) VBG Base Excess O2 Delivery Device Oxygen Flow Rate Vent Mode Vent Rate Mechanical Rate Pressure Support Vent Sodium 132 L Potassium 4.7 Chloride 94 L Carbon Dioxide 28 Anion Gap 10 BUN 18.7 H Creatinine 0.7 Est GFR (CKD-EPI)AfAm 99.62 Est GFR (CKD-EPI)NonAf 85.95 Random Glucose 135 H Lactic Acid Calcium 9.2 Total Bilirubin 2.0 H AST 22 ALT 11 L Alkaline Phosphatase 82 Creatine Kinase Creatine Kinase Index CK-MB (CK-2) Troponin I 0.06 H B-Natriuretic Peptide Total Protein 6.5 Albumin 2.6 L Urine Color Urine Appearance Urine pH Ur Specific [place] Urine Protein Urine Glucose (UA) Urine Ketones Urine Blood Urine Nitrite Urine Bilirubin Urine Urobilinogen Ur Leukocyte Esterase Urine WBC (Auto) Urine RBC (Auto) Urine Casts (Auto) U Epithel Cells (Auto) Urine Bacteria (Auto) Digoxin 05/12/19 05/12/19 05/12/19 08:40 08:40 08:40 WBC RBC Hgb Hct MCV MCH MCHC RDW Plt Count MPV Absolute Neuts (auto) Neutrophils % Neutrophils % (Manual) Band Neutrophils % Lymphocytes % Lymphocytes % (Manual) Monocytes % Monocytes % (Manual) Eosinophils % Eosinophils % (Manual) Basophils % Basophils % (Manual) Myelocytes % (Man) Promyelocytes % (Man) Blast Cells % (Manual) Nucleated RBC % Metamyelocytes Hypochromia Platelet Estimate Platelet Comment Polychromasia Poikilocytosis Anisocytosis Microcytosis Macrocytosis Spherocytes Ovalocytes PT with INR Cancelled INR Cancelled PTT (Actin FS) Anticoagulation Therapy Puncture Site ABG pH ABG pCO2 at Pt Temp ABG pO2 at Pt Temp ABG HCO3 ABG O2 Sat (Measured) ABG O2 Content ABG Base Excess Caleb Test VBG pH 7.44 H POC VBG pCO2 44.3 POC VBG pO2 < 49 H VBG HCO3 29.2 H VBG O2 Sat (Nichole) 59.5 L VBG Base Excess 4.9 H O2 Delivery Device Oxygen Flow Rate Vent Mode Vent Rate Mechanical Rate Pressure Support Vent Sodium Potassium Chloride Carbon Dioxide Anion Gap BUN Creatinine Est GFR (CKD-EPI)AfAm Est GFR (CKD-EPI)NonAf Random Glucose Lactic Acid 3.4 H* Calcium Total Bilirubin AST ALT Alkaline Phosphatase Creatine Kinase Creatine Kinase Index CK-MB (CK-2) Troponin I B-Natriuretic Peptide Total Protein Albumin Urine Color Urine Appearance Urine pH Ur Specific [place] Urine Protein Urine Glucose (UA) Urine Ketones Urine Blood Urine Nitrite Urine Bilirubin Urine Urobilinogen Ur Leukocyte Esterase Urine WBC (Auto) Urine RBC (Auto) Urine Casts (Auto) U Epithel Cells (Auto) Urine Bacteria (Auto) Digoxin 05/12/19 05/12/19 05/12/19 08:40 10:20 12:30 WBC RBC Hgb Hct MCV MCH MCHC RDW Plt Count MPV Absolute Neuts (auto) Neutrophils % Neutrophils % (Manual) Band Neutrophils % Lymphocytes % Lymphocytes % (Manual) Monocytes % Monocytes % (Manual) Eosinophils % Eosinophils % (Manual) Basophils % Basophils % (Manual) Myelocytes % (Man) Promyelocytes % (Man) Blast Cells % (Manual) Nucleated RBC % Metamyelocytes Hypochromia Platelet Estimate Platelet Comment Polychromasia Poikilocytosis Anisocytosis Microcytosis Macrocytosis Spherocytes Ovalocytes PT with INR INR PTT (Actin FS) Anticoagulation Therapy Puncture Site ABG pH ABG pCO2 at Pt Temp ABG pO2 at Pt Temp ABG HCO3 ABG O2 Sat (Measured) ABG O2 Content ABG Base Excess Caleb Test VBG pH POC VBG pCO2 POC VBG pO2 VBG HCO3 VBG O2 Sat (Nichole) VBG Base Excess O2 Delivery Device Oxygen Flow Rate Vent Mode Vent Rate Mechanical Rate Pressure Support Vent Sodium Potassium Chloride Carbon Dioxide Anion Gap BUN Creatinine Est GFR (CKD-EPI)AfAm Est GFR (CKD-EPI)NonAf Random Glucose Lactic Acid 1.6 Calcium Total Bilirubin AST ALT Alkaline Phosphatase Creatine Kinase Creatine Kinase Index CK-MB (CK-2) Troponin I B-Natriuretic Peptide 1737.7 H Total Protein Albumin Urine Color Dk yellow Urine Appearance Clear Urine pH 5.5 Ur Specific [place] 1.021 Urine Protein 1+ H Urine Glucose (UA) Negative Urine Ketones Trace H Urine Blood 2+ H Urine Nitrite Positive H Urine Bilirubin 1+ H Urine Urobilinogen 2.0 H Ur Leukocyte Esterase Trace Urine WBC (Auto) 9 Urine RBC (Auto) 9.1 Urine Casts (Auto) 16 U Epithel Cells (Auto) 4.3 Urine Bacteria (Auto) 12.2 Digoxin 05/12/19 05/12/19 05/12/19 16:00 16:00 18:10 WBC RBC Hgb Hct MCV MCH MCHC RDW Plt Count MPV Absolute Neuts (auto) Neutrophils % Neutrophils % (Manual) Band Neutrophils % Lymphocytes % Lymphocytes % (Manual) Monocytes % Monocytes % (Manual) Eosinophils % Eosinophils % (Manual) Basophils % Basophils % (Manual) Myelocytes % (Man) Promyelocytes % (Man) Blast Cells % (Manual) Nucleated RBC % Metamyelocytes Hypochromia Platelet Estimate Platelet Comment Polychromasia Poikilocytosis Anisocytosis Microcytosis Macrocytosis Spherocytes Ovalocytes PT with INR INR PTT (Actin FS) Anticoagulation Therapy No Result Required. Puncture Site No Result Required. ABG pH 7.37 ABG pCO2 at Pt Temp 43.5 ABG pO2 at Pt Temp 98.9 ABG HCO3 24.8 ABG O2 Sat (Measured) 97.2 ABG O2 Content 15.2 ABG Base Excess 0 Caleb Test Positive VBG pH POC VBG pCO2 POC VBG pO2 VBG HCO3 VBG O2 Sat (Nichole) VBG Base Excess O2 Delivery Device No Result Required. Oxygen Flow Rate No Result Required. Vent Mode No Result Required. Vent Rate No Result Required. Mechanical Rate No Result Required. Pressure Support Vent No Result Required. Sodium 137 Potassium 4.1 Chloride 101 Carbon Dioxide 25 Anion Gap 11 BUN 14.8 Creatinine 0.6 Est GFR (CKD-EPI)AfAm 104.80 Est GFR (CKD-EPI)NonAf 90.42 Random Glucose 124 H Lactic Acid Calcium 8.0 L Total Bilirubin 1.2 H AST 25 ALT 9 L Alkaline Phosphatase 76 Creatine Kinase 309 H Creatine Kinase Index 0.6 CK-MB (CK-2) 2.0 Troponin I 0.06 H B-Natriuretic Peptide Total Protein 5.5 L Albumin 2.2 L Urine Color Urine Appearance Urine pH Ur Specific [place] Urine Protein Urine Glucose (UA) Urine Ketones Urine Blood Urine Nitrite Urine Bilirubin Urine Urobilinogen Ur Leukocyte Esterase Urine WBC (Auto) Urine RBC (Auto) Urine Casts (Auto) U Epithel Cells (Auto) Urine Bacteria (Auto) Digoxin 0.59 L Current Medications Generic Name Dose Route Start Last Admin Trade Name Freq PRN Reason Stop Dose Admin Acetaminophen 650 mg 05/13/19 03:00 Tylenol Suppository - PA Q6H PRN FEVER Sodium Chloride 1,000 mls @ 75 mls/hr 05/12/19 14:56 05/13/19 06:13 Normal Saline - IV 75 mls/hr ASDIR MAUREEN Administration Piperacillin Sod/Tazobactam 50 mls @ 100 mls/hr 05/13/19 02:00 05/13/19 01:10 Sod 3.375 gm/ Dextrose IVPB 100 mls/hr Q8H-IV MAUREEN Administration Protocol Azithromycin 500 mg in 250 mls @ 250 mls/hr 05/12/19 19:30 05/12/19 20:50 Zithromax 500mg Ivpb (Pre-Docked) IVPB 250 mls/hr DAILY MAUREEN Administration Levothyroxine Sodium 25 mcg 05/13/19 07:00 05/13/19 06:08 Synthroid - PO 25 mcg DAILY@0700 MAUREEN Administration Intake & Output 05/10/19 05/11/19 05/12/19 05/13/19 23:59 23:59 23:59 23:59 Intake Total 1230 Output Total 200 Balance -200 1230 Weight 73.482 kg 73.391 kg
[2019-05-13 08:06] LABS: ALBUMIN 2.2 g/dl (3.4-5.0); BILIRUBIN,TOTAL 1.2 mg/dL (0.2-1); BLOOD UREA NITROGEN 9.2 mg/dL (7-18); CALCIUM 8.3 mg/dL (8.5-10.1); CREATININE 0.5 mg/dL (0.55-1.3); MAGNESIUM 1.6 mg/dL (1.8-2.4); N-TERMINAL BNP 2901.5 pg/ml (5-125); POTASSIUM 3.2 mmol/L (3.5-5.1); TOT PROT 5.6 g/dl (6.4-8.2)
--- NOTE | 2019-05-13 08:28 | PN ---
Progress Note, Physician Chief Complaint: Pneumonia CHF Hypokalemia Metabolic encephalopathy History of Present Illness: NAD, inbed SOB on exertion AxO x2 - Current Medication List Current Medications: Active Medications Acetaminophen (Tylenol Suppository -) 650 mg CA Q6H PRN PRN Reason: FEVER Albuterol/Ipratropium (Duoneb -) 1 amp NEB RQID [facility] Amlodipine Besylate (Norvasc -) 5 mg PO DAILY [facility] Digoxin (Lanoxin -) 0.125 mg PO DAILY [facility] Enalapril Maleate (Vasotec -) 20 mg PO DAILY [facility] Furosemide (Lasix Injection -) 40 mg IVPUSH BID@0600,1400 [facility] Sodium Chloride (Normal Saline -) 1,000 mls @ 75 mls/hr IV ASDIR [facility] Last Admin: 05/13/19 06:13 Dose: 75 mls/hr Piperacillin Sod/Tazobactam (Sod 3.375 gm/ Dextrose) 50 mls @ 100 mls/hr IVPB Q8H-IV MAUREEN; Protocol Last Admin: 05/13/19 01:10 Dose: 100 mls/hr Azithromycin (Zithromax 500mg Ivpb (Pre-Docked)) 500 mg in 250 mls @ 250 mls/ hr IVPB DAILY [facility] Last Admin: 05/12/19 20:50 Dose: 250 mls/hr Potassium Chloride (Potassium Chloride 10 Meq Premix Ivpb -) 10 meq in 100 mls @ 100 mls/hr IVPB Q60M [facility] Stop: 05/13/19 11:29 Levothyroxine Sodium (Synthroid -) 25 mcg PO DAILY@0700 [facility] Last Admin: 05/13/19 06:08 Dose: 25 mcg Metoprolol Succinate (Toprol Xl -) 50 mg PO DAILY [facility] Ondansetron HCl (Zofran -) 4 mg PO Q8H PRN PRN Reason: NAUSEA AND/OR VOMITING - Objective Vital Signs: Vital Signs Temperature 99.5 F 05/13/19 06:00 Pulse Rate 109 H 05/13/19 06:00 Respiratory Rate 22 H 05/13/19 06:00 Blood Pressure 155/52 L 05/13/19 06:00 O2 Sat by Pulse Oximetry (%) 97 05/13/19 01:30 Constitutional: Yes: Well Nourished, No Distress, Calm Cardiovascular: Yes: Regular Rate and Rhythm, Murmur (Grade III/) Respiratory: Yes: Regular Gastrointestinal: Yes: Normal Bowel Sounds, Soft Genitourinary: Yes: Incontinence Musculoskeletal: Yes: Muscle Weakness Extremities: Yes: WNL Edema: Yes Edema: LLE: Trace, RLE: Trace Peripheral Pulses WNL: Yes Neurological: Yes: Alert, Confusion Psychiatric: Yes: Alert Labs: CBC, BMP 05/13/19 07:00 05/13/19 07:00 INR, PTT INR 1.31 (0.83-1.09) H 05/12/19 08:40 Problem List - Problems (1) Pneumonia Assessment/Plan: -ID + pulmonary on board -IV abx -Acetaminophen for fever >100.0F -Bronchodilators -Nasal O2 to keep SpO>90% Problems reviewed: Yes Code(s): J18.9 - PNEUMONIA, UNSPECIFIED ORGANISM (2) Lesion of spleen Assessment/Plan: -Likely benign -Had similar finding on previous CT -Oncology has been consulted Problems reviewed: Yes Code(s): D73.9 - DISEASE OF SPLEEN, UNSPECIFIED (3) CAD (coronary artery disease) Assessment/Plan: -Cardiology on board -Tele monitor -Continue home meds Problems reviewed: Yes Code(s): I25.10 - ATHSCL HEART DISEASE OF [place] CORONARY ARTERY W/O ANG PCTRS (4) CHF exacerbation Assessment/Plan: -Furosemide 40 mg IV BID -Daily weights -low sodium diet -Fluid restriction Problems reviewed: Yes Code(s): I50.9 - HEART FAILURE, UNSPECIFIED (5) Dementia Problems reviewed: Yes Code(s): F03.90 - UNSPECIFIED DEMENTIA WITHOUT BEHAVIORAL DISTURBANCE (6) Hypokalemia Assessment/Plan: -KCL 10 meq x 3 -repeat labs today Problems reviewed: Yes Code(s): E87.6 - HYPOKALEMIA (7) Metabolic encephalopathy Assessment/Plan: -2/2 to pneumonia Problems reviewed: Yes Code(s): G93.41 - METABOLIC ENCEPHALOPATHY Assessment/Plan see problem list
[2019-05-13 09:08] LABS: INR 1.24 (0.83-1.09); PROTHROMBIN TIME (PATIENT) 14.7 SEC (9.7-13.0)
[2019-05-13 09:11] LABS: ACTIVATED PTT 23.7 SECONDS (25.2-36.5)
--- NOTE | 2019-05-13 09:17 | PN ---
Progress Note, Physician Chief Complaint: s/p fall History of Present Illness: incr sob (walking 10 feet) for past week or so at home. incr cough over baseline (not much phlegm). no cp. never palpitations. no signif swelling ex cigs - Current Medication List Current Medications: Active Medications Acetaminophen (Tylenol Suppository -) 650 mg [place] Q6H PRN PRN Reason: FEVER Albuterol/Ipratropium (Duoneb -) 1 amp NEB RQID [facility] Amlodipine Besylate (Norvasc -) 5 mg PO DAILY [facility] Digoxin (Lanoxin -) 0.125 mg PO DAILY [facility] Enalapril Maleate (Vasotec -) 20 mg PO DAILY [facility] Furosemide (Lasix Injection -) 40 mg IVPUSH BID@0600,1400 [facility] Sodium Chloride (Normal Saline -) 1,000 mls @ 75 mls/hr IV ASDIR [facility] Last Admin: 05/13/19 06:13 Dose: 75 mls/hr Piperacillin Sod/Tazobactam (Sod 3.375 gm/ Dextrose) 50 mls @ 100 mls/hr IVPB Q8H-IV MAUREEN; Protocol Last Admin: 05/13/19 01:10 Dose: 100 mls/hr Azithromycin (Zithromax 500mg Ivpb (Pre-Docked)) 500 mg in 250 mls @ 250 mls/ hr IVPB DAILY [facility] Last Admin: 05/12/19 20:50 Dose: 250 mls/hr Potassium Chloride (Potassium Chloride 10 Meq Premix Ivpb -) 10 meq in 100 mls @ 100 mls/hr IVPB Q60M [facility] Stop: 05/13/19 11:29 Levothyroxine Sodium (Synthroid -) 25 mcg PO DAILY@0700 [facility] Last Admin: 05/13/19 06:08 Dose: 25 mcg Metoprolol Succinate (Toprol Xl -) 50 mg PO DAILY [facility] Ondansetron HCl (Zofran -) 4 mg PO Q8H PRN PRN Reason: NAUSEA AND/OR VOMITING - Objective Vital Signs: Vital Signs Temperature 99.5 F 05/13/19 06:00 Pulse Rate 109 H 05/13/19 06:00 Respiratory Rate 22 H 05/13/19 06:00 Blood Pressure 155/52 L 05/13/19 06:00 O2 Sat by Pulse Oximetry (%) 100 05/13/19 08:36 Constitutional: Yes: No Distress, Calm Eyes: No: Sclera Icterus HENT: No: Nasal Congestion Cardiovascular: Yes: Regular Rate and Rhythm (decr intensity), S1, S2, Other ( PMI non diplaced). No: JVD, Gallop, Murmur Respiratory: Yes: CTA Bilaterally. No: Accessory Muscle Use, Rales, Wheezes Gastrointestinal: Yes: Normal Bowel Sounds, Soft. No: Tenderness Musculoskeletal: Yes: Other (No kyphosis) Extremities: No: Cold, Cyanosis Edema: No Integumentary: No: Jaundice Neurological: Yes: Alert, Oriented (x3) Psychiatric: No: Agitated Labs: CBC, BMP 05/13/19 07:00 05/13/19 07:00 INR, PTT INR 1.24 (0.83-1.09) H 05/13/19 07:00 Assessment/Plan echo 09/04: nl LV/EF, no RWMA. nl RV. nl LA. mild AI. no RVSP. 4 cm ao root, 4.1 cm ascending. echo 02/2019 tds, LV function severely reduced, severe global hypokinesis of LV, RV not well visualized, mild MR, mod AR echo 04/2019: mild LVH. grossly nl LVEF (50%). grossly nl RV. mild-mod AI. 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 orthostasis -was in svt in ER and also septic with PNA--? contributed to unstable hemodynamics at home -EF normal, low risk for V arrhythmia -monitor tele -no signs of ACS sepsis, pna, lactic acidosis: -abx per ID -sx's stable h/o tachycardia-induced CMP: -lvef sev reduced 02/2019, in setting of uncontrolled MAT on presentation of ? prolonged duratoin (arrhythmia is asymptomatic, pt had not had recent outpt followup) -EF normalized here on 05/06 echo -appears euvolemic currently, holding lasix due to low bp, sepsis currently. close monitoring of vol status. -rate control as doing, with BB -holding JOCELYNE for now, observe BP trend Multifocal atrial tach (MAT), PSVT (short RP): -presented in SVT (? 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 cont metopr (succinate 50 qd)--bp stable. -add diltiazem if remains rapid here -monitor on tele -TSH normal. -would not be a candidate for 1c use (flecainide) given prior low EF (and hi risk for CAD in future). could use amio but carries pulm toxicity risks given extensive copd. could consider AVN ablation with PPM if cannot adequately control HRs with tolerable doses of AVN blockers. -again disc'd med adherence importance with pt, in presence of family (done repeatedly in office as well), to avoid invasive procedures HTN: -holding home meds due to sepsis/low bp Possible CAD: -prior mibi 2012 reported low-risk area of (septal) ischemia and has been managed medically with no angina sx's -pt with extensive atherosclerotic aorta vascular disease -cont home bb, statin regimen needs clarification from office records. -ASA held in recent past when developed NSAID-related PUD (hi risk for recurrent bleeding) -intermediate trop elevation, possibly demand from sepsis/svt. does not appear to be acs. trend ce's on tele for now. echo pending. Thoracic and abdominal aorta aneurysms: -known ascending aorta aneurysm (4.1 cm), descending aorta aneurysm (5.2 cm), stable on recent ct 03/2019 -4.4 cm AAA, enlarged from 3.9 in 02/2018 -bp control, BB, statin as doing -would be high risk (maybe prohibitive) for open repair in any case (ascending aorta not amenable to endovascular approach) COPD, pulm HTN: -marked emphys changes on CT chest -dilated PA c/w pulm HTN -has refused home O2 repeatedly -cont suppl O2 here as doing RA: -on methotrexate
[2019-05-13] MEDS: KCL 10 MEQ IVPB 10 MEQ/100 ML INFUS.BAG IVPB SCH ×3 (09:33→14:28)
[2019-05-13] MEDS: amLODIPine BESYLATE 5 MG TABLET (FP) PO SCH (09:34)
[2019-05-13] MEDS: DIGOXIN 0.125 MG TABLET (FP) PO SCH (09:34)
[2019-05-13] MEDS: ENALAPRIL MALEATE 10 MG TABLET (FP) PO SCH (09:34)
[2019-05-13] MEDS: AZITHROMYCIN IVPB 500 MG/250 ML BAG IVPB SCH (09:34)
--- NOTE | 2019-05-13 10:37 | CONSULT ---
Consult Consult Specialty:: Hematology Referred by:: Medicine Reason for Consultation:: Splenic lesions noted on ST scan - History of Present Illness Chief Complaint: Presented with AMS History of Present Illness: Presented with suspected metabolic encephalopthy/?sepsis. Underwent CT abdomsn and found to have multiple lesions, suspicious for hemangiomata. 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: Dementia, Peripheral Neuropathy, TIA Cardio/Vascular: Yes: Aneurysm (3.8cm AAA), HTN (controlled w/ hydralazine), Hyperlipdemia Pulmonary: Yes: Asthma, COPD Gastrointestinal: Yes: Diverticulosis, Gastritis, Hiatal Hernia, Other ( hyperplastic sigmoid polyps removed 12/27) Hepatobiliary: Yes: Cholelithiasis (s/p lap choly), Other (fatty liver) Musculoskeletal: Yes: Other (neuropathy LE) Rheumatology: Yes: Rheumatoid Arthritis, Vasculitis (of the skin) - Past Surgical History Past Surgical History: Yes: Breast Biopsy (b/l, negative), Cholecystectomy (lap choly 05/04), Colonoscopy, Hernia Repair (umbilical hernia repair 05/04), Hysterectomy (noel/bso), Joint Replacement (Lt. THR w/ revision), Upper Endoscopy - Alcohol/Substance Use Hx Alcohol Use: No History of Substance Use: reports: None - Smoking History Smoking history: Former smoker Have you smoked in the past 12 months: No Aproximately how many cigarettes per day: 20 - Social History Usual Living Arrangement: With Spouse ADL: Family Assistance Occupation: retired [employer] History of Recent Travel: No Home Medications - Allergies Allergies/Adverse Reactions: Allergies Allergy/AdvReac Type Severity Reaction Status Date / Time Sulfa (Sulfonamide Allergy Hives Verified 03/09/18 18:06 Antibiotics) dipyridamole AdvReac Mild headache Verified 03/09/18 18:06 [From Persantine] indomethacin [From Indocin] AdvReac Mild headache Verified 03/09/18 18:06 - Home Medications Home Medications: Ambulatory Orders Amlodipine Besylate 5 mg PO DAILY 03/07/19 Digoxin [Lanoxin -] 0.125 mg PO DAILY 03/07/19 Furosemide [Lasix] 20 mg PO DAILY 03/07/19 Levothyroxine [Synthroid -] 0 mcg PO DAILY 03/07/19 Ondansetron [Zofran -] 4 mg PO PRN 03/07/19 Pantoprazole Sodium 40 mg PO DAILY 03/07/19 Albuterol 2.5/Ipratropium 0.5 [Duoneb -] 1 amp NEB RQID amp 03/14/19 Azithromycin [Zithromax 250mg Tablets -] 250 mg PO DAILY #5 tablet 03/14/19 Enalapril Maleate [Vasotec -] 20 mg PO DAILY #60 tablet 03/14/19 Methotrexate [Mexate -] 20 mg PO Mo@1000 tablet 03/14/19 Metoprolol Succinate [Toprol XL -] 50 mg PO DAILY #30 tab.sr.24h 03/14/19 Mirtazapine [Remeron -] 15 mg PO HS #30 tablet 03/14/19 predniSONE [Deltasone -] 10 mg PO DAILY #100 tablet 03/14/19 Physical Exam Vital Signs: Vital Signs Temperature 99.5 F 05/13/19 06:00 Pulse Rate 130 H 05/13/19 09:34 Respiratory Rate 22 H 05/13/19 06:00 Blood Pressure 155/52 L 05/13/19 06:00 O2 Sat by Pulse Oximetry (%) 100 05/13/19 08:36 Constitutional: Yes: Well Nourished, No Distress Eyes: Yes: Conjunctiva Clear HENT: Yes: Atraumatic, Normocephalic Neck: Yes: Trachea Midline. No: Lymphadenopathy Cardiovascular: Yes: Regular Rate and Rhythm, S1, S2. No: Murmur, Rub Respiratory: Yes: Regular. 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 No other indication of lymphoproliferative neoplastic disease, or other primary hematological issues. Note that a CT in 2017 reported splenic cysts - suggest radiologist reviews and compares all available studies. Would only consider further imaging or investigations of lesions if there is evidence of progression or change.
[2019-05-13] MEDS: ALBUTEROL SO4 2.5/IPRATROPIUM 0.5 INH SOL 3 ML VIAL.NEB. NEB SCH ×3 (12:34→21:00)
[2019-05-13] MEDS ORDERED: FUROSEMIDE 40 MG/4 ML INJECTABLE VIAL IVPUSH SCH (14:00)
--- NOTE | 2019-05-13 14:53 | EKG ---
Test Reason : Blood Pressure : / mmHG Vent. Rate : 181 BPM Atrial Rate : 340 BPM P-R Int : 000 ms QRS Dur : 066 ms QT Int : 254 ms P-R-T Axes : 000 046 168 degrees QTc Int : 441 ms SUPRAVENTRICULAR TACHYCARDIA SEPTAL INFARCT (CITED ON OR BEFORE 09-MAR-2018) ABNORMAL ECG WHEN COMPARED WITH ECG OF 12-MAY-2019 08:33, T WAVE INVERSION NOW EVIDENT IN INFERIOR LEADS Confirmed by LILIANE LOJA, CANDIDO ([id number]) on 05/13/2019 2:53:12 PM Referred By: Confirmed By:CANDIDO MOMIN MD
--- NOTE | 2019-05-13 16:49 | PN ---
Progress Note, Physician History of Present Illness: AWAKE, ALERT SEATED IN BED OFFERS NO COMPLAINTS TEMPS, WBC DOWN [place]IONE[place]A AG (-) - Current Medication List Current Medications: Active Medications Acetaminophen (Tylenol Suppository -) 650 mg IN Q6H PRN PRN Reason: FEVER Albuterol/Ipratropium (Duoneb -) 1 amp NEB RQID [facility] Last Admin: 05/13/19 12:34 Dose: 1 amp Amlodipine Besylate (Norvasc -) 5 mg PO DAILY [facility] Last Admin: 05/13/19 09:34 Dose: 5 mg Digoxin (Lanoxin -) 0.125 mg PO DAILY [facility] Last Admin: 05/13/19 09:34 Dose: 0.125 mg Enalapril Maleate (Vasotec -) 20 mg PO DAILY [facility] Last Admin: 05/13/19 09:34 Dose: 20 mg Furosemide (Lasix Injection -) 40 mg IVPUSH DAILY [facility] Piperacillin Sod/Tazobactam (Sod 3.375 gm/ Dextrose) 50 mls @ 100 mls/hr IVPB Q8H-IV [facility]; Protocol Last Admin: 05/13/19 09:35 Dose: 100 mls/hr Levothyroxine Sodium (Synthroid -) 25 mcg PO DAILY@0700 [facility] Last Admin: 05/13/19 06:08 Dose: 25 mcg Metoprolol Succinate (Toprol Xl -) 50 mg PO DAILY [facility] Last Admin: 05/13/19 09:34 Dose: 50 mg Ondansetron HCl (Zofran -) 4 mg PO Q8H PRN PRN Reason: NAUSEA AND/OR VOMITING - Objective Vital Signs: Vital Signs Temperature 99.5 F 05/13/19 14:00 Pulse Rate 110 H 05/13/19 14:00 Respiratory Rate 20 05/13/19 14:00 Blood Pressure 131/77 05/13/19 14:00 O2 Sat by Pulse Oximetry (%) 97 05/13/19 09:00 Constitutional: Yes: No Distress Cardiovascular: Yes: Regular Rate and Rhythm, S1, S2 Respiratory: Yes: Rhonchi Gastrointestinal: Yes: Normal Bowel Sounds, Soft Labs: CBC, BMP 05/13/19 07:00 05/13/19 07:00 INR, PTT INR 1.24 (0.83-1.09) H 05/13/19 07:00 Assessment/Plan PNEUMONIA FEVER/ LEUKOCYTOSIS IMPROVED LACTIC ACIDOSIS RESOLVED TOXIC METABOLIC ENCEPHALOPATHY RESOLVED CONTINUE ZOSYN D/C ZITHROMAX
[2019-05-14] MEDS ORDERED: PIPERACILLIN/TAZOBACTAM 3.375 GM VIAL IVPB ONE ×3 (02:16→16:43)
[2019-05-14] MEDS ORDERED: DEXTROSE 5%-WATER - 50 ML IVPB ONE ×3 (02:16→16:43)
[2019-05-14] MEDS: PIPERACILLIN/TAZOB 3.375 GM 3.375 GM in DEXTROSE 5%-WATER - 50 ML IVPB SCH ×3 (02:23→17:02)
[2019-05-14] MEDS: LEVOTHYROXINE NA 25 MCG TABLET (FP) PO SCH (06:18)
[2019-05-14] MEDS: ALBUTEROL SO4 2.5/IPRATROPIUM 0.5 INH SOL 3 ML VIAL.NEB. NEB SCH (09:25)
[2019-05-14] MEDS: amLODIPine BESYLATE 5 MG TABLET (FP) PO SCH (10:25)
[2019-05-14] MEDS: FUROSEMIDE 40 MG/4 ML INJECTABLE VIAL IVPUSH SCH (10:25)
[2019-05-14] MEDS: ENALAPRIL MALEATE 10 MG TABLET (FP) PO SCH (10:25)
[2019-05-14] MEDS: DIGOXIN 0.125 MG TABLET (FP) PO SCH (10:25)
[2019-05-14] MEDS ORDERED: dilTIAZem HCL 25 MG/5 ML - 5 ML VIAL IVPUSH ONE (10:41)
--- NOTE | 2019-05-14 10:47 | PN ---
Progress Note, Physician Chief Complaint: fall History of Present Illness: moaning slightly today, awake. says she feels malaise and a bit sob. "a little" wheezing. still coughing denies cp, syncope ex cigs - Current Medication List Current Medications: Active Medications Acetaminophen (Tylenol Suppository -) 650 mg [place] Q6H PRN PRN Reason: FEVER Albuterol/Ipratropium (Duoneb -) 1 amp NEB RQID [facility] Last Admin: 05/14/19 09:25 Dose: 1 amp Amlodipine Besylate (Norvasc -) 5 mg PO DAILY [facility] Last Admin: 05/14/19 10:25 Dose: 5 mg Digoxin (Lanoxin -) 0.125 mg PO DAILY [facility] Last Admin: 05/14/19 10:25 Dose: 0.125 mg Diltiazem HCl (Cardizem Injection -) 10 mg IVPUSH ONCE ONE Stop: 05/14/19 10:42 Enalapril Maleate (Vasotec -) 20 mg PO DAILY [facility] Last Admin: 05/14/19 10:25 Dose: 20 mg Furosemide (Lasix Injection -) 40 mg IVPUSH DAILY [facility] Last Admin: 05/14/19 10:25 Dose: 40 mg Piperacillin Sod/Tazobactam (Sod 3.375 gm/ Dextrose) 50 mls @ 100 mls/hr IVPB Q8H-IV [facility]; Protocol Last Admin: 05/14/19 10:25 Dose: 100 mls/hr Levothyroxine Sodium (Synthroid -) 25 mcg PO DAILY@0700 [facility] Last Admin: 05/14/19 06:18 Dose: 25 mcg Metoprolol Succinate (Toprol Xl -) 50 mg PO DAILY [facility] Last Admin: 05/14/19 10:25 Dose: 50 mg Ondansetron HCl (Zofran -) 4 mg PO Q8H PRN PRN Reason: NAUSEA AND/OR VOMITING - Objective Vital Signs: Vital Signs Temperature 98.1 F 05/14/19 06:00 Pulse Rate 135 H 05/14/19 10:25 Respiratory Rate 20 05/14/19 06:00 Blood Pressure 115/70 05/14/19 06:00 O2 Sat by Pulse Oximetry (%) 95 05/13/19 21:00 Constitutional: Yes: No Distress, Calm Eyes: No: Sclera Icterus HENT: No: Nasal Congestion Cardiovascular: Yes: Regular Rate and Rhythm, S1, S2, Other (PMI non diplaced). No: Gallop, Murmur Respiratory: Yes: CTA Bilaterally. No: Accessory Muscle Use, Rales, Wheezes Gastrointestinal: Yes: Normal Bowel Sounds, Soft. No: Tenderness Musculoskeletal: Yes: Other (No kyphosis) Extremities: No: Cyanosis Edema: No Integumentary: No: Jaundice Neurological: Yes: Alert, Oriented (x3) Psychiatric: No: Agitated Labs: CBC, BMP 05/13/19 07:00 05/13/19 07:00 INR, PTT INR 1.24 (0.83-1.09) H 05/13/19 07:00 Assessment/Plan echo 09/04: nl LV/EF, no RWMA. nl RV. nl LA. mild AI. no RVSP. 4 cm ao root, 4.1 cm ascending. echo 02/2019 tds, LV function severely reduced, severe global hypokinesis of LV, RV not well visualized, mild MR, mod AR echo 04/2019: mild LVH. grossly nl LVEF (50%). grossly nl RV. mild-mod AI. 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 orthostasis -was in svt in ER and also septic with PNA--? contributed to unstable hemodynamics at home -EF normal, low risk for V arrhythmia -monitor tele -no signs of ACS sepsis, pna, lactic acidosis: -abx per ID -sx's stable h/o tachycardia-induced CMP: -lvef sev reduced 02/2019, in setting of uncontrolled MAT on presentation of ? prolonged duratoin (arrhythmia is asymptomatic, pt had not had recent outpt followup) -EF normalized here on 05/06 echo -appears euvolemic currently, holding lasix due to low bp, sepsis currently. close monitoring of vol status. -rate control as doing, with BB -holding JOCELYNE for now, observe BP trend Multifocal atrial tach (MAT), PSVT (short RP): -presented in SVT (? 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 -cont home digoxin (level good). cont metopr (succinate 50 qd)--bp stable. -monitor on tele -TSH normal. check lytes--replete K prn -would not be a candidate for 1c use (flecainide) given prior low EF (and hi risk for CAD in future). could use amio but carries pulm toxicity risks given extensive copd. could consider AVN ablation with PPM if cannot adequately control HRs with tolerable doses of AVN blockers. -again disc'd med adherence importance with pt, in presence of family (done repeatedly in office as well), to avoid invasive procedures HTN: -meds adjusted here to incr AVN blockers -same plan, observe trend Possible CAD: -prior mibi 2012 reported low-risk area of (septal) ischemia and has been managed medically with no angina sx's -pt with extensive atherosclerotic aorta vascular disease -cont home bb, statin regimen needs clarification from office records. -ASA held in recent past when developed NSAID-related PUD (hi risk for recurrent bleeding) -intermediate trop elevation, possibly demand from sepsis/svt. does not appear to be acs. trend ce's on tele for now. echo pending. Thoracic and abdominal aorta aneurysms: -known ascending aorta aneurysm (4.1 cm), descending aorta aneurysm (5.2 cm), stable on recent ct 03/2019 -4.4 cm AAA, enlarged from 3.9 in 02/2018 -bp control, BB, statin as doing -would be high risk (maybe prohibitive) for open repair in any case (ascending aorta not amenable to endovascular approach) COPD, pulm HTN: -marked emphys changes on CT chest -dilated PA c/w pulm HTN -has refused home O2 repeatedly -cont suppl O2 here as doing RA: -on methotrexate
--- NOTE | 2019-05-14 10:51 | PN ---
Progress Note, Physician Chief Complaint: Pneumonia CHF Hypokalemia Metabolic encephalopathy History of Present Illness: NAD, feels better, breathing improved Episode of SVT's this AM. Seen by cardiology, given Diltiazem IVP + started on PO daily dose SOB on exertion, + Nasal O2 AxO x2 at bedside - Current Medication List Current Medications: Active Medications Acetaminophen (Tylenol Suppository -) 650 mg [place] Q6H PRN PRN Reason: FEVER Albuterol/Ipratropium (Duoneb -) 1 amp NEB RQID [facility] Last Admin: 05/14/19 09:25 Dose: 1 amp Amlodipine Besylate (Norvasc -) 5 mg PO DAILY [facility] Last Admin: 05/14/19 10:25 Dose: 5 mg Digoxin (Lanoxin -) 0.125 mg PO DAILY [facility] Last Admin: 05/14/19 10:25 Dose: 0.125 mg Diltiazem HCl (Cardizem Cd -) 120 mg PO DAILY [facility] Enalapril Maleate (Vasotec -) 20 mg PO DAILY [facility] Last Admin: 05/14/19 10:25 Dose: 20 mg Furosemide (Lasix Injection -) 40 mg IVPUSH DAILY [facility] Last Admin: 05/14/19 10:25 Dose: 40 mg Piperacillin Sod/Tazobactam (Sod 3.375 gm/ Dextrose) 50 mls @ 100 mls/hr IVPB Q8H-IV [facility]; Protocol Last Admin: 05/14/19 10:25 Dose: 100 mls/hr Levothyroxine Sodium (Synthroid -) 25 mcg PO DAILY@0700 [facility] Last Admin: 05/14/19 06:18 Dose: 25 mcg Metoprolol Succinate (Toprol Xl -) 50 mg PO DAILY [facility] Last Admin: 05/14/19 10:25 Dose: 50 mg Ondansetron HCl (Zofran -) 4 mg PO Q8H PRN PRN Reason: NAUSEA AND/OR VOMITING - Objective Vital Signs: Vital Signs Temperature 98.1 F 05/14/19 06:00 Pulse Rate 135 H 05/14/19 10:25 Respiratory Rate 20 05/14/19 06:00 Blood Pressure 115/70 05/14/19 06:00 O2 Sat by Pulse Oximetry (%) 95 05/13/19 21:00 Constitutional: Yes: Well Nourished, No Distress, Calm Cardiovascular: Yes: Regular Rate and Rhythm Respiratory: Yes: Regular, On Nasal O2, Rales (BLL), SOB on Exertion Gastrointestinal: Yes: Normal Bowel Sounds, Soft Genitourinary: Yes: Incontinence Musculoskeletal: Yes: Muscle Weakness Extremities: Yes: WNL Edema: Yes Edema: LLE: Trace, RLE: Trace Peripheral Pulses WNL: Yes Neurological: Yes: Alert, Pre-Existing Deficit Psychiatric: Yes: Alert Labs: CBC, BMP 05/13/19 07:00 05/13/19 07:00 INR, PTT INR 1.24 (0.83-1.09) H 05/13/19 07:00 Problem List - Problems (1) Pneumonia Assessment/Plan: -ID + pulmonary on board -IV abx -Acetaminophen for fever >100.0F -Bronchodilators -Nasal O2 to keep SpO>90% Problems reviewed: Yes Code(s): J18.9 - PNEUMONIA, UNSPECIFIED ORGANISM (2) Lesion of spleen Assessment/Plan: -Likely benign -Had similar finding on previous CT -Oncology has been consulted Problems reviewed: Yes Code(s): D73.9 - DISEASE OF SPLEEN, UNSPECIFIED (3) CAD (coronary artery disease) Assessment/Plan: -Cardiology on board -Tele monitor -Continue home meds Problems reviewed: Yes Code(s): I25.10 - ATHSCL HEART DISEASE OF [place] CORONARY ARTERY W/O ANG PCTRS (4) CHF exacerbation Assessment/Plan: -Furosemide 40 mg IV BID -Daily weights -low sodium diet -Fluid restriction Problems reviewed: Yes Code(s): I50.9 - HEART FAILURE, UNSPECIFIED (5) Dementia Problems reviewed: Yes Code(s): F03.90 - UNSPECIFIED DEMENTIA WITHOUT BEHAVIORAL DISTURBANCE (6) Hypokalemia Assessment/Plan: -resolved -Monitor trend Problems reviewed: Yes Code(s): E87.6 - HYPOKALEMIA (7) Metabolic encephalopathy Assessment/Plan: -2/2 to pneumonia Problems reviewed: Yes Code(s): G93.41 - METABOLIC ENCEPHALOPATHY Assessment/Plan see problem list
[2019-05-14 12:01] LABS: BLOOD UREA NITROGEN 11.2 mg/dL (7-18); CALCIUM 8.4 mg/dL (8.5-10.1); CREATININE 0.5 mg/dL (0.55-1.3); POTASSIUM 3.5 mmol/L (3.5-5.1)
[2019-05-14] MEDS: ACETAMINOPHEN 325 MG TABLET (FP) PO PRN (13:40)
[2019-05-14] MEDS ORDERED: ACETAMINOPHEN 325 MG TABLET (FP) ONE (13:42)
[2019-05-14] MEDS: LEVALBUTEROL HCL 0.63 MG/3 ML VIAL.NEB. IH SCH ×3 (14:00→19:38)
[2019-05-14] MEDS: IPRATROPIUM BR 0.02% 0.5 MG/2.5 ML VIAL.NEB. NEB SCH ×3 (14:00→19:38)
[2019-05-15] MEDS ORDERED: PIPERACILLIN/TAZOBACTAM 3.375 GM VIAL IVPB ONE ×3 (03:14→17:20)
[2019-05-15] MEDS ORDERED: DEXTROSE 5%-WATER - 50 ML IVPB ONE ×3 (03:14→17:21)
[2019-05-15] MEDS: ACETAMINOPHEN 325 MG TABLET (FP) PO PRN ×2 (03:31→13:42)
[2019-05-15] MEDS: PIPERACILLIN/TAZOB 3.375 GM 3.375 GM in DEXTROSE 5%-WATER - 50 ML IVPB SCH ×3 (03:31→17:25)
[2019-05-15] MEDS: LEVOTHYROXINE NA 25 MCG TABLET (FP) PO SCH (06:40)
[2019-05-15] MEDS: IPRATROPIUM BR 0.02% 0.5 MG/2.5 ML VIAL.NEB. NEB SCH ×3 (07:35→20:50)
[2019-05-15] MEDS: LEVALBUTEROL HCL 0.63 MG/3 ML VIAL.NEB. IH SCH ×3 (07:52→21:12)
[2019-05-15] MEDS: FUROSEMIDE 40 MG/4 ML INJECTABLE VIAL IVPUSH SCH (10:00)
[2019-05-15] MEDS: amLODIPine BESYLATE 5 MG TABLET (FP) PO SCH (10:45)
[2019-05-15] MEDS: ENALAPRIL MALEATE 10 MG TABLET (FP) PO SCH (10:45)
[2019-05-15] MEDS: DIGOXIN 0.125 MG TABLET (FP) PO SCH (10:46)
--- NOTE | 2019-05-15 11:50 | PN ---
Progress Note, Physician Chief Complaint: sob, fall History of Present Illness: fever 101 yest. says she feels better today (no malaise, less sob) feet swollen no cp ex cigs - Current Medication List Current Medications: Active Medications Acetaminophen (Tylenol -) 650 mg PO Q4H PRN PRN Reason: PAIN Last Admin: 05/15/19 03:31 Dose: 650 mg Amlodipine Besylate (Norvasc -) 5 mg PO DAILY [facility] Last Admin: 05/15/19 10:45 Dose: 5 mg Digoxin (Lanoxin -) 0.125 mg PO DAILY [facility] Last Admin: 05/15/19 10:46 Dose: 0.125 mg Diltiazem HCl (Cardizem Cd -) 120 mg PO DAILY [facility] Last Admin: 05/15/19 10:46 Dose: 120 mg Enalapril Maleate (Vasotec -) 20 mg PO DAILY [facility] Last Admin: 05/15/19 10:45 Dose: 20 mg Furosemide (Lasix Injection -) 40 mg IVPUSH DAILY [facility] Last Admin: 05/15/19 10:00 Dose: 40 mg Piperacillin Sod/Tazobactam (Sod 3.375 gm/ Dextrose) 50 mls @ 100 mls/hr IVPB Q8H-IV [facility]; Protocol Last Admin: 05/15/19 10:45 Dose: 100 mls/hr Ipratropium [place] (Atrovent 0.02% Nebulizer -) 1 amp NEB RTID [facility] Last Admin: 05/15/19 07:35 Dose: 1 amp Levalbuterol HCl (Xopenex) 0.63 mg IH RTID [facility] Last Admin: 05/15/19 07:52 Dose: Not Given Levothyroxine Sodium (Synthroid -) 25 mcg PO DAILY@0700 [facility] Last Admin: 05/15/19 06:40 Dose: 25 mcg Metoprolol Succinate (Toprol Xl -) 50 mg PO DAILY [facility] Last Admin: 05/15/19 10:46 Dose: 50 mg Ondansetron HCl (Zofran -) 4 mg PO Q8H PRN PRN Reason: NAUSEA AND/OR VOMITING - Objective Vital Signs: Vital Signs Temperature 98.7 F 05/15/19 05:58 Pulse Rate 110 H 05/15/19 10:46 Respiratory Rate 20 05/15/19 09:00 Blood Pressure 147/64 05/15/19 05:58 O2 Sat by Pulse Oximetry (%) 94 L 05/15/19 09:00 Constitutional: Yes: No Distress, Calm Eyes: No: Sclera Icterus HENT: No: Nasal Congestion Cardiovascular: Yes: Regular Rate and Rhythm, S1, S2, Other (PMI non diplaced). No: Gallop, Murmur Respiratory: Yes: CTA Bilaterally (decr intensity diffusely). No: Accessory Muscle Use, Rales, Wheezes Gastrointestinal: Yes: Normal Bowel Sounds, Soft. No: Tenderness Musculoskeletal: Yes: Other (No kyphosis) Extremities: No: Cold, Cyanosis Edema: Yes (2+ ankles) Integumentary: No: Jaundice Neurological: Yes: Alert. No: Seizure Psychiatric: No: Agitated Labs: CBC, BMP 05/13/19 07:00 05/14/19 11:25 INR, PTT INR 1.24 (0.83-1.09) H 05/13/19 07:00 Assessment/Plan echo 09/04: nl LV/EF, no RWMA. nl RV. nl LA. mild AI. no RVSP. 4 cm ao root, 4.1 cm ascending. echo 02/2019 tds, LV function severely reduced, severe global hypokinesis of LV, RV not well visualized, mild MR, mod AR echo 04/2019: mild LVH. grossly nl LVEF (50%). grossly nl RV. mild-mod AI. 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 orthostasis -was in svt in ER and also septic with PNA--? contributed to unstable hemodynamics at home -EF normal, low risk for V arrhythmia -monitor tele -no signs of ACS sepsis, pna, lactic acidosis: -abx per ID -sx's stable h/o tachycardia-induced CMP: -lvef sev reduced 02/2019, in setting of uncontrolled MAT on presentation of ? prolonged duratoin (arrhythmia is asymptomatic, pt had not had recent outpt followup) -EF normalized here on 05/06 echo -appears euvolemic currently, holding lasix due to low bp, sepsis currently. close monitoring of vol status. -rate control as doing, with BB -holding JOCELYNE for now, observe BP trend Multifocal atrial tach (MAT), PSVT (short RP): -presented in SVT (? 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 -cont tele today -TSH normal. check lytes--replete K prn -would not be a candidate for 1c use (flecainide) given prior low EF (and hi risk for CAD in future). could use amio but carries pulm toxicity risks given extensive copd. could consider AVN ablation with PPM if cannot adequately control HRs with tolerable doses of AVN blockers. -again disc'd med adherence importance with pt, in presence of family (done repeatedly in office as well), to avoid invasive procedures HTN: -meds adjusted here to incr AVN blockers -bp's up 170s yest--enalapril resumed. -iv diuresis started. -bp controlled at present--same plan edema, ? acute HFpEF: -no prior HF history but mult RFs -sob here sec to PNA (with baseline signif copd on imaging) -signif pedal edema here, starting CCB (critical med to control HR/prevent recurrent CMP). has known h/o venous ins'y in past--will need maintenance lasix -cont lasix 40 iv qd for now Possible CAD: -prior mibi 2012 reported low-risk area of (septal) ischemia and has been managed medically with no angina sx's -pt with extensive atherosclerotic aorta vascular disease -cont home bb, statin regimen needs clarification from office records. -ASA held in recent past when developed NSAID-related PUD (hi risk for recurrent bleeding) -intermediate trop elevation, possibly demand from sepsis/svt. does not appear to be acs. trend ce's on tele for now. echo pending. Thoracic and abdominal aorta aneurysms: -known ascending aorta aneurysm (4.1 cm), descending aorta aneurysm (5.2 cm), stable on recent ct 03/2019 -4.4 cm AAA, enlarged from 3.9 in 02/2018 -bp control, BB, statin as doing -would be high risk (maybe prohibitive) for open repair in any case (ascending aorta not amenable to endovascular approach) COPD, pulm HTN: -marked emphys changes on CT chest -dilated PA c/w pulm HTN -has refused home O2 repeatedly -cont suppl O2 here as doing RA: -on methotrexate
--- NOTE | 2019-05-15 12:39 | PN ---
Progress Note, Physician Chief Complaint: patient seen and examined - Current Medication List Current Medications: Active Medications Acetaminophen (Tylenol -) 650 mg PO Q4H PRN PRN Reason: PAIN Last Admin: 05/15/19 03:31 Dose: 650 mg Amlodipine Besylate (Norvasc -) 5 mg PO DAILY [facility] Last Admin: 05/15/19 10:45 Dose: 5 mg Digoxin (Lanoxin -) 0.125 mg PO DAILY [facility] Last Admin: 05/15/19 10:46 Dose: 0.125 mg Diltiazem HCl (Cardizem Cd -) 120 mg PO DAILY [facility] Last Admin: 05/15/19 10:46 Dose: 120 mg Enalapril Maleate (Vasotec -) 20 mg PO DAILY [facility] Last Admin: 05/15/19 10:45 Dose: 20 mg Furosemide (Lasix Injection -) 40 mg IVPUSH DAILY [facility] Last Admin: 05/15/19 10:00 Dose: 40 mg Piperacillin Sod/Tazobactam (Sod 3.375 gm/ Dextrose) 50 mls @ 100 mls/hr IVPB Q8H-IV [facility]; Protocol Last Admin: 05/15/19 10:45 Dose: 100 mls/hr Ipratropium [place] (Atrovent 0.02% Nebulizer -) 1 amp NEB RTID [facility] Last Admin: 05/15/19 07:35 Dose: 1 amp Levalbuterol HCl (Xopenex) 0.63 mg IH RTID [facility] Last Admin: 05/15/19 07:52 Dose: Not Given Levothyroxine Sodium (Synthroid -) 25 mcg PO DAILY@0700 [facility] Last Admin: 05/15/19 06:40 Dose: 25 mcg Methotrexate ([place]ate -) 20 mg PO Q7D [facility] Metoprolol Succinate (Toprol Xl -) 50 mg PO DAILY [facility] Last Admin: 05/15/19 10:46 Dose: 50 mg Ondansetron HCl (Zofran -) 4 mg PO Q8H PRN PRN Reason: NAUSEA AND/OR VOMITING - Objective Vital Signs: Vital Signs Temperature 98.7 F 05/15/19 05:58 Pulse Rate 110 H 05/15/19 10:46 Respiratory Rate 20 05/15/19 09:00 Blood Pressure 147/64 05/15/19 05:58 O2 Sat by Pulse Oximetry (%) 94 L 05/15/19 09:00 Constitutional: Yes: Calm, Thin Cardiovascular: Yes: Regular Rate and Rhythm, S1, S2 Respiratory: Yes: Diminished Gastrointestinal: Yes: Normal Bowel Sounds, Soft Labs: CBC, BMP 05/13/19 07:00 05/14/19 11:25 INR, PTT INR 1.24 (0.83-1.09) H 05/13/19 07:00 Problem List - Problems (1) Change in mental status Assessment/Plan: toxic metabolic encephalopathy secondary ro PNA leukocytosis improving lactic acidosis resolved on iv zosyn Microbiology 05/12/19 21:10 Urine For Antigen Detection Legionella Antigen - Final 05/12/19 21:10 Urine For Antigen Detection Streptococcus pneumoniae Antigen (M - Final 05/12/19 10:20 Urine - Urine - Catheterized Urine Culture - Final NO GROWTH OBTAINED 05/12/19 08:40 Blood - Peripheral Venous Blood Culture - Preliminary NO GROWTH OBTAINED AFTER 72 HOURS, INCUBATION TO CONTINUE FOR 2 DAYS. 05/12/19 08:40 Blood - Peripheral Venous Blood Culture - Preliminary NO GROWTH OBTAINED AFTER 72 HOURS, INCUBATION TO CONTINUE FOR 2 DAYS. Code(s): R41.82 - ALTERED MENTAL STATUS, UNSPECIFIED (2) Lesion of spleen Assessment/Plan: appeciate heme evaluation Code(s): D73.9 - DISEASE OF SPLEEN, UNSPECIFIED (3) Hypothyroid Assessment/Plan: tsh synthroid Code(s): E03.9 - HYPOTHYROIDISM, UNSPECIFIED (4) CAD (coronary artery disease) Assessment/Plan: home medications restarted Code(s): I25.10 - ATHSCL HEART DISEASE OF [place] CORONARY ARTERY W/O ANG PCTRS
[2019-05-15] MEDS ORDERED: METHOTREXATE 2.5 MG TABLET PO SCH (12:45)
--- NOTE | 2019-05-15 13:00 | CON.PULM ---
Consult Consult Specialty:: PULM/CCM Referred by:: AIMEE Reason for Consultation:: SOB - History of Present Illness Chief Complaint: AMS History of Present Illness: 74 F, COPD due to previous smoking history, CHF, AAA, Thoracic Aneurysm, HTN, HLD, Dementia, Hypothyroidism, RA, and Chronic Pain. Admitted via the ER due to altered mental status after being found down at home by her . At this time no further details can be obtained as the patient is a poor historian. At present she is awake and conversant but is not aware of why she is in the hospital. She was transiently placed on NIPPV support but is currently comfortable on NC O2. She denies SOB, cough, CP, wheezing, etc at this time. 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: Dementia, Peripheral Neuropathy, TIA Cardio/Vascular: Yes: Aneurysm (3.8cm AAA), HTN (controlled w/ hydralazine), Hyperlipdemia Pulmonary: Yes: Asthma, COPD Gastrointestinal: Yes: Diverticulosis, Gastritis, Hiatal Hernia, Other ( hyperplastic sigmoid polyps removed 12/27) Hepatobiliary: Yes: Cholelithiasis (s/p lap choly), Other (fatty liver) Musculoskeletal: Yes: Other (neuropathy LE) Rheumatology: Yes: Rheumatoid Arthritis, Vasculitis (of the skin) - Past Surgical History Past Surgical History: Yes: Breast Biopsy (b/l, negative), Cholecystectomy (lap choly 05/04), Colonoscopy, Hernia Repair (umbilical hernia repair 05/04), Hysterectomy (noel/bso), Joint Replacement (Lt. 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 [employer] History of Recent Travel: No Home Medications - Allergies Allergies/Adverse Reactions: Allergies Allergy/AdvReac Type Severity Reaction Status Date / Time Sulfa (Sulfonamide Allergy Hives Verified 03/09/18 18:06 Antibiotics) dipyridamole AdvReac Mild headache Verified 03/09/18 18:06 [From Persantine] indomethacin [From Indocin] AdvReac Mild headache Verified 03/09/18 18:06 - Home Medications Home Medications: Ambulatory Orders Amlodipine Besylate 5 mg PO DAILY 03/07/19 Digoxin [Lanoxin -] 0.125 mg PO DAILY 03/07/19 Furosemide [Lasix] 20 mg PO DAILY 03/07/19 Levothyroxine [Synthroid -] 0 mcg PO DAILY 03/07/19 Ondansetron [Zofran -] 4 mg PO PRN 03/07/19 Pantoprazole Sodium 40 mg PO DAILY 03/07/19 Albuterol 2.5/Ipratropium 0.5 [Duoneb -] 1 amp NEB RQID amp 03/14/19 Azithromycin [Zithromax 250mg Tablets -] 250 mg PO DAILY #5 tablet 03/14/19 Enalapril Maleate [Vasotec -] 20 mg PO DAILY #60 tablet 03/14/19 Methotrexate [Mexate -] 20 mg PO Mo@1000 tablet 03/14/19 Metoprolol Succinate [Toprol XL -] 50 mg PO DAILY #30 tab.sr.24h 03/14/19 Mirtazapine [Remeron -] 15 mg PO HS #30 tablet 03/14/19 predniSONE [Deltasone -] 10 mg PO DAILY #100 tablet 03/14/19 Review of Systems - Review of Systems Constitutional: reports: Malaise, Weakness. denies: Night Sweats Eyes: reports: No Symptoms HENT: reports: No Symptoms Neck: reports: No Symptoms Cardiovascular: denies: Chest Pain, Edema, Palpitations, Shortness of Breath Respiratory: reports: Cough. denies: Hemoptysis, Orthopnea, PND, Snoring, SOB, SOB on Exertion, Wheezing Gastrointestinal: reports: No Symptoms Genitourinary: reports: No Symptoms Breasts: reports: No Symptoms Reported Musculoskeletal: reports: No Symptoms Integumentary: reports: No Symptoms Neurological: reports: No Symptoms Endocrine: reports: No Symptoms Hematology/Lymphatic: reports: No Symptoms Psychiatric: reports: No Symptoms Physical Exam Vital Sings: Vital Signs Temperature 98.7 F 05/15/19 05:58 Pulse Rate 110 H 05/15/19 10:46 Respiratory Rate 20 05/15/19 09:00 Blood Pressure 147/64 05/15/19 05:58 O2 Sat by Pulse Oximetry (%) 94 L 05/15/19 09:00 Constitutional: Yes: No Distress, Other (confused ) Eyes: Yes: Conjunctiva Clear, EOM Intact HENT: Yes: Atraumatic, Normocephalic Neck: Yes: Supple, Trachea Midline Cardiovascular: Yes: Regular Rate and Rhythm Respiratory: Yes: Diminished. No: Accessory Muscle Use, Rales, Rhonchi, SOB, SOB on Exertion, Stridor, Tachypnea, Wheezes ...Inspection: Yes: WNL ...Clubbing: No Gastrointestinal: Yes: Normal Bowel Sounds, Soft Renal/: Yes: WNL Musculoskeletal: Yes: WNL Extremities: Yes: WNL Edema: Yes Peripheral Pulses WNL: Yes Integumentary: Yes: WNL Neurological: Yes: Alert, Confusion Labs: CBC, BMP 05/13/19 07:00 05/14/19 11:25 ABG Results ABG pH 7.44 (7.35-7.45) 05/13/19 06:30 ABG pCO2 at Pt Temp 44.6 mmHg (35-45) 05/13/19 06:30 ABG pO2 at Pt Temp 87.2 mmHg (80-100) 05/13/19 06:30 ABG HCO3 29.8 mmol/L (22-27) H 05/13/19 06:30 ABG O2 Sat (Measured) 96.5 % (95-98) 05/13/19 06:30 ABG O2 Content 16.8 % vol 05/13/19 06:30 ABG Base Excess 5.3 meq/l (-2-2) H 05/13/19 06:30 Imaging - Results Chest X-ray: Report Reviewed, Image Reviewed Problem List - Problems (1) Change in mental status Code(s): R41.82 - ALTERED MENTAL STATUS, UNSPECIFIED (2) Hypothyroid Code(s): E03.9 - HYPOTHYROIDISM, UNSPECIFIED (3) Lesion of spleen Code(s): D73.9 - DISEASE OF SPLEEN, UNSPECIFIED (4) CAD (coronary artery disease) Code(s): I25.10 - ATHSCL HEART DISEASE OF [place] CORONARY ARTERY W/O ANG PCTRS (5) CHF exacerbation Code(s): I50.9 - HEART FAILURE, UNSPECIFIED (6) Cough Code(s): R05 - COUGH (7) Dementia Code(s): F03.90 - UNSPECIFIED DEMENTIA WITHOUT BEHAVIORAL DISTURBANCE (8) Depression Code(s): F32.9 - MAJOR DEPRESSIVE DISORDER, SINGLE EPISODE, UNSPECIFIED (9) Diverticula of colon Code(s): K57.30 - DVRTCLOS OF LG INT W/O PERFORATION OR ABSCESS W/O BLEEDING (10) Failure to thrive Code(s): YJK2778 - Qualifiers: Failure to thrive age range: in adult Qualified Code(s): R62.7 - Adult failure to thrive (11) Falling Code(s): W19.XXXA - UNSPECIFIED FALL, INITIAL ENCOUNTER (12) Gait abnormality Code(s): R26.9 - UNSPECIFIED ABNORMALITIES OF GAIT AND MOBILITY (13) Hyperlipidemia Code(s): E78.5 - HYPERLIPIDEMIA, UNSPECIFIED (14) Hypertension Code(s): I10 - ESSENTIAL (PRIMARY) HYPERTENSION (15) Metabolic encephalopathy Code(s): G93.41 - METABOLIC ENCEPHALOPATHY (16) Rheumatoid arthritis Code(s): M06.9 - RHEUMATOID ARTHRITIS, UNSPECIFIED (17) S/P cholecystectomy Code(s): Z90.49 - ACQUIRED ABSENCE OF OTHER SPECIFIED PARTS OF DIGESTIVE TRACT (18) Community acquired pneumonia Code(s): J18.9 - PNEUMONIA, UNSPECIFIED ORGANISM Assessment/Plan ABX per ID: Zosyn O2 as needed BD TX No clear indication for systemic steroids NIPPV support for increased WOB Follow final cultures Aspiration precautions Fall precautions No smoking Will follow Thank you Dr Baugh
--- NOTE | 2019-05-15 14:26 | PN ---
Progress Note, Physician History of Present Illness: AWAKE BUT LETHARGIC SEATED IN BED DENIES DYSPNEA/ COUGH TEMP ELEVATION NOTED LEGIONELLA AG (-) - Current Medication List Current Medications: Active Medications Acetaminophen (Tylenol -) 650 mg PO Q4H PRN PRN Reason: PAIN Last Admin: 05/15/19 13:42 Dose: 650 mg Amlodipine Besylate (Norvasc -) 5 mg PO DAILY [facility] Last Admin: 05/15/19 10:45 Dose: 5 mg Digoxin (Lanoxin -) 0.125 mg PO DAILY [facility] Last Admin: 05/15/19 10:46 Dose: 0.125 mg Diltiazem HCl (Cardizem Cd -) 120 mg PO DAILY [facility] Last Admin: 05/15/19 10:46 Dose: 120 mg Enalapril Maleate (Vasotec -) 20 mg PO DAILY [facility] Last Admin: 05/15/19 10:45 Dose: 20 mg Furosemide (Lasix Injection -) 40 mg IVPUSH DAILY [facility] Last Admin: 05/15/19 10:00 Dose: 40 mg Piperacillin Sod/Tazobactam (Sod 3.375 gm/ Dextrose) 50 mls @ 100 mls/hr IVPB Q8H-IV MAUREEN; Protocol Last Admin: 05/15/19 10:45 Dose: 100 mls/hr Ipratropium [place] (Atrovent 0.02% Nebulizer -) 1 amp NEB RTID [facility] Last Admin: 05/15/19 07:35 Dose: 1 amp Levalbuterol HCl (Xopenex) 0.63 mg IH RTID [facility] Last Admin: 05/15/19 07:52 Dose: Not Given Levothyroxine Sodium (Synthroid -) 25 mcg PO DAILY@0700 [facility] Last Admin: 05/15/19 06:40 Dose: 25 mcg Methotrexate (Mexate -) 20 mg PO Q7D [facility] Metoprolol Succinate (Toprol Xl -) 50 mg PO DAILY [facility] Last Admin: 05/15/19 10:46 Dose: 50 mg Ondansetron HCl (Zofran -) 4 mg PO Q8H PRN PRN Reason: NAUSEA AND/OR VOMITING - Objective Vital Signs: Vital Signs Temperature 98.7 F 05/15/19 05:58 Pulse Rate 110 H 05/15/19 10:46 Respiratory Rate 20 05/15/19 09:00 Blood Pressure 147/64 05/15/19 05:58 O2 Sat by Pulse Oximetry (%) 94 L 05/15/19 09:00 Constitutional: Yes: No Distress Cardiovascular: Yes: Regular Rate and Rhythm, S1, S2 Respiratory: Yes: CTA Bilaterally Gastrointestinal: Yes: Normal Bowel Sounds, Soft. No: Tenderness Edema: Yes Labs: CBC, BMP 05/13/19 07:00 05/14/19 11:25 INR, PTT INR 1.24 (0.83-1.09) H 05/13/19 07:00 Assessment/Plan PNEUMONIA RECURRENT FEVER LACTIC ACIDOSIS TOXIC METABOLIC ENCEPHALOPATHY REPEAT BC, CBC, CXR IN LIGHT OF RECURRENT FEVER CONTINUE ZOSYN
[2019-05-16] MEDS ORDERED: PIPERACILLIN/TAZOBACTAM 3.375 GM VIAL IVPB ONE ×3 (00:51→16:57)
[2019-05-16] MEDS ORDERED: DEXTROSE 5%-WATER - 50 ML IVPB ONE ×3 (00:52→16:57)
[2019-05-16] MEDS: PIPERACILLIN/TAZOB 3.375 GM 3.375 GM in DEXTROSE 5%-WATER - 50 ML IVPB SCH ×3 (00:59→17:08)
[2019-05-16] MEDS: LEVOTHYROXINE NA 25 MCG TABLET (FP) PO SCH (06:33)
[2019-05-16 06:43] LABS: BASO % 0.3 % (0-2.0); EOS % 0.7 % (0-4.5); HEMATOCRIT 34.7 % (32.4-45.2); HEMOGLOBIN 11.5 GM/dL (10.7-15.3); LYMPH % 5.8 % (8-40); MCH 29.4 pg (25.7-33.7); MCHC 33.2 g/dl (32.0-36.0); MEAN CELL VOLUME 88.5 fl (80-96); MEAN PLT VOLUME 7.2 fl (7.5-11.1); NEUT % 86.2 % (42.8-82.8); PLATELET COUNT 450 K/MM3 (134-434); RBC 3.92 M/mm3 (3.60-5.2); RDW 20.5 % (11.6-15.6); WHITE BLOOD COUNT 22.1 K/mm3 (4.0-10.0)
[2019-05-16 07:00] LABS: ALBUMIN 2.2 g/dl (3.4-5.0); BILIRUBIN,TOTAL 0.8 mg/dL (0.2-1); BLOOD UREA NITROGEN 15.8 mg/dL (7-18); CALCIUM 8.6 mg/dL (8.5-10.1); CREATININE 0.6 mg/dL (0.55-1.3); POTASSIUM 3.3 mmol/L (3.5-5.1); TOT PROT 5.9 g/dl (6.4-8.2)
[2019-05-16] MEDS: LEVALBUTEROL HCL 0.63 MG/3 ML VIAL.NEB. IH SCH ×3 (07:25→21:25)
[2019-05-16] MEDS: IPRATROPIUM BR 0.02% 0.5 MG/2.5 ML VIAL.NEB. NEB SCH ×3 (07:25→21:25)
--- NOTE | 2019-05-16 08:50 | PN ---
Progress Note, Physician - Current Medication List Current Medications: Active Medications Acetaminophen (Tylenol -) 650 mg PO Q4H PRN PRN Reason: PAIN Last Admin: 05/15/19 13:42 Dose: 650 mg Amlodipine Besylate (Norvasc -) 5 mg PO DAILY [facility] Last Admin: 05/15/19 10:45 Dose: 5 mg Digoxin (Lanoxin -) 0.125 mg PO DAILY [facility] Last Admin: 05/15/19 10:46 Dose: 0.125 mg Diltiazem HCl (Cardizem Cd -) 120 mg PO DAILY [facility] Last Admin: 05/15/19 10:46 Dose: 120 mg Enalapril Maleate (Vasotec -) 20 mg PO DAILY [facility] Last Admin: 05/15/19 10:45 Dose: 20 mg Furosemide (Lasix Injection -) 40 mg IVPUSH DAILY [facility] Last Admin: 05/15/19 10:00 Dose: 40 mg Piperacillin Sod/Tazobactam (Sod 3.375 gm/ Dextrose) 50 mls @ 100 mls/hr IVPB Q8H-IV MAUREEN; Protocol Last Admin: 05/16/19 00:59 Dose: 100 mls/hr Ipratropium [place] (Atrovent 0.02% Nebulizer -) 1 amp NEB RTID [facility] Last Admin: 05/16/19 07:25 Dose: 1 amp Levalbuterol HCl (Xopenex) 0.63 mg IH RTID [facility] Last Admin: 05/16/19 07:25 Dose: 0.63 mg Levothyroxine Sodium (Synthroid -) 25 mcg PO DAILY@0700 [facility] Last Admin: 05/16/19 06:33 Dose: 25 mcg Metoprolol Succinate (Toprol Xl -) 50 mg PO DAILY [facility] Last Admin: 05/15/19 10:46 Dose: 50 mg Ondansetron HCl (Zofran -) 4 mg PO Q8H PRN PRN Reason: NAUSEA AND/OR VOMITING - Objective Vital Signs: Vital Signs Temperature 99.1 F 05/16/19 06:00 Pulse Rate 100 H 05/16/19 06:00 Respiratory Rate 20 05/16/19 06:00 Blood Pressure 130/78 05/16/19 06:00 O2 Sat by Pulse Oximetry (%) 96 05/15/19 21:00 Cardiovascular: Yes: S1, S2 Respiratory: Yes: On Nasal O2, Rhonchi Gastrointestinal: Yes: Normal Bowel Sounds, Soft Edema: Yes Labs: CBC, BMP 05/16/19 05:50 05/16/19 05:50 INR, PTT INR 1.24 (0.83-1.09) H 05/13/19 07:00 Assessment/Plan - Problems (1) Pneumonia Assessment/Plan: -ID + pulmonary on board -IV abx-Zosyn -Low grade Temp Microbiology 05/12/19 08:40 Blood - Peripheral Venous Blood Culture - Preliminary NO GROWTH OBTAINED AFTER 96 HOURS, INCUBATION TO CONTINUE FOR 1 DAYS. 05/12/19 08:40 Blood - Peripheral Venous Blood Culture - Preliminary NO GROWTH OBTAINED AFTER 96 HOURS, INCUBATION TO CONTINUE FOR 1 DAYS. 05/12/19 21:10 Urine For Antigen Detection Legionella Antigen - Final 05/12/19 21:10 Urine For Antigen Detection Streptococcus pneumoniae Antigen (M - Final 05/12/19 10:20 Urine - Urine - Catheterized Urine Culture - Final NO GROWTH OBTAINED -Acetaminophen for fever >100.0F -Bronchodilators -Nasal O2 to keep SpO>90% Problems reviewed: Yes Code(s): J18.9 - PNEUMONIA, UNSPECIFIED ORGANISM (2) Lesion of spleen Assessment/Plan: -Likely benign -Had similar finding on previous CT -Oncology has been consulted Problems reviewed: Yes Code(s): D73.9 - DISEASE OF SPLEEN, UNSPECIFIED (3) CAD (coronary artery disease) Assessment/Plan: -Cardiology on board -Tele monitor -Continue home meds Problems reviewed: Yes Code(s): I25.10 - ATHSCL HEART DISEASE OF [place] CORONARY ARTERY W/O ANG PCTRS (4) CHF exacerbation Assessment/Plan: -Furosemide 40 mg IV QD -Replace K+ -Daily weights -low sodium diet -Fluid restriction Problems reviewed: Yes Code(s): I50.9 - HEART FAILURE, UNSPECIFIED (5) Dementia Problems reviewed: Yes Code(s): F03.90 - UNSPECIFIED DEMENTIA WITHOUT BEHAVIORAL DISTURBANCE (6) Hypokalemia Assessment/Plan: -replace -Monitor trend Problems reviewed: Yes Code(s): E87.6 - HYPOKALEMIA (7) Metabolic encephalopathy Assessment/Plan: -2/2 to pneumonia Problems reviewed: Yes Code(s): G93.41 - METABOLIC ENCEPHALOPATHY (7) Leukocytosis Assessment/Plan: -Onco consult
[2019-05-16] MEDS ORDERED: POTASSIUM CHLORIDE TABS 20 MEQ TABLET.ER (FP) PO ONE (09:05)
[2019-05-16] MEDS ORDERED: POTASSIUM CHLORIDE TABS 20 MEQ TABLET.ER (FP) PO SCH (10:00)
[2019-05-16] MEDS: ENALAPRIL MALEATE 10 MG TABLET (FP) PO SCH (10:01)
[2019-05-16] MEDS: DIGOXIN 0.125 MG TABLET (FP) PO SCH (10:01)
[2019-05-16] MEDS: amLODIPine BESYLATE 5 MG TABLET (FP) PO SCH (10:01)
--- NOTE | 2019-05-16 11:00 | PN ---
Progress Note, Physician History of Present Illness: PULMONARY ALERT,STILL C/O SOB WITH EXERTION,-CP - Current Medication List Current Medications: Active Medications Acetaminophen (Tylenol -) 650 mg PO Q4H PRN PRN Reason: PAIN Last Admin: 05/15/19 13:42 Dose: 650 mg Amlodipine Besylate (Norvasc -) 5 mg PO DAILY [facility] Last Admin: 05/16/19 10:01 Dose: 5 mg Digoxin (Lanoxin -) 0.125 mg PO DAILY [facility] Last Admin: 05/16/19 10:01 Dose: 0.125 mg Diltiazem HCl (Cardizem Cd -) 120 mg PO DAILY [facility] Last Admin: 05/16/19 10:01 Dose: 120 mg Enalapril Maleate (Vasotec -) 20 mg PO DAILY [facility] Last Admin: 05/16/19 10:01 Dose: 20 mg Furosemide (Lasix Injection -) 40 mg IVPUSH DAILY [facility] Last Admin: 05/15/19 10:00 Dose: 40 mg Piperacillin Sod/Tazobactam (Sod 3.375 gm/ Dextrose) 50 mls @ 100 mls/hr IVPB Q8H-IV [facility]; Protocol Last Admin: 05/16/19 10:01 Dose: 100 mls/hr Ipratropium [place] (Atrovent 0.02% Nebulizer -) 1 amp NEB RTID [facility] Last Admin: 05/16/19 07:25 Dose: 1 amp Levalbuterol HCl (Xopenex) 0.63 mg IH RTID [facility] Last Admin: 05/16/19 07:25 Dose: 0.63 mg Levothyroxine Sodium (Synthroid -) 25 mcg PO DAILY@0700 [facility] Last Admin: 05/16/19 06:33 Dose: 25 mcg Metoprolol Succinate (Toprol Xl -) 50 mg PO DAILY [facility] Last Admin: 05/16/19 10:01 Dose: 50 mg Ondansetron HCl (Zofran -) 4 mg PO Q8H PRN PRN Reason: NAUSEA AND/OR VOMITING Potassium Chloride (K-Dur -) 20 meq PO DAILY [facility] - Objective Vital Signs: Vital Signs Temperature 99.1 F 05/16/19 06:00 Pulse Rate 116 H 05/16/19 10:01 Respiratory Rate 20 05/16/19 06:00 Blood Pressure 130/78 05/16/19 06:00 O2 Sat by Pulse Oximetry (%) 96 05/15/19 21:00 Constitutional: Yes: Well Nourished, Calm Eyes: Yes: WNL HENT: Yes: WNL Neck: Yes: WNL Cardiovascular: Yes: Regular Rate and Rhythm, S1, S2 Respiratory: Yes: Diminished Gastrointestinal: Yes: Normal Bowel Sounds, Soft Extremities: Yes: WNL Edema: Yes Labs: CBC, BMP 05/16/19 05:50 05/16/19 05:50 INR, PTT INR 1.24 (0.83-1.09) H 05/13/19 07:00 - ....Imaging Chest X-ray: Image Reviewed Assessment/Plan Problem List - Problems (1) Change in mental status Code(s): R41.82 - ALTERED MENTAL STATUS, UNSPECIFIED (2) Hypothyroid Code(s): E03.9 - HYPOTHYROIDISM, UNSPECIFIED (3) Lesion of spleen Code(s): D73.9 - DISEASE OF SPLEEN, UNSPECIFIED (4) CAD (coronary artery disease) Code(s): I25.10 - ATHSCL HEART DISEASE OF [place] CORONARY ARTERY W/O ANG PCTRS (5) CHF exacerbation Code(s): I50.9 - HEART FAILURE, UNSPECIFIED (6) Cough Code(s): R05 - COUGH (7) Dementia Code(s): F03.90 - UNSPECIFIED DEMENTIA WITHOUT BEHAVIORAL DISTURBANCE (8) Depression Code(s): F32.9 - MAJOR DEPRESSIVE DISORDER, SINGLE EPISODE, UNSPECIFIED (9) Diverticula of colon Code(s): K57.30 - DVRTCLOS OF LG INT W/O PERFORATION OR ABSCESS W/O BLEEDING (10) Failure to thrive Code(s): [id number] - Qualifiers: Failure to thrive age range: in adult Qualified Code(s): R62.7 - Adult failure to thrive (11) Falling Code(s): W19.XXXA - UNSPECIFIED FALL, INITIAL ENCOUNTER (12) Gait abnormality Code(s): R26.9 - UNSPECIFIED ABNORMALITIES OF GAIT AND MOBILITY (13) Hyperlipidemia Code(s): E78.5 - HYPERLIPIDEMIA, UNSPECIFIED (14) Hypertension Code(s): I10 - ESSENTIAL (PRIMARY) HYPERTENSION (15) Metabolic encephalopathy Code(s): G93.41 - METABOLIC ENCEPHALOPATHY (16) Rheumatoid arthritis Code(s): M06.9 - RHEUMATOID ARTHRITIS, UNSPECIFIED (17) S/P cholecystectomy Code(s): Z90.49 - ACQUIRED ABSENCE OF OTHER SPECIFIED PARTS OF DIGESTIVE TRACT (18) Community acquired pneumonia Code(s): J18.9 - PNEUMONIA, UNSPECIFIED ORGANISM RUL 19 AAA 20 COPD Assessment/Plan ABX per ID O2 as needed INHALED BRONCHODILATORS NIPPV support for increased WOB Aspiration precautions Fall precautions No smoking DR LOVELACE
--- NOTE | 2019-05-16 11:10 | PN ---
Progress Note (short form) - Note Progress Note: s: stable sob, edema. no chest pain, palps, dizziness Current Medications Acetaminophen (Tylenol -) 650 mg PO Q4H PRN PRN Reason: PAIN Last Admin: 05/15/19 13:42 Dose: 650 mg Amlodipine Besylate (Norvasc -) 5 mg PO DAILY [facility] Last Admin: 05/16/19 10:01 Dose: 5 mg Digoxin (Lanoxin -) 0.125 mg PO DAILY [facility] Last Admin: 05/16/19 10:01 Dose: 0.125 mg Diltiazem HCl (Cardizem Cd -) 120 mg PO DAILY [facility] Last Admin: 05/16/19 10:01 Dose: 120 mg Enalapril Maleate (Vasotec -) 20 mg PO DAILY [facility] Last Admin: 05/16/19 10:01 Dose: 20 mg Furosemide (Lasix Injection -) 40 mg IVPUSH DAILY [facility] Last Admin: 05/15/19 10:00 Dose: 40 mg Piperacillin Sod/Tazobactam (Sod 3.375 gm/ Dextrose) 50 mls @ 100 mls/hr IVPB Q8H-IV [facility]; Protocol Last Admin: 05/16/19 10:01 Dose: 100 mls/hr Ipratropium [place] (Atrovent 0.02% Nebulizer -) 1 amp NEB RTID [facility] Last Admin: 05/16/19 07:25 Dose: 1 amp Levalbuterol HCl (Xopenex) 0.63 mg IH RTID [facility] Last Admin: 05/16/19 07:25 Dose: 0.63 mg Levothyroxine Sodium (Synthroid -) 25 mcg PO DAILY@0700 [facility] Last Admin: 05/16/19 06:33 Dose: 25 mcg Metoprolol Succinate (Toprol Xl -) 50 mg PO DAILY [facility] Last Admin: 05/16/19 10:01 Dose: 50 mg Ondansetron HCl (Zofran -) 4 mg PO Q8H PRN PRN Reason: NAUSEA AND/OR VOMITING Potassium Chloride (K-Dur -) 20 meq PO DAILY [facility] Vital Signs Period Temp Pulse Resp BP Sys/[place] Pulse Ox Last 24 Hr 98.6 F-99.5 F 88-118 20-20 110-130/49-78 96 Constitutional: Yes: No Distress, Calm Eyes: No: Sclera Icterus HENT: No: Nasal Congestion Cardiovascular: Yes: Regular Rate and Rhythm, S1, S2, Other (PMI non diplaced). No: Gallop, Murmur Respiratory: Yes: CTA Bilaterally (decr intensity diffusely). No: Accessory Muscle Use, Rales, Wheezes Gastrointestinal: Yes: Normal Bowel Sounds, Soft. No: Tenderness Musculoskeletal: Yes: Other (No kyphosis) Extremities: No: Cold, Cyanosis Edema: Yes (2+ ankles) Integumentary: No: Jaundice Neurological: Yes: Alert. No: Seizure Psychiatric: No: Agitated Assessment/Plan echo 09/04: nl LV/EF, no RWMA. nl RV. nl LA. mild AI. no RVSP. 4 cm ao root, 4.1 cm ascending. echo 02/2019 tds, LV function severely reduced, severe global hypokinesis of LV, RV not well visualized, mild MR, mod AR echo 04/2019: mild LVH. grossly nl LVEF (50%). grossly nl RV. mild-mod AI. 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 orthostasis -was in svt in ER and also septic with PNA--? contributed to unstable hemodynamics at home -EF normal, low risk for V arrhythmia -monitor tele -no signs of ACS sepsis, pna, lactic acidosis: -abx per ID -sx's stable h/o tachycardia-induced CMP, edema, ?acute HFPEF -lvef sev reduced 02/2019, in setting of uncontrolled MAT on presentation of ? prolonged duratoin (arrhythmia is asymptomatic, pt had not had recent outpt followup) -EF normalized here on 05/06 echo -rate control as doing, with BB -holding JOCELYNE for now, observe BP trend - sob here likely 2/2 PNA and baseline COPD, also with signif pedal edema here, starting CCB (critical med to control HR/prevent recurrent CMP). has known h/o venous ins'y in past - cont IV lasix 40 mg daily for now Multifocal atrial tach (MAT), PSVT (short RP): -presented in SVT (? 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 -cont tele today -TSH normal. check lytes--replete K prn -would not be a candidate for 1c use (flecainide) given prior low EF (and hi risk for CAD in future). could use amio but carries pulm toxicity risks given extensive copd. could consider AVN ablation with PPM if cannot adequately control HRs with tolerable doses of AVN blockers. -again disc'd med adherence importance with pt, in presence of family (done repeatedly in office as well), to avoid invasive procedures HTN: -meds adjusted here to incr AVN blockers - BP improved with restarting enalapril -iv diuresis started. Possible CAD: -prior mibi 2012 reported low-risk area of (septal) ischemia and has been managed medically with no angina sx's -pt with extensive atherosclerotic aorta vascular disease -cont home bb, statin regimen needs clarification from office records. -ASA held in recent past when developed NSAID-related PUD (hi risk for recurrent bleeding) -intermediate trop elevation, possibly demand from sepsis/svt. does not appear to be acs. trend ce's on tele for now Thoracic and abdominal aorta aneurysms: -known ascending aorta aneurysm (4.1 cm), descending aorta aneurysm (5.2 cm), stable on recent ct 03/2019 -4.4 cm AAA, enlarged from 3.9 in 02/2018 -bp control, BB, statin as doing -would be high risk (maybe prohibitive) for open repair in any case (ascending aorta not amenable to endovascular approach) COPD, pulm HTN: -marked emphys changes on CT chest -dilated PA c/w pulm HTN -has refused home O2 repeatedly -cont suppl O2 here as doing RA: -on methotrexate
[2019-05-16 12:02] LABS: ANISOCYTOSIS 1+; MACROCYTOSIS 0; PLATELET ESTIMATE NORMAL
[2019-05-16 12:50] LABS: HYALINE CASTS 32 /lpf (0-8); PH,URINE 5.5 (5.0-8.0); URINE APPEARANCE TURBID; URINE BACTERIA 1.7 /hpf (NEGATIVE); URINE BILIRUBIN 1+ (NEGATIVE); URINE COLOR DK YELLOW; URINE GLUCOSE (UA) TRACE (NEGATIVE); URINE KETONE TRACE (NEGATIVE); URINE LEUK ESTERASE TRACE (NEGATIVE); URINE NITRITE NEGATIVE (NEGATIVE); URINE PROTEIN 1+ (NEGATIVE); URINE RBC 9 /hpf (0-4); URINE WBC 19 /hpf (0-5)
[2019-05-16 13:38] LABS: YEAST NONE SEEN (NEGATIVE)
[2019-05-16] MEDS: FUROSEMIDE 40 MG/4 ML INJECTABLE VIAL IVPUSH SCH (13:46)
--- NOTE | 2019-05-16 16:36 | PN ---
Progress Note, Physician History of Present Illness: AWAKE APPEARS MORE COMFORTABLE TODAY SUPINE IN BED DENIES DYSPNEA/ COUGH TEMPS DOWN [place]A AG (-) - Current Medication List Current Medications: Active Medications Acetaminophen (Tylenol -) 650 mg PO Q4H PRN PRN Reason: PAIN Last Admin: 05/15/19 13:42 Dose: 650 mg Amlodipine Besylate (Norvasc -) 5 mg PO DAILY [facility] Last Admin: 05/16/19 10:01 Dose: 5 mg Digoxin (Lanoxin -) 0.125 mg PO DAILY [facility] Last Admin: 05/16/19 10:01 Dose: 0.125 mg Diltiazem HCl (Cardizem Cd -) 120 mg PO DAILY [facility] Last Admin: 05/16/19 10:01 Dose: 120 mg Enalapril Maleate (Vasotec -) 20 mg PO DAILY [facility] Last Admin: 05/16/19 10:01 Dose: 20 mg Furosemide (Lasix Injection -) 40 mg IVPUSH DAILY [facility] Last Admin: 05/16/19 13:46 Dose: 40 mg Piperacillin Sod/Tazobactam (Sod 3.375 gm/ Dextrose) 50 mls @ 100 mls/hr IVPB Q8H-IV [facility]; Protocol Last Admin: 05/16/19 10:01 Dose: 100 mls/hr Ipratropium [place] (Atrovent 0.02% Nebulizer -) 1 amp NEB RTID [facility] Last Admin: 05/16/19 14:25 Dose: 1 amp Levalbuterol HCl (Xopenex) 0.63 mg IH RTID [facility] Last Admin: 05/16/19 14:25 Dose: 0.63 mg Levothyroxine Sodium (Synthroid -) 25 mcg PO DAILY@0700 [facility] Last Admin: 05/16/19 06:33 Dose: 25 mcg Metoprolol Succinate (Toprol Xl -) 50 mg PO DAILY [facility] Last Admin: 05/16/19 10:01 Dose: 50 mg Ondansetron HCl (Zofran -) 4 mg PO Q8H PRN PRN Reason: NAUSEA AND/OR VOMITING Potassium Chloride (K-Dur -) 20 meq PO DAILY [facility] - Objective Vital Signs: Vital Signs Temperature 99.4 F 05/16/19 14:15 Pulse Rate 103 H 05/16/19 14:15 Respiratory Rate 24 H 05/16/19 14:15 Blood Pressure 125/79 05/16/19 14:15 O2 Sat by Pulse Oximetry (%) 91 L 05/16/19 09:00 Constitutional: Yes: No Distress Eyes: Yes: Conjunctiva Clear Cardiovascular: Yes: Regular Rate and Rhythm, S1, S2 Respiratory: Yes: Diminished Gastrointestinal: Yes: Normal Bowel Sounds, Soft. No: Tenderness Edema: Yes Labs: CBC, BMP 05/16/19 05:50 05/16/19 05:50 INR, PTT INR 1.24 (0.83-1.09) H 05/13/19 07:00 Assessment/Plan PNEUMONIA RECURRENT FEVER LACTIC ACIDOSIS TOXIC METABOLIC ENCEPHALOPATHY REPEAT BC PENDING WBC INCREASED CONTINUE ZOSYN
[2019-05-17] MEDS ORDERED: PIPERACILLIN/TAZOBACTAM 3.375 GM VIAL IVPB ONE ×2 (00:41→09:42)
[2019-05-17] MEDS ORDERED: DEXTROSE 5%-WATER - 50 ML IVPB ONE ×2 (00:41→09:42)
[2019-05-17] MEDS: PIPERACILLIN/TAZOB 3.375 GM 3.375 GM in DEXTROSE 5%-WATER - 50 ML IVPB SCH ×2 (00:59→11:32)
[2019-05-17] MEDS: LEVOTHYROXINE NA 25 MCG TABLET (FP) PO SCH (06:11)
[2019-05-17 06:49] LABS: BASO % 0.7 % (0-2.0); HEMATOCRIT 30.9 % (32.4-45.2); HEMOGLOBIN 10.2 GM/dL (10.7-15.3); LYMPH % 7.2 % (8-40); MCH 29.1 pg (25.7-33.7); MEAN CELL VOLUME 88.2 fl (80-96); MEAN PLT VOLUME 7.1 fl (7.5-11.1); MONO % 9.3 % (3.8-10.2); NEUT % 81.8 % (42.8-82.8); PLATELET COUNT 413 K/MM3 (134-434); RDW 20.9 % (11.6-15.6); WHITE BLOOD COUNT 19.1 K/mm3 (4.0-10.0)
[2019-05-17 07:21] LABS: ALBUMIN 1.8 g/dl (3.4-5.0); BILIRUBIN,TOTAL 0.7 mg/dL (0.2-1); BLOOD UREA NITROGEN 20.6 mg/dL (7-18); CALCIUM 8.5 mg/dL (8.5-10.1); CREATININE 0.5 mg/dL (0.55-1.3); POTASSIUM 3.3 mmol/L (3.5-5.1); TOT PROT 5.2 g/dl (6.4-8.2)
[2019-05-17] MEDS: LEVALBUTEROL HCL 0.63 MG/3 ML VIAL.NEB. IH SCH ×3 (08:00→20:28)
[2019-05-17] MEDS: IPRATROPIUM BR 0.02% 0.5 MG/2.5 ML VIAL.NEB. NEB SCH ×3 (08:00→20:28)
[2019-05-17 10:03] LABS: ANISOCYTOSIS 2+; MACROCYTOSIS 1+; PLATELET ESTIMATE NORMAL
--- NOTE | 2019-05-17 10:07 | PN ---
Progress Note, Physician History of Present Illness: pulmonary no change,c/o sob with min exertion,-cp - Current Medication List Current Medications: Active Medications Acetaminophen (Tylenol -) 650 mg PO Q4H PRN PRN Reason: PAIN Last Admin: 05/15/19 13:42 Dose: 650 mg Amlodipine Besylate (Norvasc -) 5 mg PO DAILY [facility] Last Admin: 05/16/19 10:01 Dose: 5 mg Digoxin (Lanoxin -) 0.125 mg PO DAILY [facility] Last Admin: 05/16/19 10:01 Dose: 0.125 mg Diltiazem HCl (Cardizem Cd -) 120 mg PO DAILY [facility] Last Admin: 05/16/19 10:01 Dose: 120 mg Enalapril Maleate (Vasotec -) 20 mg PO DAILY [facility] Last Admin: 05/16/19 10:01 Dose: 20 mg Furosemide (Lasix Injection -) 40 mg IVPUSH DAILY [facility] Last Admin: 05/16/19 13:46 Dose: 40 mg Piperacillin Sod/Tazobactam (Sod 3.375 gm/ Dextrose) 50 mls @ 100 mls/hr IVPB Q8H-IV [facility]; Protocol Last Admin: 05/17/19 00:59 Dose: 100 mls/hr Ipratropium [place] (Atrovent 0.02% Nebulizer -) 1 amp NEB RTID [facility] Last Admin: 05/17/19 08:00 Dose: Not Given Levalbuterol HCl (Xopenex) 0.63 mg IH RTID [facility] Last Admin: 05/17/19 08:00 Dose: Not Given Levothyroxine Sodium (Synthroid -) 25 mcg PO DAILY@0700 [facility] Last Admin: 05/17/19 06:11 Dose: 25 mcg Metoprolol Succinate (Toprol Xl -) 50 mg PO DAILY [facility] Last Admin: 05/16/19 10:01 Dose: 50 mg Ondansetron HCl (Zofran -) 4 mg PO Q8H PRN PRN Reason: NAUSEA AND/OR VOMITING Potassium Chloride (K-Dur -) 20 meq PO DAILY [facility] - Objective Vital Signs: Vital Signs Temperature 99.2 F 05/17/19 06:00 Pulse Rate 94 H 05/17/19 06:00 Respiratory Rate 20 05/17/19 06:00 Blood Pressure 110/49 L 05/17/19 06:00 O2 Sat by Pulse Oximetry (%) 93 L 05/16/19 21:00 Constitutional: Yes: Well Nourished, Calm Eyes: Yes: WNL HENT: Yes: WNL Neck: Yes: WNL Cardiovascular: Yes: Regular Rate and Rhythm, S1, S2 Respiratory: Yes: Diminished Gastrointestinal: Yes: Normal Bowel Sounds, Soft Extremities: Yes: WNL Edema: Yes Labs: CBC, BMP 05/17/19 05:39 05/17/19 05:39 INR, PTT INR 1.24 (0.83-1.09) H 05/13/19 07:00 Assessment/Plan Problem List - Problems (1) Change in mental status Code(s): R41.82 - ALTERED MENTAL STATUS, UNSPECIFIED (2) Hypothyroid Code(s): E03.9 - HYPOTHYROIDISM, UNSPECIFIED (3) Lesion of spleen Code(s): D73.9 - DISEASE OF SPLEEN, UNSPECIFIED (4) CAD (coronary artery disease) Code(s): I25.10 - ATHSCL HEART DISEASE OF [place] CORONARY ARTERY W/O ANG PCTRS (5) CHF exacerbation Code(s): I50.9 - HEART FAILURE, UNSPECIFIED (6) Cough Code(s): R05 - COUGH (7) Dementia Code(s): F03.90 - UNSPECIFIED DEMENTIA WITHOUT BEHAVIORAL DISTURBANCE (8) Depression Code(s): F32.9 - MAJOR DEPRESSIVE DISORDER, SINGLE EPISODE, UNSPECIFIED (9) Diverticula of colon Code(s): K57.30 - DVRTCLOS OF LG INT W/O PERFORATION OR ABSCESS W/O BLEEDING (10) Failure to thrive Code(s): SRZ8482 - Qualifiers: Failure to thrive age range: in adult Qualified Code(s): R62.7 - Adult failure to thrive (11) Falling Code(s): W19.XXXA - UNSPECIFIED FALL, INITIAL ENCOUNTER (12) Gait abnormality Code(s): R26.9 - UNSPECIFIED ABNORMALITIES OF GAIT AND MOBILITY (13) Hyperlipidemia Code(s): E78.5 - HYPERLIPIDEMIA, UNSPECIFIED (14) Hypertension Code(s): I10 - ESSENTIAL (PRIMARY) HYPERTENSION (15) Metabolic encephalopathy Code(s): G93.41 - METABOLIC ENCEPHALOPATHY (16) Rheumatoid arthritis Code(s): M06.9 - RHEUMATOID ARTHRITIS, UNSPECIFIED (17) S/P cholecystectomy Code(s): Z90.49 - ACQUIRED ABSENCE OF OTHER SPECIFIED PARTS OF DIGESTIVE TRACT (18) Community acquired pneumonia Code(s): J18.9 - PNEUMONIA, UNSPECIFIED ORGANISM RUL 19 AAA 20 COPD Assessment/Plan ABX per ID O2 as needed INHALED BRONCHODILATORS NIPPV support for increased WOB Aspiration precautions Fall precautions No smoking f/u chest x-rays DR LOVELACE
--- NOTE | 2019-05-17 10:50 | PN ---
Progress Note (short form) - Note Progress Note: s: sob slightly better, stable edema. no chest pain, palps, dizziness Current Medications Acetaminophen (Tylenol -) 650 mg PO Q4H PRN PRN Reason: PAIN Last Admin: 05/15/19 13:42 Dose: 650 mg Amlodipine Besylate (Norvasc -) 5 mg PO DAILY [facility] Last Admin: 05/16/19 10:01 Dose: 5 mg Digoxin (Lanoxin -) 0.125 mg PO DAILY [facility] Last Admin: 05/16/19 10:01 Dose: 0.125 mg Diltiazem HCl (Cardizem Cd -) 120 mg PO DAILY [facility] Last Admin: 05/16/19 10:01 Dose: 120 mg Enalapril Maleate (Vasotec -) 20 mg PO DAILY [facility] Last Admin: 05/16/19 10:01 Dose: 20 mg Furosemide (Lasix Injection -) 40 mg IVPUSH BID@0600,1400 [facility] Piperacillin Sod/Tazobactam (Sod 3.375 gm/ Dextrose) 50 mls @ 100 mls/hr IVPB Q8H-IV [facility]; Protocol Last Admin: 05/17/19 00:59 Dose: 100 mls/hr Ipratropium [place] (Atrovent 0.02% Nebulizer -) 1 amp NEB RTID [facility] Last Admin: 05/17/19 08:00 Dose: Not Given Levalbuterol HCl (Xopenex) 0.63 mg IH RTID [facility] Last Admin: 05/17/19 08:00 Dose: Not Given Levothyroxine Sodium (Synthroid -) 25 mcg PO DAILY@0700 [facility] Last Admin: 05/17/19 06:11 Dose: 25 mcg Metoprolol Succinate (Toprol Xl -) 50 mg PO DAILY [facility] Last Admin: 05/16/19 10:01 Dose: 50 mg Ondansetron HCl (Zofran -) 4 mg PO Q8H PRN PRN Reason: NAUSEA AND/OR VOMITING Potassium Chloride (K-Dur -) 20 meq PO DAILY [facility] Vital Signs Period Temp Pulse Resp BP Sys/[place] Pulse Ox Last 24 Hr 98.9 F-99.4 F 89-103 20-24 108-133/41-79 93 Constitutional: Yes: No Distress, Calm Eyes: No: Sclera Icterus HENT: No: Nasal Congestion Cardiovascular: Yes: Regular Rate and Rhythm, S1, S2, Other (PMI non diplaced). No: Gallop, Murmur Respiratory: Yes: CTA Bilaterally (decr intensity diffusely). No: Accessory Muscle Use, Rales, Wheezes Gastrointestinal: Yes: Normal Bowel Sounds, Soft. No: Tenderness Musculoskeletal: Yes: Other (No kyphosis) Extremities: No: Cold, Cyanosis Edema: Yes (2+ ankles) Integumentary: No: Jaundice Neurological: Yes: Alert. No: Seizure Psychiatric: No: Agitated Assessment/Plan echo 09/04: nl LV/EF, no RWMA. nl RV. nl LA. mild AI. no RVSP. 4 cm ao root, 4.1 cm ascending. echo 02/2019 tds, LV function severely reduced, severe global hypokinesis of LV, RV not well visualized, mild MR, mod AR echo 04/2019: mild LVH. grossly nl LVEF (50%). grossly nl RV. mild-mod AI. 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 orthostasis -was in svt in ER and also septic with PNA--? contributed to unstable hemodynamics at home -EF normal, low risk for V arrhythmia -monitor tele -no signs of ACS sepsis, pna, lactic acidosis: -abx per ID -sx's stable h/o tachycardia-induced CMP, edema, ?acute HFPEF -lvef sev reduced 02/2019, in setting of uncontrolled MAT on presentation of ? prolonged duratoin (arrhythmia is asymptomatic, pt had not had recent outpt followup) -EF normalized here on 05/06 echo -rate control as doing, with BB -holding JOCELYNE for now, observe BP trend - sob here likely 2/2 PNA and baseline COPD, also with signif pedal edema here, starting CCB (critical med to control HR/prevent recurrent CMP). has known h/o venous ins'y in past - weight stable, Cr stable, inc lasix to 40 mg IV BID Multifocal atrial tach (MAT), PSVT (short RP): -presented in SVT (? AVNRT), resolved in ER--ongoing bursts on tele -predominant rhythm is MAT which is mildly rapid -home med adherence suboptimal (dementia, frequently refuses meds from and [employer]) -tele with frequent episodes PSVT to HR approx 200--aborted with coughing vigorously, then returned--responded acutely to diltiazem 10 IVP--cardizem started -presently no more PSVT on tele--cont diltiazem 120 qd, metopr 50 qd, digoxin ( level good). -cont tele today -TSH normal. check lytes--replete K prn -would not be a candidate for 1c use (flecainide) given prior low EF (and hi risk for CAD in future). could use amio but carries pulm toxicity risks given extensive copd. could consider AVN ablation with PPM if cannot adequately control HRs with tolerable doses of AVN blockers. -again disc'd med adherence importance with pt, in presence of family (done repeatedly in office as well), to avoid invasive procedures HTN: -meds adjusted here to incr AVN blockers - BP improved with restarting enalapril -iv diuresis started. Possible CAD: -prior mibi 2012 reported low-risk area of (septal) ischemia and has been managed medically with no angina sx's -pt with extensive atherosclerotic aorta vascular disease -cont home bb, statin regimen needs clarification from office records. -ASA held in recent past when developed NSAID-related PUD (hi risk for recurrent bleeding) -intermediate trop elevation, possibly demand from sepsis/svt. does not appear to be acs. trend ce's on tele for now Thoracic and abdominal aorta aneurysms: -known ascending aorta aneurysm (4.1 cm), descending aorta aneurysm (5.2 cm), stable on recent ct 03/2019 -4.4 cm AAA, enlarged from 3.9 in 02/2018 -bp control, BB, statin as doing -would be high risk (maybe prohibitive) for open repair in any case (ascending aorta not amenable to endovascular approach) COPD, pulm HTN: -marked emphys changes on CT chest -dilated PA c/w pulm HTN -has refused home O2 repeatedly -cont suppl O2 here as doing RA: -on methotrexate
--- NOTE | 2019-05-17 11:21 | PN ---
Progress Note, Physician Chief Complaint: Pneumonia CHF Hypokalemia Metabolic encephalopathy History of Present Illness: NAD, feels better, breathing improved SOB on exertion, + Nasal O2 AxO x2 +dependent edema - Current Medication List Current Medications: Active Medications Acetaminophen (Tylenol -) 650 mg PO Q4H PRN PRN Reason: PAIN Last Admin: 05/15/19 13:42 Dose: 650 mg Amlodipine Besylate (Norvasc -) 5 mg PO DAILY [facility] Last Admin: 05/16/19 10:01 Dose: 5 mg Digoxin (Lanoxin -) 0.125 mg PO DAILY [facility] Last Admin: 05/16/19 10:01 Dose: 0.125 mg Diltiazem HCl (Cardizem Cd -) 120 mg PO DAILY [facility] Last Admin: 05/16/19 10:01 Dose: 120 mg Enalapril Maleate (Vasotec -) 20 mg PO DAILY [facility] Last Admin: 05/16/19 10:01 Dose: 20 mg Furosemide (Lasix Injection -) 40 mg IVPUSH BID@0600,1400 [facility] Piperacillin Sod/Tazobactam (Sod 3.375 gm/ Dextrose) 50 mls @ 100 mls/hr IVPB Q8H-IV [facility]; Protocol Last Admin: 05/17/19 00:59 Dose: 100 mls/hr Ipratropium [place] (Atrovent 0.02% Nebulizer -) 1 amp NEB RTID [facility] Last Admin: 05/17/19 08:00 Dose: Not Given Levalbuterol HCl (Xopenex) 0.63 mg IH RTID [facility] Last Admin: 05/17/19 08:00 Dose: Not Given Levothyroxine Sodium (Synthroid -) 25 mcg PO DAILY@0700 [facility] Last Admin: 05/17/19 06:11 Dose: 25 mcg Metoprolol Succinate (Toprol Xl -) 50 mg PO DAILY [facility] Last Admin: 05/16/19 10:01 Dose: 50 mg Ondansetron HCl (Zofran -) 4 mg PO Q8H PRN PRN Reason: NAUSEA AND/OR VOMITING Potassium Chloride (K-Dur -) 20 meq PO DAILY [facility] Potassium Chloride (Potassium Chloride Oral Liquid) 40 meq PO ONCE ONE Stop: 05/17/19 11:17 - Objective Vital Signs: Vital Signs Temperature 99.2 F 05/17/19 06:00 Pulse Rate 94 H 05/17/19 06:00 Respiratory Rate 20 05/17/19 06:00 Blood Pressure 110/49 L 05/17/19 06:00 O2 Sat by Pulse Oximetry (%) 93 L 05/16/19 21:00 Constitutional: Yes: Well Nourished, No Distress, Calm Cardiovascular: Yes: Regular Rate and Rhythm Respiratory: Yes: Regular, On Nasal O2, SOB on Exertion Gastrointestinal: Yes: Normal Bowel Sounds, Soft Genitourinary: Yes: Incontinence Musculoskeletal: Yes: Muscle Weakness Extremities: Yes: WNL Edema: Yes Edema: LLE: 2+, RLE: 2+ Peripheral Pulses WNL: Yes Neurological: Yes: Alert, Pre-Existing Deficit Psychiatric: Yes: Alert Labs: CBC, BMP 05/17/19 05:39 05/17/19 05:39 INR, PTT INR 1.24 (0.83-1.09) H 05/13/19 07:00 Problem List - Problems (1) Pneumonia Assessment/Plan: -ID + pulmonary on board -IV abx -Acetaminophen for fever >100.0F -Bronchodilators -Nasal O2 to keep SpO>90% Problems reviewed: Yes Code(s): J18.9 - PNEUMONIA, UNSPECIFIED ORGANISM (2) Lesion of spleen Assessment/Plan: -Likely benign -Had similar finding on previous CT -Oncology has been consulted Problems reviewed: Yes Code(s): D73.9 - DISEASE OF SPLEEN, UNSPECIFIED (3) CAD (coronary artery disease) Assessment/Plan: -Cardiology on board -Tele monitor -Continue home meds Problems reviewed: Yes Code(s): I25.10 - ATHSCL HEART DISEASE OF [place] CORONARY ARTERY W/O ANG PCTRS (4) CHF exacerbation Assessment/Plan: -Furosemide increased to 40 mg IV BID -Daily weights -low sodium diet -Fluid restriction Problems reviewed: Yes Code(s): I50.9 - HEART FAILURE, UNSPECIFIED (5) Dementia Problems reviewed: Yes Code(s): F03.90 - UNSPECIFIED DEMENTIA WITHOUT BEHAVIORAL DISTURBANCE (6) Hypokalemia Assessment/Plan: -KCL 40 meq once in addition to 20 meq given already today -Change KCl to 40 meq po daily -CMP in AM Code(s): E87.6 - HYPOKALEMIA (7) Metabolic encephalopathy Assessment/Plan: -2/2 to pneumonia Problems reviewed: Yes Code(s): G93.41 - METABOLIC ENCEPHALOPATHY Assessment/Plan see problem list
[2019-05-17] MEDS ORDERED: POTASSIUM CHLORIDE ORAL LIQUID 20 MEQ/15 ML PO ONE (11:30)
[2019-05-17] MEDS: ENALAPRIL MALEATE 10 MG TABLET (FP) PO SCH ×3 (11:30→14:30)
[2019-05-17] MEDS: amLODIPine BESYLATE 5 MG TABLET (FP) PO SCH ×3 (11:30→14:30)
[2019-05-17] MEDS: DIGOXIN 0.125 MG TABLET (FP) PO SCH ×3 (11:31→14:30)
[2019-05-17] MEDS: FUROSEMIDE 40 MG/4 ML INJECTABLE VIAL IVPUSH SCH ×2 (11:33→16:08)
--- NOTE | 2019-05-17 15:05 | EKG ---
Test Reason : Blood Pressure : / mmHG Vent. Rate : 103 BPM Atrial Rate : 090 BPM P-R Int : 000 ms QRS Dur : 076 ms QT Int : 334 ms P-R-T Axes : 000 005 057 degrees QTc Int : 437 ms POOR DATA QUALITY, INTERPRETATION MAY BE ADVERSELY AFFECTED ATRIAL FIBRILLATION WITH RAPID VENTRICULAR RESPONSE INFERIOR INFARCT , AGE UNDETERMINED ABNORMAL ECG WHEN COMPARED WITH ECG OF 12-MAY-2019 17:14, SIGNIFICANT CHANGES HAVE OCCURRED Confirmed by LILIANE LOJA, CANDIDO ([id number]) on 05/17/2019 3:04:48 PM Referred By: Confirmed By:CANDIDO MOMIN MD
--- NOTE | 2019-05-17 21:31 | PN ---
Progress Note, Physician History of Present Illness: AWAKE APPEARS MORE COMFORTABLE SUPINE IN BED DENIES DYSPNEA/ COUGH LOW GRADE TEMP NOTED LEGIONELLA AG (-) - Current Medication List Current Medications: Active Medications Acetaminophen (Tylenol -) 650 mg PO Q4H PRN PRN Reason: PAIN Last Admin: 05/15/19 13:42 Dose: 650 mg Amlodipine Besylate (Norvasc -) 5 mg PO DAILY [facility] Last Admin: 05/17/19 14:30 Dose: 5 mg Digoxin (Lanoxin -) 0.125 mg PO DAILY [facility] Last Admin: 05/17/19 14:30 Dose: 0.125 mg Diltiazem HCl (Cardizem Cd -) 120 mg PO DAILY [facility] Last Admin: 05/17/19 14:30 Dose: 120 mg Enalapril Maleate (Vasotec -) 20 mg PO DAILY [facility] Last Admin: 05/17/19 14:30 Dose: 20 mg Furosemide (Lasix Injection -) 40 mg IVPUSH BID@0600,1400 [facility] Last Admin: 05/17/19 16:08 Dose: 40 mg Piperacillin Sod/Tazobactam (Sod 3.375 gm/ Dextrose) 50 mls @ 100 mls/hr IVPB Q8H-IV [facility]; Protocol Last Admin: 05/17/19 11:32 Dose: 100 mls/hr Ipratropium [place] (Atrovent 0.02% Nebulizer -) 1 amp NEB RTID [facility] Last Admin: 05/17/19 20:28 Dose: Not Given Levalbuterol HCl (Xopenex) 0.63 mg IH RTID [facility] Last Admin: 05/17/19 20:28 Dose: Not Given Levothyroxine Sodium (Synthroid -) 25 mcg PO DAILY@0700 [facility] Last Admin: 05/17/19 06:11 Dose: 25 mcg Metoprolol Succinate (Toprol Xl -) 50 mg PO DAILY [facility] Last Admin: 05/17/19 14:30 Dose: 50 mg Ondansetron HCl (Zofran -) 4 mg PO Q8H PRN PRN Reason: NAUSEA AND/OR VOMITING Potassium Chloride (K-Dur -) 40 meq PO DAILY [facility] - Objective Vital Signs: Vital Signs Temperature 99.4 F 05/17/19 14:25 Pulse Rate 103 H 05/17/19 14:30 Respiratory Rate 24 H 05/17/19 14:25 Blood Pressure 124/68 05/17/19 14:25 O2 Sat by Pulse Oximetry (%) 93 L 05/17/19 10:00 Constitutional: Yes: No Distress Cardiovascular: Yes: Regular Rate and Rhythm, S1, S2 Respiratory: Yes: Rhonchi Gastrointestinal: Yes: Normal Bowel Sounds, Soft Edema: Yes Edema: LLE: 2+, RLE: 2+ Labs: CBC, BMP 05/17/19 05:39 05/17/19 05:39 INR, PTT INR 1.24 (0.83-1.09) H 05/13/19 07:00 Assessment/Plan PNEUMONIA RECURRENT FEVER LACTIC ACIDOSIS TOXIC METABOLIC ENCEPHALOPATHY REPEAT NO GROWTH WBC REMAINS ELEVATED CONTINUE ZOSYN
[2019-05-18] MEDS ORDERED: DEXTROSE 5%-WATER - 50 ML IVPB ONE ×3 (01:26→17:05)
[2019-05-18] MEDS ORDERED: PIPERACILLIN/TAZOBACTAM 3.375 GM VIAL IVPB ONE ×3 (01:26→17:05)
[2019-05-18] MEDS: PIPERACILLIN/TAZOB 3.375 GM 3.375 GM in DEXTROSE 5%-WATER - 50 ML IVPB SCH ×4 (02:31→18:13)
[2019-05-18] MEDS: LEVOTHYROXINE NA 25 MCG TABLET (FP) PO SCH (06:22)
[2019-05-18] MEDS: FUROSEMIDE 40 MG/4 ML INJECTABLE VIAL IVPUSH SCH ×2 (06:24→14:57)
[2019-05-18] MEDS: LEVALBUTEROL HCL 0.63 MG/3 ML VIAL.NEB. IH SCH ×3 (07:30→21:14)
[2019-05-18] MEDS: IPRATROPIUM BR 0.02% 0.5 MG/2.5 ML VIAL.NEB. NEB SCH ×3 (07:30→20:14)
[2019-05-18 08:18] LABS: BILIRUBIN,TOTAL 0.9 mg/dL (0.2-1); BLOOD UREA NITROGEN 21.9 mg/dL (7-18); CALCIUM 8.6 mg/dL (8.5-10.1); CREATININE 0.5 mg/dL (0.55-1.3); POTASSIUM 3.4 mmol/L (3.5-5.1); TOT PROT 5.8 g/dl (6.4-8.2)
[2019-05-18 10:15] LABS: BASO % 0.9 % (0-2.0); HEMATOCRIT 34.5 % (32.4-45.2); HEMOGLOBIN 11.1 GM/dL (10.7-15.3); LYMPH % 8.1 % (8-40); MCH 28.5 pg (25.7-33.7); MEAN CELL VOLUME 89.1 fl (80-96); MONO % 7.6 % (3.8-10.2); NEUT % 82.4 % (42.8-82.8); PLATELET COUNT 470 K/MM3 (134-434); RBC 3.88 M/mm3 (3.60-5.2); RDW 21.3 % (11.6-15.6); WHITE BLOOD COUNT 23.5 K/mm3 (4.0-10.0)
[2019-05-18] MEDS: ENALAPRIL MALEATE 10 MG TABLET (FP) PO SCH (10:22)
[2019-05-18] MEDS: POTASSIUM CHLORIDE TABS 10 MEQ TABLET.ER (FP) PO SCH ×2 (10:22→10:36)
[2019-05-18] MEDS: amLODIPine BESYLATE 5 MG TABLET (FP) PO SCH (10:22)
[2019-05-18] MEDS: DIGOXIN 0.125 MG TABLET (FP) PO SCH (10:22)
--- NOTE | 2019-05-18 11:42 | PN ---
Progress Note (short form) - Note Progress Note: s: no chest pain, palps, dizziness sob. le edema improving. Current Medications Generic Name Dose Route Start Last Admin Trade Name Freq PRN Reason Stop Dose Admin Acetaminophen 650 mg 05/14/19 13:43 05/15/19 13:42 Tylenol - PO 650 mg Q4H PRN Administration PAIN Amlodipine Besylate 5 mg 05/13/19 10:00 05/18/19 10:22 Norvasc - PO 5 mg DAILY [facility] Administration Digoxin 0.125 mg 05/13/19 10:00 05/18/19 10:22 Lanoxin - PO 0.125 mg DAILY [facility] Administration Diltiazem HCl 120 mg 05/14/19 10:45 05/18/19 10:22 Cardizem Cd - PO 120 mg DAILY [facility] Administration Enalapril Maleate 20 mg 05/13/19 10:00 05/18/19 10:22 Vasotec - PO 20 mg DAILY [facility] Administration Furosemide 40 mg 05/17/19 14:00 05/18/19 06:24 Lasix Injection - IVPUSH 40 mg BID@0600,1400 [facility] Administration Piperacillin Sod/Tazobactam 50 mls @ 100 mls/hr 05/13/19 02:00 05/18/19 10:23 Sod 3.375 gm/ Dextrose IVPB Not Given Q8H-IV [facility] Protocol Ipratropium [place] 1 amp 05/14/19 14:00 05/18/19 07:30 Atrovent 0.02% Nebulizer - NEB Not Given RTID [facility] Levalbuterol HCl 0.63 mg 05/14/19 14:00 05/18/19 07:30 Xopenex IH Not Given RTID [facility] Levothyroxine Sodium 25 mcg 05/13/19 07:00 05/18/19 06:22 Synthroid - PO 25 mcg DAILY@0700 [facility] Administration Metoprolol Succinate 50 mg 05/13/19 10:00 05/18/19 10:22 Toprol Xl - PO 50 mg DAILY [facility] Administration Ondansetron HCl 4 mg 05/13/19 08:24 Zofran - PO Q8H PRN NAUSEA AND/OR VOMITING Potassium Chloride 40 meq 05/18/19 10:00 05/18/19 10:36 K-Dur - PO Not Given DAILY [facility] Vital Signs Period Temp Pulse Resp BP Sys/[place] Pulse Ox Last 24 Hr 97.5 F-99.4 F 85-107 20-24 107-128/51-68 Constitutional: Yes: No Distress, Calm Eyes: No: Sclera Icterus HENT: No: Nasal Congestion Cardiovascular: Yes: Regular Rate and Rhythm, S1, S2, Other (PMI non diplaced). No: Gallop, Murmur Respiratory: Yes: CTA Bilaterally (decr intensity diffusely). No: Accessory Muscle Use, Rales, Wheezes Gastrointestinal: Yes: Normal Bowel Sounds, Soft. No: Tenderness Extremities: No: Cold, Cyanosis Edema: Yes (1-2+ ankles) Integumentary: No: Jaundice Neurological: Yes: Alert. No: Seizure Psychiatric: No: Agitated CBC, BMP 05/18/19 06:50 05/18/19 06:50 echo 09/04: nl LV/EF, no RWMA. nl RV. nl LA. mild AI. no RVSP. 4 cm ao root, 4.1 cm ascending. echo 02/2019 tds, LV function severely reduced, severe global hypokinesis of LV, RV not well visualized, mild MR, mod AR echo 04/2019: mild LVH. grossly nl LVEF (50%). grossly nl RV. mild-mod AI. 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 orthostasis -was in svt in ER and also septic with PNA--? contributed to unstable hemodynamics at home -EF normal, low risk for V arrhythmia -monitor tele -no signs of ACS sepsis, pna, lactic acidosis: -abx per ID -sx's stable h/o tachycardia-induced CMP, edema, ?acute HFPEF -lvef sev reduced 02/2019, in setting of uncontrolled MAT on presentation of ? prolonged duratoin (arrhythmia is asymptomatic, pt had not had recent outpt followup) -EF normalized here on 05/06 echo -rate control as doing, with BB -holding JOCELYNE for now, observe BP trend - sob here likely 2/2 PNA and baseline COPD, also with signif pedal edema here, starting CCB (critical med to control HR/prevent recurrent CMP). has known h/o venous ins'y in past - weight stable, Cr stable, cont lasix 40 mg IV BID Multifocal atrial tach (MAT), PSVT (short RP): -presented in SVT (? AVNRT), resolved in ER--ongoing bursts on tele -predominant rhythm is MAT which is mildly rapid -home med adherence suboptimal (dementia, frequently refuses meds from and [employer]) -tele with frequent episodes PSVT to HR approx 200--aborted with coughing vigorously, then returned--responded acutely to diltiazem 10 IVP--cardizem started -presently no more PSVT on tele--cont diltiazem 120 qd, metopr 50 qd, digoxin ( level good). -cont tele today -TSH normal. check lytes--replete K prn -would not be a candidate for 1c use (flecainide) given prior low EF (and hi risk for CAD in future). could use amio but carries pulm toxicity risks given extensive copd. could consider AVN ablation with PPM if cannot adequately control HRs with tolerable doses of AVN blockers. -again disc'd med adherence importance with pt, in presence of family (done repeatedly in office as well), to avoid invasive procedures HTN: -meds adjusted here to incr AVN blockers - BP improved with restarting enalapril -iv diuresis started. Possible CAD: -prior mibi 2012 reported low-risk area of (septal) ischemia and has been managed medically with no angina sx's -pt with extensive atherosclerotic aorta vascular disease -cont home bb, statin regimen needs clarification from office records. -ASA held in recent past when developed NSAID-related PUD (hi risk for recurrent bleeding) -intermediate trop elevation, possibly demand from sepsis/svt. does not appear to be acs. trend ce's on tele for now Thoracic and abdominal aorta aneurysms: -known ascending aorta aneurysm (4.1 cm), descending aorta aneurysm (5.2 cm), stable on recent ct 03/2019 -4.4 cm AAA, enlarged from 3.9 in 02/2018 -bp control, BB, statin as doing -would be high risk (maybe prohibitive) for open repair in any case (ascending aorta not amenable to endovascular approach) COPD, pulm HTN: -marked emphys changes on CT chest -dilated PA c/w pulm HTN -has refused home O2 repeatedly -cont suppl O2 here as doing
[2019-05-18 12:03] LABS: ANISOCYTOSIS 1+; MACROCYTOSIS 0; PLATELET ESTIMATE INCREASED
--- NOTE | 2019-05-18 12:50 | PN ---
Progress Note (short form) - Note Progress Note: SOB is improving. No CP. Edema improving. Intake & Output 05/15/19 05/16/19 05/17/19 05/18/19 23:59 23:59 23:59 23:59 Intake Total 760 980 260 Output Total 800 1050 700 500 Balance -40 -70 -440 -500 Weight 164 lb 3.2 oz 164 lb 4 oz 164 lb 8 oz 163 lb Last Vital Signs Temp Pulse Resp BP Pulse Ox 98.2 F 102 H 20 128/56 L 93 L 05/18/19 02:00 05/18/19 10:22 05/18/19 06:00 05/18/19 06:00 05/17/19 10:00 Active Medications Acetaminophen (Tylenol -) 650 mg PO Q4H PRN PRN Reason: PAIN Last Admin: 05/15/19 13:42 Dose: 650 mg Amlodipine Besylate (Norvasc -) 5 mg PO DAILY [facility] Last Admin: 05/18/19 10:22 Dose: 5 mg Digoxin (Lanoxin -) 0.125 mg PO DAILY [facility] Last Admin: 05/18/19 10:22 Dose: 0.125 mg Diltiazem HCl (Cardizem Cd -) 120 mg PO DAILY [facility] Last Admin: 05/18/19 10:22 Dose: 120 mg Enalapril Maleate (Vasotec -) 20 mg PO DAILY [facility] Last Admin: 05/18/19 10:22 Dose: 20 mg Furosemide (Lasix Injection -) 40 mg IVPUSH BID@0600,1400 [facility] Last Admin: 05/18/19 06:24 Dose: 40 mg Piperacillin Sod/Tazobactam (Sod 3.375 gm/ Dextrose) 50 mls @ 100 mls/hr IVPB Q8H-IV [facility]; Protocol Last Admin: 05/18/19 10:23 Dose: Not Given Ipratropium [place] (Atrovent 0.02% Nebulizer -) 1 amp NEB RTID [facility] Last Admin: 05/18/19 07:30 Dose: Not Given Levalbuterol HCl (Xopenex) 0.63 mg IH RTID [facility] Last Admin: 05/18/19 07:30 Dose: Not Given Levothyroxine Sodium (Synthroid -) 25 mcg PO DAILY@0700 [facility] Last Admin: 05/18/19 06:22 Dose: 25 mcg Metoprolol Succinate (Toprol Xl -) 50 mg PO DAILY [facility] Last Admin: 05/18/19 10:22 Dose: 50 mg Ondansetron HCl (Zofran -) 4 mg PO Q8H PRN PRN Reason: NAUSEA AND/OR VOMITING Potassium Chloride (K-Dur -) 40 meq PO DAILY [facility] Last Admin: 05/18/19 10:36 Dose: Not Given Constitutional: Yes: NAD Eyes: Yes: WNL HENT: Yes: WNL Neck: Yes: WNL Cardiovascular: Yes: Regular Rate and Rhythm, S1, S2 Respiratory: Yes: Diminished at the bases Gastrointestinal: Yes: Normal Bowel Sounds, Soft Extremities: Yes: WNL Edema: Yes Labs: Laboratory Results - last 24 hr 05/18/19 05/18/19 06:50 06:50 WBC 23.5 H RBC 3.88 Hgb 11.1 Hct 34.5 MCV 89.1 MCH 28.5 MCHC 32.0 RDW 21.3 H Plt Count 470 H MPV 8.0 D Absolute Neuts (auto) 19.4 H Neutrophils % 82.4 Neutrophils % (Manual) 79.6 Band Neutrophils % 3.1 Lymphocytes % 8.1 Lymphocytes % (Manual) 7.2 L Monocytes % 7.6 Monocytes % (Manual) 6 Eosinophils % 1.0 Eosinophils % (Manual) 0.0 Basophils % 0.9 Basophils % (Manual) 1.0 D Myelocytes % (Man) 2 D Promyelocytes % (Man) 1 Blast Cells % (Manual) 0 Nucleated RBC % 0 Metamyelocytes 0 Hypochromia 0 Platelet Estimate Increased Polychromasia 1+ Poikilocytosis 0 Anisocytosis 1+ Microcytosis 1+ Macrocytosis 0 Sodium 134 L Potassium 3.4 L Chloride 93 L Carbon Dioxide 30 Anion Gap 12 BUN 21.9 H Creatinine 0.5 L Est GFR (CKD-EPI)AfAm 111.28 Est GFR (CKD-EPI)NonAf 96.02 Random Glucose 148 H Calcium 8.6 Total Bilirubin 0.9 AST 53 H ALT 11 L Alkaline Phosphatase 96 Total Protein 5.8 L Albumin 2.0 L Assessment/Plan Problem List - Problems (1) Change in mental status Code(s): R41.82 - ALTERED MENTAL STATUS, UNSPECIFIED (2) Hypothyroid Code(s): E03.9 - HYPOTHYROIDISM, UNSPECIFIED (3) Lesion of spleen Code(s): D73.9 - DISEASE OF SPLEEN, UNSPECIFIED (4) CAD (coronary artery disease) Code(s): I25.10 - ATHSCL HEART DISEASE OF [place] CORONARY ARTERY W/O ANG PCTRS (5) CHF exacerbation Code(s): I50.9 - HEART FAILURE, UNSPECIFIED (6) Cough Code(s): R05 - COUGH (7) Dementia Code(s): F03.90 - UNSPECIFIED DEMENTIA WITHOUT BEHAVIORAL DISTURBANCE (8) Depression Code(s): F32.9 - MAJOR DEPRESSIVE DISORDER, SINGLE EPISODE, UNSPECIFIED (9) Diverticula of colon Code(s): K57.30 - DVRTCLOS OF LG INT W/O PERFORATION OR ABSCESS W/O BLEEDING (10) Failure to thrive Code(s): [id number] - Qualifiers: Failure to thrive age range: in adult Qualified Code(s): R62.7 - Adult failure to thrive (11) Falling Code(s): W19.XXXA - UNSPECIFIED FALL, INITIAL ENCOUNTER (12) Gait abnormality Code(s): R26.9 - UNSPECIFIED ABNORMALITIES OF GAIT AND MOBILITY (13) Hyperlipidemia Code(s): E78.5 - HYPERLIPIDEMIA, UNSPECIFIED (14) Hypertension Code(s): I10 - ESSENTIAL (PRIMARY) HYPERTENSION (15) Metabolic encephalopathy Code(s): G93.41 - METABOLIC ENCEPHALOPATHY (16) Rheumatoid arthritis Code(s): M06.9 - RHEUMATOID ARTHRITIS, UNSPECIFIED (17) S/P cholecystectomy Code(s): Z90.49 - ACQUIRED ABSENCE OF OTHER SPECIFIED PARTS OF DIGESTIVE TRACT (18) Community acquired pneumonia Code(s): J18.9 - PNEUMONIA, UNSPECIFIED ORGANISM RUL (18) COPD Assessment/Plan ABX per ID O2 as needed BD TX PRN Aspiration precautions Fall precautions No smoking Dr Baugh Problem List - Problems (1) Change in mental status Code(s): R41.82 - ALTERED MENTAL STATUS, UNSPECIFIED (2) Hypothyroid Code(s): E03.9 - HYPOTHYROIDISM, UNSPECIFIED (3) Lesion of spleen Code(s): D73.9 - DISEASE OF SPLEEN, UNSPECIFIED (4) CAD (coronary artery disease) Code(s): I25.10 - ATHSCL HEART DISEASE OF [place] CORONARY ARTERY W/O ANG PCTRS (5) CHF exacerbation Code(s): I50.9 - HEART FAILURE, UNSPECIFIED (6) Cough Code(s): R05 - COUGH (7) Dementia Code(s): F03.90 - UNSPECIFIED DEMENTIA WITHOUT BEHAVIORAL DISTURBANCE (8) Depression Code(s): F32.9 - MAJOR DEPRESSIVE DISORDER, SINGLE EPISODE, UNSPECIFIED (9) Diverticula of colon Code(s): K57.30 - DVRTCLOS OF LG INT W/O PERFORATION OR ABSCESS W/O BLEEDING (10) Failure to thrive Code(s): [id number] - Qualifiers: Failure to thrive age range: in adult Qualified Code(s): R62.7 - Adult failure to thrive (11) Falling Code(s): W19.XXXA - UNSPECIFIED FALL, INITIAL ENCOUNTER (12) Gait abnormality Code(s): R26.9 - UNSPECIFIED ABNORMALITIES OF GAIT AND MOBILITY (13) Hyperlipidemia Code(s): E78.5 - HYPERLIPIDEMIA, UNSPECIFIED (14) Hypertension Code(s): I10 - ESSENTIAL (PRIMARY) HYPERTENSION (15) Metabolic encephalopathy Code(s): G93.41 - METABOLIC ENCEPHALOPATHY (16) Rheumatoid arthritis Code(s): M06.9 - RHEUMATOID ARTHRITIS, UNSPECIFIED (17) S/P cholecystectomy Code(s): Z90.49 - ACQUIRED ABSENCE OF OTHER SPECIFIED PARTS OF DIGESTIVE TRACT (18) Community acquired pneumonia Code(s): J18.9 - PNEUMONIA, UNSPECIFIED ORGANISM
--- NOTE | 2019-05-18 13:58 | PN ---
Progress Note, Physician Chief Complaint: patient with elevated wbc count adn complaining of abdominal pain - Current Medication List Current Medications: Active Medications Acetaminophen (Tylenol -) 650 mg PO Q4H PRN PRN Reason: PAIN Last Admin: 05/15/19 13:42 Dose: 650 mg Amlodipine Besylate (Norvasc -) 5 mg PO DAILY [facility] Last Admin: 05/18/19 10:22 Dose: 5 mg Digoxin (Lanoxin -) 0.125 mg PO DAILY [facility] Last Admin: 05/18/19 10:22 Dose: 0.125 mg Diltiazem HCl (Cardizem Cd -) 120 mg PO DAILY [facility] Last Admin: 05/18/19 10:22 Dose: 120 mg Enalapril Maleate (Vasotec -) 20 mg PO DAILY [facility] Last Admin: 05/18/19 10:22 Dose: 20 mg Furosemide (Lasix Injection -) 40 mg IVPUSH BID@0600,1400 [facility] Last Admin: 05/18/19 06:24 Dose: 40 mg Piperacillin Sod/Tazobactam (Sod 3.375 gm/ Dextrose) 50 mls @ 100 mls/hr IVPB Q8H-IV [facility]; Protocol Last Admin: 05/18/19 10:23 Dose: Not Given Ipratropium [place] (Atrovent 0.02% Nebulizer -) 1 amp NEB RTID [facility] Last Admin: 05/18/19 07:30 Dose: Not Given Levalbuterol HCl (Xopenex) 0.63 mg IH RTID [facility] Last Admin: 05/18/19 07:30 Dose: Not Given Levothyroxine Sodium (Synthroid -) 25 mcg PO DAILY@0700 [facility] Last Admin: 05/18/19 06:22 Dose: 25 mcg Metoprolol Succinate (Toprol Xl -) 50 mg PO DAILY [facility] Last Admin: 05/18/19 10:22 Dose: 50 mg Ondansetron HCl (Zofran -) 4 mg PO Q8H PRN PRN Reason: NAUSEA AND/OR VOMITING Potassium Chloride (K-Dur -) 40 meq PO DAILY [facility] Last Admin: 05/18/19 10:36 Dose: Not Given - Objective Vital Signs: Vital Signs Temperature 98.2 F 05/18/19 02:00 Pulse Rate 102 H 05/18/19 10:22 Respiratory Rate 20 05/18/19 06:00 Blood Pressure 128/56 L 05/18/19 06:00 O2 Sat by Pulse Oximetry (%) 93 L 05/17/19 10:00 Constitutional: Yes: Calm Cardiovascular: Yes: Regular Rate and Rhythm, S1, S2 Respiratory: Yes: Diminished Gastrointestinal: Yes: Normal Bowel Sounds, Soft Labs: CBC, BMP 05/18/19 06:50 05/18/19 06:50 INR, PTT INR 1.24 (0.83-1.09) H 05/13/19 07:00 Problem List - Problems (1) Change in mental status Assessment/Plan: toxic metabolic encephalopathy secondary ro PNA leukocytosis and low grade temp lactic acidosis resolved on iv zosyn Microbiology 05/12/19 21:10 Urine For Antigen Detection Legionella Antigen - Final 05/12/19 21:10 Urine For Antigen Detection Streptococcus pneumoniae Antigen (M - Final 05/12/19 10:20 Urine - Urine - Catheterized Urine Culture - Final NO GROWTH OBTAINED 05/12/19 08:40 Blood - Peripheral Venous Blood Culture - Preliminary NO GROWTH OBTAINED AFTER 72 HOURS, INCUBATION TO CONTINUE FOR 2 DAYS. 05/12/19 08:40 Blood - Peripheral Venous Blood Culture - Preliminary NO GROWTH OBTAINED AFTER 72 HOURS, INCUBATION TO CONTINUE FOR 2 DAYS. Code(s): R41.82 - ALTERED MENTAL STATUS, UNSPECIFIED (2) Lesion of spleen Assessment/Plan: appeciate heme evaluation Code(s): D73.9 - DISEASE OF SPLEEN, UNSPECIFIED (3) Hypothyroid Assessment/Plan: tsh synthroid Code(s): E03.9 - HYPOTHYROIDISM, UNSPECIFIED (4) CAD (coronary artery disease) Assessment/Plan: home medications restarted Code(s): I25.10 - ATHSCL HEART DISEASE OF [place] CORONARY ARTERY W/O ANG PCTRS (5) Abdominal pain Assessment/Plan: recent ct scan no acute pathology noted will give zantac bid no loose bm Code(s): R10.9 - UNSPECIFIED ABDOMINAL PAIN Qualifiers:
[2019-05-18] MEDS ORDERED: RANITIDINE HCL 150 MG/10 ML UNIT-DOSE PO SCH (14:00)
[2019-05-18] MEDS ORDERED: PT OWN MED DRAWER 7, Y5N ONE (21:08)
[2019-05-18] MEDS: FAMOTIDINE 40 MG/5 ML ORAL SUSPENSION PO SCH (22:03)
[2019-05-19] MEDS ORDERED: DEXTROSE 5%-WATER - 50 ML IVPB ONE ×3 (01:14→16:58)
[2019-05-19] MEDS ORDERED: PIPERACILLIN/TAZOBACTAM 3.375 GM VIAL IVPB ONE ×3 (01:14→16:57)
[2019-05-19] MEDS: PIPERACILLIN/TAZOB 3.375 GM 3.375 GM in DEXTROSE 5%-WATER - 50 ML IVPB SCH ×3 (03:26→17:04)
[2019-05-19] MEDS: FUROSEMIDE 40 MG/4 ML INJECTABLE VIAL IVPUSH SCH ×3 (04:45→14:27)
[2019-05-19] MEDS: LEVOTHYROXINE NA 25 MCG TABLET (FP) PO SCH (06:38)
[2019-05-19 07:39] LABS: HEMATOCRIT 30.8 % (32.4-45.2); HEMOGLOBIN 10.3 GM/dL (10.7-15.3); LYMPH % 6.4 % (8-40); MCHC 33.3 g/dl (32.0-36.0); MEAN CELL VOLUME 87.2 fl (80-96); MEAN PLT VOLUME 7.2 fl (7.5-11.1); MONO % 7.5 % (3.8-10.2); NEUT % 83.1 % (42.8-82.8); PLATELET COUNT 452 K/MM3 (134-434); RBC 3.54 M/mm3 (3.60-5.2); RDW 20.9 % (11.6-15.6)
--- NOTE | 2019-05-19 09:33 | PN ---
Progress Note, Physician Chief Complaint: NO CP, dizziness Tele: Sinus, sinus tach, APCS WBC coming down - Current Medication List Current Medications: Active Medications Acetaminophen (Tylenol -) 650 mg PO Q4H PRN PRN Reason: PAIN Last Admin: 05/15/19 13:42 Dose: 650 mg Amlodipine Besylate (Norvasc -) 5 mg PO DAILY [facility] Last Admin: 05/18/19 10:22 Dose: 5 mg Digoxin (Lanoxin -) 0.125 mg PO DAILY [facility] Last Admin: 05/18/19 10:22 Dose: 0.125 mg Diltiazem HCl (Cardizem Cd -) 120 mg PO DAILY [facility] Last Admin: 05/18/19 10:22 Dose: 120 mg Enalapril Maleate (Vasotec -) 20 mg PO DAILY [facility] Last Admin: 05/18/19 10:22 Dose: 20 mg Famotidine (Famotidine) 20 mg PO BID [facility] Last Admin: 05/18/19 22:03 Dose: 20 mg Furosemide (Lasix Injection -) 40 mg IVPUSH BID@0600,1400 [facility] Last Admin: 05/19/19 06:38 Dose: 40 mg Piperacillin Sod/Tazobactam (Sod 3.375 gm/ Dextrose) 50 mls @ 100 mls/hr IVPB Q8H-IV [facility]; Protocol Last Admin: 05/19/19 03:26 Dose: 100 mls/hr Ipratropium [place] (Atrovent 0.02% Nebulizer -) 1 amp NEB RTID [facility] Last Admin: 05/18/19 20:14 Dose: 1 amp Levalbuterol HCl (Xopenex) 0.63 mg IH RTID [facility] Last Admin: 05/18/19 21:14 Dose: 0.63 mg Levothyroxine Sodium (Synthroid -) 25 mcg PO DAILY@0700 [facility] Last Admin: 05/19/19 06:38 Dose: 25 mcg Metoprolol Succinate (Toprol Xl -) 50 mg PO DAILY [facility] Last Admin: 05/18/19 10:22 Dose: 50 mg Ondansetron HCl (Zofran -) 4 mg PO Q8H PRN PRN Reason: NAUSEA AND/OR VOMITING Potassium Chloride (K-Dur -) 40 meq PO DAILY [facility] Last Admin: 05/18/19 10:36 Dose: Not Given - Objective Vital Signs: Vital Signs Temperature 98.6 F 05/19/19 06:00 Pulse Rate 60 05/19/19 06:00 Respiratory Rate 20 05/19/19 06:00 Blood Pressure 133/60 05/19/19 06:00 O2 Sat by Pulse Oximetry (%) 93 L 05/17/19 10:00 Constitutional: Yes: No Distress Cardiovascular: Yes: Regular Rate and Rhythm Respiratory: Yes: Other (decreased breath sounds b/l ; no active wheezing) Gastrointestinal: Yes: Soft Edema: No Neurological: Yes: Alert, Oriented ...Motor Strength: WNL Labs: CBC, BMP 05/19/19 06:09 05/18/19 06:50 INR, PTT INR 1.24 (0.83-1.09) H 05/13/19 07:00 Microbiology 05/15/19 15:10 Blood - Peripheral Venous Blood Culture - Preliminary NO GROWTH OBTAINED AFTER 72 HOURS, INCUBATION TO CONTINUE FOR 2 DAYS. 05/15/19 15:00 Blood - Peripheral Venous Blood Culture - Preliminary NO GROWTH OBTAINED AFTER 72 HOURS, INCUBATION TO CONTINUE FOR 2 DAYS. 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 Abx as per Pulm 2. On Dig, Dilt and Metoprolol for rate control (MAT and PSVT), now stable. Dig levels ok 3. ?Why also on Amlodipine (with Dilt); will review records, consider d/c Amlodipine. 3. Not on ASA for Presumed CAD due to prior NSAID ulcer disease 4. Outpatient f/u for chronic aneurysms.
[2019-05-19] MEDS: IPRATROPIUM BR 0.02% 0.5 MG/2.5 ML VIAL.NEB. NEB SCH (10:28)
[2019-05-19] MEDS: LEVALBUTEROL HCL 0.63 MG/3 ML VIAL.NEB. IH SCH (10:29)
[2019-05-19 10:37] LABS: ANISOCYTOSIS 1+; MACROCYTOSIS 0; PLATELET ESTIMATE NORMAL
[2019-05-19] MEDS: POTASSIUM CHLORIDE TABS 10 MEQ TABLET.ER (FP) PO SCH (10:47)
[2019-05-19] MEDS: DIGOXIN 0.125 MG TABLET (FP) PO SCH (10:47)
[2019-05-19] MEDS: amLODIPine BESYLATE 5 MG TABLET (FP) PO SCH (10:47)
[2019-05-19] MEDS: ENALAPRIL MALEATE 10 MG TABLET (FP) PO SCH (10:47)
[2019-05-19] MEDS ORDERED: PT OWN MED DRAWER 7, Y5N ONE ×2 (10:52→21:35)
[2019-05-19] MEDS: FAMOTIDINE 40 MG/5 ML ORAL SUSPENSION PO SCH ×2 (10:59→23:00)
--- NOTE | 2019-05-19 11:55 | PN ---
Progress Note (short form) - Note Progress Note: PULMONARY AWAKE/ALERT SHIPLEY IN PLACE VSS/AFEBRILE Constitutional: Yes: NAD Eyes: Yes: WNL HENT: Yes: WNL Neck: Yes: WNL Cardiovascular: Yes: Regular Rate and Rhythm, S1, S2 Respiratory: Yes: Diminished at the bases Gastrointestinal: Yes: Normal Bowel Sounds, Soft Extremities: Yes: WNL Edema: Yes Labs: REVIWED (1) Change in mental status Code(s): R41.82 - ALTERED MENTAL STATUS, UNSPECIFIED (2) Hypothyroid Code(s): E03.9 - HYPOTHYROIDISM, UNSPECIFIED (3) Lesion of spleen Code(s): D73.9 - DISEASE OF SPLEEN, UNSPECIFIED (4) CAD (coronary artery disease) Code(s): I25.10 - ATHSCL HEART DISEASE OF [place] CORONARY ARTERY W/O ANG PCTRS (5) CHF exacerbation Code(s): I50.9 - HEART FAILURE, UNSPECIFIED (6) Cough Code(s): R05 - COUGH (7) Dementia Code(s): F03.90 - UNSPECIFIED DEMENTIA WITHOUT BEHAVIORAL DISTURBANCE (8) Depression Code(s): F32.9 - MAJOR DEPRESSIVE DISORDER, SINGLE EPISODE, UNSPECIFIED (9) Diverticula of colon Code(s): K57.30 - DVRTCLOS OF LG INT W/O PERFORATION OR ABSCESS W/O BLEEDING (10) Failure to thrive Code(s): [id number] - Qualifiers: Failure to thrive age range: in adult Qualified Code(s): R62.7 - Adult failure to thrive (11) Falling Code(s): W19.XXXA - UNSPECIFIED FALL, INITIAL ENCOUNTER (12) Gait abnormality Code(s): R26.9 - UNSPECIFIED ABNORMALITIES OF GAIT AND MOBILITY (13) Hyperlipidemia Code(s): E78.5 - HYPERLIPIDEMIA, UNSPECIFIED (14) Hypertension Code(s): I10 - ESSENTIAL (PRIMARY) HYPERTENSION (15) Metabolic encephalopathy Code(s): G93.41 - METABOLIC ENCEPHALOPATHY (16) Rheumatoid arthritis Code(s): M06.9 - RHEUMATOID ARTHRITIS, UNSPECIFIED (17) S/P cholecystectomy Code(s): Z90.49 - ACQUIRED ABSENCE OF OTHER SPECIFIED PARTS OF DIGESTIVE TRACT (18) Community acquired pneumonia Code(s): J18.9 - PNEUMONIA, UNSPECIFIED ORGANISM RUL (18) COPD Assessment/Plan ABX per ID O2 as needed BD TX PRN Aspiration precautions Fall precautions smoking cessation Therese ALEMAN MD
--- NOTE | 2019-05-19 12:12 | PN ---
Progress Note, Physician Chief Complaint: patient seen and examined feeling a little better today but complains of nausea - Current Medication List Current Medications: Active Medications Acetaminophen (Tylenol -) 650 mg PO Q4H PRN PRN Reason: PAIN Last Admin: 05/15/19 13:42 Dose: 650 mg Digoxin (Lanoxin -) 0.125 mg PO DAILY [facility] Last Admin: 05/19/19 10:47 Dose: 0.125 mg Diltiazem HCl (Cardizem Cd -) 120 mg PO DAILY [facility] Last Admin: 05/19/19 10:47 Dose: 120 mg Enalapril Maleate (Vasotec -) 20 mg PO DAILY [facility] Last Admin: 05/19/19 10:47 Dose: 20 mg Famotidine (Famotidine) 20 mg PO BID [facility] Last Admin: 05/19/19 10:59 Dose: 20 mg Furosemide (Lasix Injection -) 40 mg IVPUSH BID@0600,1400 [facility] Last Admin: 05/19/19 06:38 Dose: 40 mg Piperacillin Sod/Tazobactam (Sod 3.375 gm/ Dextrose) 50 mls @ 100 mls/hr IVPB Q8H-IV [facility]; Protocol Last Admin: 05/19/19 10:46 Dose: 100 mls/hr Ipratropium [place] (Atrovent 0.02% Nebulizer -) 1 amp NEB RTID [facility] Last Admin: 05/19/19 10:28 Dose: 1 amp Levalbuterol HCl (Xopenex) 0.63 mg IH RTID [facility] Last Admin: 05/19/19 10:29 Dose: 0.63 mg Levothyroxine Sodium (Synthroid -) 25 mcg PO DAILY@0700 [facility] Last Admin: 05/19/19 06:38 Dose: 25 mcg Metoprolol Succinate (Toprol Xl -) 50 mg PO DAILY [facility] Last Admin: 05/19/19 10:52 Dose: 50 mg Ondansetron HCl (Zofran -) 4 mg PO Q8H PRN PRN Reason: NAUSEA AND/OR VOMITING Potassium Chloride (K-Dur -) 40 meq PO DAILY [facility] Last Admin: 05/19/19 10:47 Dose: 40 meq - Objective Vital Signs: Vital Signs Temperature 98 F 05/19/19 09:00 Pulse Rate 98 H 05/19/19 10:47 Respiratory Rate 20 05/19/19 09:00 Blood Pressure 114/80 05/19/19 09:00 O2 Sat by Pulse Oximetry (%) 93 L 05/17/19 10:00 Constitutional: Yes: Calm Neck: Yes: Trachea Midline Cardiovascular: Yes: Regular Rate and Rhythm, S1, S2 Respiratory: Yes: Rhonchi Gastrointestinal: Yes: Normal Bowel Sounds, Soft Edema: Yes Labs: CBC, BMP 05/19/19 06:09 05/18/19 06:50 INR, PTT INR 1.24 (0.83-1.09) H 05/13/19 07:00 Problem List - Problems (1) Change in mental status Assessment/Plan: toxic metabolic encephalopathy secondary ro PNA leukocytosis and low grade temp lactic acidosis resolved on iv zosyn Microbiology 05/12/19 21:10 Urine For Antigen Detection Legionella Antigen - Final 05/12/19 21:10 Urine For Antigen Detection Streptococcus pneumoniae Antigen (M - Final 05/12/19 10:20 Urine - Urine - Catheterized Urine Culture - Final NO GROWTH OBTAINED 05/12/19 08:40 Blood - Peripheral Venous Blood Culture - Preliminary NO GROWTH OBTAINED AFTER 72 HOURS, INCUBATION TO CONTINUE FOR 2 DAYS. 05/12/19 08:40 Blood - Peripheral Venous Blood Culture - Preliminary NO GROWTH OBTAINED AFTER 72 HOURS, INCUBATION TO CONTINUE FOR 2 DAYS. Code(s): R41.82 - ALTERED MENTAL STATUS, UNSPECIFIED (2) Lesion of spleen Assessment/Plan: appeciate heme evaluation Code(s): D73.9 - DISEASE OF SPLEEN, UNSPECIFIED (3) Hypothyroid Assessment/Plan: tsh synthroid Code(s): E03.9 - HYPOTHYROIDISM, UNSPECIFIED (4) CAD (coronary artery disease) Assessment/Plan: ob BB no aspirin bc of previuos PUD Code(s): I25.10 - ATHSCL HEART DISEASE OF [place] CORONARY ARTERY W/O ANG PCTRS (5) Abdominal pain Assessment/Plan: recent ct scan no acute pathology noted will give zantac bid no loose bm Code(s): R10.9 - UNSPECIFIED ABDOMINAL PAIN Qualifiers: (6) Hypertension Assessment/Plan: enealpril Code(s): I10 - ESSENTIAL (PRIMARY) HYPERTENSION (7) PSVT (paroxysmal supraventricular tachycardia) Assessment/Plan: controlled on digxin and diltiazem and meotprolol Code(s): I47.1 - SUPRAVENTRICULAR TACHYCARDIA (8) CHF exacerbation Assessment/Plan: iv lasix bid Code(s): I50.9 - HEART FAILURE, UNSPECIFIED
[2019-05-19 13:40] LABS: ALBUMIN 1.9 g/dl (3.4-5.0); BILIRUBIN,TOTAL 0.8 mg/dL (0.2-1); BLOOD UREA NITROGEN 17.6 mg/dL (7-18); CALCIUM 8.1 mg/dL (8.5-10.1); CREATININE 0.6 mg/dL (0.55-1.3); POTASSIUM 3.3 mmol/L (3.5-5.1); TOT PROT 5.9 g/dl (6.4-8.2)
--- NOTE | 2019-05-19 16:33 | PN ---
Progress Note, Physician History of Present Illness: AWAKE MORE COMFORTABLE SUPINE IN BED DENIES DYSPNEA/ COUGH AFEBRILE LEGIONELLA AG (-) - Current Medication List Current Medications: Active Medications Acetaminophen (Tylenol -) 650 mg PO Q4H PRN PRN Reason: PAIN Last Admin: 05/15/19 13:42 Dose: 650 mg Digoxin (Lanoxin -) 0.125 mg PO DAILY [facility] Last Admin: 05/19/19 10:47 Dose: 0.125 mg Diltiazem HCl (Cardizem Cd -) 120 mg PO DAILY [facility] Last Admin: 05/19/19 10:47 Dose: 120 mg Enalapril Maleate (Vasotec -) 20 mg PO DAILY [facility] Last Admin: 05/19/19 10:47 Dose: 20 mg Famotidine (Famotidine) 20 mg PO BID [facility] Last Admin: 05/19/19 10:59 Dose: 20 mg Furosemide (Lasix Injection -) 40 mg IVPUSH BID@0600,1400 [facility] Last Admin: 05/19/19 14:27 Dose: 40 mg Piperacillin Sod/Tazobactam (Sod 3.375 gm/ Dextrose) 50 mls @ 100 mls/hr IVPB Q8H-IV [facility]; Protocol Last Admin: 05/19/19 10:46 Dose: 100 mls/hr Levothyroxine Sodium (Synthroid -) 25 mcg PO DAILY@0700 [facility] Last Admin: 05/19/19 06:38 Dose: 25 mcg Metoprolol Succinate (Toprol Xl -) 50 mg PO DAILY [facility] Last Admin: 05/19/19 10:52 Dose: 50 mg Ondansetron HCl (Zofran -) 4 mg PO Q8H PRN PRN Reason: NAUSEA AND/OR VOMITING Potassium Chloride (K-Dur -) 40 meq PO DAILY [facility] Last Admin: 05/19/19 10:47 Dose: 40 meq - Objective Vital Signs: Vital Signs Temperature 98.2 F 05/19/19 14:20 Pulse Rate 83 05/19/19 14:20 Respiratory Rate 20 05/19/19 14:20 Blood Pressure 120/60 05/19/19 14:20 O2 Sat by Pulse Oximetry (%) 95 05/19/19 09:00 Constitutional: Yes: No Distress Eyes: Yes: Conjunctiva Clear Cardiovascular: Yes: Regular Rate and Rhythm, S1, S2 Respiratory: Yes: CTA Bilaterally Gastrointestinal: Yes: Normal Bowel Sounds, Soft. No: Tenderness Extremities: Yes: Other (SL ERYTHEMA DISTAL L LE) Edema: LLE: 2+, RLE: 2+ Labs: CBC, BMP 05/19/19 06:09 05/19/19 12:10 INR, PTT INR 1.24 (0.83-1.09) H 05/13/19 07:00 Assessment/Plan PNEUMONIA RECURRENT FEVER LACTIC ACIDOSIS TOXIC METABOLIC ENCEPHALOPATHY REPEAT NO GROWTH WBC REMAINS ELEVATED CONTINUE ZOSYN
[2019-05-20] MEDS ORDERED: PIPERACILLIN/TAZOBACTAM 3.375 GM VIAL IVPB ONE ×3 (03:50→16:44)
[2019-05-20] MEDS ORDERED: DEXTROSE 5%-WATER - 50 ML IVPB ONE ×3 (03:50→16:45)
[2019-05-20] MEDS: PIPERACILLIN/TAZOB 3.375 GM 3.375 GM in DEXTROSE 5%-WATER - 50 ML IVPB SCH ×3 (03:55→17:31)
[2019-05-20] MEDS: LEVOTHYROXINE NA 25 MCG TABLET (FP) PO SCH (06:06)
[2019-05-20] MEDS: ACETAMINOPHEN 325 MG TABLET (FP) PO PRN (06:10)
[2019-05-20] MEDS: ALBUTEROL SO4 2.5/IPRATROPIUM 0.5 INH SOL 3 ML VIAL.NEB. NEB PRN (06:25)
--- NOTE | 2019-05-20 06:36 | PN ---
Progress Note, Physician Chief Complaint: low grade fever C/o of pleuritic CP today LLE is erythematous and mildly edematous TLE: ectopic atrial rhythm, and periods of mild MAT - Current Medication List Current Medications: Active Medications Acetaminophen (Tylenol -) 650 mg PO Q4H PRN PRN Reason: PAIN Last Admin: 05/20/19 06:10 Dose: 650 mg Albuterol/Ipratropium (Duoneb -) 1 amp NEB Q6H PRN PRN Reason: SHORTNESS OF BREATH Digoxin (Lanoxin -) 0.125 mg PO DAILY [facility] Last Admin: 05/19/19 10:47 Dose: 0.125 mg Diltiazem HCl (Cardizem Cd -) 120 mg PO DAILY [facility] Last Admin: 05/19/19 10:47 Dose: 120 mg Enalapril Maleate (Vasotec -) 20 mg PO DAILY [facility] Last Admin: 05/19/19 10:47 Dose: 20 mg Famotidine (Famotidine) 20 mg PO BID [facility] Last Admin: 05/19/19 23:00 Dose: 20 mg Furosemide (Lasix Injection -) 40 mg IVPUSH BID@0600,1400 [facility] Last Admin: 05/19/19 14:27 Dose: 40 mg Piperacillin Sod/Tazobactam (Sod 3.375 gm/ Dextrose) 50 mls @ 100 mls/hr IVPB Q8H-IV [facility]; Protocol Last Admin: 05/20/19 03:55 Dose: 100 mls/hr Levothyroxine Sodium (Synthroid -) 25 mcg PO DAILY@0700 [facility] Last Admin: 05/20/19 06:06 Dose: 25 mcg Metoprolol Succinate (Toprol Xl -) 50 mg PO DAILY [facility] Last Admin: 05/19/19 10:52 Dose: 50 mg Ondansetron HCl (Zofran -) 4 mg PO Q8H PRN PRN Reason: NAUSEA AND/OR VOMITING Potassium Chloride (K-Dur -) 40 meq PO DAILY [facility] Last Admin: 05/19/19 10:47 Dose: 40 meq - Objective Vital Signs: Vital Signs Temperature 100.3 F H 05/20/19 06:00 Pulse Rate 84 05/20/19 06:00 Respiratory Rate 27 H 05/20/19 06:00 Blood Pressure 131/78 05/20/19 06:00 O2 Sat by Pulse Oximetry (%) 94 L 05/19/19 22:00 Constitutional: Yes: No Distress Cardiovascular: Yes: Regular Rate and Rhythm Respiratory: Yes: Other (decreased breath sounds but no active wheezing.) Gastrointestinal: Yes: Soft Edema: Yes Edema: LLE: 1+ (erythema) Neurological: Yes: Alert, Oriented Labs: CBC, BMP 05/19/19 06:09 05/19/19 12:10 INR, PTT INR 1.24 (0.83-1.09) H 05/13/19 07:00 - ....Imaging EKG: Image Reviewed Assessment/Plan IMP: PNA/Sepsis Possible syncope in setting of above, with SVT in setting acute infection/sepsis , now resolved COPD h/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 Abx as per Pulm 2. On Dig, Dilt and Metoprolol for rate control (MAT and PSVT), now stable. Dig levels ok 3. Chest CTA, rule out PE. 4. Not on ASA for Presumed CAD due to prior NSAID ulcer disease 5. D/w primary team: LLE appears cellulitic, on abx. ?DVT. Plan for CTA as above. Will also obtain LE venous duplex. 6. Outpatient f/u for chronic aneurysms.
[2019-05-20 08:02] LABS: BILIRUBIN,TOTAL 0.9 mg/dL (0.2-1); BLOOD UREA NITROGEN 12.7 mg/dL (7-18); CALCIUM 8.1 mg/dL (8.5-10.1); CREATININE 0.5 mg/dL (0.55-1.3); POTASSIUM 3.4 mmol/L (3.5-5.1)
[2019-05-20] MEDS: POTASSIUM CHLORIDE TABS 10 MEQ TABLET.ER (FP) PO SCH (09:27)
[2019-05-20] MEDS: ENALAPRIL MALEATE 10 MG TABLET (FP) PO SCH (09:28)
[2019-05-20] MEDS: DIGOXIN 0.125 MG TABLET (FP) PO SCH (09:29)
--- NOTE | 2019-05-20 09:50 | PN ---
Progress Note, Physician Chief Complaint: Pneumonia CHF Metabolic Encephalopathy History of Present Illness: Previous notes and events reviewed awake and alert NAD complain of sharp pain with breathing febrile with temp 100.3F LLE edema and erythema noted - Current Medication List Current Medications: Active Medications Acetaminophen (Tylenol -) 650 mg PO Q4H PRN PRN Reason: PAIN Last Admin: 05/20/19 06:10 Dose: 650 mg Albuterol/Ipratropium (Duoneb -) 1 amp NEB Q6H PRN PRN Reason: SHORTNESS OF BREATH Last Admin: 05/20/19 06:25 Dose: 1 amp Digoxin (Lanoxin -) 0.125 mg PO DAILY [facility] Last Admin: 05/20/19 09:29 Dose: 0.125 mg Diltiazem HCl (Cardizem Cd -) 120 mg PO DAILY [facility] Last Admin: 05/20/19 09:28 Dose: 120 mg Enalapril Maleate (Vasotec -) 20 mg PO DAILY [facility] Last Admin: 05/20/19 09:28 Dose: 20 mg Famotidine (Famotidine) 20 mg PO BID [facility] Last Admin: 05/19/19 23:00 Dose: 20 mg Furosemide (Lasix Injection -) 40 mg IVPUSH BID@0600,1400 [facility] Last Admin: 05/19/19 14:27 Dose: 40 mg Piperacillin Sod/Tazobactam (Sod 3.375 gm/ Dextrose) 50 mls @ 100 mls/hr IVPB Q8H-IV [facility]; Protocol Last Admin: 05/20/19 03:55 Dose: 100 mls/hr Levothyroxine Sodium (Synthroid -) 25 mcg PO DAILY@0700 [facility] Last Admin: 05/20/19 06:06 Dose: 25 mcg Metoprolol Succinate (Toprol Xl -) 50 mg PO DAILY [facility] Last Admin: 05/20/19 09:28 Dose: 50 mg Ondansetron HCl (Zofran -) 4 mg PO Q8H PRN PRN Reason: NAUSEA AND/OR VOMITING Potassium Chloride (K-Dur -) 40 meq PO DAILY [facility] Last Admin: 05/20/19 09:27 Dose: 40 meq - Objective Vital Signs: Vital Signs Temperature 97.6 F 05/20/19 09:35 Pulse Rate 81 05/20/19 09:35 Respiratory Rate 18 05/20/19 09:35 Blood Pressure 115/55 L 05/20/19 09:35 O2 Sat by Pulse Oximetry (%) 94 L 05/19/19 22:00 Constitutional: Yes: No Distress, Calm Eyes: Yes: Conjunctiva Clear HENT: Yes: Atraumatic Cardiovascular: Yes: Regular Rate and Rhythm Respiratory: Yes: Regular, Cough, Diminished, On Nasal O2 Gastrointestinal: Yes: Normal Bowel Sounds, Soft Musculoskeletal: Yes: Muscle Weakness Extremities: Yes: WNL, Erythema (LLE-warm to touch, tender to palpation) Edema: Yes (LLE >RLE) Edema: LLE: 1+ Neurological: Yes: Alert, Oriented Psychiatric: Yes: Alert, Oriented Labs: CBC, BMP 05/19/19 06:09 05/20/19 05:24 INR, PTT INR 1.24 (0.83-1.09) H 05/13/19 07:00 Microbiology 05/15/19 15:00 Blood - Peripheral Venous Blood Culture - Preliminary NO GROWTH OBTAINED AFTER 96 HOURS, INCUBATION TO CONTINUE FOR 1 DAYS. 05/15/19 15:10 Blood - Peripheral Venous Blood Culture - Preliminary NO GROWTH OBTAINED AFTER 96 HOURS, INCUBATION TO CONTINUE FOR 1 DAYS. 05/12/19 08:40 Blood - Peripheral Venous Blood Culture - Final NO GROWTH AFTER 5 DAYS INCUBATION 05/12/19 08:40 Blood - Peripheral Venous Blood Culture - Final NO GROWTH AFTER 5 DAYS INCUBATION 05/12/19 21:10 Urine For Antigen Detection Legionella Antigen - Final 05/12/19 21:10 Urine For Antigen Detection Streptococcus pneumoniae Antigen (M - Final 05/12/19 10:20 Urine - Urine - Catheterized Urine Culture - Final NO GROWTH OBTAINED Problem List - Problems (1) Hypothyroid Assessment/Plan: -Levothyroxine Code(s): E03.9 - HYPOTHYROIDISM, UNSPECIFIED (2) PSVT (paroxysmal supraventricular tachycardia) Assessment/Plan: -Cardiology on board -tele monitoring -Digoxin, Cardizem, Metoprolol Code(s): I47.1 - SUPRAVENTRICULAR TACHYCARDIA (3) Pneumonia Assessment/Plan: -ID on board -Pulm on board -bronchodilators -Leukocytosis WBC 20.0 -febrile -Zosyn -tylenol prn for temp >100F -CXR shows acute lobar consolidation involving the entire RUL consistent with acute RUL pneumonia -O2 via NC -keep SpO2 >90% Code(s): J18.9 - PNEUMONIA, UNSPECIFIED ORGANISM (4) CAD (coronary artery disease) Assessment/Plan: -no Aspirin due to hx of PUD -Chest CTA to R/O PE due to complaint of sharp pain with breathing Code(s): I25.10 - ATHSCL HEART DISEASE OF [place] CORONARY ARTERY W/O ANG PCTRS (5) COPD exacerbation Assessment/Plan: -Pulm on board -Bronchodilator -Keep SpO2 >90% -o2 via NC Code(s): J44.1 - CHRONIC OBSTRUCTIVE PULMONARY DISEASE W (ACUTE) EXACERBATION (6) Hypertension Assessment/Plan: -Enalapril -low Na diet Code(s): I10 - ESSENTIAL (PRIMARY) HYPERTENSION (7) Metabolic encephalopathy Assessment/Plan: -resolved Code(s): G93.41 - METABOLIC ENCEPHALOPATHY (8) Edema of left lower extremity Assessment/Plan: -Leukocytosis WBC 20.0 -febrile -LLE Doppler R/O DVT vs Cellulitis Code(s): R60.0 - LOCALIZED EDEMA Assessment/Plan see problem list
[2019-05-20] MEDS: FAMOTIDINE 40 MG/5 ML ORAL SUSPENSION PO SCH ×2 (10:00→22:29)
--- NOTE | 2019-05-20 10:41 | PN ---
Progress Note (short form) - Note Progress Note: oob in chair Vital Signs Period Temp Pulse Resp BP Sys/Barillas Pulse Ox Last 24 Hr 97.5 F-100.3 F 74-98 18-27 103-131/55-78 94 cor-rrr lungs decreased bs at bases abd soft,mild midepigastric discomfort to palpation ext +edema LLe greater then rle- +warmth and erythema CBC, BMP 05/19/19 06:09 05/20/19 05:24 Microbiology 05/15/19 15:00 Blood - Peripheral Venous Blood Culture - Preliminary NO GROWTH OBTAINED AFTER 96 HOURS, INCUBATION TO CONTINUE FOR 1 DAYS. 05/15/19 15:10 Blood - Peripheral Venous Blood Culture - Preliminary NO GROWTH OBTAINED AFTER 96 HOURS, INCUBATION TO CONTINUE FOR 1 DAYS. 05/12/19 08:40 Blood - Peripheral Venous Blood Culture - Final NO GROWTH AFTER 5 DAYS INCUBATION 05/12/19 08:40 Blood - Peripheral Venous Blood Culture - Final NO GROWTH AFTER 5 DAYS INCUBATION 05/12/19 21:10 Urine For Antigen Detection Legionella Antigen - Final 05/12/19 21:10 Urine For Antigen Detection Streptococcus pneumoniae Antigen (M - Final 05/12/19 10:20 Urine - Urine - Catheterized Urine Culture - Final NO GROWTH OBTAINED Current Medications Acetaminophen (Tylenol -) 650 mg PO Q4H PRN PRN Reason: PAIN Last Admin: 05/20/19 06:10 Dose: 650 mg Albuterol/Ipratropium (Duoneb -) 1 amp NEB Q6H PRN PRN Reason: SHORTNESS OF BREATH Last Admin: 05/20/19 06:25 Dose: 1 amp Digoxin (Lanoxin -) 0.125 mg PO DAILY [facility] Last Admin: 05/20/19 09:29 Dose: 0.125 mg Diltiazem HCl (Cardizem Cd -) 120 mg PO DAILY [facility] Last Admin: 05/20/19 09:28 Dose: 120 mg Enalapril Maleate (Vasotec -) 20 mg PO DAILY [facility] Last Admin: 05/20/19 09:28 Dose: 20 mg Famotidine (Famotidine) 20 mg PO BID [facility] Last Admin: 05/19/19 23:00 Dose: 20 mg Furosemide (Lasix Injection -) 40 mg IVPUSH BID@0600,1400 [facility] Last Admin: 05/19/19 14:27 Dose: 40 mg Piperacillin Sod/Tazobactam (Sod 3.375 gm/ Dextrose) 50 mls @ 100 mls/hr IVPB Q8H-IV [facility]; Protocol Last Admin: 05/20/19 03:55 Dose: 100 mls/hr Levothyroxine Sodium (Synthroid -) 25 mcg PO DAILY@0700 [facility] Last Admin: 05/20/19 06:06 Dose: 25 mcg Metoprolol Succinate (Toprol Xl -) 50 mg PO DAILY [facility] Last Admin: 05/20/19 09:28 Dose: 50 mg Ondansetron HCl (Zofran -) 4 mg PO Q8H PRN PRN Reason: NAUSEA AND/OR VOMITING Potassium Chloride (K-Dur -) 40 meq PO DAILY [facility] Last Admin: 05/20/19 09:27 Dose: 40 meq a/p RUL infiltrate- persistent leukocytosis- on day #8 zosyn- no steroids erythema and swelling LLE repeat cultures negative add vancomycin for cellulitis of the leg for duplex today and chest ct recent ct abd/pelvis-no acute process noted chf- on diuretics, has hayder d/w hospitalist chart reviewed
[2019-05-20] MEDS: VANCOMYCIN 1 GRAM (PRE-DOCKED) 1,000 MG/250 ML BAG IVPB SCH (12:12)
--- NOTE | 2019-05-20 12:16 | PN ---
Progress Note (short form) - Note Progress Note: PULMONARY AWAKE/ALERT SHIPLEY IN PLACE VSS/AFEBRILE Constitutional: Yes: NAD Eyes: Yes: WNL HENT: Yes: WNL Neck: Yes: WNL Cardiovascular: Yes: Regular Rate and Rhythm, S1, S2 Respiratory: Yes: Diminished at the bases Gastrointestinal: Yes: Normal Bowel Sounds, Soft Extremities: Yes: WNL Edema: Yes Labs/meds/notes/images/micro reviewed: reviewed (1) Change in mental status Code(s): R41.82 - ALTERED MENTAL STATUS, UNSPECIFIED (2) Hypothyroid Code(s): E03.9 - HYPOTHYROIDISM, UNSPECIFIED (3) Lesion of spleen Code(s): D73.9 - DISEASE OF SPLEEN, UNSPECIFIED (4) CAD (coronary artery disease) Code(s): I25.10 - ATHSCL HEART DISEASE OF [place] CORONARY ARTERY W/O ANG PCTRS (5) CHF exacerbation Code(s): I50.9 - HEART FAILURE, UNSPECIFIED (6) Cough Code(s): R05 - COUGH (7) Dementia Code(s): F03.90 - UNSPECIFIED DEMENTIA WITHOUT BEHAVIORAL DISTURBANCE (8) Depression Code(s): F32.9 - MAJOR DEPRESSIVE DISORDER, SINGLE EPISODE, UNSPECIFIED (9) Diverticula of colon Code(s): K57.30 - DVRTCLOS OF LG INT W/O PERFORATION OR ABSCESS W/O BLEEDING (10) Failure to thrive Code(s): CNV7890 - Qualifiers: Failure to thrive age range: in adult Qualified Code(s): R62.7 - Adult failure to thrive (11) Falling Code(s): W19.XXXA - UNSPECIFIED FALL, INITIAL ENCOUNTER (12) Gait abnormality Code(s): R26.9 - UNSPECIFIED ABNORMALITIES OF GAIT AND MOBILITY (13) Hyperlipidemia Code(s): E78.5 - HYPERLIPIDEMIA, UNSPECIFIED (14) Hypertension Code(s): I10 - ESSENTIAL (PRIMARY) HYPERTENSION (15) Metabolic encephalopathy Code(s): G93.41 - METABOLIC ENCEPHALOPATHY (16) Rheumatoid arthritis Code(s): M06.9 - RHEUMATOID ARTHRITIS, UNSPECIFIED (17) S/P cholecystectomy Code(s): Z90.49 - ACQUIRED ABSENCE OF OTHER SPECIFIED PARTS OF DIGESTIVE TRACT (18) Community acquired pneumonia Code(s): J18.9 - PNEUMONIA, UNSPECIFIED ORGANISM RUL (18) COPD Assessment/Plan ABX per ID O2 as needed BD TX PRN Aspiration precautions Fall precautions smoking cessation Therese ALEMAN MD
[2019-05-20] MEDS: FUROSEMIDE 40 MG/4 ML INJECTABLE VIAL IVPUSH SCH (15:17)
[2019-05-20] MEDS ORDERED: HEPARIN NA (PORCINE) 5,000 UNITS/ML 1ML VIAL IVPUSH PRN (15:47)
[2019-05-20] MEDS: HEPARIN - 25,000 UNIT in SODIUM CHLORIDE 495 ML IV SCH (18:00)
[2019-05-21] MEDS ORDERED: PIPERACILLIN/TAZOBACTAM 3.375 GM VIAL IVPB ONE ×3 (01:08→17:20)
[2019-05-21] MEDS ORDERED: DEXTROSE 5%-WATER - 50 ML IVPB ONE ×3 (01:08→17:20)
[2019-05-21] MEDS: PIPERACILLIN/TAZOB 3.375 GM 3.375 GM in DEXTROSE 5%-WATER - 50 ML IVPB SCH ×3 (01:15→17:58)
[2019-05-21] MEDS: HEPARIN - 25,000 UNIT in SODIUM CHLORIDE 495 ML IV SCH ×2 (01:23→17:58)
[2019-05-21] MEDS: LEVOTHYROXINE NA 25 MCG TABLET (FP) PO SCH (06:21)
[2019-05-21] MEDS: FUROSEMIDE 40 MG/4 ML INJECTABLE VIAL IVPUSH SCH ×2 (06:21→14:38)
--- NOTE | 2019-05-21 06:45 | PN ---
Progress Note, Physician Chief Complaint: CTA negative for PE but repeat LE duplex confirmed DVT, started on UFH gtts Denies pleuritic CP today but is SOB at times No CP Tele: NSR w/ what appears to be an intermittent ectopic atrial rhythm - Current Medication List Current Medications: Active Medications Acetaminophen (Tylenol -) 650 mg PO Q4H PRN PRN Reason: PAIN Last Admin: 05/20/19 06:10 Dose: 650 mg Albuterol/Ipratropium (Duoneb -) 1 amp NEB Q6H PRN PRN Reason: SHORTNESS OF BREATH Last Admin: 05/20/19 06:25 Dose: 1 amp Digoxin (Lanoxin -) 0.125 mg PO DAILY [facility] Last Admin: 05/20/19 09:29 Dose: 0.125 mg Diltiazem HCl (Cardizem Cd -) 120 mg PO DAILY [facility] Last Admin: 05/20/19 09:28 Dose: 120 mg Enalapril Maleate (Vasotec -) 20 mg PO DAILY [facility] Last Admin: 05/20/19 09:28 Dose: 20 mg Famotidine (Famotidine) 20 mg PO BID [facility] Last Admin: 05/20/19 22:29 Dose: 20 mg Furosemide (Lasix Injection -) 40 mg IVPUSH BID@0600,1400 [facility] Last Admin: 05/21/19 06:21 Dose: 40 mg Heparin Sodium (Porcine) (Heparin -) 1,000 unit IVPUSH PRN PRN PRN Reason: Heparin Heparin Sodium (Porcine) (Heparin -) 5,000 unit IVPUSH PRN PRN PRN Reason: Heparin Last Admin: 05/21/19 01:23 EDT Dose: 5,000 unit Piperacillin Sod/Tazobactam (Sod 3.375 gm/ Dextrose) 50 mls @ 100 mls/hr IVPB Q8H-IV [facility]; Protocol Last Admin: 05/21/19 01:15 EDT Dose: 100 mls/hr Vancomycin HCl (Vancomycin (Pre-Docked)) 1,000 mg in 250 mls @ 166.667 mls/hr IVPB Q24H [facility]; Protocol Last Admin: 05/20/19 12:12 Dose: 166.667 mls/hr Heparin Sodium (Porcine) 25, (000 unit/ Sodium Chloride) 500 mls @ 20 mls/hr IV TITR [facility]; Protocol Last Admin: 05/21/19 01:23 EDT Dose: 1,150 unit/hr, 23 mls/hr Levothyroxine Sodium (Synthroid -) 25 mcg PO DAILY@0700 [facility] Last Admin: 05/21/19 06:21 Dose: 25 mcg Metoprolol Succinate (Toprol Xl -) 50 mg PO DAILY [facility] Last Admin: 05/20/19 09:28 Dose: 50 mg Ondansetron HCl (Zofran -) 4 mg PO Q8H PRN PRN Reason: NAUSEA AND/OR VOMITING Potassium Chloride (K-Dur -) 40 meq PO DAILY [facility] Last Admin: 05/20/19 09:27 Dose: 40 meq - Objective Vital Signs: Vital Signs Temperature 99 F 05/21/19 05:56 Pulse Rate 90 05/21/19 05:56 Respiratory Rate 22 H 05/21/19 05:56 Blood Pressure 116/62 05/21/19 05:56 O2 Sat by Pulse Oximetry (%) 93 L 05/20/19 21:00 Constitutional: Yes: No Distress Eyes: Yes: Conjunctiva Clear Cardiovascular: Yes: Regular Rate and Rhythm Respiratory: Yes: Other (markedly decreased b/l breath sounds with no rales or active wheezing) Gastrointestinal: Yes: Soft (NT) Genitourinary: Yes: Other (singletary in place with yellow urine.) Edema: Yes Edema: LLE: 2+ (erythema), RLE: 1+ Neurological: Yes: Alert, Oriented ...Motor Strength: WNL Labs: INR, PTT INR 1.24 (0.83-1.09) H 05/13/19 07:00 Microbiology 05/15/19 15:10 Blood - Peripheral Venous Blood Culture - Preliminary NO GROWTH OBTAINED AFTER 96 HOURS, INCUBATION TO CONTINUE FOR 1 DAYS. 05/15/19 15:00 Blood - Peripheral Venous Blood Culture - Preliminary NO GROWTH OBTAINED AFTER 96 HOURS, INCUBATION TO CONTINUE FOR 1 DAYS. Selected Entries 05/20/19 06:00 Temperature 100.3 F H Laboratory Tests 05/19/19 05/20/19 05/21/19 06:09 05:24 06:16 WBC 20.0 H 18.6 H Hgb 10.3 L 10.6 L Plt Count 452 H 444 H PTT (Actin FS) Sodium 134 L Potassium Creatinine 0.5 L 05/21/19 05/21/19 06:16 08:00 WBC Hgb Plt Count PTT (Actin FS) 59.8 H Sodium 136 Potassium 3.8 Creatinine 0.5 L - ....Imaging EKG: Image Reviewed Assessment/Plan IMP: LLE DVT PNA/Sepsis Possible syncope in setting of above, with SVT in setting acute infection/sepsis , now resolved COPD h/o tachy CM due to MAT with EF now normalized Possible CAD (prior mild abn stress) Peptic ulcer disease (NSAIDS) Thoracic and abdominal aneurysms REC: 1. Started on UFH gtts yesterday; if tolerates well (hx of peptic ulcer/GIB) then can convert to NOAC. 2. Abx for PNA as per ID; decision re continuation Vanco for cellulitis as per ID. 3. On Dig, Dilt and Metoprolol for rate control (MAT and PSVT), now stable. Dig levels ok 4. Not on ASA for Presumed CAD (previous abnl stress MPI) due to NSAID ulcer disease 5. Outpatient f/u for chronic aneurysms.
[2019-05-21 06:48] LABS: HEMATOCRIT 30.3 % (32.4-45.2); HEMOGLOBIN 10.6 GM/dL (10.7-15.3); MCH 30.9 pg (25.7-33.7); MEAN CELL VOLUME 88.3 fl (80-96); MEAN PLT VOLUME 6.9 fl (7.5-11.1); PLATELET COUNT 444 K/MM3 (134-434); RBC 3.43 M/mm3 (3.60-5.2); RDW 20.6 % (11.6-15.6); WHITE BLOOD COUNT 18.6 K/mm3 (4.0-10.0)
[2019-05-21] MEDS ORDERED: PT OWN MED DRAWER 7, Y5N ONE ×2 (06:53→17:53)
[2019-05-21 08:21] LABS: BILIRUBIN,TOTAL 0.7 mg/dL (0.2-1); BLOOD UREA NITROGEN 8.3 mg/dL (7-18); CALCIUM 8.1 mg/dL (8.5-10.1); CREATININE 0.5 mg/dL (0.55-1.3); POTASSIUM 3.8 mmol/L (3.5-5.1)
[2019-05-21] MEDS: ENALAPRIL MALEATE 10 MG TABLET (FP) PO SCH (09:10)
[2019-05-21] MEDS: POTASSIUM CHLORIDE TABS 10 MEQ TABLET.ER (FP) PO SCH (09:11)
[2019-05-21] MEDS: DIGOXIN 0.125 MG TABLET (FP) PO SCH (09:11)
[2019-05-21] MEDS: FAMOTIDINE 40 MG/5 ML ORAL SUSPENSION PO SCH ×2 (09:11→21:14)
--- NOTE | 2019-05-21 11:25 | PN ---
Progress Note (short form) - Note Progress Note: in bed no complaints Vital Signs Period Temp Pulse Resp BP Sys/[place] Pulse Ox Last 24 Hr 97.8 F-99 F 79-96 18-22 116-131/48-74 93-98 cor-rrr lungs decreased bs at bses abd soft,nt ext +edema and erythema LLE duplex LLE DVT CBC, BMP 05/21/19 06:16 05/21/19 06:16 Microbiology 05/15/19 15:00 Blood - Peripheral Venous Blood Culture - Final NO GROWTH AFTER 5 DAYS INCUBATION 05/15/19 15:10 Blood - Peripheral Venous Blood Culture - Final NO GROWTH AFTER 5 DAYS INCUBATION 05/12/19 08:40 Blood - Peripheral Venous Blood Culture - Final NO GROWTH AFTER 5 DAYS INCUBATION 05/12/19 08:40 Blood - Peripheral Venous Blood Culture - Final NO GROWTH AFTER 5 DAYS INCUBATION 05/12/19 21:10 Urine For Antigen Detection Legionella Antigen - Final 05/12/19 21:10 Urine For Antigen Detection Streptococcus pneumoniae Antigen (M - Final 05/12/19 10:20 Urine - Urine - Catheterized Urine Culture - Final NO GROWTH OBTAINED chest CTA with RUL/RML infiltrate Current Medications Acetaminophen (Tylenol -) 650 mg PO Q4H PRN PRN Reason: PAIN Last Admin: 05/20/19 06:10 Dose: 650 mg Albuterol/Ipratropium (Duoneb -) 1 amp NEB Q6H PRN PRN Reason: SHORTNESS OF BREATH Last Admin: 05/20/19 06:25 Dose: 1 amp Digoxin (Lanoxin -) 0.125 mg PO DAILY [facility] Last Admin: 05/21/19 09:11 Dose: 0.125 mg Diltiazem HCl (Cardizem Cd -) 120 mg PO DAILY [facility] Last Admin: 05/21/19 09:10 Dose: 120 mg Enalapril Maleate (Vasotec -) 20 mg PO DAILY [facility] Last Admin: 05/21/19 09:10 Dose: 20 mg Famotidine (Famotidine) 20 mg PO BID [facility] Last Admin: 05/21/19 09:11 Dose: 20 mg Furosemide (Lasix Injection -) 40 mg IVPUSH BID@0600,1400 [facility] Last Admin: 05/21/19 06:21 Dose: 40 mg Heparin Sodium (Porcine) (Heparin -) 1,000 unit IVPUSH PRN PRN PRN Reason: Heparin Heparin Sodium (Porcine) (Heparin -) 5,000 unit IVPUSH PRN PRN PRN Reason: Heparin Last Admin: 05/21/19 01:23 EDT Dose: 5,000 unit Piperacillin Sod/Tazobactam (Sod 3.375 gm/ Dextrose) 50 mls @ 100 mls/hr IVPB Q8H-IV [facility]; Protocol Last Admin: 05/21/19 09:10 Dose: 100 mls/hr Vancomycin HCl (Vancomycin (Pre-Docked)) 1,000 mg in 250 mls @ 166.667 mls/hr IVPB Q24H [facility]; Protocol Last Admin: 05/20/19 12:12 Dose: 166.667 mls/hr Heparin Sodium (Porcine) 25, (000 unit/ Sodium Chloride) 500 mls @ 20 mls/hr IV TITR [facility]; Protocol Last Admin: 05/21/19 01:23 EDT Dose: 1,150 unit/hr, 23 mls/hr Levothyroxine Sodium (Synthroid -) 25 mcg PO DAILY@0700 [facility] Last Admin: 05/21/19 06:21 Dose: 25 mcg Metoprolol Succinate (Toprol Xl -) 50 mg PO DAILY [facility] Last Admin: 05/21/19 09:10 Dose: 50 mg Ondansetron HCl (Zofran -) 4 mg PO Q8H PRN PRN Reason: NAUSEA AND/OR VOMITING Potassium Chloride (K-Dur -) 40 meq PO DAILY [facility] Last Admin: 05/21/19 09:11 Dose: 40 meq a/p RUL infiltrate- persistent leukocytosis- on day #9 zosyn- no steroids LLE DVT- on heparin, vancomycin day #2 for celllulitis and PNA nares MRSA screen pending recent ct abd/pelvis-no acute process noted chf- on diuretics, has singletary ?need for bronchoscopy if she fails to improve vancomycin trough ordered
[2019-05-21] MEDS: ALBUTEROL SO4 2.5/IPRATROPIUM 0.5 INH SOL 3 ML VIAL.NEB. NEB PRN (11:39)
--- NOTE | 2019-05-21 11:56 | PN ---
Progress Note (short form) - Note Progress Note: PULMONARY AWAKE/ALERT SHIPLEY IN PLACE VSS/AFEBRILE Constitutional: Yes: NAD Eyes: Yes: WNL HENT: Yes: WNL Neck: Yes: WNL Cardiovascular: Yes: Regular Rate and Rhythm, S1, S2 Respiratory: Yes: Diminished at the bases Gastrointestinal: Yes: Normal Bowel Sounds, Soft Extremities: Yes: WNL Edema: Yes Labs/meds/notes/images/micro reviewed: reviewed (1) Change in mental status Code(s): R41.82 - ALTERED MENTAL STATUS, UNSPECIFIED (2) Hypothyroid Code(s): E03.9 - HYPOTHYROIDISM, UNSPECIFIED (3) Lesion of spleen Code(s): D73.9 - DISEASE OF SPLEEN, UNSPECIFIED (4) CAD (coronary artery disease) Code(s): I25.10 - ATHSCL HEART DISEASE OF [place] CORONARY ARTERY W/O ANG PCTRS (5) CHF exacerbation Code(s): I50.9 - HEART FAILURE, UNSPECIFIED (6) Cough Code(s): R05 - COUGH (7) Dementia Code(s): F03.90 - UNSPECIFIED DEMENTIA WITHOUT BEHAVIORAL DISTURBANCE (8) Depression Code(s): F32.9 - MAJOR DEPRESSIVE DISORDER, SINGLE EPISODE, UNSPECIFIED (9) Diverticula of colon Code(s): K57.30 - DVRTCLOS OF LG INT W/O PERFORATION OR ABSCESS W/O BLEEDING (10) Failure to thrive Code(s): [id number] - Qualifiers: Failure to thrive age range: in adult Qualified Code(s): R62.7 - Adult failure to thrive (11) Falling Code(s): W19.XXXA - UNSPECIFIED FALL, INITIAL ENCOUNTER (12) Gait abnormality Code(s): R26.9 - UNSPECIFIED ABNORMALITIES OF GAIT AND MOBILITY (13) Hyperlipidemia Code(s): E78.5 - HYPERLIPIDEMIA, UNSPECIFIED (14) Hypertension Code(s): I10 - ESSENTIAL (PRIMARY) HYPERTENSION (15) Metabolic encephalopathy Code(s): G93.41 - METABOLIC ENCEPHALOPATHY (16) Rheumatoid arthritis Code(s): M06.9 - RHEUMATOID ARTHRITIS, UNSPECIFIED (17) S/P cholecystectomy Code(s): Z90.49 - ACQUIRED ABSENCE OF OTHER SPECIFIED PARTS OF DIGESTIVE TRACT (18) Community acquired pneumonia Code(s): J18.9 - PNEUMONIA, UNSPECIFIED ORGANISM RUL (18) COPD Assessment/Plan ABX per ID O2 as needed BD TX PRN Aspiration precautions Fall precautions smoking cessation Therese ALEMAN MD
[2019-05-21] MEDS: VANCOMYCIN 1 GRAM (PRE-DOCKED) 1,000 MG/250 ML BAG IVPB SCH (12:00)
--- NOTE | 2019-05-21 12:23 | PN ---
Progress Note, Physician Chief Complaint: ASLEEP COMFORTABLE EVENTS AND NOTES REVIEWED - Current Medication List Current Medications: Active Medications Acetaminophen (Tylenol -) 650 mg PO Q4H PRN PRN Reason: PAIN Last Admin: 05/20/19 06:10 Dose: 650 mg Albuterol/Ipratropium (Duoneb -) 1 amp NEB Q6H PRN PRN Reason: SHORTNESS OF BREATH Last Admin: 05/21/19 11:39 Dose: 1 amp Digoxin (Lanoxin -) 0.125 mg PO DAILY [facility] Last Admin: 05/21/19 09:11 Dose: 0.125 mg Diltiazem HCl (Cardizem Cd -) 120 mg PO DAILY [facility] Last Admin: 05/21/19 09:10 Dose: 120 mg Enalapril Maleate (Vasotec -) 20 mg PO DAILY [facility] Last Admin: 05/21/19 09:10 Dose: 20 mg Famotidine (Famotidine) 20 mg PO BID [facility] Last Admin: 05/21/19 09:11 Dose: 20 mg Furosemide (Lasix Injection -) 40 mg IVPUSH BID@0600,1400 [facility] Last Admin: 05/21/19 06:21 Dose: 40 mg Heparin Sodium (Porcine) (Heparin -) 1,000 unit IVPUSH PRN PRN PRN Reason: Heparin Heparin Sodium (Porcine) (Heparin -) 5,000 unit IVPUSH PRN PRN PRN Reason: Heparin Last Admin: 05/21/19 01:23 EDT Dose: 5,000 unit Piperacillin Sod/Tazobactam (Sod 3.375 gm/ Dextrose) 50 mls @ 100 mls/hr IVPB Q8H-IV [facility]; Protocol Last Admin: 05/21/19 09:10 Dose: 100 mls/hr Vancomycin HCl (Vancomycin (Pre-Docked)) 1,000 mg in 250 mls @ 166.667 mls/hr IVPB Q24H [facility]; Protocol Last Admin: 05/20/19 12:12 Dose: 166.667 mls/hr Heparin Sodium (Porcine) 25, (000 unit/ Sodium Chloride) 500 mls @ 20 mls/hr IV TITR [facility]; Protocol Last Admin: 05/21/19 01:23 EDT Dose: 1,150 unit/hr, 23 mls/hr Levothyroxine Sodium (Synthroid -) 25 mcg PO DAILY@0700 [facility] Last Admin: 05/21/19 06:21 Dose: 25 mcg Metoprolol Succinate (Toprol Xl -) 50 mg PO DAILY [facility] Last Admin: 05/21/19 09:10 Dose: 50 mg Ondansetron HCl (Zofran -) 4 mg PO Q8H PRN PRN Reason: NAUSEA AND/OR VOMITING Potassium Chloride (K-Dur -) 40 meq PO DAILY [facility] Last Admin: 05/21/19 09:11 Dose: 40 meq - Objective Vital Signs: Vital Signs Temperature 98.4 F 05/21/19 09:00 Pulse Rate 85 05/21/19 09:11 Respiratory Rate 22 H 05/21/19 09:00 Blood Pressure 126/53 L 05/21/19 09:00 O2 Sat by Pulse Oximetry (%) 98 05/21/19 09:00 Constitutional: Yes: No Distress Cardiovascular: Yes: Pulse Irregular Respiratory: Yes: On Nasal O2 Gastrointestinal: Yes: Soft Genitourinary: Yes: [place] Present Edema: Yes Labs: CBC, BMP 05/21/19 06:16 05/21/19 06:16 INR, PTT INR 1.24 (0.83-1.09) H 05/13/19 07:00 Problem List - Problems (1) Change in mental status Code(s): R41.82 - ALTERED MENTAL STATUS, UNSPECIFIED (2) Community acquired pneumonia Code(s): J18.9 - PNEUMONIA, UNSPECIFIED ORGANISM (3) Edema of left lower extremity Code(s): R60.0 - LOCALIZED EDEMA (4) Hypothyroid Code(s): E03.9 - HYPOTHYROIDISM, UNSPECIFIED (5) PSVT (paroxysmal supraventricular tachycardia) Code(s): I47.1 - SUPRAVENTRICULAR TACHYCARDIA Assessment/Plan IV ABX NEBS/02 SUPPORT PULM/CARDIO EVAL ON TELE MONITORING OOB TO CHAIR /PT DVT PROPHYLAXIS
--- NOTE | 2019-05-21 14:14 | PN ---
Progress Note (short form) - Note Progress Note: PULMONARY EMBOLISM CAN NOT BE RULED OUT ON CTA STARTED HEPARIN DRIP FOR AC PULM/CARDIO FOLLOW UP Problem List - Problems (1) Change in mental status Code(s): R41.82 - ALTERED MENTAL STATUS, UNSPECIFIED (2) Community acquired pneumonia Code(s): J18.9 - PNEUMONIA, UNSPECIFIED ORGANISM (3) Edema of left lower extremity Code(s): R60.0 - LOCALIZED EDEMA (4) Hypothyroid Code(s): E03.9 - HYPOTHYROIDISM, UNSPECIFIED (5) PSVT (paroxysmal supraventricular tachycardia) Code(s): I47.1 - SUPRAVENTRICULAR TACHYCARDIA
[2019-05-22] MEDS ORDERED: DEXTROSE 5%-WATER - 50 ML IVPB ONE ×3 (00:06→18:40)
[2019-05-22] MEDS ORDERED: PIPERACILLIN/TAZOBACTAM 3.375 GM VIAL IVPB ONE ×3 (00:06→18:40)
[2019-05-22] MEDS: PIPERACILLIN/TAZOB 3.375 GM 3.375 GM in DEXTROSE 5%-WATER - 50 ML IVPB SCH ×3 (01:14→18:58)
[2019-05-22] MEDS: ALBUTEROL SO4 2.5/IPRATROPIUM 0.5 INH SOL 3 ML VIAL.NEB. NEB PRN ×2 (02:45→20:57)
[2019-05-22] MEDS: FUROSEMIDE 40 MG/4 ML INJECTABLE VIAL IVPUSH SCH ×2 (06:12→14:45)
[2019-05-22] MEDS: LEVOTHYROXINE NA 25 MCG TABLET (FP) PO SCH (06:12)
[2019-05-22 06:40] LABS: HEMATOCRIT 30.7 % (32.4-45.2); HEMOGLOBIN 10.1 GM/dL (10.7-15.3); MCH 29.2 pg (25.7-33.7); MEAN CELL VOLUME 88.4 fl (80-96); PLATELET COUNT 433 K/MM3 (134-434); RBC 3.47 M/mm3 (3.60-5.2); RDW 21.4 % (11.6-15.6); WHITE BLOOD COUNT 12.8 K/mm3 (4.0-10.0)
[2019-05-22] MEDS: FAMOTIDINE 40 MG/5 ML ORAL SUSPENSION PO SCH ×2 (09:00→21:33)
[2019-05-22] MEDS: POTASSIUM CHLORIDE TABS 10 MEQ TABLET.ER (FP) PO SCH (09:58)
[2019-05-22] MEDS: DIGOXIN 0.125 MG TABLET (FP) PO SCH (09:58)
[2019-05-22] MEDS: ENALAPRIL MALEATE 10 MG TABLET (FP) PO SCH (09:59)
--- NOTE | 2019-05-22 10:36 | PN ---
Progress Note, Physician Chief Complaint: fall History of Present Illness: c/o malaise--cannot specify. admits to sob "and everything else". but denies palp, cp leg swollen ex cigs - Current Medication List Current Medications: Active Medications Acetaminophen (Tylenol -) 650 mg PO Q4H PRN PRN Reason: PAIN Last Admin: 05/20/19 06:10 Dose: 650 mg Albuterol/Ipratropium (Duoneb -) 1 amp NEB Q6H PRN PRN Reason: SHORTNESS OF BREATH Last Admin: 05/22/19 02:45 Dose: 1 amp Digoxin (Lanoxin -) 0.125 mg PO DAILY [facility] Last Admin: 05/22/19 09:58 Dose: 0.125 mg Diltiazem HCl (Cardizem Cd -) 120 mg PO DAILY [facility] Last Admin: 05/22/19 09:58 Dose: 120 mg Enalapril Maleate (Vasotec -) 20 mg PO DAILY [facility] Last Admin: 05/22/19 09:59 Dose: 20 mg Famotidine (Famotidine) 20 mg PO BID [facility] Last Admin: 05/22/19 09:00 Dose: 20 mg Furosemide (Lasix Injection -) 40 mg IVPUSH BID@0600,1400 [facility] Last Admin: 05/22/19 06:12 Dose: 40 mg Heparin Sodium (Porcine) (Heparin -) 1,000 unit IVPUSH PRN PRN PRN Reason: Heparin Heparin Sodium (Porcine) (Heparin -) 5,000 unit IVPUSH PRN PRN PRN Reason: Heparin Last Admin: 05/21/19 01:23 EDT Dose: 5,000 unit Piperacillin Sod/Tazobactam (Sod 3.375 gm/ Dextrose) 50 mls @ 100 mls/hr IVPB Q8H-IV [facility]; Protocol Last Admin: 05/22/19 09:58 Dose: 100 mls/hr Vancomycin HCl (Vancomycin (Pre-Docked)) 1,000 mg in 250 mls @ 166.667 mls/hr IVPB Q24H [facility]; Protocol Last Admin: 05/21/19 12:00 Dose: 166.667 mls/hr Heparin Sodium (Porcine) 25, (000 unit/ Sodium Chloride) 500 mls @ 20 mls/hr IV TITR [facility]; Protocol Last Admin: 05/21/19 17:58 Dose: 1,150 unit/hr, 23 mls/hr Levothyroxine Sodium (Synthroid -) 25 mcg PO DAILY@0700 [facility] Last Admin: 05/22/19 06:12 Dose: 25 mcg Metoprolol Succinate (Toprol Xl -) 50 mg PO DAILY [facility] Last Admin: 05/22/19 09:59 Dose: 50 mg Ondansetron HCl (Zofran -) 4 mg PO Q8H PRN PRN Reason: NAUSEA AND/OR VOMITING Potassium Chloride (K-Dur -) 40 meq PO DAILY [facility] Last Admin: 05/22/19 09:58 Dose: 40 meq - Objective Vital Signs: Vital Signs Temperature 98.5 F 05/22/19 05:50 Pulse Rate 88 05/22/19 09:58 Respiratory Rate 21 H 05/22/19 05:50 Blood Pressure 114/43 L 05/22/19 05:50 O2 Sat by Pulse Oximetry (%) 97 05/21/19 21:00 Constitutional: Yes: No Distress, Calm Eyes: No: Sclera Icterus HENT: No: Nasal Congestion Cardiovascular: Yes: Regular Rate and Rhythm, JVD (possible (accessory muscle ( SCM) use confounds)), S1, S2, Other (PMI non diplaced). No: Gallop, Murmur Respiratory: Yes: CTA Bilaterally (decr diffusely). No: Accessory Muscle Use, Rales, Wheezes Gastrointestinal: Yes: Normal Bowel Sounds, Soft. No: Tenderness Musculoskeletal: Yes: Other (No kyphosis) Extremities: No: Cold, Cyanosis Edema: Yes (2+ L ankle, trace R) Integumentary: No: Jaundice Neurological: Yes: Alert. No: Seizure Psychiatric: No: Agitated Labs: CBC, BMP 05/22/19 05:37 05/21/19 06:16 INR, PTT INR 1.24 (0.83-1.09) H 05/13/19 07:00 Assessment/Plan Echo 04/2019: mild LVH. grossly nl LVEF (50%). grossly nl RV. mild-mod AI. tele: NSR/MAT HRs 70s-90s. no PSVT. + artifact. DVT: -+ DVT of LLE here, CTA no central PE, distal branches not well seen -started on UFH to watch for signs of bleeding and monitor counts--cont for now -? 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 orthostasis -was in svt in ER and also septic with PNA--? contributed to unstable hemodynamics at home -EF normal, low risk for V arrhythmia -monitor tele -no signs of ACS sepsis, pna, lactic acidosis: -abx per ID -sx's stable h/o tachycardia-induced CMP, edema, ?acute HFPEF -lvef sev reduced 02/2019, in setting of uncontrolled MAT on presentation of ? prolonged duratoin (arrhythmia is asymptomatic, pt had not had recent outpt followup) -EF normalized here on 05/06 echo -rate control as doing. -ongoing SOB ? sec to large PNA. diuresis started for ++ edema, now with unilateral edema likely sec to DVT. 05/22 possible JVD noted on exam. I/Os variable the past 2 days. wt declining overall 164-->156. labs stable. try incr lasix 40 iv bid to 80 iv bid--monitor wts and UOP (sing[place]), labs trend Multifocal atrial tach (MAT), PSVT (short RP): -presented in SVT (? AVNRT), resolved in ER--ongoing bursts on tele -predominant rhythm is MAT which is mildly rapid -home med adherence suboptimal (dementia, frequently refuses meds from and [employer])--? better of late -no more PSVT on tele since diltiazem 120 qd added: cont dilt, metopr 50 qd, digoxin (level good). -would not be a candidate for 1c use (flecainide) given prior low EF (and hi risk for CAD in future). could use amio but carries pulm toxicity risks given extensive copd. could consider AVN ablation with PPM if cannot adequately control HRs with tolerable doses of AVN blockers. -again disc'd med adherence importance with pt, in presence of family (done repeatedly in office as well), to avoid invasive procedures HTN: -target <150/90 given orthostasis risk -meds adjusted here to incr AVN blockers -BP improved once enalapril resumed--at goals but often soft--change enalapril 20 qd to 5 bid, titrate up as needed -iv diuresis started. Possible CAD: -prior mibi 2012 reported low-risk area of (septal) ischemia and has been managed medically with no angina sx's -pt with extensive atherosclerotic aorta vascular disease -cont home bb, statin regimen needs clarification from office records. -ASA held in recent past when developed NSAID-related PUD (hi risk for recurrent bleeding) -intermediate trop elevation, possibly demand from sepsis/svt. does not appear to be acs. Thoracic and abdominal aorta aneurysms: -known ascending aorta aneurysm (4.1 cm), descending aorta aneurysm (5.2 cm), stable on recent ct 03/2019 -4.4 cm AAA, enlarged from 3.9 in 02/2018 -bp control, BB, statin as doing -would be high risk (maybe prohibitive) for open repair in any case (ascending aorta not amenable to endovascular approach) COPD, pulm HTN: -marked emphys changes on CT chest -dilated PA c/w pulm HTN -has refused home O2 repeatedly -cont suppl O2 here as doing h/o Peptic ulcer disease (NSAIDS)
[2019-05-22] MEDS: HEPARIN NA (PORCINE) 5,000 UNITS/ML 1ML VIAL IVPUSH PRN (10:55)
[2019-05-22] MEDS: HEPARIN - 25,000 UNIT in SODIUM CHLORIDE 495 ML IV SCH ×2 (10:56→18:59)
--- NOTE | 2019-05-22 11:17 | PN ---
Progress Note, Physician History of Present Illness: PULMONARY ALERT,STILL C/O SOB WITH EXERTION,-CP,_ COUGH - Current Medication List Current Medications: Active Medications Acetaminophen (Tylenol -) 650 mg PO Q4H PRN PRN Reason: PAIN Last Admin: 05/20/19 06:10 Dose: 650 mg Albuterol/Ipratropium (Duoneb -) 1 amp NEB Q6H PRN PRN Reason: SHORTNESS OF BREATH Last Admin: 05/22/19 02:45 Dose: 1 amp Digoxin (Lanoxin -) 0.125 mg PO DAILY [facility] Last Admin: 05/22/19 09:58 Dose: 0.125 mg Diltiazem HCl (Cardizem Cd -) 120 mg PO DAILY [facility] Last Admin: 05/22/19 09:58 Dose: 120 mg Enalapril Maleate (Vasotec -) 5 mg PO BID [facility] Famotidine (Famotidine) 20 mg PO BID [facility] Last Admin: 05/22/19 09:00 Dose: 20 mg Furosemide (Lasix Injection -) 40 mg IVPUSH BID@0600,1400 [facility] Last Admin: 05/22/19 06:12 Dose: 40 mg Heparin Sodium (Porcine) (Heparin -) 1,000 unit IVPUSH PRN PRN PRN Reason: Heparin Last Admin: 05/22/19 10:55 Dose: 1,000 unit Heparin Sodium (Porcine) (Heparin -) 5,000 unit IVPUSH PRN PRN PRN Reason: Heparin Last Admin: 05/21/19 01:23 EDT Dose: 5,000 unit Piperacillin Sod/Tazobactam (Sod 3.375 gm/ Dextrose) 50 mls @ 100 mls/hr IVPB Q8H-IV [facility]; Protocol Last Admin: 05/22/19 09:58 Dose: 100 mls/hr Vancomycin HCl (Vancomycin (Pre-Docked)) 1,000 mg in 250 mls @ 166.667 mls/hr IVPB Q24H [facility]; Protocol Last Admin: 05/21/19 12:00 Dose: 166.667 mls/hr Heparin Sodium (Porcine) 25, (000 unit/ Sodium Chloride) 500 mls @ 20 mls/hr IV TITR [facility]; Protocol Last Admin: 05/22/19 10:56 Dose: 1,250 unit/hr, 25 mls/hr Levothyroxine Sodium (Synthroid -) 25 mcg PO DAILY@0700 [facility] Last Admin: 05/22/19 06:12 Dose: 25 mcg Metoprolol Succinate (Toprol Xl -) 50 mg PO DAILY [facility] Last Admin: 05/22/19 09:59 Dose: 50 mg Ondansetron HCl (Zofran -) 4 mg PO Q8H PRN PRN Reason: NAUSEA AND/OR VOMITING Potassium Chloride (K-Dur -) 40 meq PO DAILY [facility] Last Admin: 05/22/19 09:58 Dose: 40 meq - Objective Vital Signs: Vital Signs Temperature 98.2 F 05/22/19 10:00 Pulse Rate 88 05/22/19 10:00 Respiratory Rate 20 05/22/19 10:00 Blood Pressure 110/43 L 05/22/19 10:00 O2 Sat by Pulse Oximetry (%) 97 05/21/19 21:00 Constitutional: Yes: Well Nourished, Calm Eyes: Yes: WNL HENT: Yes: WNL Neck: Yes: WNL Cardiovascular: Yes: Regular Rate and Rhythm, S1, S2 Respiratory: Yes: Rhonchi (FEW RHONCHI) Gastrointestinal: Yes: Normal Bowel Sounds, Soft Extremities: Yes: WNL Edema: Yes Labs: CBC, BMP 05/22/19 05:37 Assessment/Plan Problem List - Problems (1) Change in mental status Code(s): R41.82 - ALTERED MENTAL STATUS, UNSPECIFIED (2) Hypothyroid Code(s): E03.9 - HYPOTHYROIDISM, UNSPECIFIED (3) Lesion of spleen Code(s): D73.9 - DISEASE OF SPLEEN, UNSPECIFIED (4) CAD (coronary artery disease) Code(s): I25.10 - ATHSCL HEART DISEASE OF [place] CORONARY ARTERY W/O ANG PCTRS (5) CHF exacerbation Code(s): I50.9 - HEART FAILURE, UNSPECIFIED (6) Cough Code(s): R05 - COUGH (7) Dementia Code(s): F03.90 - UNSPECIFIED DEMENTIA WITHOUT BEHAVIORAL DISTURBANCE (8) Depression Code(s): F32.9 - MAJOR DEPRESSIVE DISORDER, SINGLE EPISODE, UNSPECIFIED (9) Diverticula of colon Code(s): K57.30 - DVRTCLOS OF LG INT W/O PERFORATION OR ABSCESS W/O BLEEDING (10) Failure to thrive Code(s): [id number] - Qualifiers: Failure to thrive age range: in adult Qualified Code(s): R62.7 - Adult failure to thrive (11) Falling Code(s): W19.XXXA - UNSPECIFIED FALL, INITIAL ENCOUNTER (12) Gait abnormality Code(s): R26.9 - UNSPECIFIED ABNORMALITIES OF GAIT AND MOBILITY (13) Hyperlipidemia Code(s): E78.5 - HYPERLIPIDEMIA, UNSPECIFIED (14) Hypertension Code(s): I10 - ESSENTIAL (PRIMARY) HYPERTENSION (15) Metabolic encephalopathy Code(s): G93.41 - METABOLIC ENCEPHALOPATHY (16) Rheumatoid arthritis Code(s): M06.9 - RHEUMATOID ARTHRITIS, UNSPECIFIED (17) S/P cholecystectomy Code(s): Z90.49 - ACQUIRED ABSENCE OF OTHER SPECIFIED PARTS OF DIGESTIVE TRACT (18) Community acquired pneumonia Code(s): J18.9 - PNEUMONIA, UNSPECIFIED ORGANISM RUL 19 AAA 20 COPD Assessment/Plan ABX per ID O2 as needed INHALED BRONCHODILATORS NIPPV support as needed for increased WOB Aspiration precautions Fall precautions f/u chest x-rays DR LOVELACE
[2019-05-22] MEDS: VANCOMYCIN 1 GRAM (PRE-DOCKED) 1,000 MG/250 ML BAG IVPB SCH (13:02)
--- NOTE | 2019-05-22 13:10 | PN ---
Progress Note, Physician Chief Complaint: patient sitting hunched over does not feel like eating started on iv heparin for DVT and iv vanco for cellultis of LLE - Current Medication List Current Medications: Active Medications Acetaminophen (Tylenol -) 650 mg PO Q4H PRN PRN Reason: PAIN Last Admin: 05/20/19 06:10 Dose: 650 mg Albuterol/Ipratropium (Duoneb -) 1 amp NEB Q6H PRN PRN Reason: SHORTNESS OF BREATH Last Admin: 05/22/19 02:45 Dose: 1 amp Digoxin (Lanoxin -) 0.125 mg PO DAILY [facility] Last Admin: 05/22/19 09:58 Dose: 0.125 mg Diltiazem HCl (Cardizem Cd -) 120 mg PO DAILY [facility] Last Admin: 05/22/19 09:58 Dose: 120 mg Enalapril Maleate (Vasotec -) 5 mg PO BID [facility] Famotidine (Famotidine) 20 mg PO BID [facility] Last Admin: 05/22/19 09:00 Dose: 20 mg Furosemide (Lasix Injection -) 80 mg IVPUSH BID@0600,1400 [facility] Heparin Sodium (Porcine) (Heparin -) 1,000 unit IVPUSH PRN PRN PRN Reason: Heparin Last Admin: 05/22/19 10:55 Dose: 1,000 unit Heparin Sodium (Porcine) (Heparin -) 5,000 unit IVPUSH PRN PRN PRN Reason: Heparin Last Admin: 05/21/19 01:23 EDT Dose: 5,000 unit Piperacillin Sod/Tazobactam (Sod 3.375 gm/ Dextrose) 50 mls @ 100 mls/hr IVPB Q8H-IV [facility]; Protocol Last Admin: 05/22/19 09:58 Dose: 100 mls/hr Vancomycin HCl (Vancomycin (Pre-Docked)) 1,000 mg in 250 mls @ 166.667 mls/hr IVPB Q24H [facility]; Protocol Last Admin: 05/22/19 13:02 Dose: 166.667 mls/hr Heparin Sodium (Porcine) 25, (000 unit/ Sodium Chloride) 500 mls @ 20 mls/hr IV TITR [facility]; Protocol Last Admin: 05/22/19 10:56 Dose: 1,250 unit/hr, 25 mls/hr Levothyroxine Sodium (Synthroid -) 25 mcg PO DAILY@0700 [facility] Last Admin: 05/22/19 06:12 Dose: 25 mcg Metoprolol Succinate (Toprol Xl -) 50 mg PO DAILY [facility] Last Admin: 05/22/19 09:59 Dose: 50 mg Ondansetron HCl (Zofran -) 4 mg PO Q8H PRN PRN Reason: NAUSEA AND/OR VOMITING Potassium Chloride (K-Dur -) 40 meq PO DAILY [facility] Last Admin: 05/22/19 09:58 Dose: 40 meq - Objective Vital Signs: Vital Signs Temperature 98.2 F 05/22/19 10:00 Pulse Rate 88 05/22/19 10:00 Respiratory Rate 20 05/22/19 10:00 Blood Pressure 110/43 L 05/22/19 10:00 O2 Sat by Pulse Oximetry (%) 97 05/21/19 21:00 Constitutional: Yes: Calm Cardiovascular: Yes: Regular Rate and Rhythm, S1, S2 Respiratory: Yes: Diminished Gastrointestinal: Yes: Normal Bowel Sounds, Soft Extremities: Yes: Erythema, Other (edema of LLE) Edema: Yes Neurological: Yes: Alert Labs: CBC, BMP 05/22/19 05:37 05/21/19 06:16 INR, PTT INR 1.24 (0.83-1.09) H 05/13/19 07:00 Problem List - Problems (1) Change in mental status Assessment/Plan: toxic metabolic encephalopathy secondary ro PNA=right sided leukocytosis and low grade temp lactic acidosis resolved on iv zosyn Microbiology 05/12/19 21:10 Urine For Antigen Detection Legionella Antigen - Final 05/12/19 21:10 Urine For Antigen Detection Streptococcus pneumoniae Antigen (M - Final 05/12/19 10:20 Urine - Urine - Catheterized Urine Culture - Final NO GROWTH OBTAINED 05/12/19 08:40 Blood - Peripheral Venous Blood Culture - Preliminary NO GROWTH OBTAINED AFTER 72 HOURS, INCUBATION TO CONTINUE FOR 2 DAYS. 05/12/19 08:40 Blood - Peripheral Venous Blood Culture - Preliminary NO GROWTH OBTAINED AFTER 72 HOURS, INCUBATION TO CONTINUE FOR 2 DAYS. Code(s): R41.82 - ALTERED MENTAL STATUS, UNSPECIFIED (2) Lesion of spleen Assessment/Plan: appeciate heme evaluation Code(s): D73.9 - DISEASE OF SPLEEN, UNSPECIFIED (3) Hypothyroid Assessment/Plan: tsh synthroid Code(s): E03.9 - HYPOTHYROIDISM, UNSPECIFIED (4) CAD (coronary artery disease) Assessment/Plan: ob BB no aspirin bc of previuos PUD Code(s): I25.10 - ATHSCL HEART DISEASE OF [place] CORONARY ARTERY W/O ANG PCTRS (5) Abdominal pain Assessment/Plan: recent ct scan no acute pathology noted will give zantac bid no loose bm Code(s): R10.9 - UNSPECIFIED ABDOMINAL PAIN Qualifiers: (6) Hypertension Assessment/Plan: enealpril Code(s): I10 - ESSENTIAL (PRIMARY) HYPERTENSION (7) PSVT (paroxysmal supraventricular tachycardia) Assessment/Plan: controlled on digxin and diltiazem and meotprolol Code(s): I47.1 - SUPRAVENTRICULAR TACHYCARDIA (8) CHF exacerbation Assessment/Plan: iv lasix bid 8o mg bid on enalapril and Code(s): I50.9 - HEART FAILURE, UNSPECIFIED (9) Edema of left lower extremity Assessment/Plan: LLE doppler positive for DVT on iv heparin patient with limited mobilty will get heme to consult on patient regarding duration of starting NOAC started on vancomycin for cellulitis of LLE Code(s): R60.0 - LOCALIZED EDEMA (10) Cellulitis Assessment/Plan: iv vancomycin for LLE cellulitis MRSA screen pending Code(s): L03.90 - CELLULITIS, UNSPECIFIED
--- NOTE | 2019-05-22 15:05 | EKG ---
Test Reason : Blood Pressure : / mmHG Vent. Rate : 089 BPM Atrial Rate : 089 BPM P-R Int : 212 ms QRS Dur : 076 ms QT Int : 318 ms P-R-T Axes : -25 014 130 degrees QTc Int : 386 ms SINUS RHYTHM WITH 1ST DEGREE A-V BLOCK ANTERIOR INFARCT , AGE UNDETERMINED ABNORMAL ECG WHEN COMPARED WITH ECG OF 15-MAY-2019 22:50, SINUS RHYTHM HAS REPLACED ATRIAL FIBRILLATION QT HAS SHORTENED T WAVE VARIATION Confirmed by KAREN LOJA, JERILYN ([id number]) on 05/22/2019 3:05:20 PM Referred By: AUDREY SINGH Confirmed By:JERILYN JONES MD
--- NOTE | 2019-05-22 15:23 | PN ---
Progress Note, Physician History of Present Illness: AWAKE, ALERT SEATED IN BED OFFERS NO COMPLAINTS DENIES DYSPNEA/ COUGH NO C/O LEG PAIN AFEBRILE WBC IMPROVED LEGIONELLA AG (-) - Current Medication List Current Medications: Active Medications Acetaminophen (Tylenol -) 650 mg PO Q4H PRN PRN Reason: PAIN Last Admin: 05/20/19 06:10 Dose: 650 mg Albuterol/Ipratropium (Duoneb -) 1 amp NEB Q6H PRN PRN Reason: SHORTNESS OF BREATH Last Admin: 05/22/19 02:45 Dose: 1 amp Digoxin (Lanoxin -) 0.125 mg PO DAILY [facility] Last Admin: 05/22/19 09:58 Dose: 0.125 mg Diltiazem HCl (Cardizem Cd -) 120 mg PO DAILY [facility] Last Admin: 05/22/19 09:58 Dose: 120 mg Enalapril Maleate (Vasotec -) 5 mg PO BID [facility] Famotidine (Famotidine) 20 mg PO BID [facility] Last Admin: 05/22/19 09:00 Dose: 20 mg Furosemide (Lasix Injection -) 80 mg IVPUSH BID@0600,1400 [facility] Last Admin: 05/22/19 14:45 Dose: 80 mg Heparin Sodium (Porcine) (Heparin -) 1,000 unit IVPUSH PRN PRN PRN Reason: Heparin Last Admin: 05/22/19 10:55 Dose: 1,000 unit Heparin Sodium (Porcine) (Heparin -) 5,000 unit IVPUSH PRN PRN PRN Reason: Heparin Last Admin: 05/21/19 01:23 EDT Dose: 5,000 unit Piperacillin Sod/Tazobactam (Sod 3.375 gm/ Dextrose) 50 mls @ 100 mls/hr IVPB Q8H-IV [facility]; Protocol Last Admin: 05/22/19 09:58 Dose: 100 mls/hr Vancomycin HCl (Vancomycin (Pre-Docked)) 1,000 mg in 250 mls @ 166.667 mls/hr IVPB Q24H [facility]; Protocol Last Admin: 05/22/19 13:02 Dose: 166.667 mls/hr Heparin Sodium (Porcine) 25, (000 unit/ Sodium Chloride) 500 mls @ 20 mls/hr IV TITR [facility]; Protocol Last Admin: 05/22/19 10:56 Dose: 1,250 unit/hr, 25 mls/hr Levothyroxine Sodium (Synthroid -) 25 mcg PO DAILY@0700 [facility] Last Admin: 05/22/19 06:12 Dose: 25 mcg Metoprolol Succinate (Toprol Xl -) 50 mg PO DAILY [facility] Last Admin: 05/22/19 09:59 Dose: 50 mg Ondansetron HCl (Zofran -) 4 mg PO Q8H PRN PRN Reason: NAUSEA AND/OR VOMITING Potassium Chloride (K-Dur -) 40 meq PO DAILY [facility] Last Admin: 05/22/19 09:58 Dose: 40 meq - Objective Vital Signs: Vital Signs Temperature 99.4 F 05/22/19 14:00 Pulse Rate 90 05/22/19 14:00 Respiratory Rate 20 05/22/19 14:00 Blood Pressure 139/54 L 05/22/19 14:00 O2 Sat by Pulse Oximetry (%) 97 05/21/19 21:00 Constitutional: Yes: Obese Cardiovascular: Yes: Regular Rate and Rhythm, S1, S2 Respiratory: Yes: Diminished Gastrointestinal: Yes: Normal Bowel Sounds, Soft. No: Tenderness Extremities: Yes: Other (+ L> R LE EDEMA; + ERYTHEMA/ WARMTH L LE) Edema: Yes Labs: CBC, BMP 05/22/19 05:37 05/21/19 06:16 INR, PTT INR 1.24 (0.83-1.09) H 05/13/19 07:00 Assessment/Plan PNEUMONIA CELLULITIS / DVT L LE LEUKOCYTOSIS IMPROVED LACTIC ACIDOSIS RESOLVED TOXIC METABOLIC ENCEPHALOPATHY / OBS CONTINUE ZOSYN/ VANCOMYCIN
[2019-05-22] MEDS: ENALAPRIL MALEATE 5 MG TABLET (FP) PO SCH (21:33)
[2019-05-23] MEDS ORDERED: PIPERACILLIN/TAZOBACTAM 3.375 GM VIAL IVPB ONE ×3 (01:02→18:20)
[2019-05-23] MEDS ORDERED: DEXTROSE 5%-WATER - 50 ML IVPB ONE ×3 (01:03→18:20)
[2019-05-23] MEDS: PIPERACILLIN/TAZOB 3.375 GM 3.375 GM in DEXTROSE 5%-WATER - 50 ML IVPB SCH ×3 (01:23→18:28)
[2019-05-23 06:30] LABS: HEMATOCRIT 30.7 % (32.4-45.2); HEMOGLOBIN 10.1 GM/dL (10.7-15.3); MCH 28.8 pg (25.7-33.7); MEAN CELL VOLUME 87.4 fl (80-96); MEAN PLT VOLUME 6.9 fl (7.5-11.1); PLATELET COUNT 459 K/MM3 (134-434); RBC 3.51 M/mm3 (3.60-5.2); RDW 20.9 % (11.6-15.6); WHITE BLOOD COUNT 12.1 K/mm3 (4.0-10.0)
[2019-05-23] MEDS: LEVOTHYROXINE NA 25 MCG TABLET (FP) PO SCH (06:32)
[2019-05-23] MEDS: FUROSEMIDE 40 MG/4 ML INJECTABLE VIAL IVPUSH SCH ×3 (06:33→23:04)
[2019-05-23 07:06] LABS: BLOOD UREA NITROGEN 17.4 mg/dL (7-18); CALCIUM 8.1 mg/dL (8.5-10.1); CREATININE 1.3 mg/dL (0.55-1.3); POTASSIUM 3.4 mmol/L (3.5-5.1)
--- NOTE | 2019-05-23 08:35 | PN ---
Progress Note, Physician - Current Medication List Current Medications: Active Medications Acetaminophen (Tylenol -) 650 mg PO Q4H PRN PRN Reason: PAIN Last Admin: 05/20/19 06:10 Dose: 650 mg Albuterol/Ipratropium (Duoneb -) 1 amp NEB Q6H PRN PRN Reason: SHORTNESS OF BREATH Last Admin: 05/22/19 20:57 Dose: 1 amp Digoxin (Lanoxin -) 0.125 mg PO DAILY [facility] Last Admin: 05/22/19 09:58 Dose: 0.125 mg Diltiazem HCl (Cardizem Cd -) 120 mg PO DAILY [facility] Last Admin: 05/22/19 09:58 Dose: 120 mg Enalapril Maleate (Vasotec -) 5 mg PO BID [facility] Last Admin: 05/22/19 21:33 Dose: 5 mg Famotidine (Famotidine) 20 mg PO BID [facility] Last Admin: 05/22/19 21:33 Dose: 20 mg Furosemide (Lasix Injection -) 80 mg IVPUSH BID@0600,1400 [facility] Last Admin: 05/23/19 06:33 Dose: 80 mg Heparin Sodium (Porcine) (Heparin -) 1,000 unit IVPUSH PRN PRN PRN Reason: Heparin Last Admin: 05/22/19 10:55 Dose: 1,000 unit Heparin Sodium (Porcine) (Heparin -) 5,000 unit IVPUSH PRN PRN PRN Reason: Heparin Last Admin: 05/21/19 01:23 EDT Dose: 5,000 unit Piperacillin Sod/Tazobactam (Sod 3.375 gm/ Dextrose) 50 mls @ 100 mls/hr IVPB Q8H-IV [facility]; Protocol Last Admin: 05/23/19 01:23 Dose: 100 mls/hr Vancomycin HCl (Vancomycin (Pre-Docked)) 1,000 mg in 250 mls @ 166.667 mls/hr IVPB Q24H [facility]; Protocol Last Admin: 05/22/19 13:02 Dose: 166.667 mls/hr Heparin Sodium (Porcine) 25, (000 unit/ Sodium Chloride) 500 mls @ 20 mls/hr IV TITR [facility]; Protocol Last Admin: 05/22/19 18:59 Dose: 1,250 unit/hr, 25 mls/hr Levothyroxine Sodium (Synthroid -) 25 mcg PO DAILY@0700 [facility] Last Admin: 05/23/19 06:32 Dose: 25 mcg Metoprolol Succinate (Toprol Xl -) 50 mg PO DAILY [facility] Last Admin: 05/22/19 09:59 Dose: 50 mg Ondansetron HCl (Zofran -) 4 mg PO Q8H PRN PRN Reason: NAUSEA AND/OR VOMITING Potassium Chloride (K-Dur -) 40 meq PO DAILY [facility] Last Admin: 05/22/19 09:58 Dose: 40 meq - Objective Vital Signs: Vital Signs Temperature 98.6 F 05/23/19 06:00 Pulse Rate 85 05/23/19 06:00 Respiratory Rate 20 05/23/19 06:00 Blood Pressure 117/62 05/23/19 06:00 O2 Sat by Pulse Oximetry (%) 94 L 05/22/19 21:00 Cardiovascular: Yes: S1, S2 Respiratory: Yes: Regular, CTA Bilaterally Gastrointestinal: Yes: Normal Bowel Sounds, Soft Extremities: Yes: Calf Tenderness, Erythema Edema: Yes Labs: CBC, BMP 05/23/19 05:43 05/23/19 05:43 INR, PTT INR 1.24 (0.83-1.09) H 05/13/19 07:00 Assessment/Plan - Problems (1) Change in mental status Assessment/Plan: toxic metabolic encephalopathy secondary ro PNA=right sided leukocytosis and low grade temp lactic acidosis resolved on iv zosyn and vanco Microbiology 05/12/19 21:10 Urine For Antigen Detection Legionella Antigen - Final 05/12/19 21:10 Urine For Antigen Detection Streptococcus pneumoniae Antigen (M - Final 05/12/19 10:20 Urine - Urine - Catheterized Urine Culture - Final NO GROWTH OBTAINED 05/12/19 08:40 Blood - Peripheral Venous Blood Culture - Preliminary NO GROWTH OBTAINED AFTER 72 HOURS, INCUBATION TO CONTINUE FOR 2 DAYS. 05/12/19 08:40 Blood - Peripheral Venous Blood Culture - Preliminary NO GROWTH OBTAINED AFTER 72 HOURS, INCUBATION TO CONTINUE FOR 2 DAYS. Code(s): R41.82 - ALTERED MENTAL STATUS, UNSPECIFIED (2) Lesion of spleen Assessment/Plan: appeciate heme evaluation Code(s): D73.9 - DISEASE OF SPLEEN, UNSPECIFIED (3) Hypothyroid Assessment/Plan: tsh synthroid Code(s): E03.9 - HYPOTHYROIDISM, UNSPECIFIED (4) CAD (coronary artery disease) Assessment/Plan: ob BB no aspirin bc of previuos PUD Code(s): I25.10 - ATHSCL HEART DISEASE OF [place] CORONARY ARTERY W/O ANG PCTRS (5) Abdominal pain Assessment/Plan: recent ct scan no acute pathology noted will give zantac bid no loose bm Code(s): R10.9 - UNSPECIFIED ABDOMINAL PAIN Qualifiers: (6) Hypertension Assessment/Plan: enalapril Code(s): I10 - ESSENTIAL (PRIMARY) HYPERTENSION (7) PSVT (paroxysmal supraventricular tachycardia) Assessment/Plan: controlled on digxin and diltiazem and meotprolol Code(s): I47.1 - SUPRAVENTRICULAR TACHYCARDIA (8) CHF exacerbation Assessment/Plan: iv lasix bid 8o mg bid add albumin on enalapril and Code(s): I50.9 - HEART FAILURE, UNSPECIFIED (9) Edema of left lower extremity Assessment/Plan: LLE doppler positive for DVT on iv heparin patient with limited mobilty will get heme to consult on patient regarding duration of starting NOAC started on vancomycin for cellulitis of LLE add albumin Code(s): R60.0 - LOCALIZED EDEMA (10) Cellulitis Assessment/Plan: iv vancomycin for LLE cellulitis MRSA screen pending Code(s): L03.90 - CELLULITIS, UNSPECIFIED
--- NOTE | 2019-05-23 10:26 | PN ---
Progress Note, Physician History of Present Illness: pulmonary alert,less dyspneic on nasal o2 - Current Medication List Current Medications: Active Medications Acetaminophen (Tylenol -) 650 mg PO Q4H PRN PRN Reason: PAIN Last Admin: 05/20/19 06:10 Dose: 650 mg Albumin Human (Albumin Human 25%) 12.5 gm IVPB BID [facility] Stop: 05/25/19 22:01 Albuterol/Ipratropium (Duoneb -) 1 amp NEB Q6H PRN PRN Reason: SHORTNESS OF BREATH Last Admin: 05/22/19 20:57 Dose: 1 amp Digoxin (Lanoxin -) 0.125 mg PO DAILY [facility] Last Admin: 05/22/19 09:58 Dose: 0.125 mg Diltiazem HCl (Cardizem Cd -) 120 mg PO DAILY [facility] Last Admin: 05/22/19 09:58 Dose: 120 mg Enalapril Maleate (Vasotec -) 5 mg PO BID [facility] Last Admin: 05/22/19 21:33 Dose: 5 mg Famotidine (Famotidine) 20 mg PO BID [facility] Last Admin: 05/22/19 21:33 Dose: 20 mg Furosemide (Lasix Injection -) 80 mg IVPUSH BID@1100,2300 [facility] Stop: 05/25/19 23:01 Heparin Sodium (Porcine) (Heparin -) 1,000 unit IVPUSH PRN PRN PRN Reason: Heparin Last Admin: 05/22/19 10:55 Dose: 1,000 unit Heparin Sodium (Porcine) (Heparin -) 5,000 unit IVPUSH PRN PRN PRN Reason: Heparin Last Admin: 05/21/19 01:23 EDT Dose: 5,000 unit Piperacillin Sod/Tazobactam (Sod 3.375 gm/ Dextrose) 50 mls @ 100 mls/hr IVPB Q8H-IV [facility]; Protocol Last Admin: 05/23/19 01:23 Dose: 100 mls/hr Vancomycin HCl (Vancomycin (Pre-Docked)) 1,000 mg in 250 mls @ 166.667 mls/hr IVPB Q24H [facility]; Protocol Last Admin: 05/22/19 13:02 Dose: 166.667 mls/hr Heparin Sodium (Porcine) 25, (000 unit/ Sodium Chloride) 500 mls @ 20 mls/hr IV TITR [facility]; Protocol Last Admin: 05/22/19 18:59 Dose: 1,250 unit/hr, 25 mls/hr Potassium Chloride (Potassium Chloride 10 Meq Premix Ivpb -) 10 meq in 100 mls @ 100 mls/hr IVPB Q60M [facility] Stop: 05/23/19 11:59 Levothyroxine Sodium (Synthroid -) 25 mcg PO DAILY@0700 [facility] Last Admin: 05/23/19 06:32 Dose: 25 mcg Metoprolol Succinate (Toprol Xl -) 50 mg PO DAILY [facility] Last Admin: 05/22/19 09:59 Dose: 50 mg Ondansetron HCl (Zofran -) 4 mg PO Q8H PRN PRN Reason: NAUSEA AND/OR VOMITING Potassium Chloride (K-Dur -) 40 meq PO DAILY [facility] Last Admin: 05/22/19 09:58 Dose: 40 meq - Objective Vital Signs: Vital Signs Temperature 98.6 F 05/23/19 06:00 Pulse Rate 85 05/23/19 06:00 Respiratory Rate 20 05/23/19 06:00 Blood Pressure 117/62 05/23/19 06:00 O2 Sat by Pulse Oximetry (%) 94 L 05/22/19 21:00 Constitutional: Yes: Well Nourished, Calm Eyes: Yes: WNL HENT: Yes: WNL Neck: Yes: WNL Cardiovascular: Yes: Regular Rate and Rhythm, S1, S2 Respiratory: Yes: Rhonchi (few scattered adia rhonchi) Gastrointestinal: Yes: Normal Bowel Sounds, Soft Extremities: Yes: Erythema Edema: Yes (l>r.LLE erythema) Labs: CBC, BMP 05/23/19 05:43 05/23/19 05:43 INR, PTT INR 1.24 (0.83-1.09) H 05/13/19 07:00 Assessment/Plan Problem List - Problems (1) Change in mental status Code(s): R41.82 - ALTERED MENTAL STATUS, UNSPECIFIED (2) Hypothyroid Code(s): E03.9 - HYPOTHYROIDISM, UNSPECIFIED (3) Lesion of spleen Code(s): D73.9 - DISEASE OF SPLEEN, UNSPECIFIED (4) CAD (coronary artery disease) Code(s): I25.10 - ATHSCL HEART DISEASE OF [place] CORONARY ARTERY W/O ANG PCTRS (5) CHF exacerbation Code(s): I50.9 - HEART FAILURE, UNSPECIFIED (6) Cough Code(s): R05 - COUGH (7) Dementia Code(s): F03.90 - UNSPECIFIED DEMENTIA WITHOUT BEHAVIORAL DISTURBANCE (8) Depression Code(s): F32.9 - MAJOR DEPRESSIVE DISORDER, SINGLE EPISODE, UNSPECIFIED (9) Diverticula of colon Code(s): K57.30 - DVRTCLOS OF LG INT W/O PERFORATION OR ABSCESS W/O BLEEDING (10) Failure to thrive Code(s): [id number] - Qualifiers: Failure to thrive age range: in adult Qualified Code(s): R62.7 - Adult failure to thrive (11) Falling Code(s): W19.XXXA - UNSPECIFIED FALL, INITIAL ENCOUNTER (12) Gait abnormality Code(s): R26.9 - UNSPECIFIED ABNORMALITIES OF GAIT AND MOBILITY (13) Hyperlipidemia Code(s): E78.5 - HYPERLIPIDEMIA, UNSPECIFIED (14) Hypertension Code(s): I10 - ESSENTIAL (PRIMARY) HYPERTENSION (15) Metabolic encephalopathy Code(s): G93.41 - METABOLIC ENCEPHALOPATHY (16) Rheumatoid arthritis Code(s): M06.9 - RHEUMATOID ARTHRITIS, UNSPECIFIED (17) S/P cholecystectomy Code(s): Z90.49 - ACQUIRED ABSENCE OF OTHER SPECIFIED PARTS OF DIGESTIVE TRACT (18) Community acquired pneumonia Code(s): J18.9 - PNEUMONIA, UNSPECIFIED ORGANISM RUL 19 AAA 20 COPD Assessment/Plan ABX per ID O2 as needed INHALED BRONCHODILATORS NIPPV support as needed for increased WOB Aspiration precautions Fall precautions f/u chest x-rays lasix as per Cardiology DR LOVELACE
[2019-05-23] MEDS ORDERED: PT OWN MED DRAWER 7, Y5N ONE ×2 (10:49→15:29)
[2019-05-23] MEDS: ALBUMIN HUMAN 25% 12.5 GM/50 ML VIAL IVPB SCH ×2 (10:54→23:02)
[2019-05-23] MEDS: KCL 10 MEQ IVPB 10 MEQ/100 ML INFUS.BAG IVPB SCH ×2 (10:57→15:19)
[2019-05-23] MEDS: DIGOXIN 0.125 MG TABLET (FP) PO SCH (10:58)
[2019-05-23] MEDS: ENALAPRIL MALEATE 5 MG TABLET (FP) PO SCH ×2 (10:58→23:04)
[2019-05-23] MEDS: POTASSIUM CHLORIDE TABS 10 MEQ TABLET.ER (FP) PO SCH (10:58)
[2019-05-23] MEDS: FAMOTIDINE 40 MG/5 ML ORAL SUSPENSION PO SCH ×2 (10:59→23:04)
[2019-05-23] MEDS: VANCOMYCIN 1 GRAM (PRE-DOCKED) 1,000 MG/250 ML BAG IVPB SCH (11:02)
--- NOTE | 2019-05-23 11:32 | PN ---
Progress Note (short form) - Note Progress Note: s: complains of stomach pain, breathing ok. no chest pain, palps, dizziness. Current Medications Acetaminophen (Tylenol -) 650 mg PO Q4H PRN PRN Reason: PAIN Last Admin: 05/20/19 06:10 Dose: 650 mg Albumin Human (Albumin Human 25%) 12.5 gm IVPB BID [facility] Stop: 05/25/19 22:01 Last Admin: 05/23/19 10:54 Dose: 12.5 gm Albuterol/Ipratropium (Duoneb -) 1 amp NEB Q6H PRN PRN Reason: SHORTNESS OF BREATH Last Admin: 05/22/19 20:57 Dose: 1 amp Digoxin (Lanoxin -) 0.125 mg PO DAILY [facility] Last Admin: 05/23/19 10:58 Dose: 0.125 mg Diltiazem HCl (Cardizem Cd -) 120 mg PO DAILY [facility] Last Admin: 05/23/19 10:58 Dose: 120 mg Enalapril Maleate (Vasotec -) 5 mg PO BID [facility] Last Admin: 05/23/19 10:58 Dose: 5 mg Famotidine (Famotidine) 20 mg PO BID [facility] Last Admin: 05/23/19 10:59 Dose: 20 mg Furosemide (Lasix Injection -) 80 mg IVPUSH BID@1100,2300 [facility] Stop: 05/25/19 23:01 Last Admin: 05/23/19 10:59 Dose: 80 mg Heparin Sodium (Porcine) (Heparin -) 1,000 unit IVPUSH PRN PRN PRN Reason: Heparin Last Admin: 05/22/19 10:55 Dose: 1,000 unit Heparin Sodium (Porcine) (Heparin -) 5,000 unit IVPUSH PRN PRN PRN Reason: Heparin Last Admin: 05/21/19 01:23 EDT Dose: 5,000 unit Piperacillin Sod/Tazobactam (Sod 3.375 gm/ Dextrose) 50 mls @ 100 mls/hr IVPB Q8H-IV [facility]; Protocol Last Admin: 05/23/19 10:56 Dose: 100 mls/hr Vancomycin HCl (Vancomycin (Pre-Docked)) 1,000 mg in 250 mls @ 166.667 mls/hr IVPB Q24H [facility]; Protocol Last Admin: 05/23/19 11:02 Dose: 166.667 mls/hr Heparin Sodium (Porcine) 25, (000 unit/ Sodium Chloride) 500 mls @ 20 mls/hr IV TITR [facility]; Protocol Last Admin: 05/22/19 18:59 Dose: 1,250 unit/hr, 25 mls/hr Potassium Chloride (Potassium Chloride 10 Meq Premix Ivpb -) 10 meq in 100 mls @ 100 mls/hr IVPB Q60M [facility] Stop: 05/23/19 11:59 Last Admin: 05/23/19 10:57 Dose: 100 mls/hr Levothyroxine Sodium (Synthroid -) 25 mcg PO DAILY@0700 [facility] Last Admin: 05/23/19 06:32 Dose: 25 mcg Metoprolol Succinate (Toprol Xl -) 50 mg PO DAILY [facility] Last Admin: 05/23/19 10:58 Dose: 50 mg Ondansetron HCl (Zofran -) 4 mg PO Q8H PRN PRN Reason: NAUSEA AND/OR VOMITING Potassium Chloride (K-Dur -) 40 meq PO DAILY [facility] Last Admin: 05/23/19 10:58 Dose: 40 meq Vital Signs Period Temp Pulse Resp BP Sys/Barillas Pulse Ox Last 24 Hr 98 F-99.4 F 85-92 20-20 105-139/43-62 94 Constitutional: Yes: No Distress, Calm Eyes: No: Sclera Icterus HENT: No: Nasal Congestion Cardiovascular: Yes: Regular Rate and Rhythm, JVD (possible (accessory muscle ( SCM) use confounds)), S1, S2, Other (PMI non diplaced). No: Gallop, Murmur Respiratory: Yes: CTA Bilaterally (decr diffusely). No: Accessory Muscle Use, Rales, Wheezes Gastrointestinal: Yes: Normal Bowel Sounds, Soft. No: Tenderness Musculoskeletal: Yes: Other (No kyphosis) Extremities: No: Cold, Cyanosis Edema: Yes (2+ L ankle, trace R) Integumentary: No: Jaundice Neurological: Yes: Alert. No: Seizure Psychiatric: No: Agitated Assessment/Plan Echo 04/2019: mild LVH. grossly nl LVEF (50%). grossly nl RV. mild-mod AI. tele: NSR/MAT HRs 70s-90s. no PSVT. + artifact. DVT: -+ DVT of LLE here, CTA no central PE, distal branches not well seen -started on UFH to watch for signs of bleeding and monitor counts--cont for now -? 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 orthostasis -was in svt in ER and also septic with PNA--? contributed to unstable hemodynamics at home -EF normal, low risk for V arrhythmia -monitor tele -no signs of ACS sepsis, pna, lactic acidosis: -abx per ID -sx's stable h/o tachycardia-induced CMP, edema, ?acute HFPEF -lvef sev reduced 02/2019, in setting of uncontrolled MAT on presentation of ? prolonged duratoin (arrhythmia is asymptomatic, pt had not had recent outpt followup) -EF normalized here on 05/06 echo -rate control as doing. -ongoing SOB ? sec to large PNA. diuresis started for ++ edema, now with unilateral edema likely sec to DVT. 05/22 possible JVD noted on exam. I/Os variable the past 2 days. wt declining overall 164-->156. labs stable. - lasix inc to 80 mg IV BID, BUN/Cr increasing - receiving today with albumin, continue - monitor wts and UOP (singletary), labs trend Multifocal atrial tach (MAT), PSVT (short RP): -presented in SVT (? AVNRT), resolved in ER--ongoing bursts on tele -predominant rhythm is MAT which is mildly rapid -home med adherence suboptimal (dementia, frequently refuses meds from and [employer] TE[employer]ER)--? better of late -no more PSVT on tele since diltiazem 120 qd added: cont dilt, metopr 50 qd, digoxin (level good). -would not be a candidate for 1c use (flecainide) given prior low EF (and hi risk for CAD in future). could use amio but carries pulm toxicity risks given extensive copd. could consider AVN ablation with PPM if cannot adequately control HRs with tolerable doses of AVN blockers. -again disc'd med adherence importance with pt, in presence of family (done repeatedly in office as well), to avoid invasive procedures HTN: -target <150/90 given orthostasis risk -meds adjusted here to incr AVN blockers -BP improved once enalapril resumed--at goals but often soft - enalapril 20 qd reduced to 5 mg bid, titrate up as needed -iv diuresis started Possible CAD: -prior mibi 2012 reported low-risk area of (septal) ischemia and has been managed medically with no angina sx's -pt with extensive atherosclerotic aorta vascular disease -cont home bb, statin regimen needs clarification from office records. -ASA held in recent past when developed NSAID-related PUD (hi risk for recurrent bleeding) -intermediate trop elevation, possibly demand from sepsis/svt. does not appear to be acs. Thoracic and abdominal aorta aneurysms: -known ascending aorta aneurysm (4.1 cm), descending aorta aneurysm (5.2 cm), stable on recent ct 03/2019 -4.4 cm AAA, enlarged from 3.9 in 02/2018 -bp control, BB, statin as doing -would be high risk (maybe prohibitive) for open repair in any case (ascending aorta not amenable to endovascular approach) COPD, pulm HTN: -marked emphys changes on CT chest -dilated PA c/w pulm HTN -has refused home O2 repeatedly -cont suppl O2 here as doing h/o Peptic ulcer disease (NSAIDS)
--- NOTE | 2019-05-23 17:10 | PN ---
Progress Note, Physician History of Present Illness: AWAKE, SL CONFUSED SUPINE IN BED OFFERS NO COMPLAINTS DENIES DYSPNEA/ COUGH NO C/O LEG PAIN AFEBRILE WBC CONTINUES TO IMPROVE LEGIONELLA AG (-) - Current Medication List Current Medications: Active Medications Acetaminophen (Tylenol -) 650 mg PO Q4H PRN PRN Reason: PAIN Last Admin: 05/20/19 06:10 Dose: 650 mg Albumin Human (Albumin Human 25%) 12.5 gm IVPB BID [facility] Stop: 05/25/19 22:01 Last Admin: 05/23/19 10:54 Dose: 12.5 gm Albuterol/Ipratropium (Duoneb -) 1 amp NEB Q6H PRN PRN Reason: SHORTNESS OF BREATH Last Admin: 05/22/19 20:57 Dose: 1 amp Digoxin (Lanoxin -) 0.125 mg PO DAILY [facility] Last Admin: 05/23/19 10:58 Dose: 0.125 mg Diltiazem HCl (Cardizem Cd -) 120 mg PO DAILY [facility] Last Admin: 05/23/19 10:58 Dose: 120 mg Enalapril Maleate (Vasotec -) 5 mg PO BID [facility] Last Admin: 05/23/19 10:58 Dose: 5 mg Famotidine (Famotidine) 20 mg PO BID [facility] Last Admin: 05/23/19 10:59 Dose: 20 mg Furosemide (Lasix Injection -) 80 mg IVPUSH BID@1100,2300 [facility] Stop: 05/25/19 23:01 Last Admin: 05/23/19 10:59 Dose: 80 mg Heparin Sodium (Porcine) (Heparin -) 1,000 unit IVPUSH PRN PRN PRN Reason: Heparin Last Admin: 05/22/19 10:55 Dose: 1,000 unit Heparin Sodium (Porcine) (Heparin -) 5,000 unit IVPUSH PRN PRN PRN Reason: Heparin Last Admin: 05/21/19 01:23 EDT Dose: 5,000 unit Piperacillin Sod/Tazobactam (Sod 3.375 gm/ Dextrose) 50 mls @ 100 mls/hr IVPB Q8H-IV [facility]; Protocol Last Admin: 05/23/19 10:56 Dose: 100 mls/hr Vancomycin HCl (Vancomycin (Pre-Docked)) 1,000 mg in 250 mls @ 166.667 mls/hr IVPB Q24H [facility]; Protocol Last Admin: 05/23/19 11:02 Dose: 166.667 mls/hr Heparin Sodium (Porcine) 25, (000 unit/ Sodium Chloride) 500 mls @ 20 mls/hr IV TITR [facility]; Protocol Last Admin: 05/22/19 18:59 Dose: 1,250 unit/hr, 25 mls/hr Levothyroxine Sodium (Synthroid -) 25 mcg PO DAILY@0700 [facility] Last Admin: 05/23/19 06:32 Dose: 25 mcg Metoprolol Succinate (Toprol Xl -) 50 mg PO DAILY [facility] Last Admin: 05/23/19 10:58 Dose: 50 mg Ondansetron HCl (Zofran -) 4 mg PO Q8H PRN PRN Reason: NAUSEA AND/OR VOMITING Potassium Chloride (K-Dur -) 40 meq PO DAILY [facility] Last Admin: 05/23/19 10:58 Dose: 40 meq - Objective Vital Signs: Vital Signs Temperature 97.7 F 05/23/19 14:51 Pulse Rate 78 05/23/19 14:51 Respiratory Rate 18 05/23/19 14:51 Blood Pressure 108/55 L 05/23/19 14:51 O2 Sat by Pulse Oximetry (%) 94 L 05/23/19 09:00 Constitutional: Yes: No Distress Cardiovascular: Yes: Regular Rate and Rhythm, S1, S2 Respiratory: Yes: Rhonchi Gastrointestinal: Yes: Normal Bowel Sounds, Soft, Abdomen, Obese. No: Tenderness Extremities: Yes: Other (PERSISTANT ERYTHEMA L PRETIBIAL AREA; WARM TO TOUCH) Edema: Yes Edema: LLE: 2+, RLE: 2+ Labs: CBC, BMP 05/23/19 05:43 05/23/19 05:43 INR, PTT INR 1.24 (0.83-1.09) H 05/13/19 07:00 Assessment/Plan PNEUMONIA CELLULITIS / DVT L LE LEUKOCYTOSIS IMPROVED LACTIC ACIDOSIS RESOLVED TOXIC METABOLIC ENCEPHALOPATHY / OBS CONTINUE ZOSYN/ VANCOMYCIN
[2019-05-23] MEDS: HEPARIN - 25,000 UNIT in SODIUM CHLORIDE 495 ML IV SCH (18:28)
--- NOTE | 2019-05-23 19:40 | CON.NEURO ---
Consult Consult Specialty:: Marshall Referred by:: Daughter Reason for Consultation:: ams - History of Present Illness History of Present Illness: 74 acacia albertina woman with PMH CAD dementia neuropathy AAA and HTN came in with ams I spoke to [facility] daughter and she informed me that [facility] patient has not being herself No recent travel no fall no recnet seizure Patient is on IVIG for neuropathy Patient was diagnosed with pneumonia Patient is on Abx I reviewed [facility] Ct head no acute path Saw [facility] patient on [facility] floor very confused - History Source History Provided By: Significant Other, Medical Record Limitations to Obtaining History: Clinical Condition - Past Medical History LICENSED SURVEYOR: Yes: Dementia, Peripheral Neuropathy, TIA Cardio/Vascular: Yes: Aneurysm (3.8cm AAA), HTN (controlled w/ hydralazine), Hyperlipdemia Pulmonary: Yes: Asthma, COPD Gastrointestinal: Yes: Diverticulosis, Gastritis, Hiatal Hernia, Other ( hyperplastic sigmoid polyps removed 12/27) Hepatobiliary: Yes: Cholelithiasis (s/p lap choly), Other (fatty liver) Musculoskeletal: Yes: Other (neuropathy LE) Rheumatology: Yes: Rheumatoid Arthritis, Vasculitis (of the skin) - Past Surgical History Past Surgical History: Yes: Breast Biopsy (b/l, negative), Cholecystectomy (lap choly 05/04), Colonoscopy, Hernia Repair (umbilical hernia repair 05/04), Hysterectomy (noel/bso), Joint Replacement (Lt. 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 History of Recent Travel: No Home Medications - Allergies Allergies/Adverse Reactions: Allergies Allergy/AdvReac Type Severity Reaction Status Date / Time Sulfa (Sulfonamide Allergy Hives Verified 03/09/18 18:06 Antibiotics) dipyridamole AdvReac Mild headache Verified 03/09/18 18:06 [From Persantine] indomethacin [From Indocin] AdvReac Mild headache Verified 03/09/18 18:06 - Home Medications Home Medications: Ambulatory Orders Amlodipine Besylate 5 mg PO DAILY 03/07/19 Digoxin [Lanoxin -] 0.125 mg PO DAILY 03/07/19 Furosemide [Lasix] 20 mg PO DAILY 03/07/19 Levothyroxine [Synthroid -] 0 mcg PO DAILY 03/07/19 Ondansetron [Zofran -] 4 mg PO PRN 03/07/19 Pantoprazole Sodium 40 mg PO DAILY 03/07/19 Albuterol 2.5/Ipratropium 0.5 [Duoneb -] 1 amp NEB RQID amp 03/14/19 Azithromycin [Zithromax 250mg Tablets -] 250 mg PO DAILY #5 tablet 03/14/19 Enalapril Maleate [Vasotec -] 20 mg PO DAILY #60 tablet 03/14/19 Methotrexate [Mexate -] 20 mg PO Mo@1000 tablet 03/14/19 Metoprolol Succinate [Toprol XL -] 50 mg PO DAILY #30 tab.sr.24h 03/14/19 Mirtazapine [Remeron -] 15 mg PO HS #30 tablet 03/14/19 predniSONE [Deltasone -] 10 mg PO DAILY #100 tablet 03/14/19 Family Medical History Family History: Unable to Obtain Review of Systems - Review of Systems Neurological: reports: Headache, Incoordination, Numbness, Parasthesia Physical Exam-Neuro Vital Signs: Vital Signs Temperature 98.6 F 05/23/19 17:00 Pulse Rate 76 05/23/19 17:00 Respiratory Rate 20 05/23/19 17:00 Blood Pressure 111/76 05/23/19 17:00 O2 Sat by Pulse Oximetry (%) 94 L 05/23/19 09:00 Constitutional: Yes: Well Nourished Neck: Yes: WNL Cardiovascular: Yes: WNL Labs: CBC, BMP 05/23/19 05:43 05/23/19 05:43 INR, PTT INR 1.24 (0.83-1.09) H 05/13/19 07:00 - Neuro Exam Level Of Consciousness: Yes: Oriented to Person, Oriented to Place Eyes: Yes: PERRLA Speech: WNL Dominant Hand: Right Mini Mental Exam: 22 Cranial Nerves II-XII Intact: Yes Gag: Present DTR's: 0 Left Bicep, 0 Right Bicep, 0 Left Tricep, 0 Right Tricep Response to light touch: Normal Response to pain prick: Normal Response to temperature: Abnormal Motor Strength: 3/5: Left Arm, Right Arm, Left Leg, Right Leg Gait: Deferred Imaging - Results Cat Scan: Image Reviewed Problem List - Problems (1) Change in mental status Assessment/Plan: Baseline dementia late Onset Alzheimer Neuropathy 1. Neuro checks 2. Start Galanatmine 3. Follow up with ID 4. OOB chair Thank you Perri Olivares Code(s): R41.82 - ALTERED MENTAL STATUS, UNSPECIFIED
[2019-05-23] MEDS: ALBUTEROL SO4 2.5/IPRATROPIUM 0.5 INH SOL 3 ML VIAL.NEB. NEB PRN (20:44)
[2019-05-23] MEDS: DONEPEZIL HCL 5 MG TABLET (FP) PO SCH (23:04)
[2019-05-24] MEDS ORDERED: DEXTROSE 5%-WATER - 50 ML IVPB ONE ×3 (01:28→17:22)
[2019-05-24] MEDS ORDERED: PIPERACILLIN/TAZOBACTAM 3.375 GM VIAL IVPB ONE ×3 (01:28→17:22)
[2019-05-24] MEDS: PIPERACILLIN/TAZOB 3.375 GM 3.375 GM in DEXTROSE 5%-WATER - 50 ML IVPB SCH ×3 (02:19→17:25)
[2019-05-24] MEDS: ONDANSETRON 4 MG TABLET PO PRN (02:57)
[2019-05-24] MEDS: LEVOTHYROXINE NA 25 MCG TABLET (FP) PO SCH (06:42)
[2019-05-24 06:44] LABS: BASO % 1.2 % (0-2.0); EOS % 1.1 % (0-4.5); HEMATOCRIT 32.1 % (32.4-45.2); HEMOGLOBIN 10.7 GM/dL (10.7-15.3); LYMPH % 7.5 % (8-40); MCH 29.3 pg (25.7-33.7); MCHC 33.4 g/dl (32.0-36.0); MEAN CELL VOLUME 87.7 fl (80-96); MEAN PLT VOLUME 6.9 fl (7.5-11.1); MONO % 5.7 % (3.8-10.2); NEUT % 84.5 % (42.8-82.8); PLATELET COUNT 479 K/MM3 (134-434); RBC 3.66 M/mm3 (3.60-5.2); RDW 21.1 % (11.6-15.6); WHITE BLOOD COUNT 15.9 K/mm3 (4.0-10.0)
[2019-05-24 07:06] LABS: ALBUMIN 2.6 g/dl (3.4-5.0); ALK PHOS 81 U/L (45-117); ANION GAP 6 MMOL/L (8-16); BILIRUBIN,TOTAL 1.2 mg/dL (0.2-1); BLOOD UREA NITROGEN 19.1 mg/dL (7-18); CHLORIDE 89 mmol/L (98-107); CO2 37 mmol/L (21-32); CREATININE 1.7 mg/dL (0.55-1.3); GLUCOSE,RANDOM 139 mg/dL (74-106); POTASSIUM 4.1 mmol/L (3.5-5.1); SGOT/AST 20 U/L (15-37); SGPT/ALT < 6 U/L (13-61); SODIUM 133 mmol/L (136-145); TOT PROT 6.6 g/dl (6.4-8.2)
--- NOTE | 2019-05-24 08:48 | PN ---
Progress Note, Physician - Current Medication List Current Medications: Active Medications Acetaminophen (Tylenol -) 650 mg PO Q4H PRN PRN Reason: PAIN Last Admin: 05/20/19 06:10 Dose: 650 mg Albumin Human (Albumin Human 25%) 12.5 gm IVPB BID [facility] Stop: 05/25/19 22:01 Last Admin: 05/23/19 23:02 Dose: 12.5 gm Albuterol/Ipratropium (Duoneb -) 1 amp NEB Q6H PRN PRN Reason: SHORTNESS OF BREATH Last Admin: 05/23/19 20:44 Dose: 1 amp Digoxin (Lanoxin -) 0.125 mg PO DAILY [facility] Last Admin: 05/23/19 10:58 Dose: 0.125 mg Diltiazem HCl (Cardizem Cd -) 120 mg PO DAILY [facility] Last Admin: 05/23/19 10:58 Dose: 120 mg Donepezil HCl (Aricept -) 5 mg PO HS [facility] Last Admin: 05/23/19 23:04 Dose: 5 mg Enalapril Maleate (Vasotec -) 5 mg PO BID [facility] Last Admin: 05/23/19 23:04 Dose: 5 mg Famotidine (Famotidine) 20 mg PO BID [facility] Last Admin: 05/23/19 23:04 Dose: 20 mg Furosemide (Lasix Injection -) 80 mg IVPUSH BID@1100,2300 [facility] Stop: 05/25/19 23:01 Last Admin: 05/23/19 23:04 Dose: 80 mg Heparin Sodium (Porcine) (Heparin -) 1,000 unit IVPUSH PRN PRN PRN Reason: Heparin Last Admin: 05/22/19 10:55 Dose: 1,000 unit Heparin Sodium (Porcine) (Heparin -) 5,000 unit IVPUSH PRN PRN PRN Reason: Heparin Last Admin: 05/21/19 01:23 EDT Dose: 5,000 unit Piperacillin Sod/Tazobactam (Sod 3.375 gm/ Dextrose) 50 mls @ 100 mls/hr IVPB Q8H-IV [facility]; Protocol Last Admin: 05/24/19 02:19 Dose: 100 mls/hr Vancomycin HCl (Vancomycin (Pre-Docked)) 1,000 mg in 250 mls @ 166.667 mls/hr IVPB Q24H [facility]; Protocol Last Admin: 05/23/19 11:02 Dose: 166.667 mls/hr Heparin Sodium (Porcine) 25, (000 unit/ Sodium Chloride) 500 mls @ 20 mls/hr IV TITR [facility]; Protocol Last Admin: 05/23/19 18:28 Dose: 1,250 unit/hr, 25 mls/hr Levothyroxine Sodium (Synthroid -) 25 mcg PO DAILY@0700 [facility] Last Admin: 05/24/19 06:42 Dose: 25 mcg Metoprolol Succinate (Toprol Xl -) 50 mg PO DAILY [facility] Last Admin: 05/23/19 10:58 Dose: 50 mg Ondansetron HCl (Zofran -) 4 mg PO Q8H PRN PRN Reason: NAUSEA AND/OR VOMITING Last Admin: 05/24/19 02:57 Dose: 4 mg Potassium Chloride (K-Dur -) 40 meq PO DAILY [facility] Last Admin: 05/23/19 10:58 Dose: 40 meq - Objective Vital Signs: Vital Signs Temperature 98.7 F 05/24/19 01:57 Pulse Rate 101 H 05/24/19 06:00 Respiratory Rate 20 05/24/19 06:00 Blood Pressure 119/54 L 05/24/19 06:00 O2 Sat by Pulse Oximetry (%) 94 L 05/23/19 21:00 Cardiovascular: Yes: S1, S2 Respiratory: Yes: Regular, CTA Bilaterally Gastrointestinal: Yes: Normal Bowel Sounds, Soft Edema: Yes (less) Labs: CBC, BMP 05/24/19 06:15 05/24/19 06:15 INR, PTT INR 1.24 (0.83-1.09) H 05/13/19 07:00 Assessment/Plan - Problems (1) Change in mental status Assessment/Plan: toxic metabolic encephalopathy secondary ro PNA=right sided leukocytosis and low grade temp lactic acidosis resolved on iv zosyn and vanco Microbiology 05/12/19 21:10 Urine For Antigen Detection Legionella Antigen - Final 05/12/19 21:10 Urine For Antigen Detection Streptococcus pneumoniae Antigen (M - Final 05/12/19 10:20 Urine - Urine - Catheterized Urine Culture - Final NO GROWTH OBTAINED 05/12/19 08:40 Blood - Peripheral Venous Blood Culture - Preliminary NO GROWTH OBTAINED AFTER 72 HOURS, INCUBATION TO CONTINUE FOR 2 DAYS. 05/12/19 08:40 Blood - Peripheral Venous Blood Culture - Preliminary NO GROWTH OBTAINED AFTER 72 HOURS, INCUBATION TO CONTINUE FOR 2 DAYS. Code(s): R41.82 - ALTERED MENTAL STATUS, UNSPECIFIED (2) Lesion of spleen Assessment/Plan: appeciate heme evaluation Code(s): D73.9 - DISEASE OF SPLEEN, UNSPECIFIED (3) Hypothyroid Assessment/Plan: tsh synthroid Code(s): E03.9 - HYPOTHYROIDISM, UNSPECIFIED (4) CAD (coronary artery disease) Assessment/Plan: ob BB no aspirin bc of previuos PUD Code(s): I25.10 - ATHSCL HEART DISEASE OF [place] CORONARY ARTERY W/O ANG PCTRS (5) Abdominal pain Assessment/Plan: recent ct scan no acute pathology noted will give zantac bid no loose bm Code(s): R10.9 - UNSPECIFIED ABDOMINAL PAIN Qualifiers: (6) Hypertension Assessment/Plan: enalapril Code(s): I10 - ESSENTIAL (PRIMARY) HYPERTENSION (7) PSVT (paroxysmal supraventricular tachycardia) Assessment/Plan: controlled on digxin and diltiazem and meotprolol Code(s): I47.1 - SUPRAVENTRICULAR TACHYCARDIA (8) CHF exacerbation Assessment/Plan: iv lasix bid 8o mg bid add albumin on enalapril and Code(s): I50.9 - HEART FAILURE, UNSPECIFIED (9) Edema of left lower extremity Assessment/Plan: LLE doppler positive for DVT on iv heparin patient with limited mobilty will get heme to consult on patient regarding duration of starting NOAC started on vancomycin for cellulitis of LLE add albumin Code(s): R60.0 - LOCALIZED EDEMA (10) Cellulitis Assessment/Plan: iv vancomycin for LLE cellulitis MRSA screen pending Code(s): L03.90 - CELLULITIS, UNSPECIFIED
[2019-05-24 09:51] LABS: ANISOCYTOSIS 1+; MACROCYTOSIS 0; PLATELET ESTIMATE NORMAL
--- NOTE | 2019-05-24 10:33 | PN ---
Progress Note (short form) - Note Progress Note: s: no chest pain, palps, dizziness. stable abdominal pain Current Medications Acetaminophen (Tylenol -) 650 mg PO Q4H PRN PRN Reason: PAIN Last Admin: 05/20/19 06:10 Dose: 650 mg Albumin Human (Albumin Human 25%) 12.5 gm IVPB BID [facility] Stop: 05/25/19 22:01 Last Admin: 05/23/19 23:02 Dose: 12.5 gm Albuterol/Ipratropium (Duoneb -) 1 amp NEB Q6H PRN PRN Reason: SHORTNESS OF BREATH Last Admin: 05/23/19 20:44 Dose: 1 amp Digoxin (Lanoxin -) 0.125 mg PO DAILY [facility] Last Admin: 05/23/19 10:58 Dose: 0.125 mg Diltiazem HCl (Cardizem Cd -) 120 mg PO DAILY [facility] Last Admin: 05/23/19 10:58 Dose: 120 mg Donepezil HCl (Aricept -) 5 mg PO HS [facility] Last Admin: 05/23/19 23:04 Dose: 5 mg Enalapril Maleate (Vasotec -) 5 mg PO BID [facility] Last Admin: 05/23/19 23:04 Dose: 5 mg Famotidine (Famotidine) 20 mg PO BID [facility] Last Admin: 05/23/19 23:04 Dose: 20 mg Furosemide (Lasix Injection -) 80 mg IVPUSH BID@1100,2300 [facility] Stop: 05/25/19 23:01 Last Admin: 05/23/19 23:04 Dose: 80 mg Heparin Sodium (Porcine) (Heparin -) 1,000 unit IVPUSH PRN PRN PRN Reason: Heparin Last Admin: 05/22/19 10:55 Dose: 1,000 unit Heparin Sodium (Porcine) (Heparin -) 5,000 unit IVPUSH PRN PRN PRN Reason: Heparin Last Admin: 05/21/19 01:23 EDT Dose: 5,000 unit Piperacillin Sod/Tazobactam (Sod 3.375 gm/ Dextrose) 50 mls @ 100 mls/hr IVPB Q8H-IV [facility]; Protocol Last Admin: 05/24/19 02:19 Dose: 100 mls/hr Vancomycin HCl (Vancomycin (Pre-Docked)) 1,000 mg in 250 mls @ 166.667 mls/hr IVPB Q24H [facility]; Protocol Last Admin: 05/23/19 11:02 Dose: 166.667 mls/hr Heparin Sodium (Porcine) 25, (000 unit/ Sodium Chloride) 500 mls @ 20 mls/hr IV TITR [facility]; Protocol Last Admin: 05/23/19 18:28 Dose: 1,250 unit/hr, 25 mls/hr Levothyroxine Sodium (Synthroid -) 25 mcg PO DAILY@0700 [facility] Last Admin: 05/24/19 06:42 Dose: 25 mcg Metoprolol Succinate (Toprol Xl -) 50 mg PO DAILY [facility] Last Admin: 05/23/19 10:58 Dose: 50 mg Ondansetron HCl (Zofran -) 4 mg PO Q8H PRN PRN Reason: NAUSEA AND/OR VOMITING Last Admin: 05/24/19 02:57 Dose: 4 mg Potassium Chloride (K-Dur -) 40 meq PO DAILY [facility] Last Admin: 05/23/19 10:58 Dose: 40 meq Vital Signs Period Temp Pulse Resp BP Sys/Barillas Pulse Ox Last 24 Hr 97.7 F-98.7 F 76-101 18-20 108-119/52-76 94 Constitutional: Yes: No Distress, Calm Eyes: No: Sclera Icterus HENT: No: Nasal Congestion Cardiovascular: Yes: Regular Rate and Rhythm, JVD (possible (accessory muscle ( SCM) use confounds)), S1, S2, Other (PMI non diplaced). No: Gallop, Murmur Respiratory: Yes: CTA Bilaterally (decr diffusely). No: Accessory Muscle Use, Rales, Wheezes Gastrointestinal: Yes: Normal Bowel Sounds, Soft. No: Tenderness Musculoskeletal: Yes: Other (No kyphosis) Extremities: No: Cold, Cyanosis Edema: Yes (2+ L ankle, trace R) Integumentary: No: Jaundice Neurological: Yes: Alert. No: Seizure Psychiatric: No: Agitated Assessment/Plan Echo 04/2019: mild LVH. grossly nl LVEF (50%). grossly nl RV. mild-mod AI. tele: NSR/MAT HRs 70s-90s. no PSVT. + artifact. DVT: -+ DVT of LLE here, CTA no central PE, distal branches not well seen -started on UFH to watch for signs of bleeding and monitor counts--cont for now -? 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 orthostasis -was in svt in ER and also septic with PNA--? contributed to unstable hemodynamics at home -EF normal, low risk for V arrhythmia -monitor tele -no signs of ACS sepsis, pna, lactic acidosis: -abx per ID -sx's stable h/o tachycardia-induced CMP, edema, ?acute HFPEF -lvef sev reduced 02/2019, in setting of uncontrolled MAT on presentation of ? prolonged duratoin (arrhythmia is asymptomatic, pt had not had recent outpt followup) -EF normalized here on 05/06 echo -rate control as doing. -ongoing SOB ? sec to large PNA. diuresis started for ++ edema, now with unilateral edema likely sec to DVT. 05/22 possible JVD noted on exam. I/Os variable the past 2 days. wt declining overall 164-->156. labs stable. - lasix inc to 80 mg IV BID, BUN/Cr increasing - receiving IV lasix with albumin - monitor wts and UOP (singletary), labs trend Multifocal atrial tach (MAT), PSVT (short RP): -presented in SVT (? 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 better of late -no more PSVT on tele since diltiazem 120 qd added: cont dilt, metopr 50 qd, digoxin (level good). -would not be a candidate for 1c use (flecainide) given prior low EF (and hi risk for CAD in future). could use amio but carries pulm toxicity risks given extensive copd. could consider AVN ablation with PPM if cannot adequately control HRs with tolerable doses of AVN blockers. -again disc'd med adherence importance with pt, in presence of family (done repeatedly in office as well), to avoid invasive procedures HTN: -target <150/90 given orthostasis risk -meds adjusted here to incr AVN blockers -BP improved once enalapril resumed--at goals but often soft - enalapril 20 qd reduced to 5 mg bid, BP stable Possible CAD: -prior mibi 2012 reported low-risk area of (septal) ischemia and has been managed medically with no angina sx's -pt with extensive atherosclerotic aorta vascular disease -cont home bb, statin regimen needs clarification from office records. -ASA held in recent past when developed NSAID-related PUD (hi risk for recurrent bleeding) -intermediate trop elevation, possibly demand from sepsis/svt. does not appear to be acs. Thoracic and abdominal aorta aneurysms: -known ascending aorta aneurysm (4.1 cm), descending aorta aneurysm (5.2 cm), stable on recent ct 03/2019 -4.4 cm AAA, enlarged from 3.9 in 02/2018 -bp control, BB, statin as doing -would be high risk (maybe prohibitive) for open repair in any case (ascending aorta not amenable to endovascular approach) COPD, pulm HTN: -marked emphys changes on CT chest -dilated PA c/w pulm HTN -has refused home O2 repeatedly -cont suppl O2 here as doing h/o Peptic ulcer disease (NSAIDS)
--- NOTE | 2019-05-24 10:48 | PN ---
Progress Note, Physician History of Present Illness: PULMONARY ALERT FEELING BETTER,SOB IMPROVING - Current Medication List Current Medications: Active Medications Acetaminophen (Tylenol -) 650 mg PO Q4H PRN PRN Reason: PAIN Last Admin: 05/20/19 06:10 Dose: 650 mg Albumin Human (Albumin Human 25%) 12.5 gm IVPB BID [facility] Stop: 05/25/19 22:01 Last Admin: 05/23/19 23:02 Dose: 12.5 gm Albuterol/Ipratropium (Duoneb -) 1 amp NEB Q6H PRN PRN Reason: SHORTNESS OF BREATH Last Admin: 05/23/19 20:44 Dose: 1 amp Digoxin (Lanoxin -) 0.125 mg PO DAILY [facility] Last Admin: 05/23/19 10:58 Dose: 0.125 mg Diltiazem HCl (Cardizem Cd -) 120 mg PO DAILY [facility] Last Admin: 05/23/19 10:58 Dose: 120 mg Donepezil HCl (Aricept -) 5 mg PO HS [facility] Last Admin: 05/23/19 23:04 Dose: 5 mg Enalapril Maleate (Vasotec -) 5 mg PO BID [facility] Last Admin: 05/23/19 23:04 Dose: 5 mg Famotidine (Famotidine) 20 mg PO BID [facility] Last Admin: 05/23/19 23:04 Dose: 20 mg Furosemide (Lasix Injection -) 80 mg IVPUSH BID@1100,2300 [facility] Stop: 05/25/19 23:01 Last Admin: 05/23/19 23:04 Dose: 80 mg Heparin Sodium (Porcine) (Heparin -) 1,000 unit IVPUSH PRN PRN PRN Reason: Heparin Last Admin: 05/22/19 10:55 Dose: 1,000 unit Heparin Sodium (Porcine) (Heparin -) 5,000 unit IVPUSH PRN PRN PRN Reason: Heparin Last Admin: 05/21/19 01:23 EDT Dose: 5,000 unit Piperacillin Sod/Tazobactam (Sod 3.375 gm/ Dextrose) 50 mls @ 100 mls/hr IVPB Q8H-IV [facility]; Protocol Last Admin: 05/24/19 02:19 Dose: 100 mls/hr Vancomycin HCl (Vancomycin (Pre-Docked)) 1,000 mg in 250 mls @ 166.667 mls/hr IVPB Q24H [facility]; Protocol Last Admin: 05/23/19 11:02 Dose: 166.667 mls/hr Heparin Sodium (Porcine) 25, (000 unit/ Sodium Chloride) 500 mls @ 20 mls/hr IV TITR [facility]; Protocol Last Admin: 05/23/19 18:28 Dose: 1,250 unit/hr, 25 mls/hr Levothyroxine Sodium (Synthroid -) 25 mcg PO DAILY@0700 [facility] Last Admin: 05/24/19 06:42 Dose: 25 mcg Metoprolol Succinate (Toprol Xl -) 50 mg PO DAILY [facility] Last Admin: 05/23/19 10:58 Dose: 50 mg Ondansetron HCl (Zofran -) 4 mg PO Q8H PRN PRN Reason: NAUSEA AND/OR VOMITING Last Admin: 05/24/19 02:57 Dose: 4 mg Potassium Chloride (K-Dur -) 40 meq PO DAILY [facility] Last Admin: 05/23/19 10:58 Dose: 40 meq - Objective Vital Signs: Vital Signs Temperature 98.7 F 05/24/19 01:57 Pulse Rate 101 H 05/24/19 06:00 Respiratory Rate 20 05/24/19 06:00 Blood Pressure 119/54 L 05/24/19 06:00 O2 Sat by Pulse Oximetry (%) 94 L 05/23/19 21:00 Constitutional: Yes: Well Nourished, Calm Eyes: Yes: WNL HENT: Yes: WNL Neck: Yes: WNL Cardiovascular: Yes: Regular Rate and Rhythm, S1, S2 Respiratory: Yes: Rales (FEW BASILAR RALES) Gastrointestinal: Yes: Normal Bowel Sounds, Soft Extremities: Yes: Erythema Edema: Yes (L> R) Labs: CBC, BMP 05/24/19 06:15 05/24/19 06:15 INR, PTT INR 1.24 (0.83-1.09) H 05/13/19 07:00 Assessment/Plan Problem List - Problems (1) Change in mental status Code(s): R41.82 - ALTERED MENTAL STATUS, UNSPECIFIED (2) Hypothyroid Code(s): E03.9 - HYPOTHYROIDISM, UNSPECIFIED (3) Lesion of spleen Code(s): D73.9 - DISEASE OF SPLEEN, UNSPECIFIED (4) CAD (coronary artery disease) Code(s): I25.10 - ATHSCL HEART DISEASE OF [place] CORONARY ARTERY W/O ANG PCTRS (5) CHF exacerbation Code(s): I50.9 - HEART FAILURE, UNSPECIFIED (6) Cough Code(s): R05 - COUGH (7) Dementia Code(s): F03.90 - UNSPECIFIED DEMENTIA WITHOUT BEHAVIORAL DISTURBANCE (8) Depression Code(s): F32.9 - MAJOR DEPRESSIVE DISORDER, SINGLE EPISODE, UNSPECIFIED (9) Diverticula of colon Code(s): K57.30 - DVRTCLOS OF LG INT W/O PERFORATION OR ABSCESS W/O BLEEDING (10) Failure to thrive Code(s): BXV6006 - Qualifiers: Failure to thrive age range: in adult Qualified Code(s): R62.7 - Adult failure to thrive (11) Falling Code(s): W19.XXXA - UNSPECIFIED FALL, INITIAL ENCOUNTER (12) Gait abnormality Code(s): R26.9 - UNSPECIFIED ABNORMALITIES OF GAIT AND MOBILITY (13) Hyperlipidemia Code(s): E78.5 - HYPERLIPIDEMIA, UNSPECIFIED (14) Hypertension Code(s): I10 - ESSENTIAL (PRIMARY) HYPERTENSION (15) Metabolic encephalopathy Code(s): G93.41 - METABOLIC ENCEPHALOPATHY (16) Rheumatoid arthritis Code(s): M06.9 - RHEUMATOID ARTHRITIS, UNSPECIFIED (17) S/P cholecystectomy Code(s): Z90.49 - ACQUIRED ABSENCE OF OTHER SPECIFIED PARTS OF DIGESTIVE TRACT (18) Community acquired pneumonia Code(s): J18.9 - PNEUMONIA, UNSPECIFIED ORGANISM RUL 19 AAA 20 COPD 21. NAVID Assessment/Plan ABX per ID O2 as needed INHALED BRONCHODILATORS NIPPV support as needed for increased WOB Aspiration precautions Fall precautions f/u chest x-rays lasix as per Cardiology monitor lytes,renal function DR LOVELACE
[2019-05-24] MEDS ORDERED: PT OWN MED DRAWER 7, Y5N ONE ×3 (11:38→20:07)
[2019-05-24] MEDS: DIGOXIN 0.125 MG TABLET (FP) PO SCH (11:41)
[2019-05-24] MEDS: POTASSIUM CHLORIDE TABS 10 MEQ TABLET.ER (FP) PO SCH (11:42)
[2019-05-24] MEDS: ENALAPRIL MALEATE 5 MG TABLET (FP) PO SCH ×2 (11:42→21:46)
[2019-05-24] MEDS: FAMOTIDINE 40 MG/5 ML ORAL SUSPENSION PO SCH ×2 (11:42→21:46)
[2019-05-24] MEDS: ALBUMIN HUMAN 25% 12.5 GM/50 ML VIAL IVPB SCH ×2 (12:00→22:38)
[2019-05-24] MEDS: HEPARIN NA (PORCINE) 5,000 UNITS/ML 1ML VIAL IVPUSH PRN (12:01)
--- NOTE | 2019-05-24 12:02 | PN ---
Progress Note, Physician History of Present Illness: AWAKE, SL CONFUSED SEATED IN BED OFFERS NO COMPLAINTS DENIES DYSPNEA/ COUGH NO C/O LEG PAIN AFEBRILE - Current Medication List Current Medications: Active Medications Acetaminophen (Tylenol -) 650 mg PO Q4H PRN PRN Reason: PAIN Last Admin: 05/20/19 06:10 Dose: 650 mg Albumin Human (Albumin Human 25%) 12.5 gm IVPB BID [facility] Stop: 05/25/19 22:01 Last Admin: 05/23/19 23:02 Dose: 12.5 gm Albuterol/Ipratropium (Duoneb -) 1 amp NEB Q6H PRN PRN Reason: SHORTNESS OF BREATH Last Admin: 05/23/19 20:44 Dose: 1 amp Digoxin (Lanoxin -) 0.125 mg PO DAILY [facility] Last Admin: 05/24/19 11:41 Dose: 0.125 mg Diltiazem HCl (Cardizem Cd -) 120 mg PO DAILY [facility] Last Admin: 05/24/19 11:41 Dose: 120 mg Donepezil HCl (Aricept -) 5 mg PO HS [facility] Last Admin: 05/23/19 23:04 Dose: 5 mg Enalapril Maleate (Vasotec -) 5 mg PO BID [facility] Last Admin: 05/24/19 11:42 Dose: 5 mg Famotidine (Famotidine) 20 mg PO BID [facility] Last Admin: 05/24/19 11:42 Dose: 20 mg Furosemide (Lasix Injection -) 80 mg IVPUSH BID@1100,2300 [facility] Stop: 05/25/19 23:01 Last Admin: 05/23/19 23:04 Dose: 80 mg Heparin Sodium (Porcine) (Heparin -) 1,000 unit IVPUSH PRN PRN PRN Reason: Heparin Last Admin: 05/22/19 10:55 Dose: 1,000 unit Heparin Sodium (Porcine) (Heparin -) 5,000 unit IVPUSH PRN PRN PRN Reason: Heparin Last Admin: 05/21/19 01:23 EDT Dose: 5,000 unit Piperacillin Sod/Tazobactam (Sod 3.375 gm/ Dextrose) 50 mls @ 100 mls/hr IVPB Q8H-IV [facility]; Protocol Last Admin: 05/24/19 11:41 Dose: 100 mls/hr Vancomycin HCl (Vancomycin (Pre-Docked)) 1,000 mg in 250 mls @ 166.667 mls/hr IVPB Q24H [facility]; Protocol Last Admin: 05/23/19 11:02 Dose: 166.667 mls/hr Heparin Sodium (Porcine) 25, (000 unit/ Sodium Chloride) 500 mls @ 20 mls/hr IV TITR [facility]; Protocol Last Admin: 05/23/19 18:28 Dose: 1,250 unit/hr, 25 mls/hr Levothyroxine Sodium (Synthroid -) 25 mcg PO DAILY@0700 [facility] Last Admin: 05/24/19 06:42 Dose: 25 mcg Metoprolol Succinate (Toprol Xl -) 50 mg PO DAILY [facility] Last Admin: 05/24/19 11:42 Dose: 50 mg Ondansetron HCl (Zofran -) 4 mg PO Q8H PRN PRN Reason: NAUSEA AND/OR VOMITING Last Admin: 05/24/19 02:57 Dose: 4 mg Potassium Chloride (K-Dur -) 40 meq PO DAILY [facility] Last Admin: 05/24/19 11:42 Dose: 40 meq - Objective Vital Signs: Vital Signs Temperature 98.7 F 05/24/19 01:57 Pulse Rate 88 05/24/19 11:41 Respiratory Rate 20 05/24/19 06:00 Blood Pressure 119/54 L 05/24/19 06:00 O2 Sat by Pulse Oximetry (%) 94 L 05/23/19 21:00 Constitutional: Yes: No Distress Eyes: Yes: Conjunctiva Clear Cardiovascular: Yes: Regular Rate and Rhythm, S1, S2 Respiratory: Yes: Rhonchi Gastrointestinal: Yes: Normal Bowel Sounds, Soft. No: Tenderness Extremities: Yes: Other (PERSISTANT ERYTHEMA/WARMTH L LE) Edema: Yes Edema: LLE: 2+, RLE: 2+ Labs: CBC, BMP 05/24/19 06:15 05/24/19 06:15 INR, PTT INR 1.24 (0.83-1.09) H 05/13/19 07:00 Assessment/Plan PNEUMONIA CELLULITIS / DVT L LE LEUKOCYTOSIS IMPROVED LACTIC ACIDOSIS RESOLVED TOXIC METABOLIC ENCEPHALOPATHY / OBS CONTINUE ZOSYN/ VANCOMYCIN
[2019-05-24] MEDS: VANCOMYCIN 1 GRAM (PRE-DOCKED) 1,000 MG/250 ML BAG IVPB SCH (12:15)
[2019-05-24] MEDS: FUROSEMIDE 40 MG/4 ML INJECTABLE VIAL IVPUSH SCH ×2 (13:00→23:15)
[2019-05-24] MEDS: HEPARIN - 25,000 UNIT in SODIUM CHLORIDE 495 ML IV SCH (17:19)
[2019-05-24] MEDS: DONEPEZIL HCL 5 MG TABLET (FP) PO SCH (21:46)
[2019-05-25] MEDS ORDERED: DEXTROSE 5%-WATER - 50 ML IVPB ONE ×3 (00:49→17:40)
[2019-05-25] MEDS ORDERED: PIPERACILLIN/TAZOBACTAM 3.375 GM VIAL IVPB ONE ×4 (00:49→17:40)
[2019-05-25] MEDS: PIPERACILLIN/TAZOB 3.375 GM 3.375 GM in DEXTROSE 5%-WATER - 50 ML IVPB SCH ×3 (00:59→18:24)
[2019-05-25 07:39] LABS: HEMATOCRIT 31.1 % (32.4-45.2); HEMOGLOBIN 10.3 GM/dL (10.7-15.3); MCHC 33.1 g/dl (32.0-36.0); MEAN CELL VOLUME 87.8 fl (80-96); MEAN PLT VOLUME 6.9 fl (7.5-11.1); PLATELET COUNT 443 K/MM3 (134-434); RBC 3.54 M/mm3 (3.60-5.2); RDW 21.3 % (11.6-15.6); WHITE BLOOD COUNT 14.5 K/mm3 (4.0-10.0)
[2019-05-25 08:11] LABS: BLOOD UREA NITROGEN 20.1 mg/dL (7-18); CREATININE 1.5 mg/dL (0.55-1.3); POTASSIUM 4.2 mmol/L (3.5-5.1)
--- NOTE | 2019-05-25 10:46 | PN ---
Progress Note (short form) - Note Progress Note: PULMONARY Breathing better but still short of breath even at rest. Vital Signs Period Temp Pulse Resp BP Sys/Barillas Pulse Ox Last 24 Hr 97.5 F-99.8 F 66-90 18-20 102-112/41-49 96 Intake & Output 05/22/19 05/23/19 05/24/19 05/25/19 23:59 23:59 23:59 23:59 Intake Total 156 906 2004 634 Output Total 800 2600 2300 300 Balance 196 1201 334 Weight 70.76 kg 68.492 kg 68.583 kg Gen: mildly tachypneic at rest Heart: RRR Lung: decreased breath sounds at the bases Abd: soft, nontender Ext: + edema CBC, BMP 05/25/19 06:50 05/25/19 06:50 Active Medications Acetaminophen (Tylenol -) 650 mg PO Q4H PRN PRN Reason: PAIN Last Admin: 05/20/19 06:10 Dose: 650 mg Albumin Human (Albumin Human 25%) 12.5 gm IVPB BID [facility] Stop: 05/25/19 22:01 Last Admin: 05/24/19 22:38 Dose: 12.5 gm Digoxin (Lanoxin -) 0.125 mg PO DAILY [facility] Last Admin: 05/24/19 11:41 Dose: 0.125 mg Diltiazem HCl (Cardizem Cd -) 120 mg PO DAILY [facility] Last Admin: 05/24/19 11:41 Dose: 120 mg Donepezil HCl (Aricept -) 5 mg PO HS [facility] Last Admin: 05/24/19 21:46 Dose: 5 mg Enalapril Maleate (Vasotec -) 5 mg PO BID [facility] Last Admin: 05/24/19 21:46 Dose: 5 mg Famotidine (Famotidine) 20 mg PO BID [facility] Last Admin: 05/24/19 21:46 Dose: 20 mg Furosemide (Lasix Injection -) 80 mg IVPUSH BID@1100,2300 [facility] Stop: 05/25/19 23:01 Last Admin: 05/24/19 23:15 Dose: 80 mg Heparin Sodium (Porcine) (Heparin -) 1,000 unit IVPUSH PRN PRN PRN Reason: Heparin Last Admin: 05/24/19 12:01 Dose: 1,000 unit Heparin Sodium (Porcine) (Heparin -) 5,000 unit IVPUSH PRN PRN PRN Reason: Heparin Last Admin: 05/21/19 01:23 EDT Dose: 5,000 unit Piperacillin Sod/Tazobactam (Sod 3.375 gm/ Dextrose) 50 mls @ 100 mls/hr IVPB Q8H-IV [facility]; Protocol Last Admin: 05/25/19 00:59 Dose: 100 mls/hr Vancomycin HCl (Vancomycin (Pre-Docked)) 1,000 mg in 250 mls @ 166.667 mls/hr IVPB Q24H [facility]; Protocol Last Admin: 05/24/19 12:15 Dose: 166.667 mls/hr Heparin Sodium (Porcine) 25, (000 unit/ Sodium Chloride) 500 mls @ 20 mls/hr IV TITR [facility]; Protocol Last Admin: 05/24/19 17:19 Dose: 1,350 unit/hr, 27 mls/hr Levothyroxine Sodium (Synthroid -) 25 mcg PO DAILY@0700 [facility] Last Admin: 05/24/19 06:42 Dose: 25 mcg Metoprolol Succinate (Toprol Xl -) 50 mg PO DAILY [facility] Last Admin: 05/24/19 11:42 Dose: 50 mg Ondansetron HCl (Zofran -) 4 mg PO Q8H PRN PRN Reason: NAUSEA AND/OR VOMITING Last Admin: 05/24/19 02:57 Dose: 4 mg Potassium Chloride (K-Dur -) 40 meq PO DAILY [facility] Last Admin: 05/24/19 11:42 Dose: 40 meq A/P Pneumonia Sepsis Lactic Acidosis Acute Kidney Injury Acute on Chronic Diastolic Heart Failure MAT LLE DVT Hyponatremia COPD Pulmonary HTN Thoracic/Abdominal Aortic Aneurysms HTN - continue lasix - monitor urine output, creatinine - daily weights - continue antibiotics - inhaled bronchodilators - rate control - continue anticoagulation - O2 to keep SpO2 >90%
[2019-05-25] MEDS: FAMOTIDINE 40 MG/5 ML ORAL SUSPENSION PO SCH ×2 (10:54→22:15)
[2019-05-25] MEDS: POTASSIUM CHLORIDE TABS 10 MEQ TABLET.ER (FP) PO SCH (10:55)
--- NOTE | 2019-05-25 10:56 | PN ---
Progress Note (short form) - Note Progress Note: s: no chest pain, palps, dizziness. Current Medications Generic Name Dose Route Start Last Admin Trade Name Freq PRN Reason Stop Dose Admin Acetaminophen 650 mg 05/14/19 13:43 05/20/19 06:10 Tylenol - PO 650 mg Q4H PRN Administration PAIN Albumin Human 12.5 gm 05/23/19 10:00 05/24/19 22:38 Albumin Human 25% IVPB 05/25/19 22:01 12.5 gm BID [facility] Administration Digoxin 0.125 mg 05/13/19 10:00 05/24/19 11:41 Lanoxin - PO 0.125 mg DAILY [facility] Administration Diltiazem HCl 120 mg 05/14/19 10:45 05/24/19 11:41 Cardizem Cd - PO 120 mg DAILY [facility] Administration Donepezil HCl 5 mg 05/23/19 22:00 05/24/19 21:46 Aricept - PO 5 mg HS [facility] Administration Enalapril Maleate 5 mg 05/22/19 22:00 05/24/19 21:46 Vasotec - PO 5 mg BID [facility] Administration Famotidine 20 mg 05/18/19 21:36 05/24/19 21:46 Famotidine PO 20 mg BID [facility] Administration Furosemide 80 mg 05/23/19 11:00 05/24/19 23:15 Lasix Injection - IVPUSH 05/25/19 23:01 80 mg BID@1100,2300 [facility] Administration Heparin Sodium (Porcine) 1,000 unit 05/20/19 15:47 05/24/19 12:01 Heparin - IVPUSH 1,000 unit PRN PRN Administration Heparin Heparin Sodium (Porcine) 5,000 unit 05/20/19 15:47 05/21/19 01:23 EDT Heparin - IVPUSH 5,000 unit PRN PRN Administration Heparin Piperacillin Sod/Tazobactam 50 mls @ 100 mls/hr 05/13/19 02:00 05/25/19 00:59 Sod 3.375 gm/ Dextrose IVPB 100 mls/hr Q8H-IV [facility] Administration Protocol Vancomycin HCl 1,000 mg in 250 mls @ 166.667 mls/hr 05/20/19 11:00 05/24/19 12:15 Vancomycin (Pre-Docked) IVPB 166.667 mls/hr Q24H [facility] Administration Protocol Heparin Sodium (Porcine) 25, 500 mls @ 20 mls/hr 05/20/19 16:00 05/24/19 17: 19 000 unit/ Sodium Chloride IV 1,350 unit/hr TITR [facility] 27 mls/hr Administration Protocol 1,000 UNIT/HR Levothyroxine Sodium 25 mcg 05/13/19 07:00 05/24/19 06:42 Synthroid - PO 25 mcg DAILY@0700 [facility] Administration Metoprolol Succinate 50 mg 05/13/19 10:00 05/24/19 11:42 Toprol Xl - PO 50 mg DAILY [facility] Administration Ondansetron HCl 4 mg 05/13/19 08:24 05/24/19 02:57 Zofran - PO 4 mg Q8H PRN Administration NAUSEA AND/OR VOMITING Potassium Chloride 40 meq 05/18/19 10:00 05/24/19 11:42 K-Dur - PO 40 meq DAILY [facility] Administration Vital Signs Period Temp Pulse Resp BP Sys/Barillas Pulse Ox Last 24 Hr 97.5 F-99.8 F 66-90 18-20 102-112/41-49 96 Constitutional: Yes: No Distress, Calm Eyes: No: Sclera Icterus HENT: No: Nasal Congestion Cardiovascular: Yes: Regular Rate and Rhythm, JVD (possible (accessory muscle ( SCM) use confounds)), S1, S2, Other (PMI non diplaced). No: Gallop, Murmur Respiratory: Yes: CTA Bilaterally (decr diffusely). No: Accessory Muscle Use, Rales, Wheezes Gastrointestinal: Yes: Normal Bowel Sounds, Soft. No: Tenderness Musculoskeletal: Yes: Other (No kyphosis) Extremities: No: Cold, Cyanosis Edema: Yes (1+ L ankle, trace R) Integumentary: No: Jaundice Neurological: Yes: Alert. No: Seizure Psychiatric: No: Agitated 05/25/19 06:50 05/25/19 06:50 Assessment/Plan Echo 04/2019: mild LVH. grossly nl LVEF (50%). grossly nl RV. mild-mod AI. tele: sr DVT: -+ DVT of LLE here, CTA no central PE, distal branches not well seen -started on UFH to watch for signs of bleeding and monitor counts--cont for now -? 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 orthostasis -was in svt in ER and also septic with PNA--? contributed to unstable hemodynamics at home -EF normal, low risk for V arrhythmia -monitor tele -no signs of ACS sepsis, pna, lactic acidosis: -abx per ID -sx's stable h/o tachycardia-induced CMP, edema, ?acute HFPEF -lvef sev reduced 02/2019, in setting of uncontrolled MAT on presentation of ? prolonged duratoin (arrhythmia is asymptomatic, pt had not had recent outpt followup) -EF normalized here on 05/06 echo -rate control as doing. -ongoing SOB ? sec to large PNA. diuresis started for ++ edema, now with unilateral edema likely sec to DVT. 05/22 possible JVD noted on exam. I/Os variable the past 2 days. wt declining overall 164-->156. labs stable. - lasix inc to 80 mg IV BID, BUN/Cr increasing - receiving IV lasix with albumin - monitor wts and UOP (singletary), labs trend Multifocal atrial tach (MAT), PSVT (short RP): -presented in SVT (? AVNRT), resolved in ER--ongoing bursts on tele -predominant rhythm is MAT which is mildly rapid -home med adherence suboptimal (dementia, frequently refuses meds from and [employer])--? better of late -no more PSVT on tele since diltiazem 120 qd added: cont dilt, metopr 50 qd, digoxin (level good). -would not be a candidate for 1c use (flecainide) given prior low EF (and hi risk for CAD in future). could use amio but carries pulm toxicity risks given extensive copd. could consider AVN ablation with PPM if cannot adequately control HRs with tolerable doses of AVN blockers. -again disc'd med adherence importance with pt, in presence of family (done repeatedly in office as well), to avoid invasive procedures HTN: -target <150/90 given orthostasis risk -meds adjusted here to incr AVN blockers -BP improved once enalapril resumed--at goals but often soft - enalapril 20 qd reduced to 5 mg bid, BP stable Possible CAD: -prior mibi 2012 reported low-risk area of (septal) ischemia and has been managed medically with no angina sx's -pt with extensive atherosclerotic aorta vascular disease -cont home bb, statin regimen needs clarification from office records. -ASA held in recent past when developed NSAID-related PUD (hi risk for recurrent bleeding) -intermediate trop elevation, possibly demand from sepsis/svt. does not appear to be acs. Thoracic and abdominal aorta aneurysms: -known ascending aorta aneurysm (4.1 cm), descending aorta aneurysm (5.2 cm), stable on recent ct 03/2019 -4.4 cm AAA, enlarged from 3.9 in 02/2018 -bp control, BB, statin as doing -would be high risk (maybe prohibitive) for open repair in any case (ascending aorta not amenable to endovascular approach) COPD, pulm HTN: -marked emphys changes on CT chest -dilated PA c/w pulm HTN -has refused home O2 repeatedly -cont suppl O2 here as doing
[2019-05-25] MEDS: ENALAPRIL MALEATE 5 MG TABLET (FP) PO SCH ×2 (11:01→22:12)
[2019-05-25] MEDS: DIGOXIN 0.125 MG TABLET (FP) PO SCH (11:01)
[2019-05-25] MEDS: FUROSEMIDE 40 MG/4 ML INJECTABLE VIAL IVPUSH SCH ×2 (11:04→22:13)
[2019-05-25] MEDS: VANCOMYCIN 1 GRAM (PRE-DOCKED) 1,000 MG/250 ML BAG IVPB SCH (11:04)
[2019-05-25] MEDS ORDERED: PT OWN MED DRAWER 7, Y5N ONE (11:07)
[2019-05-25] MEDS: ALBUMIN HUMAN 25% 12.5 GM/50 ML VIAL IVPB SCH ×2 (11:08→22:13)
--- NOTE | 2019-05-25 11:58 | PN ---
Progress Note, Physician History of Present Illness: events noted chart reviewed Still on telemetry Awake oriented 1 and did not remember me Started the Aricept tolerating the medication very well I had a lengthy conversation with the patient's daughter was very concerned about the rapid progression of the memory decreased appreciation I explained to the daughter that most probably due to toxic metabolic encephalopathy tipped the patient off with the advancement of the memory problem. - Current Medication List Current Medications: Active Medications Acetaminophen (Tylenol -) 650 mg PO Q4H PRN PRN Reason: PAIN Last Admin: 05/20/19 06:10 Dose: 650 mg Albumin Human (Albumin Human 25%) 12.5 gm IVPB BID [facility] Stop: 05/25/19 22:01 Last Admin: 05/25/19 11:08 Dose: 12.5 gm Digoxin (Lanoxin -) 0.125 mg PO DAILY [facility] Last Admin: 05/25/19 11:01 Dose: 0.125 mg Diltiazem HCl (Cardizem Cd -) 120 mg PO DAILY [facility] Last Admin: 05/25/19 10:53 Dose: 120 mg Donepezil HCl (Aricept -) 5 mg PO HS [facility] Last Admin: 05/24/19 21:46 Dose: 5 mg Enalapril Maleate (Vasotec -) 5 mg PO BID [facility] Last Admin: 05/25/19 11:01 Dose: 5 mg Famotidine (Famotidine) 20 mg PO BID [facility] Last Admin: 05/25/19 10:54 Dose: 20 mg Furosemide (Lasix Injection -) 80 mg IVPUSH BID@1100,2300 [facility] Stop: 05/25/19 23:01 Last Admin: 05/25/19 11:04 Dose: 80 mg Heparin Sodium (Porcine) (Heparin -) 1,000 unit IVPUSH PRN PRN PRN Reason: Heparin Last Admin: 05/24/19 12:01 Dose: 1,000 unit Heparin Sodium (Porcine) (Heparin -) 5,000 unit IVPUSH PRN PRN PRN Reason: Heparin Last Admin: 05/21/19 01:23 EDT Dose: 5,000 unit Piperacillin Sod/Tazobactam (Sod 3.375 gm/ Dextrose) 50 mls @ 100 mls/hr IVPB Q8H-IV [facility]; Protocol Last Admin: 05/25/19 11:03 Dose: 100 mls/hr Vancomycin HCl (Vancomycin (Pre-Docked)) 1,000 mg in 250 mls @ 166.667 mls/hr IVPB Q24H [facility]; Protocol Last Admin: 05/25/19 11:04 Dose: 166.667 mls/hr Heparin Sodium (Porcine) 25, (000 unit/ Sodium Chloride) 500 mls @ 20 mls/hr IV TITR [facility]; Protocol Last Admin: 05/24/19 17:19 Dose: 1,350 unit/hr, 27 mls/hr Levothyroxine Sodium (Synthroid -) 25 mcg PO DAILY@0700 [facility] Last Admin: 05/24/19 06:42 Dose: 25 mcg Metoprolol Succinate (Toprol Xl -) 50 mg PO DAILY [facility] Last Admin: 05/25/19 11:01 Dose: 50 mg Ondansetron HCl (Zofran -) 4 mg PO Q8H PRN PRN Reason: NAUSEA AND/OR VOMITING Last Admin: 05/24/19 02:57 Dose: 4 mg Potassium Chloride (K-Dur -) 40 meq PO DAILY [facility] Last Admin: 05/25/19 10:55 Dose: 40 meq - Objective Vital Signs: Vital Signs Temperature 99.8 F H 05/25/19 08:30 Pulse Rate 66 05/25/19 11:01 Respiratory Rate 18 05/25/19 08:30 Blood Pressure 105/41 L 05/25/19 08:30 O2 Sat by Pulse Oximetry (%) 96 05/24/19 21:00 Constitutional: Yes: Well Nourished Eyes: Yes: WNL HENT: Yes: WNL Neurological: Yes: Alert, Oriented, Confusion ...Motor Strength: WNL Labs: CBC, BMP 05/25/19 06:50 05/25/19 06:50 INR, PTT INR 1.24 (0.83-1.09) H 05/13/19 07:00 Problem List - Problems (1) Change in mental status Assessment/Plan: out of bed to chair with fall precautions. Continue Aricept for same. No need for B12 shot. Follow-up with pulmonology and ID specialist. Chest PT Code(s): R41.82 - ALTERED MENTAL STATUS, UNSPECIFIED
[2019-05-25] MEDS: HEPARIN NA (PORCINE) 5,000 UNITS/ML 1ML VIAL IVPUSH PRN (12:00)
--- NOTE | 2019-05-25 14:48 | PN ---
Progress Note, Physician Chief Complaint: patient seen and examined feeling better - Current Medication List Current Medications: Active Medications Acetaminophen (Tylenol -) 650 mg PO Q4H PRN PRN Reason: PAIN Last Admin: 05/20/19 06:10 Dose: 650 mg Albumin Human (Albumin Human 25%) 12.5 gm IVPB BID [facility] Stop: 05/25/19 22:01 Last Admin: 05/25/19 11:08 Dose: 12.5 gm Digoxin (Lanoxin -) 0.125 mg PO DAILY [facility] Last Admin: 05/25/19 11:01 Dose: 0.125 mg Diltiazem HCl (Cardizem Cd -) 120 mg PO DAILY [facility] Last Admin: 05/25/19 10:53 Dose: 120 mg Donepezil HCl (Aricept -) 5 mg PO HS [facility] Last Admin: 05/24/19 21:46 Dose: 5 mg Enalapril Maleate (Vasotec -) 5 mg PO BID [facility] Last Admin: 05/25/19 11:01 Dose: 5 mg Famotidine (Famotidine) 20 mg PO BID [facility] Last Admin: 05/25/19 10:54 Dose: 20 mg Furosemide (Lasix Injection -) 80 mg IVPUSH BID@1100,2300 [facility] Stop: 05/25/19 23:01 Last Admin: 05/25/19 11:04 Dose: 80 mg Heparin Sodium (Porcine) (Heparin -) 1,000 unit IVPUSH PRN PRN PRN Reason: Heparin Last Admin: 05/24/19 12:01 Dose: 1,000 unit Heparin Sodium (Porcine) (Heparin -) 5,000 unit IVPUSH PRN PRN PRN Reason: Heparin Last Admin: 05/21/19 01:23 EDT Dose: 5,000 unit Piperacillin Sod/Tazobactam (Sod 3.375 gm/ Dextrose) 50 mls @ 100 mls/hr IVPB Q8H-IV [facility]; Protocol Last Admin: 05/25/19 11:03 Dose: 100 mls/hr Vancomycin HCl (Vancomycin (Pre-Docked)) 1,000 mg in 250 mls @ 166.667 mls/hr IVPB Q24H [facility]; Protocol Last Admin: 05/25/19 11:04 Dose: 166.667 mls/hr Heparin Sodium (Porcine) 25, (000 unit/ Sodium Chloride) 500 mls @ 20 mls/hr IV TITR [facility]; Protocol Last Admin: 05/24/19 17:19 Dose: 1,350 unit/hr, 27 mls/hr Levothyroxine Sodium (Synthroid -) 25 mcg PO DAILY@0700 [facility] Last Admin: 05/24/19 06:42 Dose: 25 mcg Metoprolol Succinate (Toprol Xl -) 50 mg PO DAILY [facility] Last Admin: 05/25/19 11:01 Dose: 50 mg Ondansetron HCl (Zofran -) 4 mg PO Q8H PRN PRN Reason: NAUSEA AND/OR VOMITING Last Admin: 05/24/19 02:57 Dose: 4 mg Potassium Chloride (K-Dur -) 40 meq PO DAILY [facility] Last Admin: 05/25/19 10:55 Dose: 40 meq - Objective Vital Signs: Vital Signs Temperature 98.7 F 05/25/19 14:00 Pulse Rate 64 05/25/19 14:00 Respiratory Rate 20 05/25/19 14:00 Blood Pressure 108/49 L 05/25/19 14:00 O2 Sat by Pulse Oximetry (%) 96 05/24/19 21:00 Constitutional: Yes: Calm Cardiovascular: Yes: Regular Rate and Rhythm, S1, S2 Respiratory: Yes: Diminished Gastrointestinal: Yes: Normal Bowel Sounds, Soft Extremities: Yes: Erythema, Other (edema better) Labs: CBC, BMP 05/25/19 06:50 05/25/19 06:50 INR, PTT INR 1.24 (0.83-1.09) H 05/13/19 07:00 Problem List - Problems (1) Change in mental status Assessment/Plan: toxic metabolic encephalopathy- improving pna on zosyn Code(s): R41.82 - ALTERED MENTAL STATUS, UNSPECIFIED (2) Lesion of spleen Assessment/Plan: appeciate heme evaluation Code(s): D73.9 - DISEASE OF SPLEEN, UNSPECIFIED (3) Hypothyroid Assessment/Plan: tsh synthroid Code(s): E03.9 - HYPOTHYROIDISM, UNSPECIFIED (4) CAD (coronary artery disease) Assessment/Plan: ob BB no aspirin bc of previuos PUD Code(s): I25.10 - ATHSCL HEART DISEASE OF [place] CORONARY ARTERY W/O ANG PCTRS (5) Abdominal pain Assessment/Plan: recent ct scan no acute pathology noted will give zantac bid no loose bm Code(s): R10.9 - UNSPECIFIED ABDOMINAL PAIN Qualifiers: (6) Hypertension Assessment/Plan: enealpril Code(s): I10 - ESSENTIAL (PRIMARY) HYPERTENSION (7) PSVT (paroxysmal supraventricular tachycardia) Assessment/Plan: controlled on digxin and diltiazem and meotprolol Code(s): I47.1 - SUPRAVENTRICULAR TACHYCARDIA (8) CHF exacerbation Assessment/Plan: iv lasix bid 8o mg bid on enalapril and Code(s): I50.9 - HEART FAILURE, UNSPECIFIED (9) Edema of left lower extremity Assessment/Plan: LLE doppler positive for DVT on iv heparin patient with limited mobilty will get heme to consult on patient regarding duration of starting NOAC started on vancomycin for cellulitis of LLE Code(s): R60.0 - LOCALIZED EDEMA (10) Cellulitis Assessment/Plan: iv vancomycin for LLE cellulitis MRSA screen negative Code(s): L03.90 - CELLULITIS, UNSPECIFIED
--- NOTE | 2019-05-25 17:28 | PN ---
Progress Note, Physician History of Present Illness: LETHARGIC SUPINE IN BED OFFERS NO COMPLAINTS DENIES DYSPNEA/ COUGH NO C/O LEG PAIN AFEBRILE - Current Medication List Current Medications: Active Medications Acetaminophen (Tylenol -) 650 mg PO Q4H PRN PRN Reason: PAIN Last Admin: 05/20/19 06:10 Dose: 650 mg Al Hydroxide/Mg Hydroxide (Mylanta Suspension -) 30 ml PO TID [facility] Albumin Human (Albumin Human 25%) 12.5 gm IVPB BID [facility] Stop: 05/25/19 22:01 Last Admin: 05/25/19 11:08 Dose: 12.5 gm Digoxin (Lanoxin -) 0.125 mg PO DAILY [facility] Last Admin: 05/25/19 11:01 Dose: 0.125 mg Diltiazem HCl (Cardizem Cd -) 120 mg PO DAILY [facility] Last Admin: 05/25/19 10:53 Dose: 120 mg Donepezil HCl (Aricept -) 5 mg PO HS [facility] Last Admin: 05/24/19 21:46 Dose: 5 mg Enalapril Maleate (Vasotec -) 5 mg PO BID [facility] Last Admin: 05/25/19 11:01 Dose: 5 mg Famotidine (Famotidine) 20 mg PO BID [facility] Last Admin: 05/25/19 10:54 Dose: 20 mg Furosemide (Lasix Injection -) 80 mg IVPUSH BID@1100,2300 [facility] Stop: 05/25/19 23:01 Last Admin: 05/25/19 11:04 Dose: 80 mg Heparin Sodium (Porcine) (Heparin -) 1,000 unit IVPUSH PRN PRN PRN Reason: Heparin Last Admin: 05/24/19 12:01 Dose: 1,000 unit Heparin Sodium (Porcine) (Heparin -) 5,000 unit IVPUSH PRN PRN PRN Reason: Heparin Last Admin: 05/21/19 01:23 EDT Dose: 5,000 unit Piperacillin Sod/Tazobactam (Sod 3.375 gm/ Dextrose) 50 mls @ 100 mls/hr IVPB Q8H-IV [facility]; Protocol Last Admin: 05/25/19 11:03 Dose: 100 mls/hr Vancomycin HCl (Vancomycin (Pre-Docked)) 1,000 mg in 250 mls @ 166.667 mls/hr IVPB Q24H [facility]; Protocol Last Admin: 05/25/19 11:04 Dose: 166.667 mls/hr Heparin Sodium (Porcine) 25, (000 unit/ Sodium Chloride) 500 mls @ 20 mls/hr IV TITR [facility]; Protocol Last Admin: 05/24/19 17:19 Dose: 1,350 unit/hr, 27 mls/hr Levothyroxine Sodium (Synthroid -) 25 mcg PO DAILY@0700 [facility] Last Admin: 05/24/19 06:42 Dose: 25 mcg Metoprolol Succinate (Toprol Xl -) 50 mg PO DAILY [facility] Last Admin: 05/25/19 11:01 Dose: 50 mg Ondansetron HCl (Zofran -) 4 mg PO Q8H PRN PRN Reason: NAUSEA AND/OR VOMITING Last Admin: 05/24/19 02:57 Dose: 4 mg Potassium Chloride (K-Dur -) 40 meq PO DAILY [facility] Last Admin: 05/25/19 10:55 Dose: 40 meq - Objective Vital Signs: Vital Signs Temperature 98.7 F 05/25/19 14:00 Pulse Rate 64 05/25/19 14:00 Respiratory Rate 20 05/25/19 14:00 Blood Pressure 108/49 L 05/25/19 14:00 O2 Sat by Pulse Oximetry (%) 95 05/25/19 10:00 Constitutional: Yes: No Distress Cardiovascular: Yes: Regular Rate and Rhythm, S1, S2 Respiratory: Yes: CTA Bilaterally Gastrointestinal: Yes: Normal Bowel Sounds, Soft. No: Tenderness Extremities: Yes: Other (DECREASED ERYTHEMA L LE) Labs: CBC, BMP 05/25/19 06:50 05/25/19 06:50 INR, PTT INR 1.24 (0.83-1.09) H 05/13/19 07:00 Assessment/Plan PNEUMONIA CELLULITIS / DVT L LE LEUKOCYTOSIS IMPROVED LACTIC ACIDOSIS RESOLVED TOXIC METABOLIC ENCEPHALOPATHY / OBS CONTINUE ZOSYN/ VANCOMYCIN
[2019-05-25] MEDS: HEPARIN - 25,000 UNIT in SODIUM CHLORIDE 495 ML IV SCH (17:50)
[2019-05-25] MEDS: LEVOTHYROXINE NA 25 MCG TABLET (FP) PO SCH (18:24)
[2019-05-25] MEDS: MAG HYDROX/AL HYDROX/SIMETH -MYLANTA- ORAL SUSPENSION PO SCH (22:11)
[2019-05-25] MEDS: DONEPEZIL HCL 5 MG TABLET (FP) PO SCH (22:12)
--- NOTE | 2019-05-26 00:13 | PN ---
Progress Note (short form) - Note Progress Note: Patient seen and examined c/o mild shortness of breath AFVSS Cor: RSR, No murmurs, No gallops Lungs: Clear to P&A Abd: Soft, Normal bowel sounds, No organomegaly Ext:No significant edema Labs/Meds reviewed A/P 74 y/o patient with Dementia, Peripheral Neuropathy, TIA , Aneurysm (3.8cm AAA) , HTN (controlled w/ hydralazine), Hyperlipdemia, Asthma, COPD Diverticulosis, Gastritis, Hiatal Hernia, Other (hyperplastic sigmoid polyps removed 12/27), Cholelithiasis (s/p lap choly), Other (fatty liver), Rheumatoid Arthritis, Vasculitis , now with RT. lung pneumonia LLE DVT --on heparin gtt BAseline coags nl Cr --1.6 KLFTs nl Consider eliquis at discharge No e/o PE on CTA CT a/p --splenic hemangiomas
[2019-05-26] MEDS ORDERED: DEXTROSE 5%-WATER - 50 ML IVPB ONE ×3 (03:12→17:21)
[2019-05-26] MEDS ORDERED: PIPERACILLIN/TAZOBACTAM 3.375 GM VIAL IVPB ONE ×3 (03:12→17:20)
[2019-05-26] MEDS: PIPERACILLIN/TAZOB 3.375 GM 3.375 GM in DEXTROSE 5%-WATER - 50 ML IVPB SCH ×3 (03:14→17:55)
[2019-05-26] MEDS: LEVOTHYROXINE NA 25 MCG TABLET (FP) PO SCH (06:05)
[2019-05-26] MEDS: MAG HYDROX/AL HYDROX/SIMETH -MYLANTA- ORAL SUSPENSION PO SCH ×3 (06:07→22:26)
[2019-05-26 06:40] LABS: HEMATOCRIT 33.7 % (32.4-45.2); MCH 29.1 pg (25.7-33.7); MCHC 32.7 g/dl (32.0-36.0); MEAN CELL VOLUME 88.9 fl (80-96); MEAN PLT VOLUME 6.6 fl (7.5-11.1); PLATELET COUNT 415 K/MM3 (134-434); RBC 3.78 M/mm3 (3.60-5.2); RDW 21.2 % (11.6-15.6)
[2019-05-26 07:09] LABS: BLOOD UREA NITROGEN 18.6 mg/dL (7-18); CREATININE 1.6 mg/dL (0.55-1.3); POTASSIUM 4.1 mmol/L (3.5-5.1)
--- NOTE | 2019-05-26 10:11 | PN ---
Progress Note, Physician Chief Complaint: sitting up in bed No CP, NO SOB, no dizziness TELE: NSR - Current Medication List Current Medications: Active Medications Acetaminophen (Tylenol -) 650 mg PO Q4H PRN PRN Reason: PAIN Last Admin: 05/20/19 06:10 Dose: 650 mg Al Hydroxide/Mg Hydroxide (Mylanta Suspension -) 30 ml PO TID [facility] Last Admin: 05/26/19 06:07 Dose: 30 ml Digoxin (Lanoxin -) 0.125 mg PO DAILY [facility] Last Admin: 05/25/19 11:01 Dose: 0.125 mg Diltiazem HCl (Cardizem Cd -) 120 mg PO DAILY [facility] Last Admin: 05/25/19 10:53 Dose: 120 mg Donepezil HCl (Aricept -) 5 mg PO HS [facility] Last Admin: 05/25/19 22:12 Dose: 5 mg Enalapril Maleate (Vasotec -) 5 mg PO BID [facility] Last Admin: 05/25/19 22:12 Dose: Not Given Famotidine (Famotidine) 20 mg PO BID [facility] Last Admin: 05/25/19 22:15 Dose: 20 mg Heparin Sodium (Porcine) (Heparin -) 1,000 unit IVPUSH PRN PRN PRN Reason: Heparin Last Admin: 05/25/19 12:00 Dose: 1,000 unit Heparin Sodium (Porcine) (Heparin -) 5,000 unit IVPUSH PRN PRN PRN Reason: Heparin Last Admin: 05/21/19 01:23 EDT Dose: 5,000 unit Piperacillin Sod/Tazobactam (Sod 3.375 gm/ Dextrose) 50 mls @ 100 mls/hr IVPB Q8H-IV [facility]; Protocol Last Admin: 05/26/19 03:14 Dose: 100 mls/hr Vancomycin HCl (Vancomycin (Pre-Docked)) 1,000 mg in 250 mls @ 166.667 mls/hr IVPB Q24H [facility]; Protocol Last Admin: 05/25/19 11:04 Dose: 166.667 mls/hr Heparin Sodium (Porcine) 25, (000 unit/ Sodium Chloride) 500 mls @ 20 mls/hr IV TITR [facility]; Protocol Last Admin: 05/25/19 17:50 Dose: 1,450 unit/hr, 29 mls/hr Levothyroxine Sodium (Synthroid -) 25 mcg PO DAILY@0700 [facility] Last Admin: 05/26/19 06:05 Dose: 25 mcg Metoprolol Succinate (Toprol Xl -) 50 mg PO DAILY [facility] Last Admin: 05/25/19 11:01 Dose: 50 mg Ondansetron HCl (Zofran -) 4 mg PO Q8H PRN PRN Reason: NAUSEA AND/OR VOMITING Last Admin: 05/24/19 02:57 Dose: 4 mg Potassium Chloride (K-Dur -) 40 meq PO DAILY [facility] Last Admin: 05/25/19 10:55 Dose: 40 meq - Objective Vital Signs: Vital Signs Temperature 98.6 F 05/26/19 06:10 Pulse Rate 80 05/26/19 06:10 Respiratory Rate 20 05/26/19 06:10 Blood Pressure 122/48 L 05/26/19 06:10 O2 Sat by Pulse Oximetry (%) 94 L 05/25/19 23:28 Constitutional: Yes: No Distress Respiratory: Yes: Other (decreased breath sounds b/l; no active wheezing.) Gastrointestinal: Yes: Soft Edema: No Neurological: Yes: Alert, Oriented Labs: CBC, BMP 05/26/19 06:22 05/26/19 06:22 INR, PTT INR 1.24 (0.83-1.09) H 05/13/19 07:00 Assessment/Plan IMP: LLE DVT PNA/Sepsis Possible syncope in setting of above, with SVT in setting acute infection/sepsis , now resolved COPD h/o tachy CM due to MAT with EF now normalized Possible CAD (prior mild abn stress) Peptic ulcer disease (NSAIDS) Thoracic and abdominal aneurysms REC: 1. Has tolerated UFH gtts well without bleeding (h/o PUD). Can convert to oral AC. Suggest Heme Consult to help determine optimal dose/duration of NOAC. 2. Abx for PNA as per ID 3. On Dig, Dilt and Metoprolol for rate control (MAT and PSVT), now stable. Dig levels ok 4. Not on ASA for Presumed CAD (previous abnl stress MPI) due to NSAID ulcer disease 5. Outpatient f/u for chronic aneurysms.
[2019-05-26] MEDS: ONDANSETRON 4 MG TABLET PO PRN (10:17)
[2019-05-26] MEDS: POTASSIUM CHLORIDE TABS 10 MEQ TABLET.ER (FP) PO SCH (10:17)
[2019-05-26] MEDS: ENALAPRIL MALEATE 5 MG TABLET (FP) PO SCH (10:17)
[2019-05-26] MEDS: DIGOXIN 0.125 MG TABLET (FP) PO SCH (10:18)
[2019-05-26] MEDS: FAMOTIDINE 40 MG/5 ML ORAL SUSPENSION PO SCH ×2 (10:18→22:26)
[2019-05-26] MEDS: VANCOMYCIN 1 GRAM (PRE-DOCKED) 1,000 MG/250 ML BAG IVPB SCH (10:35)
--- NOTE | 2019-05-26 11:56 | PN ---
Progress Note, Physician History of Present Illness: PULMONARY ALERT,LESS DYSPNEIC,-CP - Current Medication List Current Medications: Active Medications Acetaminophen (Tylenol -) 650 mg PO Q4H PRN PRN Reason: PAIN Last Admin: 05/20/19 06:10 Dose: 650 mg Al Hydroxide/Mg Hydroxide (Mylanta Suspension -) 30 ml PO TID [facility] Last Admin: 05/26/19 06:07 Dose: 30 ml Digoxin (Lanoxin -) 0.125 mg PO DAILY [facility] Last Admin: 05/26/19 10:18 Dose: 0.125 mg Diltiazem HCl (Cardizem Cd -) 120 mg PO DAILY [facility] Last Admin: 05/26/19 10:17 Dose: 120 mg Donepezil HCl (Aricept -) 5 mg PO HS [facility] Last Admin: 05/25/19 22:12 Dose: 5 mg Enalapril Maleate (Vasotec -) 5 mg PO BID [facility] Last Admin: 05/26/19 10:17 Dose: 5 mg Famotidine (Famotidine) 20 mg PO BID [facility] Last Admin: 05/26/19 10:18 Dose: 20 mg Heparin Sodium (Porcine) (Heparin -) 1,000 unit IVPUSH PRN PRN PRN Reason: Heparin Last Admin: 05/25/19 12:00 Dose: 1,000 unit Heparin Sodium (Porcine) (Heparin -) 5,000 unit IVPUSH PRN PRN PRN Reason: Heparin Last Admin: 05/21/19 01:23 EDT Dose: 5,000 unit Piperacillin Sod/Tazobactam (Sod 3.375 gm/ Dextrose) 50 mls @ 100 mls/hr IVPB Q8H-IV [facility]; Protocol Last Admin: 05/26/19 10:18 Dose: 100 mls/hr Vancomycin HCl (Vancomycin (Pre-Docked)) 1,000 mg in 250 mls @ 166.667 mls/hr IVPB Q24H [facility]; Protocol Last Admin: 05/26/19 10:35 Dose: 166.667 mls/hr Heparin Sodium (Porcine) 25, (000 unit/ Sodium Chloride) 500 mls @ 20 mls/hr IV TITR [facility]; Protocol Last Admin: 05/25/19 17:50 Dose: 1,450 unit/hr, 29 mls/hr Levothyroxine Sodium (Synthroid -) 25 mcg PO DAILY@0700 [facility] Last Admin: 05/26/19 06:05 Dose: 25 mcg Metoprolol Succinate (Toprol Xl -) 50 mg PO DAILY [facility] Last Admin: 05/26/19 10:17 Dose: 50 mg Ondansetron HCl (Zofran -) 4 mg PO Q8H PRN PRN Reason: NAUSEA AND/OR VOMITING Last Admin: 05/26/19 10:17 Dose: 4 mg Potassium Chloride (K-Dur -) 40 meq PO DAILY [facility] Last Admin: 05/26/19 10:17 Dose: 40 meq - Objective Vital Signs: Vital Signs Temperature 98.6 F 05/26/19 06:10 Pulse Rate 80 05/26/19 10:18 Respiratory Rate 20 05/26/19 06:10 Blood Pressure 122/48 L 05/26/19 06:10 O2 Sat by Pulse Oximetry (%) 94 L 05/25/19 23:28 Constitutional: Yes: Well Nourished, Calm Eyes: Yes: WNL HENT: Yes: WNL Neck: Yes: WNL Cardiovascular: Yes: Regular Rate and Rhythm, S1, S2 Respiratory: Yes: Diminished Gastrointestinal: Yes: Normal Bowel Sounds, Soft Extremities: Yes: WNL Edema: Yes Labs: CBC, BMP 05/26/19 06:22 05/26/19 06:22 INR, PTT INR 1.24 (0.83-1.09) H 05/13/19 07:00 Assessment/Plan Problem List - Problems (1) Change in mental status Code(s): R41.82 - ALTERED MENTAL STATUS, UNSPECIFIED (2) Hypothyroid Code(s): E03.9 - HYPOTHYROIDISM, UNSPECIFIED (3) Lesion of spleen Code(s): D73.9 - DISEASE OF SPLEEN, UNSPECIFIED (4) CAD (coronary artery disease) Code(s): I25.10 - ATHSCL HEART DISEASE OF [place] CORONARY ARTERY W/O ANG PCTRS (5) CHF exacerbation Code(s): I50.9 - HEART FAILURE, UNSPECIFIED (6) Cough Code(s): R05 - COUGH (7) Dementia Code(s): F03.90 - UNSPECIFIED DEMENTIA WITHOUT BEHAVIORAL DISTURBANCE (8) Depression Code(s): F32.9 - MAJOR DEPRESSIVE DISORDER, SINGLE EPISODE, UNSPECIFIED (9) Diverticula of colon Code(s): K57.30 - DVRTCLOS OF LG INT W/O PERFORATION OR ABSCESS W/O BLEEDING (10) Failure to thrive Code(s): [id number] - Qualifiers: Failure to thrive age range: in adult Qualified Code(s): R62.7 - Adult failure to thrive (11) Falling Code(s): W19.XXXA - UNSPECIFIED FALL, INITIAL ENCOUNTER (12) Gait abnormality Code(s): R26.9 - UNSPECIFIED ABNORMALITIES OF GAIT AND MOBILITY (13) Hyperlipidemia Code(s): E78.5 - HYPERLIPIDEMIA, UNSPECIFIED (14) Hypertension Code(s): I10 - ESSENTIAL (PRIMARY) HYPERTENSION (15) Metabolic encephalopathy Code(s): G93.41 - METABOLIC ENCEPHALOPATHY (16) Rheumatoid arthritis Code(s): M06.9 - RHEUMATOID ARTHRITIS, UNSPECIFIED (17) S/P cholecystectomy Code(s): Z90.49 - ACQUIRED ABSENCE OF OTHER SPECIFIED PARTS OF DIGESTIVE TRACT (18) Community acquired pneumonia Code(s): J18.9 - PNEUMONIA, UNSPECIFIED ORGANISM RUL 19 AAA 20 COPD 21. NAVID 22. LLE DVT Assessment/Plan ABX per ID O2 as needed INHALED BRONCHODILATORS NIPPV support as needed for increased WOB Aspiration precautions Fall precautions f/u chest x-rays monitor lytes,renal function continue AC DR LOVELACE
--- NOTE | 2019-05-26 14:11 | PN ---
Progress Note, Physician Chief Complaint: patient seen and examined on iv abx for cellutlits and pna on iv heparin for left DVT - Current Medication List Current Medications: Active Medications Acetaminophen (Tylenol -) 650 mg PO Q4H PRN PRN Reason: PAIN Last Admin: 05/20/19 06:10 Dose: 650 mg Al Hydroxide/Mg Hydroxide (Mylanta Suspension -) 30 ml PO TID [facility] Last Admin: 05/26/19 06:07 Dose: 30 ml Digoxin (Lanoxin -) 0.125 mg PO DAILY [facility] Last Admin: 05/26/19 10:18 Dose: 0.125 mg Diltiazem HCl (Cardizem Cd -) 120 mg PO DAILY [facility] Last Admin: 05/26/19 10:17 Dose: 120 mg Donepezil HCl (Aricept -) 5 mg PO HS [facility] Last Admin: 05/25/19 22:12 Dose: 5 mg Enalapril Maleate (Vasotec -) 5 mg PO BID [facility] Last Admin: 05/26/19 10:17 Dose: 5 mg Famotidine (Famotidine) 20 mg PO BID [facility] Last Admin: 05/26/19 10:18 Dose: 20 mg Heparin Sodium (Porcine) (Heparin -) 1,000 unit IVPUSH PRN PRN PRN Reason: Heparin Last Admin: 05/25/19 12:00 Dose: 1,000 unit Heparin Sodium (Porcine) (Heparin -) 5,000 unit IVPUSH PRN PRN PRN Reason: Heparin Last Admin: 05/21/19 01:23 EDT Dose: 5,000 unit Piperacillin Sod/Tazobactam (Sod 3.375 gm/ Dextrose) 50 mls @ 100 mls/hr IVPB Q8H-IV [facility]; Protocol Last Admin: 05/26/19 10:18 Dose: 100 mls/hr Vancomycin HCl (Vancomycin (Pre-Docked)) 1,000 mg in 250 mls @ 166.667 mls/hr IVPB Q24H [facility]; Protocol Last Admin: 05/26/19 10:35 Dose: 166.667 mls/hr Heparin Sodium (Porcine) 25, (000 unit/ Sodium Chloride) 500 mls @ 20 mls/hr IV TITR [facility]; Protocol Last Admin: 05/25/19 17:50 Dose: 1,450 unit/hr, 29 mls/hr Levothyroxine Sodium (Synthroid -) 25 mcg PO DAILY@0700 [facility] Last Admin: 05/26/19 06:05 Dose: 25 mcg Metoprolol Succinate (Toprol Xl -) 50 mg PO DAILY [facility] Last Admin: 05/26/19 10:17 Dose: 50 mg Ondansetron HCl (Zofran -) 4 mg PO Q8H PRN PRN Reason: NAUSEA AND/OR VOMITING Last Admin: 05/26/19 10:17 Dose: 4 mg Potassium Chloride (K-Dur -) 40 meq PO DAILY [facility] Last Admin: 05/26/19 10:17 Dose: 40 meq - Objective Vital Signs: Vital Signs Temperature 98.6 F 05/26/19 11:47 Pulse Rate 88 05/26/19 11:47 Respiratory Rate 20 05/26/19 11:47 Blood Pressure 129/69 05/26/19 11:47 O2 Sat by Pulse Oximetry (%) 94 L 05/26/19 10:00 Constitutional: Yes: Calm Cardiovascular: Yes: Regular Rate and Rhythm, S1, S2 Respiratory: Yes: Diminished Gastrointestinal: Yes: Normal Bowel Sounds, Soft Extremities: Yes: Other (erythema reduced) Neurological: Yes: Alert, Oriented Labs: CBC, BMP 05/26/19 06:22 05/26/19 06:22 INR, PTT INR 1.24 (0.83-1.09) H 05/13/19 07:00 Problem List - Problems (1) Change in mental status Assessment/Plan: toxic metabolic encephalopathy- improving pna on zosyn Code(s): R41.82 - ALTERED MENTAL STATUS, UNSPECIFIED (2) Lesion of spleen Assessment/Plan: appeciate heme evaluation Code(s): D73.9 - DISEASE OF SPLEEN, UNSPECIFIED (3) Hypothyroid Assessment/Plan: tsh synthroid Code(s): E03.9 - HYPOTHYROIDISM, UNSPECIFIED (4) CAD (coronary artery disease) Assessment/Plan: ob BB no aspirin bc of previuos PUD Code(s): I25.10 - ATHSCL HEART DISEASE OF [place] CORONARY ARTERY W/O ANG PCTRS (5) Abdominal pain Assessment/Plan: recent ct scan no acute pathology noted will give zantac bid no loose bm Code(s): R10.9 - UNSPECIFIED ABDOMINAL PAIN Qualifiers: (6) Hypertension Assessment/Plan: enealpril Code(s): I10 - ESSENTIAL (PRIMARY) HYPERTENSION (7) PSVT (paroxysmal supraventricular tachycardia) Assessment/Plan: controlled on digxin and diltiazem and meotprolol Code(s): I47.1 - SUPRAVENTRICULAR TACHYCARDIA (8) CHF exacerbation Assessment/Plan: iv lasix bid 8o mg bid on enalapril and Code(s): I50.9 - HEART FAILURE, UNSPECIFIED (9) Edema of left lower extremity Assessment/Plan: LLE doppler positive for DVT on iv heparin patient with limited mobilty will get heme to consult on patient regarding duration of starting NOAC started on vancomycin for cellulitis of LLE Code(s): R60.0 - LOCALIZED EDEMA (10) Cellulitis Assessment/Plan: iv vancomycin for LLE cellulitis MRSA screen negative Code(s): L03.90 - CELLULITIS, UNSPECIFIED Assessment/Plan awaiting on heme consultation for duration of NOAC and iv abx for cellutis and pna [facility]
[2019-05-26] MEDS ORDERED: PT OWN MED DRAWER 7, Y5N ONE ×2 (15:06→21:57)
--- NOTE | 2019-05-26 16:31 | CONSULT ---
Consult - text type - Consultation Consultation Note: Renal consult for NAVID This is a 74 year old woman with history of COPD, CHF, AAA, hypertension, dementia, hypothyroidism, RA who presented with AMS and found to have lower extremity DVT, sepsis from pneumonia and now with NAVID. Baseline renal function is normal. Seen and examined at the bedside. Awake and alert, reports diffuse joint pain. No shortness of breath or chest pain. Making urine. Denies any flank pain. No N/V. Oral intake is poor. Feels weak. Has red rash on skin. PMHx: as above Allergies: As listed in EMR Family Hx: NC Social HX: NO T/A/D ROS: As per HPI, all other pertinent ros negative Home Medications Medication Instructions Recorded Amlodipine Besylate 5 mg PO DAILY 03/07/19 Digoxin [Lanoxin -] 0.125 mg PO DAILY 03/07/19 Furosemide [Lasix] 20 mg PO DAILY 03/07/19 Levothyroxine [Synthroid -] 0 mcg PO DAILY 03/07/19 Ondansetron [Zofran -] 4 mg PO PRN 03/07/19 Pantoprazole Sodium 40 mg PO DAILY 03/07/19 Albuterol 2.5/Ipratropium 0.5 1 amp NEB RQID amp 03/14/19 [Duoneb -] Azithromycin [Zithromax 250mg 250 mg PO DAILY #5 tablet 03/14/19 Tablets -] Enalapril Maleate [Vasotec -] 20 mg PO DAILY #60 tablet 03/14/19 Methotrexate [Mexate -] 20 mg PO Mo@1000 tablet 03/14/19 Metoprolol Succinate [Toprol XL -] 50 mg PO DAILY #30 tab.sr.24h 03/14/19 Mirtazapine [Remeron -] 15 mg PO HS #30 tablet 03/14/19 predniSONE [Deltasone -] 10 mg PO DAILY #100 tablet 03/14/19 Vital Signs Temperature 98.6 F 05/26/19 14:15 Pulse Rate 78 05/26/19 14:15 Respiratory Rate 20 05/26/19 14:15 Blood Pressure 105/48 L 05/26/19 14:15 O2 Sat by Pulse Oximetry (%) 94 L 05/26/19 10:00 NAD awake and alert neck supple RRR CTA soft NT/ND no LE edema, clubbing or cyanosis + erythema on chest and arm CBC, BMP 05/26/19 06:22 05/26/19 06:22 Laboratory Tests 03/10/18 05/21/19 05/23/19 06:45 06:16 05:43 BUN 8.3 17.4 Creatinine 0.5 L 1.3 Calcium 8.5 Phosphorus 2.5 Magnesium 1.5 L 05/24/19 05/26/19 06:15 06:22 BUN 19.1 H 18.6 H Creatinine 1.7 H 1.6 H Calcium Phosphorus Magnesium Current Medications Acetaminophen (Tylenol -) 650 mg PO Q4H PRN PRN Reason: PAIN Last Admin: 05/20/19 06:10 Dose: 650 mg Al Hydroxide/Mg Hydroxide (Mylanta Suspension -) 30 ml PO TID [facility] Last Admin: 05/26/19 15:22 Dose: 30 ml Digoxin (Lanoxin -) 0.125 mg PO DAILY [facility] Last Admin: 05/26/19 10:18 Dose: 0.125 mg Diltiazem HCl (Cardizem Cd -) 120 mg PO DAILY [facility] Last Admin: 05/26/19 10:17 Dose: 120 mg Donepezil HCl (Aricept -) 5 mg PO HS [facility] Last Admin: 05/25/19 22:12 Dose: 5 mg Enalapril Maleate (Vasotec -) 5 mg PO BID [facility] Last Admin: 05/26/19 10:17 Dose: 5 mg Famotidine (Famotidine) 20 mg PO BID [facility] Last Admin: 05/26/19 10:18 Dose: 20 mg Heparin Sodium (Porcine) (Heparin -) 1,000 unit IVPUSH PRN PRN PRN Reason: Heparin Last Admin: 05/25/19 12:00 Dose: 1,000 unit Heparin Sodium (Porcine) (Heparin -) 5,000 unit IVPUSH PRN PRN PRN Reason: Heparin Last Admin: 05/21/19 01:23 EDT Dose: 5,000 unit Piperacillin Sod/Tazobactam (Sod 3.375 gm/ Dextrose) 50 mls @ 100 mls/hr IVPB Q8H-IV [facility]; Protocol Last Admin: 05/26/19 10:18 Dose: 100 mls/hr Vancomycin HCl (Vancomycin (Pre-Docked)) 1,000 mg in 250 mls @ 166.667 mls/hr IVPB Q24H [facility]; Protocol Last Admin: 05/26/19 10:35 Dose: 166.667 mls/hr Heparin Sodium (Porcine) 25, (000 unit/ Sodium Chloride) 500 mls @ 20 mls/hr IV TITR [facility]; Protocol Last Admin: 05/25/19 17:50 Dose: 1,450 unit/hr, 29 mls/hr Levothyroxine Sodium (Synthroid -) 25 mcg PO DAILY@0700 [facility] Last Admin: 05/26/19 06:05 Dose: 25 mcg Metoprolol Succinate (Toprol Xl -) 50 mg PO DAILY [facility] Last Admin: 05/26/19 10:17 Dose: 50 mg Ondansetron HCl (Zofran -) 4 mg PO Q8H PRN PRN Reason: NAUSEA AND/OR VOMITING Last Admin: 05/26/19 10:17 Dose: 4 mg Potassium Chloride (K-Dur -) 40 meq PO DAILY [facility] Last Admin: 05/26/19 10:17 Dose: 40 meq 74 year old woman with history of COPD, CHF, AAA, hypertension, dementia, hypothyroidism, RA who presented with AMS and found to have lower extremity DVT , sepsis from pneumonia and now with NAVID. 1. Acute kidney injury secondary to contrast nephrtopathy vs. normotensive ATN vs. AIN vs. Vancomycin toxicity 2. Sepsis from PNA 3. Lower extremity DVT 4. Hyponatremia 5. History of hypertension Check urine studies for FeNa, FeUrea and urine eosinophils Hold Enalapril for now given renal injury Keep MAP > 65 if urine eosinophils are positive would consider changing to non-PCN antibiotic. presence of rash raises suspicion of AIN. Check Vancomycin levels, hold dose if level > 20. Todays level was 21. 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
[2019-05-26] MEDS ORDERED: SODIUM CHLORIDE 1,000 ML IV SCH (17:15)
[2019-05-26] MEDS: HEPARIN - 25,000 UNIT in SODIUM CHLORIDE 495 ML IV SCH (17:19)
[2019-05-26] MEDS: DONEPEZIL HCL 5 MG TABLET (FP) PO SCH (22:26)
[2019-05-27] MEDS ORDERED: PIPERACILLIN/TAZOBACTAM 3.375 GM VIAL IVPB ONE ×3 (00:57→16:44)
[2019-05-27] MEDS ORDERED: DEXTROSE 5%-WATER - 50 ML IVPB ONE ×3 (00:57→16:44)
[2019-05-27] MEDS: PIPERACILLIN/TAZOB 3.375 GM 3.375 GM in DEXTROSE 5%-WATER - 50 ML IVPB SCH ×3 (01:08→17:09)
[2019-05-27] MEDS ORDERED: PT OWN MED DRAWER 7, Y5N ONE ×2 (05:01→09:54)
[2019-05-27] MEDS: LEVOTHYROXINE NA 25 MCG TABLET (FP) PO SCH (06:10)
[2019-05-27] MEDS: MAG HYDROX/AL HYDROX/SIMETH 30 ML UNIT-DOSE CUP PO SCH ×3 (06:11→22:26)
[2019-05-27 07:03] LABS: BASO % 0.7 % (0-2.0); EOS % 2.4 % (0-4.5); HEMATOCRIT 27.4 % (32.4-45.2); LYMPH % 8.6 % (8-40); MCH 29.2 pg (25.7-33.7); MCHC 32.8 g/dl (32.0-36.0); MEAN CELL VOLUME 88.9 fl (80-96); MEAN PLT VOLUME 6.7 fl (7.5-11.1); MONO % 7.2 % (3.8-10.2); NEUT % 81.1 % (42.8-82.8); PLATELET COUNT 367 K/MM3 (134-434); RBC 3.09 M/mm3 (3.60-5.2); RDW 21.5 % (11.6-15.6); WHITE BLOOD COUNT 12.3 K/mm3 (4.0-10.0)
[2019-05-27 07:32] LABS: ALBUMIN 2.2 g/dl (3.4-5.0); ALK PHOS 58 U/L (45-117); ANION GAP 5 MMOL/L (8-16); BILIRUBIN,TOTAL 0.8 mg/dL (0.2-1); BLOOD UREA NITROGEN 18.1 mg/dL (7-18); CALCIUM 7.4 mg/dL (8.5-10.1); CHLORIDE 101 mmol/L (98-107); CO2 32 mmol/L (21-32); CREATININE 1.3 mg/dL (0.55-1.3); GLUCOSE,RANDOM 82 mg/dL (74-106); MAGNESIUM 1.6 mg/dL (1.8-2.4); PHOSPHOROUS 3.3 mg/dL (2.5-4.9); POTASSIUM 3.5 mmol/L (3.5-5.1); SGOT/AST 11 U/L (15-37); SGPT/ALT < 6 U/L (13-61); SODIUM 138 mmol/L (136-145); TOT PROT 5.4 g/dl (6.4-8.2)
[2019-05-27] MEDS: POTASSIUM CHLORIDE TABS 10 MEQ TABLET.ER (FP) PO SCH (10:12)
[2019-05-27] MEDS: DIGOXIN 0.125 MG TABLET (FP) PO SCH (10:12)
[2019-05-27] MEDS: FAMOTIDINE 40 MG/5 ML ORAL SUSPENSION PO SCH ×2 (10:14→22:27)
[2019-05-27] MEDS ORDERED: MAGNESIUM SULF 50% (8.12 MEQ/2 ML-1 GM VIAL) IVPB ONE (11:08)
--- NOTE | 2019-05-27 11:08 | PN ---
Progress Note (short form) - Note Progress Note: Renal follow up for NAVID Seen and examined at the bedside offers no acute complaints denies any sob, cp, abd pain, fever or chills making urine Vital Signs Temperature 98.8 F 05/27/19 06:00 Pulse Rate 84 05/27/19 10:12 Respiratory Rate 20 05/27/19 06:00 Blood Pressure 127/73 05/27/19 06:00 O2 Sat by Pulse Oximetry (%) 94 L 05/26/19 21:00 Intake & Output 05/24/19 05/25/19 05/26/19 05/27/19 23:59 23:59 23:59 23:59 Intake Total 1099 1200 1596 1023 Output Total 2300 300 Balance -4785 919 2385 1023 Weight 68.492 kg 68.583 kg NAD awake and alert neck supple RRR CTA soft NT/ND no LE edema CBC, BMP 05/27/19 06:15 05/27/19 06:15 Current Medications Acetaminophen (Tylenol -) 650 mg PO Q4H PRN PRN Reason: PAIN Last Admin: 05/20/19 06:10 Dose: 650 mg Al Hydroxide/Mg Hydroxide (Mylanta Oral Suspension -) 30 ml PO TID [facility] Last Admin: 05/27/19 06:11 Dose: Not Given Digoxin (Lanoxin -) 0.125 mg PO DAILY [facility] Last Admin: 05/27/19 10:12 Dose: 0.125 mg Diltiazem HCl (Cardizem Cd -) 120 mg PO DAILY [facility] Last Admin: 05/27/19 10:14 Dose: 120 mg Donepezil HCl (Aricept -) 5 mg PO HS [facility] Last Admin: 05/26/19 22:26 Dose: 5 mg Famotidine (Famotidine) 20 mg PO BID [facility] Last Admin: 05/27/19 10:14 Dose: 20 mg Heparin Sodium (Porcine) (Heparin -) 1,000 unit IVPUSH PRN PRN PRN Reason: Heparin Last Admin: 05/25/19 12:00 Dose: 1,000 unit Heparin Sodium (Porcine) (Heparin -) 5,000 unit IVPUSH PRN PRN PRN Reason: Heparin Last Admin: 05/21/19 01:23 EDT Dose: 5,000 unit Piperacillin Sod/Tazobactam (Sod 3.375 gm/ Dextrose) 50 mls @ 100 mls/hr IVPB Q8H-IV [facility]; Protocol Last Admin: 05/27/19 10:18 Dose: 100 mls/hr Vancomycin HCl (Vancomycin (Pre-Docked)) 1,000 mg in 250 mls @ 166.667 mls/hr IVPB Q24H [facility]; Protocol Last Admin: 05/26/19 10:35 Dose: 166.667 mls/hr Heparin Sodium (Porcine) 25, (000 unit/ Sodium Chloride) 500 mls @ 20 mls/hr IV TITR [facility]; Protocol Last Admin: 05/26/19 17:19 Dose: 1,450 unit/hr, 29 mls/hr Sodium Chloride (Normal Saline -) 1,000 mls @ 100 mls/hr IV ASDIR [facility] Last Admin: 05/26/19 17:18 Dose: 100 mls/hr Levothyroxine Sodium (Synthroid -) 25 mcg PO DAILY@0700 [facility] Last Admin: 05/27/19 06:10 Dose: 25 mcg Magnesium Sulfate (Magnesium Sulfate) 2 gm IVPB ONCE ONE Stop: 05/27/19 11:09 Metoprolol Succinate (Toprol Xl -) 50 mg PO DAILY [facility] Last Admin: 05/27/19 10:13 Dose: 50 mg Ondansetron HCl (Zofran -) 4 mg PO Q8H PRN PRN Reason: NAUSEA AND/OR VOMITING Last Admin: 05/26/19 10:17 Dose: 4 mg Potassium Chloride (K-Dur -) 40 meq PO DAILY [facility] Last Admin: 05/27/19 10:12 Dose: 40 meq AD awake and alert neck supple RRR CTA soft NT/ND no LE edema, clubbing or cyanosis + erythema on chest and arm CBC, BMP 05/26/19 06:22 05/26/19 06:22 Laboratory Tests 03/10/18 05/21/19 05/23/19 06:45 06:16 05:43 BUN 8.3 17.4 Creatinine 0.5 L 1.3 Calcium 8.5 Phosphorus 2.5 Magnesium 1.5 L 05/24/19 05/26/19 06:15 06:22 BUN 19.1 H 18.6 H Creatinine 1.7 H 1.6 H Calcium Phosphorus Magnesium Current Medications Acetaminophen (Tylenol -) 650 mg PO Q4H PRN PRN Reason: PAIN Last Admin: 05/20/19 06:10 Dose: 650 mg Al Hydroxide/Mg Hydroxide (Mylanta Suspension -) 30 ml PO TID [facility] Last Admin: 05/26/19 15:22 Dose: 30 ml Digoxin (Lanoxin -) 0.125 mg PO DAILY [facility] Last Admin: 05/26/19 10:18 Dose: 0.125 mg Diltiazem HCl (Cardizem Cd -) 120 mg PO DAILY [facility] Last Admin: 05/26/19 10:17 Dose: 120 mg Donepezil HCl (Aricept -) 5 mg PO HS [facility] Last Admin: 05/25/19 22:12 Dose: 5 mg Enalapril Maleate (Vasotec -) 5 mg PO BID [facility] Last Admin: 05/26/19 10:17 Dose: 5 mg Famotidine (Famotidine) 20 mg PO BID [facility] Last Admin: 05/26/19 10:18 Dose: 20 mg Heparin Sodium (Porcine) (Heparin -) 1,000 unit IVPUSH PRN PRN PRN Reason: Heparin Last Admin: 05/25/19 12:00 Dose: 1,000 unit Heparin Sodium (Porcine) (Heparin -) 5,000 unit IVPUSH PRN PRN PRN Reason: Heparin Last Admin: 05/21/19 01:23 EDT Dose: 5,000 unit Piperacillin Sod/Tazobactam (Sod 3.375 gm/ Dextrose) 50 mls @ 100 mls/hr IVPB Q8H-IV [facility]; Protocol Last Admin: 05/26/19 10:18 Dose: 100 mls/hr Vancomycin HCl (Vancomycin (Pre-Docked)) 1,000 mg in 250 mls @ 166.667 mls/hr IVPB Q24H [facility]; Protocol Last Admin: 05/26/19 10:35 Dose: 166.667 mls/hr Heparin Sodium (Porcine) 25, (000 unit/ Sodium Chloride) 500 mls @ 20 mls/hr IV TITR [facility]; Protocol Last Admin: 05/25/19 17:50 Dose: 1,450 unit/hr, 29 mls/hr Levothyroxine Sodium (Synthroid -) 25 mcg PO DAILY@0700 [facility] Last Admin: 05/26/19 06:05 Dose: 25 mcg Metoprolol Succinate (Toprol Xl -) 50 mg PO DAILY [facility] Last Admin: 05/26/19 10:17 Dose: 50 mg Ondansetron HCl (Zofran -) 4 mg PO Q8H PRN PRN Reason: NAUSEA AND/OR VOMITING Last Admin: 05/26/19 10:17 Dose: 4 mg Potassium Chloride (K-Dur -) 40 meq PO DAILY [facility] Last Admin: 05/26/19 10:17 Dose: 40 meq 74 year old woman with history of COPD, CHF, AAA, hypertension, dementia, hypothyroidism, RA who presented with AMS and found to have lower extremity DVT , sepsis from pneumonia and now with NAVID. 1. Acute kidney injury secondary to contrast nephrtopathy vs. normotensive ATN vs. AIN vs. Vancomycin toxicity 2. Sepsis from PNA 3. Lower extremity DVT 4. Hyponatremia 5. History of hypertension Renal function is improved today Urine studies pending Renal US peformed, results pending Hold Enalapril for now given renal injury can maintain on same antibiotics for now Keep MAP > 65 Vanco level was 19 today Continue IVF for addtional 12-18 hours Trend renal function and electrolytes daily Avoid further IV contrast and nephrotoxins Thank you Kye Church DO
--- NOTE | 2019-05-27 11:14 | PN ---
Progress Note (short form) - Note Progress Note: s: no chest pain, palps, dizziness. Current Medications Generic Name Dose Route Start Last Admin Trade Name Freq PRN Reason Stop Dose Admin Acetaminophen 650 mg 05/14/19 13:43 05/20/19 06:10 Tylenol - PO 650 mg Q4H PRN Administration PAIN Al Hydroxide/Mg Hydroxide 30 ml 05/26/19 22:01 05/27/19 06:11 Mylanta Oral Suspension - PO Not Given TID [facility] Digoxin 0.125 mg 05/13/19 10:00 05/27/19 10:12 Lanoxin - PO 0.125 mg DAILY [facility] Administration Diltiazem HCl 120 mg 05/14/19 10:45 05/27/19 10:14 Cardizem Cd - PO 120 mg DAILY [facility] Administration Donepezil HCl 5 mg 05/23/19 22:00 05/26/19 22:26 Aricept - PO 5 mg HS [facility] Administration Famotidine 20 mg 05/18/19 21:36 05/27/19 10:14 Famotidine PO 20 mg BID [facility] Administration Heparin Sodium (Porcine) 1,000 unit 05/20/19 15:47 05/25/19 12:00 Heparin - IVPUSH 1,000 unit PRN PRN Administration Heparin Heparin Sodium (Porcine) 5,000 unit 05/20/19 15:47 05/21/19 01:23 EDT Heparin - IVPUSH 5,000 unit PRN PRN Administration Heparin Piperacillin Sod/Tazobactam 50 mls @ 100 mls/hr 05/13/19 02:00 05/27/19 10:18 Sod 3.375 gm/ Dextrose IVPB 100 mls/hr Q8H-IV [facility] Administration Protocol Vancomycin HCl 1,000 mg in 250 mls @ 166.667 mls/hr 05/20/19 11:00 05/26/19 10:35 Vancomycin (Pre-Docked) IVPB 166.667 mls/hr Q24H [facility] Administration Protocol Heparin Sodium (Porcine) 25, 500 mls @ 20 mls/hr 05/20/19 16:00 05/26/19 17: 19 000 unit/ Sodium Chloride IV 1,450 unit/hr TITR [facility] 29 mls/hr Administration Protocol 1,000 UNIT/HR Sodium Chloride 1,000 mls @ 100 mls/hr 05/26/19 17:15 05/26/19 17:18 Normal Saline - IV 05/27/19 23:59 100 mls/hr ASDIR [facility] Administration Levothyroxine Sodium 25 mcg 05/13/19 07:00 05/27/19 06:10 Synthroid - PO 25 mcg DAILY@0700 [facility] Administration Magnesium Sulfate 2 gm 05/27/19 11:08 Magnesium Sulfate IVPB 05/27/19 11:09 ONCE ONE Metoprolol Succinate 50 mg 05/13/19 10:00 05/27/19 10:13 Toprol Xl - PO 50 mg DAILY [facility] Administration Ondansetron HCl 4 mg 05/13/19 08:24 05/26/19 10:17 Zofran - PO 4 mg Q8H PRN Administration NAUSEA AND/OR VOMITING Potassium Chloride 40 meq 05/18/19 10:00 05/27/19 10:12 K-Dur - PO 40 meq DAILY [facility] Administration Vital Signs Period Temp Pulse Resp BP Sys/Barillas Pulse Ox Last 24 Hr 98.6 F-99.1 F 75-88 20-22 105-129/47-73 94 Constitutional: Yes: No Distress, Calm Eyes: No: Sclera Icterus HENT: No: Nasal Congestion Cardiovascular: Yes: Regular Rate and Rhythm, JVD (possible (accessory muscle ( SCM) use confounds)), S1, S2, Other (PMI non diplaced). No: Gallop, Murmur Respiratory: Yes: CTA Bilaterally (decr diffusely). No: Accessory Muscle Use, Rales, Wheezes Gastrointestinal: Yes: Normal Bowel Sounds, Soft. No: Tenderness Musculoskeletal: Yes: Other (No kyphosis) Extremities: No: Cold, Cyanosis Edema: Yes trace Integumentary: No: Jaundice Neurological: Yes: Alert. No: Seizure Psychiatric: No: Agitated CBC, BMP 05/27/19 06:15 05/27/19 06:15 Assessment/Plan Echo 04/2019: mild LVH. grossly nl LVEF (50%). grossly nl RV. mild-mod AI. 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 Has tolerated UFH gtts well without bleeding (h/o PUD). Can convert to oral AC. Suggest Heme Consult to help determine optimal dose/duration of NOAC. 2. Abx for PNA as per ID 3. On Dig, Dilt and Metoprolol for rate control (MAT and PSVT), now stable. Dig levels ok 4. Not on ASA for Presumed CAD (previous abnl stress MPI) due to NSAID ulcer disease 5. Outpatient f/u for chronic aneurysms.
--- NOTE | 2019-05-27 11:21 | PN ---
Progress Note, Physician Chief Complaint: awake alert feeling better notes reviewed - Current Medication List Current Medications: Active Medications Acetaminophen (Tylenol -) 650 mg PO Q4H PRN PRN Reason: PAIN Last Admin: 05/20/19 06:10 Dose: 650 mg Al Hydroxide/Mg Hydroxide (Mylanta Oral Suspension -) 30 ml PO TID [facility] Last Admin: 05/27/19 06:11 Dose: Not Given Apixaban (Eliquis -) 2.5 mg PO BID [facility] Digoxin (Lanoxin -) 0.125 mg PO DAILY [facility] Last Admin: 05/27/19 10:12 Dose: 0.125 mg Diltiazem HCl (Cardizem Cd -) 120 mg PO DAILY [facility] Last Admin: 05/27/19 10:14 Dose: 120 mg Donepezil HCl (Aricept -) 5 mg PO HS [facility] Last Admin: 05/26/19 22:26 Dose: 5 mg Famotidine (Famotidine) 20 mg PO BID [facility] Last Admin: 05/27/19 10:14 Dose: 20 mg Piperacillin Sod/Tazobactam (Sod 3.375 gm/ Dextrose) 50 mls @ 100 mls/hr IVPB Q8H-IV [facility]; Protocol Last Admin: 05/27/19 10:18 Dose: 100 mls/hr Vancomycin HCl (Vancomycin (Pre-Docked)) 1,000 mg in 250 mls @ 166.667 mls/hr IVPB Q24H [facility]; Protocol Last Admin: 05/26/19 10:35 Dose: 166.667 mls/hr Levothyroxine Sodium (Synthroid -) 25 mcg PO DAILY@0700 [facility] Last Admin: 05/27/19 06:10 Dose: 25 mcg Metoprolol Succinate (Toprol Xl -) 50 mg PO DAILY [facility] Last Admin: 05/27/19 10:13 Dose: 50 mg Ondansetron HCl (Zofran -) 4 mg PO Q8H PRN PRN Reason: NAUSEA AND/OR VOMITING Last Admin: 05/26/19 10:17 Dose: 4 mg Potassium Chloride (K-Dur -) 40 meq PO DAILY [facility] Last Admin: 05/27/19 10:12 Dose: 40 meq - Objective Vital Signs: Vital Signs Temperature 98.8 F 05/27/19 06:00 Pulse Rate 84 05/27/19 10:12 Respiratory Rate 20 05/27/19 06:00 Blood Pressure 127/73 05/27/19 06:00 O2 Sat by Pulse Oximetry (%) 94 L 05/26/19 21:00 Constitutional: Yes: Mild Distress Cardiovascular: Yes: Pulse Irregular Respiratory: Yes: WNL Gastrointestinal: Yes: Soft Genitourinary: Yes: Incontinence Musculoskeletal: Yes: Muscle Weakness Extremities: Yes: Erythema Edema: Yes Edema: LLE: Trace, RLE: Trace Peripheral Pulses WNL: Yes Integumentary: Yes: Erythema, Venous Stasis Changes Wound/Incision: Yes: Open to air Neurological: Yes: Pre-Existing Deficit, Weakness ...Motor Strength: LLE, RLE Psychiatric: Yes: WNL Labs: CBC, BMP 05/27/19 06:15 05/27/19 06:15 INR, PTT INR 1.24 (0.83-1.09) H 05/13/19 07:00 Problem List - Problems (1) Change in mental status Code(s): R41.82 - ALTERED MENTAL STATUS, UNSPECIFIED (2) Community acquired pneumonia Code(s): J18.9 - PNEUMONIA, UNSPECIFIED ORGANISM (3) Edema of left lower extremity Code(s): R60.0 - LOCALIZED EDEMA (4) Hypothyroid Code(s): E03.9 - HYPOTHYROIDISM, UNSPECIFIED (5) PSVT (paroxysmal supraventricular tachycardia) Code(s): I47.1 - SUPRAVENTRICULAR TACHYCARDIA Assessment/Plan IV ABX CONTINUED NEBS/02 SUPPORT PULM/CARDIO EVAL APPRECIATED ON TELE MONITORING CAN DC OOB TO CHAIR /PT DVT STOP HEPARIN ON ELIQUIS NOW
[2019-05-27] MEDS: VANCOMYCIN 1 GRAM (PRE-DOCKED) 1,000 MG/250 ML BAG IVPB SCH (12:05)
[2019-05-27] MEDS: APIXABAN 2.5 MG TABLET PO SCH ×2 (12:07→22:27)
--- NOTE | 2019-05-27 12:23 | PN ---
Progress Note (short form) - Note Progress Note: Resting in NAD. Breathing feels better. No acute events overnight. Intake & Output 05/24/19 05/25/19 05/26/19 05/27/19 23:59 23:59 23:59 23:59 Intake Total 1099 1200 1596 1023 Output Total 2300 300 Balance -4920 300 2006 1023 Weight 151 lb 151 lb 3.2 oz Last Vital Signs Temp Pulse Resp BP Pulse Ox 98.8 F 84 20 127/73 94 L 05/27/19 06:00 05/27/19 10:12 05/27/19 06:00 05/27/19 06:00 05/26/19 21:00 Active Medications Acetaminophen (Tylenol -) 650 mg PO Q4H PRN PRN Reason: PAIN Last Admin: 05/20/19 06:10 Dose: 650 mg Al Hydroxide/Mg Hydroxide (Mylanta Oral Suspension -) 30 ml PO TID [facility] Last Admin: 05/27/19 06:11 Dose: Not Given Apixaban (Eliquis -) 2.5 mg PO BID [facility] Last Admin: 05/27/19 12:07 Dose: 2.5 mg Digoxin (Lanoxin -) 0.125 mg PO DAILY [facility] Last Admin: 05/27/19 10:12 Dose: 0.125 mg Diltiazem HCl (Cardizem Cd -) 120 mg PO DAILY [facility] Last Admin: 05/27/19 10:14 Dose: 120 mg Donepezil HCl (Aricept -) 5 mg PO HS [facility] Last Admin: 05/26/19 22:26 Dose: 5 mg Famotidine (Famotidine) 20 mg PO BID [facility] Last Admin: 05/27/19 10:14 Dose: 20 mg Piperacillin Sod/Tazobactam (Sod 3.375 gm/ Dextrose) 50 mls @ 100 mls/hr IVPB Q8H-IV [facility]; Protocol Last Admin: 05/27/19 10:18 Dose: 100 mls/hr Vancomycin HCl (Vancomycin (Pre-Docked)) 1,000 mg in 250 mls @ 166.667 mls/hr IVPB Q24H [facility]; Protocol Last Admin: 05/27/19 12:05 Dose: 166.667 mls/hr Levothyroxine Sodium (Synthroid -) 25 mcg PO DAILY@0700 [facility] Last Admin: 05/27/19 06:10 Dose: 25 mcg Metoprolol Succinate (Toprol Xl -) 50 mg PO DAILY [facility] Last Admin: 05/27/19 10:13 Dose: 50 mg Ondansetron HCl (Zofran -) 4 mg PO Q8H PRN PRN Reason: NAUSEA AND/OR VOMITING Last Admin: 05/26/19 10:17 Dose: 4 mg Potassium Chloride (K-Dur -) 40 meq PO DAILY [facility] Last Admin: 05/27/19 10:12 Dose: 40 meq Constitutional: Yes: NAD Eyes: Yes: WNL HENT: Yes: WNL Neck: Yes: WNL Cardiovascular: Yes: Regular Rate and Rhythm, S1, S2 Respiratory: Yes: Diminished Gastrointestinal: Yes: Normal Bowel Sounds, Soft Extremities: Yes: WNL Edema: Yes Labs: Laboratory Results - last 24 hr 05/26/19 05/27/19 05/27/19 15:15 06:15 06:15 WBC RBC Hgb Hct MCV MCH MCHC RDW Plt Count MPV Absolute Neuts (auto) Neutrophils % Lymphocytes % Monocytes % Eosinophils % Basophils % Nucleated RBC % PTT (Actin FS) 51.9 H Sodium Potassium Chloride Carbon Dioxide Anion Gap BUN Creatinine Est GFR (CKD-EPI)AfAm Est GFR (CKD-EPI)NonAf Random Glucose Calcium Phosphorus Magnesium Total Bilirubin AST ALT Alkaline Phosphatase Total Protein Albumin Stool Occult Blood Negative Random Vancomycin 19.6 05/27/19 05/27/19 06:15 06:15 WBC 12.3 H RBC 3.09 L Hgb 9.0 L Hct 27.4 L D MCV 88.9 MCH 29.2 MCHC 32.8 RDW 21.5 H Plt Count 367 MPV 6.7 L Absolute Neuts (auto) 10.0 H Neutrophils % 81.1 Lymphocytes % 8.6 Monocytes % 7.2 Eosinophils % 2.4 D Basophils % 0.7 Nucleated RBC % 0 PTT (Actin FS) Sodium 138 Potassium 3.5 Chloride 101 Carbon Dioxide 32 Anion Gap 5 L BUN 18.1 H Creatinine 1.3 Est GFR (CKD-EPI)AfAm 47.13 Est GFR (CKD-EPI)NonAf 40.67 Random Glucose 82 Calcium 7.4 L Phosphorus 3.3 Magnesium 1.6 L Total Bilirubin 0.8 AST 11 L ALT < 6 L Alkaline Phosphatase 58 Total Protein 5.4 L Albumin 2.2 L Stool Occult Blood Random Vancomycin Assessment/Plan Problem List - Problems (1) Change in mental status Code(s): R41.82 - ALTERED MENTAL STATUS, UNSPECIFIED (2) Hypothyroid Code(s): E03.9 - HYPOTHYROIDISM, UNSPECIFIED (3) Lesion of spleen Code(s): D73.9 - DISEASE OF SPLEEN, UNSPECIFIED (4) CAD (coronary artery disease) Code(s): I25.10 - ATHSCL HEART DISEASE OF [place] CORONARY ARTERY W/O ANG PCTRS (5) CHF exacerbation Code(s): I50.9 - HEART FAILURE, UNSPECIFIED (6) Cough Code(s): R05 - COUGH (7) Dementia Code(s): F03.90 - UNSPECIFIED DEMENTIA WITHOUT BEHAVIORAL DISTURBANCE (8) Depression Code(s): F32.9 - MAJOR DEPRESSIVE DISORDER, SINGLE EPISODE, UNSPECIFIED (9) Diverticula of colon Code(s): K57.30 - DVRTCLOS OF LG INT W/O PERFORATION OR ABSCESS W/O BLEEDING (10) Failure to thrive Code(s): OPC1008 - Qualifiers: Failure to thrive age range: in adult Qualified Code(s): R62.7 - Adult failure to thrive (11) Falling Code(s): W19.XXXA - UNSPECIFIED FALL, INITIAL ENCOUNTER (12) Gait abnormality Code(s): R26.9 - UNSPECIFIED ABNORMALITIES OF GAIT AND MOBILITY (13) Hyperlipidemia Code(s): E78.5 - HYPERLIPIDEMIA, UNSPECIFIED (14) Hypertension Code(s): I10 - ESSENTIAL (PRIMARY) HYPERTENSION (15) Metabolic encephalopathy Code(s): G93.41 - METABOLIC ENCEPHALOPATHY (16) Rheumatoid arthritis Code(s): M06.9 - RHEUMATOID ARTHRITIS, UNSPECIFIED (17) S/P cholecystectomy Code(s): Z90.49 - ACQUIRED ABSENCE OF OTHER SPECIFIED PARTS OF DIGESTIVE TRACT (18) Community acquired pneumonia Code(s): J18.9 - PNEUMONIA, UNSPECIFIED ORGANISM RUL (19) AAA (20) COPD (21) NAVID (22) LLE DVT Assessment/Plan ABX per ID O2 as needed BD TX PRN Aspiration precautions Fall precautions Maureen Baugh Problem List - Problems (1) Change in mental status Code(s): R41.82 - ALTERED MENTAL STATUS, UNSPECIFIED (2) Hypothyroid Code(s): E03.9 - HYPOTHYROIDISM, UNSPECIFIED (3) Lesion of spleen Code(s): D73.9 - DISEASE OF SPLEEN, UNSPECIFIED (4) CAD (coronary artery disease) Code(s): I25.10 - ATHSCL HEART DISEASE OF [place] CORONARY ARTERY W/O ANG PCTRS (5) CHF exacerbation Code(s): I50.9 - HEART FAILURE, UNSPECIFIED (6) Cough Code(s): R05 - COUGH (7) Dementia Code(s): F03.90 - UNSPECIFIED DEMENTIA WITHOUT BEHAVIORAL DISTURBANCE (8) Depression Code(s): F32.9 - MAJOR DEPRESSIVE DISORDER, SINGLE EPISODE, UNSPECIFIED (9) Diverticula of colon Code(s): K57.30 - DVRTCLOS OF LG INT W/O PERFORATION OR ABSCESS W/O BLEEDING (10) Failure to thrive Code(s): [id number] - Qualifiers: Failure to thrive age range: in adult Qualified Code(s): R62.7 - Adult failure to thrive (11) Falling Code(s): W19.XXXA - UNSPECIFIED FALL, INITIAL ENCOUNTER (12) Gait abnormality Code(s): R26.9 - UNSPECIFIED ABNORMALITIES OF GAIT AND MOBILITY (13) Hyperlipidemia Code(s): E78.5 - HYPERLIPIDEMIA, UNSPECIFIED (14) Hypertension Code(s): I10 - ESSENTIAL (PRIMARY) HYPERTENSION (15) Metabolic encephalopathy Code(s): G93.41 - METABOLIC ENCEPHALOPATHY (16) Rheumatoid arthritis Code(s): M06.9 - RHEUMATOID ARTHRITIS, UNSPECIFIED (17) S/P cholecystectomy Code(s): Z90.49 - ACQUIRED ABSENCE OF OTHER SPECIFIED PARTS OF DIGESTIVE TRACT (18) Community acquired pneumonia Code(s): J18.9 - PNEUMONIA, UNSPECIFIED ORGANISM
[2019-05-27] MEDS: ACETAMINOPHEN 325 MG TABLET (FP) PO PRN (22:26)
[2019-05-27] MEDS: DONEPEZIL HCL 5 MG TABLET (FP) PO SCH (22:27)
[2019-05-28] MEDS ORDERED: PIPERACILLIN/TAZOBACTAM 3.375 GM VIAL IVPB ONE ×3 (00:40→17:02)
[2019-05-28] MEDS ORDERED: DEXTROSE 5%-WATER - 50 ML IVPB ONE ×2 (00:41→08:43)
[2019-05-28] MEDS: PIPERACILLIN/TAZOB 3.375 GM 3.375 GM in DEXTROSE 5%-WATER - 50 ML IVPB SCH ×3 (00:58→17:13)
[2019-05-28] MEDS: LEVOTHYROXINE NA 25 MCG TABLET (FP) PO SCH (06:26)
[2019-05-28] MEDS: MAG HYDROX/AL HYDROX/SIMETH 30 ML UNIT-DOSE CUP PO SCH ×3 (06:29→21:31)
[2019-05-28 07:40] LABS: BASO % 0.8 % (0-2.0); EOS % 2.4 % (0-4.5); LYMPH % 9.1 % (8-40); MCH 29.1 pg (25.7-33.7); MCHC 32.5 g/dl (32.0-36.0); MEAN CELL VOLUME 89.7 fl (80-96); MONO % 8.8 % (3.8-10.2); NEUT % 78.9 % (42.8-82.8); PLATELET COUNT 438 K/MM3 (134-434); RDW 21.9 % (11.6-15.6); WHITE BLOOD COUNT 14.2 K/mm3 (4.0-10.0)
[2019-05-28 08:01] LABS: CALCIUM 8.9 mg/dL (8.5-10.1); CREATININE 1.4 mg/dL (0.55-1.3); MAGNESIUM 2.7 mg/dL (1.8-2.4); PHOSPHOROUS 3.6 mg/dL (2.5-4.9); POTASSIUM 4.9 mmol/L (3.5-5.1)
[2019-05-28] MEDS: ONDANSETRON 4 MG TABLET PO PRN (09:38)
--- NOTE | 2019-05-28 10:23 | PN ---
Progress Note (short form) - Note Progress Note: Renal follow up for NAVID Seen and examined at the bedside offers no acute complaints denies any sob, cp, abd pain, fever or chills making urine, no flank pain Vital Signs Temperature 97.6 F 05/28/19 05:00 Pulse Rate 71 05/28/19 05:00 Respiratory Rate 20 05/28/19 05:00 Blood Pressure 136/53 L 05/28/19 05:00 O2 Sat by Pulse Oximetry (%) 95 05/27/19 20:57 Intake & Output 05/25/19 05/26/19 05/27/19 05/28/19 23:59 23:59 23:59 23:59 Intake Total 1200 1596 1233 50 Output Total 300 Balance 900 1596 1233 50 Weight 68.583 kg NAD awake and alert neck supple RRR CTA soft NT/ND no LE edema CBC, BMP 05/28/19 06:55 05/28/19 06:35 Current Medications Acetaminophen (Tylenol -) 650 mg PO Q4H PRN PRN Reason: PAIN Last Admin: 05/27/19 22:26 Dose: 650 mg Al Hydroxide/Mg Hydroxide (Mylanta Oral Suspension -) 30 ml PO TID [facility] Last Admin: 05/28/19 06:29 Dose: Not Given Apixaban (Eliquis -) 2.5 mg PO BID [facility] Last Admin: 05/27/19 22:27 Dose: 2.5 mg Digoxin (Lanoxin -) 0.125 mg PO DAILY [facility] Last Admin: 05/27/19 10:12 Dose: 0.125 mg Diltiazem HCl (Cardizem Cd -) 120 mg PO DAILY [facility] Last Admin: 05/27/19 10:14 Dose: 120 mg Donepezil HCl (Aricept -) 5 mg PO HS [facility] Last Admin: 05/27/19 22:27 Dose: 5 mg Famotidine (Famotidine) 20 mg PO BID [facility] Last Admin: 05/27/19 22:27 Dose: 20 mg Piperacillin Sod/Tazobactam (Sod 3.375 gm/ Dextrose) 50 mls @ 100 mls/hr IVPB Q8H-IV [facility]; Protocol Last Admin: 05/28/19 00:58 Dose: 100 mls/hr Vancomycin HCl (Vancomycin (Pre-Docked)) 1,000 mg in 250 mls @ 166.667 mls/hr IVPB Q24H [facility]; Protocol Last Admin: 05/27/19 12:05 Dose: 166.667 mls/hr Levothyroxine Sodium (Synthroid -) 25 mcg PO DAILY@0700 [facility] Last Admin: 05/28/19 06:26 Dose: 25 mcg Metoprolol Succinate (Toprol Xl -) 50 mg PO DAILY [facility] Last Admin: 05/27/19 10:13 Dose: 50 mg Ondansetron HCl (Zofran -) 4 mg PO Q8H PRN PRN Reason: NAUSEA AND/OR VOMITING Last Admin: 05/28/19 09:38 Dose: 4 mg Potassium Chloride (K-Dur -) 40 meq PO DAILY [facility] Last Admin: 05/27/19 10:12 Dose: 40 meq 74 year old woman with history of COPD, CHF, AAA, hypertension, dementia, hypothyroidism, RA who presented with AMS and found to have lower extremity DVT , sepsis from pneumonia and now with NAVID. 1. Acute kidney injury secondary to contrast nephrtopathy vs. normotensive ATN vs. AIN vs. Vancomycin toxicity 2. Sepsis from PNA 3. Lower extremity DVT 4. Hyponatremia 5. History of hypertension Renal function is improved but not yet at baseline Urine studies pending Renal US peformed, results pending Hold Enalapril for now given renal injury can maintain on same antibiotics for now Keep MAP > 65 Check vanco level in AM trend renal function off IVF Trend renal function and electrolytes daily Avoid further IV contrast and nephrotoxins Thank you Kye Church DO
[2019-05-28] MEDS: DIGOXIN 0.125 MG TABLET (FP) PO SCH (10:28)
[2019-05-28] MEDS: APIXABAN 2.5 MG TABLET PO SCH ×2 (10:28→21:30)
[2019-05-28] MEDS: POTASSIUM CHLORIDE TABS 10 MEQ TABLET.ER (FP) PO SCH (10:29)
--- NOTE | 2019-05-28 10:35 | PN ---
Progress Note (short form) - Note Progress Note: s: no chest pain, palps, dizziness. Current Medications Generic Name Dose Route Start Last Admin Trade Name Freq PRN Reason Stop Dose Admin Acetaminophen 650 mg 05/14/19 13:43 05/27/19 22:26 Tylenol - PO 650 mg Q4H PRN Administration PAIN Al Hydroxide/Mg Hydroxide 30 ml 05/26/19 22:01 05/28/19 06:29 Mylanta Oral Suspension - PO Not Given TID [facility] Apixaban 2.5 mg 05/27/19 11:30 05/28/19 10:28 Eliquis - PO 2.5 mg BID [facility] Administration Digoxin 0.125 mg 05/13/19 10:00 05/28/19 10:28 Lanoxin - PO 0.125 mg DAILY [facility] Administration Diltiazem HCl 120 mg 05/14/19 10:45 05/28/19 10:28 Cardizem Cd - PO 120 mg DAILY [facility] Administration Donepezil HCl 5 mg 05/23/19 22:00 05/27/19 22:27 Aricept - PO 5 mg HS [facility] Administration Famotidine 20 mg 05/18/19 21:36 05/27/19 22:27 Famotidine PO 20 mg BID [facility] Administration Piperacillin Sod/Tazobactam 50 mls @ 100 mls/hr 05/13/19 02:00 05/28/19 10:30 Sod 3.375 gm/ Dextrose IVPB 100 mls/hr Q8H-IV [facility] Administration Protocol Vancomycin HCl 1,000 mg in 250 mls @ 166.667 mls/hr 05/20/19 11:00 05/27/19 12:05 Vancomycin (Pre-Docked) IVPB 166.667 mls/hr Q24H [facility] Administration Protocol Levothyroxine Sodium 25 mcg 05/13/19 07:00 05/28/19 06:26 Synthroid - PO 25 mcg DAILY@0700 [facility] Administration Metoprolol Succinate 50 mg 05/13/19 10:00 05/28/19 10:29 Toprol Xl - PO 50 mg DAILY [facility] Administration Ondansetron HCl 4 mg 05/13/19 08:24 05/28/19 09:38 Zofran - PO 4 mg Q8H PRN Administration NAUSEA AND/OR VOMITING Potassium Chloride 40 meq 05/18/19 10:00 05/28/19 10:29 K-Dur - PO 40 meq DAILY [facility] Administration Vital Signs Period Temp Pulse Resp BP Sys/[place]illas Pulse Ox Last 24 Hr 97.6 F-99.1 F 70-85 20-20 110-136/42-68 95 Constitutional: Yes: No Distress, Calm Eyes: No: Sclera Icterus HENT: No: Nasal Congestion Cardiovascular: Yes: Regular Rate and Rhythm, JVD (possible (accessory muscle ( SCM) use confounds)), S1, S2, Other (PMI non diplaced). No: Gallop, Murmur Respiratory: Yes: CTA Bilaterally (decr diffusely). No: Accessory Muscle Use, Rales, Wheezes Gastrointestinal: Yes: Normal Bowel Sounds, Soft. No: Tenderness Musculoskeletal: Yes: Other (No kyphosis) Extremities: No: Cold, Cyanosis Edema: Yes trace Integumentary: No: Jaundice Neurological: Yes: Alert. No: Seizure Psychiatric: No: Agitated CBC, BMP 05/28/19 06:55 05/28/19 06:35 Assessment/Plan Echo 04/2019: mild LVH. grossly nl LVEF (50%). grossly nl RV. mild-mod AI. 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 Has tolerated UFH gtts well without bleeding (h/o PUD). Can convert to oral AC. Suggest Heme Consult to help determine optimal dose/duration of NOAC. 2. Abx per ID. 3. On Dig, Dilt and Metoprolol for rate control (MAT and PSVT), now stable. Dig levels ok 4. Not on ASA for Presumed CAD (previous abnl stress MPI) due to NSAID ulcer disease 5. Outpatient f/u for chronic aneurysms.
[2019-05-28] MEDS: VANCOMYCIN 1 GRAM (PRE-DOCKED) 1,000 MG/250 ML BAG IVPB SCH (11:01)
--- NOTE | 2019-05-28 11:18 | PN ---
Progress Note (short form) - Note Progress Note: Resting in NAD. Breathing feels better. No acute events overnight. Intake & Output 05/25/19 05/26/19 05/27/19 05/28/19 23:59 23:59 23:59 23:59 Intake Total 1200 1596 1233 50 Output Total 300 Balance 900 1596 1233 50 Weight 151 lb 3.2 oz Last Vital Signs Temp Pulse Resp BP Pulse Ox 97.6 F 85 20 136/53 L 95 05/28/19 05:00 05/28/19 10:28 05/28/19 05:00 05/28/19 05:00 05/27/19 20:57 Active Medications Acetaminophen (Tylenol -) 650 mg PO Q4H PRN PRN Reason: PAIN Last Admin: 05/27/19 22:26 Dose: 650 mg Al Hydroxide/Mg Hydroxide (Mylanta Oral Suspension -) 30 ml PO TID [facility] Last Admin: 05/28/19 06:29 Dose: Not Given Apixaban (Eliquis -) 2.5 mg PO BID [facility] Last Admin: 05/28/19 10:28 Dose: 2.5 mg Digoxin (Lanoxin -) 0.125 mg PO DAILY [facility] Last Admin: 05/28/19 10:28 Dose: 0.125 mg Diltiazem HCl (Cardizem Cd -) 120 mg PO DAILY [facility] Last Admin: 05/28/19 10:28 Dose: 120 mg Donepezil HCl (Aricept -) 5 mg PO HS [facility] Last Admin: 05/27/19 22:27 Dose: 5 mg Famotidine (Famotidine) 20 mg PO BID [facility] Last Admin: 05/27/19 22:27 Dose: 20 mg Piperacillin Sod/Tazobactam (Sod 3.375 gm/ Dextrose) 50 mls @ 100 mls/hr IVPB Q8H-IV [facility]; Protocol Last Admin: 05/28/19 10:30 Dose: 100 mls/hr Vancomycin HCl (Vancomycin (Pre-Docked)) 1,000 mg in 250 mls @ 166.667 mls/hr IVPB Q24H [facility]; Protocol Last Admin: 05/28/19 11:01 Dose: 166.667 mls/hr Levothyroxine Sodium (Synthroid -) 25 mcg PO DAILY@0700 [facility] Last Admin: 05/28/19 06:26 Dose: 25 mcg Metoprolol Succinate (Toprol Xl -) 50 mg PO DAILY [facility] Last Admin: 05/28/19 10:29 Dose: 50 mg Ondansetron HCl (Zofran -) 4 mg PO Q8H PRN PRN Reason: NAUSEA AND/OR VOMITING Last Admin: 05/28/19 09:38 Dose: 4 mg Potassium Chloride (K-Dur -) 40 meq PO DAILY [facility] Last Admin: 05/28/19 10:29 Dose: 40 meq Constitutional: Yes: NAD Eyes: Yes: WNL HENT: Yes: WNL Neck: Yes: WNL Cardiovascular: Yes: Regular Rate and Rhythm, S1, S2 Respiratory: Yes: Diminished Gastrointestinal: Yes: Normal Bowel Sounds, Soft Extremities: Yes: WNL Edema: Yes Labs: Laboratory Results - last 24 hr 05/28/19 05/28/19 05/28/19 06:35 06:35 06:55 WBC 14.2 H RBC 3.80 Hgb 11.0 Hct 34.0 D MCV 89.7 MCH 29.1 MCHC 32.5 RDW 21.9 H Plt Count 438 H MPV 7.0 L Absolute Neuts (auto) 11.2 H Neutrophils % 78.9 Lymphocytes % 9.1 Monocytes % 8.8 Eosinophils % 2.4 Basophils % 0.8 Nucleated RBC % 0 PTT (Actin FS) 34.3 Sodium 133 L Potassium 4.9 Chloride 96 L Carbon Dioxide 31 Anion Gap 6 L BUN 17.0 Creatinine 1.4 H Est GFR (CKD-EPI)AfAm 43.09 Est GFR (CKD-EPI)NonAf 37.18 Random Glucose 74 Calcium 8.9 Phosphorus 3.6 Magnesium 2.7 H Assessment/Plan Problem List - Problems (1) Change in mental status Code(s): R41.82 - ALTERED MENTAL STATUS, UNSPECIFIED (2) Hypothyroid Code(s): E03.9 - HYPOTHYROIDISM, UNSPECIFIED (3) Lesion of spleen Code(s): D73.9 - DISEASE OF SPLEEN, UNSPECIFIED (4) CAD (coronary artery disease) Code(s): I25.10 - ATHSCL HEART DISEASE OF [place] CORONARY ARTERY W/O ANG PCTRS (5) CHF exacerbation Code(s): I50.9 - HEART FAILURE, UNSPECIFIED (6) Cough Code(s): R05 - COUGH (7) Dementia Code(s): F03.90 - UNSPECIFIED DEMENTIA WITHOUT BEHAVIORAL DISTURBANCE (8) Depression Code(s): F32.9 - MAJOR DEPRESSIVE DISORDER, SINGLE EPISODE, UNSPECIFIED (9) Diverticula of colon Code(s): K57.30 - DVRTCLOS OF LG INT W/O PERFORATION OR ABSCESS W/O BLEEDING (10) Failure to thrive Code(s): [id number] - Qualifiers: Failure to thrive age range: in adult Qualified Code(s): R62.7 - Adult failure to thrive (11) Falling Code(s): W19.XXXA - UNSPECIFIED FALL, INITIAL ENCOUNTER (12) Gait abnormality Code(s): R26.9 - UNSPECIFIED ABNORMALITIES OF GAIT AND MOBILITY (13) Hyperlipidemia Code(s): E78.5 - HYPERLIPIDEMIA, UNSPECIFIED (14) Hypertension Code(s): I10 - ESSENTIAL (PRIMARY) HYPERTENSION (15) Metabolic encephalopathy Code(s): G93.41 - METABOLIC ENCEPHALOPATHY (16) Rheumatoid arthritis Code(s): M06.9 - RHEUMATOID ARTHRITIS, UNSPECIFIED (17) S/P cholecystectomy Code(s): Z90.49 - ACQUIRED ABSENCE OF OTHER SPECIFIED PARTS OF DIGESTIVE TRACT (18) Community acquired pneumonia Code(s): J18.9 - PNEUMONIA, UNSPECIFIED ORGANISM RUL (19) AAA (20) COPD (21) NAVID (22) LLE DVT Assessment/Plan ABX per ID O2 as needed BD TX PRN Aspiration precautions Fall precautions Angelikaqususan Baugh Problem List - Problems (1) Change in mental status Code(s): R41.82 - ALTERED MENTAL STATUS, UNSPECIFIED (2) Hypothyroid Code(s): E03.9 - HYPOTHYROIDISM, UNSPECIFIED (3) Lesion of spleen Code(s): D73.9 - DISEASE OF SPLEEN, UNSPECIFIED (4) CAD (coronary artery disease) Code(s): I25.10 - ATHSCL HEART DISEASE OF [place] CORONARY ARTERY W/O ANG PCTRS (5) CHF exacerbation Code(s): I50.9 - HEART FAILURE, UNSPECIFIED (6) Cough Code(s): R05 - COUGH (7) Dementia Code(s): F03.90 - UNSPECIFIED DEMENTIA WITHOUT BEHAVIORAL DISTURBANCE (8) Depression Code(s): F32.9 - MAJOR DEPRESSIVE DISORDER, SINGLE EPISODE, UNSPECIFIED (9) Diverticula of colon Code(s): K57.30 - DVRTCLOS OF LG INT W/O PERFORATION OR ABSCESS W/O BLEEDING (10) Failure to thrive Code(s): [id number] - Qualifiers: Failure to thrive age range: in adult Qualified Code(s): R62.7 - Adult failure to thrive (11) Falling Code(s): W19.XXXA - UNSPECIFIED FALL, INITIAL ENCOUNTER (12) Gait abnormality Code(s): R26.9 - UNSPECIFIED ABNORMALITIES OF GAIT AND MOBILITY (13) Hyperlipidemia Code(s): E78.5 - HYPERLIPIDEMIA, UNSPECIFIED (14) Hypertension Code(s): I10 - ESSENTIAL (PRIMARY) HYPERTENSION (15) Metabolic encephalopathy Code(s): G93.41 - METABOLIC ENCEPHALOPATHY (16) Rheumatoid arthritis Code(s): M06.9 - RHEUMATOID ARTHRITIS, UNSPECIFIED (17) S/P cholecystectomy Code(s): Z90.49 - ACQUIRED ABSENCE OF OTHER SPECIFIED PARTS OF DIGESTIVE TRACT (18) Community acquired pneumonia Code(s): J18.9 - PNEUMONIA, UNSPECIFIED ORGANISM
[2019-05-28] MEDS: FAMOTIDINE 40 MG/5 ML ORAL SUSPENSION PO SCH ×2 (11:47→21:30)
--- NOTE | 2019-05-28 12:16 | PN ---
Progress Note, Physician Chief Complaint: Pneumonia CHF Metabolic Encephalopathy History of Present Illness: Previous notes and events reviewed awake and alert NAD c/o SOB with exertion denies chest pain or palpitation complain of weakness - Current Medication List Current Medications: Active Medications Acetaminophen (Tylenol -) 650 mg PO Q4H PRN PRN Reason: PAIN Last Admin: 05/27/19 22:26 Dose: 650 mg Al Hydroxide/Mg Hydroxide (Mylanta Oral Suspension -) 30 ml PO TID [facility] Last Admin: 05/28/19 06:29 Dose: Not Given Apixaban (Eliquis -) 2.5 mg PO BID [facility] Last Admin: 05/28/19 10:28 Dose: 2.5 mg Digoxin (Lanoxin -) 0.125 mg PO DAILY [facility] Last Admin: 05/28/19 10:28 Dose: 0.125 mg Diltiazem HCl (Cardizem Cd -) 120 mg PO DAILY [facility] Last Admin: 05/28/19 10:28 Dose: 120 mg Donepezil HCl (Aricept -) 5 mg PO HS [facility] Last Admin: 05/27/19 22:27 Dose: 5 mg Famotidine (Famotidine) 20 mg PO BID [facility] Last Admin: 05/28/19 11:47 Dose: 20 mg Piperacillin Sod/Tazobactam (Sod 3.375 gm/ Dextrose) 50 mls @ 100 mls/hr IVPB Q8H-IV [facility]; Protocol Last Admin: 05/28/19 10:30 Dose: 100 mls/hr Vancomycin HCl (Vancomycin (Pre-Docked)) 1,000 mg in 250 mls @ 166.667 mls/hr IVPB Q24H [facility]; Protocol Last Admin: 05/28/19 11:01 Dose: 166.667 mls/hr Levothyroxine Sodium (Synthroid -) 25 mcg PO DAILY@0700 [facility] Last Admin: 05/28/19 06:26 Dose: 25 mcg Metoprolol Succinate (Toprol Xl -) 50 mg PO DAILY [facility] Last Admin: 05/28/19 10:29 Dose: 50 mg Ondansetron HCl (Zofran -) 4 mg PO Q8H PRN PRN Reason: NAUSEA AND/OR VOMITING Last Admin: 05/28/19 09:38 Dose: 4 mg Potassium Chloride (K-Dur -) 40 meq PO DAILY [facility] Last Admin: 05/28/19 10:29 Dose: 40 meq - Objective Vital Signs: Vital Signs Temperature 98.7 F 05/28/19 09:00 Pulse Rate 85 05/28/19 10:28 Respiratory Rate 22 H 05/28/19 09:00 Blood Pressure 131/65 05/28/19 09:00 O2 Sat by Pulse Oximetry (%) 95 05/27/19 20:57 Constitutional: Yes: No Distress, Calm Eyes: Yes: Conjunctiva Clear HENT: Yes: Atraumatic Cardiovascular: Yes: Pulse Irregular Respiratory: Yes: Regular, Diminished Gastrointestinal: Yes: Normal Bowel Sounds, Soft Genitourinary: Yes: Incontinence Musculoskeletal: Yes: Muscle Weakness Extremities: Yes: WNL Edema: No Neurological: Yes: Alert, Oriented Psychiatric: Yes: Alert, Oriented Labs: CBC, BMP 05/28/19 06:55 05/28/19 06:35 INR, PTT INR 1.24 (0.83-1.09) H 05/13/19 07:00 Problem List - Problems (1) Hypothyroid Assessment/Plan: -Levothyroxine Code(s): E03.9 - HYPOTHYROIDISM, UNSPECIFIED (2) PSVT (paroxysmal supraventricular tachycardia) Assessment/Plan: -Cardiology on board -tele monitoring -Digoxin, Cardizem, Metoprolol Code(s): I47.1 - SUPRAVENTRICULAR TACHYCARDIA (3) Pneumonia Assessment/Plan: -ID on board -Pulm on board -bronchodilators -Leukocytosis WBC 14.1 -febrile -Zosyn, Vanncomycin -tylenol prn for temp >100F -CXR shows acute lobar consolidation involving the entire RUL consistent with acute RUL pneumonia -O2 via [place] -keep SpO2 >90% Code(s): J18.9 - PNEUMONIA, UNSPECIFIED ORGANISM (4) CAD (coronary artery disease) Assessment/Plan: -no Aspirin due to hx of PUD Code(s): I25.10 - ATHSCL HEART DISEASE OF [place] CORONARY ARTERY W/O ANG PCTRS (5) COPD exacerbation Assessment/Plan: -Pulm on board -Bronchodilator -Keep SpO2 >90% -o2 via [place] Code(s): J44.1 - CHRONIC OBSTRUCTIVE PULMONARY DISEASE W (ACUTE) EXACERBATION (6) Hypertension Assessment/Plan: -low Na diet Code(s): I10 - ESSENTIAL (PRIMARY) HYPERTENSION (7) Metabolic encephalopathy Assessment/Plan: -resolved Code(s): G93.41 - METABOLIC ENCEPHALOPATHY (8) Edema of left lower extremity Assessment/Plan: -Leukocytosis WBC 14.1 -afebrile -LLE Doppler shows findings consistent with DVT ine the LLE involving the left femoral, popliteal and posterior tibial vein, incomplete compression of the left and deep femoral vein consistent with thrombosis -Eliquis Code(s): R60.0 - LOCALIZED EDEMA Assessment/Plan see problem list
[2019-05-28] MEDS: DONEPEZIL HCL 5 MG TABLET (FP) PO SCH (21:30)
[2019-05-29] MEDS ORDERED: PIPERACILLIN/TAZOBACTAM 3.375 GM VIAL IVPB ONE ×3 (00:57→17:58)
[2019-05-29] MEDS ORDERED: DEXTROSE 5%-WATER - 50 ML IVPB ONE ×3 (00:58→17:59)
[2019-05-29] MEDS: PIPERACILLIN/TAZOB 3.375 GM 3.375 GM in DEXTROSE 5%-WATER - 50 ML IVPB SCH ×3 (01:16→18:01)
[2019-05-29 06:28] LABS: HEMATOCRIT 30.4 % (32.4-45.2); HEMOGLOBIN 10.1 GM/dL (10.7-15.3); MCH 29.2 pg (25.7-33.7); MCHC 33.2 g/dl (32.0-36.0); MEAN CELL VOLUME 88.2 fl (80-96); MEAN PLT VOLUME 6.5 fl (7.5-11.1); PLATELET COUNT 365 K/MM3 (134-434); RBC 3.44 M/mm3 (3.60-5.2); WHITE BLOOD COUNT 12.4 K/mm3 (4.0-10.0)
[2019-05-29] MEDS: LEVOTHYROXINE NA 25 MCG TABLET (FP) PO SCH (06:40)
[2019-05-29] MEDS: MAG HYDROX/AL HYDROX/SIMETH 30 ML UNIT-DOSE CUP PO SCH ×4 (06:40→21:28)
[2019-05-29 07:17] LABS: ALBUMIN 2.4 g/dl (3.4-5.0); ALK PHOS 66 U/L (45-117); ANION GAP 6 MMOL/L (8-16); BILIRUBIN,TOTAL 0.9 mg/dL (0.2-1); BLOOD UREA NITROGEN 14.7 mg/dL (7-18); CALCIUM 8.8 mg/dL (8.5-10.1); CHLORIDE 96 mmol/L (98-107); CO2 31 mmol/L (21-32); CREATININE 1.3 mg/dL (0.55-1.3); GLUCOSE,RANDOM 86 mg/dL (74-106); MAGNESIUM 2.2 mg/dL (1.8-2.4); PHOSPHOROUS 3.3 mg/dL (2.5-4.9); POTASSIUM 4.4 mmol/L (3.5-5.1); SGOT/AST 13 U/L (15-37); SGPT/ALT < 6 U/L (13-61); SODIUM 132 mmol/L (136-145); TOT PROT 6.1 g/dl (6.4-8.2)
--- NOTE | 2019-05-29 09:25 | PN ---
Progress Note, Physician History of Present Illness: seen on telemetry Alert awake oriented Follows 1 step command normal attention span denies any nausea or vomiting tolerating the Aricept very well - Current Medication List Current Medications: Active Medications Acetaminophen (Tylenol -) 650 mg PO Q4H PRN PRN Reason: PAIN Last Admin: 05/27/19 22:26 Dose: 650 mg Al Hydroxide/Mg Hydroxide (Mylanta Oral Suspension -) 30 ml PO TID [facility] Last Admin: 05/29/19 06:40 Dose: Not Given Apixaban (Eliquis -) 2.5 mg PO BID [facility] Last Admin: 05/28/19 21:30 Dose: 2.5 mg Digoxin (Lanoxin -) 0.125 mg PO DAILY [facility] Last Admin: 05/28/19 10:28 Dose: 0.125 mg Diltiazem HCl (Cardizem Cd -) 120 mg PO DAILY [facility] Last Admin: 05/28/19 10:28 Dose: 120 mg Donepezil HCl (Aricept -) 5 mg PO HS [facility] Last Admin: 05/28/19 21:30 Dose: 5 mg Famotidine (Famotidine) 20 mg PO BID [facility] Last Admin: 05/28/19 21:30 Dose: 20 mg Piperacillin Sod/Tazobactam (Sod 3.375 gm/ Dextrose) 50 mls @ 100 mls/hr IVPB Q8H-IV [facility]; Protocol Last Admin: 05/29/19 01:16 Dose: 100 mls/hr Vancomycin HCl (Vancomycin (Pre-Docked)) 1,000 mg in 250 mls @ 166.667 mls/hr IVPB Q24H [facility]; Protocol Last Admin: 05/28/19 11:01 Dose: 166.667 mls/hr Levothyroxine Sodium (Synthroid -) 25 mcg PO DAILY@0700 [facility] Last Admin: 05/29/19 06:40 Dose: 25 mcg Metoprolol Succinate (Toprol Xl -) 50 mg PO DAILY [facility] Last Admin: 05/28/19 10:29 Dose: 50 mg Ondansetron HCl (Zofran -) 4 mg PO Q8H PRN PRN Reason: NAUSEA AND/OR VOMITING Last Admin: 05/28/19 09:38 Dose: 4 mg Potassium Chloride (K-Dur -) 40 meq PO DAILY [facility] Last Admin: 05/28/19 10:29 Dose: 40 meq - Objective Vital Signs: Vital Signs Temperature 98.5 F 05/29/19 05:00 Pulse Rate 72 05/29/19 05:00 Respiratory Rate 20 05/29/19 05:00 Blood Pressure 132/68 05/29/19 05:00 O2 Sat by Pulse Oximetry (%) 91 L 05/28/19 09:00 Constitutional: Yes: Well Nourished Eyes: Yes: WNL Wound/Incision: Yes: Unapproximated Neurological: Yes: Alert, Babinski negative ...Motor Strength: WNL Labs: CBC, BMP 05/29/19 05:40 05/29/19 05:40 INR, PTT INR 1.24 (0.83-1.09) H 05/13/19 07:00 Problem List - Problems (1) Change in mental status Assessment/Plan: ncrease Aricept to 10 mg once daily. Physical therapy. Fall precautions. Chest PT. we'll arrange for the resume IVIG as an outpatient for neuropathy Code(s): R41.82 - ALTERED MENTAL STATUS, UNSPECIFIED
[2019-05-29] MEDS ORDERED: PT OWN MED DRAWER 7, Y5N ONE (09:42)
[2019-05-29] MEDS: POTASSIUM CHLORIDE TABS 10 MEQ TABLET.ER (FP) PO SCH (09:49)
[2019-05-29] MEDS: DIGOXIN 0.125 MG TABLET (FP) PO SCH (09:49)
[2019-05-29] MEDS: DONEPEZIL HCL 10 MG TABLET (FP) PO SCH (09:49)
[2019-05-29] MEDS: APIXABAN 2.5 MG TABLET PO SCH ×2 (09:49→21:25)
[2019-05-29] MEDS: FAMOTIDINE 40 MG/5 ML ORAL SUSPENSION PO SCH ×2 (09:50→21:25)
--- NOTE | 2019-05-29 09:55 | PN ---
Progress Note, Physician Chief Complaint: sob History of Present Illness: says sob has resolved no cp no leg swelling no palpit - Current Medication List Current Medications: Active Medications Acetaminophen (Tylenol -) 650 mg PO Q4H PRN PRN Reason: PAIN Last Admin: 05/27/19 22:26 Dose: 650 mg Al Hydroxide/Mg Hydroxide (Mylanta Oral Suspension -) 30 ml PO TID [facility] Last Admin: 05/29/19 06:40 Dose: Not Given Apixaban (Eliquis -) 2.5 mg PO BID [facility] Last Admin: 05/29/19 09:49 Dose: 2.5 mg Digoxin (Lanoxin -) 0.125 mg PO DAILY [facility] Last Admin: 05/29/19 09:49 Dose: 0.125 mg Diltiazem HCl (Cardizem Cd -) 120 mg PO DAILY [facility] Last Admin: 05/29/19 09:48 Dose: 120 mg Donepezil HCl (Aricept -) 5 mg PO HS [facility] Last Admin: 05/28/19 21:30 Dose: 5 mg Donepezil HCl (Aricept -) 10 mg PO DAILY [facility] Last Admin: 05/29/19 09:49 Dose: 10 mg Famotidine (Famotidine) 20 mg PO BID [facility] Last Admin: 05/29/19 09:50 Dose: 20 mg Piperacillin Sod/Tazobactam (Sod 3.375 gm/ Dextrose) 50 mls @ 100 mls/hr IVPB Q8H-IV [facility]; Protocol Last Admin: 05/29/19 09:50 Dose: 100 mls/hr Vancomycin HCl (Vancomycin (Pre-Docked)) 1,000 mg in 250 mls @ 166.667 mls/hr IVPB Q24H [facility]; Protocol Last Admin: 05/28/19 11:01 Dose: 166.667 mls/hr Levothyroxine Sodium (Synthroid -) 25 mcg PO DAILY@0700 [facility] Last Admin: 05/29/19 06:40 Dose: 25 mcg Metoprolol Succinate (Toprol Xl -) 50 mg PO DAILY [facility] Last Admin: 05/29/19 09:49 Dose: 50 mg Ondansetron HCl (Zofran -) 4 mg PO Q8H PRN PRN Reason: NAUSEA AND/OR VOMITING Last Admin: 05/28/19 09:38 Dose: 4 mg Potassium Chloride (K-Dur -) 40 meq PO DAILY [facility] Last Admin: 05/29/19 09:49 Dose: 40 meq - Objective Vital Signs: Vital Signs Temperature 98 F 05/29/19 09:00 Pulse Rate 84 05/29/19 09:49 Respiratory Rate 18 05/29/19 09:00 Blood Pressure 126/56 L 05/29/19 09:00 O2 Sat by Pulse Oximetry (%) 91 L 05/28/19 09:00 Constitutional: Yes: Well Nourished, No Distress, Calm Cardiovascular: Yes: Regular Rate and Rhythm (decr intensity), S1, S2. No: Gallop, Murmur Respiratory: Yes: Regular, CTA Bilaterally (decr intensity). No: Accessory Muscle Use, Rales, Wheezes Extremities: No: Cold Edema: No Neurological: Yes: Alert. No: Seizure Psychiatric: No: Agitated Labs: CBC, BMP 05/29/19 05:40 05/29/19 05:40 INR, PTT INR 1.24 (0.83-1.09) H 05/13/19 07:00 Assessment/Plan Echo 04/2019: mild LVH. grossly nl LVEF (50%). grossly nl RV. mild-mod AI. 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 Has tolerated UFH gtts well without bleeding (h/o PUD). Can convert to oral AC. Suggest Heme input to guide duration of NOAC for provoked DVT with permanent risk factor (sedentary). 2. Abx per ID. 3. On Dig, Dilt and Metoprolol for rate control (MAT and PSVT), now stable. repeat dig level 4. Not on ASA for Presumed CAD (previous abnl stress MPI) due to NSAID ulcer disease 5. Outpatient f/u fo 7. no volume overload, s/p iv diuresis--defer lasix
--- NOTE | 2019-05-29 10:20 | PN ---
Progress Note, Physician History of Present Illness: pulmonary alert,comfortable,-resp distress - Current Medication List Current Medications: Active Medications Acetaminophen (Tylenol -) 650 mg PO Q4H PRN PRN Reason: PAIN Last Admin: 05/27/19 22:26 Dose: 650 mg Al Hydroxide/Mg Hydroxide (Mylanta Oral Suspension -) 30 ml PO TID [facility] Last Admin: 05/29/19 06:40 Dose: Not Given Apixaban (Eliquis -) 2.5 mg PO BID [facility] Last Admin: 05/29/19 09:49 Dose: 2.5 mg Digoxin (Lanoxin -) 0.125 mg PO DAILY [facility] Last Admin: 05/29/19 09:49 Dose: 0.125 mg Diltiazem HCl (Cardizem Cd -) 120 mg PO DAILY [facility] Last Admin: 05/29/19 09:48 Dose: 120 mg Donepezil HCl (Aricept -) 5 mg PO HS [facility] Last Admin: 05/28/19 21:30 Dose: 5 mg Donepezil HCl (Aricept -) 10 mg PO DAILY [facility] Last Admin: 05/29/19 09:49 Dose: 10 mg Famotidine (Famotidine) 20 mg PO BID [facility] Last Admin: 05/29/19 09:50 Dose: 20 mg Piperacillin Sod/Tazobactam (Sod 3.375 gm/ Dextrose) 50 mls @ 100 mls/hr IVPB Q8H-IV [facility]; Protocol Last Admin: 05/29/19 09:50 Dose: 100 mls/hr Vancomycin HCl (Vancomycin (Pre-Docked)) 1,000 mg in 250 mls @ 166.667 mls/hr IVPB Q24H [facility]; Protocol Last Admin: 05/28/19 11:01 Dose: 166.667 mls/hr Levothyroxine Sodium (Synthroid -) 25 mcg PO DAILY@0700 [facility] Last Admin: 05/29/19 06:40 Dose: 25 mcg Metoprolol Succinate (Toprol Xl -) 50 mg PO DAILY [facility] Last Admin: 05/29/19 09:49 Dose: 50 mg Ondansetron HCl (Zofran -) 4 mg PO Q8H PRN PRN Reason: NAUSEA AND/OR VOMITING Last Admin: 05/28/19 09:38 Dose: 4 mg Potassium Chloride (K-Dur -) 40 meq PO DAILY [facility] Last Admin: 11/11/19 09:49 Dose: 40 meq - Objective Vital Signs: Vital Signs Temperature 98 F 05/29/19 09:00 Pulse Rate 84 05/29/19 09:49 Respiratory Rate 18 05/29/19 09:00 Blood Pressure 126/56 L 05/29/19 09:00 O2 Sat by Pulse Oximetry (%) 91 L 05/28/19 09:00 Constitutional: Yes: Well Nourished, Calm Eyes: Yes: WNL HENT: Yes: WNL Neck: Yes: WNL Cardiovascular: Yes: Regular Rate and Rhythm, S1, S2 Respiratory: Yes: Diminished Gastrointestinal: Yes: Normal Bowel Sounds, Soft Extremities: Yes: WNL Edema: Yes Labs: CBC, BMP 05/29/19 05:40 05/29/19 05:40 INR, PTT INR 1.24 (0.83-1.09) H 05/13/19 07:00 Assessment/Plan Problem List - Problems (1) Change in mental status Code(s): R41.82 - ALTERED MENTAL STATUS, UNSPECIFIED (2) Hypothyroid Code(s): E03.9 - HYPOTHYROIDISM, UNSPECIFIED (3) Lesion of spleen Code(s): D73.9 - DISEASE OF SPLEEN, UNSPECIFIED (4) CAD (coronary artery disease) Code(s): I25.10 - ATHSCL HEART DISEASE OF [place] CORONARY ARTERY W/O ANG PCTRS (5) CHF exacerbation Code(s): I50.9 - HEART FAILURE, UNSPECIFIED (6) Cough Code(s): R05 - COUGH (7) Dementia Code(s): F03.90 - UNSPECIFIED DEMENTIA WITHOUT BEHAVIORAL DISTURBANCE (8) Depression Code(s): F32.9 - MAJOR DEPRESSIVE DISORDER, SINGLE EPISODE, UNSPECIFIED (9) Diverticula of colon Code(s): K57.30 - DVRTCLOS OF LG INT W/O PERFORATION OR ABSCESS W/O BLEEDING (10) Failure to thrive Code(s): [id number] - Qualifiers: Failure to thrive age range: in adult Qualified Code(s): R62.7 - Adult failure to thrive (11) Falling Code(s): W19.XXXA - UNSPECIFIED FALL, INITIAL ENCOUNTER (12) Gait abnormality Code(s): R26.9 - UNSPECIFIED ABNORMALITIES OF GAIT AND MOBILITY (13) Hyperlipidemia Code(s): E78.5 - HYPERLIPIDEMIA, UNSPECIFIED (14) Hypertension Code(s): I10 - ESSENTIAL (PRIMARY) HYPERTENSION (15) Metabolic encephalopathy Code(s): G93.41 - METABOLIC ENCEPHALOPATHY (16) Rheumatoid arthritis Code(s): M06.9 - RHEUMATOID ARTHRITIS, UNSPECIFIED (17) S/P cholecystectomy Code(s): Z90.49 - ACQUIRED ABSENCE OF OTHER SPECIFIED PARTS OF DIGESTIVE TRACT (18) Community acquired pneumonia Code(s): J18.9 - PNEUMONIA, UNSPECIFIED ORGANISM RUL 19 AAA 20 COPD 21. NAVID 22. LLE DVT Assessment/Plan ABX per ID O2 as needed INHALED BRONCHODILATORS NIPPV support as needed for increased WOB Aspiration precautions Fall precautions f/u chest x-rays monitor lytes,renal function Maureen LOVELACE
[2019-05-29] MEDS: VANCOMYCIN 1 GRAM (PRE-DOCKED) 1,000 MG/250 ML BAG IVPB SCH ×2 (12:20→12:36)
--- NOTE | 2019-05-29 12:25 | PN ---
Progress Note, Physician Chief Complaint: patient seen and examined in bed no distress on iv abx for zosyn vancomcyin - Current Medication List Current Medications: Active Medications Acetaminophen (Tylenol -) 650 mg PO Q4H PRN PRN Reason: PAIN Last Admin: 05/27/19 22:26 Dose: 650 mg Al Hydroxide/Mg Hydroxide (Mylanta Oral Suspension -) 30 ml PO TID [facility] Last Admin: 05/29/19 06:40 Dose: Not Given Apixaban (Eliquis -) 2.5 mg PO BID [facility] Last Admin: 05/29/19 09:49 Dose: 2.5 mg Digoxin (Lanoxin -) 0.125 mg PO DAILY [facility] Last Admin: 05/29/19 09:49 Dose: 0.125 mg Diltiazem HCl (Cardizem Cd -) 120 mg PO DAILY [facility] Last Admin: 05/29/19 09:48 Dose: 120 mg Donepezil HCl (Aricept -) 5 mg PO HS [facility] Last Admin: 05/28/19 21:30 Dose: 5 mg Donepezil HCl (Aricept -) 10 mg PO DAILY [facility] Last Admin: 05/29/19 09:49 Dose: 10 mg Famotidine (Famotidine) 20 mg PO BID [facility] Last Admin: 05/29/19 09:50 Dose: 20 mg Piperacillin Sod/Tazobactam (Sod 3.375 gm/ Dextrose) 50 mls @ 100 mls/hr IVPB Q8H-IV [facility]; Protocol Last Admin: 05/29/19 09:50 Dose: 100 mls/hr Vancomycin HCl (Vancomycin (Pre-Docked)) 1,000 mg in 250 mls @ 166.667 mls/hr IVPB Q24H [facility]; Protocol Last Admin: 05/29/19 12:20 Dose: 166.667 mls/hr Levothyroxine Sodium (Synthroid -) 25 mcg PO DAILY@0700 [facility] Last Admin: 05/29/19 06:40 Dose: 25 mcg Metoprolol Succinate (Toprol Xl -) 50 mg PO DAILY [facility] Last Admin: 05/29/19 09:49 Dose: 50 mg Ondansetron HCl (Zofran -) 4 mg PO Q8H PRN PRN Reason: NAUSEA AND/OR VOMITING Last Admin: 05/28/19 09:38 Dose: 4 mg Potassium Chloride (K-Dur -) 40 meq PO DAILY [facility] Last Admin: 05/29/19 09:49 Dose: Not Given - Objective Vital Signs: Vital Signs Temperature 98 F 05/29/19 09:00 Pulse Rate 84 05/29/19 09:49 Respiratory Rate 18 05/29/19 09:00 Blood Pressure 126/56 L 05/29/19 09:00 O2 Sat by Pulse Oximetry (%) 91 L 05/28/19 09:00 Constitutional: Yes: Calm Cardiovascular: Yes: Regular Rate and Rhythm, S1, S2 Respiratory: Yes: Diminished, On Nasal O2 Gastrointestinal: Yes: Normal Bowel Sounds, Soft Edema: No Labs: CBC, BMP 05/29/19 05:40 05/29/19 05:40 INR, PTT INR 1.24 (0.83-1.09) H 05/13/19 07:00 Problem List - Problems (1) Change in mental status Assessment/Plan: toxic metabolic encephalopathy- improving pna on zosyn Code(s): R41.82 - ALTERED MENTAL STATUS, UNSPECIFIED (2) Lesion of spleen Assessment/Plan: appeciate heme evaluation Code(s): D73.9 - DISEASE OF SPLEEN, UNSPECIFIED (3) Hypothyroid Assessment/Plan: tsh synthroid Code(s): E03.9 - HYPOTHYROIDISM, UNSPECIFIED (4) CAD (coronary artery disease) Assessment/Plan: ob BB no aspirin bc of previuos PUD Code(s): I25.10 - ATHSCL HEART DISEASE OF [place] CORONARY ARTERY W/O ANG PCTRS (5) Abdominal pain Assessment/Plan: recent ct scan no acute pathology noted abdominal pain resolved will give zantac bid no loose bm Code(s): R10.9 - UNSPECIFIED ABDOMINAL PAIN Qualifiers: (6) Hypertension Assessment/Plan: enealpril Code(s): I10 - ESSENTIAL (PRIMARY) HYPERTENSION (7) PSVT (paroxysmal supraventricular tachycardia) Assessment/Plan: controlled on digxin and diltiazem and meotprolol Code(s): I47.1 - SUPRAVENTRICULAR TACHYCARDIA (8) CHF exacerbation Assessment/Plan: iv lasix bid 8o mg bid now stopped no volume overload right now on enalapril Code(s): I50.9 - HEART FAILURE, UNSPECIFIED (9) Edema of left lower extremity Assessment/Plan: LLE doppler positive for DVT iv heparin stopped on eliquis Code(s): R60.0 - LOCALIZED EDEMA (10) Cellulitis Assessment/Plan: iv vancomycin for LLE cellulitis MRSA screen negative Code(s): L03.90 - CELLULITIS, UNSPECIFIED (11) DVT (deep venous thrombosis) Assessment/Plan: on eliquis Code(s): I82.409 - ACUTE EMBOLISM AND THOMBOS UNSP DEEP VN UNSP LOWER EXTREMITY Qualifiers: DVT location: lower extremity
--- NOTE | 2019-05-29 12:30 | PN ---
Progress Note (short form) - Note Progress Note: Renal follow up for NAVID Seen and examined at the bedside offers no acute complaints denies any sob, cp, abd pain, fever or chills making urine, no flank pain Vital Signs Temperature 98 F 05/29/19 09:00 Pulse Rate 84 05/29/19 09:49 Respiratory Rate 18 05/29/19 09:00 Blood Pressure 126/56 L 05/29/19 09:00 O2 Sat by Pulse Oximetry (%) 91 L 05/28/19 09:00 Intake & Output 05/26/19 05/27/19 05/28/19 05/29/19 23:59 23:59 23:59 23:59 Intake Total 1596 1233 550 550 Balance 1596 1233 550 550 Weight 68.946 kg NAD awake and alert neck supple RRR CTA soft NT/ND no LE edema CBC, BMP 05/29/19 05:40 05/29/19 05:40 Current Medications Acetaminophen (Tylenol -) 650 mg PO Q4H PRN PRN Reason: PAIN Last Admin: 05/27/19 22:26 Dose: 650 mg Al Hydroxide/Mg Hydroxide (Mylanta Oral Suspension -) 30 ml PO TID [facility] Last Admin: 05/29/19 06:40 Dose: Not Given Apixaban (Eliquis -) 2.5 mg PO BID [facility] Last Admin: 05/29/19 09:49 Dose: 2.5 mg Digoxin (Lanoxin -) 0.125 mg PO DAILY [facility] Last Admin: 05/29/19 09:49 Dose: 0.125 mg Diltiazem HCl (Cardizem Cd -) 120 mg PO DAILY [facility] Last Admin: 05/29/19 09:48 Dose: 120 mg Donepezil HCl (Aricept -) 5 mg PO HS [facility] Last Admin: 05/28/19 21:30 Dose: 5 mg Donepezil HCl (Aricept -) 10 mg PO DAILY [facility] Last Admin: 05/29/19 09:49 Dose: 10 mg Famotidine (Famotidine) 20 mg PO BID [facility] Last Admin: 05/29/19 09:50 Dose: 20 mg Piperacillin Sod/Tazobactam (Sod 3.375 gm/ Dextrose) 50 mls @ 100 mls/hr IVPB Q8H-IV [facility]; Protocol Last Admin: 05/29/19 09:50 Dose: 100 mls/hr Vancomycin HCl (Vancomycin (Pre-Docked)) 1,000 mg in 250 mls @ 166.667 mls/hr IVPB Q24H [facility]; Protocol Last Admin: 05/29/19 12:20 Dose: 166.667 mls/hr Levothyroxine Sodium (Synthroid -) 25 mcg PO DAILY@0700 [facility] Last Admin: 05/29/19 06:40 Dose: 25 mcg Metoprolol Succinate (Toprol Xl -) 50 mg PO DAILY [facility] Last Admin: 05/29/19 09:49 Dose: 50 mg Ondansetron HCl (Zofran -) 4 mg PO Q8H PRN PRN Reason: NAUSEA AND/OR VOMITING Last Admin: 05/28/19 09:38 Dose: 4 mg Potassium Chloride (K-Dur -) 40 meq PO DAILY [facility] Last Admin: 05/29/19 09:49 Dose: Not Given 74 year old woman with history of COPD, CHF, AAA, hypertension, dementia, hypothyroidism, RA who presented with AMS and found to have lower extremity DVT , sepsis from pneumonia and now with NAVID. 1. Acute kidney injury secondary to contrast nephrtopathy vs. normotensive ATN vs. AIN vs. Vancomycin toxicity 2. Sepsis from PNA 3. Lower extremity DVT 4. Hyponatremia 5. History of hypertension Renal function is improved and stable Renal US showed no obstruction Hold Enalapril for now given renal injury Keep MAP > 65 Hold Vanco if Level > 22 trend renal function off IVF Trend renal function and electrolytes daily Avoid further IV contrast and nephrotoxins Thank you Kye Church DO
[2019-05-29] MEDS: DONEPEZIL HCL 5 MG TABLET (FP) PO SCH (21:25)
[2019-05-30] MEDS ORDERED: PIPERACILLIN/TAZOBACTAM 3.375 GM VIAL IVPB ONE ×2 (01:22→11:10)
[2019-05-30] MEDS ORDERED: DEXTROSE 5%-WATER - 50 ML IVPB ONE (01:23)
[2019-05-30] MEDS: PIPERACILLIN/TAZOB 3.375 GM 3.375 GM in DEXTROSE 5%-WATER - 50 ML IVPB SCH ×2 (01:25→11:15)
[2019-05-30] MEDS: MAG HYDROX/AL HYDROX/SIMETH 30 ML UNIT-DOSE CUP PO SCH ×4 (05:54→21:41)
[2019-05-30] MEDS: LEVOTHYROXINE NA 25 MCG TABLET (FP) PO SCH (06:07)
[2019-05-30 07:16] LABS: BLOOD UREA NITROGEN 11.5 mg/dL (7-18); CALCIUM 8.8 mg/dL (8.5-10.1); CREATININE 1.3 mg/dL (0.55-1.3); MAGNESIUM 2.4 mg/dL (1.8-2.4); PHOSPHOROUS 3.4 mg/dL (2.5-4.9); POTASSIUM 4.2 mmol/L (3.5-5.1)
--- NOTE | 2019-05-30 11:00 | PN ---
Progress Note, Physician History of Present Illness: PULMONARY ALERT,COMFORTABLE,SOB IMPROVING - Current Medication List Current Medications: Active Medications Acetaminophen (Tylenol -) 650 mg PO Q4H PRN PRN Reason: PAIN Last Admin: 05/27/19 22:26 Dose: 650 mg Al Hydroxide/Mg Hydroxide (Mylanta Oral Suspension -) 30 ml PO TID [facility] Last Admin: 05/30/19 05:54 Dose: 30 ml Apixaban (Eliquis -) 2.5 mg PO BID [facility] Last Admin: 05/29/19 21:25 Dose: 2.5 mg Digoxin (Lanoxin -) 0.125 mg PO DAILY [facility] Last Admin: 05/29/19 09:49 Dose: 0.125 mg Diltiazem HCl (Cardizem Cd -) 120 mg PO DAILY [facility] Last Admin: 05/29/19 09:48 Dose: 120 mg Donepezil HCl (Aricept -) 5 mg PO HS [facility] Last Admin: 05/29/19 21:25 Dose: 5 mg Donepezil HCl (Aricept -) 10 mg PO DAILY [facility] Last Admin: 05/29/19 09:49 Dose: 10 mg Famotidine (Famotidine) 20 mg PO BID [facility] Last Admin: 05/29/19 21:25 Dose: 20 mg Piperacillin Sod/Tazobactam (Sod 3.375 gm/ Dextrose) 50 mls @ 100 mls/hr IVPB Q8H-IV [facility]; Protocol Last Admin: 05/30/19 01:25 Dose: 100 mls/hr Vancomycin HCl (Vancomycin (Pre-Docked)) 1,000 mg in 250 mls @ 166.667 mls/hr IVPB Q24H [facility]; Protocol Last Admin: 05/29/19 12:36 Dose: Not Given Levothyroxine Sodium (Synthroid -) 25 mcg PO DAILY@0700 [facility] Last Admin: 05/30/19 06:07 Dose: 25 mcg Metoprolol Succinate (Toprol Xl -) 50 mg PO DAILY [facility] Last Admin: 05/29/19 09:49 Dose: 50 mg Ondansetron HCl (Zofran -) 4 mg PO Q8H PRN PRN Reason: NAUSEA AND/OR VOMITING Last Admin: 05/28/19 09:38 Dose: 4 mg Potassium Chloride (K-Dur -) 40 meq PO DAILY [facility] Last Admin: 05/29/19 09:49 Dose: Not Given - Objective Vital Signs: Vital Signs Temperature 98.2 F 05/30/19 10:00 Pulse Rate 90 05/30/19 10:00 Respiratory Rate 20 05/30/19 10:00 Blood Pressure 118/77 05/30/19 10:00 O2 Sat by Pulse Oximetry (%) 90 L 05/30/19 09:00 Constitutional: Yes: Well Nourished, Calm Eyes: Yes: WNL HENT: Yes: WNL Neck: Yes: WNL Cardiovascular: Yes: Regular Rate and Rhythm, S1, S2 Respiratory: Yes: Diminished Gastrointestinal: Yes: Normal Bowel Sounds, Soft Extremities: Yes: WNL Edema: Yes Labs: CBC, BMP 05/29/19 05:40 05/30/19 06:12 INR, PTT INR 1.24 (0.83-1.09) H 05/13/19 07:00 Assessment/Plan Problem List - Problems (1) Change in mental status Code(s): R41.82 - ALTERED MENTAL STATUS, UNSPECIFIED (2) Hypothyroid Code(s): E03.9 - HYPOTHYROIDISM, UNSPECIFIED (3) Lesion of spleen Code(s): D73.9 - DISEASE OF SPLEEN, UNSPECIFIED (4) CAD (coronary artery disease) Code(s): I25.10 - ATHSCL HEART DISEASE OF [place] CORONARY ARTERY W/O ANG PCTRS (5) CHF exacerbation Code(s): I50.9 - HEART FAILURE, UNSPECIFIED (6) Cough Code(s): R05 - COUGH (7) Dementia Code(s): F03.90 - UNSPECIFIED DEMENTIA WITHOUT BEHAVIORAL DISTURBANCE (8) Depression Code(s): F32.9 - MAJOR DEPRESSIVE DISORDER, SINGLE EPISODE, UNSPECIFIED (9) Diverticula of colon Code(s): K57.30 - DVRTCLOS OF LG INT W/O PERFORATION OR ABSCESS W/O BLEEDING (10) Failure to thrive Code(s): [id number] - Qualifiers: Failure to thrive age range: in adult Qualified Code(s): R62.7 - Adult failure to thrive (11) Falling Code(s): W19.XXXA - UNSPECIFIED FALL, INITIAL ENCOUNTER (12) Gait abnormality Code(s): R26.9 - UNSPECIFIED ABNORMALITIES OF GAIT AND MOBILITY (13) Hyperlipidemia Code(s): E78.5 - HYPERLIPIDEMIA, UNSPECIFIED (14) Hypertension Code(s): I10 - ESSENTIAL (PRIMARY) HYPERTENSION (15) Metabolic encephalopathy Code(s): G93.41 - METABOLIC ENCEPHALOPATHY (16) Rheumatoid arthritis Code(s): M06.9 - RHEUMATOID ARTHRITIS, UNSPECIFIED (17) S/P cholecystectomy Code(s): Z90.49 - ACQUIRED ABSENCE OF OTHER SPECIFIED PARTS OF DIGESTIVE TRACT (18) Community acquired pneumonia Code(s): J18.9 - PNEUMONIA, UNSPECIFIED ORGANISM RUL 19 AAA 20 COPD 21. NAVID IMPROVED 22. LLE DVT Assessment/Plan ABX per ID O2 as needed INHALED BRONCHODILATORS NIPPV support as needed for increased WOB Aspiration precautions Fall precautions f/u chest x-rays monitor lytes,renal function Maureen LOVELACE
[2019-05-30] MEDS ORDERED: DEXTROSE 5%-WATER - 100 ML IVPB ONE (11:10)
[2019-05-30] MEDS: DONEPEZIL HCL 10 MG TABLET (FP) PO SCH (11:15)
[2019-05-30] MEDS: APIXABAN 2.5 MG TABLET PO SCH (11:15)
[2019-05-30] MEDS: POTASSIUM CHLORIDE TABS 10 MEQ TABLET.ER (FP) PO SCH (11:15)
--- NOTE | 2019-05-30 11:15 | PN ---
Progress Note (short form) - Note Progress Note: s: no chest pain, palps, dizziness, dyspnea Current Medications Acetaminophen (Tylenol -) 650 mg PO Q4H PRN PRN Reason: PAIN Last Admin: 05/27/19 22:26 Dose: 650 mg Al Hydroxide/Mg Hydroxide (Mylanta Oral Suspension -) 30 ml PO TID [facility] Last Admin: 05/30/19 05:54 Dose: 30 ml Apixaban (Eliquis -) 2.5 mg PO BID [facility] Last Admin: 05/29/19 21:25 Dose: 2.5 mg Digoxin (Lanoxin -) 0.125 mg PO DAILY [facility] Last Admin: 05/29/19 09:49 Dose: 0.125 mg Diltiazem HCl (Cardizem Cd -) 120 mg PO DAILY [facility] Last Admin: 05/29/19 09:48 Dose: 120 mg Donepezil HCl (Aricept -) 5 mg PO HS [facility] Last Admin: 05/29/19 21:25 Dose: 5 mg Donepezil HCl (Aricept -) 10 mg PO DAILY [facility] Last Admin: 05/29/19 09:49 Dose: 10 mg Famotidine (Famotidine) 20 mg PO BID [facility] Last Admin: 05/29/19 21:25 Dose: 20 mg Piperacillin Sod/Tazobactam (Sod 3.375 gm/ Dextrose) 50 mls @ 100 mls/hr IVPB Q8H-IV [facility]; Protocol Last Admin: 05/30/19 01:25 Dose: 100 mls/hr Vancomycin HCl (Vancomycin (Pre-Docked)) 1,000 mg in 250 mls @ 166.667 mls/hr IVPB Q24H [facility]; Protocol Last Admin: 05/29/19 12:36 Dose: Not Given Levothyroxine Sodium (Synthroid -) 25 mcg PO DAILY@0700 [facility] Last Admin: 05/30/19 06:07 Dose: 25 mcg Metoprolol Succinate (Toprol Xl -) 50 mg PO DAILY [facility] Last Admin: 05/29/19 09:49 Dose: 50 mg Ondansetron HCl (Zofran -) 4 mg PO Q8H PRN PRN Reason: NAUSEA AND/OR VOMITING Last Admin: 05/28/19 09:38 Dose: 4 mg Potassium Chloride (K-Dur -) 40 meq PO DAILY [facility] Last Admin: 05/29/19 09:49 Dose: Not Given Vital Signs Period Temp Pulse Resp BP Sys/[place]illas Pulse Ox Last 24 Hr 97.8 F-99.5 F 68-90 20-20 118-146/43-77 90-90 Constitutional: Yes: Well Nourished, No Distress, Calm Cardiovascular: Yes: Regular Rate and Rhythm (decr intensity), S1, S2. No: Gallop, Murmur Respiratory: Yes: Regular, CTA Bilaterally (decr intensity). No: Accessory Muscle Use, Rales, Wheezes Extremities: No: Cold Edema: No Neurological: Yes: Alert. No: Seizure Psychiatric: No: Agitated Assessment/Plan Echo 04/2019: mild LVH. grossly nl LVEF (50%). grossly nl RV. mild-mod AI. 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 Now on eliquis, heme following - Abx per ID. - On Dig, Dilt and Metoprolol for rate control (MAT and PSVT), now stable. - Not on ASA for Presumed CAD (previous abnl stress MPI) due to NSAID ulcer disease, now on noac as above - no volume overload, s/p iv diuresis--defer lasix dc tele
[2019-05-30] MEDS: FAMOTIDINE 40 MG/5 ML ORAL SUSPENSION PO SCH ×2 (11:16→21:42)
[2019-05-30] MEDS: DIGOXIN 0.125 MG TABLET (FP) PO SCH (11:16)
--- NOTE | 2019-05-30 11:25 | PN ---
Progress Note, Physician Chief Complaint: Pneumonia CHF Hypokalemia Metabolic encephalopathy History of Present Illness: NAD, feels better, breathing improved SOB on exertion, + Nasal O2 AxO x2 +dependent edema + DVT LLE Started on Eliquis - Current Medication List Current Medications: Active Medications Acetaminophen (Tylenol -) 650 mg PO Q4H PRN PRN Reason: PAIN Last Admin: 05/27/19 22:26 Dose: 650 mg Al Hydroxide/Mg Hydroxide (Mylanta Oral Suspension -) 30 ml PO TID [facility] Last Admin: 05/30/19 05:54 Dose: 30 ml Apixaban (Eliquis -) 2.5 mg PO BID [facility] Last Admin: 05/30/19 11:15 Dose: 2.5 mg Digoxin (Lanoxin -) 0.125 mg PO DAILY [facility] Last Admin: 05/30/19 11:16 Dose: 0.125 mg Diltiazem HCl (Cardizem Cd -) 120 mg PO DAILY [facility] Last Admin: 05/30/19 11:15 Dose: 120 mg Donepezil HCl (Aricept -) 5 mg PO HS [facility] Last Admin: 05/29/19 21:25 Dose: 5 mg Donepezil HCl (Aricept -) 10 mg PO DAILY [facility] Last Admin: 05/30/19 11:15 Dose: 10 mg Famotidine (Famotidine) 20 mg PO BID [facility] Last Admin: 05/30/19 11:16 Dose: 20 mg Piperacillin Sod/Tazobactam (Sod 3.375 gm/ Dextrose) 50 mls @ 100 mls/hr IVPB Q8H-IV [facility]; Protocol Last Admin: 05/30/19 11:15 Dose: 100 mls/hr Vancomycin HCl (Vancomycin (Pre-Docked)) 1,000 mg in 250 mls @ 166.667 mls/hr IVPB Q24H [facility]; Protocol Last Admin: 05/29/19 12:36 Dose: Not Given Levothyroxine Sodium (Synthroid -) 25 mcg PO DAILY@0700 [facility] Last Admin: 05/30/19 06:07 Dose: 25 mcg Metoprolol Succinate (Toprol Xl -) 50 mg PO DAILY [facility] Last Admin: 05/30/19 11:15 Dose: 50 mg Ondansetron HCl (Zofran -) 4 mg PO Q8H PRN PRN Reason: NAUSEA AND/OR VOMITING Last Admin: 05/28/19 09:38 Dose: 4 mg Potassium Chloride (K-Dur -) 40 meq PO DAILY [facility] Last Admin: 05/30/19 11:15 Dose: 40 meq - Objective Vital Signs: Vital Signs Temperature 98.2 F 05/30/19 10:00 Pulse Rate 84 05/30/19 11:16 Respiratory Rate 20 05/30/19 10:00 Blood Pressure 118/77 05/30/19 10:00 O2 Sat by Pulse Oximetry (%) 90 L 05/30/19 09:00 Constitutional: Yes: Well Nourished, No Distress, Calm Cardiovascular: Yes: Regular Rate and Rhythm, Murmur (Grade III/Vi) Respiratory: Yes: Regular, On Nasal O2, Rales (BLL) Gastrointestinal: Yes: Normal Bowel Sounds, Soft Genitourinary: Yes: Incontinence Musculoskeletal: Yes: Muscle Weakness Extremities: Yes: WNL Edema: Yes Edema: LLE: 1+, RLE: 1+ Peripheral Pulses WNL: Yes Neurological: Yes: Alert, Pre-Existing Deficit Psychiatric: Yes: Alert Labs: CBC, BMP 05/29/19 05:40 05/30/19 06:12 INR, PTT INR 1.24 (0.83-1.09) H 05/13/19 07:00 Problem List - Problems (1) Pneumonia Assessment/Plan: -ID + pulmonary on board -IV abx, change to PO as per ID -Acetaminophen for fever >100.0F -Bronchodilators -Nasal O2 to keep SpO>90% Problems reviewed: Yes Code(s): J18.9 - PNEUMONIA, UNSPECIFIED ORGANISM (2) Lesion of spleen Assessment/Plan: -Likely benign -Had similar finding on previous CT -Oncology has been consulted Problems reviewed: Yes Code(s): D73.9 - DISEASE OF SPLEEN, UNSPECIFIED (3) CAD (coronary artery disease) Assessment/Plan: -Cardiology on board -Tele monitor -Continue home meds Code(s): I25.10 - ATHSCL HEART DISEASE OF [place] CORONARY ARTERY W/O ANG PCTRS (4) CHF exacerbation Assessment/Plan: -Furosemide on hold -Daily weights -low sodium diet -Fluid restriction Problems reviewed: Yes Code(s): I50.9 - HEART FAILURE, UNSPECIFIED (5) Dementia Problems reviewed: Yes Code(s): F03.90 - UNSPECIFIED DEMENTIA WITHOUT BEHAVIORAL DISTURBANCE (6) Hypokalemia Assessment/Plan: -KCl to 40 meq po daily -monitor trend Code(s): E87.6 - HYPOKALEMIA (7) Metabolic encephalopathy Assessment/Plan: -2/2 to pneumonia Problems reviewed: Yes Code(s): G93.41 - METABOLIC ENCEPHALOPATHY (8) DVT (deep venous thrombosis) Assessment/Plan: -LLE -Change Eliquis to 5 mg po BID Problems reviewed: Yes Code(s): I82.409 - ACUTE EMBOLISM AND THOMBOS UNSP DEEP VN UNSP LOWER EXTREMITY Qualifiers: DVT location: lower extremity
[2019-05-30] MEDS: VANCOMYCIN 1 GRAM (PRE-DOCKED) 1,000 MG/250 ML BAG IVPB SCH (12:10)
[2019-05-30] MEDS ORDERED: ACETAMINOPHEN 325 MG TABLET (FP) PO PRN (13:48)
[2019-05-30] MEDS ORDERED: ONDANSETRON 4 MG TABLET PO PRN (13:48)
[2019-05-30 14:41] LABS: EPI CELLS 21.3 /HPF (0-5/HPF); HYALINE CASTS 15 /lpf (0-8); PH,URINE 6.5 (5.0-8.0); URINE APPEARANCE CLOUDY; URINE BACTERIA 2.6 /hpf (NEGATIVE); URINE BILIRUBIN NEGATIVE (NEGATIVE); URINE COLOR YELLOW; URINE GLUCOSE (UA) NEGATIVE (NEGATIVE); URINE KETONE NEGATIVE (NEGATIVE); URINE LEUK ESTERASE 1+ (NEGATIVE); URINE NITRITE NEGATIVE (NEGATIVE); URINE PROTEIN TRACE (NEGATIVE); URINE RBC 5 /hpf (0-4); URINE WBC 21 /hpf (0-5)
[2019-05-30 15:01] LABS: YEAST NONE SEEN (NEGATIVE)
--- NOTE | 2019-05-30 15:39 | PN ---
Progress Note, Physician History of Present Illness: LETHARGIC SUPINE IN BED OFFERS NO COMPLAINTS DENIES DYSPNEA/ COUGH NO C/O LEG PAIN AFEBRILE - Current Medication List Current Medications: Active Medications Acetaminophen (Tylenol -) 650 mg PO Q4H PRN PRN Reason: PAIN Al Hydroxide/Mg Hydroxide (Mylanta Oral Suspension -) 30 ml PO TID [facility] Last Admin: 05/30/19 14:15 Dose: Not Given Apixaban (Eliquis -) 2.5 mg PO BID [facility] Digoxin (Lanoxin -) 0.125 mg PO DAILY [facility] Diltiazem HCl (Cardizem Cd -) 120 mg PO DAILY [facility] Donepezil HCl (Aricept -) 5 mg PO HS [facility] Donepezil HCl (Aricept -) 10 mg PO DAILY [facility] Famotidine (Famotidine) 20 mg PO BID [facility] Vancomycin HCl (Vancomycin (Pre-Docked)) 1,000 mg in 250 mls @ 166.667 mls/hr IVPB Q24H [facility]; Protocol Last Admin: 05/30/19 12:10 Dose: 166.667 mls/hr Piperacillin Sod/Tazobactam (Sod 3.375 gm/ Dextrose) 50 mls @ 100 mls/hr IVPB Q8H-IV [facility]; Protocol Levothyroxine Sodium (Synthroid -) 25 mcg PO DAILY@0700 [facility] Metoprolol Succinate (Toprol Xl -) 50 mg PO DAILY [facility] Ondansetron HCl (Zofran -) 4 mg PO Q8H PRN PRN Reason: NAUSEA AND/OR VOMITING Last Admin: 05/30/19 14:02 Dose: 4 mg Potassium Chloride (K-Dur -) 40 meq PO DAILY [facility] - Objective Vital Signs: Vital Signs Temperature 98.5 F 05/30/19 14:00 Pulse Rate 67 05/30/19 14:00 Respiratory Rate 20 05/30/19 14:15 Blood Pressure 135/70 05/30/19 14:00 O2 Sat by Pulse Oximetry (%) 94 L 05/30/19 14:15 Constitutional: Yes: No Distress Cardiovascular: Yes: Regular Rate and Rhythm, S1, S2 Respiratory: Yes: CTA Bilaterally Gastrointestinal: Yes: Normal Bowel Sounds, Soft. No: Tenderness Extremities: Yes: Other (ERYTHEMA/ WARMTH LE NEARLY ALL RESOLVED SWELLING IMPROVED) Labs: CBC, BMP 05/29/19 05:40 05/30/19 06:12 INR, PTT INR 1.24 (0.83-1.09) H 05/13/19 07:00 Assessment/Plan PNEUMONIA CELLULITIS / DVT L LE IMPROVED LEUKOCYTOSIS IMPROVED LACTIC ACIDOSIS RESOLVED TOXIC METABOLIC ENCEPHALOPATHY / OBS SUBSTITUTE KEFLEX 500MG PO BID X 3D
--- NOTE | 2019-05-30 16:06 | PN ---
Progress Note (short form) - Note Progress Note: Renal follow up for NAVID Seen and examined at the bedside offers no acute complaints complains of diffuse pain no sob, cp, fever or chills Vital Signs Temperature 98.5 F 05/30/19 14:00 Pulse Rate 67 05/30/19 14:00 Respiratory Rate 20 05/30/19 14:15 Blood Pressure 135/70 05/30/19 14:00 O2 Sat by Pulse Oximetry (%) 94 L 05/30/19 14:15 Intake & Output 05/27/19 05/28/19 05/29/19 05/30/19 23:59 23:59 23:59 23:59 Intake Total 1233 550 750 730 Balance 1233 550 750 730 Weight 68.946 kg 68.13 kg NAD awake and alert neck supple RRR CTA soft NT/ND no LE edema CBC, BMP 05/29/19 05:40 05/30/19 06:12 Current Medications Acetaminophen (Tylenol -) 650 mg PO Q4H PRN PRN Reason: PAIN Al Hydroxide/Mg Hydroxide (Mylanta Oral Suspension -) 30 ml PO TID [facility] Last Admin: 05/30/19 14:15 Dose: Not Given Apixaban (Eliquis -) 2.5 mg PO BID [facility] Cephalexin HCl (Keflex -) 500 mg PO BID [facility] Digoxin (Lanoxin -) 0.125 mg PO DAILY [facility] Diltiazem HCl (Cardizem Cd -) 120 mg PO DAILY [facility] Donepezil HCl (Aricept -) 5 mg PO HS [facility] Donepezil HCl (Aricept -) 10 mg PO DAILY [facility] Famotidine (Famotidine) 20 mg PO BID [facility] Levothyroxine Sodium (Synthroid -) 25 mcg PO DAILY@0700 [facility] Metoprolol Succinate (Toprol Xl -) 50 mg PO DAILY [facility] Ondansetron HCl (Zofran -) 4 mg PO Q8H PRN PRN Reason: NAUSEA AND/OR VOMITING Last Admin: 05/30/19 14:02 Dose: 4 mg Potassium Chloride (K-Dur -) 40 meq PO DAILY [facility] 74 year old woman with history of COPD, CHF, AAA, hypertension, dementia, hypothyroidism, RA who presented with AMS and found to have lower extremity DVT , sepsis from pneumonia and now with NVAID. 1. Acute kidney injury secondary to contrast nephrtopathy vs. normotensive ATN vs. AIN vs. Vancomycin toxicity 2. Sepsis from PNA 3. Lower extremity DVT 4. Hyponatremia 5. History of hypertension Renal function is improved and stable Renal US showed no obstruction Hold Enalapril for now given renal injury Keep MAP > 65 Vanco level is 23 today, hold Vanco, check level in AM Trend renal function and electrolytes daily Avoid further IV contrast and nephrotoxins Thank you Kye Church DO
[2019-05-30] MEDS ORDERED: PIPERACILLIN/TAZOB 3.375 GM 3.375 GM in DEXTROSE 5%-WATER - 50 ML IVPB SCH (18:00)
[2019-05-30] MEDS: APIXABAN 5 MG TABLET PO SCH (21:42)
[2019-05-30] MEDS: CEPHALEXIN MONOHYDRATE 500 MG CAPSULE (UD) PO SCH (21:42)
[2019-05-30] MEDS ORDERED: DONEPEZIL HCL 5 MG TABLET (FP) PO SCH (22:00)
[2019-05-30] MEDS ORDERED: APIXABAN 2.5 MG TABLET PO SCH (22:00)
[2019-05-31] MEDS: MAG HYDROX/AL HYDROX/SIMETH 30 ML UNIT-DOSE CUP PO SCH ×2 (06:31→15:14)
[2019-05-31] MEDS ORDERED: LEVOTHYROXINE NA 25 MCG TABLET (FP) PO SCH (07:00)
[2019-05-31 08:32] LABS: BASO % 1.2 % (0-2.0); EOS % 2.5 % (0-4.5); HEMATOCRIT 31.1 % (32.4-45.2); HEMOGLOBIN 10.4 GM/dL (10.7-15.3); LYMPH % 11.8 % (8-40); MCH 29.9 pg (25.7-33.7); MCHC 33.3 g/dl (32.0-36.0); MEAN CELL VOLUME 89.7 fl (80-96); MEAN PLT VOLUME 6.6 fl (7.5-11.1); MONO % 7.6 % (3.8-10.2); NEUT % 76.9 % (42.8-82.8); PLATELET COUNT 357 K/MM3 (134-434); RBC 3.47 M/mm3 (3.60-5.2); RDW 21.6 % (11.6-15.6); WHITE BLOOD COUNT 11.9 K/mm3 (4.0-10.0)
[2019-05-31 09:09] LABS: BLOOD UREA NITROGEN 9.9 mg/dL (7-18); CALCIUM 8.7 mg/dL (8.5-10.1); CREATININE 1.2 mg/dL (0.55-1.3); MAGNESIUM 2.3 mg/dL (1.8-2.4); PHOSPHOROUS 3.5 mg/dL (2.5-4.9); POTASSIUM 4.4 mmol/L (3.5-5.1)
[2019-05-31] MEDS ORDERED: DONEPEZIL HCL 10 MG TABLET (FP) PO SCH ×2 (10:00)
[2019-05-31] MEDS ORDERED: DIGOXIN 0.125 MG TABLET (FP) PO SCH (10:00)
[2019-05-31] MEDS ORDERED: POTASSIUM CHLORIDE TABS 20 MEQ TABLET.ER (FP) PO SCH (10:00)
[2019-05-31 10:24] LABS: ANISOCYTOSIS 2+; MACROCYTOSIS 0; PLATELET ESTIMATE NORMAL
[2019-05-31] MEDS: CEPHALEXIN MONOHYDRATE 500 MG CAPSULE (UD) PO SCH (10:51)
[2019-05-31] MEDS: APIXABAN 5 MG TABLET PO SCH (10:52)
[2019-05-31] MEDS: FAMOTIDINE 40 MG/5 ML ORAL SUSPENSION PO SCH (10:54)
--- NOTE | 2019-05-31 12:11 | PN ---
Progress Note, Physician Chief Complaint: Pneumonia CHF Metabolic Encephalopathy History of Present Illness: Previous notes and events reviewed awake and alert NAD - Current Medication List Current Medications: Active Medications Acetaminophen (Tylenol -) 650 mg PO Q4H PRN PRN Reason: PAIN Al Hydroxide/Mg Hydroxide (Mylanta Oral Suspension -) 30 ml PO TID [facility] Last Admin: 05/31/19 06:31 Dose: 30 ml Apixaban (Eliquis -) 5 mg PO BID [facility] Last Admin: 05/31/19 10:52 Dose: 5 mg Cephalexin HCl (Keflex -) 500 mg PO BID [facility] Last Admin: 05/31/19 10:51 Dose: 500 mg Digoxin (Lanoxin -) 0.125 mg PO DAILY [facility] Last Admin: 05/31/19 10:52 Dose: 0.125 mg Diltiazem HCl (Cardizem Cd -) 120 mg PO DAILY [facility] Last Admin: 05/31/19 10:51 Dose: 120 mg Donepezil HCl (Aricept -) 5 mg PO HS [facility] Last Admin: 05/30/19 21:41 Dose: 5 mg Donepezil HCl (Aricept -) 10 mg PO DAILY [facility] Famotidine (Famotidine) 20 mg PO BID [facility] Last Admin: 05/31/19 10:54 Dose: 20 mg Levothyroxine Sodium (Synthroid -) 25 mcg PO DAILY@0700 [facility] Last Admin: 05/31/19 06:31 Dose: 25 mcg Metoprolol Succinate (Toprol Xl -) 50 mg PO DAILY [facility] Last Admin: 05/31/19 10:52 Dose: 50 mg Ondansetron HCl (Zofran -) 4 mg PO Q8H PRN PRN Reason: NAUSEA AND/OR VOMITING Last Admin: 05/30/19 14:02 Dose: 4 mg - Objective Vital Signs: Vital Signs Temperature 98.8 F 05/31/19 10:00 Pulse Rate 72 05/31/19 10:52 Respiratory Rate 18 05/31/19 10:00 Blood Pressure 153/63 05/31/19 10:00 O2 Sat by Pulse Oximetry (%) 94 L 05/30/19 22:11 Labs: CBC, BMP 05/31/19 07:10 05/31/19 07:10 INR, PTT INR 1.24 (0.83-1.09) H 05/13/19 07:00 Problem List - Problems (1) Hypothyroid Code(s): E03.9 - HYPOTHYROIDISM, UNSPECIFIED (2) PSVT (paroxysmal supraventricular tachycardia) Code(s): I47.1 - SUPRAVENTRICULAR TACHYCARDIA (3) Pneumonia Code(s): J18.9 - PNEUMONIA, UNSPECIFIED ORGANISM (4) CAD (coronary artery disease) Code(s): I25.10 - ATHSCL HEART DISEASE OF [place] CORONARY ARTERY W/O ANG PCTRS (5) COPD exacerbation Code(s): J44.1 - CHRONIC OBSTRUCTIVE PULMONARY DISEASE W (ACUTE) EXACERBATION (6) Hypertension Code(s): I10 - ESSENTIAL (PRIMARY) HYPERTENSION (7) Metabolic encephalopathy Code(s): G93.41 - METABOLIC ENCEPHALOPATHY (8) Edema of left lower extremity Code(s): R60.0 - LOCALIZED EDEMA
--- NOTE | 2019-05-31 13:13 | DS ---
Physical Examination Vital Signs: Vital Signs Temperature 98.8 F 05/31/19 10:00 Pulse Rate 72 05/31/19 10:52 Respiratory Rate 18 05/31/19 10:00 Blood Pressure 153/63 05/31/19 10:00 O2 Sat by Pulse Oximetry (%) 94 L 05/30/19 22:11 Findings/Remarks: Laboratory Results - last 24 hr 05/30/19 05/30/19 05/30/19 13:00 13:00 13:00 WBC RBC Hgb Hct MCV MCH MCHC RDW Plt Count MPV Absolute Neuts (auto) Neutrophils % Lymphocytes % Monocytes % Eosinophils % Basophils % Nucleated RBC % Hypochromia Platelet Estimate Polychromasia Poikilocytosis Anisocytosis Microcytosis Macrocytosis Spherocytes Stomatocytes Sodium Potassium Chloride Carbon Dioxide Anion Gap BUN Creatinine Est GFR (CKD-EPI)AfAm Est GFR (CKD-EPI)NonAf Random Glucose Calcium Phosphorus Magnesium Urine Color Urine Appearance Urine pH Ur Specific [place] Urine Protein Urine Glucose (UA) Urine Ketones Urine Blood Urine Nitrite Urine Bilirubin Urine Urobilinogen Ur Leukocyte Esterase Urine WBC (Auto) Urine RBC (Auto) Urine Casts (Auto) U Pathogenic Cast Auto U Epithel Cells (Auto) U Sm Round Cell (Auto) Urine Bacteria (Auto) Urine Yeast (Auto) Ur Random Creatinine 70.0 U Random Total Protein 48.4 H Cancelled Ur Random Sodium Ur Random Urea Nitrogn 267 L Cancelled Urine Creatinine 70.0 Cancelled Protein/Creatinin Ratio 0.7 Cancelled 05/30/19 05/30/19 05/31/19 13:00 13:00 07:10 WBC RBC Hgb Hct MCV MCH MCHC RDW Plt Count MPV Absolute Neuts (auto) Neutrophils % Lymphocytes % Monocytes % Eosinophils % Basophils % Nucleated RBC % Hypochromia Platelet Estimate Polychromasia Poikilocytosis Anisocytosis Microcytosis Macrocytosis Spherocytes Stomatocytes Sodium 136 Potassium 4.4 Chloride 98 Carbon Dioxide 34 H Anion Gap 4 L BUN 9.9 Creatinine 1.2 Est GFR (CKD-EPI)AfAm 51.92 Est GFR (CKD-EPI)NonAf 44.80 Random Glucose 94 Calcium 8.7 Phosphorus 3.5 Magnesium 2.3 Urine Color Yellow Urine Appearance Cloudy Urine pH 6.5 Ur Specific [place] 1.013 Urine Protein Trace Urine Glucose (UA) Negative Urine Ketones Negative Urine Blood 1+ H Urine Nitrite Negative Urine Bilirubin Negative Urine Urobilinogen 1.0 Ur Leukocyte Esterase 1+ H Urine WBC (Auto) 21 Urine RBC (Auto) 5 Urine Casts (Auto) 15 U Pathogenic Cast Auto None seen U Epithel Cells (Auto) 21.3 U Sm Round Cell (Auto) None seen Urine Bacteria (Auto) 2.6 Urine Yeast (Auto) None seen Ur Random Creatinine U Random Total Protein Ur Random Sodium 48 Ur Random Urea Nitrogn Urine Creatinine Protein/Creatinin Ratio 05/31/19 07:10 WBC 11.9 H RBC 3.47 L Hgb 10.4 L Hct 31.1 L MCV 89.7 MCH 29.9 MCHC 33.3 RDW 21.6 H Plt Count 357 MPV 6.6 L Absolute Neuts (auto) 9.1 H Neutrophils % 76.9 Lymphocytes % 11.8 D Monocytes % 7.6 Eosinophils % 2.5 Basophils % 1.2 Nucleated RBC % 0 Hypochromia 1+ Platelet Estimate Normal Polychromasia 2+ Poikilocytosis 2+ Anisocytosis 2+ Microcytosis 2+ Macrocytosis 0 Spherocytes 1+ Stomatocytes 2+ Sodium Potassium Chloride Carbon Dioxide Anion Gap BUN Creatinine Est GFR (CKD-EPI)AfAm Est GFR (CKD-EPI)NonAf Random Glucose Calcium Phosphorus Magnesium Urine Color Urine Appearance Urine pH Ur Specific [place] Urine Protein Urine Glucose (UA) Urine Ketones Urine Blood Urine Nitrite Urine Bilirubin Urine Urobilinogen Ur Leukocyte Esterase Urine WBC (Auto) Urine RBC (Auto) Urine Casts (Auto) U Pathogenic Cast Auto U Epithel Cells (Auto) U Sm Round Cell (Auto) Urine Bacteria (Auto) Urine Yeast (Auto) Ur Random Creatinine U Random Total Protein Ur Random Sodium Ur Random Urea Nitrogn Urine Creatinine Protein/Creatinin Ratio Active Medications Generic Name Dose Route Start Last Admin Trade Name Freq PRN Reason Stop Dose Admin Acetaminophen 650 mg 05/30/19 13:48 Tylenol - PO Q4H PRN PAIN Al Hydroxide/Mg Hydroxide 30 ml 05/30/19 14:00 05/31/19 06:31 Mylanta Oral Suspension - PO 30 ml TID [facility] Administration Apixaban 5 mg 05/30/19 22:00 05/31/19 10:52 Eliquis - PO 5 mg BID [facility] Administration Cephalexin HCl 500 mg 05/30/19 22:00 05/31/19 10:51 Keflex - PO 500 mg BID [facility] Administration Digoxin 0.125 mg 05/31/19 10:00 05/31/19 10:52 Lanoxin - PO 0.125 mg DAILY [facility] Administration Diltiazem HCl 120 mg 05/31/19 10:00 05/31/19 10:51 Cardizem Cd - PO 120 mg DAILY [facility] Administration Donepezil HCl 5 mg 05/30/19 22:00 05/30/19 21:41 Aricept - PO 5 mg HS [facility] Administration Donepezil HCl 10 mg 05/31/19 10:00 Aricept - PO DAILY [facility] Famotidine 20 mg 05/30/19 22:00 05/31/19 10:54 Famotidine PO 20 mg BID [facility] Administration Levothyroxine Sodium 25 mcg 05/31/19 07:00 05/31/19 06:31 Synthroid - PO 25 mcg DAILY@0700 [facility] Administration Metoprolol Succinate 50 mg 05/31/19 10:00 05/31/19 10:52 Toprol Xl - PO 50 mg DAILY [facility] Administration Ondansetron HCl 4 mg 05/30/19 13:48 05/30/19 14:02 Zofran - PO 4 mg Q8H PRN Administration NAUSEA AND/OR VOMITING Microbiology 05/30/19 13:00 Sputum - Expectorated Sputum Culture - Preliminary NORMAL RESPIRATORY MONIQUE 05/20/19 20:10 Nares - Mrsa Screen - Left MRSA Screen - Final NO MRSA ISOLATED 05/20/19 20:10 Nares - Mrsa Screen - Left MRSA Screen - Final NO MRSA ISOLATED 05/15/19 15:00 Blood - Peripheral Venous Blood Culture - Final NO GROWTH AFTER 5 DAYS INCUBATION 05/15/19 15:10 Blood - Peripheral Venous Blood Culture - Final NO GROWTH AFTER 5 DAYS INCUBATION 05/12/19 08:40 Blood - Peripheral Venous Blood Culture - Final NO GROWTH AFTER 5 DAYS INCUBATION 05/12/19 08:40 Blood - Peripheral Venous Blood Culture - Final NO GROWTH AFTER 5 DAYS INCUBATION 05/12/19 21:10 Urine For Antigen Detection Legionella Antigen - Final 05/12/19 21:10 Urine For Antigen Detection Streptococcus pneumoniae Antigen (M - Final 05/12/19 10:20 Urine - Urine - Catheterized Urine Culture - Final NO GROWTH OBTAINED Constitutional: Yes: No Distress, Calm Eyes: Yes: Conjunctiva Clear HENT: Yes: Atraumatic Cardiovascular: Yes: Regular Rate and Rhythm Respiratory: Yes: Regular, Diminished, On Nasal O2 Gastrointestinal: Yes: Normal Bowel Sounds, Soft Renal/: Yes: Incontinence Musculoskeletal: Yes: Muscle Weakness Extremities: Yes: WNL Edema: No Neurological: Yes: Alert, Oriented, Pre-Existing Deficit Psychiatric: Yes: Alert Labs: CBC, BMP 05/31/19 07:10 05/31/19 07:10 Discharge Summary Problems reviewed: Yes Reason For Visit: SUPRAVENTRICULAR TACHYCARDIA,SESPIS Current Active Problems Cellulitis (Acute) Change in mental status (Acute) Community acquired pneumonia (Acute) DVT (deep venous thrombosis) (Acute) Edema of left lower extremity (Acute) Hypothyroid (Acute) Lesion of spleen (Acute) PSVT (paroxysmal supraventricular tachycardia) (Acute) Pneumonia (Acute) Hospital Course: 74yo F with PMH of COPD, CHF?, AAA, Thoracic Aneurysm, HTN, HLD, Dementia, Hypothyroidism, RA, Chronic Pain, who presents with altered mental status after being found down at home by her . The patient cannot provide further history as she doesnot know why she is in the hospital in rhe ER she found to have Patient was evaluated by ID and treated with IV antibiotics for Sepsis secondary to Pneumonia. During hospitalization she developed LLE edema and painful respiration. LLE US done and was positive for DVT. She was started on Heparin drip and eventually switch to oral Eliquis. 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 Dr Vicente as scheduled follow up with Pulmonary Dr Riddle continue with antibiotics as prescribed continue with medication as prescribed Referrals: Devin Fajardo MD [Primary Care Provider] - Antolin Vicente MD [Staff Physician] - Naveen Riddle MD [Staff Physician] - Disposition: [facility] - Home Medications Comprehensive Discharge Medication List: Ambulatory Orders Amlodipine Besylate 5 mg PO DAILY 03/07/19 Digoxin [Lanoxin -] 0.125 mg PO DAILY 03/07/19 Furosemide [Lasix] 20 mg PO DAILY 03/07/19 Levothyroxine [Synthroid -] 0 mcg PO DAILY 03/07/19 Ondansetron [Zofran -] 4 mg PO PRN 03/07/19 Pantoprazole Sodium 40 mg PO DAILY 03/07/19 Albuterol 2.5/Ipratropium 0.5 [Duoneb -] 1 amp NEB RQID amp 03/14/19 Azithromycin [Zithromax 250mg Tablets -] 250 mg PO DAILY #5 tablet 03/14/19 Enalapril Maleate [Vasotec -] 20 mg PO DAILY #60 tablet 03/14/19 Methotrexate [Mexate -] 20 mg PO Mo@1000 tablet 03/14/19 Metoprolol Succinate [Toprol XL -] 50 mg PO DAILY #30 tab.sr.24h 03/14/19 Mirtazapine [Remeron -] 15 mg PO HS #30 tablet 03/14/19 predniSONE [Deltasone -] 10 mg PO DAILY #100 tablet 03/14/19
--- NOTE | 2019-05-31 13:19 | PN ---
Progress Note (short form) - Note Progress Note: Renal follow up for NAVID Seen and examined at the bedside offers no acute complaints has body pains (chronic) no sob, cp, abd pain, N/V Vital Signs Temperature 98.8 F 05/31/19 10:00 Pulse Rate 72 05/31/19 10:52 Respiratory Rate 18 05/31/19 10:00 Blood Pressure 153/63 05/31/19 10:00 O2 Sat by Pulse Oximetry (%) 94 L 05/30/19 22:11 Intake & Output 05/28/19 05/29/19 05/30/19 05/31/19 23:59 23:59 23:59 23:59 Intake Total 788 446 8652 250 Output Total 720 200 Balance 550 750 310 50 Weight 68.946 kg 68.13 kg 65.907 kg NAD awake and alert neck supple RRR CTA soft NT/ND no LE edema CBC, BMP 05/31/19 07:10 05/31/19 07:10 Current Medications Acetaminophen (Tylenol -) 650 mg PO Q4H PRN PRN Reason: PAIN Al Hydroxide/Mg Hydroxide (Mylanta Oral Suspension -) 30 ml PO TID [facility] Last Admin: 05/31/19 06:31 Dose: 30 ml Apixaban (Eliquis -) 5 mg PO BID [facility] Last Admin: 05/31/19 10:52 Dose: 5 mg Cephalexin HCl (Keflex -) 500 mg PO BID [facility] Last Admin: 05/31/19 10:51 Dose: 500 mg Digoxin (Lanoxin -) 0.125 mg PO DAILY [facility] Last Admin: 05/31/19 10:52 Dose: 0.125 mg Diltiazem HCl (Cardizem Cd -) 120 mg PO DAILY [facility] Last Admin: 05/31/19 10:51 Dose: 120 mg Donepezil HCl (Aricept -) 5 mg PO HS [facility] Last Admin: 05/30/19 21:41 Dose: 5 mg Donepezil HCl (Aricept -) 10 mg PO DAILY [facility] Famotidine (Famotidine) 20 mg PO BID [facility] Last Admin: 05/31/19 10:54 Dose: 20 mg Levothyroxine Sodium (Synthroid -) 25 mcg PO DAILY@0700 [facility] Last Admin: 05/31/19 06:31 Dose: 25 mcg Metoprolol Succinate (Toprol Xl -) 50 mg PO DAILY [facility] Last Admin: 05/31/19 10:52 Dose: 50 mg Ondansetron HCl (Zofran -) 4 mg PO Q8H PRN PRN Reason: NAUSEA AND/OR VOMITING Last Admin: 05/30/19 14:02 Dose: 4 mg 74 year old woman with history of COPD, CHF, AAA, hypertension, dementia, hypothyroidism, RA who presented with AMS and found to have lower extremity DVT , sepsis from pneumonia and now with NAVID. 1. Acute kidney injury secondary to contrast nephrtopathy vs. normotensive ATN vs. AIN vs. Vancomycin toxicity 2. Sepsis from PNA 3. Lower extremity DVT 4. Hyponatremia 5. History of hypertension Renal function is improved and stable Renal US showed no obstruction would continue to hold Enalapril for now as eGFR not yet at baseline Completed course of VAnco Avoid further IV contrast and nephrotoxins stable for discharge with outpatient monitoring of CR Thank you Kye Church DO
[2019-05-31 15:29] VITALS: PULSE 76
--- NOTE | 2019-05-31 15:30 | PN ---
Progress Note (short form) - Note Progress Note: PULMONARY Denies shortness of breath, cough. Vital Signs Period Temp Pulse Resp BP Sys/Barillas Pulse Ox Last 24 Hr 97.4 F-99.4 F 61-79 18-20 114-153/55-68 94 Gen: NAD at rest Heart: RRR Lung: decreased breath sounds at the bases Abd: soft, nontender Ext: no edema CBC, BMP 05/31/19 07:10 05/31/19 07:10 Active Medications Acetaminophen (Tylenol -) 650 mg PO Q4H PRN PRN Reason: PAIN Al Hydroxide/Mg Hydroxide (Mylanta Oral Suspension -) 30 ml PO TID [facility] Last Admin: 05/31/19 15:14 Dose: 30 ml Apixaban (Eliquis -) 5 mg PO BID [facility] Last Admin: 05/31/19 10:52 Dose: 5 mg Cephalexin HCl (Keflex -) 500 mg PO BID [facility] Last Admin: 05/31/19 10:51 Dose: 500 mg Digoxin (Lanoxin -) 0.125 mg PO DAILY [facility] Last Admin: 05/31/19 10:52 Dose: 0.125 mg Diltiazem HCl (Cardizem Cd -) 120 mg PO DAILY [facility] Last Admin: 05/31/19 10:51 Dose: 120 mg Donepezil HCl (Aricept -) 5 mg PO HS [facility] Last Admin: 05/30/19 21:41 Dose: 5 mg Donepezil HCl (Aricept -) 10 mg PO DAILY [facility] Famotidine (Famotidine) 20 mg PO BID [facility] Last Admin: 05/31/19 10:54 Dose: 20 mg Levothyroxine Sodium (Synthroid -) 25 mcg PO DAILY@0700 [facility] Last Admin: 05/31/19 06:31 Dose: 25 mcg Metoprolol Succinate (Toprol Xl -) 50 mg PO DAILY [facility] Last Admin: 05/31/19 10:52 Dose: 50 mg Ondansetron HCl (Zofran -) 4 mg PO Q8H PRN PRN Reason: NAUSEA AND/OR VOMITING Last Admin: 05/30/19 14:02 Dose: 4 mg A/P Pneumonia Sepsis Lactic Acidosis resolved Acute Kidney Injury improving Acute on Chronic Diastolic Heart Failure MAT LLE DVT Hyponatremia COPD Pulmonary HTN Thoracic/Abdominal Aortic Aneurysms HTN - monitor urine output, creatinine - daily weights - complete antibiotics - inhaled bronchodilators - rate control - continue anticoagulation - O2 to keep SpO2 >90%
--- NOTE | 2019-05-31 15:33 | PN ---
Progress Note (short form) - Note Progress Note: s: no chest pain, palps, dizziness. Current Medications Generic Name Dose Route Start Last Admin Trade Name Freq PRN Reason Stop Dose Admin Acetaminophen 650 mg 05/30/19 13:48 Tylenol - PO Q4H PRN PAIN Al Hydroxide/Mg Hydroxide 30 ml 05/30/19 14:00 05/31/19 15:14 Mylanta Oral Suspension - PO 30 ml TID [facility] Administration Apixaban 5 mg 05/30/19 22:00 05/31/19 10:52 Eliquis - PO 5 mg BID [facility] Administration Cephalexin HCl 500 mg 05/30/19 22:00 05/31/19 10:51 Keflex - PO 500 mg BID [facility] Administration Digoxin 0.125 mg 05/31/19 10:00 05/31/19 10:52 Lanoxin - PO 0.125 mg DAILY [facility] Administration Diltiazem HCl 120 mg 05/31/19 10:00 05/31/19 10:51 Cardizem Cd - PO 120 mg DAILY [facility] Administration Donepezil HCl 5 mg 05/30/19 22:00 05/30/19 21:41 Aricept - PO 5 mg HS [facility] Administration Donepezil HCl 10 mg 05/31/19 10:00 Aricept - PO DAILY [facility] Famotidine 20 mg 05/30/19 22:00 05/31/19 10:54 Famotidine PO 20 mg BID [facility] Administration Levothyroxine Sodium 25 mcg 05/31/19 07:00 05/31/19 06:31 Synthroid - PO 25 mcg DAILY@0700 [facility] Administration Metoprolol Succinate 50 mg 05/31/19 10:00 05/31/19 10:52 Toprol Xl - PO 50 mg DAILY [facility] Administration Ondansetron HCl 4 mg 05/30/19 13:48 05/30/19 14:02 Zofran - PO 4 mg Q8H PRN Administration NAUSEA AND/OR VOMITING Vital Signs Period Temp Pulse Resp BP Sys/Barillas Pulse Ox Last 24 Hr 97.4 F-99.4 F 61-79 18-20 114-153/55-68 94 Constitutional: Yes: No Distress, Calm Eyes: No: Sclera Icterus HENT: No: Nasal Congestion Cardiovascular: Yes: Regular Rate and Rhythm, JVD (possible (accessory muscle ( SCM) use confounds)), S1, S2, Other (PMI non diplaced). No: Gallop, Murmur Respiratory: Yes: CTA Bilaterally (decr diffusely). No: Accessory Muscle Use, Rales, Wheezes Gastrointestinal: Yes: Normal Bowel Sounds, Soft. No: Tenderness Musculoskeletal: Yes: Other (No kyphosis) Extremities: No: Cold, Cyanosis Edema: Yes trace Integumentary: No: Jaundice Neurological: Yes: Alert. No: Seizure Psychiatric: No: Agitated CBC, BMP 05/31/19 07:10 05/31/19 07:10 Assessment/Plan Echo 04/2019: mild LVH. grossly nl LVEF (50%). grossly nl RV. mild-mod AI. LLE DVT PNA/Sepsis Possible syncope in setting of above, with SVT in setting acute infection/sepsis , now resolved COPD h/o tachy CM due to MAT with EF now normalized Possible CAD (prior mild abn stress) Peptic ulcer disease (NSAIDS) Thoracic and abdominal aneurysms REC: - Has tolerated UFH gtts well without bleeding (h/o PUD). Now on eliquis, heme following - Abx per ID. - On Dig, Dilt and Metoprolol for rate control (MAT and PSVT), now stable. - Not on ASA for Presumed CAD (previous abnl stress MPI) due to NSAID ulcer disease, now on noac as above - no volume overload, s/p iv diuresis--defer lasix
[2019-05-31] MEDS ORDERED: NYSTATIN POWDER 100,000 UNITS/GM - 15 GM TOPICAL POWDER TP SCH (16:30)
[2019-05-31 17:38] VITALS: BP 152/56; TEMP 98.9
[2019-06-03 21:40] VITALS: BMI 25.9
== END 2019-05-31 18:02 | DRG 871 ==
LOC: JER 07:47 → JERBED 10:03 → J4W 20:07 → J8W 05-30 13:30
PROVIDERS: ADMIT Family Medicine; ATTEND Family Medicine
DX: A41.9 Sepsis, unspecified organism (principal); J18.9 Pneumonia, unspecified organism; G93.41 Metabolic encephalopathy; I50.33 Acute on chronic diastolic (congestive) heart failure; N39.0 Urinary tract infection, site not specified; I47.1 Supraventricular tachycardia; E87.2 Acidosis; L03.116 Cellulitis of left lower limb; I82.402 Acute embolism and thrombosis of unspecified deep veins of left lower extremity; N17.9 Acute kidney failure, unspecified; E87.1 Hypo-osmolality and hyponatremia; D73.9 Disease of spleen, unspecified; R50.9 Fever, unspecified; J44.9 Chronic obstructive pulmonary disease, unspecified; I71.4 Abdominal aortic aneurysm, without rupture; I27.20 Pulmonary hypertension, unspecified; I10 Essential (primary) hypertension; E78.5 Hyperlipidemia, unspecified; R60.0 Localized edema; E03.9 Hypothyroidism, unspecified; D72.829 Elevated white blood cell count, unspecified; E87.6 Hypokalemia; R41.82 Altered mental status, unspecified; I25.10 Atherosclerotic heart disease of native coronary artery without angina pectoris; F03.90 Unspecified dementia, unspecified severity, without behavioral disturbance, psychotic disturbance, mood disturbance, and anxiety
CPT/HCPCS: 36415; 36600; 70450-TC; 71045-TC-FY; 71275-TC; 74177-TC; 76775-TC; 80048; 80053; 80162; 81003; 82140; 82272; 82550; 82553; 82565; 82570; 82607; 82803; 82962; 83605; 83735; 83880; 84100; 84156; 84300; 84443; 84484; 84540; 85025; 85027; 85610; 85651; 85730; 86593; 87040; 87070; 87081; 87086; 87205; 87899; 93005; 93010; 93306-TC; 93970-TC; 93971-TC; 94640; 94660; 97116-GP; 97162-GP; 99284-25; G0480; J0131; J1644; J7030; P9047; Q9967